=== PATIENT | male | born 1990 | race Caucasian/White ===

== ENCOUNTER 2023-03-08 20:13 | Emergency (ER) | payer OTHER, SELFPAY ==
[2023-03-08 20:17] VITALS: BP 167/100; PULSE 103; RESP 18; TEMP 36.2; O2SAT 98; BMI 25.8
--- NOTE | 2023-03-08 20:18 | ED_ITS ---
HPI - General Adult General Chief complaint: Extremity Problem Stated complaint: swollen limbs Time Seen by Provider: 03/08/23 22:59 Source: patient Mode of arrival: ambulatory Limitations: no limitations History of Present Illness HPI narrative: Patient's history of polysubstance abuse noticed increased leg swelling for last few months been to ER at [facility] noted to be with chronic liver disease workup is pending patient did not have follow-up patient denies any shortness of breath had venous Doppler done was negative patient patient denies any significant alcohol use Related Data Previous Rx's Medication Instructions Recorded magnesium oxide 400 mg PO DAILY #30 tabs 03/08/23 potassium chloride 10 mEq 10 meq PO DAILY #30 tabs 03/08/23 tablet,extended release (K-Tab) spironolactone 50 mg tablet 50 mg PO DAILY #30 tabs 03/08/23 Allergies Allergy/AdvReac Type Severity Reaction Status Date / Time No Known Allergies Allergy Verified 03/08/23 20:22 Review of Systems Review of Systems: Yes all other systems are reviewed and are negative [facility] Social History Social History Advance Directives: No Advance Directives Information Provided: No Physical Exam ED Vital Signs: Vital Signs - 24 hr 03/08/23 20:17 Temperature 97.1 F Pulse Rate 103 H Respiratory Rate 18 Blood Pressure 167/100 H Pulse Oximetry 98 Oxygen Delivery Method Room Air BMI result Body Mass Index 25.8 Appearance: Alert. Oriented X3. No acute distress. Eyes: icterus++ ENT: Pharynx normal. Oral Mucosa moist Neck: Normal inspection. Neck supple. CVS: Normal heart rate and rhythm. Pulses normal. Respiratory: No respiratory distress. Equal air entry bilateral, no wheezing/rales/rhonchi Abdomen: Soft and nontender. Bowel sounds are present, no mass palpable, no CVA tenderness Skin: Skin warm and dry. Normal skin color. Normal skin turgor. Extremities: trace lower extremity edema. No calf tenderness Neuro: Oriented X 3. No motor deficit. Course Course Course Narrative: RME - 32 yo male with history of IVDA, last used 4-5 days ago who presents to the ER for evaluation of puffy limps and swollen abdomen for the last 1 month. He has been to the ER at [facility] for the same. He had lower extremity ultrasounds but does not know the results because he was kicked out. He is hyperverbal and restless in triage. Trace LE edema, scleral icterus present. reports intermittent ETOH use, denies daily use. Plan: basic lab workup, utox, etoh Medications Administered Discontinued Medications Generic Name Dose Route Start Last Admin Trade Name Sonia PRN Reason Stop Dose Admin Magnesium Oxide 400 mg 03/08/23 23:07 03/08/23 23:36 Magnesium Oxide 400 Mg Tablet PO 03/08/23 23:08 400 mg ONCE ONE Administration Potassium Bicarbonate 25 meq 03/08/23 23:07 03/08/23 23:36 Potassium Bicarbonate/Cit Ac 25 Meq Tablet.Eff PO 03/08/23 23:08 25 meq ONCE ONE Administration Medical Decision Making Medical Decision Making [facility] Narrative: Patient with chronic liver disease likely hepatitis-C patient has seen director of category management and has been suspected to have hepatitis-c , have follow-up as outpatient. Patient does not have AF follow-up planned noncompliant. Also noticed to have low magnesium potassium which was replenished is to follow-up with his gastric dollars also was given contact information of [facility] gastro enterology Lab Data [facility] Lab Attestation statement: I reviewed the patient's lab results. 03/08/23 20:55 03/08/23 20:55 Labs: Lab Results 03/08/23 03/08/23 03/08/23 Range/Units 20:55 20:55 20:55 WBC 10.4 (4.8-10.8) X10*3/uL RBC 4.62 (4.60-5.80) X10*6/uL Hgb 14.5 (14.0-18.0) g/dl Hct 42.5 (42.0-52.0) % MCV 92.0 (80.0-98.0) fL MCH 31.4 (27.0-33.0) pg MCHC 34.1 (31.0-36.0) g/dl RDW 13.0 (11.0-16.0) % Plt Count 117 L (160-400) X10*3/uL MPV 11.1 (9.4-12.4) fL Immature Gran % (Auto) 0.2 (0.0-0.4) % Neut % (Auto) 58.2 (45-73) % Lymph % (Auto) 31.3 (20-40) % Mower % (Auto) 7.5 (2-11) % Eos % (Auto) 2.3 (0-4) % Baso % (Auto) 0.5 (0-2) % Lymph # (Auto) 3.3 (1.2-4.9) X10*3/uL Mower # (Auto) 0.8 (0.1-1.2) X10*3/uL Eos # (Auto) 0.2 (0.0-0.4) X10*3/uL Baso # (Auto) 0.1 (0.0-0.2) X10*3/uL Abs Immat Gran (auto) 0.02 (0.00-0.03) X10*3/uL Absolute Neuts (auto) 6.1 (2.0-8.3) x10*3/uL Absolute Nucleated RBC 0.000 (0.0-0.012) X10*3/uL Nucleated RBC % (auto) 0.0 (0.0-0.2) /100WBC PT (10.0-13.1) SEC INR (0.9-1.1) APTT (26.0-36.4) SEC Sodium 138 (135-145) mmol/L Potassium 3.2 L (3.3-5.1) mmol/L Chloride 99 (96-108) mmol/L Carbon Dioxide 24 (22-29) mmol/L Anion Gap 18 (12-20) BUN 8 L (9-16) mg/dL Creatinine 0.76 (0.5-1.4) mg/dL Estim Creat Clear Calc 127.0 Estimated GFR > 60 Random Glucose 111 (60-115) mg/dL Calcium 8.8 (8.4-10.2) mg/dL Magnesium 1.3 L* (1.6-2.6) mg/dL Total Bilirubin 7.0 H (0.0-1.0) mg/dL Direct Bilirubin 3.6 H (0.0-0.5) mg/dL AST 240 H (5-37) U/L ALT 90 H (0-40) U/L Alkaline Phosphatase 195 H (39-117) U/L B-Natriuretic Peptide < 10 (<100) pg/mL Total Protein 7.6 (6.5-8.0) g/dL Albumin 3.0 L (3.5-5.0) g/dL Ethyl Alcohol < 10 mg/dL 03/08/23 Range/Units 20:55 WBC (4.8-10.8) X10*3/uL RBC (4.60-5.80) X10*6/uL Hgb (14.0-18.0) g/dl Hct (42.0-52.0) % MCV (80.0-98.0) fL MCH (27.0-33.0) pg MCHC (31.0-36.0) g/dl RDW (11.0-16.0) % Plt Count (160-400) X10*3/uL MPV (9.4-12.4) fL Immature Gran % (Auto) (0.0-0.4) % Neut % (Auto) (45-73) % Lymph % (Auto) (20-40) % Mower % (Auto) (2-11) % Eos % (Auto) (0-4) % Baso % (Auto) (0-2) % Lymph # (Auto) (1.2-4.9) X10*3/uL Mower # (Auto) (0.1-1.2) X10*3/uL Eos # (Auto) (0.0-0.4) X10*3/uL Baso # (Auto) (0.0-0.2) X10*3/uL Abs Immat Gran (auto) (0.00-0.03) X10*3/uL Absolute Neuts (auto) (2.0-8.3) x10*3/uL Absolute Nucleated RBC (0.0-0.012) X10*3/uL Nucleated RBC % (auto) (0.0-0.2) /100WBC PT 14.0 H (10.0-13.1) SEC INR 1.2 H (0.9-1.1) APTT 36.4 (26.0-36.4) SEC Sodium (135-145) mmol/L Potassium (3.3-5.1) mmol/L Chloride (96-108) mmol/L Carbon Dioxide (22-29) mmol/L Anion Gap (12-20) BUN (9-16) mg/dL Creatinine (0.5-1.4) mg/dL Estim Creat Clear Calc Estimated GFR Random Glucose (60-115) mg/dL Calcium (8.4-10.2) mg/dL Magnesium (1.6-2.6) mg/dL Total Bilirubin (0.0-1.0) mg/dL Direct Bilirubin (0.0-0.5) mg/dL AST (5-37) U/L ALT (0-40) U/L Alkaline Phosphatase (39-117) U/L B-Natriuretic Peptide (<100) pg/mL Total Protein (6.5-8.0) g/dL Albumin (3.5-5.0) g/dL Ethyl Alcohol mg/dL Discharge Plan Discharge Clinical Impression: Chronic liver disease Patient Disposition: Home, Self-Care Instructions: Cirrhosis (ED) Additional Instructions: You have to follow up with director of category management for final diagnosis of liver disease Take magnesium, and potassium tablets as prescribed Water pill as prescribed Prescriptions: New magnesium oxide 400 mg magnesium tablet 400 mg PO DAILY Qty: 30 0RF potassium chloride [K-Tab] 10 mEq tablet extended release 10 meq PO DAILY Qty: 30 0RF spironolactone 50 mg tablet 50 mg PO DAILY Qty: 30 0RF Referrals: Guanakito Hernandez MD [Physician] - 1 week Interventions: ED Discharge Assessment Last Done: 03/08/23 23:38 Discharge Date/Time: 03/08/23 23:40
[2023-03-08 20:58] LABS: MANUAL DIFF FLAG NO
[2023-03-08 21:00] LABS: Basophils Absolute Auto 0.1 X10*3/uL (0.0-0.2); Basophils Percent Auto 0.5 % (0-2); Eosinophils Absolute Auto 0.2 X10*3/uL (0.0-0.4); Eosinophils Percent Auto 2.3 % (0-4); Hematocrit 42.5 % (42.0-52.0); Hemoglobin 14.5 g/dl (14.0-18.0); Imm Gran Abs Auto 0.02 X10*3/uL (0.00-0.03); Imm Gran Pct Auto 0.2 % (0.0-0.4); Lymphocytes Absolute Auto 3.3 X10*3/uL (1.2-4.9); Lymphocytes Percent Auto 31.3 % (20-40); Mean Corpuscular HGB Conc 34.1 g/dl (31.0-36.0); Mean Corpuscular Hemoglobin 31.4 pg (27.0-33.0); Mean Platelet Volume 11.1 fL (9.4-12.4); Monocytes Absolute Auto 0.8 X10*3/uL (0.1-1.2); Monocytes Percent Auto 7.5 % (2-11); Neutrophils Absolute Auto 6.1 x10*3/uL (2.0-8.3); Neutrophils Percent Auto 58.2 % (45-73); Platelet Count 117 X10*3/uL (160-400); Red Blood Count 4.62 X10*6/uL (4.60-5.80); White Blood Count 10.4 X10*3/uL (4.8-10.8)
[2023-03-08 21:05] LABS: INTERNATIONAL NORM RATIO 1.2 (0.9-1.1)
[2023-03-08 21:08] LABS: Partial Thromboplastin Time 36.4 SEC (26.0-36.4)
[2023-03-08 21:39] LABS: Alanine Aminotransferase 90 U/L (0-40); Alkaline Phosphatase 195 U/L (39-117); Anion Gap 18 (12-20); Aspartate Amino Transferase 240 U/L (5-37); Bilirubin Direct 3.6 mg/dL (0.0-0.5); Blood Urea Nitrogen 8 mg/dL (9-16); Calcium 8.8 mg/dL (8.4-10.2); Carbon Dioxide 24 mmol/L (22-29); Chloride 99 mmol/L (96-108); Estimated Glomerular Filt Rate > 60; Ethanol < 10 mg/dL; Glucose Random 111 mg/dL (60-115); Magnesium 1.3 mg/dL (1.6-2.6); Potassium 3.2 mmol/L (3.3-5.1); Sodium 138 mmol/L (135-145); Total Protein 7.6 g/dL (6.5-8.0)
[2023-03-08 22:28] LABS: B Type Natriuretic Peptide < 10 pg/mL (<100)
--- OUTSIDE RECORDS SUMMARY | 2023-03-08 23:07 | XMS_ITS | Continuity of Care Document ---
Author Name Unknown Organization [facility] ter Address [address] [place] [address]- Care Team Providers Care Rn Circulating Name Role Phone Lyle Robin SERRA Primary Care Physician [place] [facility] [place] - 08/13/[address] [address]- Discharge Disposition: A-D/C Home Attending Physician: Robert Soliman MD Admitting Physician: Dre Carreno MD Referring Physician: Not on Staff, Referring MD Allergies, Adverse Reactions, Alerts No Known Allergies Medications hydrOXYzine hydrochloride 10 mg oral tablet 0.5 tablet = 5 mg, By Mouth, 2 times a day, PRN Anxiety, # 5 tablet, 0 Refills, Acute 08/15/22 14:26:00 EST, 08/13/22 14:25:00 EDT, Tablet, [id number], Partial fill upon patient request if the prescription is for a schedule II opioid . 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 There was no radiologist in attendance. Fluoroscopy time: 1 minute 50 seconds. Technologist time: 75 minutes. Cumulative dose: 30 mGy FINDINGS: Several spot views show retrograde opacification of the biliary tree including the cystic duct and gallbladder without filling defects or strictures. IMPRESSION: See above. WSN: [id number] Ordering Physician: Javon Urbina Dictated By: Kong Viera MD Dictated Date/Time: 08/11/22 4:47 pm Reviewed By: Kong Viera MD Signed By: Kong Viera MD Signed Date/Time: 08/11/22 4:47 pm Transcribed By: TRESSA Transcribed Date/Time: 08/11/22 4:47 pm Vital Signs Most recent to oldest [Reference Range]: 1 2 3 Height 165.1 cm (08/13/22 3:09 PM) 165.1 cm (08/12/22 4:27 AM) 165.1 cm (08/11/22 7:41 PM) Weight 88.6 kg (08/11/22 3:00 PM) 88.6 kg (08/11/22 4:28 AM) Oxygen Saturation [94-100 %] 100 % (08/13/22 3:09 PM) 99 % (08/13/22 5:00 AM) 99 % (08/12/22 8:00 PM) Pulse Rate [55-90 bpm] 72 bpm (08/13/22 3:09 PM) 65 bpm (08/13/22 5:00 AM) 71 bpm (08/12/22 8:00 PM) Body Mass Index [18.5-24.99 kg/m2] 32.5 kg/m2 *>HHI* (08/11/22 3:00 PM) Blood Pressure [90-138/55-84 mm Hg] 129/85mm Hg (08/13/22 3:09 PM) 131/78mm Hg (08/13/22 5:00 AM) 134/80mm Hg (08/12/22 8:00 PM) Respiratory Rate [16-30 br/min] 16 br/min (08/13/22 3:09 PM) 16 br/min (08/13/22 8:10 AM) 18 br/min (08/13/22 5:00 AM) Temperature [96.8-100.4 DegF] 99.2 DegF (08/13/22 3:09 PM) 99.0 DegF (08/13/22 5:00 AM) 98.9 DegF (08/12/22 8:00 PM) Liters per Minute 2 L/min (08/11/22 5:08 PM) 2 L/min (08/11/22 5:00 PM) 2 L/min (08/11/22 4:56 PM) Mode of Delivery (Oxygen) Room air (08/13/22 3:09 PM) Room air (08/13/22 5:00 AM) Room air (08/12/22 8:00 PM) Blood pressure sites Arm, left (08/13/22 3:09 PM) Arm, left (08/13/22 5:00 AM) Arm, left (08/12/22 8:00 PM) Temperature Route Oral (08/13/22 3:09 PM) Axillary (08/13/22 5:00 AM) Oral (08/12/22 8:00 PM) Social History Social History Type Response Smoking Status 10 or more cigarette s (1/2 pack or more)/day in last 30 days entered on: 05/04/19 Sex Note * BHSPowerscribe , CIS S: TRANSCRIBE Kong Viera MD: VERIFY Event Display: Result: Authored Date: [id number] ERCP Both Ducts INDICATION: Hepatitis COMPARISONS: None TECHNIQUE: Fluoroscopy support was provided in the endoscopy suite using the C- arm. There was no radiologist in attendance. Fluoroscopy time: 1 minute 50 seconds. Technologist time: 75 minutes. Cumulative dose: 30 mGy FINDINGS: Several spot views show retrograde opacification of the biliary tree including the cystic duct and gallbladder without filling defects or strictures. IMPRESSION: See above. WSN: [id number] Ordering Physician: Javon Urbina Dictated By: Kong Viera MD Dictated Date/Time: 08/11/22 4:47 pm Reviewed By: Kong Viera MD Signed By: Kong Viera MD Signed Date/Time: 08/11/22 4:47 pm Transcribed By: TRESSA Transcribed Date/Time: 08/11/22 4:47 pm Patient Care team information Personnel Name: Lyle SERRARobin Address: Address: [address] [place] [id number]
--- OUTSIDE RECORDS SUMMARY | 2023-03-08 23:07 | XMS_ITS | Continuity of Care Document ---
Author Name Unknown Organization [facility] Address [address] [place] [address]- Care Team Providers Care Color Artist Name Role Phone Robin Alvarenga DO Primary Care Physician [place] [facility] [place]16[place] - 10/06/22 [facility] [address] [place] [address]- Attending Physician: Whitney STEELE, Tracie Lopez Admitting Physician: Tracie Olson MD Referring Physician: Robin Alvarenga DO Allergies, Adverse Reactions, Alerts No Known Allergies Medications Methadone = 86 mg, By Mouth, Daily, 0 Refills, Maintenance, 03/28/20 19:35:00 EDT, Partial fill upon patient request Start Date: 03/28/20 Status: Ordered Problem List Condition Confirmation Course Effective Dates Status Health St atus Informant 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 EDINSON (generalized anxiety disorder) Confirmed Active Obese class I Confirmed Active Opiate dependence Confirmed Active Social History Social History Type Response Smoking Status 10 or more cigarette s (1/2 pack or more)/day in last 30 days entered on: 05/04/19 Sex Patient Care team information Care Team Personnel Name: Darlene Soto RN Position: S RN Member Role: Primary Care Nurse Name: Sariah Saavedra RN Position: S RN Member Role: Primary Care Nurse Name: Marielle Godwin Position: [facility] RN Member Role: Primary Care Nurse Name: Robin Alvarenga DO Position: [facility] Physician (General Medicine) Member Role: PCP Address: Address: [address] [place] [address]- Name: Paulina Fitzpatrick RN Position: S RN Member Role: Primary Care Nurse Care Team Related Persons Name: MARIBELL RUSSELL Address: home [address] [place] [address] Name: CAROL RUSSELL Address: home [address] [place] [address]
--- OUTSIDE RECORDS SUMMARY | 2023-03-08 23:07 | XMS_ITS | Continuity of Care Document ---
Author Name Unknown Organization [facility] Address [address] [place] [address]- Care Team Providers Care Engineer Intern Name Role Phone Robin Alvarenga DO Primary Care Physician ( [phone] Encounter [facility] Date(s): 08/26/22 - 09/25/[address] [address] Allergies, Adverse Reactions, Alerts No Known Allergies [...] Team Personnel Name: Darlene Soto RN Position: [facility] RN Member Role: Primary Care Nurse Name: Sariah Saavedra RN Position: [facility] RN Member Role: Primary Care Nurse Name: Marielle Godwin Position: [facility] RN Member Role: Primary Care Nurse Name: Robin Alvarenga DO Position: [facility] Physician (General Medicine) Member Role: PCP Address: Address: [address] [place] [address] [place] [address]- Name: Paulina Fitzpatrick RN Position: S RN Member Role: Primary Care Nurse Care Team Related Persons Name: MARIBELL RUSSELL Address: home [address] [place], [place] Name: CAROL RUSSELL Address: home [address] [place] [address]
--- OUTSIDE RECORDS SUMMARY | 2023-03-08 23:07 | XMS_ITS | Continuity of Care Document ---
Author Name Unknown Organization [facility] Address [address] [place] [address]- Care Team Providers Care Light Rail Train Operator Name Role Phone Not on Staff, PCP Primary Care Physician Unavail able [place] [facility] [place]10[place] - 01/09/23 [facility] [address] [place] [address]- Allergies, Adverse Reactions, Alerts No Known Allergies [...] Primary Care Nurse Name: Marielle Godwin Position: [facility] RN Member Role: Primary Care Nurse Name: Not on Staff, PCP Position: [facility] Physician (General Medicine) Member Role: PCP Care Team Related Persons Name: MARIBELL RUSSELL Address: [address] [place] Name: CAROL RUSSELL Address: home [address] [place], [place]
--- OUTSIDE RECORDS SUMMARY | 2023-03-08 23:07 | XMS_ITS | Continuity of Care Document ---
Author Name Unknown Organization [facility] Address [address] [place] [address]- Care Team Providers Care Cerner Analyst Name Role Phone Robin Alvarenga DO Primary Care Physician En[place] [facility] [place] Date(s): 08/17/22 - 09/16/22 [facility] [address] [place] [address]- Allergies, Adverse Reactions, Alerts No Known Allergies [...] Member Role: Primary Care Nurse Name: Sariah Saavedar RN Position: S RN Member Role: Primary Care Nurse Name: Marielle Godwin Position: [facility] RN Member Role: Primary Care Nurse Name: Robin Alvarenga DO Position: [facility] Physician (General Medicine) Member Role: PCP Address: Address: [address] [place] [address]- [place] Name: Paulina Fitzpatrick RN Position: S RN Member Role: Primary Care Nurse Care Team Related Persons Name: MARIBELL RUSSELL Address: home [address] [place] [address] Name: CAROL RUSSELL Address: home [address] [place] [address]
--- OUTSIDE RECORDS SUMMARY | 2023-03-08 23:07 | XMS_ITS | Continuity of Care Document ---
Author Name Unknown Organization [facility] Address [address] [place] [address]- Care Team Providers Care Senior Front End Engineer Name Role Phone Robin Alvarenga DO Primary Care Physician ( [phone] [place] [facility] [place]/22 [facility] [address] [place] [address]- Allergies, Adverse Reactions, Alerts No Known Allergies [...] Primary Care Nurse Name: Marielle Godwin Position: [facility] RN Member Role: Primary Care Nurse Name: Robin Alvarenga DO Position: [facility] Physician (General Medicine) Member Role: PCP Address: Address: [address] [place] [address]- [place] Name: Paulina Fitzpatrick RN Position: S RN Member Role: Primary Care Nurse Care Team Related Persons Name: MARIBELL RUSSELL Address: home [address] [place] [address] Name: CAROL RUSSELL Address: home [address] [place], [place]
--- OUTSIDE RECORDS SUMMARY | 2023-03-08 23:07 | XMS_ITS | Continuity of Care Document ---
Author Name Unknown Organization [facility] Address [address] [place] [address]- Care Team Providers Care Mat Machine Operator Name Role Phone Robin Alvarenga DO Primary Care Physician Encounter [facility] [place] Date(s): 12/31/20 - 01/30/21 [facility] [address] [place], [place] [address] Attending Physician: Irais Schwartz Admitting Physician: AdmIrais bangura Referring Physician: AdmtrIrais Allergies, Adverse Reactions, Alerts Substance Reaction Severity Status NKA Active Medications Benadryl 25 mg oral capsule 1 capsule = 25 mg, By Mouth, 3 times a day, PRN Itch, # 30 capsule, 0 Refills, Maintenance, Capsule Start Date: 02/22/10 Status: Ordered Methadone = 65 mg, By Mouth, Daily, 0 Refills, Maintenance, 03/28/20 19:35:00 EDT, Partial fill upon patient request Start Date: 03/28/20 Status: Ordered Problem List Condition Effective Dates Status Health Status Inform ant 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
--- OUTSIDE RECORDS SUMMARY | 2023-03-08 23:07 | XMS_ITS | Continuity of Care Document ---
Author Name Unknown Organization [facility] Address [address] [place] [address]- Care Team Providers Care Purse Maker Name Role Phone Robin Alvarenga DO Primary Care Physician En[place] [facility] [place] Date(s): 08/13/22 - 09/12/22 [facility] [address] [place] [address]- Allergies, Adverse Reactions, Alerts No Known Allergies [...] Primary Care Nurse Name: Marielle Godwin Position: [facility] RN Member Role: Primary Care Nurse Name: Robin Alvarenga DO Position: [facility] Physician (General Medicine) Member Role: PCP Address: Address: [address] [place] [address]- [place] Name: Paulina Fitzpatrick RN Position: S RN Member Role: Primary Care Nurse Care Team Related Persons Name: MARIBELL RUSSELL Address: home [address] [place] [address] Name: CAROL RUSSELL Address: home [address] [place] [address]
--- OUTSIDE RECORDS SUMMARY | 2023-03-08 23:07 | XMS_ITS | Continuity of Care Document ---
Author Name Unknown Organization [facility] Address [address] [place] [address]- Care Team Providers Care Electric System Operator Name Role Phone Robin Alvarenga DO Primary Care Physician [place] [facility] [place] 09[place]/22 [facility] [address] [place] [address]- Allergies, Adverse Reactions, Alerts No Known Allergies [...] Primary Care Nurse Name: Marielle Godwin Position: [facility] RN Member Role: Primary Care Nurse Name: Robin Alvarenga DO Position: [facility] Physician (General Medicine) Member Role: PCP Address: Address: [address] [place] [phone]- [place] Name: Paulina Fitzpatrick RN Position: S RN Member Role: Primary Care Nurse Care Team Related Persons Name: MARIBELL RUSSELL Address: home [address] [place] [address] Name: CAROL RUSSELL Address: home [address] [place], [place]
--- OUTSIDE RECORDS SUMMARY | 2023-03-08 23:07 | XMS_ITS | Continuity of Care Document ---
Author Name Unknown Organization [facility] Address [address] [place] [address]- Care Team Providers Care Health And Fitness Instructor Name Role Phone Robin Alvarenga DO Primary Care Physician En[place] [facility] [place] Date(s): 12/31/20 - 01/07/21 [facility] [address] [place], [place] [address] Attending Physician: Rahel Olivares MD Allergies, Adverse Reactions, Alerts Substance Reaction Severity [...]
[2023-03-08] MEDS: Potassium Bicarbonate/Cit AC 25 MEQ TABLET.EFF PO (23:36)
[2023-03-08] MEDS: Magnesium Oxide 400 MG TABLET PO (23:36)
== END 2023-03-08 23:40 | disposition home or self-care (01) ==
PROVIDERS: Physician Assistant; Emergency Provider Internal Medicine
DX: K76.9 Liver disease, unspecified (principal); R60.0 Localized edema; F19.10 Other psychoactive substance abuse, uncomplicated
CPT/HCPCS: 36415; 80048; 80076; 80307; 83735; 83880; 85025; 85610; 85730; 99282; 99283

== ENCOUNTER 2023-06-11 19:05 | Emergency (ER) | payer OTHER, SELFPAY ==
--- NOTE | 2023-06-11 19:10 | ED.GENADULT ---
HPI - General Adult General Chief complaint: General Medical Stated complaint: med refill Related Data Previous Rx's Medication Instructions Recorded magnesium oxide 400 mg PO DAILY #30 tabs 03/08/23 potassium chloride 10 mEq 10 meq PO DAILY #30 tabs 03/08/23 tablet,extended release (K-Tab) spironolactone 50 mg tablet 50 mg PO DAILY #30 tabs 03/08/23 Allergies Allergy/AdvReac Type Severity Reaction Status Date / Time No Known Allergies Allergy Verified 06/11/23 19:11 [facility] Social History Social History Advance Directives: No Advance Directives Information Provided: No Physical Exam ED Vital Signs: BMI result Body Mass Index 29.1 Course Course Course Narrative: RME: 33yo M w/PMHx substance abuse presenting to ED for Methadone dose as missed Methadone dose today due to being stuck at work. States dose is 120mg. Last dose yesterday, goes to [facility] on [address]. Denies usin any illicit substances today. However states he is in a program and his urine will still show stuff in it Patient states he spoke with Renea today and his last dose letter was sent to the ED earlier today NOLAND ordered Full HPI, ROS and PE to be performed by primary ED provider. Discharge Plan Discharge Clinical Impression: Methadone dependence Patient Disposition: Elopement Prescriptions: No Action magnesium oxide 400 mg magnesium tablet 400 mg PO DAILY Qty: 30 0RF potassium chloride [K-Tab] 10 mEq tablet extended release 10 meq PO DAILY Qty: 30 0RF spironolactone 50 mg tablet 50 mg PO DAILY Qty: 30 0RF Interventions: ED Discharge Assessment Last Done: 06/11/23 21:39 Discharge Date/Time: 06/11/23 22:02
[2023-06-11 19:11] VITALS: BP 118/83; PULSE 113; RESP 17; TEMP 37.1; O2SAT 97; BMI 29.1
== END 2023-06-11 22:02 | disposition left against medical advice (07) ==
PROVIDERS: Emergency Provider Emergency Medicine; PCP Family Medicine
DX: Z76.0 Encounter for issue of repeat prescription (principal); F11.20 Opioid dependence, uncomplicated
CPT/HCPCS: 99282

== ENCOUNTER 2023-09-05 18:44 | Emergency (ER) | payer OTHER, SELFPAY ==
[2023-09-05 19:41] VITALS: BP 151/99; PULSE 82; RESP 18; TEMP 36.2; O2SAT 97; BMI 29.5
--- NOTE | 2023-09-05 19:41 | ED_ITS ---
HPI - General Adult General Chief complaint: General Medical Stated complaint: missed methadone Time Seen by Provider: 09/05/23 19:45 Source: patient Mode of arrival: ambulatory Limitations: no limitations History of Present Illness HPI narrative: 33 yo male here with missed methadone dose. Last dose 09/03 125mg. Goes to [facility] ([facility]). NO additional complaints. Seeking methadone dose. Related Data Previous Rx's Medication Instructions Recorded magnesium oxide 400 mg PO DAILY #30 tabs 03/08/23 potassium chloride 10 mEq 10 meq PO DAILY #30 tabs 03/08/23 tablet,extended release (K-Tab) spironolactone 50 mg tablet 50 mg PO DAILY #30 tabs 03/08/23 Allergies Allergy/AdvReac Type Severity Reaction Status Date / Time No Known Allergies Allergy Verified 06/11/23 19:11 Review of Systems Review of Systems: Yes all other systems are reviewed and are negative Constitutional: Constitutional: Reports no additional constitutional complaints, Denies body ache(s), Denies chills, Denies fever(s), Denies headache(s) and Denies weakness Eyes: Eyes: Reports no additional eye complaints and Denies change in vision ENT: Reports system reviewed and no additional complaints, except as documented, Denies dizziness, Denies headache(s), Denies nasal congestion, Denies nasal discharge and Denies neck pain Cardiovascular: Cardiovascular: Reports no additional cardiovascular complaints, Denies chest pain, Denies leg edema and Denies dyspnea Respiratory: Respiratory: Reports no additional respiratory complaints, Denies cough and Denies dyspnea Gastrointestinal: Gastrointestinal: Reports no additional gastrointestinal complaints, Denies abdominal pain, Denies diarrhea, Denies nausea and Denies vomiting Genitourinary: Genitourinary: Denies urinary incontinence Musculoskeletal: Musculoskeletal: Reports no additional musculoskeletal complaints, Denies back pain, Denies arthralgias, Denies joint swelling, Denies neck pain, Denies numbness and Denies tingling Integumentary/Breasts: Skin/Breast: Reports system reviewed and no additional complaints, except as docu and Denies rash Neurologic: Reports system reviewed and no additional complaints, except as documented, Denies Abnormal speech present, Denies dizziness, Denies headache(s), Denies numbness, Denies tingling and Denies weakness [facility] Past Medical History Attestation statement: The following information was validated with the patient. Source: old records reviewed and nursing notes reviewed Social History Advance Directives: No Advance Directives Information Provided: No Physical Exam ED Vital Signs: Vital Signs - 24 hr 09/05/23 19:41 Temperature 97.2 F Pulse Rate 82 Respiratory Rate 18 Blood Pressure 151/99 H Pulse Oximetry 97 Oxygen Delivery Method Room Air BMI result Body Mass Index 29.5 Const General: cooperative, healthy appearing, comfortable and no acute distress Orientation/consciousness: patient oriented x3 Limitations: no limitations HENMT Head: Yes normal to inspection Ears: hearing grossly normal bilaterally General nose exam: Normal external nose present Face and sinus: Yes normal facial exam Mouth: Normal oral and palatal mucosa present Throat: Yes posterior oropharynx normal Eyes General: appearance normal, both eyes and all related structures Pupils: Equal, round and reactive pupils present Neck Neck: Yes normal visual inspection Chest Chest palpation & inspection: normal inspection of the chest Resp Effort & Inspection: normal respiratory effort Auscultation: clear to auscultation bilaterally Cardio Rate: regular rate Rhythm: regular rhythm Peripheral pulses: Peripheral pulses 2+ throughout GI Inspection: Yes normal to inspection Palpation (GI): Soft to palpation and nontender Auscultation: normal bowel sounds Back/Spine/Pelvis Thoracic/Lumbar Spine: thoracic and lumbar spine normal to inspection Skin General skin exam: no rashes or lesions noted Neuro General: patient oriented x3, no focal motor deficits and normal sensation to monofilament Cranial nerves: Yes Equal, round and reactive pupils present Cognition (Neuro): normal cognition Speech: No Abnormal speech present Gait exam (Neuro): Normal gait present Motor exam (neuro): 5/5 motor strength present throughout Extrem General: Yes normal to inspection Course Course Course Narrative: This is a rapid medical exam. Deferred additional HPi, ROS, PE to primary provider. 33 yo male here with missed methadone dose. Last dose 09/03 125mg. Goes to [facility] ([facility]). NO additional complaints. Seeking methadone dose. VSS Medications Administered Discontinued Medications Generic Name Dose Route Start Last Admin Trade Name Freq PRN Reason Stop Dose Admin Methadone HCl 125 mg 09/05/23 19:45 09/05/23 20:54 Methadone Hcl 20 Mg/2 Ml Oral.Conc PO 09/05/23 19:46 125 mg ONCE ONE Administration Medical Decision Making Medical Decision Making MDM Narrative: 33 yo male here with missed methadone dose. Last dose 09/03 125mg. Goes to [facility] ([facility]). NO additional complaints. Seeking methadone dose. Called and spoke to clinic ([facility]) and confirmed last dose was 09/03 of 125mg Dose ordered for patient Differential Diagnosis Differential Diagnoses: The differential diagnosis associated with the present ation includes OUD External Record Review External record reviewed: Outpatient record Discharge Plan Discharge Clinical Impression: Opioid use disorder Patient Disposition: Home, Self-Care Instructions: Opioid Use Disorder (ED) Additional Instructions: Continue to follow up with your clinic Prescriptions: No Action magnesium oxide 400 mg magnesium tablet 400 mg PO DAILY Qty: 30 0RF potassium chloride [K-Tab] 10 mEq tablet extended release 10 meq PO DAILY Qty: 30 0RF spironolactone 50 mg tablet 50 mg PO DAILY Qty: 30 0RF
--- NOTE | 2023-09-05 19:53 | HE.PHANOTE ---
METHADONE VERIFICATION FORM- [facility] 125 MG PO
[2023-09-05 20:00] VITALS: BP 147/104; PULSE 80; RESP 18; O2SAT 96
--- NOTE | 2023-09-05 20:35 | PC.NURSE ---
notified by PA to call pt back to [facility] to give methadone/papers- called in waiting room- no answer.
[2023-09-05] MEDS: methADONE HCl 20 MG/2 ML ORAL.CONC 125 MG PO (20:54)
--- NOTE | 2023-09-05 20:58 | PC.NURSE ---
dad is present and took the pt (son) keys. vehicle is being left in the parking lot and the dad is the new car driver home. pt is tearful, being talked to by his dad. pt feeling anxiouse due to his keys are taken from him by the father.
== END 2023-09-05 21:16 | disposition home or self-care (01) ==
LOC: HO.ED 20:35
PROVIDERS: Emergency Provider Emergency Medicine
DX: F11.20 Opioid dependence, uncomplicated (principal)
CPT/HCPCS: 99283; 99284

== ENCOUNTER 2023-09-06 19:41 | Emergency (ER) | payer OTHER, SELFPAY ==
[2023-09-06 19:43] VITALS: BP 144/99; PULSE 95; RESP 18; TEMP 36.8; O2SAT 95; BMI 26.6
--- NOTE | 2023-09-06 19:45 | ED_ITS ---
HPI - General Adult General Chief complaint: General Medical Stated complaint: missed methadone dose Time Seen by Provider: 09/06/23 22:52 Source: patient and family Mode of arrival: ambulatory Limitations: no limitations History of Present Illness HPI narrative: Patient is a 33-year-old male who presents emergency department with a his father requesting methadone dosing. He states that he was in [place] today for work and he was unable to get to the clinic to take methadone. Of note he was seen here in the emergency department yesterday evening as well as he missed his methadone dosing reporting that he was in [place] working. He is requesting to be dosed in the emergency department, expressing concerns for possible withdrawal. He reports feeling anxious, denies any suicidal or homicidal ideations. He denies any drug or alcohol usage. Related Data Previous Rx's Medication Instructions Recorded magnesium oxide 400 mg PO DAILY #30 tabs 03/08/23 potassium chloride 10 mEq 10 meq PO DAILY #30 tabs 03/08/23 tablet,extended release (K-Tab) spironolactone 50 mg tablet 50 mg PO DAILY #30 tabs 03/08/23 Allergies Allergy/AdvReac Type Severity Reaction Status Date / Time fish derived [fish] Allergy Anaphylaxis Verified 09/06/23 19:48 shellfish derived Allergy Anaphylaxis Verified 09/06/23 19:48 Review of Systems Review of Systems: Yes all other systems are reviewed and are negative PMFSH Past Medical History Attestation statement: The following information was validated with the patient. Source: old records reviewed Social History Social History Alcohol intake: current Alcohol intake frequency: 3 or more drinks per day Alcohol type: hard liquor Advance Directives: No Advance Directives Information Provided: Yes Physical Exam ED Vital Signs: Vital Signs - 24 hr 09/06/23 19:43 Temperature 98.2 F Pulse Rate 95 Respiratory Rate 18 Blood Pressure 144/99 H Pulse Oximetry 95 Oxygen Delivery Method Room Air BMI result Body Mass Index 26.6 Appearance: Alert.?Oriented to person, place and time. Anxious and tearful at times. Argumentative towards father Eyes: Pupils equal, round and reactive to light.? ENT: Pharynx normal.?? Neck: Normal inspection.? Neck supple.?? CVS: Heart sounds normal. Normal heart rate and rhythm.? Pulses normal.?? Respiratory: No respiratory distress.? Lung sounds clear to auscultation bilaterally?? Abdomen: Soft and non-tender. Normoactive bowel sounds. Skin: Skin warm and dry.? Normal skin color.? Extremities: No lower extremity edema. Neuro: Moves all extremities spontaneously. Sensation intact bilaterally. CN II- XII intact. Ambulates with normal steady gait. Course Course Course Narrative: This is an RME: Additional HPI, ROS, PE not included below will be deferred to primary provider. 33 year old male presenting requesting methadone dose takes 125 mg seen at [facility]. Patient was seen here yesterday for same Medications Administered Discontinued Medications Generic Name Dose Route Start Last Admin Trade Name Freq PRN Reason Stop Dose Admin Methadone HCl 125 mg 09/06/23 23:12 09/06/23 23:26 Methadone Hcl 20 Mg/2 Ml Oral.Conc PO 09/06/23 23:13 125 mg ONCE ONE Administration Medical Decision Making Medical Decision Making MDM Narrative: Patient is a 33-year-old male past medical history of opioid use disorder, anxiety presenting to the emergency department requesting dosing of methadone. He was seen in the emergency department yesterday, his last dose of methadone from [facility] in [place], [place] ([address]) was on 09/03 and dosed with 125 mg. This was confirmed with the clinic yesterday. He received 125 mg orally in the emergency department last night and was discharged home. I had not length discussion with patient, advised that we will dose his methadone tonight as well, but all further dosing must come from his methadone clinic. If he is having issues with getting to his current Clinic he should seek alternative Clinics. He is notably anxious at the time of evaluation, he got into an argument with his father while in the waiting room, per his father this is not a typical behavior for him and he expresses no concerns in regards to patient's current demeanor. He denies suicidal or homicidal ideations. When asked whether he has interest in speaking with our CARE team he declines. After receiving methadone dosing he became increasingly more anxious and tearful, when asked he states this happens after he receives dosing and is normal for him. His father is present who affirms that this is typical. Security presence was required due to his behavior in the waiting room with his father and increasing anxiety. Father took the keys to his vehicle, and will be driving the patient home today. When asked patient feels comfortable with plan of care for discharge with his father. Provided with last dose letter Differential Diagnosis Differential Diagnoses: The differential diagnosis associated with the presentation includes (Opioid use disorder, anxiety, panic attack) Independent Historian Clinical information obtained from an independent historian. History obtained from or confirmed by: Parent (Present at bedside who confirms history) External Record Review External record reviewed: Outpatient record Social Determinants Patient?s care significantly limited by Social Determinants of Health including: Alcoholism and drug addiction in family Discharge Plan Discharge Clinical Impression: Opioid use disorder Patient Disposition: Home, Self-Care Instructions: Opioid Use Disorder (ED) Additional Instructions: You MUST follow-up with your methadone clinic tomorrow for any further dosing. Prescriptions: No Action magnesium oxide 400 mg magnesium tablet 400 mg PO DAILY Qty: 30 0RF potassium chloride [K-Tab] 10 mEq tablet extended release 10 meq PO DAILY Qty: 30 0RF spironolactone 50 mg tablet 50 mg PO DAILY Qty: 30 0RF Referrals: Physician,Unknown J [Primary Care Provider] - Interventions: ED Discharge Assessment Last Done: 09/06/23 23:28 Discharge Date/Time: 09/06/23 23:35
--- NOTE | 2023-09-06 23:03 | PC.NURSE ---
pt getting aggressive with father and staff, Provider at bedside
[2023-09-06] MEDS: methADONE HCl 20 MG/2 ML ORAL.CONC 125 MG PO (23:26)
== END 2023-09-06 23:35 | disposition home or self-care (01) ==
PROVIDERS: Emergency Provider Emergency Medicine
DX: F11.20 Opioid dependence, uncomplicated (principal)
CPT/HCPCS: 99282; 99283

== ENCOUNTER 2024-01-19 19:23 | Emergency (ER) | payer OTHER, SELFPAY ==
[2024-01-19 19:26] VITALS: BP 135/75; PULSE 120; RESP 20; TEMP 37.4; O2SAT 97; BMI 28.3
--- NOTE | 2024-01-19 19:26 | ED.GENADULT ---
HPI - General Adult General Chief complaint: General Medical Stated complaint: methodone dose Time Seen by Provider: 01/19/24 19:55 Source: patient Mode of arrival: ambulatory Limitations: no limitations History of Present Illness HPI narrative: 33 yo male with history of opioid use disorder on methadone 85 mg presents for methdone dosing after he missed his dose day. He states he missed the clinic by a few minutes. He is now reporting not feeling so good and requesting methadone dosing here now. denies recent drug use. MD complaint: methadone dosing Associated symptoms: other (anxiety) Treatments prior to arrival: none Related Data Previous Rx's ?Medication ?Instructions ?Recorded magnesium oxide 400 mg PO DAILY #30 tabs 03/08/23 potassium chloride 10 mEq 10 meq PO DAILY #30 tabs 03/08/23 tablet,extended release (K-Tab) spironolactone 50 mg tablet 50 mg PO DAILY #30 tabs 03/08/23 Allergies Allergy/AdvReac Type Severity Reaction Status Date / Time fish derived [fish] Allergy Anaphylaxis Verified 01/19/24 19:29 shellfish derived Allergy Anaphylaxis Verified 01/19/24 19:29 Review of Systems Review of Systems: Yes all other systems are reviewed and are negative [facility] Social History Social History Alcohol intake: current Alcohol intake frequency: 3 or more drinks per day Alcohol type: hard liquor Advance Directives: No Advance Directives Information Provided: No Physical Exam ED Vital Signs: Vital Signs - 24 hr 01/19/24 19:26 Temperature 99.4 F Pulse Rate 120 H Respiratory Rate 20 Blood Pressure 135/75 Pulse Oximetry 97 Oxygen Delivery Method Room Air BMI result Body Mass Index 28.3 Appearance: Alert. Oriented X3. No acute distress. HEENT: normal inspection CVS: tachycardic, regular rhythm, hr 100s Respiratory: No respiratory distress. Skin: Skin warm and dry. Normal skin color. Extremities: grossly normal to inspection Neuro: Oriented X 3. No motor deficit. No sensory deficit. Medications Administered Discontinued Medications Generic Name Dose Route Start Last Admin Trade Name Freq PRN Reason Stop Dose Admin Methadone HCl 85 mg 01/19/24 19:52 01/19/24 20:33 Methadone Hcl 20 Mg/2 Ml Oral.Conc PO 01/19/24 19:53 85 mg ONCE ONE Administration Medical Decision Making Medical Decision Making MDM Narrative: 33 yo male with history of IVDA on methadone 85 mg at [facility] presenting for methadone dosing. dose has been verified by nursing. last received yesterday will dose today and he will f/u with the clinic tomorrow he is also asking for ativan refill - [employer] reviewed, last received klonopin rx in nov. will not refer to his prescriber/pcp for this, patient expressed understanding. stable for d/c home Differential Diagnosis Differential Diagnoses: The differential diagnosis associated with the presentation includes opiate withdrawal, opiate dependence, polysubstance abuse, drug intoxication, alcohol intoxication, alcohol withdrawal External Record Review External record reviewed: Outpatient record and Prior outpatient labs Tests considered The following testing was considered but not selected: considered ekg to check qtc Prescription Management I considered prescription management with: Other (anxiolytic ) Chronic Conditions Patient?s care impacted by: Other (substance use disorder, liver disease, anxiety) Social Determinants Patient?s care significantly limited by Social Determinants of Health including: Alcoholism and drug addiction in family, Problems related to primary support group and Other Social Determinant of Health Critical Care Time Critical Care Time Critical Care Time: No Discharge Plan Discharge Clinical Impression: Opioid use disorder Patient Disposition: Home, Self-Care Instructions: Opioid Use Disorder (ED) Additional Instructions: You were given 85 mg of methadone today, at 8pm Follow up with [facility] clinic tomorrow for further dosing If you develop new or worsening symptoms call 911 or come back to the ER for further evaluation. Prescriptions: No Action magnesium oxide 400 mg magnesium tablet 400 mg PO DAILY Qty: 30 0RF potassium chloride [K-Tab] 10 mEq tablet extended release 10 meq PO DAILY Qty: 30 0RF spironolactone 50 mg tablet 50 mg PO DAILY Qty: 30 0RF Interventions: ED Discharge Assessment Last Done: 01/19/24 20:43 Discharge Date/Time: 01/19/24 20:45 Print Language: Guyanese
--- NOTE | 2024-01-19 19:49 | PC.NURSE ---
[facility] clinic called, methadone dose verified will notify provider and fax to pharmacy
--- NOTE | 2024-01-19 19:54 | HE.PHANOTE ---
METHADONE CONFIRMATION FORM PATIENT TAKES 85 MG OF METHADONE FROM [facility]. LAST DOSE 01/16 @ 0344
[2024-01-19] MEDS: methADONE HCl 20 MG/2 ML ORAL.CONC 85 MG PO (20:33)
[2024-01-19 20:43] VITALS: BP 138/74; PULSE 96; RESP 18; TEMP 36.7; O2SAT 98
--- NOTE | 2024-01-19 20:44 | PC.NURSE ---
pt medicated per DEC w/ 85mg methadone, last dose letter provided
== END 2024-01-19 20:45 | disposition home or self-care (01) ==
LOC: HO.ED 20:36
PROVIDERS: Emergency Provider Internal Medicine
DX: F11.188 Opioid abuse with other opioid-induced disorder (principal); Z91.148 Patient's other noncompliance with medication regimen for other reason
CPT/HCPCS: 99282; 99283

== ENCOUNTER 2024-03-03 12:06 | Emergency (ER) | payer OTHER, SELFPAY ==
--- NOTE | 2024-03-03 12:45 | ED.GENADULT ---
HPI - General Adult General Chief complaint: General Medical Stated complaint: Methadone dose Time Seen by Provider: 03/03/24 14:01 Source: patient and RN notes reviewed Mode of arrival: ambulatory Limitations: no limitations History of Present Illness ED Provider: Court Fontana PA-C [facility] narrative: This is a 33-year-old male, with a history of opioid use disorder on methadone, who presents emergency department for methadone dosing. Patient reports that he is on methadone 50 mg by mouth and last received his dose yesterday. He states that he lost track of time today and missed receiving his dose in his clinic is closed at this time. Patient is feeling well, no current complaints. No other complaints or concerns at this time. MD complaint: Methadone dose Relieving factors: none Exacerbating factors: none Associated symptoms: denies other symptoms Treatments prior to arrival: none Related Data Home Medications ?Medication ?Instructions ?Recorded ?Confirmed methadone 10 mg/mL oral concentrate 50 mg PO DAILY 03/03/24 03/05/24 Previous Rx's ?Medication ?Instructions ?Recorded magnesium oxide 400 mg PO DAILY #30 tabs 03/08/23 potassium chloride 10 mEq 10 meq PO DAILY #30 tabs 03/08/23 tablet,extended release (K-Tab) spironolactone 50 mg tablet 50 mg PO DAILY #30 tabs 03/08/23 Allergies Allergy/AdvReac Type Severity Reaction Status Date / Time fish derived [fish] Allergy Anaphylaxis Verified 03/05/24 13:08 shellfish derived Allergy Anaphylaxis Verified 03/05/24 13:08 Review of Systems Review of Systems: Yes all other systems are reviewed and are negative Constitutional: Constitutional: Reports as per [facility] Past Medical History Attestation statement: The following information was validated with the patient. Social History Social History Alcohol intake: current Alcohol intake frequency: 3 or more drinks per day Alcohol type: hard liquor Advance Directives: No Advance Directives Information Provided: Yes Physical Exam ED Vital Signs: Vital Signs - 24 hr 03/03/24 12:47 Temperature 98.7 F Pulse Rate 99 Respiratory Rate 18 Blood Pressure 148/100 H Pulse Oximetry 99 Oxygen Delivery Method Room Air BMI result Body Mass Index 30.0 Const General: cooperative, comfortable and no acute distress Orientation/consciousness: patient oriented x3 Limitations: no limitations HENMT Head: Yes normal to inspection, Yes normocephalic and Yes atraumatic Ears: hearing grossly normal bilaterally General nose exam: Normal external nose present Face and sinus: Yes normal facial exam Mouth: Normal oral and palatal mucosa present, oropharynx normal and moist mucous membranes Throat: Yes posterior oropharynx normal Eyes General: appearance normal, both eyes and all related structures Eyelids: Yes eyelids normal Conjunctivae: conjunctivae normal Sclerae: sclerae normal Pupils: Equal, round and reactive pupils present EOM: EOMs intact bilaterally Neck Neck: Yes normal visual inspection, Yes full ROM and Yes no lymphadenopathy Lymphatic: no lymphadenopathy noted Chest Chest palpation & inspection: normal inspection of the chest Resp Effort & Inspection: normal respiratory effort and able to speak in complete sentences Auscultation: clear to auscultation bilaterally, no crackles, no rales, no rhonchi and no wheezes Cardio Rate: regular rate Rhythm: regular rhythm Heart sounds: S1 normal heart sound present and S2 normal heart sound present GI Inspection: Yes normal to inspection Skin General skin exam: no rashes or lesions noted Trauma: no lacerations or abrasions Wounds: no wounds Neuro General: patient oriented x3 and moves all extremities Cranial nerves: Yes Equal, round and reactive pupils present Extrem General: Yes normal to inspection Right upper extremity: normal to inspection Left upper extremity: normal to inspection Right lower extremity: normal to inspection Left lower extremity: normal to inspection Course Reevaluation(s) Reevaluation #1: confirmed dosage, given in department, advised to f/u with methadone clinic outpatient. Given return precautions.Stable for d/c. Medications Administered Discontinued Medications Generic Name Dose Route Start Last Admin Trade Name Sonia PRN Reason Stop Dose Admin Methadone HCl 50 mg 03/03/24 13:52 03/03/24 15:02 Methadone Hcl 20 Mg/2 Ml Oral.Conc PO 03/03/24 13:53 50 mg ONCE ONE Administration Medical Decision Making Medical Decision Making MDM Narrative: This is a [id number], with a history of opioid dependence on methadone 55mg PO - goes to [facility], who presents to the ER for methadone dosing. Pt reports he lost track of time while mowing lawns this morning. Plan: Call methadone clinic for last dose Differential Diagnosis Differential Diagnoses: The differential diagnosis associated with the presentation includes opioid dependence, methadone dependence, substance use disorder, anxiety Discharge Plan Discharge Clinical Impression: Methadone dependence Patient Disposition: Home, Self-Care Instructions: Opioid Use Disorder (ED) Additional Instructions: You were seen in the emergency department for methadone dosing. You received methadone 50 mg by mouth in the emergency department today. This very important that you follow-up with your methadone clinic tomorrow for resumption of treatment. If any new or worsening symptoms occur including but not limited to chest pain, shortness of breath, please return for re-evaluation. Prescriptions: No Action methadone 10 mg/mL Concentrate 50 mg PO DAILY magnesium oxide 400 mg magnesium tablet 400 mg PO DAILY Qty: 30 0RF potassium chloride [K-Tab] 10 mEq tablet extended release 10 meq PO DAILY Qty: 30 0RF spironolactone 50 mg tablet 50 mg PO DAILY Qty: 30 0RF Interventions: ED Discharge Assessment Last Done: 03/03/24 15:05 Discharge Date/Time: 03/03/24 15:07 Print Language: Belarusian
[2024-03-03 12:47] VITALS: BP 148/100; PULSE 99; RESP 18; TEMP 37.1; O2SAT 99
--- NOTE | 2024-03-03 14:50 | HE.PHANOTE ---
Methadone Patient receives at [facility], . DIANE Benedict, from facility states patient last received 50mg on 03/02/24 16:53pm.
[2024-03-03] MEDS: methADONE HCl 20 MG/2 ML ORAL.CONC 50 MG PO (15:02)
[2024-03-03 15:05] VITALS: BP 177/106; PULSE 71; RESP 18; TEMP 36.3; O2SAT 99
== END 2024-03-03 15:07 | disposition home or self-care (01) ==
LOC: HO.ED 14:09
PROVIDERS: Emergency Provider Student in an Organized Health Care Education/Training Program
DX: F11.20 Opioid dependence, uncomplicated (principal)
CPT/HCPCS: 99282; 99283

== ENCOUNTER 2024-03-05 12:54 | Emergency (ER) | payer OTHER, SELFPAY ==
--- NOTE | 2024-03-05 13:06 | ED_ITS ---
HPI - General Adult General Chief complaint: General Medical Stated complaint: Methadone dose Time Seen by Provider: 03/05/24 13:14 Source: patient Mode of arrival: ambulatory Limitations: no limitations History of Present Illness ED Provider: Rod Cope NP HPI narrative: Patient is a 33-year-old male with history of opioid use disorder currently on methadone presenting to the emergency department stating that his methadone clinic, [facility] in [place], was closed when he went there at 7:00 a.m. today and he needs his dose. He states that he goes to the clinic for daily doses, is not given take-home dosing. Was seen in this emergency department on 03/03 for a dose and states he did not receive any doses yesterday. He denies any physical complaints at this time. MD complaint: methadone dependence Onset (ago): day(s) Treatments prior to arrival: none Related Data Home Medications ?Medication ?Instructions ?Recorded ?Confirmed methadone 10 mg/mL oral concentrate 50 mg PO DAILY 03/03/24 03/05/24 Previous Rx's ?Medication ?Instructions ?Recorded magnesium oxide 400 mg PO DAILY #30 tabs 03/08/23 potassium chloride 10 mEq 10 meq PO DAILY #30 tabs 03/08/23 tablet,extended release (K-Tab) spironolactone 50 mg tablet 50 mg PO DAILY #30 tabs 03/08/23 Allergies Allergy/AdvReac Type Severity Reaction Status Date / Time fish derived [fish] Allergy Anaphylaxis Verified 03/05/24 13:08 shellfish derived Allergy Anaphylaxis Verified 03/05/24 13:08 Review of Systems Review of Systems: As per HPI. Yes all other systems are reviewed and are negative Constitutional: Constitutional: Reports as per HPI [facility] Social History Social History Alcohol intake: current Alcohol intake frequency: 3 or more drinks per day Alcohol type: hard liquor Advance Directives: No Advance Directives Information Provided: Yes Physical Exam ED Vital Signs: Vital Signs - 24 hr 03/05/24 13:07 03/05/24 13:46 Temperature 98.2 F 98.2 F Pulse Rate 92 92 Respiratory Rate 18 18 Blood Pressure 125/69 125/69 Pulse Oximetry 99 99 Oxygen Delivery Method Room Air Room Air BMI result Body Mass Index 29.1 Vital signs have been reviewed and appear to be correct. Blood pressure normal. Heart rate normal. Respiratory rate normal. Temperature normal. Oxygen saturation normal. Const General: cooperative, healthy appearing and no acute distress Orientation/consciousness: oriented to person, oriented to place, oriented to time and patient oriented x3 Limitations: no limitations HENMT Head: Yes normocephalic and Yes atraumatic Ears: external ears normal General nose exam: Normal external nose present Face and sinus: Yes face symmetric Mouth: oropharynx normal and moist mucous membranes Throat: Yes uvula midline Eyes Pupils: Equal, round and reactive pupils present Neck Neck: Yes normal visual inspection and Yes supple Resp Effort & Inspection: normal respiratory effort and able to speak in complete sentences Auscultation: clear to auscultation bilaterally Cardio Rate: regular rate Rhythm: regular rhythm Heart sounds: S1 normal heart sound present and S2 normal heart sound present GI Palpation (GI): Soft to palpation and nontender Auscultation: normoactive bowel sounds General: Yes no CVA tenderness Back/Spine/Pelvis Back: no CVA tenderness Skin General skin exam: elasticity normal and turgor normal Neuro General: oriented to person, oriented to place, oriented to time, patient oriented x3, moves all extremities, no focal motor deficits and CN's II-XI intact bilaterally Cranial nerves: Yes Equal, round and reactive pupils present Cognition (Neuro): normal cognition Extrem General: Yes full ROM, Yes no pedal edema and Yes no calf tenderness Psych Mental Status: mental status grossly normal Affect: normal affect Thought process: Normal thought process present Course Course Course Narrative: This is a rapid medical exam performed by Rod Cope NP: Additional HPI, ROS, PE not included below will be deferred to primary provider. Patient states that he went to the [facility] methadone clinic today and it was closed at 7am. Seen here on 03/03 after he missed his dose and was medicated with 50mg. States he missed his dose yesterday. Plan: verify with methadone clinic Medications Administered Discontinued Medications Generic Name Dose Route Start Last Admin Trade Name Freq PRN Reason Stop Dose Admin Methadone HCl 50 mg 03/05/24 13:19 03/05/24 13:41 Methadone Hcl 20 Mg/2 Ml Oral.Conc PO 03/05/24 13:20 50 mg ONCE ONE Administration Medical Decision Making Medical Decision Making [facility] Narrative: Patient is a 33-year-old male with history of opioid use disorder currently on methadone presenting to the emergency department stating that his methadone clinic, [facility] in [place], was closed when he went there at 7:00 a.m. today and he needs his dose. DIANE Alfaro contacted patient's clinic who confirmed that patient's clinic was in fact closed today. Patient received 50mg at his clinic on 03/02, 50mg here on 03/03 and states he did not get dosed yesterday. Patient medicated with 50mg today. Advised to resume treatment at clinic tomorrow. Return with any new or concerning symptoms. Differential Diagnosis Differential Diagnoses: The differential diagnosis associated with the presentation includes methadone dependence, opioid use disorder Admission/Observation Consideration of admission/observation: Escalation of care including admission/observation considered Patient would have been admitted to the hospital had their work up had any findings where hospital admission was appropriate and their clinical presentation warranted hospital admission. External Record Review External record reviewed: Inpatient record, Office record and Outpatient record Prescription Management I considered prescription management with: Other Discharge Plan Discharge Clinical Impression: Methadone dependence Patient Disposition: Home, Self-Care Instructions: Opioid Use Disorder (ED) Additional Instructions: You presented to the emergency department today for methadone dosing. You were medicated with 50 mg by mouth today in the emergency department. Please follow- up with your normal methadone clinic tomorrow to continue your treatment. Return to the emergency department with any new or worsening symptoms. Prescriptions: No Action methadone 10 mg/mL Concentrate 50 mg PO DAILY magnesium oxide 400 mg magnesium tablet 400 mg PO DAILY Qty: 30 0RF potassium chloride [K-Tab] 10 mEq tablet extended release 10 meq PO DAILY Qty: 30 0RF spironolactone 50 mg tablet 50 mg PO DAILY Qty: 30 0RF Interventions: ED Discharge Assessment Last Done: 03/05/24 13:46 Discharge Date/Time: 03/05/24 13:47 Print Language: Andorran
[2024-03-05 13:07] VITALS: BP 125/69; PULSE 92; RESP 18; TEMP 36.8; O2SAT 99; BMI 29.1
--- NOTE | 2024-03-05 13:22 | HE.PHANOTE ---
RE: methadone Received last dose verification from [facility] 50mg on 03/02/24
[2024-03-05] MEDS: methADONE HCl 20 MG/2 ML ORAL.CONC 50 MG PO (13:41)
[2024-03-05 13:46] VITALS: BP 125/69; PULSE 92; RESP 18; TEMP 36.8; O2SAT 99
== END 2024-03-05 13:47 | disposition home or self-care (01) ==
LOC: HO.ED 13:41
PROVIDERS: Emergency Provider Student in an Organized Health Care Education/Training Program
DX: F11.20 Opioid dependence, uncomplicated (principal)
CPT/HCPCS: 99282; 99283

== ENCOUNTER 2024-10-04 10:34 | Emergency (ER) | payer OTHER, SELFPAY ==
[2024-10-04 10:50] VITALS: BP 147/77; PULSE 88; RESP 16; TEMP 37; O2SAT 97; BMI 36.7
--- NOTE | 2024-10-04 12:19 | ED.GENADULT ---
HPI - General Adult General Chief complaint: General Medical Stated complaint: medication Time Seen by Provider: 10/04/24 12:37 Source: patient, RN notes reviewed and old records reviewed Mode of arrival: ambulatory Limitations: no limitations History of Present Illness ED Provider: Allegra LOPEZ narrative: 34-year-old male with past medical history significant for substance abuse maintained on methadone presents for evaluation methadone dosing. Patient reports he is unable to get a ride to his methadone clinic this morning. He reports he takes 90 mg of methadone daily. He reports feeling nauseous, restless Denies any fevers, chills. No other complaints or concerns at time Related Data Home Medications ?Medication ?Instructions ?Recorded ?Confirmed methadone 10 mg/mL oral concentrate 50 mg PO DAILY 03/03/24 03/05/24 Previous Rx's ?Medication ?Instructions ?Recorded magnesium oxide 400 mg PO DAILY #30 tabs 03/08/23 potassium chloride 10 mEq 10 meq PO DAILY #30 tabs 03/08/23 tablet,extended release (K-Tab) spironolactone 50 mg tablet 50 mg PO DAILY #30 tabs 03/08/23 Allergies Allergy/AdvReac Type Severity Reaction Status Date / Time fish derived [fish] Allergy Anaphylaxis Verified 10/04/24 10:52 shellfish derived Allergy Anaphylaxis Verified 10/04/24 10:52 Review of Systems Constitutional: Constitutional: Denies body ache(s), Denies chills and Denies fever(s) Eyes: Eyes: Denies blurry vision ENT: Denies sore throat Cardiovascular: Cardiovascular: Denies chest pain Respiratory: Respiratory: Denies cough Gastrointestinal: Gastrointestinal: Denies abdominal pain, Reports nausea and Denies vomiting Psychiatric: Psychiatric: Reports anxiety PMFSH Social History Social History Alcohol intake: current Alcohol intake frequency: 3 or more drinks per day Alcohol type: hard liquor Advance Directives: No Advance Directives Information Provided: Yes Physical Exam ED Vital Signs: Vital Signs - 24 hr 10/04/24 10:50 Temperature 98.6 F Pulse Rate 88 Respiratory Rate 16 Blood Pressure 147/77 H Pulse Oximetry 97 Oxygen Delivery Method Room Air BMI result Body Mass Index 36.7 Const General: healthy appearing, comfortable, no acute distress, alert and awake Nutritional Appearance: well nourished Orientation/consciousness: patient oriented x3 HENMT Head: Yes normocephalic and Yes atraumatic Eyes Eyelids: Yes eyelids normal Conjunctivae: conjunctivae normal Sclerae: sclerae normal Corneas: corneas normal Pupils: Equal, round and reactive pupils present EOM: EOMs intact bilaterally Neck Neck: Yes full ROM Resp Effort & Inspection: normal respiratory effort, able to speak in complete sentences and not labored GI Inspection: No distended Palpation (GI): Soft to palpation, not firm, nontender, no guarding and not rigid Skin General skin exam: elasticity normal Neuro General: patient oriented x3 Cranial nerves: Yes Equal, round and reactive pupils present and Yes Bilaterally intact EOM present Cognition (Neuro): normal cognition Extrem Other: Moving all extremities well without any obvious deformities Course Reevaluation(s) Reevaluation #1: I change the patient's methadone dose from 50 mg to 40 mg as the pharmacy was unwilling to verify 50 mg dose without verification from his methadone clinic. Time: 13:23 Medical Decision Making Medical Decision Making MDM Narrative: 34-year-old male presents for evaluation of methadone dosing. We have tried for a couple of hours to attempt to confirm the patient's methadone dosing and last confirmed dose. We have been unable to confirm his dosing. The patient appears to be in mild alcohol withdrawal. I reviewed his previous methadone doses in the hospital and he was most recently given methadone 50 mg in February of this year. I will order a dose of methadone 40 mg for a 1 time dose Differential Diagnosis Differential Diagnoses: The differential diagnosis associated with the presentation includes Opiate abuse Substance abuse Medication noncompliance Methadone dosing Discharge Plan Discharge Clinical Impression: Opiate abuse, continuous Patient Disposition: Home, Self-Care Instructions: Opioid Use Disorder (ED) Additional Instructions: We are unable to confirm your methadone dosing. You were given methadone 40 mg in the ER today. Follow-up with your methadone clinic Prescriptions: No Action methadone 10 mg/mL Concentrate 50 mg PO DAILY magnesium oxide 400 mg magnesium tablet 400 mg PO DAILY Qty: 30 0RF potassium chloride [K-Tab] 10 mEq tablet extended release 10 meq PO DAILY Qty: 30 0RF spironolactone 50 mg tablet 50 mg PO DAILY Qty: 30 0RF Print Language: Guatemalan
--- NOTE | 2024-10-04 12:48 | PC.NURSE ---
Called Anamika @ 1248 @ phone number [phone] this nurse called three times no answer.
--- NOTE | 2024-10-04 12:54 | PC.NURSE ---
This nurse called [employer] phone number [employer] gave number to direct line [phone], this nurse called the phone number and went straight to voicemail, message left @ [phone]
--- NOTE | 2024-10-04 13:23 | PC.NURSE ---
Called pharmacy for update status on Med verification.Provider notified.
[2024-10-04] MEDS: methADONE HCl 20 MG/2 ML ORAL.CONC 40 MG PO (13:36)
[2024-10-04 13:59] VITALS: BP 147/77; PULSE 88; RESP 16; TEMP 37; O2SAT 97
--- NOTE | 2024-10-04 13:59 | PC.NURSE ---
Last dose letter given to pt with discharge instructions.
== END 2024-10-04 14:00 | disposition home or self-care (01) ==
PROVIDERS: Emergency Provider Emergency Medicine
DX: F11.20 Opioid dependence, uncomplicated (principal); F41.9 Anxiety disorder, unspecified
CPT/HCPCS: 99282; 99283

== ENCOUNTER 2024-10-15 10:24 | Emergency (ER) | payer OTHER, SELFPAY ==
[2024-10-15 10:28] VITALS: BP 151/92; PULSE 78; RESP 20; TEMP 36.8; O2SAT 98; BMI 34.0
--- NOTE | 2024-10-15 11:19 | ED_ITS ---
HPI - General Adult General Chief complaint: General Medical Stated complaint: Methadone dose Time Seen by Provider: 10/15/24 11:19 Source: patient Mode of arrival: ambulatory Limitations: no limitations History of Present Illness ED Provider: Catrachita Esteban PA-C HPI narrative: Patient is a 34 year old assigned male at with a history of opiate use disorder, on methadone, presenting to the emergency department today for his methadone dose. Patient states that he missed his appointment at his clinic and needs his methadone dose. Patient denies any dizziness, lightheadedness, abdom inal pain, nausea, vomiting, fever, chills, blurry vision, double vision, loss of vision, chest pain, difficulty breathing, shortness of breath, back pain, night sweats, pain with urination, increased urinary frequency, increased urinary urgency, blood in his urine or stool, syncope or a near syncopal episode, recent trauma or falls, bowel incontinence, bladder incontinence, or any other complaints at this time. Relieving factors: none Exacerbating factors: none Associated symptoms: denies other symptoms Treatments prior to arrival: none Related Data Home Medications ?Medication ?Instructions ?Recorded ?Confirmed methadone 10 mg/mL oral concentrate 90 mg PO DAILY 03/03/24 10/15/24 Previous Rx's ?Medication ?Instructions ?Recorded magnesium oxide 400 mg PO DAILY #30 tabs 03/08/23 potassium chloride 10 mEq 10 meq PO DAILY #30 tabs 03/08/23 tablet,extended release (K-Tab) spironolactone 50 mg tablet 50 mg PO DAILY #30 tabs 03/08/23 Allergies Allergy/AdvReac Type Severity Reaction Status Date / Time fish derived [fish] Allergy Anaphylaxis Verified 10/15/24 10:29 shellfish derived Allergy Anaphylaxis Verified 10/15/24 10:29 Review of Systems Constitutional: Constitutional: Reports no additional constitutional complaints, Denies chills, Denies fever(s) and Denies night sweats Eyes: Eyes: Reports no additional eye complaints, Denies blurry vision, Denies change in vision, Denies diplopia, Denies eye discharge, Denies loss of vision and Denies eye pain ENT: Denies dizziness Cardiovascular: Cardiovascular: Reports no additional cardiovascular complaints, Denies chest pain, Denies lightheadedness, Denies Loss of Consciousness and Denies dyspnea Respiratory: Respiratory: Reports no additional respiratory complaints and Denies dyspnea Gastrointestinal: Gastrointestinal: Reports no additional gastrointestinal complaints, Denies abdominal pain, Denies melena, Denies hematochezia, Denies change in bowel habits and Denies change in stool character Genitourinary: Genitourinary: Reports no additional male genitourinary complaints, Denies hematuria, Denies oliguria, Denies difficulty urinating, Denies dysuria, Denies urinary frequency, Denies urinary hesitancy, Denies urinary incontinence and Denies urinary urgency Musculoskeletal: Musculoskeletal: Reports no additional musculoskeletal c omplaints, Denies numbness and Denies tingling Neurologic: Denies dizziness, Denies loss of vision, Denies numbness and Denies tingling Psychiatric: Psychiatric: Reports no additional psychiatric complaints Endocrine: Endocrine: Reports no additional endocrine complaints Hematologic/Lymphatic: Hematologic/Lymphatic: Reports no additional hematologic/lymphatic complaints Allergic/Immunologic: Allergic/Immunologic: Reports no additional allergic/immunologic complaints PMFSH Past Medical History Attestation statement: The following information was validated with the patient. Source: old records reviewed and nursing notes reviewed Social History Social History Alcohol intake: current Alcohol intake frequency: 3 or more drinks per day Alcohol type: hard liquor Advance Directives: No Advance Directives Information Provided: Yes Physical Exam ED Vital Signs: Vital Signs - 24 hr 10/15/24 10:28 10/15/24 12:59 Temperature 98.3 F 98.3 F Pulse Rate 78 78 Respiratory Rate 20 20 Blood Pressure 151/92 H 151/92 H Pulse Oximetry 98 98 Oxygen Delivery Method Room Air Room Air BMI result Body Mass Index 34.0 Const General: cooperative, no acute distress, alert and awake Nutritional Appearance: well nourished Orientation/consciousness: patient oriented x3 Limitations: no limitations [facility] Head: Yes normal to inspection and Yes atraumatic Ears: hearing grossly normal bilaterally and external ears normal General nose exam: Normal external nose present, no nasal discharge noted and no epistaxis Face and sinus: Yes normal facial exam, No abrasion and No laceration Mouth: Normal oral and palatal mucosa present, no drooling and no muffled voice Eyes General: appearance normal, both eyes and all related structures Periorbital: periorbital findings normal Eyelids: Yes eyelids normal Conjunctivae: conjunctivae normal Pupils: Equal, round and reactive pupils present EOM: EOMs intact bilaterally Neck Neck: Yes normal visual inspection, Yes full ROM and Yes no lymphadenopathy Chest Chest palpation & inspection: normal inspection of the chest Resp Effort & Inspection: normal respiratory effort and able to speak in complete sentences GI Inspection: Yes normal to inspection Neuro General: patient oriented x3 and moves all extremities Cranial nerves: Yes Equal, round and reactive pupils present Cognition (Neuro): normal cognition Extrem General: Yes normal to inspection, Yes full ROM and Yes capillary refill normal Psych Appearance: grossly normal Mental Status: mental status grossly normal Affect: normal affect Attitude: cooperative Thought process: Normal thought process present Thought content: Normal thought content present Insight: Good insight present (Psych) Medications Administered Discontinued Medications Generic Name Dose Route Start Last Admin Trade Name Sonia PRN Reason Stop Dose Admin Methadone HCl 90 mg 10/15/24 11:35 10/15/24 12:20 Methadone Hcl 20 Mg/2 Ml Oral.Conc PO 10/15/24 11:36 90 mg ONCE ONE Administration Medical Decision Making Medical Decision Making MDM Narrative: Patient is a 34 year old assigned male at with a history of opiate use disorder, on methadone, presenting to the emergency department today for his methadone dose. Patient's physical exam was unremarkable. I explained my physical exam findings to the patient. I answered all questions asked by the patient. I stressed the importance of the patient taking his medication as directed (either prescribed or as the over the counter packaging recommends). I stressed the importance of the patient following up with his primary care provider. I stressed the importance of the patient returning to the emergency department immediately if he were to develop any dizziness, shortness of breath, difficulty breathing, chest pain, blurry vision, loss of vision, nausea, vomiting, abdominal pain, fever, chills, back pain, or any other complaints. Patient verbalized agreement and understanding with this treatment plan and discharge. Differential Diagnosis Differential Diagnoses: The differential diagnosis associated with the presentation includes Methadone dose Admission/Observation Consideration of admission/observation: Escalation of care including admission/observation considered Patient would have been admitted to the hospital had his clinical presentation w arranted hospital admission. Discharge Plan Discharge Clinical Impression: Methadone dependence Patient Disposition: Home, Self-Care Instructions: Opioid Use Disorder (ED) Additional Instructions: Follow up with your primary care provider. Return to the emergency department immediately if you develop any dizziness, shortness of breath, difficulty breathing, chest pain, blurry vision, loss of vision, nausea, vomiting, abdominal pain, fever, chills, back pain, or any other complaints. Prescriptions: No Action methadone 10 mg/mL Concentrate 90 mg PO DAILY magnesium oxide 400 mg magnesium tablet 400 mg PO DAILY Qty: 30 0RF potassium chloride [K-Tab] 10 mEq tablet extended release 10 meq PO DAILY Qty: 30 0RF spironolactone 50 mg tablet 50 mg PO DAILY Qty: 30 0RF Referrals: [facility] [place] Family Medicine [Provider Group] (Call to establish and follow up with a primary care provider. If you already have a primary care provider, please follow up with them.) [facility] [place] Primary Care, [facility] [Provider Group] (Call to establish and follow up with a primary care provider. If you already have a primary care provider, please follow up with them.) [facility] [place] Primary Care,[facility] [Provider Group] (Call to establish and follow up with a primary care provider. If you already have a primary care provider, please follow up with them.) Interventions: ED Discharge Assessment Last Done: 10/15/24 12:59 Discharge Date/Time: 10/15/24 13:00 Print Language: Latvian
--- NOTE | 2024-10-15 11:27 | PC.NURSE ---
last dose letter from [facility] faxed to pharmacy.
--- NOTE | 2024-10-15 11:30 | HE.PHANOTE ---
Phyllis Methadone Received the patient's last dose form from [facility]. Last dose was 90mg on 10/14/2024
[2024-10-15] MEDS: methADONE HCl 20 MG/2 ML ORAL.CONC 90 MG PO (12:20)
[2024-10-15 12:59] VITALS: BP 151/92; PULSE 78; RESP 20; TEMP 36.8; O2SAT 98
== END 2024-10-15 13:00 | disposition home or self-care (01) ==
PROVIDERS: Emergency Provider Emergency Medicine Emergency Medical Services
DX: F11.20 Opioid dependence, uncomplicated (principal)
CPT/HCPCS: 99282; 99283

== ENCOUNTER 2024-10-19 12:19 | Emergency (ER) | payer OTHER, SELFPAY ==
[2024-10-19 12:27] VITALS: BP 175/94; PULSE 85; RESP 16; TEMP 37; O2SAT 98
--- NOTE | 2024-10-19 12:28 | ED.GENADULT ---
HPI - General Adult General Stated complaint: medication Time Seen by Provider: 10/19/24 12:27 Source: patient Mode of arrival: ambulatory Limitations: no limitations History of Present Illness ED Provider: Stephanie Paez NP HPI narrative: Patient is a 34-year-old male who presents emergency department requesting assistance with methadone dosing. He was last dose in the emergency department yesterday 10/18/2024, his dosage was verified yesterday from [facility]; DIANE Del Rosario - 90 mg. He states that he was unable to get a ride to [facility] today for his dosing. He has lost his license recently, reports he had [employer] transportation set up he received a call at 09:30 this morning that the intermodal truck driver would be able to pick him up for 11:30 however this then made him late for his appointment at [facility] and states he was not able to get there in time. He has hopes to transition his methadone clinic to somewhere closer to him perhaps in [place] or [place]. He is going to make some calls to establish this transfer Related Data Home Medications ?Medication ?Instructions ?Recorded ?Confirmed methadone 10 mg/mL oral concentrate 90 mg PO DAILY 03/03/24 10/15/24 Previous Rx's ?Medication ?Instructions ?Recorded magnesium oxide 400 mg PO DAILY #30 tabs 03/08/23 potassium chloride 10 mEq 10 meq PO DAILY #30 tabs 03/08/23 tablet,extended release (K-Tab) spironolactone 50 mg tablet 50 mg PO DAILY #30 tabs 03/08/23 Allergies Allergy/AdvReac Type Severity Reaction Status Date / Time fish derived [fish] Allergy Anaphylaxis Verified 10/19/24 12:30 shellfish derived Allergy Anaphylaxis Verified 10/19/24 12:30 Review of Systems Review of Systems: Yes all other systems are reviewed and are negative PMFSH Past Medical History Attestation statement: The following information was validated with the patient. Source: old records reviewed Social History Social History Alcohol intake: current Alcohol intake frequency: 3 or more drinks per day Alcohol type: hard liquor Physical Exam ED Appearance: Alert.?Oriented to person, place and time. No acute distress.?Normal affect. Eyes: Pupils equal, round and reactive to light.? CVS: Heart sounds normal. Normal heart rate and rhythm.? Pulses normal.?? Respiratory: No respiratory distress.? Lung sounds clear to auscultation bilaterally?? Neuro: Moves all extremities spontaneously. Sensation intact bilaterally. No focal neuro deficits. Ambulates with normal steady gait. Medical Decision Making Medical Decision Making [facility] Narrative: Patient is a 34-year-old male with past medical history of opiate use disorder on methadone presenting to the emergency department requesting assistance with methadone dosing. As per HPI was dosed in this emergency department yesterday. He is without physical complaints at this time cervical is examination is benign. Patient received methadone 90 mg dosing in the emergency department today, we discussed the importance of following up consistently with his methadone clinic, she had [facility] [place] proved to be difficult for him to get to on a daily basis which he states as of lately it has been he has plans to transition his methadone clinic to somewhere that is closer to him. Differential Diagnosis Differential Diagnoses: The differential diagnosis associated with the presentation includes (Opiate use disorder, methadone dependence) External Record Review External record reviewed: Outpatient record Chronic Conditions Patient?s care impacted by: Other (See narrative above) Discharge Plan Discharge Clinical Impression: Methadone dependence Patient Disposition: Home, Self-Care Additional Instructions: As discussed, if transportation to [facility] has proven to be difficult for you even with the [employer] transportation you reported having recently established you should consider transitioning your care to a closer methadone clinic to where you are currently residing. Opiate use disorder You were seen in our Emergency Department today for treatment of opiate use disorder. You may have been dosed with medication for opiate use disorder (MOUD) in the form of suboxone or methadone. You may experience feeling some withdrawal symptoms and this is normal. The? dose in the Emergency Department is a starting dose and meant to be titrated up once you follow up with a clinic. Please do not feel discouraged, it is a process. The nurse has reviewed with you where to follow up and what information to bring with you, to continue treatment. You also may have been given naloxone (narcan) to take home with you. This medication is used to potentially treat opiate overdose. If you decide you want to stop or cut down on how much you?re using, you can call or walk into our outpatient Addiction Treatment office: [facility] (M-F 9am-5p) [address] [place] [address], [phone] You may have been provided with safer injection?items, please take time to take care of YOU and your health. Use new supplies whenever possible to lessen the chances of infections and other illnesses.? ?If you need more supplies, please go [facility],? [address], [place] you can call or text to coordinate delivery of safer supplies. You were also provided a list of several treatment providers in the area.? If you experience any worsening symptoms you cannot control please return to the ED or call 911. Please follow up at your next appointment. Things to look out for are fevers, chest pain, shortness of breath, severe pain, dizziness, fainting or any other concerns. Prescriptions: No Action methadone 10 mg/mL Concentrate 90 mg PO DAILY magnesium oxide 400 mg magnesium tablet 400 mg PO DAILY Qty: 30 0RF potassium chloride [K-Tab] 10 mEq tablet extended release 10 meq PO DAILY Qty: 30 0RF spironolactone 50 mg tablet 50 mg PO DAILY Qty: 30 0RF Print Language: Belarusian
--- NOTE | 2024-10-19 12:43 | PC.NURSE ---
Last dose letter faxed to pharmacy.
--- NOTE | 2024-10-19 12:56 | HE.PHANOTE ---
RE METHADONE VERIFICATION LAST DOSE METHADONE 90 MG GIVEN 10/17/24 @ [facility]
[2024-10-19] MEDS: methADONE HCl 20 MG/2 ML ORAL.CONC 90 MG PO (14:06)
[2024-10-19 14:17] VITALS: BP 175/94; PULSE 85; RESP 16; TEMP 37; O2SAT 98
== END 2024-10-19 14:18 | disposition home or self-care (01) ==
PROVIDERS: Emergency Provider Emergency Medicine
DX: F11.20 Opioid dependence, uncomplicated (principal); Z79.899 Other long term (current) drug therapy; Z71.51 Drug abuse counseling and surveillance of drug abuser
CPT/HCPCS: 99282; 99283

== ENCOUNTER 2024-11-05 11:32 | Emergency (ER) | payer OTHER, SELFPAY ==
[2024-11-05 11:50] VITALS: BP 141/92; PULSE 102; RESP 18; TEMP 36.4; O2SAT 97; BMI 31.6
--- NOTE | 2024-11-05 11:51 | ED_ITS ---
HPI - General Adult General Chief complaint: General Medical Stated complaint: medication Time Seen by Provider: 11/05/24 11:57 Source: patient Mode of arrival: ambulatory Limitations: no limitations History of Present Illness ED Provider: Catrachita Esteban PA-C HPI narrative: Patient is a 34 year old assigned male at with a history of opiate use disorder on 90mg of Methadone daily presenting to the emergency department today requesting his Methadone dose. Patient states that his transportation again bailed on him today, making him miss the clinic. Patient denies any dizziness, lightheadedness, abdominal pain, nausea, vomiting, fever, chills, blurry vision, double vision, loss of vision, chest pain, difficulty breathing, shortness of breath, back pain, night sweats, pain with urination, increased urinary frequency, increased urinary urgency, blood in his urine or stool, syncope or a near syncopal episode, recent trauma or falls, bowel incontinence, bladder incontinence, or any other complaints at this time. Relieving factors: none Exacerbating factors: none Associated symptoms: denies other symptoms Treatments prior to arrival: none Related Data Home Medications ?Medication ?Instructions ?Recorded ?Confirmed methadone 10 mg/mL oral concentrate 90 mg PO DAILY 03/03/24 11/05/24 Previous Rx's ?Medication ?Instructions ?Recorded magnesium oxide 400 mg PO DAILY #30 tabs 03/08/23 potassium chloride 10 mEq 10 meq PO DAILY #30 tabs 03/08/23 tablet,extended release (K-Tab) spironolactone 50 mg tablet 50 mg PO DAILY #30 tabs 03/08/23 Allergies Allergy/AdvReac Type Severity Reaction Status Date / Time fish derived [fish] Allergy Anaphylaxis Verified 11/05/24 11:52 shellfish derived Allergy Anaphylaxis Verified 11/05/24 11:52 Review of Systems Constitutional: Constitutional: Reports no additional constitutional complaints, Denies chills, Denies fever(s) and Denies night sweats Eyes: Eyes: Reports no additional eye complaints, Denies blurry vision, Denies change in vision, Denies diplopia, Denies eye discharge, Denies loss of vision and Denies eye pain ENT: Denies dizziness Cardiovascular: Cardiovascular: Reports no additional cardiovascular complaints, Denies chest pain, Denies lightheadedness, Denies Loss of Consciousness and Denies dyspnea Respiratory: Respiratory: Reports no additional respiratory complaints and Denies dyspnea Gastrointestinal: Gastrointestinal: Reports no additional gastrointestinal complaints, Denies abdominal pain, Denies melena, Denies hematochezia, Denies change in bowel habits and Denies change in stool character Genitourinary: Genitourinary: Reports no additional male genitourinary complaints, Denies hematuria, Denies oliguria, Denies difficulty urinating, Denies dysuria, Denies urinary frequency, Denies urinary hesitancy, Denies urinary incontinence and Denies urinary urgency Musculoskeletal: Musculoskeletal: Reports no additional musculoskeletal complaints, Denies numbness and Denies tingling Neurologic: Denies dizziness, Denies loss of vision, Denies numbness and Denies tingling Psychiatric: Psychiatric: Reports no additional psychiatric complaints Endocrine: Endocrine: Reports no additional endocrine complaints Hematologic/Lymphatic: Hematologic/Lymphatic: Reports no additional hematologic/lymphatic complaints Allergic/Immunologic: Allergic/Immunologic: Reports no additional allergic/immunologic complaints [facility] Past Medical History Attestation statement: The following information was validated with the patient. Source: old records reviewed and nursing notes reviewed Social History Social History Alcohol intake: current Alcohol intake frequency: 3 or more drinks per day Alcohol type: hard liquor Advance Directives: No Advance Directives Information Provided: Yes Do you have a plan to hurt others: No Plan Physical Exam ED Vital Signs: Vital Signs - 24 hr 11/05/24 11:50 Temperature 97.6 F Pulse Rate 102 H Respiratory Rate 18 Blood Pressure 141/92 H Pulse Oximetry 97 Oxygen Delivery Method Room Air BMI result Body Mass Index 31.6 Const General: cooperative, no acute distress, alert and awake Nutritional Appearance: well nourished Orientation/consciousness: patient oriented x3 Limitations: no limitations [facility] Head: Yes normal to inspection and Yes atraumatic Ears: hearing grossly normal bilaterally and external ears normal General nose exam: Normal external nose present, no nasal discharge noted and no epistaxis Face and sinus: Yes normal facial exam, No abrasion and No laceration Mouth: Normal oral and palatal mucosa present, no drooling and no muffled voice Eyes General: appearance normal, both eyes and all related structures Periorbital: periorbital findings normal Eyelids: Yes eyelids normal Conjunctivae: conjunctivae normal Pupils: Equal, round and reactive pupils present EOM: EOMs intact bilaterally Neck Neck: Yes normal visual inspection, Yes full ROM and Yes no lymphadenopathy Chest Chest palpation & inspection: normal inspection of the chest Resp Effort & Inspection: normal respiratory effort and able to speak in complete sentences GI Inspection: Yes normal to inspection Neuro General: patient oriented x3 and moves all extremities Cranial nerves: Yes Equal, round and reactive pupils present Cognition (Neuro): normal cognition Extrem General: Yes normal to inspection, Yes full ROM and Yes capillary refill normal Psych Appearance: grossly normal Mental Status: mental status grossly normal Affect: normal affect Attitude: cooperative Thought process: Normal thought process present Thought content: Normal thought content present Insight: Good insight present (Psych) Course Course Course Narrative: RME performed by Catrachita Esteban PA-C. Patient is a 34 year old assigned male at presenting to the emergency department for his methadone dose. Patient states that he is on 90mg of methadone from [facility] and is consistently having transportation issues causing him to have to come here to get dosed. Detailed physical exam and review of systems are deferred to the primary education professor. Patient placed back in the waiting room pending room availability. Medical Decision Making Medical Decision Making MDM Narrative: Patient is a 34 year old assigned male at with a history of opiate use disorder on 90mg of Methadone daily presenting to the emergency department today requesting his Methadone dose. Patient's physical exam was unremarkable. I explained my physical exam findings to the patient. I answered all questions asked by the patient. Patient received his methadone dose. I stressed the importance of the patient taking his medication as directed (either prescribed or as the over the counter packaging recommends). I stressed the importance of the patient following up with his primary care provider. I stressed the importance of the patient returning to the emergency department immediately if he were to develop any dizziness, shortness of breath, difficulty breathing, chest pain, blurry vision, loss of vision, nausea, vomiting, abdominal pain, fever, chills, back pain, or any other complaints. Patient verbalized agreement and understanding with this treatment plan and discharge. Differential Diagnosis Differential Diagnoses: The differential diagnosis associated with the presentation includes Methadone dose History of opiate use / abuse Admission/Observation Consideration of admission/observation: Escalation of care including admission/observation considered Patient would have been admitted to the hospital had his clinical presentation warranted hospital admission. Discharge Plan Discharge Clinical Impression: Methadone use Patient Disposition: Home, Self-Care Instructions: Opioid Use Disorder (ED) Additional Instructions: Follow up with your primary care provider. Return to the emergency department immediately if your symptoms if you develop any dizziness, shortness of breath, difficulty breathing, chest pain, blurry vision, loss of vision, nausea, vomiting, abdominal pain, fever, chills, back pain, or any other complaints. Prescriptions: No Action methadone 10 mg/mL Concentrate 90 mg PO DAILY magnesium oxide 400 mg magnesium tablet 400 mg PO DAILY Qty: 30 0RF potassium chloride [K-Tab] 10 mEq tablet extended release 10 meq PO DAILY Qty: 30 0RF spironolactone 50 mg tablet 50 mg PO DAILY Qty: 30 0RF Referrals: [facility] [place] Family Medicine [Provider Group] (Call to establish and follow up with a primary care provider. If you already have a primary care provider, please follow up with them.) [facility] [place] [facility] [Provider Group] (Call to establish and follow up with a primary care provider. If you already have a primary care provider, please follow up with them.) [facility] [facility] [Provider Group] (Call to establish and follow up with a primary care provider. If you already have a primary care provider, please follow up with them.) [facility] [place] [facility] [Provider Group] (Call to establish and follow up with a primary care provider. If you already have a primary care provider, please follow up with them.) Print Language: Croatian
--- NOTE | 2024-11-05 12:20 | HE.PHANOTE ---
Methadone Pt last received 90mg on 11/03/24 from [facility], with 1 take home bottle containing 90mg, that he took yesterday.
[2024-11-05] MEDS: methADONE HCl 20 MG/2 ML ORAL.CONC 90 MG PO (12:30)
[2024-11-05 12:33] VITALS: BP 141/92; PULSE 102; RESP 18; TEMP 36.4; O2SAT 97
--- OUTSIDE RECORDS SUMMARY | 2024-11-05 17:02 | XMS_ITS | Clinical Summary ---
Author Organization [facility] Address [address] [place] [address] Care Team Providers Care Tire Recapping Machine Operator Name Role Phone Patient, Has No Pcp Or Ref Primary Care Provider Unavailable Allergies Active Allergy Reactions Criticality Noted Date Comments Fish Containing Products Unknown 02/21/2023 Shellfish Derived Unknown 02/21/2023 Medications sertraline (ZOLOFT) 25 mg tablet Take 50 mg by mouth once a day. Active nicotine polacrilex (NICORETTE) [address] 2 mg between cheek and gums as needed for nicotine cravings. Active OXcarbazepine (TRILEPTAL) 300 mg tablet Take 300 mg by mouth 2 times a day. Active LORazepam (ATIVAN) 1 mg tablet Take 1 mg by mouth 2 (two) times a day. Active LORazepam (ATIVAN) 1 mg tablet Take 1 mg by mouth as needed for anxiety. Active fluticasone propionate (FLONASE) 50 mcg/actuation nasal spray Administer 1 spray into each nostril 2 times a day. 16 g 2 4 Active thiamine mononitrate (VITAMIN B1) 100 mg tablet Take 1 tablet (100 mg total) by mouth once a day. 30 tablet 2 4 Active rifAXIMin (XIFAXAN) 550 mg tablet Take 1 tablet (550 mg total) by mouth every 12 hours. 60 tablet 4 Active nicotine (NICODERM CQ) 21 mg/[address] 1 patch on the skin once a day. 28 patch 1 4 Active topiramate (TOPAMAX) 50 mg tablet Take 1 tablet (50 mg total) by mouth every night. 30 tablet 4 Active multivitamin (THERAGRAN) tablet Take 1 tablet by mouth once a day. 30 tablet 4 Active lactulose 10 gram/15 mL solution Take 45 mL (30 g total) by mouth 3 times a day. 1000 mL 11 4 Active folic acid (FOLVITE) 1 mg tablet Take 1 tablet (1 mg total) by mouth once a day. 30 tablet 4 Active LORazepam (ATIVAN) 0.5 mg tablet Take 1 tablet (0.5 mg total) by mouth 2 times a day as needed for anxiety. 10 tablet 4 Active Active Problems Problem Noted Date Diagnosed Date Alcoholic cirrhosis of liver without ascites (CM S/HCC) 02/12/2024 Cigarette nicotine dependence without complicati on 02/12/2024 Normochromic normocytic anemia 02/12/2024 Metabolic encephalopathy 02/01/2024 Class 1 obesity 01/24/2024 EDINSON (generalized anxiety disorder) 01/24/2024 Elevated LFTs 01/24/2024 Transient alteration of awareness 01/24/2024 History of seizures 01/24/2024 White matter low attenuation on CT of brain 01/08 Alcohol abuse with withdrawal 01/23/2024 H/O: substance abuse (CMS/HCC) 11/27/2015 Overview (01/24/2024): Alcohol, Heroin, Xanax and Ativan from streets. Received records from [facility] in [place] where he was admitted for detox 07/2015: Court ordered treatment, had felony charges for drugs. Reportedly he used suboxone in the past but was selling mostly?. He was treated in detox with protocol( also including Hydroxyzine, clonidine, keppra prophylaxis, Remeron, Trazodone prn, Subutex) Social History Tobacco Use Types Packs/Day Years Used Date Smoking Tobacco: Every Day Cigarettes Smokeless Tobacco: Never Tobacco Cessation:Ready to Q uit: Not Asked; Counseling Given: Not Answered Alcohol Use Standard Drinks/Week Comments Yes 0 (1 standard drink = 0.6 oz pur e alcohol) 1 pint day Sex and Gender Information Value Date Recorded Sex Assigned at Male 01/15/2024 4:08 PM EDT Legal Sex Male 12:23 AM EDT Gender Identity Male 01/27/2024 1:43 PM EDT Sexual Orientation Straight 01/27/2024 1: 43 PM EDT Last Filed Vital Signs Vital Sign Reading Time Taken Comments Blood Pressure 120/73 05/23/2024 6:39 PM EDT Pulse 71 05/23/2024 6:39 PM EDT Temperature 36.9 ??C (98.4 ??F) 05/23/2024 2:10 PM ED T Respiratory Rate 18 05/23/2024 6:39 PM EDT Oxygen Saturation 97% 05/23/2024 6:39 PM EDT Inhaled Oxygen Concentration - - Weight 89.2 kg (196 lb 10.4 oz) 01/24/2024 9:45 PM EDT Height 165.1 cm (5' 5 ) 01/24/2024 9:31 PM EDT Body Mass Index 32.72 01/24/2024 9:31 PM EDT Plan of Treatment Health Maintenance Due Date Last Done Comments HIV Screening 1991 Hepatitis C Screening 1991 Pneumococcal Vaccine: Pediat karlene (0-5 Years) and At-Risk Patients (6-64 Years) (1 of 2 - PCV) 1997 Varicella Vaccines (1 of 2 - 13+ 2-dose series) 2004 Hepatitis B Vaccines (3 of 3 - 3-dose series) 08/06/2004 06/11/2004, 04/16/2003 DTaP,Tdap,and Td Vaccines (6 - Td or Tdap) 06/01/2017 06/01/2007, 04/16/2003, 06/03/1996, Additional history exists COVID-19 Vaccine (2 - 2023-2 5 season) 2024 03/11/2021 Influenza Vaccine (#1) 2024 , 06/24/2020, 07/10/2019, Additional history exists Alcohol/Substance Use Screening 10/10/2024 Social Drivers of Health Melonie ual Screening 10/10/2024 RSV Vaccine (60+ years old a nd patients) (1 - 1-dose 75+ series) 2066 Abdominal Aortic Aneurysm (A AA) Screening Completed 02/02/2024, 12/16/2023, 12/16/2023 Procedures * Due to [place] [employer] law, this organization might not be sharing negative HIV tests. Procedure Name Priority Date/Time Associated Diagnosis Comments CT ABDOMEN PELVIS WO CONTRAST Routine 02/02/2024 10:26 AM EDT from Last 3 Months or Most Recently Relevant to Health Maintenance Results * Due to [place] [employer] law, this organization might not be sharing negative HIV tests. * CT Abdomen Pelvis without Contrast (02/02/2024 10:26 AM EDT) Anatomical Region Laterality Modality Body Computed Tomogra phy 02/02/2024 11:3 1 AM EDT Impressions 02/02/2024 12:02 PM EDT 1. ??Due to contrast in the collecting systems on this study from the prior exam, kidney stones cannot be excluded. No hydronephrosis. No hydroureter. 2. ??Cirrhotic nodular liver with splenic enlargement. If this radiology report contains a blank impression section, it is an incomplete radiology report. ??Please contact the interpreting radiologist or applicable radiology division as soon as possible to obtain the completed interpretation. ? Workstation ID: [id number] Up-to-date CT equipment and radiation dose reduction techniques were employed. CTDIvol: 15.3 mGy. DLP: 811 mGy-cm. Narrative 02/02/2024 12:02 PM EDT EXAMINATION: CT ABDOMEN PELVIS WO CONTRAST INDICATION: Flank pain, kidney stone suspected. TECHNIQUE: Images of the abdomen and pelvis were obtained without intravenous contrast, without oral contrast. Coronal and sagittal reformats were generated. COMPARISON: 01/15/2024 ultrasound, MRI brain done earlier this morning. ?? FINDINGS: Lack of intravenous contrast decreases sensitivity for the detection of focal lesions and vascular pathology. LOWER THORAX: Left-sided pleural effusion, cardiac size mildly enlarged. Septal thickening at the lung bases. HEPATOBILIARY: Diffuse steatotic liver with nodular contour. Normal gallbladder. No bile duct dilatation. SPLEEN: 13.4 cm enlarged spleen. PANCREAS: Normal appearance of the pancreas. ADRENAL GLANDS: No adrenal nodules. KIDNEYS/URETERS: There is contrast seen within both kidneys from the recent study. There is contrast within the bladder. There is no ureteric dilatation seen along the course of the left ureter. The right ureter demonstrates normal caliber to the bladder. GI TRACT: Bowel loops are not thick-walled or dilated. No evidence of bowel obstruction. PERITONEUM/RETROPERITONEUM: No ascites or free air. LYMPH NODES: No lymphadenopathy. VESSELS: Atherosclerotic changes are seen within the infrarenal aorta. No aneurysm. PELVIC ORGANS/BLADDER: Urinary bladder is unremarkable. BONES AND SOFT TISSUES: Normal bone mineral density. Resulting Agency Comment [id number] Procedure Note Maru Eubanks MD - 02/02/2024 EXAMINATION: CT ABDOMEN PELVIS WO CONTRAST INDICATION: Flank pain, kidney stone suspected. TECHNIQUE: Images of the abdomen and pelvis were obtained withoutintravenous contrast, without oral contrast. Coronal and sagittalreformats were generated. COMPARISON: 01/15/2024 ultrasound, MRI brain done earlier this morning. FINDINGS: Lack of intravenous contrast decreases sensitivity for thedetection of focal lesions and vascular pathology. LOWER THORAX: Left-sided pleural effusion, cardiac size mildly enlarged.Septal thickening at the lung bases. HEPATOBILIARY: Diffuse steatotic liver with nodular contour. Normalgallbladder. No bile duct dilatation. SPLEEN: 13.4 cm enlarged spleen. PANCREAS: Normal appearance of the pancreas. ADRENAL GLANDS: No adrenal nodules. KIDNEYS/URETERS: There is contrast seen within both kidneys from therecent study. There is contrast within the bladder. There is no uretericdilatation seen along the course of the left ureter. The right ureterdemonstrates normal caliber to the bladder. GI TRACT: Bowel loops are not thick-walled or dilated. No evidence ofbowel obstruction. PERITONEUM/RETROPERITONEUM: No ascites or free air. LYMPH NODES: No lymphadenopathy. VESSELS: Atherosclerotic changes are seen within the infrarenal aorta. Noaneurysm. PELVIC ORGANS/BLADDER: Urinary bladder is unremarkable. BONES AND SOFT TISSUES: Normal bone mineral density. IMPRESSION: 1. Due to contrast in the collecting systems on this study from the priorexam, kidney stones cannot be excluded. No hydronephrosis. Nohydroureter. 2. Cirrhotic nodular liver with splenic enlargement. If this radiology report contains a blank impression section, it is anincomplete radiology report. Please contact the interpreting radiologistor applicable radiology division as soon as possible to obtain thecompleted interpretation. Workstation ID: [id number] Up-to-date CT equipment and radiation dose reduction techniques wereemployed. CTDIvol: 15.3 mGy. DLP: 811 mGy-cm. Elizabeth Vizcaino MD IMG CT PROCEDURES Final Result from Last 3 Months or Most Recently Relevant to Health Maintenance Insurance [facility] MEDICAID Advance Directives Documents on File Type Date Recorded Patient Kettle Coordinator Expl anation Health Care Proxy 02/08/2024 5:53 PM 2023 * Full Code (Latest Code Status on File) Date Activated Date Inactivated Comments 01/23/2024 5:59 PM 02/16/2024 7:48 PM Healthcare Agents on File Name Relationship Healthcare Agent Relationshi p Communication Renyabel Nicholas Mother Health Care Agent Care Teams Tire Recapping Machine Operator Relationship Specialty Start Date End Date Patient, Has No Pcp Or Ref DO NOT EDIT THIS RECORD VIA PROVIDER ON THE FLY PCP - General Product Development Assistant 02/21/23
--- OUTSIDE RECORDS SUMMARY | 2024-11-05 17:02 | XMS_ITS | Clinical Summary ---
Author Organization [facility] Address [address] [place] [address] Care Team Providers Care Agricultural Education Professor Name Role Phone Emelia Ahn WORKERS COMPENSATION CLAIMS SUPERVISOR Primary Care Provider [phone] Source Comments PLEASE NOTE, if this patient is a minor, it may be UNLAWFUL to discuss sensitive information that is contained in these records (such as FAMILY PLANNING, MENTAL HEALTH or SUBSTANCE ABUSE) with the minor patient's parent or other person without the patient's specific authorization.[facility] Allergies No known active allergies Medications sertraline (ZOLOFT) 50 mg tabletIndication s:Depression with anxiety Take 1 Tab by mouth once daily. Start with Half tab daily for 1 week and then take 1 tab daily from 2nd week 30 Tab 0 11/12/2015 Active ibuprofen 800 mg tablet Take 1 Tab by mouth 3 (three) times daily as needed for pain 12 Tab 08/02/2019 Active Active Problems Problem Noted Date Diagnosed Date Congenital spondylolysis of lumbosacral region 0 12/03/2015 Overview (12/03/2015): Dx as noted in [facility] records; Reportedly followed [facility] 10/23/08. H/O: substance abuse ([facility]) 11/27/2015 Overview (11/27/2015): Alcohol, Heroin, Xanax and Ativan from streets. Received records from [facility] in [place] where he was admitted for detox 07/2015: Court ordered treatment, had felony charges for drugs. Reportedly he used suboxone in the past but was selling mostly?. He was treated in detox with protocol( also including Hydroxyzine, clonidine, keppra prophylaxis, Remeron, Trazodone prn, Subutex) Depression with anxiety 11/08/2015 Overview (12/03/2015): Inconsistent History. Says that he is now Following with at [facility], [facility]. He brought a letter from his Clinical supervisor assembling at [facility] suggesting that he will benefit from Pharmacotherapy. Per [facility] records prior to 2012, he was on Buspar, Trazodone, Effexor, Clonidine, Ativan. Smoking 11/08/2015 Immunizations Name Administration Dates Next Due DTAP (DAPTACEL),5 PERTUSSIS ANTIGENS ,08/05/1992,1991,08/21 HEP B, PED/ADOL 06/11/2004,04/16/2003 Hib (PRP-OMP) 1991,1991 History Of Varicella 06/09/1993 IPV 12/05/1996, 6,1991,08/21 MENINGOCOCCAL MPSV4 06/01/2007 MMR (MMR II/Priorix) 12/05/1996,05/23/1996 TDAP 06/01/2007 Td(adult),2 Lf tetanus toxoid,preservative free 04/16/2003 Family History Relation Name Status Comments Father Alive Mother Alive Social History Tobacco Use Types Packs/Day Years Used Date Smoking Tobacco: Some Days Cigarettes Tobacco Cessation:Ready to Q uit: Yes; Counseling Given: Yes Comments:2 cig/day Alcohol Use Standard Drinks/Week Comments Yes 0 (1 standard drink = 0.6 oz pur e alcohol) once a month, 1-2 beers Social Connections Answer Date Recorded Social Connections and Isolation 0 2019 Financial Resource Strain Answer Date R ecorded Financial Resource Strain 0 2018 Stress Answer Date Recorded Stress 0 2019 Physical Activity Answer Date Recorded Physical Activity 0 2019 Food Insecurity Answer Date Recorded Food 0 2019 Transportation Needs Answer Date Record ed Transportation 0 2019 Housing Stability Answer Date Recorded Housing 0 2019 Safety and Environment Answer Date Saman rded Safety 0 2019 Utilities Answer Date Recorded Utilities 0 2019 Employment Answer Date Recorded Employment 0 2019 Sex and Gender Information Value Date Recorded Sex Assigned at Not on file Legal Sex Male 8:23 AM PST Gender Identity Not on file Sexual Orientation Not on file Last Filed Vital Signs Vital Sign Reading Time Taken Comments Blood Pressure 114/76 11/08/2015 2:01 PM EST Pulse 80 11/08/2015 2:01 PM EST Temperature 36.9 ??C (98.4 ??F) 11/08/2015 2:01 PM ES T Respiratory Rate 14 11/08/2015 2:01 PM EST Oxygen Saturation - - Inhaled Oxygen Concentration - - Weight 68.5 kg (151 lb 1.6 oz) 11/08/2015 2:01 P M EST Height 160 cm (5' 3 ) 11/08/2015 2:01 PM EST Body Mass Index 26.77 11/08/2015 2:01 PM EST Plan of Treatment Not on file Insurance BLUE CROSS/ [place] Member Subscriber Plan / Payer (Ef fective 2015-Present) Name:LUCIA RUSSELL Relation to Subscriber:Self Name:RussellLucia Payer ID:[id number] Type:Indemnity Address: [facility] [id number] MEDICAID DENTAL [facility] Care Teams Agricultural Education Professor Relationship Specialty Start Date End Date Emelia Ahn FNP [address] [place] [id number] PCP - General 12/05/18
--- OUTSIDE RECORDS SUMMARY | 2024-11-05 17:02 | XMS_ITS | Referral Summary ---
Author Organization [facility] Address [address] [place] [address] Care Team Providers Care Export Coordinator Name Role Phone Patient, Has No Pcp [...] and Ativan from streets. Received records from [facility] in [place] where he was admitted for detox 07/2015: [...] 01/24/2024 9:31 PM EDT Plan of Treatment Not on file Procedures * Due to [place] [employer] law, this organization might not be sharing negative HIV tests. Procedure Name Priority Date/Time Associated Diagnosis Comments CT ABDOMEN PELVIS WO CONTRAST Routine 02/02/2024 10:26 AM EDT from Last 3 Months or Most Recently Relevant to Health Maintenance Results * Due to [place] [employer] law, this organization might not be [...] obtain the completed interpretation. ? Workstation ID: [id number] Up-to-date CT equipment and radiation dose reduction [...] Normal bone mineral density. Resulting Agency Comment [id number] Procedure Note Maru Eubanks MD - 02/02/2024 [...] possible to obtain thecompleted interpretation. Workstation ID: [id number] Up-to-date CT equipment and radiation dose reduction techniques wereemployed. CTDIvol: 15.3 mGy. DLP: 811 mGy-cm. Elizabeth Vizcaino MD IM CT PROCEDURES Final Result from Last 3 Months or Most Recently Relevant to Health Maintenance Insurance [facility] MEDICAID Advance Directives Documents on File Type Date Recorded Patient Alligator Trapper Expl anation Health Care Proxy 02/08/2024 5:53 PM 2023 * Full Code (Latest Code Status on File) Date Activated Date Inactivated Comments 01/23/2024 5:59 PM 02/16/2024 7:48 PM Healthcare Agents on File Name Relationship Healthcare Agent Relationshi p Communication [facility] Health Care Agent Care Teams Export Coordinator Relationship Specialty Start Date End Date Patient, Has No Pcp Or Ref DO NOT EDIT THIS RECORD VIA PROVIDER ON THE FLY PCP - General [place] 02/21/23
--- OUTSIDE RECORDS SUMMARY | 2024-11-05 17:02 | XMS_ITS | Clinical Summary ---
Author Organization [facility] it Address [address] [place] [address] Care Team Providers Care Tank Cooper Name Role Phone Kim Lemus MD Primary Care Provider [phone] Surgical History Surgery Date Site/Laterality Comments WISDOM TOOTH EXTRACTION PROCEDURE: HISTORICAL WISDOM TEETH EXTRACTION Medical History Medical History Date Comments Pneumonia DX:Pneumonia; CO MMENT: 2006 Family History Medical History Relation Name Comments Lung cancer Paternal Grandmother Other cancer Paternal Grandmother LIVER Relation Name Status Comments Brother 1 Alive 10/11 NOMI 1981 Brother 2 Alive 10/11 CHRISTOPHER 1981 Brother 3 Alive 10/11 JONA 1986 Father Alive 1960 Mother Alive 1964 Paternal Grandmother Social History Tobacco Use Types Packs/Day Years Used Date Smoking Tobacco: Every Day Cigarettes Smokeless Tobacco: Never Alcohol Use Standard Drinks/Week Comments Not Asked 0 (1 standard drink = 0.6 oz pur e alcohol) Sex and Gender Information Value Date Recorded Sex Assigned at Not on file Gender Identity Not on file Sexual Orientation Not on file Obstetrics History Plan of Treatment Health Maintenance Due Date Last Done Comments Pneumococcal Vaccine: Pediatrics (0 to 5 Years) and At-Risk Patients (6 to 64 Years) (1 of 2 - PCV) 1997 DTaP,Tdap,and Td Vaccines (6 - Td or Tdap) 06/01/2017 06/01/2007, 06/03/1996, 08/05/1992, Additional history exists Depression Screening 09/08/2022 HIV Screening 09/08/2022 Hepatitis C Screening 09/08/2022 Social Influencers of Health Screening 09/08/2022 COVID-19 Vaccine ( season) 2024 Influenza Vaccine (#1) 2024 HIB Vaccines Aged Out 1991, 1991 No lo nger eligible based on patient's age to complete this topic IPV Vaccines Completed 12/05/1996, 05/11, 1991, Additional history exists MMR Vaccines Completed 12/05/1996, 05/23/1996 Hepatitis B Vaccines Completed 06/11/2004, 04/16/20 03 Meningococcal ACWY Vaccine Completed 06/01/2007 HPV Vaccines Aged Out No longer eligi ble based on patient's age to complete this topic Hepatitis A Vaccines Aged Out No long er eligible based on patient's age to complete this topic RSV Immunization Patients Under 20 months Aged Out No longer eligible based on patient's age to complete this topic Varicella Vaccines Aged Out No longer eligible based on patient's age to complete this topic Care Teams Tank Cooper Relationship Specialty Start Date End Date Kim Lemus MD [address] [place] [address] SONU Soni PCP - General Internal Medicine 05/11/19
== END 2024-11-05 12:34 | disposition home or self-care (01) ==
PROVIDERS: Emergency Provider Emergency Medicine
DX: F11.20 Opioid dependence, uncomplicated (principal)
CPT/HCPCS: 99282; 99283

== ENCOUNTER 2024-11-16 11:38 | Emergency (ER) | payer OTHER, SELFPAY ==
[2024-11-16 11:42] VITALS: BP 144/76; PULSE 76; RESP 19; TEMP 36.6; O2SAT 98; BMI 30.8
--- NOTE | 2024-11-16 11:53 | ED_ITS ---
HPI - General Adult General Chief complaint: General Medical Stated complaint: Methadone dose Time Seen by Provider: 11/16/24 11:53 Source: patient Limitations: no limitations History of Present Illness ED Provider: Anika Pappas PA-C HPI narrative: 34-year-old male with a history of opiate use disorder now on methadone, who presents requesting his methadone dose. Patient states due to transportation issues he missed his dose, he receives it at [facility]. Related Data Home Medications ?Medication ?Instructions ?Recorded ?Confirmed methadone 10 mg/mL oral concentrate 85 mg PO DAILY 03/03/24 11/16/24 Previous Rx's ?Medication ?Instructions ?Recorded magnesium oxide 400 mg PO DAILY #30 tabs 03/08/23 potassium chloride 10 mEq 10 meq PO DAILY #30 tabs 03/08/23 tablet,extended release (K-Tab) spironolactone 50 mg tablet 50 mg PO DAILY #30 tabs 03/08/23 Allergies Allergy/AdvReac Type Severity Reaction Status Date / Time fish derived [fish] Allergy Anaphylaxis Verified 11/16/24 11:46 shellfish derived Allergy Anaphylaxis Verified 11/16/24 11:46 Review of Systems Review of Systems: Yes all other systems are reviewed and are negative Constitutional: Constitutional: Denies fatigue and Denies fever(s) Cardiovascular: Cardiovascular: Denies chest pain and Denies dyspnea Respiratory: Respiratory: Denies dyspnea Gastrointestinal: Gastrointestinal: Denies abdominal pain, Denies diarrhea, Denies nausea and Denies vomiting Musculoskeletal: Musculoskeletal: Denies myalgias Endocrine: Endocrine: Denies fatigue PMF Past Medical History Attestation statement: The following information was validated with the patient. Social History Social History Alcohol intake: current Alcohol intake frequency: 3 or more drinks per day Alcohol type: hard liquor Advance Directives: No Advance Directives Information Provided: Yes Do you have a plan to hurt others: No Plan Physical Exam ED Vital Signs: Vital Signs - 24 hr 11/16/24 11:42 Temperature 98 F Pulse Rate 76 Respiratory Rate 19 Pulse Oximetry 98 Oxygen Delivery Method Room Air BMI result Body Mass Index 30.8 Const Other: Alert Orientation/consciousness: patient oriented x3 Resp Effort & Inspection: normal respiratory effort Cardio Other: Normal peripheral perfusion Skin Other: Warm dry no rash Neuro General: patient oriented x3, no focal motor deficits and CN's II-XI intact bilaterally Psych Other: Calm cooperative Course Course Course Narrative: This is a rapid medical exam performed by Anika Pappas PA-C. The patient is a 34-year-old male with a history of opiate use disorder now on methadone, who presents requesting his methadone dose. Patient states due to transportation issues he missed his dose, he receives it at [facility]. We will order the dose once we can verify with [facility]. Medical Decision Making Medical Decision Making MDM Narrative: 34-year-old male with a history of opiate use disorder now on methadone, who presents requesting his methadone dose. Patient states due to transportation issues he missed his dose, he receives it at [facility]. Problem: Opiate use disorder History: Per patient I have considered the following differential diagnoses: Need for methadone Plan: We called [facility] to verify, sending the faxed to pharmacy, we will do se the patient once. Discharge Plan Discharge Clinical Impression: Substance abuse in remission Patient Disposition: Home, Self-Care Additional Instructions: You received your daily dose of methadone, 85 mg. Prescriptions: No Action methadone 10 mg/mL Concentrate 85 mg PO DAILY Rx Instructions: [facility] [employer] [phone] magnesium oxide 400 mg magnesium tablet 400 mg PO DAILY Qty: 30 0RF potassium chloride [K-Tab] 10 mEq tablet extended release 10 meq PO DAILY Qty: 30 0RF spironolactone 50 mg tablet 50 mg PO DAILY Qty: 30 0RF Print Language: Bruneian
[2024-11-16] MEDS: methADONE HCl 20 MG/2 ML ORAL.CONC 85 MG PO (12:08)
--- NOTE | 2024-11-16 12:08 | HE.PHANOTE ---
Methadone Methadone verification form sent up from [facility]. Patient gets dose at [facility] [phone]. Patients last dose of methadone was 85 mg on 11/15/24.
[2024-11-16 12:36] VITALS: BP 144/76; PULSE 76; RESP 19; TEMP 36.6; O2SAT 98
--- OUTSIDE RECORDS SUMMARY | 2024-11-16 13:07 | XMS_ITS | Referral Summary ---
Author Organization [facility] Address [address] [place] [address] Care Team Providers Care Crop Quantitative Geneticist Name Role Phone Patient, Has No Pcp [...] and Ativan from streets. Received records from [facility] in [place] where he was admitted for detox 07/2015: [...] Not on file Procedures * Due to [place] [employer] law, this organization might not be sharing negative HIV tests. Procedure Name Priority Date/Time Associated Diagnosis Comments CT ABDOMEN PELVIS WO CONTRAST Routine 02/02/2024 10:26 AM EDT from Last 3 Months or Most Recently Relevant to Health Maintenance Results * Due to [place] [employer] law, this organization might not be sharing [...] obtain the completed interpretation. ? Workstation ID: [id number] Up-to-date CT equipment and radiation dose reduction [...] Normal bone mineral density. Resulting Agency Comment [id number] Procedure Note Maru Eubanks MD - 02/02/2024 [...] possible to obtain thecompleted interpretation. Workstation ID: [id number] Up-to-date CT equipment and radiation dose reduction techniques wereemployed. CTDIvol: 15.3 mGy. DLP: 811 mGy-cm. Elizabeth Vizcaino MD IM CT PROCEDURES Final Result from Last 3 Months or Most Recently Relevant to Health Maintenance Insurance [facility] MEDICAID Advance Directives Documents on File Type Date Recorded Patient Hoop Puncher Expl anation Health Care Proxy 02/08/2024 5:53 PM 2023 * Full Code (Latest Code Status on File) Date Activated Date Inactivated Comments 01/23/2024 5:59 PM 02/16/2024 7:48 PM Healthcare Agents on File Name Relationship Healthcare Agent Relationshi p Communication [facility] Health Care Agent Care Teams Crop Quantitative Geneticist Relationship Specialty Start Date End Date Patient, Has No Pcp Or Ref DO NOT EDIT THIS RECORD VIA PROVIDER ON THE FLY PCP - General Assembler Movement 02/21/23
--- OUTSIDE RECORDS SUMMARY | 2024-11-16 13:07 | XMS_ITS | Clinical Summary ---
Author Organization [facility] Address [address] [place] [address] Care Team Providers Care Wastewater Superintendent Name Role Phone Emelia Ahn PHOTOGRAPHIC PROCESS ATTENDANT Primary Care Provider Source Comments PLEASE NOTE, if this patient [...] 12/03/2015 Overview (12/03/2015): Dx as noted in [facility] records; Reportedly followed [facility] 10/23/08. H/O: substance abuse ([facility]) 11/27/2015 Overview (11/27/2015): Alcohol, Heroin, Xanax and Ativan from streets. Received records from [facility] in [place] where he was admitted for detox 07/2015: Court ordered treatment, had felony charges for drugs. Reportedly he used suboxone in the past but was selling mostly?. He was treated in detox with protocol( also including Hydroxyzine, clonidine, keppra prophylaxis, Remeron, Trazodone prn, Subutex) Depression with anxiety 11/08/2015 Overview (12/03/2015): Inconsistent History. Says that he is now Following with at [facility], [facility]. He brought a letter from his Clinical supervisor public message service at [facility] suggesting that he will benefit from Pharmacotherapy. [...] to Subscriber:Self Name:RussellLucia Payer ID:[id number] Type:Indemnity Address: [facility] [id number] MEDICAID DENTAL [facility] Care Teams Wastewater Superintendent Relationship Specialty Start Date End Date Emelia Ahn FNP [address] [place] [id number] PCP - General 12/05/18
--- OUTSIDE RECORDS SUMMARY | 2024-11-16 13:07 | XMS_ITS | Clinical Summary ---
Author Organization [facility] Address [address] [place] [address] Care Team Providers Care Social Services Designee Name Role Phone Patient, Has No Pcp [...] and Ativan from streets. Received records from [facility] in [place] where he was admitted for detox 07/2015: [...] 02/02/2024, 12/16/2023, 12/16/2023 Procedures * Due to [place] [employer] law, this organization might not be sharing negative HIV tests. Procedure Name Priority Date/Time Associated Diagnosis Comments CT ABDOMEN PELVIS WO CONTRAST Routine 02/02/2024 10:26 AM EDT from Last 3 Months or Most Recently Relevant to Health Maintenance Results * Due to [place] [employer] law, this organization might not be sharing [...] obtain the completed interpretation. ? Workstation ID: [id number] Up-to-date CT equipment and radiation dose reduction [...] Normal bone mineral density. Resulting Agency Comment [id number] Procedure Note Maru Eubanks MD - 02/02/2024 [...] possible to obtain thecompleted interpretation. Workstation ID: [id number] Up-to-date CT equipment and radiation dose reduction techniques wereemployed. CTDIvol: 15.3 mGy. DLP: 811 mGy-cm. Elizabeth Vizcaino MD IMG CT PROCEDURES Final Result from Last 3 Months or Most Recently Relevant to Health Maintenance Insurance [facility] MEDICAID Advance Directives Documents on File Type Date Recorded Patient Manager Of Compensation Expl anation Health Care Proxy 02/08/2024 5:53 PM 2023 * Full Code (Latest Code Status on File) Date Activated Date Inactivated Comments 01/23/2024 5:59 PM 02/16/2024 7:48 PM Healthcare Agents on File Name Relationship Healthcare Agent Relationshi p Communication [facility] Care Agent Care Teams Social Services Designee Relationship Specialty Start Date End Date Patient, Has No Pcp Or Ref DO NOT EDIT THIS RECORD VIA PROVIDER ON THE FLY PCP - General Shade Bander 02/21/23
--- OUTSIDE RECORDS SUMMARY | 2024-11-16 13:07 | XMS_ITS | Clinical Summary ---
Author Organization [facility] it Address [address] [place] [address] Care Team Providers Care Curatorial Assistant Name Role Phone Kim Lemus MD Primary Care Provider [phone] Surgical History Surgery Date Site/Laterality Comments WISDOM [...] age to complete this topic Care Teams Curatorial Assistant Relationship Specialty Start Date End Date Kim Lemus MD [address] [place] [address] SONU Soni PCP - General Internal Medicine 05/11/19
== END 2024-11-16 12:37 | disposition home or self-care (01) ==
PROVIDERS: Emergency Provider Emergency Medicine Emergency Medical Services
DX: F11.90 Opioid use, unspecified, uncomplicated (principal); Z71.51 Drug abuse counseling and surveillance of drug abuser
CPT/HCPCS: 99282; 99283

== ENCOUNTER 2024-12-10 11:59 | Emergency (ER) | payer OTHER, SELFPAY ==
[2024-12-10 12:06] VITALS: BP 161/93; PULSE 107; RESP 18; TEMP 36.6; O2SAT 97; BMI 33.3
--- NOTE | 2024-12-10 12:08 | ED.GENADULT ---
HPI - General Adult General Chief complaint: General Medical Stated complaint: methadone dose Time Seen by Provider: 12/10/24 13:04 Source: patient Mode of arrival: ambulatory Limitations: no limitations History of Present Illness ED Provider: Catrachita Esteban PA-C HPI narrative: Patient is a 34 year old assigned male at with a history of opiate use disorder, on 85mg of methadone, presenting to the emergency department today for his methadone dose. Patient states that he was having ride difficulties and missed his dose. Patient denies any dizziness, lightheadedness, abdominal pain, nausea, vomiting, fever, chills, blurry vision, double vision, loss of vision, chest pain, difficulty breathing, shortness of breath, back pain, night sweats, pain with urination, increased urinary frequency, increased urinary urgency, blood in his urine or stool, syncope or a near syncopal episode, recent trauma or falls, bowel incontinence, bladder incontinence, or any other complaints at this time. MD complaint: methadone dosing needed Relieving factors: none Exacerbating factors: none Associated symptoms: denies other symptoms Treatments prior to arrival: none Related Data Home Medications ?Medication ?Instructions ?Recorded ?Confirmed methadone 10 mg/mL oral concentrate 85 mg PO DAILY 03/03/24 11/16/24 Previous Rx's ?Medication ?Instructions ?Recorded magnesium oxide 400 mg PO DAILY #30 tabs 03/08/23 potassium chloride 10 mEq 10 meq PO DAILY #30 tabs 03/08/23 tablet,extended release (K-Tab) spironolactone 50 mg tablet 50 mg PO DAILY #30 tabs 03/08/23 Allergies Allergy/AdvReac Type Severity Reaction Status Date / Time fish derived [fish] Allergy Anaphylaxis Verified 12/10/24 12:08 shellfish derived Allergy Anaphylaxis Verified 12/10/24 12:08 Review of Systems Constitutional: Constitutional: Reports no additional constitutional complaints, Denies chills, Denies fever(s) and Denies night sweats Eyes: Eyes: Reports no additional eye complaints, Denies blurry vision, Denies change in vision, Denies diplopia, Denies eye discharge, Denies loss of vision and Denies eye pain ENT: Denies dizziness Cardiovascular: Cardiovascular: Reports no additional cardiovascular complaints, Denies chest pain, Denies lightheadedness, Denies Loss of Consciousness and Denies dyspnea Respiratory: Respiratory: Reports no additional respiratory complaints and Denies dyspnea Gastrointestinal: Gastrointestinal: Reports no additional gastrointestinal complaints, Denies abdominal pain, Denies melena, Denies hematochezia, Denies change in bowel habits and Denies change in stool character Genitourinary: Genitourinary: Reports no additional male genitourinary complaints, Denies hematuria, Denies oliguria, Denies difficulty urinating, Denies dysuria, Denies urinary frequency, Denies urinary hesitancy, Denies urinary incontinence and Denies urinary urgency Musculoskeletal: Musculoskeletal: Reports no additional musculoskeletal complaints, Denies numbness and Denies tingling Neurologic: Denies dizziness, Denies loss of vision, Denies numbness and Denies tingling Psychiatric: Psychiatric: Reports no additional psychiatric complaints Endocrine: Endocrine: Reports no additional endocrine complaints Hematologic/Lymphatic: Hematologic/Lymphatic: Reports no additional hematologic/lymphatic complaints Allergic/Immunologic: Allergic/Immunologic: Reports no additional allergic/immunologic complaints PMFSH Past Medical History Attestation statement: The following information was validated with the patient. Source: old records reviewed and nursing notes reviewed Medical History Opiate use Social History Social History Alcohol intake: current Alcohol intake frequency: 3 or more drinks per day Alcohol type: hard liquor Patient Tobacco Use Status: Tobacco use Unknown Physical Exam ED Vital Signs: Vital Signs - 24 hr 12/10/24 12:06 Temperature 97.9 F Pulse Rate 107 H Respiratory Rate 18 Blood Pressure 161/93 H Pulse Oximetry 97 Oxygen Delivery Method Room Air BMI result Body Mass Index 33.3 Const General: cooperative, no acute distress, alert and awake Nutritional Appearance: well nourished Orientation/consciousness: patient oriented x3 Limitations: no limitations HENMT Head: Yes normal to inspection and Yes atraumatic Ears: hearing grossly normal bilaterally and external ears normal General nose exam: Normal external nose present, no nasal discharge noted and no epistaxis Face and sinus: Yes normal facial exam, No abrasion and No laceration Mouth: Normal oral and palatal mucosa present, no drooling and no muffled voice Eyes General: appearance normal, both eyes and all related structures Periorbital: periorbital findings normal Eyelids: Yes eyelids normal Conjunctivae: conjunctivae normal Pupils: Equal, round and reactive pupils present EOM: EOMs intact bilaterally Neck Neck: Yes normal visual inspection, Yes full ROM and Yes no lymphadenopathy Chest Chest palpation & inspection: normal inspection of the chest Resp Effort & Inspection: normal respiratory effort and able to speak in complete sentences GI Inspection: Yes normal to inspection Neuro General: patient oriented x3, moves all extremities and CN's II-XI intact bilaterally Cranial nerves: Yes Equal, round and reactive pupils present Cognition (Neuro): normal cognition Extrem General: Yes normal to inspection, Yes full ROM and Yes capillary refill normal Psych Appearance: grossly normal Mental Status: mental status grossly normal Affect: normal affect Attitude: cooperative Thought process: Normal thought process present Thought content: Normal thought content present Insight: Good insight present (Psych) Course Course Course Narrative: RME performed by Catrachita Esteban PA-C. Patient is a 34 year old assigned male at presenting to the emergency department for his methadone dose. Patient states that his ride bailed on him to get his methadone dose. Detailed physical exam and review of systems are deferred to the care clinician. Patient placed back in the waiting room pending room availability. Medical Decision Making Medical Decision Making MDM Narrative: Patient is a 34 year old assigned male at with a history of opiate use disorder, on 85mg of methadone, presenting to the emergency department today for his methadone dose. Patient's physical exam was unremarkable. I explained my physical exam findings to the patient. I answered all questions asked by the patient. Patient received his methadone dose, without incident. I stressed the importance of the patient taking his medication as directed (either prescribed or as the over the counter packaging recommends). I stressed the importance of the patient following up with his primary care provider. I stressed the importance of the patient returning to the emergency department immediately if he were to develop any dizziness, shortness of breath, difficulty breathing, chest pain, blurry vision, loss of vision, nausea, vomiting, abdominal pain, fever, chills, back pain, or any other complaints. Patient verbalized agreement and understanding with this treatment plan and discharge. Differential Diagnosis Differential Diagnoses: The differential diagnosis associated with the presentation includes Methadone dose Discharge Plan Discharge Clinical Impression: Methadone dependence Patient Disposition: Home, Self-Care Instructions: Opioid Use Disorder (ED) Additional Instructions: Follow up with your primary care provider. Return to the emergency department immediately if you develop any dizziness, shortness of breath, difficulty breathing, chest pain, blurry vision, loss of vision, nausea, vomiting, abdominal pain, fever, chills, back pain, or any other complaints. Prescriptions: No Action methadone 10 mg/mL Concentrate 85 mg PO DAILY Rx Instructions: MAU DUNCAN [phone] magnesium oxide 400 mg magnesium tablet 400 mg PO DAILY Qty: 30 0RF potassium chloride [K-Tab] 10 mEq tablet extended release 10 meq PO DAILY Qty: 30 0RF spironolactone 50 mg tablet 50 mg PO DAILY Qty: 30 0RF Referrals: [facility] Family Medicine [Provider Group] (Call to establish and follow up with a primary care provider. If you already have a primary care provider, please follow up with them.) [facility] Primary Care, [facility] [Provider Group] (Call to establish and follow up with a primary care provider. If you already have a primary care provider, please follow up with them.) [facility] Primary [facility] [Provider Group] (Call to establish and follow up with a primary care provider. If you already have a primary care provider, please follow up with them.) [facility] Primary [facility] [Provider Group] (Call to establish and follow up with a primary care provider. If you already have a primary care provider, please follow up with them.) Print Language: Korean
--- NOTE | 2024-12-10 12:31 | PC.NURSE ---
called and left message at [facility] to verify methadone dose, awaiting call back
--- NOTE | 2024-12-10 13:49 | HE.PHANOTE ---
Re Methadone Received verification from nursing. Pt receives 85mg from [facility] and take home bottles. Was last there on 12/08/24 and had their dose yesterday via take home bottle.
[2024-12-10] MEDS: methADONE HCl 20 MG/2 ML ORAL.CONC 85 MG PO (14:02)
[2024-12-10 14:09] VITALS: BP 161/93; PULSE 107; RESP 18; TEMP 36.6; O2SAT 97
--- OUTSIDE RECORDS SUMMARY | 2024-12-10 15:34 | XMS_ITS | Clinical Summary ---
Author Organization [facility] it Address [address] [place] [address] Care Team Providers Care Analytics Lead Name Role Phone Kim Lemus MD Primary Care Provider [phone] Surgical History Surgery Date Site/Laterality Comments WISDOM [...] 3 Alive 10/11 JONA 1986 Father Alive 196 Mother Alive 1964 Paternal Grandmother Social History Tobacco Use Types Packs/Day Years Used Date Smoking Tobacco: Every Day Cigarettes Smokeless Tobacco: Never Alcohol Use Standard Drinks/Week Comments Not Asked 0 (1 standard drink = 0.6 oz pur e alcohol) Sex and Gender Information Value Date Recorded Sex Assigned at Not on file Legal Sex Male 2:38 PM EST Gender Identity Not on file Sexual Orientation Not on file Obstetrics History Plan of Treatment Health Maintenance Due Date Last Done Comments Pneumococcal Vaccine: Pediatrics (0 to 5 Years) and At-Risk Patients (6 to 64 Years) (1 of 2 - PCV) 2010 DTaP,Tdap,and Td Vaccines (6 - Td or Tdap) 06/01/2017 06/01/2007, 06/03/1996, 08/05/1992, Additional history exists Depression Screening 09/08/2022 HIV Screening 09/08/2022 Hepatitis C Screening 09/08/2022 Social Influencers of Health Screening 09/08/2022 COVID-19 Vaccine ( - season) 2024 Influenza Vaccine (#1) 2024 HIB Vaccines Aged Out 1991, 1991 No lo nger eligible based on patient's age to complete this topic IPV Vaccines Completed 12/05/1996, 05/11, 1991, Additional history exists MMR Vaccines Completed 12/05/1996, 05/23/1996 Hepatitis B Vaccines Completed 06/11/2004, 04/16/20 Meningococcal ACWY Vaccine Completed 06/01/2007 HPV Vaccines Aged Out No longer eligi ble based on patient's age to complete this topic Hepatitis A Vaccines Aged Out No long er eligible based on patient's age to complete this topic Meningococcal B Vacine Aged Out No lo nger eligible based on patient's age to complete this topic RSV Immunization Patients Under 20 months Aged Out No longer eligible based on patient's age to complete this topic Varicella Vaccines Aged Out No longer eligible based on patient's age to complete this topic Care Teams Analytics Lead Relationship Specialty Start Date End Date Kim Lemus MD [address] [place] [address] [place] PCP - General Internal Medicine 05/11/19
--- OUTSIDE RECORDS SUMMARY | 2024-12-10 15:34 | XMS_ITS | Clinical Summary ---
Author Organization [facility] Address [address] [place] [address] Care Team Providers Care Silo Operator Name Role Phone Emelia Ahn COUNTER MOLDER Primary Care Provider [phone] Source Comments PLEASE NOTE, if this patient [...] 12/03/2015 Overview (12/03/2015): Dx as noted in [facility] records; Reportedly followed [facility] 10/23/08. H/O: substance abuse ([facility]) 11/27/2015 Overview (11/27/2015): Alcohol, Heroin, Xanax and Ativan from streets. Received records from [facility] in [place] where he was admitted for detox 07/2015: Court ordered treatment, had felony charges for drugs. Reportedly he used suboxone in the past but was selling mostly?. He was treated in detox with protocol( also including Hydroxyzine, clonidine, keppra prophylaxis, Remeron, Trazodone prn, Subutex) Depression with anxiety 11/08/2015 Overview (12/03/2015): Inconsistent History. Says that he is now Following with at [facility], [facility]. He brought a letter from his Clinical supervisor plastering at [facility] suggesting that he will benefit from [...] to Subscriber:Self Name:RussellLucia Payer ID:[id number] Type:Indemnity Address: [facility] [id number] MEDICAID DENTAL [facility] DENTAL Care Teams Silo Operator Relationship Specialty Start Date End Date Emelia Ahn FNP [address] [place] [id number] PCP - General 12/05/18
--- OUTSIDE RECORDS SUMMARY | 2024-12-10 15:34 | XMS_ITS | Clinical Summary ---
Author Organization [facility] Address [address] [place] [address] Care Team Providers Care Rolled Oats Mill Operator Name Role Phone Patient, Has No [...] and Ativan from streets. Received records from [facility] in [place] where he was admitted for detox 07/2015: [...] HIV Screening 1991 Hepatitis C Screening 1991 Varicella Vaccines (1 of 2 - 13+ 2-dose series) 2004 Hepatitis B Vaccines (3 of 3 - 3-dose series) 08/06/2004 06/11/2004, 04/16/2003 Pneumococcal Vaccine: Pediat karlene (0-5 Years) and At-Risk Patients (6-50 Years) (1 of 2 - PCV) 2010 [...] 02/02/2024, 12/16/2023, 12/16/2023 Procedures * Due to [place] [employer] law, this organization might not be sharing negative HIV tests. Procedure Name Priority Date/Time Associated Diagnosis Comments CT ABDOMEN PELVIS WO CONTRAST Routine 02/02/2024 10:26 AM EDT from Last 3 Months or Most Recently Relevant to Health Maintenance Results * Due to [place] [employer] law, this organization might not be sharing [...] obtain the completed interpretation. ? Workstation ID: [id number] Up-to-date CT equipment and radiation dose reduction [...] Normal bone mineral density. Resulting Agency Comment [id number] Procedure Note Maru Eubanks MD - 02/02/2024 [...] possible to obtain thecompleted interpretation. Workstation ID: [id number] Up-to-date CT equipment and radiation dose reduction techniques wereemployed. CTDIvol: 15.3 mGy. DLP: 811 mGy-cm. Elizabeth Vizcaino MD IMG CT PROCEDURES Final Result from Last 3 Months or Most Recently Relevant to Health Maintenance Insurance [facility] MEDICAID Advance Directives Documents on File Type Date Recorded Patient Care Services Manager Expl anation Health Care Proxy 02/08/2024 5:53 PM 2023 * Full Code (Latest Code Status on File) Date Activated Date Inactivated Comments 01/23/2024 5:59 PM 02/16/2024 7:48 PM Healthcare Agents on File Name Relationship Healthcare Agent Relationshi p Communication Renyabel Nicholas Mother Health Care Agent Care Teams Rolled Oats Mill Operator Relationship Specialty Start Date End Date Patient, Has No Pcp Or Ref DO NOT EDIT THIS RECORD VIA PROVIDER ON THE FLY PCP - General Ampoule Filler And Sealer 02/21/23
--- OUTSIDE RECORDS SUMMARY | 2024-12-10 15:34 | XMS_ITS | Referral Summary ---
Author Organization [facility] Address [address] [place] [address] Care Team Providers Care Sales & Service Associate Name Role Phone Patient, Has No Pcp [...] and Ativan from streets. Received records from [facility] in [place] where he was admitted for detox 07/2015: [...] Not on file Procedures * Due to [place] [employer] law, this organization might not be sharing negative HIV tests. Procedure Name Priority Date/Time Associated Diagnosis Comments CT ABDOMEN PELVIS WO CONTRAST Routine 02/02/2024 10:26 AM EDT from Last 3 Months or Most Recently Relevant to Health Maintenance Results * Due to [place] [employer] law, this organization might not be sharing [...] obtain the completed interpretation. ? Workstation ID: [id number] Up-to-date CT equipment and radiation dose reduction [...] Normal bone mineral density. Resulting Agency Comment [id number] Procedure Note Maru Eubanks MD - 02/02/2024 [...] possible to obtain thecompleted interpretation. Workstation ID: [id number] Up-to-date CT equipment and radiation dose reduction techniques wereemployed. CTDIvol: 15.3 mGy. DLP: 811 mGy-cm. Elizabeth Vizcaino MD IM CT PROCEDURES Final Result from Last 3 Months or Most Recently Relevant to Health Maintenance Insurance [facility] MEDICAID Advance Directives Documents on File Type Date Recorded Patient Shift Supervisor Expl anation Health Care Proxy 02/08/2024 5:53 PM 2023 * Full Code (Latest Code Status on File) Date Activated Date Inactivated Comments 01/23/2024 5:59 PM 02/16/2024 7:48 PM Healthcare Agents on File Name Relationship Healthcare Agent Relationshi p Communication Reny Nicholas [facility] Health Care Agent Care Teams Sales & Service Associate Relationship Specialty Start Date End Date Patient, Has No Pcp Or Ref DO NOT EDIT THIS RECORD VIA PROVIDER ON THE FLY PCP - General Hospice Art Therapist 02/21/23
== END 2024-12-10 14:09 | disposition home or self-care (01) ==
PROVIDERS: Emergency Provider Emergency Medicine
DX: F11.20 Opioid dependence, uncomplicated (principal)
CPT/HCPCS: 99282; 99283

== ENCOUNTER 2024-12-13 08:46 | Inpatient (IN) | payer OTHER, SELFPAY ==
--- NOTE | ~2024-12-13 | US_ITS ---
EXAMINATION: US ABDOMEN LIMITED CLINICAL INFORMATION: Right upper quadrant abdominal pain.. COMPARISON: None available. TECHNIQUE: Real-time imaging of the right upper quadrant abdominal viscera. FINDINGS: PANCREAS: No peripancreatic fluid collections. LIVER: Liver measures 14 cm. Nodular surface. Increased echotexture. No solid or cystic lesion detected by the registered radiologic technologist. No intrahepatic biliary ductal dilatation. GALLBLADDER: Fluid-filled and prominent. No pericholecystic fluid collection or gallbladder wall thickening. COMMON BILE DUCT: 4 mm. FREE FLUID: None. US/US abdomen limited IMPRESSION: Hepatocellular disease/cirrhosis. No cholelithiasis. No ascites. Questionable hydrops gallbladder. Electronically signed by: Jan Melendez MD 12/13/2024 12:33 PM [facility]
--- NOTE | ~2024-12-13 | NM_ITS ---
EXAMINATION: NM HEPATOBILIARY WITHOUT PHARM HISTORY: hydrops GB. TECHNIQUE: An hepatobiliary scan was performed following intravenous administration of 5 mCi technetium 99m-mebrofenin. Images were obtained to 4.5 hours. COMPARISON: Correlation is made with an abdominal ultrasound dated 12/13/2024. FINDINGS: There is normal uptake and excretion of the radiopharmaceutical by the liver. Common bile duct activity is seen at 25 minutes. Small bowel activity is noted at 30 minutes. No gallbladder activity is seen to 2 hours. Faint gallbladder activity is noted at 3 hours. There is activity within a distended gallbladder at 4.5 hours. Due to the delayed appearance of the gallbladder, intravenous CCK was not administered. NM/NM hepatobiliary wo pharm IMPRESSION: No evidence of cystic duct obstruction. Intravenous CCK was not administered due to the delayed appearance of the gallbladder. Electronically signed by: Conrad Rea MD 12/14/2024 02:35 PM [facility]
--- NOTE | ~2024-12-13 | CT_ITS ---
CLINICAL HISTORY: RUQ abd pain CT abdomen with contrast Comparison: None ultrasound of the abdomen from 12/13/2024 Findings: No consolidation of the imaged lung bases. Left-sided gynecomastia is partially imaged. Redemonstration of the liver surface nodularity of the cirrhosis splenomegaly with spleen measuring 16 cm selectively. The adrenal glands are normal. Mild volume loss of the pancreas is noted. No hydronephrosis. The gallbladder is markedly distended. Multiple peripancreatic, mesenteric, periaortic lymph nodes are nonspecific and may be reactive. Upper abdominal varices are noted including paraesophageal, perigastric, and perisplenic. Mild dilatation of the imaged CBD. No portal vein thrombosis. No small bowel obstruction. Moderate to severe stool burden in the [id number]. The appendix is not definitively seen on this abdomen only study. Calcified and noncalcified plaque involving the imaged aorta and its branches. Mild free fluid in the abdomen and likely due to ascites. Degenerative changes include facet arthropathy of the imaged spine bilateral spondylolysis of the L4 with moderate spinal stenosis with foraminal narrowing at L4-L5 IMPRESSION: 1. Marked distention of the gallbladder is nonspecific by CT. 2. CT findings of cirrhosis and portal hypertension, with splenomegaly and multiple upper abdominal varices. This document has been electronically signed by: Bear Ohara MD on 12/14/2024 19:22:52
[2024-12-13 08:57] VITALS: BP 156/94; PULSE 100; RESP 20; TEMP 37; O2SAT 99; BMI 38.3
[2024-12-13 09:29] LABS: MANUAL DIFF FLAG NO
[2024-12-13 09:35] LABS: Appearance Urine Clear; Basophils Percent Auto 0.2 % (0-2); Color Urine Dark Yellow; Eosinophils Absolute Auto 0.1 X10*3/uL (0.0-0.4); Eosinophils Percent Auto 1.3 % (0-4); Glucose Urine UA Negative (Negative); Hematocrit 40.1 % (42.0-52.0); Hemoglobin 13.8 g/dl (14.0-18.0); Imm Gran Abs Auto 0.01 X10*3/uL (0.00-0.03); Imm Gran Pct Auto 0.2 % (0.0-0.4); Leukocyte Esterase Urine Trace (Negative); Lymphocytes Absolute Auto 1.4 X10*3/uL (1.2-4.9); Lymphocytes Percent Auto 30.3 % (20-40); Mean Corpuscular HGB Conc 34.4 g/dl (31.0-36.0); Mean Corpuscular Hemoglobin 30.8 pg (27.0-33.0); Mean Corpuscular Volume 89.5 fL (80.0-98.0); Monocytes Absolute Auto 0.3 X10*3/uL (0.1-1.2); Monocytes Percent Auto 6.5 % (2-11); Neutrophils Absolute Auto 2.9 x10*3/uL (2.0-8.3); Neutrophils Percent Auto 61.5 % (45-73); Nitrite Urine Negative (Negative); PH 6.5 (5.0-9.0); Red Blood Count 4.48 X10*6/uL (4.60-5.80); Red Cell Distribution Width 15.8 % (11.0-16.0); UMIC TRIGGER UACC YES; Urine Blood Negative (Negative); Urine Ketones Trace mg/dL (Negative); Urine Protein Negative (Neg-Trace); White Blood Count 4.8 X10*3/uL (4.8-10.8)
[2024-12-13 09:36] LABS: Platelet Count 73 X10*3/uL (160-400)
[2024-12-13 09:39] LABS: Ammonia 123 umol/L (13-55)
[2024-12-13 09:42] LABS: Bacteria Urine None Seen (None Seen); Calcium Oxalate Crystals Urine Present; Hyaline Casts Urine 0-2 /LPF (0-2); RBC Urine 0-2 /HPF (0-2); Squamous Epithelial Cell Urine 0-2 /HPF (0-2); WBC Urine 0-5 /HPF (0-5)
[2024-12-13 09:45] LABS: Alanine Aminotransferase 54 U/L (0-40); Alkaline Phosphatase 253 U/L (39-117); Anion Gap 12 (12-20); Aspartate Amino Transferase 137 U/L (5-37); Bilirubin Direct 1.5 mg/dL (0.0-0.5); Bilirubin Total 2.5 mg/dL (0.0-1.0); Blood Urea Nitrogen 5 mg/dL (9-16); Calcium 8.1 mg/dL (8.4-10.2); Carbon Dioxide 25 mmol/L (22-29); Chloride 105 mmol/L (96-108); Creatinine Clr Calc Pharmacy 161.1; Estimated Glomerular Filt Rate > 60; Glucose Random 116 mg/dL (60-115); Potassium 3.5 mmol/L (3.3-5.1); Sodium 138 mmol/L (135-145); Total Protein 7.5 g/dL (6.5-8.0)
[2024-12-13 10:11] LABS: Influenza A PCR NEGATIVE (Negative); Influenza B PCR NEGATIVE (Negative); Resp Syncy Virus RNA Qual PCR NEGATIVE (Negative); SARS COV2 PCR INHOUSE NEGATIVE (Negative)
--- OUTSIDE RECORDS SUMMARY | 2024-12-13 10:45 | XMS_ITS | Clinical Summary ---
Author Organization [facility] Address [address] [place] [address] Care Team Providers Care Bilingual Case Manager Name Role Phone Patient, Has No Pcp [...] and Ativan from streets. Received records from [facility] in [place] where he was admitted for detox 07/2015: [...] Additional history exists Alcohol/Substance Use Screening 10/10/2024 Depression Screening and Follow-Up 10/10/2024 Social Drivers of Health Melonie ual Screening 10/10/2024 RSV Vaccine (60+ years old a nd patients) (1 - 1-dose 75+ series) 2066 Abdominal Aortic Aneurysm (A AA) Screening Completed 02/02/2024, 12/16/2023, 12/16/2023 Procedures * Due to [place] [employer] law, this organization might not be sharing negative HIV tests. Procedure Name Priority Date/Time Associated Diagnosis Comments CT ABDOMEN PELVIS WO CONTRAST Routine 02/02/2024 10:26 AM EDT from Last 3 Months or Most Recently Relevant to Health Maintenance Results * Due to [place] [employer] law, this organization might not be sharing [...] obtain the completed interpretation. ? Workstation ID: [id number] Up-to-date CT equipment and radiation dose reduction [...] Normal bone mineral density. Resulting Agency Comment [id number] Procedure Note Maru Eubanks MD - 02/02/2024 [...] possible to obtain thecompleted interpretation. Workstation ID: [id number] Up-to-date CT equipment and radiation dose reduction techniques wereemployed. CTDIvol: 15.3 mGy. DLP: 811 mGy-cm. Elizabeth Vizcaino MD IMG CT PROCEDURES Final Result from Last 3 Months or Most Recently Relevant to Health Maintenance Insurance [facility] MEDICAID Advance Directives Documents on File Type Date Recorded Patient Multicultural Internship Expl anation Health Care Proxy 02/08/2024 5:53 PM 2023 * Full Code (Latest Code Status on File) Date Activated Date Inactivated Comments 01/23/2024 5:59 PM 02/16/2024 7:48 PM Healthcare Agents on File Name Relationship Healthcare Agent Relationshi p Communication Reny Nicholas Mother Health Care Agent Care Teams Bilingual Case Manager Relationship Specialty Start Date End Date Patient, Has No Pcp Or Ref DO NOT EDIT THIS RECORD VIA PROVIDER ON THE FLY PCP - General Color Adviser 02/21/23
--- OUTSIDE RECORDS SUMMARY | 2024-12-13 10:45 | XMS_ITS | Clinical Summary ---
Author Organization [facility] Address [address] [place] [address] Care Team Providers Care Manuscripts Curator Name Role Phone Emelia Ahn BONUS CLERK Primary Care Provider [phone] Source Comments PLEASE NOTE, if this patient [...] 12/03/2015 Overview (12/03/2015): Dx as noted in [facility] [place] records; Reportedly followed [facility] 10/23/08. H/O: substance abuse ([facility]) 11/27/2015 Overview (11/27/2015): Alcohol, Heroin, Xanax and Ativan from streets. Received records from [facility] in [place] where he was admitted for detox 07/2015: Court ordered treatment, had felony charges for drugs. Reportedly he used suboxone in the past but was selling mostly?. He was treated in detox with protocol( also including Hydroxyzine, clonidine, keppra prophylaxis, Remeron, Trazodone prn, Subutex) Depression with anxiety 11/08/2015 Overview (12/03/2015): Inconsistent History. Says that he is now Following with at [facility], [facility]. He brought a letter from his Clinical blending supervisor at [facility] suggesting that he will benefit from [...] to Subscriber:Self Name:RussellLucia Payer ID:[id number] Type:Indemnity Address: [facility] [id number] MEDICAID DENTAL [facility] Care Teams Manuscripts Curator Relationship Specialty Start Date End Date Emelia Ahn FNP [address] [place] [id number] PCP - General 12/05/18
--- OUTSIDE RECORDS SUMMARY | 2024-12-13 10:45 | XMS_ITS | Referral Summary ---
Author Organization [facility] Address [address] [place] [address] Care Team Providers Care File Conversion Operator Name Role Phone Patient, Has No [...] and Ativan from streets. Received records from [facility] in [place] where he was admitted for detox 07/2015: [...] Not on file Procedures * Due to [place] [employer] law, this organization might not be sharing negative HIV tests. Procedure Name Priority Date/Time Associated Diagnosis Comments CT ABDOMEN PELVIS WO CONTRAST Routine 02/02/2024 10:26 AM EDT from Last 3 Months or Most Recently Relevant to Health Maintenance Results * Due to [place] [employer] law, this organization might not be sharing [...] obtain the completed interpretation. ? Workstation ID: [id number] Up-to-date CT equipment and radiation dose reduction [...] Normal bone mineral density. Resulting Agency Comment [id number] Procedure Note Maru Eubanks MD - 02/02/2024 [...] possible to obtain thecompleted interpretation. Workstation ID: [id number] Up-to-date CT equipment and radiation dose reduction techniques wereemployed. CTDIvol: 15.3 mGy. DLP: 811 mGy-cm. Elizabeth Vizcaino MD IM CT PROCEDURES Final Result from Last 3 Months or Most Recently Relevant to Health Maintenance Insurance [facility] MEDICAID Advance Directives Documents on File Type Date Recorded Patient Rubber Goods Assembler Expl anation Health Care Proxy 02/08/2024 5:53 PM 2023 * Full Code (Latest Code Status on File) Date Activated Date Inactivated Comments 01/23/2024 5:59 PM 02/16/2024 7:48 PM Healthcare Agents on File Name Relationship Healthcare Agent Relationshi p Communication Reny [facility] Health Care Agent Care Teams File Conversion Operator Relationship Specialty Start Date End Date Patient, Has No Pcp Or Ref DO NOT EDIT THIS RECORD VIA PROVIDER ON THE FLY PCP - General International Relations Teacher 02/21/23
--- OUTSIDE RECORDS SUMMARY | 2024-12-13 10:45 | XMS_ITS | Clinical Summary ---
Author Organization [facility] it Address [address] [place] [address] Care Team Providers Care Nurse Care Manager Name Role Phone Kim Lemus MD Primary Care Provider [phone] Surgical History Surgery Date Site/Laterality Comments WISDOM [...] age to complete this topic Care Teams Nurse Care Manager Relationship Specialty Start Date End Date Kim Lemus MD [address] [place] [address] [place] PCP - General Internal Medicine 05/11/19
--- NOTE | 2024-12-13 11:45 | ED_ITS ---
HPI - Abdominal Pain General Chief Complaint: Abdominal Pain Stated Complaint: Abd pain Time Seen by Provider: 12/13/24 12:25 Source: patient Mode of arrival: ambulatory Limitations: no limitations History of Present Illness ED Provider: Catrachita Esteban PA-C HPI narrative: Patient is a 34 year old assigned male at with a history of alcohol abuse, opiate abuse currently on methadone, and untreated hepatitis C, presenting to the emergency department today with right upper quadrant abdominal pain, easier bruising, and weight gain. Patient states that over the last month he has been gaining weight and over the last few days he has had worsening right upper quadrant abdominal pain. Patient states that he used to take lactulose but has not in a very long time. Patient denies any dizziness, lightheadedness, nausea, vomiting, fever, chills, blurry vision, double vision, loss of vision, chest pain, difficulty breathing, shortness of breath, back pain, night sweats, pain with urination, increased urinary frequency, increased urinary urgency, blood in his urine or stool, syncope or a near syncopal episode, recent trauma or falls, bowel incontinence, bladder incontinence, or any other complaints at this time. MD elicited complaint: abdominal pain Onset (ago): day(s) Exacerbating factors: nothing Relieving factors: nothing Associated symptoms: denies other symptoms Related Data Home Medications ?Medication ?Instructions ?Recorded ?Confirmed methadone 10 mg/mL oral concentrate 85 mg PO DAILY 03/03/24 12/10/24 aripiprazole 15 mg tablet 15 mg DAILY 12/13/24 12/13/24 buspirone 5 mg tablet 10 mg PO BID anxiety 12/13/24 12/13/24 clonidine HCl 0.1 mg tablet 0.1 mg PO BID 12/13/24 12/13/24 folic acid 1 mg tablet 1 mg PO DAILY 12/13/24 12/13/24 gabapentin 800 mg tablet 800 mg PO TID 12/13/24 12/13/24 lorazepam 0.5 mg tablet 0.5 mg BID 12/13/24 12/13/24 melatonin 5 mg tablet 5 mg PO BEDTIME 12/13/24 12/13/24 multivitamin-iron 9 mg-folic acid 1 tab PO DAILY 12/13/24 12/13/24 400 mcg-calcium and minerals tablet (Therapeutic-M) rifaximin 550 mg tablet (Xifaxan) 550 mg PO BID 12/13/24 12/13/24 sertraline 100 mg tablet 100 mg PO DAILY 12/13/24 12/13/24 thiamine HCl (vitamin B1) 100 mg 200 mg PO DAILY 12/13/24 12/13/24 tablet Allergies Allergy/AdvReac Type Severity Reaction Status Date / Time fish derived [fish] Allergy Anaphylaxis Verified 12/13/24 09:00 shellfish derived Allergy Anaphylaxis Verified 12/13/24 09:00 Review of Systems Constitutional: Reports no additional constitutional complaints, Denies chills, Denies fever(s), Denies night sweats and Reports weight gain Eyes: Reports no additional eye complaints, Denies blurry vision, Denies change in vision, Denies diplopia, Denies eye discharge, Denies loss of vision and Denies eye pain Denies dizziness Cardiovascular: Reports no additional cardiovascular complaints, Denies chest pain, Denies lightheadedness, Denies Loss of Consciousness and Denies dyspnea Respiratory: Reports no additional respiratory complaints and Denies dyspnea Gastrointestinal: Reports no additional gastrointestinal complaints, Reports abdominal pain, Denies melena, Denies hematochezia, Denies change in bowel habits, Denies change in stool character, Denies nausea and Denies vomiting Genitourinary: Reports no additional male genitourinary complaints, Denies hematuria, Denies oliguria, Denies difficulty urinating, Denies dysuria, Denies urinary frequency, Denies urinary hesitancy, Denies urinary incontinence and Denies urinary urgency Musculoskeletal: Reports no additional musculoskeletal complaints, Denies numbness and Denies tingling Denies dizziness, Denies loss of vision, Denies numbness and Denies tingling Psychiatric: Reports no additional psychiatric complaints Endocrine: Reports no additional endocrine complaints Hematologic/Lymphatic: Reports no additional hematologic/lymphatic complaints Allergic/Immunologic: Reports no additional allergic/immunologic complaints PMFSH Past Medical History Attestation statement: The following information was validated with the patient. Source: old records reviewed and nursing notes reviewed Medical History Opiate use Social History Social History Alcohol intake: current Alcohol intake frequency: 3 or more drinks per day Alcohol type: hard liquor Patient Tobacco Use Status: Tobacco use Unknown Advance Directives: No Advance Directives Information Provided: No Physical Exam ED Vital Signs: Vital Signs - 24 hr 12/13/24 08:57 12/13/24 12:54 Temperature 98.6 F 97.8 F Pulse Rate 100 82 Respiratory Rate 20 16 Blood Pressure 156/94 H 116/68 Pulse Oximetry 99 97 Oxygen Delivery Method Room Air Room Air BMI result Body Mass Index 38.3 Const General: cooperative, no acute distress, alert and awake Nutritional Appearance: well nourished Orientation/consciousness: patient oriented x3 Limitations: no limitations HENMT Head: Yes normal to inspection and Yes atraumatic Ears: hearing grossly normal bilaterally and external ears normal General nose exam: Normal external nose present, no nasal discharge noted and no epistaxis Face and sinus: Yes normal facial exam, No abrasion and No laceration Mouth: Normal oral and palatal mucosa present, no drooling and no muffled voice Eyes General: appearance normal, both eyes and all related structures Periorbital: periorbital findings normal Eyelids: Yes eyelids normal Conjunctivae: conjunctivae normal Pupils: Equal, round and reactive pupils present EOM: EOMs intact bilaterally Neck Neck: Yes normal visual inspection, Yes full ROM and Yes no lymphadenopathy Chest Chest palpation & inspection: normal inspection of the chest Resp Effort & Inspection: normal respiratory effort and able to speak in complete sentences GI Inspection: Yes distended Palpation (GI): not firm, Tenderness to palpation present (GI) in the RUQ, no guarding and not rigid Neuro General: patient oriented x3, moves all extremities and CN's II-XI intact bilaterally Cranial nerves: Yes Equal, round and reactive pupils present Cognition (Neuro): normal cognition Extrem General: Yes normal to inspection, Yes full ROM and Yes capillary refill normal Psych Appearance: grossly normal Mental Status: mental status grossly normal Affect: normal affect Attitude: cooperative Thought process: Normal thought process present Thought content: Normal thought content present Insight: Good insight present (Psych) Course Course Course Narrative: This is an RME: Additional HPI, ROS, PE not included below will be deferred to primary provider. RME assessment and note performed by: Court Fontana PA-C This is a 34-year-old male, with a past medical history of opioid use disorder on methadone, who presents emergency department for evaluation of abdominal pain. Patient reports that he has cirrhosis from EtOH, and also untreated hep C, states he has had abdominal pain for several days. He has not been taking his lactulose for awhile. Patient with tenderness palpation to the epigastrium and right upper quadrant. No history of abdominal surgeries. Labs were obtained prior to my assessment however given right upper quadrant pain as well as elevated liver transaminases, will obtain ultrasound pending full evaluation with primary provider. Plan: Labs, UA, viral swabs, ultrasound, further ER evaluation needed. Medical Decision Making Medical Decision Making [facility] Narrative: Patient is a 34 year old assigned male at with a history of alcohol abuse, opiate abuse currently on methadone, and untreated hepatitis C, presenting to the emergency department today with right upper quadrant abdominal pain, easier bruising, and weight gain. Patient's physical exam was as noted in the physical exam portion of this note. Patient's blood work showed calcium 8.1, T bili 2.5, direct bili 1.5, AST 137, ALT 54, Alk phos 253, Ammonia 123, Albumin 3.0, and mag 1.5. Patient's RUQ US showed a questionable hydrops gallbladder. I spoke to the GI team who recommended medical admission and surgical consultation. I spoke to the surgical team who agreed to consult on the case. I spoke to the hospital team who agreed to admission. Patient was given IV magnesium. I explained my physical exam findings as well as all test results to the patient. I answered all questions asked by the patient. Patient verbalized agreement and understanding with this treatment plan and admission. Differential Diagnosis Differential Diagnoses: The differential diagnosis associated with the presentation includes Elevated ammonia Hydrops gallbladder Medication non-compliance Liver failure Admission/Observation Consideration of admission/observation: Escalation of care including admission/observation considered Patient admitted as noted in the MDM Rationale portion of this note. Consult Healthcare Provider Management of the patient was discussed with: Hospitalist (agreed to admission as noted in the MDM Rationale portion of this note.) and Gasoline Tester (I spoke to the general surgery and GI teams as noted in the MDM Rationale portion of this note. ) Lab Data [facility] Lab Attestation statement: I reviewed the patient's lab results. My interpretation of these results are in the MDM Rationale portion of this note. 12/13/24 09:11 12/13/24 09:11 Labs: Lab Results 12/13/24 Range/Units 09:11 WBC 4.8 (4.8-10.8) X10*3/uL RBC 4.48 L (4.60-5.80) X10*6/uL Hgb 13.8 L (14.0-18.0) g/dl Hct 40.1 L (42.0-52.0) % MCV 89.5 (80.0-98.0) fL MCH 30.8 (27.0-33.0) pg MCHC 34.4 (31.0-36.0) g/dl RDW 15.8 (11.0-16.0) % Plt Count 73 L D (160-400) X10*3/uL MPV 10.0 (9.4-12.4) fL Immature Gran % (Auto) 0.2 (0.0-0.4) % Neut % (Auto) 61.5 (45-73) % Lymph % (Auto) 30.3 (20-40) % [place] % (Auto) 6.5 (2-11) % Eos % (Auto) 1.3 (0-4) % Baso % (Auto) 0.2 (0-2) % Lymph # (Auto) 1.4 (1.2-4.9) X10*3/uL [place] # (Auto) 0.3 (0.1-1.2) X10*3/uL Eos # (Auto) 0.1 (0.0-0.4) X10*3/uL Baso # (Auto) 0.0 (0.0-0.2) X10*3/uL Abs Immat Gran (auto) 0.01 (0.00-0.03) X10*3/uL Absolute Neuts (auto) 2.9 (2.0-8.3) x10*3/uL Absolute Nucleated RBC 0.000 (0.0-0.012) X10*3/uL Nucleated RBC % (auto) 0.0 (0.0-0.2) /100WBC Sodium 138 (135-145) mmol/L Potassium 3.5 (3.3-5.1) mmol/L Chloride 105 (96-108) mmol/L Carbon Dioxide 25 (22-29) mmol/L Anion Gap 12 (12-20) BUN 5 L (9-16) mg/dL Creatinine 0.75 (0.5-1.4) mg/dL Estim Creat Clear Calc 161.1 Estimated GFR > 60 Random Glucose 116 H (60-115) mg/dL Calcium 8.1 L D (8.4-10.2) mg/dL Magnesium 1.5 L (1.6-2.6) mg/dL Total Bilirubin 2.5 H (0.0-1.0) mg/dL Direct Bilirubin 1.5 H (0.0-0.5) mg/dL AST 137 H (5-37) U/L ALT 54 H (0-40) U/L Alkaline Phosphatase 253 H (39-117) U/L Ammonia 123 H (13-55) umol/L Total Protein 7.5 (6.5-8.0) g/dL Albumin 3.0 L (3.5-5.0) g/dL Urine Color Dark Yellow Urine Appearance Clear Urine pH 6.5 (5.0-9.0) Ur Specific [place] 1.020 (1.005-1.025) Urine Protein Negative (Neg-Trace) mg/dL Urine Glucose (UA) Negative (Negative) mg/dL Urine Ketones Trace (Negative) mg/dL Urine Blood Negative (Negative) Urine Nitrite Negative (Negative) Ur Leukocyte Esterase Trace H (Negative) Urine RBC 0-2 (0-2) /HPF Urine WBC 0-5 (0-5) /HPF Ur Squamous Epith Cells 0-2 (0-2) /HPF Calcium Oxalate Crystal Present Urine Bacteria None Seen (None Seen) Hyaline Casts 0-2 (0-2) /LPF Influenza Type A (PCR) NEGATIVE (Negative) Influenza Type B (PCR) NEGATIVE (Negative) RSV RNA Qual (PCR) NEGATIVE (Negative) SARS-CoV-2 RNA (RT-PCR) NEGATIVE (Negative) Independent Interpretation I performed an independent interpretation of an: Ultrasound Interpretation: My interpretation is in agreement with the radiologist's impression of this imaging study. L EXAMINATION: US ABDOMEN LIMITED CLINICAL INFORMATION: Right upper quadrant abdominal pain.. COMPARISON: None available. TECHNIQUE: Real-time imaging of the right upper quadrant abdominal viscera. FINDINGS: PANCREAS: No peripancreatic fluid collections. LIVER: Liver measures 14 cm. Nodular surface. Increased echotexture. No solid or cystic lesion detected by the senior cytogenetic technologist. No intrahepatic biliary ductal dilatation. GALLBLADDER: Fluid-filled and prominent. No pericholecystic fluid collection or gallbladder wall thickening. COMMON BILE DUCT: 4 mm. FREE FLUID: None. US/US abdomen limited IMPRESSION: Hepatocellular disease/cirrhosis. No cholelithiasis. No ascites. Questionable hydrops gallbladder. Electronically signed by: Jan Melendez MD 12/13/2024 12:33 PM EST Dictated By: Jan Pierce MD Signed By: Electronically signed by Jan Mercado MD 12/13/24 1233 Radiology Impression Discussion of test interpretation with radiology: I have reviewed the radiologist's reading. Medications Administered Generic Name Dose Route Start Last Admin Trade Name Freq PRN Reason Stop Dose Admin Lactated Ringer's 1,000 mls @ 100 mls/hr 12/13/24 14:30 12/13/24 14:43 Lr IVCONT 100 mls/hr .Q10H LU Administration Morphine Sulfate 3 mg 12/13/24 14:23 12/13/24 14:44 Morphine Sulfate 4 Mg/Ml Cartridge IVPUSH 3 mg Q4H PRN Administration Pain, Severe (Pain Scale 7-10) Protocol Sodium Chloride 3 ml 12/13/24 16:00 12/13/24 15:46 0.9 % Sodium Chloride Flush 3 Ml Syringe IVFLUSH Not Given QSHIFT LU Discontinued Medications Generic Name Dose Route Start Last Admin Trade Name Freq PRN Reason Stop Dose Admin Magnesium Sulfate/Dextrose 1 gm in 100 mls @ 100 mls/hr 12/13/24 13:19 12/13/24 14:44 Magnesium Sulfate/D5w IV 12/13/24 14:18 100 mls/hr ONCE ONE Administration Lactulose 30 gm 12/13/24 14:26 12/13/24 14:43 Lactulose 20 Gm/30 Ml Solution PO 12/13/24 14:27 30 gm ONCE ONE Administration Lorazepam 2 mg 12/13/24 12:52 12/13/24 13:00 Lorazepam 1 Mg Tablet PO 12/13/24 12:53 2 mg ONCE ONE Administration Phenobarbital Sodium 204 mg 12/13/24 15:00 12/13/24 15:20 Phenobarbital Sodium 130 Mg/Ml Im Once IM 12/13/24 15:01 204 mg ONCE ONE Administration Critical Care Time Critical Care Time Critical Care Time: Yes Total Critical Care Time: 36 Attestation: I spent 36 minutes of Critical Care Time with this patient. This does not include time spent on separately reported billable procedures. Discharge Plan Discharge Clinical Impression: Increased ammonia level, Abdominal pain, RUQ Patient Disposition: Admitted As Inpatient
[2024-12-13 12:54] VITALS: BP 116/68; PULSE 82; RESP 16; TEMP 36.6; O2SAT 97
[2024-12-13] MEDS: LORazepam 1 MG TABLET 2 MG PO (13:00)
[2024-12-13 13:12] LABS: Magnesium 1.5 mg/dL (1.6-2.6)
--- NOTE | 2024-12-13 14:27 | P.HPHOSP_ITS ---
History of Present Illness Date of Service: 12/13/24 Chief Complaint: Right upper quadrant abdominal pain, weight gain 34-year-old gentleman with past medical history significant for substance use disorder, continued to drink 2 pt of alcohol daily, last drink 2 days ago, history of IV drug use stop using few years ago, currently on methadone, history of hepatitis-C untreated, decompensated liver cirrhosis, restless leg syndrome, anxiety depression with prior history of seizure in the setting of possible alcohol and benzodiazepine withdrawal requiring admission at [facility] in 03/29/2024, presented to [facility] today due to right upper quadrant abdominal pain weight gain and abdominal bloating, without associated fever chills, no nausea, no vomiting, no lightheadedness or dizziness, no shortness of breath, has chronic leg edema with no worsening, patient has no primary care physician therefore not using lactulose . Workup in the ED showed magnesium 1.5, ammonia 123, albumin 3, stable renal function, electrolytes and hematocrit, influenza, RSV and SARS negative, right upper quadrant abdominal ultrasound showed hepatocellular disease/cirrhosis, no gallstone, no ascites, questionable hydrops gallbladder, total bili 2.5, direct bili 1.5, AST 137, ALT 54, alk-phos 253, chronically elevated due to underlying liver disease and continued use of alcohol. Patient is now being admitted to hospital due to right upper quadrant abdominal pain with concern for hydrops gallbladder, hypo magnesemia and high likelihood of alcohol withdrawal with history of heavy alcohol use. Review of Systems 2 Review of Systems: General no headache no dizziness no fever chills. CVS no chest pain, no palpitation. Respiratory no cough no ob Gastrointestinal no nausea no vomiting, right upper quadrant abdominal pain no urgency, no frequency Musculoskeletal no pain, chronic lower extremity edema All other system reviewed and are negative. [facility] Medical History Opiate use Social History Household Members: Family Housing: House Do you presently have visiting nurse or other home services: No Alcohol intake: current Alcohol intake frequency: former alcohol drinker Alcohol type: hard liquor Patient Tobacco Use Status: Never used Tobacco Smoked in Last 30 Days: Yes e-Cigarette/Vaping Use: Currently Using Patient Interested in Nicotine Replacement: Yes Patient Given Instructions on How to Stop Smoking: Yes Date Education Initiated: 12/14/24 Use of substances other than those prescribed or required for medical reasons: No Any prior treatment program specific to substance use: Yes (prior substance abuse, clean 4 years) Advance Directives: No Advance Directives Information Provided: No Do you have a plan to hurt others: No Plan Recently lost weight without trying: No Nutrition Risks: No Nutritional Risk service: No Meds Allergies Allergy/AdvReac Type Severity Reaction Status Date / Time fish derived [fish] Allergy Anaphylaxis Verified 12/13/24 09:00 shellfish derived Allergy Anaphylaxis Verified 12/13/24 09:00 Active Medications: Current Medications Acetaminophen (Acetaminophen 325 Mg Tablet) 650 mg PO Q6H PRN PRN Reason: Pain, Mild 1-3,fever,headache Benzonatate (Benzonatate 100 Mg Capsule) 100 mg PO TID PRN PRN Reason: Cough Calcium Carbonate (Calcium Carbonate 750 Mg Tab.Chew) 750 mg PO Q4H PRN PRN Reason: Heartburn Lactated Ringer's (Lr) 1,000 mls @ 100 mls/hr IVCONT .Q10H LU Magnesium Hydroxide (Milk Of Magnesia 30 Ml Oral.Susp) 30 ml PO DAILY PRN PRN Reason: Constipation Melatonin (Melatonin 3 Mg Tablet) 6 mg PO BEDTIME PRN PRN Reason: Insomnia Morphine Sulfate (Morphine Sulfate 4 Mg/Ml Cartridge) 3 mg IVPUSH Q4H PRN; Protocol PRN Reason: Pain, Severe (Pain Scale 7-10) Ondansetron HCl (Ondansetron Hcl 4 Mg/2 Ml Vial) 4 mg IVPUSH Q8H PRN PRN Reason: Nausea and Vomiting Pharmacy Consult (Consult Rx Etoh Phenob Im/Po) 1 each MISCELLANE ONCE PRN; Protocol PRN Reason: Consult order Sodium Chloride (0.9 % Sodium Chloride Flush 3 Ml Syringe) 3 ml IVFLUSH QSHIFT [facility] Home Medications ?Medication ?Instructions ?Recorded ?Confirmed ?Last Taken ?Type methadone 10 mg/mL oral concentrate 85 mg PO DAILY 03/03/24 12/13/24 12/13/24 History aripiprazole 15 mg tablet 15 mg DAILY 12/13/24 12/13/24 12/12/24 History buspirone 5 mg tablet 10 mg PO BID anxiety 12/13/24 12/13/24 12/12/24 History clonidine HCl 0.1 mg tablet 0.1 mg PO BID 12/13/24 12/13/24 12/12/24 History folic acid 1 mg tablet 1 mg PO DAILY 12/13/24 12/13/24 12/12/24 History gabapentin 800 mg tablet 800 mg PO TID 12/13/24 12/13/24 12/12/24 History lorazepam 0.5 mg tablet 0.5 mg BID 12/13/24 12/13/24 12/12/24 History melatonin 5 mg tablet 5 mg PO BEDTIME 12/13/24 12/13/24 12/12/24 History multivitamin-iron 9 mg-folic acid 1 tab PO DAILY 12/13/24 12/13/24 12/12/24 History 400 mcg-calcium and minerals tablet (Therapeutic-M) rifaximin 550 mg tablet (Xifaxan) 550 mg PO BID 12/13/24 12/13/24 12/12/24 History sertraline 100 mg tablet 100 mg PO DAILY 12/13/24 12/13/24 12/12/24 History thiamine HCl (vitamin B1) 100 mg 200 mg PO DAILY 12/13/24 12/13/24 12/12/24 History tablet Physical Exam 2 Vital Signs and Narrative: Vital Signs: Last Vital Signs Temp 97.8 F 12/13/24 12:54 Pulse 82 12/13/24 12:54 Resp 16 12/13/24 12:54 BP 116/68 12/13/24 12:54 Pulse Ox 97 12/13/24 12:54 O2 Del Method Room Air 12/13/24 12:54 BMI result Body Mass Index 38.3 Const: Other: General in mild distress due to abdominal pain. Unable to appreciate icterus Neck no JVD. CVS regular rate rhythm, Respiratory lungs clear to auscultation, no respiratory distress, no wheeze, no rhonchi. Gastrointestinal abdomen soft, distended, right upper quadrant tenderness to palpation, bowel sounds audible, no rigidity. Extremities bilateral edema Neuro non focal , bilateral hand tremors Psych appropriate affect/anxious Results Labs 12/14/24 12:43 12/14/24 12:43 Labs: Laboratory Results - last 24 hr 12/13/24 09:11 MCV 89.5 MCH 30.8 MCHC 34.4 RDW 15.8 Plt Count 73 L D MPV 10.0 Immature Gran % (Auto) 0.2 Neut % (Auto) 61.5 Lymph % (Auto) 30.3 [place] % (Auto) 6.5 Eos % (Auto) 1.3 Baso % (Auto) 0.2 Lymph # (Auto) 1.4 [place] # (Auto) 0.3 Eos # (Auto) 0.1 Baso # (Auto) 0.0 Abs Immat Gran (auto) 0.01 Absolute Neuts (auto) 2.9 Absolute Nucleated RBC 0.000 Nucleated RBC % (auto) 0.0 Anion Gap 12 Estim Creat Clear Calc 161.1 Estimated GFR > 60 Random Glucose 116 H Calcium 8.1 L D Magnesium 1.5 L Total Bilirubin 2.5 H Direct Bilirubin 1.5 H AST 137 H ALT 54 H Alkaline Phosphatase 253 H Ammonia 123 H Total Protein 7.5 Albumin 3.0 L Urine Color Dark Yellow Urine Appearance Clear Urine pH 6.5 Ur Specific [place] 1.020 Urine Protein Negative Urine Glucose (UA) Negative Urine Ketones Trace Urine Blood Negative Urine Nitrite Negative Ur Leukocyte Esterase Trace H Urine RBC 0-2 Urine WBC 0-5 Ur Squamous Epith Cells 0-2 Calcium Oxalate Crystal Present Urine Bacteria None Seen Hyaline Casts 0-2 Influenza Type A (PCR) NEGATIVE Influenza Type B (PCR) NEGATIVE RSV RNA Qual (PCR) NEGATIVE SARS-CoV-2 RNA (RT-PCR) NEGATIVE Imaging Radiologist's Impressions: Impressions Abdomen Ultrasound 12/13/24 11:59 IMPRESSION: Hepatocellular disease/cirrhosis. No cholelithiasis. No ascites. Questionable hydrops gallbladder. Electronically signed by: Jan Melendez MD 12/13/2024 12:33 PM [facility] Assessment and Plan (1) Abdominal pain, RUQ: Status: Acute (2) Increased ammonia level: Status: Acute (3) Alcohol abuse: Status: Acute (4) Cirrhosis: Status: Acute (5) Substance abuse: Status: Acute Plan 34-year-old gentleman with past medical history significant for hepatitis-C untreated, decompensated liver cirrhosis, restless leg syndrome, anxiety and depression , patient continued to drink 2 pt of alcohol daily, presented to [facility] due to right upper quadrant abdominal pain of few days' duration, as well as weight gain, abdominal bloating and concern about alcohol withdrawal. Right upper quadrant abdominal pain Abdominal ultrasound concerning for hydrops gallbladder, no ascites, elevated LFTs but seems chronic No leukocytosis, no fevers Seen by General surgery they recommend HIDA scan and GI consult IV analgesics/clear liquids Alcohol use disorder with high likelihood of withdrawal Last alcohol intake 2 days ago Phenobarb protocol, thiamine, folic acid Addiction consult Substance use disorder Continue methadone Hypo magnesemia replace and follow labs likely due to poor nutrition and alcohol use Hyperammonemia no acute encephalopathy not using lactulose has no primary care physician to prescribed meds, place on lactulose, follow ammonia level Decompensated liver cirrhosis/hep C untreated/chronic thrombocytopenia recommend outpatient GI follow up, chronically elevated LFTs. Follow labs Mood disorder resume home medications. Med rec pending. DVT prophylaxis compression boots due to low platelet. Full code In my clinical decision patient will require 2 night inpatient hospitalization for alcohol use disorder with likely withdrawal on phenobarb protocol, expert consultation for hydrops gallbladder. Quality Stroke Does the patient have a stroke diagnosis?: No VTE Prior VTE?: No VTE Risk Level:: Medical - moderate - high VTE Device Contraindication: N/A - Device Ordered VTE Drug Contraindication: Treatment Not Indicated
[2024-12-13] MEDS: Lactated Ringers 1,000 ML 100 ML IVCONT (14:43)
[2024-12-13] MEDS: Lactulose 20 GM/30 ML SOLUTION 30 GM PO (14:43)
[2024-12-13] MEDS: Magnesium Sulfate/D5W 1 GM/100 ML PIGGYBACK IV (14:44)
[2024-12-13] MEDS: Morphine Sulfate 4 MG/ML CARTRIDGE 3 MG IVPUSH ×2 (14:44→20:04)
[2024-12-13 15:14] VITALS: BP 116/67; PULSE 91; RESP 16; TEMP 36.8; O2SAT 97
[2024-12-13 15:19] VITALS: BP 113/55; PULSE 88; RESP 16; O2SAT 98
[2024-12-13] MEDS: PHENobarbitaL sodium 130 MG/ML IM ONCE 204 MG IM (15:20)
--- NOTE | 2024-12-13 15:28 | PHA.MEDREC ---
Addendum entered by Teresita Montero RPh 12/13/24 16:01: [facility] REVIEWED Original Note: Pharmacy Consult ? Medication Reconciliation Pharmacy has completed the medication reconciliation. Spoke with patient to confirm medications. He reports 85 mg of methadone, had a take home bottle this morning from [facility]. He reports he has mirtazepine and quetiapine rx but he had not started taking these. Leaving these off of med list. He does not recognize tamsulosin, he does not think he is taking it anymore. He reports 5 mg of melatonin every night and clonidine is bid. Patient reports he had his medications yesterday.
--- NOTE | 2024-12-13 15:47 | PM.CNGS ---
History of Present Illness Consult details Consult date: 12/13/24 Narrative: Patient was a 34-year-old male with a significant plethora of comorbidities and intercurrent medical problems as well as longstanding history of substance abuse as well as alcohol abuse, hepatitis-C, decompensated cirrhosis, just to name a few. Today's complaints included abdominal bloating, swelling, and right upper quadrant discomfort. Patient typically moves his bowels relatively regularly. Last bowel movement was 3 days ago. He denies any other GI issues or complaints. Patient has been noncompliant with his medications regarding the cirrhosis and has not been taking his lactulose or spironolactone. This has been for several weeks time if not longer. Sonogram of the abdomen demonstrated question of hydrops but no cholelithiasis. Patient was significant cirrhosis with no ascites. Chart was reviewed and patient evaluated PMFSH Past Medical History Medical History Opiate use Social History Social History Alcohol intake: current Alcohol intake frequency: former alcohol drinker Alcohol type: hard liquor Patient Tobacco Use Status: Tobacco use Unknown Smoked in Last 30 Days: No Any prior treatment program specific to substance use: Yes (prior substance abuse, clean 4 years) Advance Directives: No Advance Directives Information Provided: No Nutrition Risks: No Nutritional Risk Meds Allergies Allergy/AdvReac Type Severity Reaction Status Date / Time fish derived [fish] Allergy Anaphylaxis Verified 12/13/24 09:00 shellfish derived Allergy Anaphylaxis Verified 12/13/24 09:00 Active Medications: Current Medications Acetaminophen (Acetaminophen 325 Mg Tablet) 650 mg PO Q6H PRN PRN Reason: Pain, Mild 1-3,fever,headache Benzonatate (Benzonatate 100 Mg Capsule) 100 mg PO TID PRN PRN Reason: Cough Calcium Carbonate (Calcium Carbonate 750 Mg Tab.Chew) 750 mg PO Q4H PRN PRN Reason: Heartburn Lactated Ringer's (Lr) 1,000 mls @ 100 mls/hr IVCONT .Q10H LU Last Admin: 12/13/24 14:43 Dose: 100 mls/hr Magnesium Hydroxide (Milk Of Magnesia 30 Ml Oral.Susp) 30 ml PO DAILY PRN PRN Reason: Constipation Melatonin (Melatonin 3 Mg Tablet) 6 mg PO BEDTIME PRN PRN Reason: Insomnia Morphine Sulfate (Morphine Sulfate 4 Mg/Ml Cartridge) 3 mg IVPUSH Q4H PRN; Protocol PRN Reason: Pain, Severe (Pain Scale 7-10) Last Admin: 12/13/24 14:44 Dose: 3 mg Ondansetron HCl (Ondansetron Hcl 4 Mg/2 Ml Vial) 4 mg IVPUSH Q8H PRN PRN Reason: Nausea and Vomiting Pharmacy Consult (Consult Rx Etoh Phenob Im/Po) 1 each MISCELLANE ONCE PRN; Protocol PRN Reason: Consult order Phenobarbital (Phenobarbital 15 Mg Tablet) 45 mg PO BID [facility] Stop: 12/15/24 21:01 Phenobarbital (Phenobarbital 30 Mg Tablet) 30 mg PO BID [facility] Stop: 12/17/24 21:01 Phenobarbital (Phenobarbital 30 Mg Tablet) 30 mg PO DAILY [facility] Stop: 12/19/24 09:01 Phenobarbital Sodium (Phenobarbital Sodium 65 Mg/Ml Vial Q3hx2) 153 mg IM Q3H [facility] Stop: 12/13/24 21:01 Sodium Chloride (0.9 % Sodium Chloride Flush 3 Ml Syringe) 3 ml IVFLUSH QSHIFT [facility] Last Admin: 12/13/24 15:46 Dose: Not Given Home Medications ?Medication ?Instructions ?Recorded ?Confirmed ?Last Taken ?Type methadone 10 mg/mL oral concentrate 85 mg PO DAILY 03/03/24 12/13/24 12/13/24 History aripiprazole 15 mg tablet 15 mg DAILY 12/13/24 12/13/24 12/12/24 History buspirone 5 mg tablet 10 mg PO BID anxiety 12/13/24 12/13/24 12/12/24 History clonidine HCl 0.1 mg tablet 0.1 mg PO BID 12/13/24 12/13/24 12/12/24 History folic acid 1 mg tablet 1 mg PO DAILY 12/13/24 12/13/24 12/12/24 History gabapentin 800 mg tablet 800 mg PO TID 12/13/24 12/13/24 12/12/24 History lorazepam 0.5 mg tablet 0.5 mg BID 12/13/24 12/13/24 12/12/24 History melatonin 5 mg tablet 5 mg PO BEDTIME 12/13/24 12/13/24 12/12/24 History multivitamin-iron 9 mg-folic acid 1 tab PO DAILY 12/13/24 12/13/24 12/12/24 History 400 mcg-calcium and minerals tablet (Therapeutic-M) rifaximin 550 mg tablet (Xifaxan) 550 mg PO BID 12/13/24 12/13/24 12/12/24 History sertraline 100 mg tablet 100 mg PO DAILY 12/13/24 12/13/24 12/12/24 History thiamine HCl (vitamin B1) 100 mg 200 mg PO DAILY 12/13/24 12/13/24 12/12/24 History tablet Physical Exam Vital Signs: Vital Signs: Last Vital Signs Temp 98.2 F 12/13/24 15:14 Pulse 88 12/13/24 15:19 Resp 16 12/13/24 15:19 BP 113/55 L 12/13/24 15:19 Pulse Ox 98 12/13/24 15:19 O2 Del Method Room Air 12/13/24 15:19 BMI result Body Mass Index 38.3 Const: Other: Patient laying in bed able to converse. No acute distress. Chest: Other: Chest breath sounds bilaterally. GI: Other: Abdomen is very corpulent distended. Mild right upper quadrant tenderness but no evidence of any guarding, rebound, or rigidity. Extrem: Other: Patient w had bilateral appreciable pitting edema. Results Labs 12/13/24 09:11 12/13/24 09:11 Labs: Abnormal lab results 12/13/24 Range/Units 09:11 RBC 4.48 L (4.60-5.80) X10*6/uL Hgb 13.8 L (14.0-18.0) g/dl Hct 40.1 L (42.0-52.0) % Plt Count 73 L D (160-400) X10*3/uL BUN 5 L (9-16) mg/dL Random Glucose 116 H (60-115) mg/dL Calcium 8.1 L D (8.4-10.2) mg/dL Magnesium 1.5 L (1.6-2.6) mg/dL Total Bilirubin 2.5 H (0.0-1.0) mg/dL Direct Bilirubin 1.5 H (0.0-0.5) mg/dL AST 137 H (5-37) U/L ALT 54 H (0-40) U/L Alkaline Phosphatase 253 H (39-117) U/L Ammonia 123 H (13-55) umol/L Albumin 3.0 L (3.5-5.0) g/dL Ur Leukocyte Esterase Trace H (Negative) Short CBC 12/13/24 Range/Units 09:11 WBC 4.8 (4.8-10.8) X10*3/uL Hgb 13.8 L (14.0-18.0) g/dl Hct 40.1 L (42.0-52.0) % Plt Count 73 L D (160-400) X10*3/uL BMP 12/13/24 09:11 Sodium 138 Potassium 3.5 Chloride 105 Carbon Dioxide 25 BUN 5 L Creatinine 0.75 Calcium 8.1 L D Liver Function 12/13/24 Range/Units 09:11 Total Bilirubin 2.5 H (0.0-1.0) mg/dL Direct Bilirubin 1.5 H (0.0-0.5) mg/dL AST 137 H (5-37) U/L ALT 54 H (0-40) U/L Alkaline Phosphatase 253 H (39-117) U/L Albumin 3.0 L (3.5-5.0) g/dL Urine 12/13/24 Range/Units 09:11 Urine Color Dark Yellow Urine Appearance Clear Urine pH 6.5 (5.0-9.0) Ur Specific [place] 1.020 (1.005-1.025) Urine Protein Negative (Neg-Trace) mg/dL Urine Glucose (UA) Negative (Negative) mg/dL All other labs normal. Assessment and Plan (1) Cirrhosis: Status: Acute (2) Substance abuse: Status: Acute (3) Alcohol abuse: Status: Acute (4) Right upper quadrant abdominal pain: Status: Acute Plan At present, patient is an upper quadrant symptoms may be related to his underlying liver disease/hepatitis. He is a suboptimal surgical candidate secondary to his significant intercurrent comorbidities. If there is concern that there is a gallbladder hydrops issue, HIDA scan could be obtained and if positive, IR gallbladder drain placement would be recommended. Consider GI consult as well To follow with you. Procedures Date of Service Date of Service: 12/14/24
[2024-12-13 16:00] VITALS: BP 113/55; PULSE 88; RESP 16; O2SAT 98
[2024-12-13 17:31] LABS: Amphetamine Screen Urine Not Detected (Not Detect); Barbiturates, Urine Not Detected (Not Detect); Benzodiazepines Screen Urine Not Detected (Not Detect); Buprenorphine Scr Not Detected (Not Detect); Cannabinoid Screen Urine Not Detected (Not Detect); Cocaine Screen Urine Not Detected (Not Detect); Fentanyl, urine Not Detected (Not Detect); Methadone Screen, Urine Positive (Not Detect); Opiate Screen Urine POSITIVE (Not Detect); Oxycodone Screen Urine Not Detected (Not Detect); Phencyclidine Screen Urine Not Detected (Not Detect)
[2024-12-13] MEDS: PHENobarbitaL sodium 65 MG/ML VIAL Q3Hx2 153 MG IM ×2 (19:07→22:16)
[2024-12-13 20:26] VITALS: BP 116/69; PULSE 82; RESP 16; TEMP 36.8; O2SAT 97
[2024-12-13] MEDS: LORazepam 0.5 MG TABLET PO (22:15)
[2024-12-13] MEDS: busPIRone HCl 10 MG TABLET PO (22:15)
[2024-12-13] MEDS: Gabapentin 400 MG CAPSULE 800 MG PO (22:15)
[2024-12-13] MEDS: LORazepam 2 MG/ML VIAL 1 MG IVPUSH (22:38)
[2024-12-14] VITALS (7 sets, daily range): BP systolic 105–163; BP diastolic 62–94; PULSE 76–100; RESP 14–20; TEMP 36.7–37.3; O2SAT 94–97; BMI 39.0
--- NOTE | 2024-12-14 | MHC.EDTECH ---
This pct assumed care of Patient at 2300 ,Patient sleeping ,vitals taken ,no apparent distress noted ,Plan of care continue .
[2024-12-14] MEDS: Morphine Sulfate 4 MG/ML CARTRIDGE IVPUSH ×5 (01:55→23:15)
--- NOTE | 2024-12-14 02:19 | MHC.EDTECH ---
0200 rounding done ,Patient sleeping ,no apparent distress noted ,Plan of care continue .
[2024-12-14] MEDS: Lactated Ringers 1,000 ML 100 ML IVCONT ×2 (02:49→15:03)
--- NOTE | 2024-12-14 06:36 | MHC.EDTECH ---
DIANE Clark aware that Patient refused morning labs .
--- NOTE | 2024-12-14 06:40 | PC.NURSE ---
per phlebotomy pt refused morning labs
--- NOTE | 2024-12-14 07:46 | PC.NURSE ---
called this RN into room, right forearm IV had come out. provided with linen for bed change. patient states difficult IV stick and previously needing US guided IV placement. this RN attempted IV unsuccessfully.
[2024-12-14] MEDS: PHENobarbitaL 15 MG TABLET 45 MG PO ×2 (08:18→20:08)
[2024-12-14] MEDS: Folic Acid 1 MG TABLET PO (08:18)
[2024-12-14] MEDS: Multivitamin TABLET 1 TAB PO (08:19)
[2024-12-14] MEDS: Thiamine HCL 100 MG TABLET 200 MG PO (08:19)
[2024-12-14] MEDS: LORazepam 0.5 MG TABLET PO (08:19)
--- NOTE | 2024-12-14 08:19 | PM.GICN ---
History of Present Illness Data of Consult Service Date: 12/14/24 Requesting physician: Juan Luis Ramos Primary Care Provider: Unknown Physician HPI Reason for consult: Abdominal pain 34 YM with substance use disorder, continued to drink 2 pt of alcohol daily, last drink 2 days ago, history of IV drug use stop using few years ago (on methadone), history of hepatitis-C untreated, decompensated liver cirrhosis, restless leg syndrome, anxiety depression seen at [facility] on 12/13/24 with right upper quadrant abdominal pain weight gain and abdominal bloating. 03/29/24 Pt was admitted to [facility] with seizure in the setting of possible alcohol and benzodiazepine withdrawal. Pt complains of abdominal pain with distension for the past 1 month. He denies fever chills, no nausea, no vomiting, lightheadedness, dizziness, shortness of breath, Pt admits to wt gain of 60 to 100 lbs over the past 3 months. He has chronic leg edema with no worsening. Pt reports having an EGD 6 to 12 months ago. Pt reports he started drinking heavily (1 pint/day) 2 yrs ago after going through a bad divorce Pt has no primary care physician therefore not using lactulose . He reports a positive family hx of alcohol related liver disease in his Dad Lab evaluation in the ED showed magnesium 1.5, ammonia 123, albumin 3, stable renal function, electrolytes and hematocrit, influenza, RSV and SARS negative, LFTs were elevated with total bili 2.5, direct bili 1.5, AST 137, ALT 54, alk-phos 253, (Of note his LFTs are chronically elevated due to underlying liver disease and continued use of alcohol). Patient was admitted to [facility] with RUQ pain and concern for hydrops gallbladder, hypo magnesemia and high likelihood of alcohol withdrawal with history of heavy alcohol use Pt was seen by Dr Beauchamp and advised a HIDA scan 12/13/24 ABD US SHOWED: Hepatocellular disease/cirrhosis. No cholelithiasis. No ascites. Questionable hydrops gallbladder. Review of Systems Review of Systems: General no headache no dizziness no fever chills. CVS no chest pain, no palpitation. Respiratory no cough no ob Gastrointestinal no nausea no vomiting, right upper quadrant abdominal pain no urgency, no frequency Musculoskeletal no pain, chronic lower extremity edema All other system reviewed and are negative. [facility] Past Medical History Medical History Opiate use Social History Social History Household Members: Family Housing: House Do you presently have visiting nurse or other home services: No Alcohol intake: current Alcohol intake frequency: former alcohol drinker Alcohol type: hard liquor Comment: refuses alarms Patient Tobacco Use Status: Never used Tobacco e-Cigarette/Vaping Use: Currently Using service: No Meds Allergies Allergy/AdvReac Type Severity Reaction Status Date / Time fish derived [fish] Allergy Anaphylaxis Verified 12/13/24 09:00 shellfish derived Allergy Anaphylaxis Verified 12/13/24 09:00 Active Medications: Current Medications Acetaminophen (Acetaminophen 325 Mg Tablet) 650 mg PO Q6H PRN PRN Reason: Pain, Mild 1-3,fever,headache Aripiprazole (Aripiprazole 15 Mg Tablet) 15 mg PO DAILY [facility] Benzonatate (Benzonatate 100 Mg Capsule) 100 mg PO TID PRN PRN Reason: Cough Buspirone HCl (Buspirone Hcl 10 Mg Tablet) 10 mg PO BID [facility] Last Admin: 12/13/24 22:15 Dose: 10 mg Calcium Carbonate (Calcium Carbonate 750 Mg Tab.Chew) 750 mg PO Q4H PRN PRN Reason: Heartburn Folic Acid (Folic Acid 1 Mg Tablet) 1 mg PO DAILY [facility] Gabapentin (Gabapentin 400 Mg Capsule) 800 mg PO TID [facility] Last Admin: 12/13/24 22:15 Dose: 800 mg Lactated Ringer's (Lr) 1,000 mls @ 100 mls/hr IVCONT .Q10H [facility] Last Admin: 12/14/24 02:49 Dose: 100 mls/hr Lactulose (Lactulose 20 Gm/30 Ml Solution) 30 gm PO TID [facility] Lorazepam (Lorazepam 0.5 Mg Tablet) 0.5 mg PO BID [facility] Last Admin: 12/13/24 22:15 Dose: 0.5 mg Magnesium Hydroxide (Milk Of Magnesia 30 Ml Oral.Susp) 30 ml PO DAILY PRN PRN Reason: Constipation Melatonin (Melatonin 3 Mg Tablet) 6 mg PO BEDTIME PRN PRN Reason: Insomnia Methadone HCl (Methadone Hcl 20 Mg/2 Ml Oral.Conc) 85 mg PO DAILY [facility] Morphine Sulfate (Morphine Sulfate 4 Mg/Ml Cartridge) 4 mg IVPUSH Q4H PRN; Protocol PRN Reason: Pain, Severe (Pain Scale 7-10) Last Admin: 12/14/24 01:55 Dose: 4 mg Multivitamins/Vitamin C (Multivitamin Tablet) 1 tab PO DAILY [facility] Ondansetron HCl (Ondansetron Hcl 4 Mg/2 Ml Vial) 4 mg IVPUSH Q8H PRN PRN Reason: Nausea and Vomiting Pharmacy Consult (Consult Rx Etoh Phenob Im/Po) 1 each MISCELLANE ONCE PRN; Protocol PRN Reason: Consult order Phenobarbital (Phenobarbital 15 Mg Tablet) 45 mg PO BID [facility] Stop: 12/15/24 21:01 Phenobarbital (Phenobarbital 30 Mg Tablet) 30 mg PO BID [facility] Stop: 12/17/24 21:01 Phenobarbital (Phenobarbital 30 Mg Tablet) 30 mg PO DAILY [facility] Stop: 12/19/24 09:01 Sertraline HCl (Sertraline Hcl 100 Mg Tablet) 100 mg PO DAILY [facility] Sodium Chloride (0.9 % Sodium Chloride Flush 3 Ml Syringe) 3 ml IVFLUSH QSHIFT [facility] Last Admin: 12/14/24 07:25 Dose: Not Given Thiamine HCl (Thiamine Hcl 100 Mg Tablet) 200 mg PO DAILY [facility] Home Medications ?Medication ?Instructions ?Recorded ?Confirmed ?Last Taken ?Type methadone 10 mg/mL oral concentrate 85 mg PO DAILY 03/03/24 12/13/24 12/13/24 History aripiprazole 15 mg tablet 15 mg DAILY 12/13/24 12/13/24 12/12/24 History buspirone 5 mg tablet 10 mg PO BID anxiety 12/13/24 12/13/24 12/12/24 History clonidine HCl 0.1 mg tablet 0.1 mg PO BID 12/13/24 12/13/24 12/12/24 History folic acid 1 mg tablet 1 mg PO DAILY 12/13/24 12/13/24 12/12/24 History gabapentin 800 mg tablet 800 mg PO TID 12/13/24 12/13/24 12/12/24 History melatonin 5 mg tablet 5 mg PO BEDTIME 12/13/24 12/13/24 12/12/24 History multivitamin-iron 9 mg-folic acid 1 tab PO DAILY 12/13/24 12/13/24 12/12/24 History 400 mcg-calcium and minerals tablet (Therapeutic-M) rifaximin 550 mg tablet (Xifaxan) 550 mg PO BID 12/13/24 12/13/24 12/12/24 History sertraline 100 mg tablet 100 mg PO DAILY 12/13/24 12/13/24 12/12/24 History thiamine HCl (vitamin B1) 100 mg 200 mg PO DAILY 12/13/24 12/13/24 12/12/24 History tablet Physical Exam Vital Signs: Vital Signs: Last Vital Signs Temp 99.1 F 12/14/24 08:17 Pulse 85 12/14/24 08:17 Resp 14 12/14/24 08:17 BP 108/65 12/14/24 08:17 Pulse Ox 97 12/14/24 08:17 O2 Del Method Room Air 12/14/24 08:17 BMI result Body Mass Index 38.3 Const: General: no acute distress Nutritional Appearance: obese Orientation/consciousness: patient oriented x3 Limitations: no limitations HEENT: Head: Yes normal to inspection Ears: hearing grossly normal bilaterally Eyes: Sclerae: sclerae normal Pupils: Equal, round and reactive pupils present Neck: Neck: Yes normal visual inspection Chest: Chest palpation & inspection: normal inspection of the chest Resp: Effort & Inspection: normal respiratory effort Auscultation: clear to auscultation bilaterally Cardio: Palpation: normal PMI Rate: regular rate Rhythm: regular rhythm Heart sounds: S1 normal heart sound present, S2 normal heart sound present and no murmurs GI: Inspection: Yes distended Palpation (GI): Soft to palpation and Tenderness to palpation present (GI) (Mild RUQ tenderness without rebound) Auscultation: normal bowel sounds Rectal Exam - Male: Yes deferred Skin: General skin exam: no rashes or lesions noted Neuro: General: patient oriented x3, gait normal and moves all extremities Cranial nerves: Yes Equal, round and reactive pupils present Psych: Appearance: grossly normal Mental Status: mental status grossly normal Results Labs 12/14/24 12:43 12/14/24 12:43 Labs: Short CBC 12/13/24 Range/Units 09:11 WBC 4.8 (4.8-10.8) X10*3/uL Hgb 13.8 L (14.0-18.0) g/dl Hct 40.1 L (42.0-52.0) % Plt Count 73 L D (160-400) X10*3/uL BMP 12/13/24 09:11 Sodium 138 Potassium 3.5 Chloride 105 Carbon Dioxide 25 BUN 5 L Creatinine 0.75 Calcium 8.1 L D Liver Function 12/13/24 Range/Units 09:11 Total Bilirubin 2.5 H (0.0-1.0) mg/dL Direct Bilirubin 1.5 H (0.0-0.5) mg/dL AST 137 H (5-37) U/L ALT 54 H (0-40) U/L Alkaline Phosphatase 253 H (39-117) U/L Albumin 3.0 L (3.5-5.0) g/dL Urine 12/13/24 Range/Units 09:11 Urine Color Dark Yellow Urine Appearance Clear Urine pH 6.5 (5.0-9.0) Ur Specific [place] 1.020 (1.005-1.025) Urine Protein Negative (Neg-Trace) mg/dL Urine Glucose (UA) Negative (Negative) mg/dL Assessment and Plan (1) Abdominal pain, RUQ: Status: Acute (2) Cirrhosis: Status: Acute (3) Alcohol abuse: Status: Acute Plan 34 YM with substance use disorder, history of IV drug use (on methadone), history of hepatitis-C untreated, decompensated liver cirrhosis, restless leg syndrome, anxiety depression admitted to [facility] on 12/13/24 with right upper quadrant abdominal pain weight gain and abdominal bloating. Pt admits to wt gain of 60 to 100 lbs over the past 3 months. He has chronic leg edema with no worsening. He reports a positive family hx of alcohol related liver disease in his Dad Patient was admitted to [facility] with RUQ pain and concern for hydrops gallbladder, hypo magnesemia and high likelihood of alcohol withdrawal with history of heavy alcohol use Pt was seen by Dr Beauchamp and advised a HIDA scan Pt has ESLD due to chronic Hep C and METALD complicated by hepatic encephalopathy and GB disease (suspected Hydrops) Lab evaluation in the ED showed magnesium 1.5, ammonia 123, albumin 3, stable renal function, electrolytes and hematocrit, influenza, RSV and SARS negative, LFTs were elevated with total bili 2.5, direct bili 1.5, AST 137, ALT 54, alk-phos 253, (Of note his LFTs are chronically elevated due to underlying liver disease and continued use of alcohol). RECOMMENDATIONS: 1. Agree with IV pain medications and antiemetics 2. [facility] protocol for ETOH withdrawl 3. Await results of HIDA scan 4. If HIDA scan is negative, Abd CT scan with IV contrast for further evaluation of RUQ pain 5. Needs ETOH rehab after discharge to quit drinking 6. Needs to stop drinking before he can be treated for Hep C to ensure compliance with Hep C treatment. Procedures Date of Service Date of Service: 12/24/24
[2024-12-14] MEDS: Lactulose 20 GM/30 ML SOLUTION 30 GM PO ×2 (08:20→15:03)
[2024-12-14] MEDS: methADONE HCl 20 MG/2 ML ORAL.CONC 85 MG PO (08:25)
[2024-12-14] MEDS: busPIRone HCl 10 MG TABLET PO ×2 (11:24→20:08)
[2024-12-14] MEDS: Sertraline HCL 100 MG TABLET PO (11:24)
[2024-12-14] MEDS: ARIPiprazole 15 MG TABLET PO (11:24)
[2024-12-14] MEDS: Gabapentin 400 MG CAPSULE 800 MG PO ×3 (11:24→20:08)
--- NOTE | 2024-12-14 11:26 | MHC.CM.PN ---
CM met with Patient at bedside. Patient lives in a house with his Parents and he receives his Methadone from [facility]. Home/resume said services is Patient's goal and CM has initiated and will follow for dc planning. PCP is from [facility] in [place] (patient cannot recall the name). Parents will transport to home at time of dc.
--- NOTE | 2024-12-14 12:53 | P.PNGS_ITS ---
Subjective Subjective Date of Service: 12/14/24 Interval history: Patient's upper abdominal symptoms are the same. He is scheduled for eyes get for today. Physical Exam 2 Vital Signs: Vital Signs: Last Vital Signs Temp 98.7 F 12/14/24 11:28 Pulse 89 12/14/24 11:28 Resp 20 12/14/24 11:28 BP 153/84 H 12/14/24 11:28 Pulse Ox 96 12/14/24 11:28 O2 Del Method Room Air 12/14/24 11:28 BMI result Body Mass Index 39.0 GI: Other: Abdomen markedly distended. Mild right upper quadrant tenderness. No evidence of any guarding, rebound, or rigidity Objective Data Active Medications Acetaminophen (Acetaminophen 325 Mg Tablet) 650 mg PO Q6H PRN PRN Reason: Pain, Mild 1-3,fever,headache Albuterol Sulfate (Albuterol Sulfate 90 Mcg 8 Gm Inhaler) 2 puff INHALE RQ4H PRN PRN Reason: sob Aripiprazole (Aripiprazole 15 Mg Tablet) 15 mg PO DAILY [facility] Last Admin: 12/14/24 11:24 Dose: 15 mg Documented By: JIMMY Benzonatate (Benzonatate 100 Mg Capsule) 100 mg PO TID PRN PRN Reason: Cough Buspirone HCl (Buspirone Hcl 10 Mg Tablet) 10 mg PO BID [facility] Last Admin: 12/14/24 11:24 Dose: 10 mg Documented By: JIMMY Calcium Carbonate (Calcium Carbonate 750 Mg Tab.Chew) 750 mg PO Q4H PRN PRN Reason: Heartburn Folic Acid (Folic Acid 1 Mg Tablet) 1 mg PO DAILY [facility] Last Admin: 12/14/24 08:18 Dose: 1 mg Documented By: NAYE Gabapentin (Gabapentin 400 Mg Capsule) 800 mg PO TID [facility] Last Admin: 12/14/24 11:24 Dose: 800 mg Documented By: JIMMY Lactated Ringer's (Lr) 1,000 mls @ 100 mls/hr IVCONT .Q10H [facility] Last Admin: 12/14/24 11:31 Dose: Not Given Documented By: JIMMY Non-Admin Reason: No IV access Lactulose (Lactulose 20 Gm/30 Ml Solution) 30 gm PO TID [facility] Last Admin: 12/14/24 08:20 Dose: 30 gm Documented By: NAYE Lorazepam (Lorazepam 0.5 Mg Tablet) 0.5 mg PO BID [facility] Last Admin: 12/14/24 08:19 Dose: 0.5 mg Documented By: NAYE Magnesium Hydroxide (Milk Of Magnesia 30 Ml Oral.Susp) 30 ml PO DAILY PRN PRN Reason: Constipation Melatonin (Melatonin 3 Mg Tablet) 6 mg PO BEDTIME PRN PRN Reason: Insomnia Methadone HCl (Methadone Hcl 20 Mg/2 Ml Oral.Conc) 85 mg PO DAILY [facility] Last Admin: 12/14/24 08:25 Dose: 85 mg Documented By: NAYE Co-signed By: MALLORY Morphine Sulfate (Morphine Sulfate 4 Mg/Ml Cartridge) 4 mg IVPUSH Q4H PRN; Protocol PRN Reason: Pain, Severe (Pain Scale 7-10) Last Admin: 12/14/24 08:19 Dose: 4 mg Documented By: NAYE Multivitamins/Vitamin C (Multivitamin Tablet) 1 tab PO DAILY [facility] Last Admin: 12/14/24 08:19 Dose: 1 tab Documented By: NAYE Ondansetron HCl (Ondansetron Hcl 4 Mg/2 Ml Vial) 4 mg IVPUSH Q8H PRN PRN Reason: Nausea and Vomiting Pharmacy Consult (Consult Rx Etoh Phenob Im/Po) 1 each MISCELLANE ONCE PRN; Protocol PRN Reason: Consult order Phenobarbital (Phenobarbital 15 Mg Tablet) 45 mg PO BID [facility] Stop: 12/15/24 21:01 Last Admin: 12/14/24 08:18 Dose: 45 mg Documented By: NAYE Phenobarbital (Phenobarbital 30 Mg Tablet) 30 mg PO BID [facility] Stop: 12/17/24 21:01 Phenobarbital (Phenobarbital 30 Mg Tablet) 30 mg PO DAILY [facility] Stop: 12/19/24 09:01 Sertraline HCl (Sertraline Hcl 100 Mg Tablet) 100 mg PO DAILY [facility] Last Admin: 12/14/24 11:24 Dose: 100 mg Documented By: JIMMY Sodium Chloride (0.9 % Sodium Chloride Flush 3 Ml Syringe) 3 ml IVFLUSH QSHIFT [facility] Last Admin: 12/14/24 07:25 Dose: Not Given Documented By: NAYE Non-Admin Reason: IV Running Thiamine HCl (Thiamine Hcl 100 Mg Tablet) 200 mg PO DAILY [facility] Last Admin: 12/14/24 08:19 Dose: 200 mg Documented By: NAYE Labs 12/13/24 09:11 12/13/24 09:11 Labs: Laboratory Results - last 24 hr 12/13/24 12/13/24 09:11 17:12 Magnesium 1.5 L Urine Opiates Screen POSITIVE H Ur Buprenorphine Scrn Not Detected Ur Oxycodone Screen Not Detected Urine Methadone Screen Positive H Urine Fentanyl Screen Not Detected Ur Barbiturates Screen Not Detected Ur Phencyclidine Scrn Not Detected Ur Amphetamines Screen Not Detected U Benzodiazepines Scrn Not Detected Urine Cocaine Screen Not Detected U Marijuana (THC) Screen Not Detected Procedures Date of Service Date of Service: 12/14/24 Progress Note: A&P Assessment and plan (1) Right upper quadrant abdominal pain: Status: Acute (2) Cirrhosis: Status: Acute (3) Abdominal pain, RUQ: Status: Acute (4) Alcohol abuse: Status: Acute (5) Substance abuse: Status: Acute Plan Waiting GI consult as well as HIDA scan results. As noted in the original consult note, patient is a very suboptimal surgical candidate and should HIDA scan positive, consider IR gallbladder drainage. Time Spent With Patient Time: Total time managing care of this patient today ____ minutes. Quality Stroke Does the patient have a stroke diagnosis?: No VTE Prior VTE?: No VTE Risk Level:: Medical - moderate - high VTE Device Contraindication: N/A - Device Ordered VTE Drug Contraindication: Treatment Not Indicated
[2024-12-14 13:07] LABS: Hematocrit 39.7 % (42.0-52.0); Hemoglobin 13.4 g/dl (14.0-18.0); Mean Corpuscular HGB Conc 33.8 g/dl (31.0-36.0); Mean Corpuscular Hemoglobin 30.5 pg (27.0-33.0); Mean Corpuscular Volume 90.4 fL (80.0-98.0); Red Blood Count 4.39 X10*6/uL (4.60-5.80); Red Cell Distribution Width 15.5 % (11.0-16.0); White Blood Count 5.1 X10*3/uL (4.8-10.8)
[2024-12-14 13:08] LABS: Platelet Count 73 X10*3/uL (160-400)
[2024-12-14 13:11] LABS: Ammonia 78 umol/L (13-55)
[2024-12-14 13:21] LABS: Anion Gap 9 (12-20); Blood Urea Nitrogen 7 mg/dL (9-16); Calcium 8.4 mg/dL (8.4-10.2); Carbon Dioxide 27 mmol/L (22-29); Chloride 106 mmol/L (96-108); Creatinine Clr Calc Pharmacy 176.7; Estimated Glomerular Filt Rate > 60; Glucose Random 82 mg/dL (60-115); Magnesium 1.6 mg/dL (1.6-2.6); Potassium 3.8 mmol/L (3.3-5.1); Sodium 138 mmol/L (135-145)
[2024-12-14 13:35] LABS: Alanine Aminotransferase 50 U/L (0-40); Albumin Level 3.1 g/dL (3.5-5.0); Alkaline Phosphatase 243 U/L (39-117); Aspartate Amino Transferase 137 U/L (5-37); Bilirubin Direct 2.7 mg/dL (0.0-0.5); Bilirubin Total 4.8 mg/dL (0.0-1.0); Total Protein 7.5 g/dL (6.5-8.0)
--- NOTE | 2024-12-14 14:38 | P.PNIM_ITS ---
Subjective Subjective Date of Service: 12/15/24 Interval History: Complaining of persistent right upper quadrant abdominal pain, no nausea, no vomiting, no fevers, no chills, requesting for home inhalers, although no home inhalers documented in med list, no shortness a breath, no cough. Had 1 small bowel movement. Review of Systems All other system reviewed and are negative Physical Exam 2 Vital Signs: Vital Signs: Last Vital Signs Temp 98.7 F 12/14/24 11:28 Pulse 89 12/14/24 11:28 Resp 20 12/14/24 11:28 BP 153/84 H 12/14/24 11:28 Pulse Ox 96 12/14/24 11:28 O2 Del Method Room Air 12/14/24 11:28 BMI result Body Mass Index 39.0 Const: Other: General no acute distress Moist mucous membranes Neck no JVD. CVS regular rate rhythm, Respiratory lungs clear to auscultation, no respiratory distress, no wheeze, no rhonchi. Gastrointestinal abdomen soft, right upper quadrant tenderness to palpation, bowel sounds audible, no rigidity. Extremities no pitting edema Neuro non focal , no tremors Psych appropriate affect, less anxious Objective Data Active Medications Acetaminophen (Acetaminophen 325 Mg Tablet) 650 mg PO Q6H PRN PRN Reason: Pain, Mild 1-3,fever,headache Albuterol Sulfate (Albuterol Sulfate 90 Mcg 8 Gm Inhaler) 2 puff INHALE RQ4H PRN PRN Reason: sob Aripiprazole (Aripiprazole 15 Mg Tablet) 15 mg PO DAILY [facility] Last Admin: 12/14/24 11:24 Dose: 15 mg Documented By: JIMMY Benzonatate (Benzonatate 100 Mg Capsule) 100 mg PO TID PRN PRN Reason: Cough Buspirone HCl (Buspirone Hcl 10 Mg Tablet) 10 mg PO BID [facility] Last Admin: 12/14/24 11:24 Dose: 10 mg Documented By: JIMMY Calcium Carbonate (Calcium Carbonate 750 Mg Tab.Chew) 750 mg PO Q4H PRN PRN Reason: Heartburn Folic Acid (Folic Acid 1 Mg Tablet) 1 mg PO DAILY [facility] Last Admin: 12/14/24 08:18 Dose: 1 mg Documented By: NAYE Gabapentin (Gabapentin 400 Mg Capsule) 800 mg PO TID [facility] Last Admin: 12/14/24 11:24 Dose: 800 mg Documented By: JIMMY Lactated Ringer's (Lr) 1,000 mls @ 100 mls/hr IVCONT .Q10H [facility] Last Admin: 12/14/24 11:31 Dose: Not Given Documented By: JIMMY Non-Admin Reason: No IV access Lactulose (Lactulose 20 Gm/30 Ml Solution) 30 gm PO TID [facility] Last Admin: 12/14/24 08:20 Dose: 30 gm Documented By: NAYE Lorazepam (Lorazepam 0.5 Mg Tablet) 0.5 mg PO BID [facility] Last Admin: 12/14/24 08:19 Dose: 0.5 mg Documented By: NAYE Magnesium Hydroxide (Milk Of Magnesia 30 Ml Oral.Susp) 30 ml PO DAILY PRN PRN Reason: Constipation Melatonin (Melatonin 3 Mg Tablet) 6 mg PO BEDTIME PRN PRN Reason: Insomnia Methadone HCl (Methadone Hcl 20 Mg/2 Ml Oral.Conc) 85 mg PO DAILY [facility] Last Admin: 12/14/24 08:25 Dose: 85 mg Documented By: NAYE Co-signed By: MALLORY Morphine Sulfate (Morphine Sulfate 4 Mg/Ml Cartridge) 4 mg IVPUSH Q4H PRN; Protocol PRN Reason: Pain, Severe (Pain Scale 7-10) Last Admin: 12/14/24 12:54 Dose: 4 mg Documented By: JIMMY Multivitamins/Vitamin C (Multivitamin Tablet) 1 tab PO DAILY [facility] Last Admin: 12/14/24 08:19 Dose: 1 tab Documented By: NAYE Ondansetron HCl (Ondansetron Hcl 4 Mg/2 Ml Vial) 4 mg IVPUSH Q8H PRN PRN Reason: Nausea and Vomiting Pharmacy Consult (Consult Rx Etoh Phenob Im/Po) 1 each MISCELLANE ONCE PRN; Protocol PRN Reason: Consult order Phenobarbital (Phenobarbital 15 Mg Tablet) 45 mg PO BID [facility] Stop: 12/15/24 21:01 Last Admin: 12/14/24 08:18 Dose: 45 mg Documented By: NAYE Phenobarbital (Phenobarbital 30 Mg Tablet) 30 mg PO BID [facility] Stop: 12/17/24 21:01 Phenobarbital (Phenobarbital 30 Mg Tablet) 30 mg PO DAILY [facility] Stop: 12/19/24 09:01 Sertraline HCl (Sertraline Hcl 100 Mg Tablet) 100 mg PO DAILY [facility] Last Admin: 12/14/24 11:24 Dose: 100 mg Documented By: JIMMY Sodium Chloride (0.9 % Sodium Chloride Flush 3 Ml Syringe) 3 ml IVFLUSH QSHIFT [facility] Last Admin: 12/14/24 07:25 Dose: Not Given Documented By: NAYE Non-Admin Reason: IV Running Thiamine HCl (Thiamine Hcl 100 Mg Tablet) 200 mg PO DAILY [facility] Last Admin: 12/14/24 08:19 Dose: 200 mg Documented By: NAYE Labs 12/14/24 12:43 12/14/24 12:43 Labs: Laboratory Results - last 24 hr 12/13/24 12/14/24 17:12 12:43 MCV 90.4 MCH 30.5 MCHC 33.8 RDW 15.5 Plt Count 73 L MPV 10.0 Absolute Nucleated RBC 0.000 Nucleated RBC % (auto) 0.0 Anion Gap 9 L Estim Creat Clear Calc 176.7 Estimated GFR > 60 Random Glucose 82 Calcium 8.4 Magnesium 1.6 Total Bilirubin 4.8 H Direct Bilirubin 2.7 H AST 137 H ALT 50 H Alkaline Phosphatase 243 H Ammonia 78 H Total Protein 7.5 Albumin 3.1 L Urine Opiates Screen POSITIVE H Ur Buprenorphine Scrn Not Detected Ur Oxycodone Screen Not Detected Urine Methadone Screen Positive H Urine Fentanyl Screen Not Detected Ur Barbiturates Screen Not Detected Ur Phencyclidine Scrn Not Detected Ur Amphetamines Screen Not Detected U Benzodiazepines Scrn Not Detected Urine Cocaine Screen Not Detected U Marijuana (THC) Screen Not Detected Assessment and Plan (1) Abdominal pain, RUQ: Status: Acute (2) Increased ammonia level: Status: Acute (3) Right upper quadrant abdominal pain: Status: Acute (4) Alcohol abuse: Status: Acute (5) Substance abuse: Status: Acute (6) Cirrhosis: Status: Acute Plan 34-year-old gentleman with past medical history significant for hepatitis-C untreated, decompensated liver cirrhosis, restless leg syndrome, anxiety and depression , patient continued to drink 2 pt of alcohol daily, presented to [facility] due to right upper quadrant abdominal pain of few days' duration, as well as weight gain, abdominal bloating and concern about alcohol withdrawal. Right upper quadrant abdominal pain Abdominal ultrasound concerning for hydrops gallbladder, no ascites, elevated LFTs with worsening of total and direct bili likely mild underlying alcoholic hepatitis No leukocytosis, no fevers Seen by General surgery they recommend HIDA scan and GI consult HIDA showed no obstruction of cystic duct Seen by GI they recommend CT abdomen with IV contrast Continue supportive care Alcohol use disorder with high likelihood of withdrawal Phenobarb protocol, thiamine, folic acid Strongly recommend to abstain from alcohol Addiction consult Substance use disorder U tox positive for opiates and methadone, Continue methadone Addiction consult Hypo magnesemia repleted Hyperammonemia no acute encephalopathy not using lactulose has no primary care physician to prescrib meds, place on lactulose, ammonia trending down Decompensated liver cirrhosis/hep C untreated/chronic thrombocytopenia recommend outpatient GI follow up, chronically elevated LFTs. Follow labs Mood disorder resume home medications. DVT prophylaxis compression boots due to low platelet. Full code In my clinical decision patient will require continued inpatient hospitalization for alcohol use disorder with likely withdrawal on phenobarb protocol, cirrhosis with elevated LFTs Quality Stroke Does the patient have a stroke diagnosis?: No VTE Prior VTE?: No VTE Risk Level:: Medical - moderate - high VTE Device Contraindication: N/A - Device Ordered VTE Drug Contraindication: Treatment Not Indicated
[2024-12-14] MEDS: iohexoL 350 MG/ML 100 ML INFUS..BTL IV (18:00)
[2024-12-14] MEDS: LORazepam 1 MG TABLET PO (20:08)
[2024-12-14] MEDS: 0.9 % Sodium Chloride Flush 3 ML SYRINGE IVFLUSH (20:09)
[2024-12-14] MEDS: Nicotine Polacrilex Lozenge 2 MG LOZENGE BUCCAL (23:59)
[2024-12-15] MEDS: Morphine Sulfate 4 MG/ML CARTRIDGE IVPUSH ×4 (03:16→15:42)
[2024-12-15] MEDS: Nicotine Polacrilex Lozenge 2 MG LOZENGE BUCCAL ×2 (03:38→23:54)
[2024-12-15 04:00] VITALS: BP 120/73; PULSE 101; RESP 16; TEMP 36.7; O2SAT 94
[2024-12-15] MEDS: HYDROmorphone HCl 1 MG/ML SYRINGE IVPUSH (05:06)
[2024-12-15 07:31] VITALS: BP 130/72; PULSE 81; RESP 18; TEMP 36.7; O2SAT 95
[2024-12-15] MEDS: methADONE HCl 20 MG/2 ML ORAL.CONC 85 MG PO (07:41)
[2024-12-15] MEDS: PHENobarbitaL 15 MG TABLET 45 MG PO ×2 (07:42→19:59)
[2024-12-15] MEDS: Multivitamin TABLET 1 TAB PO (07:42)
[2024-12-15] MEDS: Gabapentin 400 MG CAPSULE 800 MG PO ×3 (07:43→20:00)
[2024-12-15] MEDS: LORazepam 1 MG TABLET PO ×2 (07:43→20:00)
[2024-12-15] MEDS: Sertraline HCL 100 MG TABLET PO (07:43)
[2024-12-15] MEDS: Thiamine HCL 100 MG TABLET 200 MG PO (07:44)
[2024-12-15] MEDS: Folic Acid 1 MG TABLET PO (07:44)
[2024-12-15] MEDS: Lactulose 20 GM/30 ML SOLUTION 30 GM PO ×3 (07:47→18:09)
[2024-12-15] MEDS: 0.9 % Sodium Chloride Flush 3 ML SYRINGE IVFLUSH ×3 (07:58→20:01)
[2024-12-15] MEDS: ARIPiprazole 15 MG TABLET PO (08:15)
[2024-12-15] MEDS: busPIRone HCl 10 MG TABLET PO ×2 (08:16→20:00)
[2024-12-15 08:26] LABS: Alanine Aminotransferase 45 U/L (0-40); Albumin Level 2.7 g/dL (3.5-5.0); Alkaline Phosphatase 229 U/L (39-117); Aspartate Amino Transferase 117 U/L (5-37); Bilirubin Direct 1.8 mg/dL (0.0-0.5); Total Protein 6.9 g/dL (6.5-8.0)
[2024-12-15 11:14] VITALS: BP 118/78; PULSE 92; RESP 18; TEMP 36.7; O2SAT 94
--- NOTE | 2024-12-15 12:03 | MHC.RECOVRN ---
Met with pt. following referral received for substance use/ETOH Pt in bed resting and reporting significant right upper quad pain. Abdomen and BLE appear edematous and pt and mother report they are larger than usual and that pt has gained a lot of weight over the last several months. Pt also reports that he is not consistent with treatment prescribed for liver disease. At first pt minimized his drinking but later in the conversation did reports daily drinking for at least the last 6 months (maybe more but pt. reserved with conversation once mother entered the room). We discussed IOP and medical care and f/u along with case management and psych/therapy treatment. Pt received morphine for pain while I was in the room and became sedated. We will meet again tomorrow for full assessment and AUDIT C and to offer further resources.
--- NOTE | 2024-12-15 15:42 | P.PNIM_ITS ---
Subjective Subjective Date of Service: 12/16/24 Interval History: Complaining of right upper quadrant abdominal pain, appears sleepy trying to keep his eyes open, keep asking for morphine and Ativan. Requesting for Ativan upon discharge since has no primary care doctor but has a psychiatrist. Denies recent use of opiates Admits to have supportive mother. Chronic bilateral gynecomastia Review of Systems All other system reviewed and negative Physical Exam 2 Vital Signs: Vital Signs: Last Vital Signs Temp 98.1 F 12/15/24 11:14 Pulse 92 12/15/24 11:14 Resp 18 12/15/24 11:14 BP 118/78 12/15/24 11:14 Pulse Ox 94 12/15/24 11:14 O2 Del Method Room Air 12/15/24 11:14 BMI result Body Mass Index 39.0 Const: Other: General no acute distress,sleepy. Moist mucous membranes Neck no JVD. CVS regular rate rhythm, Respiratory lungs clear to auscultation, no respiratory distress, no wheeze, no rhonchi. Gastrointestinal abdomen soft, right upper quadrant tenderness to palpation, bowel sounds audible, no rigidity. Extremities no pitting edema Neuro non focal , no tremors Psych appropriate affect Objective Data Active Medications Acetaminophen (Acetaminophen 325 Mg Tablet) 650 mg PO Q6H PRN PRN Reason: Pain, Mild 1-3,fever,headache Albuterol Sulfate (Albuterol Sulfate 90 Mcg 8 Gm Inhaler) 2 puff INHALE RQ4H PRN PRN Reason: sob Aripiprazole (Aripiprazole 15 Mg Tablet) 15 mg PO DAILY [facility] Last Admin: 12/15/24 08:15 Dose: 15 mg Documented By: GRAEME Benzonatate (Benzonatate 100 Mg Capsule) 100 mg PO TID PRN PRN Reason: Cough Buspirone HCl (Buspirone Hcl 10 Mg Tablet) 10 mg PO BID [facility] Last Admin: 12/15/24 08:16 Dose: 10 mg Documented By: GRAEME Calcium Carbonate (Calcium Carbonate 750 Mg Tab.Chew) 750 mg PO Q4H PRN PRN Reason: Heartburn Folic Acid (Folic Acid 1 Mg Tablet) 1 mg PO DAILY [facility] Last Admin: 12/15/24 07:44 Dose: 1 mg Documented By: GRAEME Gabapentin (Gabapentin 400 Mg Capsule) 800 mg PO TID [facility] Last Admin: 12/15/24 07:43 Dose: 800 mg Documented By: GRAEME Lactulose (Lactulose 20 Gm/30 Ml Solution) 30 gm PO QID [facility] Lorazepam (Lorazepam 1 Mg Tablet) 1 mg PO BID [facility] Last Admin: 12/15/24 07:43 Dose: 1 mg Documented By: GRAEME Magnesium Hydroxide (Milk Of Magnesia 30 Ml Oral.Susp) 30 ml PO DAILY PRN PRN Reason: Constipation Melatonin (Melatonin 3 Mg Tablet) 6 mg PO BEDTIME PRN PRN Reason: Insomnia Methadone HCl (Methadone Hcl 20 Mg/2 Ml Oral.Conc) 85 mg PO DAILY [facility] Last Admin: 12/15/24 07:41 Dose: 85 mg Documented By: GRAEME Co-signed By: PORFIRIO Morphine Sulfate (Morphine Sulfate 4 Mg/Ml Cartridge) 4 mg IVPUSH Q4H PRN; Protocol PRN Reason: Pain, Severe (Pain Scale 7-10) Last Admin: 12/15/24 11:46 Dose: 4 mg Documented By: GRAEME Multivitamins/Vitamin C (Multivitamin Tablet) 1 tab PO DAILY [facility] Last Admin: 12/15/24 07:42 Dose: 1 tab Documented By: GRAEME Nicotine Polacrilex (Nicotine Polacrilex Lozenge 2 Mg Lozenge) 2 mg BUCCAL Q2H PRN PRN Reason: Nicotine Cravings Last Admin: 12/15/24 03:38 Dose: 2 mg Documented By: JOSÉ MIGUEL Ondansetron HCl (Ondansetron Hcl 4 Mg/2 Ml Vial) 4 mg IVPUSH Q8H PRN PRN Reason: Nausea and Vomiting Pharmacy Consult (Consult Rx Etoh Phenob Im/Po) 1 each MISCELLANE ONCE PRN; Protocol PRN Reason: Consult order Phenobarbital (Phenobarbital 15 Mg Tablet) 45 mg PO BID [facility] Stop: 12/15/24 21:01 Last Admin: 12/15/24 07:42 Dose: 45 mg Documented By: GRAEME Phenobarbital (Phenobarbital 30 Mg Tablet) 30 mg PO BID [facility] Stop: 12/17/24 21:01 Phenobarbital (Phenobarbital 30 Mg Tablet) 30 mg PO DAILY [facility] Stop: 12/19/24 09:01 Sertraline HCl (Sertraline Hcl 100 Mg Tablet) 100 mg PO DAILY [facility] Last Admin: 12/15/24 07:43 Dose: 100 mg Documented By: GRAEME Sodium Chloride (0.9 % Sodium Chloride Flush 3 Ml Syringe) 3 ml IVFLUSH QSHIFT [facility] Last Admin: 12/15/24 07:58 Dose: 3 ml Documented By: GRAEME Thiamine HCl (Thiamine Hcl 100 Mg Tablet) 200 mg PO DAILY [facility] Last Admin: 12/15/24 07:44 Dose: 200 mg Documented By: GRAEME Labs 12/14/24 12:43 12/14/24 12:43 Labs: Laboratory Results - last 24 hr 12/15/24 07:08 Total Bilirubin 3.0 H Direct Bilirubin 1.8 H AST 117 H ALT 45 H Alkaline Phosphatase 229 H Total Protein 6.9 Albumin 2.7 L Assessment and Plan (1) Abdominal pain, RUQ: Status: Acute (2) Increased ammonia level: Status: Acute (3) Right upper quadrant abdominal pain: Status: Acute (4) Alcohol abuse: Status: Acute (5) Substance abuse: Status: Acute Plan 34-year-old gentleman with past medical history significant for hepatitis-C untreated, decompensated liver cirrhosis, restless leg syndrome, anxiety and depression , patient continued to drink 2 pt of alcohol daily, presented to [facility] due to right upper quadrant abdominal pain of few days' duration, as well as weight gain, abdominal bloating and concern about alcohol withdrawal. Right upper quadrant abdominal pain Abdominal ultrasound concerning for hydrops gallbladder, no ascites, elevated LFTs with worsening of total and direct bili likely mild underlying alcoholic hepatitis No leukocytosis, no fevers Seen by General surgery they recommend HIDA scan and GI consult HIDA showed no obstruction of cystic duct. Seen by GI they recommend CT abdomen with IV contrast that showed marked distention of the gallbladder, nonspecific by CT, CT findings of cirrhosis and portal hypertension and left-sided gynecomastia Case discussed with Dr. Peña, gallbladder distention likely due to underlying cirrhosis. LFTs stable GI recommend complete abstinence from alcohol/patient has chronic bilateral gynecomastia/high-protein diet/check INR Minimize narcotics, causing sedation and on high dose of methadone at baseline, Continue supportive care Alcohol use disorder with high likelihood of withdrawal Phenobarb protocol, thiamine, folic acid Strongly recommend to abstain from alcohol Seen by Addiction Team patient minimizes use of drinking, being followed by Addiction Team, they recommend IOP. Substance use disorder U tox positive for opiates and methadone, Continue methadone, patient decline use of opiates Addiction consult Hypo magnesemia repleted, will place on magnesium replacement Hyperammonemia no acute encephalopathy not using lactulose has no primary care physician to prescribemeds, place on lactulose, ammonia trending down, will increase dose of lactulose and follow ammonia level Decompensated liver cirrhosis/hep C untreated/chronic thrombocytopenia recommend outpatient GI follow up, chronically elevated LFTs. Follow labs, strongly recommend abstinence from alcohol to received treatment for hep C Mood disorder resume home medications, requesting for Ativan script, recommended outpatient follow-up with Psychiatry. DVT prophylaxis compression boots due to low platelet. Full code In my clinical decision patient will require continued inpatient hospitalization for alcohol use disorder with likely withdrawal on phenobarb protocol, cirrhosis with elevated LFTs, Quality Stroke Does the patient have a stroke diagnosis?: No VTE Prior VTE?: No VTE Risk Level:: Medical - moderate - high VTE Device Contraindication: N/A - Device Ordered VTE Drug Contraindication: Treatment Not Indicated
[2024-12-15 16:00] VITALS: BP 117/66; PULSE 88; RESP 18; TEMP 36.8; O2SAT 95
[2024-12-15] MEDS: Magnesium Oxide 400 MG TABLET 800 MG PO (18:09)
[2024-12-15 19:12] VITALS: BP 140/78; PULSE 95; RESP 17; TEMP 36.7; O2SAT 98
[2024-12-15] MEDS: Morphine Sulfate 4 MG/ML CARTRIDGE 2 MG IVPUSH (22:16)
[2024-12-15 23:43] VITALS: BP 138/77; PULSE 89; RESP 17; TEMP 36.9; O2SAT 98
[2024-12-15] MEDS: Calcium Carbonate 750 MG TAB.CHEW PO (23:50)
[2024-12-16] MEDS: Ketorolac Tromethamine 30 MG/ML VIAL IVPUSH (01:00)
[2024-12-16 03:13] VITALS: BP 158/83; PULSE 84; RESP 17; TEMP 36.5; O2SAT 96
[2024-12-16] MEDS: Morphine Sulfate 4 MG/ML CARTRIDGE 2 MG IVPUSH (05:42)
[2024-12-16 06:25] LABS: Ammonia 82 umol/L (13-55)
[2024-12-16 06:27] LABS: INTERNATIONAL NORM RATIO 1.3 (0.9-1.1); Prothrombin Time 14.7 SEC (10.9-12.4)
[2024-12-16 06:34] LABS: Alanine Aminotransferase 43 U/L (0-40); Albumin Level 2.8 g/dL (3.5-5.0); Alkaline Phosphatase 215 U/L (39-117); Aspartate Amino Transferase 102 U/L (5-37); Bilirubin Direct 1.3 mg/dL (0.0-0.5); Bilirubin Total 1.9 mg/dL (0.0-1.0); Total Protein 6.8 g/dL (6.5-8.0)
[2024-12-16 07:05] VITALS: BP 132/67; PULSE 90; RESP 18; TEMP 36.7; O2SAT 96
--- NOTE | 2024-12-16 10:22 | MHC.RECOVRN ---
AUDIT-C Brief Intervention Pt denied use which resulted in a negative screen for unhealthy alcohol use on admission, but later admitted to use indicating unhealthy alcohol use, subsequently met with t/w to discuss alcohol use and recovery supports/options. This customs entry writer met with patient to discuss current alcohol use and concerns related to increased risk of alcohol related problems.? Pt reports 2 pints hard liquor daily x 6 months. Discussed how alcohol use has impacted health, including negative impact on mood including depression and physical health including already existing liver issues. Withdrawal History: None reported r/t ETOH Treatment History: Pt has been in several facilities in the past for OUD. Too many to list . Supports:?Pt lists mother as a strong support but also reports that mother drinks and enables him to continue to drink. Discussed risk reduction strategies changing living environment and attending IOP Provided pt with written resources including information on inpatient and outpatient treatment, [facility], harm reduction, and recovery coaching. Pt plans to explore CSS,TSS, IOP options Pt provided with t/w contact information if questions or concerns arise. Denies other questions or concerns at this time.
[2024-12-16] MEDS: methADONE HCl 20 MG/2 ML ORAL.CONC 85 MG PO (10:57)
[2024-12-16] MEDS: Lactulose 20 GM/30 ML SOLUTION 45 GM PO ×2 (10:58→14:08)
[2024-12-16] MEDS: LORazepam 1 MG TABLET PO (10:59)
[2024-12-16] MEDS: Thiamine HCL 100 MG TABLET 200 MG PO (10:59)
[2024-12-16] MEDS: PHENobarbitaL 30 MG TABLET PO (10:59)
[2024-12-16] MEDS: ARIPiprazole 15 MG TABLET PO (10:59)
[2024-12-16] MEDS: Multivitamin TABLET 1 TAB PO (10:59)
[2024-12-16] MEDS: Gabapentin 400 MG CAPSULE 800 MG PO ×2 (11:00→14:09)
--- NOTE | 2024-12-16 11:00 | P.DS_ITS ---
DS: Providers Provider Date of Service: 12/16/24 Date of admission: 12/13/24 14:20 Date of discharge: 12/16/24 Primary care physician: Unknown Physician Consults: 12/13/24 14:16 Consult to General Surgery Routine Consulting Provider: [facility] General Surgeons Reason for consultation: hydrops GB Has provider been notified: No 12/13/24 15:59 Consult to Gastroenterology Routine Consulting Provider: Jamilah Leal Reason for consultation: abd pain Has provider been notified: No 12/15/24 10:31 Addiction Medicine Routine Consulting Provider: Addiction Covering Reason for consultation: substance abuse/etoh Has provider been notified: No DS: Diagnosis Discharge Diagnosis (1) Abdominal pain, RUQ: Status: Acute (2) Increased ammonia level: Status: Acute (3) Alcohol abuse: Status: Acute (4) Substance abuse: Status: Acute DS: Summary Hospital Course Hospital Course: History of presenting illness: Date of Service: 12/13/24 Chief Complaint: Right upper quadrant abdominal pain, weight gain 34-year-old gentleman with past medical history significant for substance use disorder, continued to drink 2 pt of alcohol daily, last drink 2 days ago, history of IV drug use stop using few years ago, currently on methadone, history of hepatitis-C untreated, decompensated liver cirrhosis, restless leg syndrome, anxiety depression with prior history of seizure in the setting of possible alcohol and benzodiazepine withdrawal requiring admission at [facility] in 03/29/2024, presented to [facility] today due to right upper quadrant abdominal pain weight gain and abdominal bloating, without associated fever chills, no nausea, no vomiting, no lightheadedness or dizziness, no shortness of breath, has chronic leg edema with no worsening, patient has no primary care physician therefore not using lactulose . Workup in the ED showed magnesium 1.5, ammonia 123, albumin 3, stable renal function, electrolytes and hematocrit, influenza, RSV and SARS negative, right upper quadrant abdominal ultrasound showed hepatocellular disease/cirrhosis, no gallstone, no ascites, questionable hydrops gallbladder, total bili 2.5, direct bili 1.5, AST 137, ALT 54, alk-phos 253, chronically elevated due to underlying liver disease and continued use of alcohol. Patient is now being admitted to hospital due to right upper quadrant abdominal pain with concern for hydrops gallbladder, hypo magnesemia and high likelihood of alcohol withdrawal with history of heavy alcohol use. 34-year-old gentleman with past medical history significant for hepatitis-C untreated, decompensated liver cirrhosis, restless leg syndrome, anxiety and depression , continued to drink 2 pt of alcohol daily, presented to [facility] due to right upper quadrant abdominal pain of few days' duration, as well as weight gain, abdominal bloating and concern about alcohol withdrawal. In regard to Right upper quadrant abdominal pain, abdominal ultrasound obtained that was concerning for hydrops gallbladder, no ascites, elevated LFTs and bili likely due to underlying alcoholic hepatitis/cirrhosis had No leukocytosis, no fevers, HIDA scan showed no obstruction of cystic duct,CT abdomen with IV contrast showed marked distention of the gallbladder, nonspecific by CT, CT findings of cirrhosis and portal hypertension and left-sided gynecomastia, gallbladder distention was likely due to underlying cirrhosis, LFTs remained stable, seen by General surgery no intervention needed abdominal pain resolved with analgesics, patient tolerating diet, Recommended complete abstinence from alcohol, high-protein diet, patient has chronic bilateral gynecomastia due to cirrhosis. Alcohol use disorder with high likelihood of withdrawal treated with phenobarb protocol thiamine and folic acid and strongly recommended complete abstinence from alcohol since unable to received treatment for hepatitis C if he continued to drink, seen by Addiction Team they recommended IOP.(patient minimizes use of alcohol) Substance use disorder U tox positive for opiates and methadone, Continue methadone, patient decline use of opiates. Hypo magnesemia repleted. Hyperammonemia no acute encephalopathy not using lactulose has no primary care physician to prescribe meds, as per mother patient has lactulose but declines to take it, patient refused lactulose during hospitalization strongly recommended compliance with use of lactulose. Decompensated liver cirrhosis/hep C untreated/chronic thrombocytopenia recommend outpatient GI follow up, chronically elevated LFTs, strongly recommended abstinence from alcohol to receive treatment for hep C Mood disorder continue home meds. Time Attestation Discharge Coordination Time (in mins): 40 Quality: Safe Use of Opioids Does Pt have an Active Cancer Diagnosis on the Problem List?: No Quality: Stroke Does the patient have a stroke diagnosis?: No Physical Exam Vital Signs: Vital Signs: Last Vital Signs Temp 98.1 F 12/16/24 07:05 Pulse 90 12/16/24 07:05 Resp 18 12/16/24 07:05 BP 132/67 12/16/24 07:05 Pulse Ox 96 12/16/24 07:05 O2 Del Method Room Air 12/16/24 07:05 BMI result Body Mass Index 39.0 Const: Other: General no acute distress, awake alert Moist mucous membranes Neck no JVD. CVS regular rate rhythm, Respiratory lungs clear to auscultation, no respiratory distress, no wheeze, no rhonchi. Gastrointestinal abdomen soft, non tender, bowel sounds audible, no rigidity. Extremities no pitting edema Neuro non focal , no asterixis Psych appropriate affect DS: Data Data Completed and Pending Labs on day of discharge: Laboratory Results - last 24 hr 12/16/24 06:09 PT 14.7 H INR 1.3 H Total Bilirubin 1.9 H Direct Bilirubin 1.3 H AST 102 H ALT 43 H Alkaline Phosphatase 215 H Ammonia 82 H Total Protein 6.8 Albumin 2.8 L Discharge Plan Discharge Anticipated Discharge Date/Time: 12/16/24 10:45 Patient Disposition: Home, Self-Care Discharge Diagnosis: Alcohol use disorder/alcohol withdrawal Substance use disorder End-stage liver disease Distended gallbladder Referrals: Physician,Unknown J [Primary Care Provider] - 1 Week Discharge Medications: New lactulose 10 gram/15 mL solution 30 g PO TID Qty: 3785 0RF Continued methadone 10 mg/mL Concentrate 85 mg PO DAILY Rx Instructions: MAU DUNCAN [phone] buspirone 5 mg tablet 10 mg PO BID clonidine HCl 0.1 mg tablet 0.1 mg PO BID sertraline 100 mg tablet 100 mg PO DAILY thiamine HCl (vitamin B1) 100 mg tablet 200 mg PO DAILY gabapentin 800 mg tablet 800 mg PO TID folic acid 1 mg tablet 1 mg PO DAILY aripiprazole 15 mg tablet 15 mg DAILY Therapeutic-M 9 mg iron-400 mcg tablet 1 tab PO DAILY Xifaxan 550 mg tablet 550 mg PO BID melatonin 5 mg Tablet 5 mg PO BEDTIME Changed lorazepam 0.5 mg tablet 0.5 mg PO BID Qty: 10 0RF Discharge Orders: Discharge Order (Routine); Ordered 12/16/24 Ordered By: Juan Luis Ramos Diet: protein shaked 3xper day Activity on Discharge: As tolerated Stand Alone Forms: Patient Portal Discharge page Print Language: Croatian Care Plan Goals: Alcohol use disorder strongly recommend to abstain completely from alcohol intake due to advanced liver disease/significant decline in liver function Need to stopped drinking alcohol to get treatment for hepatitis-C Take lactulose 3 times a day as directed hold dosage for more than 2 bowel movement a day Minimize use of Ativan Health Concerns: Alcohol use disorder Substance use disorder Plan of Treatment: Close outpatient follow-up with Psychiatry Follow-up with fermentation scientist Dr. Leal for continued care of cirrhosis of liver/and hepatitis-C Arrange for outpatient primary care physician for close follow-up Assessment: As above Discharge Date/Time: 12/16/24 14:30
[2024-12-16] MEDS: Sertraline HCL 100 MG TABLET PO (11:01)
[2024-12-16] MEDS: Folic Acid 1 MG TABLET PO (11:01)
[2024-12-16] MEDS: Magnesium Oxide 400 MG TABLET 800 MG PO (11:01)
[2024-12-16] MEDS: 0.9 % Sodium Chloride Flush 3 ML SYRINGE IVFLUSH (11:01)
[2024-12-16] MEDS: busPIRone HCl 10 MG TABLET PO (11:01)
--- NOTE | 2024-12-16 14:53 | MHC.CM.PN ---
Pt has been medically cleared for DC, he will go home via private transport, plan is self care.
[2024-12-25 11:00] LABS: Alcohol, Ethyl Urine Screen NEGATIVE
== END 2024-12-16 14:30 | disposition home or self-care (01) | DRG 280 ==
LOC: HO.ED 12:26 → HO.EDOVER 14:27 → HO.IMC 12-14 07:48
PROVIDERS: Physician Assistant Medical; Student in an Organized Health Care Education/Training Program; Admitting Provider Hospitalist; Emergency Provider Emergency Medicine; Visit Provider Hospitalist
DX: K70.30 Alcoholic cirrhosis of liver without ascites (principal); K70.10 Alcoholic hepatitis without ascites; E72.20 Disorder of urea cycle metabolism, unspecified; K82.1 Hydrops of gallbladder; K76.6 Portal hypertension; D69.59 Other secondary thrombocytopenia; F32.A Depression, unspecified; F41.9 Anxiety disorder, unspecified; G25.81 Restless legs syndrome; N62 Hypertrophy of breast; B18.2 Chronic viral hepatitis C; E83.42 Hypomagnesemia; F10.139 Alcohol abuse with withdrawal, unspecified; T47.3X6A Underdosing of saline and osmotic laxatives, initial encounter; T50.0X6A Underdosing of mineralocorticoids and their antagonists, initial encounter; F11.20 Opioid dependence, uncomplicated; Z71.41 Alcohol abuse counseling and surveillance of alcoholic; Z20.822 Contact with and (suspected) exposure to COVID-19; Z79.899 Other long term (current) drug therapy
CPT/HCPCS: 0241U; 36415; 74160; 76705; 78226; 80048; 80053; 80076; 80307; 81001; 82140; 82248; 83735; 85025; 85027; 85610; 99285; A9537; J1171; J1885; J2060; J2270; J2560; J3475; J7120; Q9967; S9485

== ENCOUNTER → 2024-12-13 11:48 | Outpatient (BNV) | payer OTHER, SELFPAY | PROVIDERS: Emergency Provider Emergency Medicine; Visit Provider Radiology Diagnostic Radiology | DX: R10.11 Right upper quadrant pain (principal) | CPT/HCPCS: 76705 ==

== ENCOUNTER 2024-12-13 14:20 | Outpatient (BNV) | payer OTHER, SELFPAY | END 2024-12-14 08:45 | PROVIDERS: Admitting Provider Hospitalist; Emergency Provider Emergency Medicine; Visit Provider Radiology Diagnostic Radiology | DX: K82.8 Other specified diseases of gallbladder (principal); K82.1 Hydrops of gallbladder; K74.60 Unspecified cirrhosis of liver; R16.1 Splenomegaly, not elsewhere classified; I86.4 Gastric varices | CPT/HCPCS: 74160; 78226 ==

== ENCOUNTER → 2024-12-13 14:20 | Outpatient (BNV) | payer OTHER, SELFPAY | PROVIDERS: Admitting Provider Hospitalist; Emergency Provider Emergency Medicine; Visit Provider Internal Medicine Gastroenterology | DX: R10.11 Right upper quadrant pain (principal); K74.60 Unspecified cirrhosis of liver; F10.10 Alcohol abuse, uncomplicated | CPT/HCPCS: 99222 ==

== ENCOUNTER → 2024-12-13 14:20 | Outpatient (BNV) | payer OTHER, SELFPAY | PROVIDERS: Admitting Provider Hospitalist; Emergency Provider Emergency Medicine; Visit Provider Hospitalist | DX: R10.11 Right upper quadrant pain (principal); R79.89 Other specified abnormal findings of blood chemistry; F10.10 Alcohol abuse, uncomplicated; F19.10 Other psychoactive substance abuse, uncomplicated | CPT/HCPCS: 99222; 99232 ==

== ENCOUNTER → 2024-12-13 14:20 | Outpatient (BNV) | payer OTHER, SELFPAY | PROVIDERS: Admitting Provider Hospitalist; Emergency Provider Emergency Medicine; Visit Provider Surgery | DX: K74.60 Unspecified cirrhosis of liver (principal); F19.10 Other psychoactive substance abuse, uncomplicated; F10.10 Alcohol abuse, uncomplicated; R10.11 Right upper quadrant pain | CPT/HCPCS: 99222; 99232 ==

== ENCOUNTER 2025-01-02 17:41 | Emergency (ER) | payer OTHER, SELFPAY ==
[2025-01-02 17:51] VITALS: BP 155/93; PULSE 101; RESP 19; TEMP 36.6; O2SAT 98; BMI 38.2
--- NOTE | 2025-01-02 17:51 | ED_ITS ---
HPI - General Adult General Chief complaint: General Medical Stated complaint: abd pain Time Seen by Provider: 01/02/25 20:53 History of Present Illness ED Provider: Cait LOPEZ narrative: The patient is a 34-year-old male who has a history of liver disease. He has a history of alcoholism. He also has a history of untreated hepatitis-C. He has been identified as having cirrhosis. He is on methadone. He continues to use alcohol. He has been having right upper quadrant pain for the last several months. He was hospitalized at the hospital here earlier this month from December 10 through December 16 for workup of right upper quadrant abdominal pain. He apparently had hydrops of his gallbladder. He has a HIDA scan that showed no evidence of cystic duct obstruction. He had a CT scan that also showed marked distention of the gallbladder and also CT findings of cirrhosis and portal hypertension with splenomegaly and multiple upper abdominal varices. The patient is on numerous medications including gabapentin and lorazepam which he says are prescribed by a tele psychiatrist. He says that he has an appointment with a PCP next month at a [facility] practice in [place] but he does not currently have a PCP he says. He presents today complaining again of the right upper quadrant pain that he had when he was here earlier this month. He says he has had this pain for 5 months. Was also concerned that several months ago or possibly even a year ago he was contacted from a hospital in [place] where he was told that he had gonorrhea. He believes he has never been treated for gonorrhea. Related Data Home Medications ?Medication ?Instructions ?Recorded ?Confirmed methadone 10 mg/mL oral concentrate 85 mg PO DAILY 03/03/24 12/13/24 aripiprazole 15 mg tablet 15 mg DAILY 12/13/24 12/13/24 buspirone 5 mg tablet 10 mg PO BID anxiety 12/13/24 12/13/24 clonidine HCl 0.1 mg tablet 0.1 mg PO BID 12/13/24 12/13/24 folic acid 1 mg tablet 1 mg PO DAILY 12/13/24 12/13/24 gabapentin 800 mg tablet 800 mg PO TID 12/13/24 12/13/24 melatonin 5 mg tablet 5 mg PO BEDTIME 12/13/24 12/13/24 multivitamin-iron 9 mg-folic acid 1 tab PO DAILY 12/13/24 12/13/24 400 mcg-calcium and minerals tablet (Therapeutic-M) rifaximin 550 mg tablet (Xifaxan) 550 mg PO BID 12/13/24 12/13/24 sertraline 100 mg tablet 100 mg PO DAILY 12/13/24 12/13/24 thiamine HCl (vitamin B1) 100 mg 200 mg PO DAILY 12/13/24 12/13/24 tablet Previous Rx's ?Medication ?Instructions ?Recorded lactulose 10 gram/15 mL oral 30 g (45 mL) PO TID #3,785 mL 12/16/24 solution lorazepam 0.5 mg tablet 0.5 mg PO BID #10 tabs 12/16/24 doxycycline monohydrate 100 mg 100 mg PO BID #14 caps 01/02/25 capsule morphine 15 mg immediate release 15 mg PO Q6H PRN pain #12 tabs 01/02/25 tablet Allergies Allergy/AdvReac Type Severity Reaction Status Date / Time fish derived [fish] Allergy Anaphylaxis Verified 01/02/25 17:53 shellfish derived Allergy Anaphylaxis Verified 01/02/25 17:53 Review of Systems 2 Review of Systems: Yes all other systems are reviewed and are negative [facility] Past Medical History Medical History Opiate use Social History Social History Household Members: Family Housing: House Do you presently have visiting nurse or other home services: No Alcohol intake: current Alcohol intake frequency: former alcohol drinker Alcohol type: hard liquor Comment: refuses alarms Patient Tobacco Use Status: Never used Tobacco e-Cigarette/Vaping Use: Currently Using Advance Directives: No Advance Directives Information Provided: No Do you have a plan to hurt others: No Plan service: No Physical Exam ED Vital Signs: Vital Signs - 24 hr 01/02/25 17:51 01/02/25 21:00 01/02/25 22:48 Temperature 98 F 98.7 F 98.7 F Pulse Rate 101 H 88 110 H Respiratory Rate 19 16 16 Blood Pressure 155/93 H 118/76 120/80 Pulse Oximetry 98 96 97 Oxygen Delivery Method Room Air Room Air Room Air 01/02/25 22:55 Temperature 98.7 F Pulse Rate 110 H Respiratory Rate 16 Blood Pressure 120/80 Pulse Oximetry 97 Oxygen Delivery Method Room Air BMI result Body Mass Index 38.2 Const Other: The patient is a osorio 34-year-old male who was awake and alert. He does not appear obviously acutely ill. HENMT Other: Face is symmetrical. Mucous membranes moist. Eyes General: appearance normal, both eyes and all related structures Sclerae: sclerae normal Pupils: Equal, round and reactive pupils present EOM: EOMs intact bilaterally Resp Effort & Inspection: normal respiratory effort Auscultation: clear to auscultation bilaterally Cardio Rate: regular rate Rhythm: regular rhythm Heart sounds: S1 normal heart sound present and S2 normal heart sound present GI Other: The patient's abdomen is soft. I do not appreciate any fluid wave or other signs of ascites. He has a right upper quadrant tenderness. Skin Other: Skin is dry and unremarkable General skin exam: no rashes or lesions noted Neuro Other: The patient is awake and alert with a normal mental status. He does not seem encephalopathic. He seems appropriately oriented. Cranial nerves 2-12 are intact. He moves his extremities normally. He has a normal gait. Cranial nerves: Yes Equal, round and reactive pupils present Extrem Other: No peripheral edema. No calf asymmetry or tenderness. Course Course Course Narrative: RME, this is a rapid medical exam performed by Faizan Dinh please refer to primary provider for complete H&P- 34-year-old male past medical history significant for alcohol abuse, liver cirrhosis presents for evaluation of abdominal pain and confusion. The patient believes that his ammonia is elevated. plan for labs including LFTs, INR and ammonia level Medications Administered Discontinued Medications Generic Name Dose Route Start Last Admin Trade Name Sonia PRN Reason Stop Dose Admin Gabapentin 800 mg 01/02/25 21:11 01/02/25 21:44 Gabapentin 600 Mg Tablet PO 01/02/25 21:12 800 mg ONCE ONE Administration Lorazepam 1 mg 01/02/25 21:11 01/02/25 21:44 Lorazepam 1 Mg Tablet PO 01/02/25 21:12 1 mg ONCE ONE Administration Morphine Sulfate 15 mg 01/02/25 21:12 01/02/25 21:44 Morphine Sulfate Immed Release 15 Mg Tablet PO 01/02/25 21:13 15 mg ONCE ONE Administration Rifaximin 550 mg 01/02/25 21:11 01/02/25 21:44 Rifaximin 550 Mg Tablet PO 01/02/25 21:12 550 mg ONCE ONE Administration Medical Decision Making Medical Decision Making [facility] Narrative: The patient is a 34-year-old male who has a history of alcoholism and cirrhosis. He also has a history of untreated hepatitis-C. He still drinks alcohol. The patient was recently hospitalized for evaluation of right upper quadrant pain. He had a negative workup and was discharged after 3 days in the hospital. He presents with what seems to be the same pain. The patient is still drinking alcohol. His ethanol level today is 198. Other labs seems stable. His ammonia level is 86. I suspect this is his baseline. He is on lactulose and rifaximin. The patient requested his usual dose of gabapentin and lorazepam. He was given a dose of rifaximin. He also requested something for his pain and he was given oral morphine. The patient says that he has a first-time new PCP appointment next month. He is advised that he needs to stop drinking altogether if he does not want his liver disease to progress. Additionally he is advised that he needs to follow up with Gastroenterology so that treatment of his hepatitis-C can be considered. The patient requested treatment for chlamydia. This was based on the patient's report of testing positive for chlamydia at an emergency room several months ago and he is worried that he has never been treated for it. He was asked to give an appropriate urine sample for GC and chlamydia testing. He was started empirically on doxycycline. He looked quite well and seemed appropriate for discharge. I did not see any indication for repeat imaging of his abdomen. Lab Data 01/02/25 18:07 01/02/25 18:07 Labs: Lab Results 01/02/25 01/02/25 01/02/25 Range/Units 18:07 18:08 19:23 WBC 5.8 (4.8-10.8) X10*3/uL RBC 4.76 (4.60-5.80) X10*6/uL Hgb 14.7 (14.0-18.0) g/dl Hct 41.4 L (42.0-52.0) % MCV 87.0 (80.0-98.0) fL MCH 30.9 (27.0-33.0) pg MCHC 35.5 (31.0-36.0) g/dl RDW 14.4 (11.0-16.0) % Plt Count 70 L (160-400) X10*3/uL MPV 11.2 (9.4-12.4) fL Immature Gran % (Auto) 0.2 (0.0-0.4) % Neut % (Auto) 59.6 (45-73) % Lymph % (Auto) 32.1 (20-40) % [place] % (Auto) 7.4 (2-11) % Eos % (Auto) 0.5 (0-4) % Baso % (Auto) 0.2 (0-2) % Lymph # (Auto) 1.9 (1.2-4.9) X10*3/uL [place] # (Auto) 0.4 (0.1-1.2) X10*3/uL Eos # (Auto) 0.0 (0.0-0.4) X10*3/uL Baso # (Auto) 0.0 (0.0-0.2) X10*3/uL Abs Immat Gran (auto) 0.01 (0.00-0.03) X10*3/uL Absolute Neuts (auto) 3.5 (2.0-8.3) x10*3/uL Absolute Nucleated RBC 0.000 (0.0-0.012) X10*3/uL Nucleated RBC % (auto) 0.0 (0.0-0.2) /100WBC PT 13.8 H (10.9-12.4) SEC INR 1.2 H (0.9-1.1) Sodium 140 (135-145) mmol/L Potassium 4.0 (3.3-5.1) mmol/L Chloride 112 H (96-108) mmol/L Carbon Dioxide 22 (22-29) mmol/L Anion Gap 10 L (12-20) BUN 13 (9-16) mg/dL Creatinine 0.69 (0.5-1.4) mg/dL Estim Creat Clear Calc 169.0 Estimated GFR > 60 Random Glucose 81 (60-115) mg/dL Calcium 8.9 (8.4-10.2) mg/dL Magnesium 2.0 (1.6-2.6) mg/dL Total Bilirubin 1.5 H (0.0-1.0) mg/dL Direct Bilirubin 0.9 H (0.0-0.5) mg/dL AST 113 H (5-37) U/L ALT 81 H (0-40) U/L Alkaline Phosphatase 190 H (39-117) U/L Ammonia 86 H (13-55) umol/L Total Protein 8.0 (6.5-8.0) g/dL Albumin 3.5 (3.5-5.0) g/dL Lipase 79 H (8-78) U/L Urine Color Yellow Urine Appearance Clear Urine pH 6.5 (5.0-9.0) Ur Specific [place] <= 1.005 (1.005-1.025) Urine Protein Negative (Neg-Trace) mg/dL Urine Glucose (UA) Negative (Negative) mg/dL Urine Ketones Negative (Negative) mg/dL Urine Blood Negative (Negative) Urine Nitrite Negative (Negative) Ur Leukocyte Esterase Negative (Negative) Urine RBC 0-2 (0-2) /HPF Urine WBC 0-5 (0-5) /HPF Ur Squamous Epith Cells 0-2 (0-2) /HPF Urine Bacteria None Seen (None Seen) Hyaline Casts 0-2 (0-2) /LPF Urine Opiates Screen Not Detected (Not Detect) Ur Buprenorphine Scrn Not Detected (Not Detect) ng/mL Ur Oxycodone Screen Not Detected (Not Detect) ng/mL Urine Methadone Screen Positive H (Not Detect) ng/mL Urine Fentanyl Screen Not Detected (Not Detect) Ur Barbiturates Screen Not Detected (Not Detect) Ur Phencyclidine Scrn Not Detected (Not Detect) Ur Amphetamines Screen Not Detected (Not Detect) U Benzodiazepines Scrn Not Detected (Not Detect) Urine Cocaine Screen Not Detected (Not Detect) U Marijuana (THC) Screen Not Detected (Not Detect) Ethyl Alcohol 198 mg/dL Chlam trachomat DNA PCR (Not Detect.) N.gonorrhoeae DNA (PCR) (Not Detect.) 01/02/25 Range/Units 21:22 WBC (4.8-10.8) X10*3/uL RBC (4.60-5.80) X10*6/uL Hgb (14.0-18.0) g/dl Hct (42.0-52.0) % MCV (80.0-98.0) fL MCH (27.0-33.0) pg MCHC (31.0-36.0) g/dl RDW (11.0-16.0) % Plt Count (160-400) X10*3/uL MPV (9.4-12.4) fL Immature Gran % (Auto) (0.0-0.4) % Neut % (Auto) (45-73) % Lymph % (Auto) (20-40) % [place] % (Auto) (2-11) % Eos % (Auto) (0-4) % Baso % (Auto) (0-2) % Lymph # (Auto) (1.2-4.9) X10*3/uL [place] # (Auto) (0.1-1.2) X10*3/uL Eos # (Auto) (0.0-0.4) X10*3/uL Baso # (Auto) (0.0-0.2) X10*3/uL Abs Immat Gran (auto) (0.00-0.03) X10*3/uL Absolute Neuts (auto) (2.0-8.3) x10*3/uL Absolute Nucleated RBC (0.0-0.012) X10*3/uL Nucleated RBC % (auto) (0.0-0.2) /100WBC PT (10.9-12.4) SEC INR (0.9-1.1) Sodium (135-145) mmol/L Potassium (3.3-5.1) mmol/L Chloride (96-108) mmol/L Carbon Dioxide (22-29) mmol/L Anion Gap (12-20) BUN (9-16) mg/dL Creatinine (0.5-1.4) mg/dL Estim Creat Clear Calc Estimated GFR Random Glucose (60-115) mg/dL Calcium (8.4-10.2) mg/dL Magnesium (1.6-2.6) mg/dL Total Bilirubin (0.0-1.0) mg/dL Direct Bilirubin (0.0-0.5) mg/dL AST (5-37) U/L ALT (0-40) U/L Alkaline Phosphatase (39-117) U/L Ammonia (13-55) umol/L Total Protein (6.5-8.0) g/dL Albumin (3.5-5.0) g/dL Lipase (8-78) U/L Urine Color Urine Appearance Urine pH (5.0-9.0) Ur Specific [place] (1.005-1.025) Urine Protein (Neg-Trace) mg/dL Urine Glucose (UA) (Negative) mg/dL Urine Ketones (Negative) mg/dL Urine Blood (Negative) Urine Nitrite (Negative) Ur Leukocyte Esterase (Negative) Urine RBC (0-2) /HPF Urine WBC (0-5) /HPF Ur Squamous Epith Cells (0-2) /HPF Urine Bacteria (None Seen) Hyaline Casts (0-2) /LPF Urine Opiates Screen (Not Detect) Ur Buprenorphine Scrn (Not Detect) ng/mL Ur Oxycodone Screen (Not Detect) ng/mL Urine Methadone Screen (Not Detect) ng/mL Urine Fentanyl Screen (Not Detect) Ur Barbiturates Screen (Not Detect) Ur Phencyclidine Scrn (Not Detect) Ur Amphetamines Screen (Not Detect) U Benzodiazepines Scrn (Not Detect) Urine Cocaine Screen (Not Detect) U Marijuana (THC) Screen (Not Detect) Ethyl Alcohol mg/dL Chlam trachomat DNA PCR NOT DETECTED (Not Detect.) N.gonorrhoeae DNA (PCR) NOT DETECTED (Not Detect.) Discharge Plan Discharge Clinical Impression: Right upper quadrant abdominal pain, Cirrhosis, Alcoholism, Hepatitis C, Concern about sexually transmitted disease in male without diagnosis Patient Disposition: Home, Self-Care Additional Instructions: The most important thing you can do to help your health and also to help your abdominal pain would be to stop drinking. Your alcohol level today was 189. This is a considerably a high level. Please try to stop using alcohol This is especially true because you also have Hepatitis C. Please make sure that you keep your appointment with your new doctor in [place] so that you can start treatment for your hepatitis-C. I have sent a prescription for pain medications to your pharmacy. I have also sent a prescription for an antibiotic in case you have chlamydia. Again, please try to stop using alcohol and follow up with your new primary care doctor soon. Prescriptions: New morphine 15 mg tablet 15 mg PO Q6H PRN (Reason: pain) Qty: 12 0RF Rx Instructions: Partial Fill upon patient request. doxycycline monohydrate 100 mg capsule 100 mg PO BID Qty: 14 0RF No Action methadone 10 mg/mL Concentrate 85 mg PO DAILY Rx Instructions: MAU LEECHASE [phone] buspirone 5 mg tablet 10 mg PO BID clonidine HCl 0.1 mg tablet 0.1 mg PO BID sertraline 100 mg tablet 100 mg PO DAILY thiamine HCl (vitamin B1) 100 mg tablet 200 mg PO DAILY gabapentin 800 mg tablet 800 mg PO TID folic acid 1 mg tablet 1 mg PO DAILY aripiprazole 15 mg tablet 15 mg DAILY Therapeutic-M 9 mg iron-400 mcg tablet 1 tab PO DAILY Xifaxan 550 mg tablet 550 mg PO BID melatonin 5 mg Tablet 5 mg PO BEDTIME lactulose 10 gram/15 mL solution 30 g PO TID Qty: 3785 0RF lorazepam 0.5 mg tablet 0.5 mg PO BID Qty: 10 0RF Interventions: ED Discharge Assessment Last Done: 01/02/25 22:55 Discharge Date/Time: 01/02/25 22:55 Print Language: Malay
[2025-01-02 18:15] LABS: MANUAL DIFF FLAG NO
[2025-01-02 18:20] LABS: Hemoglobin 14.7 g/dl (14.0-18.0); Imm Gran Abs Auto 0.01 X10*3/uL (0.00-0.03); Imm Gran Pct Auto 0.2 % (0.0-0.4); Lymphocytes Percent Auto 32.1 % (20-40); PLT CLUMP 1; SCAN SMEAR FLAG 1
[2025-01-02 18:21] LABS: Hematocrit 41.4 % (42.0-52.0); Red Blood Count 4.76 X10*6/uL (4.60-5.80)
[2025-01-02 18:21] LABS: Appearance Urine Clear; Color Urine Yellow; Glucose Urine UA Negative (Negative); Leukocyte Esterase Urine Negative (Negative); Nitrite Urine Negative (Negative); PH 6.5 (5.0-9.0); Specific Gravity - Urine <= 1.005 (1.005-1.025); Urine Blood Negative (Negative); Urine Ketones Negative (Negative); Urine Protein Negative (Neg-Trace)
[2025-01-02 18:22] LABS: Basophils Percent Auto 0.2 % (0-2); Eosinophils Percent Auto 0.5 % (0-4); Lymphocytes Absolute Auto 1.9 X10*3/uL (1.2-4.9); Mean Corpuscular HGB Conc 35.5 g/dl (31.0-36.0); Mean Corpuscular Hemoglobin 30.9 pg (27.0-33.0); Mean Platelet Volume 11.2 fL (9.4-12.4); Monocytes Absolute Auto 0.4 X10*3/uL (0.1-1.2); Monocytes Percent Auto 7.4 % (2-11); Neutrophils Absolute Auto 3.5 x10*3/uL (2.0-8.3); Neutrophils Percent Auto 59.6 % (45-73); Red Cell Distribution Width 14.4 % (11.0-16.0)
[2025-01-02 18:23] LABS: Platelet Count 70 X10*3/uL (160-400); White Blood Count 5.8 X10*3/uL (4.8-10.8)
[2025-01-02 18:24] LABS: Bacteria Urine None Seen (None Seen); Hyaline Casts Urine 0-2 /LPF (0-2); RBC Urine 0-2 /HPF (0-2); Squamous Epithelial Cell Urine 0-2 /HPF (0-2); WBC Urine 0-5 /HPF (0-5)
[2025-01-02 18:28] LABS: INTERNATIONAL NORM RATIO 1.2 (0.9-1.1); Prothrombin Time 13.8 SEC (10.9-12.4)
[2025-01-02 18:29] LABS: Amphetamine Screen Urine Not Detected (Not Detect); Barbiturates, Urine Not Detected (Not Detect); Benzodiazepines Screen Urine Not Detected (Not Detect); Buprenorphine Scr Not Detected (Not Detect); Cannabinoid Screen Urine Not Detected (Not Detect); Cocaine Screen Urine Not Detected (Not Detect); Fentanyl, urine Not Detected (Not Detect); Methadone Screen, Urine Positive (Not Detect); Opiate Screen Urine Not Detected (Not Detect); Oxycodone Screen Urine Not Detected (Not Detect); Phencyclidine Screen Urine Not Detected (Not Detect)
[2025-01-02 18:38] LABS: Alanine Aminotransferase 81 U/L (0-40); Albumin Level 3.5 g/dL (3.5-5.0); Alkaline Phosphatase 190 U/L (39-117); Anion Gap 10 (12-20); Aspartate Amino Transferase 113 U/L (5-37); Bilirubin Direct 0.9 mg/dL (0.0-0.5); Bilirubin Total 1.5 mg/dL (0.0-1.0); Blood Urea Nitrogen 13 mg/dL (9-16); Calcium 8.9 mg/dL (8.4-10.2); Carbon Dioxide 22 mmol/L (22-29); Chloride 112 mmol/L (96-108); Estimated Glomerular Filt Rate > 60; Glucose Random 81 mg/dL (60-115); Lipase 79 U/L (8-78); Sodium 140 mmol/L (135-145)
[2025-01-02 19:36] LABS: Ammonia 86 umol/L (13-55)
--- NOTE | 2025-01-02 20:06 | PC.NURSE ---
Attempted to obtain Methadone dose verification from [facility]. However, due to being after hours, staff was unable to access last dose, date, & time of administration. Patient verbally stated that he last took Methadone 85mg this morning. [facility] staff member is reaching out to [facility] hydrochloric area supervisor to confirm if dose can be confirmed after hours. Call back number given to main ED line. Awaiting call back. Patient continues to await ED provider evaluation at this time. Patient is needy, but able to make needs known. Given sola mike by Dr. Estrella. Patient reports last drink around 5pm today, drinks 2 pints of [place] or more daily at baseline.
--- NOTE | 2025-01-02 20:30 | PC.NURSE ---
Methadone dose confirmed. Methadone 85mg confirmed by [facility] staff member Marta. Last dose given on 01/01/2025, but was given 2 home doses to take today and tomorrow. Patient reports taking his home Methadone today around 7am. Paperwork filed into patient's chart. No plan for admission at this time, awaiting ED provider evaluation.
[2025-01-02 21:00] VITALS: BP 118/76; PULSE 88; RESP 16; TEMP 37.1; O2SAT 96
[2025-01-02 21:21] LABS: Ethanol 198 mg/dL
[2025-01-02] MEDS: rifAXIMin 550 MG TABLET PO (21:44)
[2025-01-02] MEDS: Morphine Sulfate Immed Release 15 MG TABLET PO (21:44)
[2025-01-02] MEDS: LORazepam 1 MG TABLET PO (21:44)
[2025-01-02] MEDS: Gabapentin 600 MG TABLET 800 MG PO (21:44)
[2025-01-02 22:48] VITALS: BP 120/80; PULSE 110; RESP 16; TEMP 37.1; O2SAT 97
[2025-01-02 22:55] VITALS: BP 120/80; PULSE 110; RESP 16; TEMP 37.1; O2SAT 97
[2025-01-02 22:58] LABS: CT PCR NOT DETECTED (Not Detect.); NG PCR NOT DETECTED (Not Detect.)
== END 2025-01-02 22:55 | disposition home or self-care (01) ==
PROVIDERS: Physician Assistant; Emergency Provider Emergency Medicine
DX: R10.11 Right upper quadrant pain (principal); F10.10 Alcohol abuse, uncomplicated; Y90.6 Blood alcohol level of 120-199 mg/100 ml; K74.60 Unspecified cirrhosis of liver; B19.20 Unspecified viral hepatitis C without hepatic coma; Z20.2 Contact with and (suspected) exposure to infections with a predominantly sexual mode of transmission; Z79.899 Other long term (current) drug therapy
CPT/HCPCS: 36415; 80048; 80076; 80307; 81001; 82140; 83690; 83735; 85025; 85610; 87491; 87591; 99283

== ENCOUNTER 2025-01-24 13:39 | Outpatient (AMB) | payer OTHER, SELFPAY ==
--- NOTE | 2025-01-24 13:45 | A.OFFVIS_ITS ---
Vital Signs 01/24/25 13:47 Height 5 ft 5 in Weight 238 lb BMI 39.6 BP 125/62 Blood Pressure Location Lt brachial Position Sitting Pulse 57 Pulse Oximetry (%) 96 Oxygen Delivery Method Room Air Intake Visit Reasons: Hospital follow up Intake Note: Patient hospital follow up for alcoholism. Patient cc: RLQ pain, abdominal pain, gain weight, acid reflex on and off, discomfort swallowing, and constipation with light red blood. Culinary Director Required: No Accompanied by: Self / Same As Patient Allergies fish derived (fish) Allergy (Verified 03/28/25 13:22) Anaphylaxis shellfish derived Allergy (Verified 03/28/25 13:22) Anaphylaxis Medication List - Last Reconciled 01/24/25 by Jamilah Leal MD aripiprazole 15 mg DAILY clonidine HCl 0.1 mg PO BID gabapentin 800 mg PO TID lactulose 30 grams (45 mL) PO TID lorazepam 0.5 mg PO BID methadone 85 mg PO DAILY morphine 15 mg PO Q6H PRN uscnumyw-hoot-OG-calcium-mins 9 mg iron-400 mcg (Therapeutic-M) 1 tab PO DAILY rifaximin (Xifaxan) 550 mg PO BID sertraline 100 mg PO DAILY thiamine HCl (vitamin B1) 200 mg PO DAILY HPI HPI Hospital follow up: Details: GI clinic visit for this 34 YM with substance use disorder, continued to drink 2 pt of alcohol daily, history of IV drug use stop using few years ago (on methadone), history of hepatitis-C untreated, decompensated liver cirrhosis, restless leg syndrome, anxiety depression admitted to [facility] from 12/13/24 to 12/16/24 with right upper quadrant abdominal pain, weight gain and abdominal bloating. TODAY'S VISIT: Patient cc: RLQ pain, abdominal pain, gain weight, acid reflex on and off, discomfort swallowing, and constipation with light red blood. Unsure how he acquired hepatitis C Hx of IVDA and denies needle sharing. Not doing too well - states he is in severe pain Feels bloated and has leg edema. Patient complains nausea, intermittent heartburn and dysphagia to liquids only, nausea. Gained 75 lbs over the past 3 months - barely eats. Intermittent constipation and has a BM once every 3 days - taking lactulose 30 ml 3 times a day. Noted passage of BRB per rectum 2 weeks ago after straning at stool. Patient denies major cardiac or pulmonary problems, loud snoring or sleep apnea Had wisdom teeth surgery and denies problems with anesthesia in the past. Takes ibuprofen sometimes and denies being on chronic anticoagulation. Pt reports having an EGD 6 to 12 months ago. Pt reports he started drinking heavily (1 pint/day) 2 yrs ago after going through a bad divorce States not drinking at all since he wants to be treated for Hep C. Pt has no primary care physician therefore not using lactulose. 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 He reports a positive family hx of alcohol related liver disease in his Dad Patient denies known family history of colon polyps, colon cancer or other GI malignancies. On 01/18/25 @ 15:18 Jamilah Leal Wrote To Jesica Fitzpatrick (2) He can be given Milk of Magnesia 30 ml x1 and prn once a day if he does not have a BM Carolyn! Can you move up his appt to 01/24/25 at 1:45 pm (Also leave the 03/28 appt as is - do not cancel) Thanks On 01/17/25 @ 09:34 Jesica Fitzpatrick Wrote To Jamilah Leal spoke w/ Lindsey, foster care case manager w/ his insurance - she states she is rather concerned about the patient. Lindsey states that patient is not the best historian, reports he is taking the lactulose, patient reports not having BMs throughout the course of the day - sometimes reports 1, sometimes none. patient is a new patient, currently has no PCP and it looks like he is scheduled to see you on March 28. any reccs in the meantime? it looks like this patient was an ED consult! PAST EGD/COLONOSCOPY LABS IN [facility] : Reviewed IMAGING STUDIES: 12/14/[address] SCAN SHOWED: 1. Marked distention of the gallbladder is nonspecific by CT. 2. CT findings of cirrhosis and portal hypertension, with splenomegaly and multiple upper abdominal varices. 12/13/24 ABD US SHOWED: Hepatocellular disease/cirrhosis. No cholelithiasis. No ascites. Questionable hydrops gallbladder. ENDOSCOPIC STUDIES: None in [facility] PAST GI HISTORY BY REVIEW OF MEDICAL RECORDS: 12/14/24 PT WAS SEEN DURING RECENT HOSPITALIZATION: Reason for consult: Abdominal pain 34 YM with substance use disorder, continued to drink 2 pt of alcohol daily, last drink 2 days ago, history of IV drug use stop using few years ago (on metha done), history of hepatitis-C untreated, decompensated liver cirrhosis, restless leg syndrome, anxiety depression seen at [facility] ED on 12/13/24 with right upper quadrant abdominal pain weight gain and abdominal bloating. 03/29/24 Pt was admitted [place] [facility] with seizure in the setting of possible alcohol and benzodiazepine withdrawal. Pt complains of abdominal pain with distension for the past 1 month. He denies fever chills, no nausea, no vomiting, lightheadedness, dizziness, shortness of breath, Pt admits to wt gain of 60 to 100 lbs over the past 3 months. He has chronic leg edema with no worsening. Pt reports having an EGD 6 to 12 months ago. Pt reports he started drinking heavily (1 pint/day) 2 yrs ago after going through a bad divorce Pt has no primary care physician therefore not using lactulose . He reports a positive family hx of alcohol related liver disease in his Dad Lab evaluation in the ED showed magnesium 1.5, ammonia 123, albumin 3, stable renal function, electrolytes and hematocrit, influenza, RSV and SARS negative, LFTs were elevated with total bili 2.5, direct bili 1.5, AST 137, ALT 54, alk- phos 253, (Of note his LFTs are chronically elevated due to underlying liver disease and continued use of alcohol). Patient was admitted to [facility] with RUQ pain and concern for hydrops gallbladder, hypo magnesemia and high likelihood of alcohol withdrawal with history of heavy alcohol use Pt was seen by Dr Beauchamp and advised a HIDA scan Plan 34 with substance use disorder, history of IV drug use (on methadone), history of hepatitis-C untreated, decompensated liver cirrhosis, restless leg syndrome, anxiety depression admitted to [facility] on 12/13/24 with right upper quadrant abdominal pain weight gain and abdominal bloating. Pt admits to wt gain of 60 to 100 lbs over the past 3 months. He has chronic leg edema with no worsening. He reports a positive family hx of alcohol related liver disease in his Dad Patient was admitted to [facility] with RUQ pain and concern for hydrops gallbladder, hypo magnesemia and high likelihood of alcohol withdrawal with history of heavy alcohol use Pt was seen by Dr Beauchamp and advised a HIDA scan Pt has ESLD due to chronic Hep C and METALD complicated by hepatic encephalopathy and GB disease (suspected Hydrops) Lab evaluation in the ED showed magnesium 1.5, ammonia 123, albumin 3, stable renal function, electrolytes and hematocrit, influenza, RSV and SARS negative, LFTs were elevated with total bili 2.5, direct bili 1.5, AST 137, ALT 54, alk- phos 253, (Of note his LFTs are chronically elevated due to underlying liver disease and continued use of alcohol). RECOMMENDATIONS: 1. Agree with IV pain medications and antiemetics 2. [facility] protocol for ETOH withdrawl 3. Await results of HIDA scan 4. If HIDA scan is negative, Abd CT scan with IV contrast for further evaluation of RUQ pain 5. Needs ETOH rehab after discharge to quit drinking 6. Needs to stop drinking before he can be treated for Hep C to ensure compliance with Hep C treatment. [facility] Medical History Alcohol use disorder, severe, dependence Methadone maintenance therapy patient Cirrhosis Edema Alcohol abuse Increased ammonia level Cirrhosis Substance abuse Opiate use Social History Household Members: Other Household Members Other:: brother Housing: House Do you presently have visiting nurse or other home services: No Alcohol intake: current Alcohol intake frequency: former alcohol drinker Alcohol type: hard liquor Comment: pt refuses assistance OOB. Encouraged to call for assistance Patient Tobacco Use Status: Current everyday Tobacco user Tobacco use type: Cigarette Cigarette Packs Per Day: 1 Cigarettes Per Day: 20.0 e-Cigarette/Vaping Use: Currently Using service: No Review of Systems Const All systems reviewed & are unremarkable except as noted in HPI and below Physical Exam Vital Signs: Last Vital Signs Pulse 57 01/24/25 13:47 BP 125/62 01/24/25 13:47 Pulse Ox 96 01/24/25 13:47 Oxygen Delivery Method Room Air 01/24/25 13:47 BMI result Body Mass Index 39.6 Const General: healthy appearing, no acute distress and anxious Nutritional Appearance: obese Orientation/consciousness: patient oriented x3 HEENT Head: Yes normal to inspection Ears: hearing grossly normal bilaterally Eyes Sclerae: sclerae normal Pupils: Equal, round and reactive pupils present Neck Neck: Yes normal visual inspection Chest Chest palpation & inspection: normal inspection of the chest Resp Effort & Inspection: normal respiratory effort Auscultation: clear to auscultation bilaterally Cardio Palpation: normal PMI Rate: regular rate Rhythm: regular rhythm Heart sounds: S1 normal heart sound present, S2 normal heart sound present and no murmurs GI Palpation (GI): Soft to palpation, nontender and No hepatosplenomegaly present Auscultation: normal bowel sounds Rectal Exam - Male: Yes deferred Skin General skin exam: no rashes or lesions noted Neuro General: patient oriented x3, gait normal and moves all extremities Cranial nerves: Yes Equal, round and reactive pupils present Extrem General: Yes pedal edema Psych Appearance: grossly normal Mental Status: mental status grossly normal Assessment & Plan Assessment & Plan (1) Edema: Code(s): R60.9 - Edema, unspecified Category: Medical (2) Chronic constipation: Code(s): K59.09 - Other constipation Category: Medical (3) Cirrhosis: Code(s): K74.60 - Unspecified cirrhosis of liver Category: Medical Plan 34 YM with substance use disorder, history of IV drug use (on methadone), history of hepatitis-C untreated, decompensated liver cirrhosis, restless leg syndrome, anxiety depression hospitalized at [facility] on 12/13 to 12/16/24 with right upper quadrant abdominal pain weight gain and abdominal bloating. He admited to chronic leg edema and wt gain of 60 to 100 lbs over the preceding 3 months. Pt has ESLD due to chronic Hep C and METALD complicated by hepatic encephalopathy and GB disease (suspected Hydrops) LFTs were elevated with total bili 2.5, direct bili 1.5, AST 137, ALT 54, alk- phos 253, (Of note his LFTs are chronically elevated due to underlying liver disease and continued use of alcohol). MELD SCORE is 10. HIDA SCAN SHOWED: There is normal uptake and excretion of the radiopharmaceutical by the liver. Common bile duct activity is seen at 25 minutes. Small bowel activity is noted at 30 minutes. No gallbladder activity is seen to 2 hours. Faint gallbladder activity is noted at 3 hours. There is activity within a distended gallbladder at 4.5 hours. Due to the delayed appearance of the gallbladder, intravenous CCK was not administered. Needs to stop drinking before he can be treated for Hep C to ensure compliance with treatment. Due to cirrhosis, pt will be referred to [facility] for Hep C treatment (after alcohol abstinence for 3 months) since he is at risk of hepatic decompensation when hep C treatment is initiated FU in 5 weeks Orders: Orders Hepatitis A IgG 01/24/25 K74.60 - Unspecified cirrhosis of liver Hepatitis C Viral Load 01/24/25 K74.60 - Unspecified cirrhosis of liver Hepatitis C Genotype 01/24/25 K74.60 - Unspecified cirrhosis of liver Liver Fibrosis Pnl 01/24/25 K74.60 - Unspecified cirrhosis of liver Hepatitis B Profile 01/24/25 K74.60 - Unspecified cirrhosis of liver Hepatitis C Antibody 01/24/25 K74.60 - Unspecified cirrhosis of liver Liver Panel 01/24/25 K74.60 - Unspecified cirrhosis of liver Medications: New furosemide 40 mg PO QAM 60 tabs 3RF 60 days R60.9 - Edema, unspecified linaclotide (Linzess) 145 mcg PO QAM 60 caps 2RF 60 days K59.09 - Other constipation spironolactone 50 mg PO QAM 60 tabs 3RF 60 days Coding Level of Care Code Est Pt Level 4 (16337) Complex EM visit Add On G2211 Diagnoses Edema R60.9 Chronic constipation K59.09 Cirrhosis K74.60 Time Spent (min) 22
[2025-01-24 13:47] VITALS: BP 125/62; PULSE 57; O2SAT 96; BMI 39.6
--- OUTSIDE RECORDS SUMMARY | 2025-01-24 16:43 | XMS_ITS | Clinical Summary ---
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 - 400 K/mcL LAB HEMETOLOGY METHOD 12/21/2024 9:[address] [facility] Comment:reviewed by slide MPV 10.2 7.0 - 11.0 FL LAB HEMETOLOGY METHOD 12/21/2024 9:[address] [facility] NRBC 0.0 <1.0 % LAB HEMETOLOGY METHOD 12/21/2024 9:[address] [facility] NRBC Absolute 0.00 <0.10 K/mcL LAB HEMETOLOGY METHOD 12/21/2024 9:[address] [facility] Neutrophils Relative 52.6 % LAB HEMETOLOGY METHOD 12/21/2024 9:[address] [facility] Lymphocytes Relative 38.8 % LAB HEMETOLOGY METHOD 12/21/2024 9:[address] [facility] Monocytes Relative 7.1 % LAB HEMETOLOGY METHOD 12/21/2024 9:36 AM EDT [facility] Eosinophils Relative 1.0 % LAB HEMETOLOGY METHOD 12/21/2024 9:36 AM EDT [facility] Basophils Relative 0.5 % LAB HEMETOLOGY METHOD 12/21/2024 9:36 AM EDT [facility] Immature Granulocytes Relative 0.0 % LAB HEMETOLOGY METHOD 12/21/2024 9:36 AM EDT [facility] Neutrophils Absolute 2.16 1.50 - 7.00 K/mcL LAB HEMETOLOGY METHOD 12/21/2024 9:36 AM EDT [facility] Lymphocytes Absolute 1.59 1.00 - 5.00 K/mcL LAB HEMETOLOGY METHOD 12/21/2024 9:36 AM EDT [facility] Monocytes Absolute 0.29 0.20 - 1.00 K/mcL LAB HEMETOLOGY METHOD 12/21/2024 9:36 AM EDT [facility] Eosinophils Absolute 0.04 0.00 - 0.50 K/mcL LAB HEMETOLOGY METHOD 12/21/2024 9:36 AM EDT [facility] Basophils Absolute 0.02 0.00 - 0.20 K/mcL LAB HEMETOLOGY METHOD 12/21/2024 9:36 AM EDT [facility] Immature Granulocytes Absolute 0.00 0.00 - 0.03 K/mcL LAB HEMETOLOGY METHOD 12/21/2024 9:36 AM EDT [facility] Blood Venous blood specimen / Unknown Venipuncture / Unknown 12/21/2024 8:38 AM EDT 12/21/2024 9:03 AM EDT us Jake Smith MD LAB BLOOD ORDERABLES Final Res ult [facility] [address] [place] [address], [place] [phone] * Lipase (12/21/2024 8:38 AM EDT) Lipase 51 13 - 75 unit/L LAB CHEMISTRY METHOD 12/21/2024 9:31 AM EDT [facility] Blood Venous blood specimen / Unknown Venipuncture / Unknown 12/21/2024 8:38 AM EDT 12/21/2024 9:03 AM EDT Jake Smith MD LAB BLOOD ORDERABLES Final Res ult [facility] [address] [place] [address], * Ethanol (12/21/2024 8:38 AM EDT) Ethanol Level 4 0 - 10 mg/dL LAB CHEMISTRY METHOD 12/21/2024 4:00 PM EDT [facility] Blood Venous blood specimen / Unknown Venipuncture / Unknown 12/21/2024 8:38 AM EDT 12/21/2024 9:03 AM EDT Phi Javier MD LAB BLOOD ORDERABLES Final Re sult Performing Organization Address [facility]/ZIP Co de Phone Number [facility] [address] [place] [address], from Last 3 Months Insurance [facility] [employer] Advance Directives * Full Code - Default (Latest Code Status on File) Date Activated Date Inactivated Comments 12/21/2024 2:55 PM 12/22/2024 1:07 PM This is orde r is used when code status has not been discussed with the patient, or code status is otherwise unknown/unconfirmed To update the patient's code status, place a code status order. Do not modify or discontinue any currently active code status orders. * Full Code - Default Date Activated Date Inactivated Comments 12/21/2024 2:09 PM 12/21/2024 2:55 PM This is orde r is used when code status has not been discussed with the patient, or code status is otherwise unknown/unconfirmed To update the patient's code status, place a code status order. Do not modify or discontinue any currently active code status orders. Care Teams Behavioral Health Specialist Relationship Specialty Start Date End Date Kim Lemus MD [address] [place] [address] [place] PCP - General Internal Medicine 05/11/19
--- OUTSIDE RECORDS SUMMARY | 2025-01-24 16:43 | XMS_ITS | Referral Summary ---
Author Organization [facility] Address [address] [place] [address] Care Team Providers Care Director Of Retail Operations Name Role Phone Patient, Has No Pcp [...] Date Alcoholic cirrhosis of liver without ascites 02/2024 Cigarette nicotine dependence without complicati on 02/12/2024 Normochromic normocytic anemia 02/12/2024 Metabolic encephalopathy 02/01/2024 Class 1 obesity 01/24/2024 EDINSON (generalized anxiety disorder) 01/24/2024 Elevated LFTs 01/24/2024 Transient alteration of awareness 01/24/2024 History of seizures 01/24/2024 White matter low attenuation on CT of brain 01/08 Alcohol abuse with withdrawal 01/23/2024 H/O: substance abuse 11/27/2015 Overview (01/24/2024): Alcohol, Heroin, Xanax and Ativan from streets. Received records from [facility] in [place] where he was admitted for detox 07/2015: [...] Not on file Procedures * Due to [place] state law, this organization might not be sharing negative HIV tests. Procedure Name Priority Date/Time Associated Diagnosis Comments CT ABDOMEN PELVIS WO CONTRAST Routine 02/02/2024 10:26 AM EDT from Last 3 Months or Most Recently Relevant to Health Maintenance Insurance [facility] [[email or web address] MEDICAID Advance Directives Documents on File Type Date Recorded Patient Product Lister Expl anation Health Care Proxy 02/08/2024 5:53 PM 2023 * Full Code (Latest Code Status on File) Date Activated Date Inactivated Comments 01/23/2024 5:59 PM 02/16/2024 7:48 PM Healthcare Agents on File Name Relationship Healthcare Agent Relationshi p Communication Reny Nicholas Mother Health Care Agent Care Teams Director Of Retail Operations Relationship Specialty Start Date End Date Patient, Has No Pcp Or Ref DO NOT EDIT THIS RECORD VIA PROVIDER ON THE FLY PCP - General University Administrator 02/21/23
--- OUTSIDE RECORDS SUMMARY | 2025-01-24 16:43 | XMS_ITS | Clinical Summary ---
Author Organization [facility] Address [address] [place] [address] Care Team Providers Care Custom Bow Maker Name Role Phone Emelia Ahn ICU RN Primary Care Provider Source Comments PLEASE NOTE, [...] 12/03/2015 Overview (12/03/2015): Dx as noted in [place] records; Reportedly followed [facility] 10/23/08. H/O: substance abuse ([facility]) 11/27/2015 Overview (11/27/2015): Alcohol, Heroin, Xanax and Ativan from streets. Received records from [facility] in [place] where he was admitted for detox 07/2015: Court ordered treatment, had felony charges for drugs. Reportedly he used suboxone in the past but was selling mostly?. He was treated in detox with protocol( also including Hydroxyzine, clonidine, keppra prophylaxis, Remeron, Trazodone prn, Subutex) Depression with anxiety 11/08/2015 Overview (12/03/2015): Inconsistent History. Says that he is now Following with at [facility], [facility]. He brought a letter from his Clinical sewage plant supervisor at [facility] suggesting that he will benefit from Pharmacotherapy. Per [facility] records prior to 2012, he was on Buspar, Trazodone, Effexor, Clonidine, Ativan. Smoking 11/08/2015 Immunizations Immunization Administration Dates Next Due DTAP (DAPTACEL),5 PERTUSSIS [...] to Subscriber:Self Name:RussellLucia Payer ID:[id number] Type:Indemnity Address: [facility] [id number] MEDICAID DENTAL [facility] DENTAL Care Teams Custom Bow Maker Relationship Specialty Start Date End Date Emelia Ahn FNP [address] [place] [id number] PCP - General 12/05/18
--- OUTSIDE RECORDS SUMMARY | 2025-01-24 16:43 | XMS_ITS | Clinical Summary ---
Author Organization [facility] Address [address] [place] [address] Care Team Providers Care Battery Charger Conveyor Line Name Role Phone Patient, Has No Pcp [...] and Ativan from streets. Received records from [facility] in [place] where he was admitted [...] (2 - 2023-2 5 season) 2024 03/11/2021 Alcohol/Substance Use Screening 10/10/2024 Depression Screening and Follow-Up 10/10/2024 Social Drivers of Health Melonie ual Screening 10/10/2024 Influenza Vaccine (Season Ended) 2025 11/14/2020, 06/24/2020, 07/10/2019, Additional history exists RSV Vaccine (60+ years old a nd patients) (1 - 1-dose 75+ series) 2066 Abdominal Aortic Aneurysm (A AA) Screening Completed 12/21/2024, 12/21/2024, 06/30/2024, Additional history exists Procedures * Due to [place] state law, this organization might not be sharing negative HIV tests. Procedure Name Priority Date/Time Associated Diagnosis Comments CT ABDOMEN PELVIS WO CONTRAST Routine 02/02/2024 10:26 AM EDT from Last 3 Months or Most Recently Relevant to Health Maintenance Insurance [facility] MEDICAID Advance Directives Documents on File Type Date Recorded Patient Refinery Process Engineer Expl anation Health Care Proxy 02/08/2024 5:53 PM 2023 * Full Code (Latest Code Status on File) Date Activated Date Inactivated Comments 01/23/2024 5:59 PM 02/16/2024 7:48 PM Healthcare Agents on File Name Relationship Healthcare Agent Relationshi p Communication Reny Nicholas Mother Health Care Agent Care Teams Battery Charger Conveyor Line Relationship Specialty Start Date End Date Patient, Has No Pcp Or Ref DO NOT EDIT THIS RECORD VIA PROVIDER ON THE FLY PCP - General Display Coordinator 02/21/23
== END 2025-01-24 14:33 | disposition home or self-care (01) ==
LOC: HO.HGI 13:40
PROVIDERS: PCP Internal Medicine; Visit Provider Internal Medicine Gastroenterology
DX: R60.9 Edema, unspecified (principal); K59.09 Other constipation; K74.60 Unspecified cirrhosis of liver
CPT/HCPCS: 99214; G2211

== ENCOUNTER → 2025-01-24 13:39 | Outpatient (BNVA) | payer OTHER, SELFPAY | PROVIDERS: PCP Internal Medicine; Visit Provider Internal Medicine Gastroenterology | DX: K74.60 Unspecified cirrhosis of liver (principal); K59.09 Other constipation; R60.9 Edema, unspecified; F10.20 Alcohol dependence, uncomplicated | CPT/HCPCS: 99212 ==

== ENCOUNTER 2025-02-12 11:49 | Inpatient (IN) | payer OTHER, SELFPAY ==
[2025-02-12 12:18] VITALS: BP 148/84; PULSE 85; RESP 20; TEMP 37; O2SAT 98; BMI 35.5
--- NOTE | 2025-02-12 12:27 | ED_ITS ---
HPI - General Adult General Chief complaint: Recheck/Abnormal Lab/Rx Stated complaint: Methadone dose Time Seen by Provider: 02/12/25 13:04 Source: patient and old records reviewed Mode of arrival: ambulatory Limitations: no limitations History of Present Illness ED Provider: SUELLEN LOPEZ narrative: 34 yo male with PMH of opiate use disorder on methadone 85mg missed his dose today goes to [facility], ETOH abuse but has been abstaining, cirrhosis not compliant with his lactulose asking for a script. He is asking for his methadone dose as well as lactulose as he feels off . No chest pain, dyspnea, n/v/d. He states he just feels like his ammonia is high. He denies any other medical issues or concerns. He last dosed yesterday. No trauma or falls. No fevers reported. He initially presented for methadone dose then when I was talking to him he asked for his ammonia levels to be checked. complaint: methadone dose/ammonia levels Onset (ago): day(s) Severity: mild Relieving factors: none Exacerbating factors: none Associated symptoms: confusion Treatments prior to arrival: none Related Data Home Medications ?Medication ?Instructions ?Recorded ?Confirmed methadone 10 mg/mL oral concentrate 85 mg PO DAILY 03/03/24 02/12/25 aripiprazole 15 mg tablet 15 mg DAILY 12/13/24 02/12/25 clonidine HCl 0.1 mg tablet 0.1 mg PO BID 12/13/24 02/12/25 gabapentin 800 mg tablet 800 mg PO TID 12/13/24 02/12/25 multivitamin-iron 9 mg-folic acid 1 tab PO DAILY 12/13/24 02/12/25 400 mcg-calcium and minerals tablet (Therapeutic-M) sertraline 100 mg tablet 100 mg PO DAILY 12/13/24 02/12/25 thiamine HCl (vitamin B1) 100 mg 200 mg PO DAILY 12/13/24 02/12/25 tablet folic acid 1 mg tablet 1 mg PO DAILY 02/12/25 02/12/25 furosemide 40 mg tablet 40 mg PO DAILY 02/12/25 02/12/25 magnesium oxide 400 mg (241.3 mg 400 mg PO DAILY 02/12/25 02/12/25 magnesium) tablet melatonin 5 mg tablet 5 mg PO BEDTIME PRN Sleep 02/12/25 02/12/25 mirtazapine 7.5 mg tablet 7.5 mg PO DAILY 02/12/25 02/12/25 spironolactone 50 mg tablet 50 mg PO DAILY 02/12/25 02/12/25 tamsulosin 0.4 mg capsule 0.4 mg PO DAILY 02/12/25 02/12/25 Previous Rx's ?Medication ?Instructions ?Recorded lorazepam 0.5 mg tablet 0.5 mg PO BID #10 tabs 12/16/24 lactulose 10 gram/15 mL oral 20 g (30 mL) PO TID #3,000 mL 02/12/25 solution (Constulose) Allergies Allergy/AdvReac Type Severity Reaction Status Date / Time fish derived [fish] Allergy Anaphylaxis Verified 02/12/25 12:21 shellfish derived Allergy Anaphylaxis Verified 02/12/25 12:21 Review of Systems 2 Review of Systems: Constitutional : No Fever, No Chills, No Fatigue, pos brain fog ENT/Mouth : No sore throat, No Rhinorrhea Eyes: No Eye Pain, No Swelling, No Redness Cardiovascular : No Chest Pain, No SOB, No Dyspnea on Exertion Respiratory : No Cough, No Sputum Gastrointestinal : No Nausea, No Vomiting, No Diarrhea, No abdominal Pain Genitourinary : No Dysuria, No Urinary Frequency, No Hematuria, Musculoskeletal : No joint pain, No Myalgias, No Joint Swelling Skin : No Skin Lesions, No rash Neuro : No Weakness, No Numbness, No Dizziness, no Headache Psych : No Anxiety/Panic, No Depression, no SI All other systems reviewed and are negative PMFSH Past Medical History Attestation statement: The following information was validated with the patient. Source: old records reviewed Medical History Increased ammonia level Cirrhosis Substance abuse Opiate use Social History Social History Household Members: Other Household Members Other:: brother Housing: House Do you presently have visiting nurse or other home services: No Alcohol intake: current Alcohol intake frequency: former alcohol drinker Alcohol type: hard liquor Comment: refuses alarms Patient Tobacco Use Status: Current everyday Tobacco user Tobacco use type: Cigarette Cigarette Packs Per Day: 1 Cigarettes Per Day: 20.0 e-Cigarette/Vaping Use: Currently Using service: No Physical Exam ED Vital Signs: Vital Signs - 24 hr 02/12/25 12:18 Temperature 98.6 F Pulse Rate 85 Respiratory Rate 20 Blood Pressure 148/84 H Pulse Oximetry 98 Oxygen Delivery Method Room Air BMI result Body Mass Index 35.5 Appearance: Alert. Oriented X3. No acute distress. alert and oriented, no asterixis no tremors Eyes: Pupils equal, round and reactive to light. ENT: Pharynx normal. Neck: Normal inspection. Neck supple. CVS: Normal heart rate and rhythm. Pulses normal. Respiratory: No respiratory distress. Breath sounds normal. Abdomen: Soft and nontender. Skin: Skin warm and dry. Normal skin color. Normal skin turgor. Extremities: No lower extremity edema. No calf ttp Neuro: Oriented X 3. No motor deficit. No sensory deficit. CN2-12 intact Course Course Course Narrative: RME: 33-year-old male presents to the ED need to get his methadone dose. Patient states 220mg for marrow sister is his dose. Patient admits to today by couple of minutes. Patient is asymptomatic -1435--leukopenic to 3.2. H/H around patient's baseline. Chronic transaminitis. Ammonia elevated to 135 > plan to admit for further management >> upon further discussion with patient states he was acting erratic/doing somersaults in his front yard a few days ago and actually arrested for and OUI. States he does not remember all events of incident & denies using drugs at the time/etoh > concern this is due to his elevated ammonia -patient admitted to hospitalist service 1513 Medications Administered Generic Name Dose Route Start Last Admin Trade Name Sonia PRN Reason Stop Dose Admin Clonidine HCl 0.1 mg 02/13/25 10:35 02/13/25 20:05 Clonidine Hcl 0.1 Mg Tablet PO 0.1 mg BID LU Administration Protocol Folic Acid 1 mg 02/13/25 09:00 02/13/25 10:22 Folic Acid 1 Mg Tablet PO 1 mg DAILY LU Administration Furosemide 40 mg 02/13/25 10:35 02/13/25 11:32 Furosemide 40 Mg/4 Ml Vial IVPUSH 40 mg DAILY LU Administration Protocol Gabapentin 200 mg 02/13/25 15:00 02/13/25 20:05 Gabapentin 100 Mg Capsule PO 200 mg TID LU Administration Lactulose 30 gm 02/13/25 13:00 02/13/25 20:11 Lactulose 20 Gm/30 Ml Solution PO Not Given QID LU Lorazepam 0.25 mg 02/12/25 16:57 02/13/25 11:30 Lorazepam 0.5 Mg Tablet PO 0.25 mg BID PRN Administration anxiety/restlessness Methadone HCl 85 mg 02/13/25 10:35 02/13/25 11:38 Methadone Hcl 20 Mg/2 Ml Oral.Conc PO 85 mg DAILY LU Administration Morphine Sulfate 15 mg 02/13/25 11:37 02/13/25 22:33 Morphine Sulfate Immed Release 15 Mg Tablet PO 15 mg Q8H PRN Administration Pain, Severe (Pain Scale 7-10) Phenobarbital 45 mg 02/13/25 09:00 02/13/25 20:05 Phenobarbital 15 Mg Tablet PO 02/14/25 21:01 45 mg BID LU Administration Protocol Rifaximin 550 mg 02/12/25 21:00 02/13/25 20:04 Rifaximin 550 Mg Tablet PO 550 mg BID LU Administration Sertraline HCl 100 mg 02/13/25 09:00 02/13/25 10:22 Sertraline Hcl 100 Mg Tablet PO 100 mg DAILY LU Administration Sodium Chloride 3 ml 02/12/25 16:00 02/13/25 20:06 0.9 % Sodium Chloride Flush 3 Ml Syringe IVFLUSH 3 ml QSHIFT [facility] Administration Spironolactone 50 mg 02/13/25 09:00 02/13/25 10:18 Spironolactone 25 Mg Tablet PO 50 mg DAILY LU Administration Protocol Tamsulosin HCl 0.4 mg 02/13/25 09:00 02/13/25 10:22 Tamsulosin Hcl 0.4 Mg Capsule PO 0.4 mg DAILY LU Administration Thiamine HCl 100 mg 02/13/25 09:00 02/13/25 10:22 Thiamine Hcl 100 Mg Tablet PO 100 mg DAILY LU Administration Discontinued Medications Generic Name Dose Route Start Last Admin Trade Name Freq PRN Reason Stop Dose Admin Furosemide 40 mg 02/12/25 17:20 02/12/25 18:31 Furosemide 40 Mg/4 Ml Vial IVPUSH 02/12/25 17:21 40 mg ONCE ONE Administration Protocol Lactulose 30 gm 02/12/25 14:36 02/12/25 14:55 Lactulose 20 Gm/30 Ml Solution PO 02/12/25 14:37 30 gm ONCE ONE Administration Lactulose 30 gm 02/12/25 21:00 02/13/25 10:22 Lactulose 20 Gm/30 Ml Solution PO 30 gm TID LU Administration Lorazepam 0.5 mg 02/12/25 21:19 02/12/25 21:47 Lorazepam 0.5 Mg Tablet PO 02/12/25 21:20 0.5 mg ONCE ONE Administration Methadone HCl 85 mg 02/12/25 14:00 02/12/25 14:15 Methadone Hcl 20 Mg/2 Ml Oral.Conc PO 02/12/25 14:01 85 mg ONCE ONE Administration Morphine Sulfate 15 mg 02/12/25 22:12 02/12/25 22:46 Morphine Sulfate Immed Release 15 Mg Tablet PO 02/12/25 22:13 15 mg ONCE ONE Administration Phenobarbital Sodium 255 mg 02/12/25 20:00 02/12/25 20:29 Phenobarbital Sodium 130 Mg/Ml Im Once IM 02/12/25 20:01 255 mg ONCE ONE Administration Protocol Phenobarbital Sodium 192 mg 02/12/25 23:00 02/13/25 02:55 Phenobarbital Sodium 130 Mg/Ml Vial Im Q3hx2 IM 02/13/25 02:01 192 mg Q3H LU Administration Protocol Tramadol HCl 50 mg 02/13/25 05:47 02/13/25 06:02 Tramadol Hcl 50 Mg Tablet PO 02/13/25 05:48 50 mg ONCE ONE Administration Medical Decision Making Medical Decision Making [facility] Narrative: 34 yo male with PMH of opiate use disorder on methadone 85mg missed his dose today goes to [facility], ETOH abuse but has been abstaining, cirrhosis here with missed methadone dose will give dose now he is not exhibiting withdrawal symptoms. He also c/o not taking his lactulose and wants to get a dose here. I advised if he is having brain fog given his history we should be obtaining ammonia levels. At this time dose with methadone and obtain ammonia levels signed out to Omkar ROBERTO Differential Diagnosis Differential Diagnoses: The differential diagnosis associated with the presentation includes methadone dose, hepatic encephalopathy, abnormal labs Admission/Observation Consideration of admission/observation: Escalation of care including admission/observation considered Lab Data [facility] Lab Attestation statement: I reviewed the patient's lab results. 02/12/25 13:39 02/13/25 05:53 Labs: Lab Results 05/06/25 Range/Units 13:39 WBC 3.2 L (4.8-10.8) X10*3/uL RBC 4.54 L (4.60-5.80) X10*6/uL Hgb 13.8 L (14.0-18.0) g/dl Hct 40.4 L (42.0-52.0) % MCV 89.0 (80.0-98.0) fL MCH 30.4 (27.0-33.0) pg MCHC 34.2 (31.0-36.0) g/dl RDW 14.2 (11.0-16.0) % Plt Count 59 L (160-400) X10*3/uL MPV 11.2 (9.4-12.4) fL Immature Gran % (Auto) 0.3 (0.0-0.4) % Neut % (Auto) 54.4 (45-73) % Lymph % (Auto) 35.8 (20-40) % Eagle % (Auto) 8.3 (2-11) % Eos % (Auto) 0.9 (0-4) % Baso % (Auto) 0.3 (0-2) % Lymph # (Auto) 1.2 (1.2-4.9) X10*3/uL Eagle # (Auto) 0.3 (0.1-1.2) X10*3/uL Eos # (Auto) 0.0 (0.0-0.4) X10*3/uL Baso # (Auto) 0.0 (0.0-0.2) X10*3/uL Abs Immat Gran (auto) 0.01 (0.00-0.03) X10*3/uL Absolute Neuts (auto) 1.8 L (2.0-8.3) x10*3/uL Absolute Nucleated RBC 0.000 (0.0-0.012) X10*3/uL Nucleated RBC % (auto) 0.0 (0.0-0.2) /100WBC Sodium 137 (135-145) mmol/L Potassium 4.1 (3.3-5.1) mmol/L Chloride 106 (96-108) mmol/L Carbon Dioxide 25 (22-29) mmol/L Anion Gap 10 L (12-20) BUN 8 L (9-16) mg/dL Creatinine 0.63 (0.5-1.4) mg/dL Estim Creat Clear Calc 184.4 Estimated GFR > 60 Random Glucose 121 H (60-115) mg/dL Calcium 8.2 L D (8.4-10.2) mg/dL Magnesium 1.6 (1.6-2.6) mg/dL Total Bilirubin 2.3 H (0.0-1.0) mg/dL Direct Bilirubin 1.4 H (0.0-0.5) mg/dL AST 164 H (5-37) U/L ALT 114 H (0-40) U/L Alkaline Phosphatase 192 H (39-117) U/L Ammonia 135 H (13-55) umol/L Total Protein 7.0 (6.5-8.0) g/dL Albumin 3.1 L (3.5-5.0) g/dL External Record Review External record reviewed: Outpatient record Prescription Management I considered prescription management with: Other Discharge Plan Discharge Clinical Impression: Encephalopathy, Methadone maintenance therapy patient, Increased ammonia level Cirrhosis Qualifiers: Hepatic cirrhosis type: unspecified hepatic cirrhosis Ascites presence: without ascites Qualified Code(s): K74.60 - Unspecified cirrhosis of liver Patient Disposition: Admitted As Inpatient Interventions: Admission Worksheet (ED) Last Done: 02/13/25 07:35 Discharge Date/Time: 02/13/25 08:43
--- NOTE | 2025-02-12 13:19 | PC.NURSE ---
tremayne Bobo verified Methadone dose with Carin CONTRERAS. Last dose was 02/11/25 at 1119 at 85mg, provider aware
[2025-02-12 13:46] LABS: MANUAL DIFF FLAG NO
[2025-02-12 13:49] LABS: Basophils Percent Auto 0.3 % (0-2); Eosinophils Percent Auto 0.9 % (0-4); Hematocrit 40.4 % (42.0-52.0); Hemoglobin 13.8 g/dl (14.0-18.0); Imm Gran Abs Auto 0.01 X10*3/uL (0.00-0.03); Imm Gran Pct Auto 0.3 % (0.0-0.4); Lymphocytes Absolute Auto 1.2 X10*3/uL (1.2-4.9); Lymphocytes Percent Auto 35.8 % (20-40); Mean Corpuscular HGB Conc 34.2 g/dl (31.0-36.0); Mean Corpuscular Hemoglobin 30.4 pg (27.0-33.0); Mean Platelet Volume 11.2 fL (9.4-12.4); Monocytes Absolute Auto 0.3 X10*3/uL (0.1-1.2); Monocytes Percent Auto 8.3 % (2-11); Neutrophils Absolute Auto 1.8 x10*3/uL (2.0-8.3); Neutrophils Percent Auto 54.4 % (45-73); Platelet Count 59 X10*3/uL (160-400); Red Blood Count 4.54 X10*6/uL (4.60-5.80); Red Cell Distribution Width 14.2 % (11.0-16.0); White Blood Count 3.2 X10*3/uL (4.8-10.8)
[2025-02-12 13:55] LABS: Ammonia 135 umol/L (13-55)
--- NOTE | 2025-02-12 13:58 | HE.PHANOTE ---
METHADONE Pt received 85 mg on 02/11/25 from [facility] per Carin at facility.
[2025-02-12] MEDS: methADONE HCl 20 MG/2 ML ORAL.CONC 85 MG PO (14:15)
[2025-02-12 14:17] LABS: Alanine Aminotransferase 114 U/L (0-40); Albumin Level 3.1 g/dL (3.5-5.0); Anion Gap 10 (12-20); Aspartate Amino Transferase 164 U/L (5-37); Bilirubin Direct 1.4 mg/dL (0.0-0.5); Bilirubin Total 2.3 mg/dL (0.0-1.0); Blood Urea Nitrogen 8 mg/dL (9-16); Calcium 8.2 mg/dL (8.4-10.2); Carbon Dioxide 25 mmol/L (22-29); Chloride 106 mmol/L (96-108); Creatinine Clr Calc Pharmacy 184.4; Estimated Glomerular Filt Rate > 60; Glucose Random 121 mg/dL (60-115); Potassium 4.1 mmol/L (3.3-5.1); Sodium 137 mmol/L (135-145)
--- OUTSIDE RECORDS SUMMARY | 2025-02-12 14:37 | XMS_ITS | Referral Summary ---
Author Organization [facility] Address [address] [place] [address] Care Team Providers Care Youth Agent Name Role Phone Patient, Has No Pcp [...] and Ativan from streets. [facility] [place] [facility] for detox 07/2015: [...] EDT Plan of Treatment Not on file Insurance [facility] MEDICAID Advance Directives Documents on File Type Date Recorded Patient Compo Caster Expl anation Health Care Proxy 02/08/2024 5:53 PM 2023 * Full Code (Latest Code Status on File) Date Activated Date Inactivated Comments 01/23/2024 5:59 PM 02/16/2024 7:48 PM Healthcare Agents on File Name Relationship Healthcare Agent Relationshi p Communication Reny Nicholas Mother Health Care Agent Care Teams Youth Agent Relationship Specialty Start Date End Date Patient, Has No Pcp Or Ref DO NOT EDIT THIS RECORD VIA PROVIDER ON THE FLY PCP - General Electrical Tester 02/21/23
--- OUTSIDE RECORDS SUMMARY | 2025-02-12 14:37 | XMS_ITS | Clinical Summary ---
Author Organization [facility] Address [address] [place] [address] Care Team Providers Care Office Technology Professor Name Role Phone Emelia Ahn CHIEF WRITER Primary Care Provider [phone] Source Comments PLEASE NOTE, if this patient [...] 12/03/2015 Overview (12/03/2015): Dx as noted in [facility] records; Reportedly followed [facility] 10/23/08. H/O: substance abuse ([facility]) 11/27/2015 Overview (11/27/2015): Alcohol, Heroin, Xanax and Ativan from streets. Received records from [facility] in [place] where he was admitted for detox 07/2015: Court ordered treatment, had felony charges for drugs. Reportedly he used suboxone in the past but was selling mostly?. He was treated in detox with protocol( also including Hydroxyzine, clonidine, keppra prophylaxis, Remeron, Trazodone prn, Subutex) Depression with anxiety 11/08/2015 Overview (12/03/2015): Inconsistent History. Says that he is now Following with at [facility], [facility]. He brought a letter from his Clinical property management supervisor at [facility] suggesting that he will benefit from Pharmacotherapy. Per [facility] records prior to 2012, he was on Buspar, Trazodone, Effexor, Clonidine, Ativan. Smoking 11/08/2015 Immunizations Immunization Administration Dates Next Due DTAP (DAPTACEL),5 PERTUSSIS ANTIGENS ,08/05/1992,1991,08/21 HEP B, PED/ADOL 06/11/2004,04/16/2003 Hib (PRP-OMP) (PedvaxHIB) 1991,1991 History Of Varicella 06/09/1993 IPV (IPOL) 12/05/1996, 6,1991,08/21 MENINGOCOCCAL MPSV4 06/01/2007 MMR (MMR [...] of Treatment Not on file Insurance [employer] Member Subscriber Plan / Payer (Ef fective 2015-Present) Name:LUCIA RUSSELL Relation to Subscriber:Self Name:Lucia Russell Nahomy Payer ID:[id number] Type:Indemnity Address: [facility] [id number] [place] [address] [place] [facility] DENTAL Care Teams Office Technology Professor Relationship Specialty Start Date End Date Emelia Ahn FNP [address] [place] [address] [facility] - General 12/05/18
--- OUTSIDE RECORDS SUMMARY | 2025-02-12 14:37 | XMS_ITS | Clinical Summary ---
Author Organization [facility] Address [address] [place] [address] Care Team Providers Care Social Sciences Research Scientist Name Role Phone Patient, Has No Pcp [...] Ativan from streets. 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
--- OUTSIDE RECORDS SUMMARY | 2025-02-12 14:37 | XMS_ITS | Clinical Summary ---
Author Organization [facility] Address [address] [place] [address] Phone Care Team Providers Care Truckload Checker Name Role Phone Kim Lemus MD Primary Care Provider [phone] Allergies No known active allergies Medications ARIPiprazole [...] for 14 days. 42 tablet 12/22/2024 Active thiamine 100 mg tablet Take 1 tablet (100 mg total) by mouth 1 (one) time each day. 30 tablet 12/23/2024 01/23/20 25 Active Problems Problem Noted Date Diagnosed Date Hepatic encephalopathy (CMS/HCC V24, CMS/HCC V28 ) 12/21/2024 Right upper quadrant abdominal pain 12/21/2024 Encounters Date Type Department Care Team Description 12/21/2024 7:42 AM EDT - 12/22/2024 11:02 AM EDT Hospital Encounter [facility] [address] [place] [address] Jake Smith MD Flores, Carlos M, MD Rasul, Yar M, MD Right upper quadrant abdominal pain (Primary Dx); Hepatic encephalopathy (CMS/HCC V24, CMS/HCC V28) Discharge Disposition: Home or Self Care [...] LAB CHEMISTRY METHOD 12/22/2024 7:10 AM EDT [facility] Bilirubin, Direct 1.3(H) 0.0 - 0.3 mg/dL LAB CHEMISTRY METHOD 12/22/2024 7:10 AM EDT [facility] Bilirubin, Indirect 0.9 0.0 - 1.1 mg/dL LAB CHEMISTRY METHOD 12/22/2024 7:10 AM EDT [facility] Blood Venous blood specimen / Unknown Venipuncture / Unknown 12/22/2024 6:10 AM EDT 12/22/2024 6:23 AM EDT us Reed ROBERTO LAB BLOOD ORDERABLES Final Res ult [facility] [address] [place] [address], * Lavender tube (12/22/2024 6:10 AM EDT) Extra Tube Hold for add-ons. 12/22/2024 8:01 AM EDT [facility] Comment:Auto resulted. Blood Venous blood specimen / Unknown 12/22/2024 6:10 AM EDT 12/22/2024 6:25 AM EDT us Matthew Stubbs MD LAB BLOOD ORDERABLES Final Resul t Performing Organization Address [facility]/ZIP Co de Phone Number [facility] [address] [place] [address], [place] [phone] * Activated partial thromboplastin time (12/22/2024 6:10 AM EDT) aPTT 37.0 24.1 - 39.3 sec LAB COAGULATION METHOD 12/22/2024 6:52 AM EDT [facility] Blood Venous blood specimen / Unknown Venipuncture / Unknown 12/22/2024 6:10 AM EDT 12/22/2024 6:19 AM EDT Reed ROBERTO LAB BLOOD ORDERABLES Final Res ult Performing Organization Address [facility] Co de Phone Number [facility] [address] [place] [address], [place] [phone] * (ABNORMAL) Prothrombin time with INR (12/22/2024 6:10 AM EDT) Only the most recent of2 resultswithin the time period is included. Protime 15.0(H) 10.6 - 13.9 sec LAB COAGULATION METHOD 12/22/2024 6:52 AM EDT [facility] INR 1.2 LAB COAGULATION METHOD 12/22/2024 6:52 AM EDT [facility] Blood Venous blood specimen / Unknown Venipuncture / Unknown 12/22/2024 6:10 AM EDT 12/22/2024 6:19 AM EDT us Reed ROBERTO LAB BLOOD ORDERABLES Final Res ult Performing Organization Address City/[facility]/ZIP Co de Phone Number [facility] [address] [place] [address], [place] [phone] * (ABNORMAL) Comprehensive metabolic panel (12/22/2024 6:10 AM EDT) Only the most recent of2 resultswithin the time period is included. Sodium 137 133 - 145 mmol/L LAB CHEMISTRY METHOD 12/22/2024 7:10 AM [facility] Potassium 3.9 3.5 - 5.5 mmol/L LAB CHEMISTRY METHOD 12/22/2024 7:10 AM [facility] Chloride 103 96 - 110 mmol/L LAB CHEMISTRY METHOD 12/22/2024 7:10 AM [facility] CO2 26 21 - 32 mmol/L LAB CHEMISTRY METHOD 12/22/2024 7:10 AM [facility] Anion Gap 8 3 - 11 LAB CHEMISTRY METHOD 12/22/2024 7:10 AM [facility] Glucose 85 70 - 100 mg/dL LAB CHEMISTRY METHOD 12/22/2024 7:10 AM [facility] BUN 13 5 - 25 mg/dL LAB CHEMISTRY METHOD 12/22/2024 7:10 AM [facility] Creatinine 0.67(L) 0.70 - 1.30 mg/dL LAB CHEMISTRY METHOD 12/22/2024 7:10 AM [facility] eGFR 126 >=60 mL/min/1. 73m2 LAB CHEMISTRY METHOD 12/22/2024 7:10 AM [facility] Comment:Calculation based on the??Chronic Kidney Disease Epidemiology Collaboration (CKD-EPI) equation refit??without adjustment for race. BUN/Creatinine Ratio 19.4 LAB CHEMISTRY METHOD 12/22/2024 7:10 AM [facility] Calcium 8.3(L) 8.5 - 10.5 mg/dL LAB CHEMISTRY METHOD 12/22/2024 7:10 AM [facility] AST (SGOT) 138(H) 10 - 42 unit/L LAB CHEMISTRY METHOD 12/22/2024 7:10 AM [facility] ALT (SGPT) 61(H) 10 - 60 unit/L LAB CHEMISTRY METHOD 12/22/2024 7:10 AM EDT [facility] Alkaline Phosphatase 194(H) 42 - 121 unit/L LAB CHEMISTRY METHOD 12/22/2024 7:10 AM EDT [facility] Total Protein 6.7 6.0 - 8.0 g/dL LAB CHEMISTRY METHOD 12/22/2024 7:10 AM EDT [facility] Albumin 2.6(L) 3.2 - 5.0 g/dL LAB CHEMISTRY METHOD 12/22/2024 7:10 AM EDT [facility] Total Bilirubin 2.2(H) 0.0 - 1.4 mg/dL LAB CHEMISTRY METHOD 12/22/2024 7:10 AM EDT [facility] Blood Venous blood specimen / Unknown Venipuncture / Unknown 12/22/2024 6:10 AM EDT 12/22/2024 6:23 AM EDT us Reed ROBERTO LAB BLOOD ORDERABLES Final Res ult [facility] [address] [place] [address], [place] [phone] * (ABNORMAL) Ammonia (12/22/2024 6:09 AM EDT) Only the most recent of2 resultswithin the time period is included. Ammonia 79(H) 11 - 35 mcmol/L LAB CHEMISTRY METHOD 12/22/2024 6:53 AM EDT [facility] Blood Venous blood specimen / Unknown Venipuncture / Unknown 12/22/2024 6:09 AM EDT 12/22/2024 6:16 AM EDT us Reed ROBERTO LAB BLOOD ORDERABLES Final Res ult [facility] [address] [place] [address], * MR Abdomen wo Contrast MRCP (12/21/2024 [...] by: Kaila Villalba MD on 12/21/2024 20:47:01 Phi Javier MD IM MRI PROCEDURES Final Resu lt * (ABNORMAL) Drug abuse screen expanded with reflex confirmation, urine (12/21/2024 5:23 PM EDT) Amphetamine Screen, Ur Negative Negative LAB CHEMISTRY METHOD 5 6:06 PM [facility] Comment:Certain OTC medicati ons containing ephedrine, phenylephrine, pseudoephedrine and phenylpropanolamine can cause false positive results. Barbiturate Screen, Ur Positive(A ) Negative [facility] 5 [facility] Benzodiazepine Screen, Ur Negative Negative LAB CHEMISTRY METHOD 5 6:06 PM [facility] Cocaine Screen, Ur Negative Negative LAB CHEMISTRY METHOD 5 6:06 PM [facility] Opiate Screen, Ur Positive(A ) Negative LAB CHEMISTRY METHOD 5 6:06 PM [facility] Cannabinoid (THC) Screen, Ur Negative Negative LAB CHEMISTRY METHOD 5 6:06 PM [facility] Comment:Specimens from patie nts taking pantoprazole sodium (Protonix) have been shown to produce false positive results. Fentanyl, Ur Negative Negative LAB CHEMISTRY METHOD 5 6:06 PM [facility] Oxycodone Screen, Ur Positive(A ) Negative LAB CHEMISTRY METHOD 5 6:06 PM [facility] Urine Urine specimen obtained by clean catch procedure / Unknown Non-blood Collection / Unknown 12/21/2024 5:23 PM EDT 12/21/2024 5:35 PM EDT Narrative [facility] - 12/21/2024 6:06 PM EDT Assay [...] MD LAB URINE ORDERABLES Final Res ult [facility] [address] [place] [address], * Opiates confirmation, urine (12/21/2024 5:23 PM [...] developed and the performance characteristics determined by [facility]. This confirmation testing has not been cleared or approved by the FDA. The laboratory is regulated under CLIA as qualified to perform high-complexity testing. This test is used for patient testing purposes. It should not be regarded as investigational or for research. Test performed at [facility], [address] , [place], [place] ??[address] ? [phone] Marta De León MD, PhD - Computer Systems Engineer Urine Urine specimen obtained by clean catch procedure / Unknown Non-blood Collection / Unknown 12/21/2024 5:23 PM EDT 12/21/2024 6:06 PM EDT us Jake Smith MD LAB URINE ORDERABLES Final Res ult [facility] [address] [place] [address] * Barbiturate, quantitative, urine (12/21/2024 5:23 PM EDT) [facility] Signature Amobarbital Confirm, Urine Negative ng/mL 12/24/2024 4:28 [...] developed and the performance characteristics determined by [facility]. This confirmation testing has not been cleared or approved by the FDA. The laboratory is regulated under CLIA as qualified to perform high-complexity testing. This test is used for patient testing purposes. It should not be regarded as investigational or for research. Test performed at [facility], [address] , [place], [place] ??[address] ? [phone] Marta De León MD, PhD - Computer Systems Engineer Urine Urine specimen obtained by clean catch procedure / Unknown Non-blood Collection / Unknown 12/21/2024 5:23 PM EDT 12/21/2024 6:06 PM EDT us Jake Smith MD LAB URINE ORDERABLES Final Res ult [facility] [address] [place] [address] * (ABNORMAL) Urinalysis with reflex microscopic (12/21/2024 5:22 PM EDT) Specific [place] Urine 1.032(H) 1.003 - 1.030 LAB URINALYSIS - AUTOMATED METHOD 12/21/2024 5:42 PM EDT [facility] pH, Urine 6.0 5.0 - 8.0 pH LAB URINALYSIS - AUTOMATED METHOD 12/21/2024 5:42 PM [facility] Leukocytes, Urine Negative Negative LAB URINALYSIS - AUTOMATED METHOD 12/21/2024 5:42 PM [facility] Nitrite, Urine Negative Negative LAB URINALYSIS - AUTOMATED METHOD 12/21/2024 5:42 PM [facility] Protein, Urine Negative <=Trace mg/dL LAB URINALYSIS - AUTOMATED METHOD 12/21/2024 5:42 PM [facility] Glucose, Urine Negative Negative mg/dL LAB URINALYSIS - AUTOMATED METHOD 12/21/2024 5:42 PM [facility] Ketones, Urine Negative Negative mg/dL LAB URINALYSIS - AUTOMATED METHOD 12/21/2024 5:42 PM EDT [facility] Urobilinogen, Urine 1.0 0.2 - 1.0 mg/dL LAB URINALYSIS - AUTOMATED METHOD 12/21/2024 5:42 PM EDT [facility] Bilirubin, Urine Negative Negative LAB URINALYSIS - AUTOMATED METHOD 12/21/2024 5:42 PM EDT [facility] Blood, Urine Negative Negative LAB URINALYSIS - AUTOMATED METHOD 12/21/2024 5:42 PM EDT [facility] Urine Urine specimen obtained by clean catch procedure / Unknown Non-blood Collection / Unknown 12/21/2024 5:22 PM EDT 12/21/2024 5:35 PM EDT us Jake Smith MD LAB URINE ORDERABLES Final Res ult [facility] [address] [place] [address], [place] [phone] * CT Abdomen Pelvis w Contrast (12/21/2024 [...] Signed Date: 12/21/2024 10:27 ET Workstation ID: [id number] Transcribed By: Self Edit Transcribed Date: 12/21/2024 [...] Signed Date: 12/21/2024 10:27 ET Workstation ID: [id number] Transcribed By: Self Edit Transcribed Date: 12/21/2024 10:20 ET Jake Smith MD [facility] PROCEDURES Final Result * (ABNORMAL) CBC auto differential (12/21/2024 8:38 AM EDT) WBC 4.1(L) 4.8 - 10.8 K/[facility] LAB HEMETOLOGY METHOD 12/21/2024 9:36 AM EDT [facility] RBC 4.40(L) 4.50 - 5.50 M/[facility] LAB HEMETOLOGY METHOD 12/21/2024 9:36 AM EDT [facility] Hemoglobin 13.5 13.5 - 17.5 g/dL LAB HEMETOLOGY METHOD 12/21/2024 9:36 AM EDT [facility] Hematocrit 40.1(L) 42.0 - 54.0 % LAB HEMETOLOGY METHOD 12/21/2024 9:36 AM [facility] MCV 92.0 79.0 - 98.0 FL LAB HEMETOLOGY METHOD 12/21/2024 9:36 AM [facility] MCH 31.0 27.0 - 32.0 pcg LAB HEMETOLOGY METHOD 12/21/2024 9:36 AM [facility] MCHC 33.7 32.0 - 37.0 g/dL LAB HEMETOLOGY METHOD 12/21/2024 9:36 AM [facility] RDW 15.1(H) 11.0 - 15.0 % LAB HEMETOLOGY METHOD 12/21/2024 9:36 AM [facility] Platelets 73(L) 130 - 400 K/mcL LAB HEMETOLOGY METHOD 12/21/2024 9:36 AM [facility] Comment:reviewed by slide MPV 10.2 7.0 - 11.0 FL LAB HEMETOLOGY METHOD 12/21/2024 9:36 AM [facility] NRBC 0.0 <1.0 % LAB HEMETOLOGY METHOD 12/21/2024 9:36 AM [facility] NRBC Absolute 0.00 <0.10 K/mcL LAB HEMETOLOGY METHOD 12/21/2024 9:36 AM [facility] Neutrophils Relative 52.6 % LAB HEMETOLOGY METHOD 12/21/2024 9:36 AM [facility] Lymphocytes Relative 38.8 % LAB HEMETOLOGY METHOD 12/21/2024 9:36 AM [facility] Monocytes Relative 7.1 % LAB HEMETOLOGY METHOD 12/21/2024 9:36 AM [facility] Eosinophils Relative 1.0 % LAB HEMETOLOGY METHOD 12/21/2024 9:36 AM EDT [facility] Basophils Relative 0.5 % LAB HEMETOLOGY METHOD 12/21/2024 9:36 AM EDT [facility] Immature Granulocytes Relative 0.0 % LAB HEMETOLOGY METHOD 12/21/2024 9:36 AM EDT [facility] Neutrophils Absolute 2.16 1.50 - 7.00 K/mcL LAB HEMETOLOGY METHOD 12/21/2024 9:36 AM EDT [facility] Lymphocytes Absolute 1.59 1.00 - 5.00 K/mcL LAB HEMETOLOGY METHOD 12/21/2024 9:36 AM EDT [facility] Monocytes Absolute 0.29 0.20 - 1.00 K/mcL LAB HEMETOLOGY METHOD 12/21/2024 9:36 AM EDT [facility] Eosinophils Absolute 0.04 0.00 - 0.50 K/mcL LAB HEMETOLOGY METHOD 12/21/2024 9:36 AM EDT [facility] Basophils Absolute 0.02 0.00 - 0.20 K/mcL LAB HEMETOLOGY METHOD 12/21/2024 9:36 AM EDT [facility] Immature Granulocytes Absolute 0.00 0.00 - 0.03 K/mcL LAB HEMETOLOGY METHOD 12/21/2024 9:36 AM EDT [facility] Blood Venous blood specimen / Unknown Venipuncture / Unknown 12/21/2024 8:38 AM EDT 12/21/2024 9:03 AM EDT us Jake Smith MD LAB BLOOD ORDERABLES Final Res ult [facility] [address] [place] [address], * Lipase (12/21/2024 8:38 AM EDT) Lipase 51 13 - 75 unit/L LAB CHEMISTRY METHOD 12/21/2024 9:31 AM EDT [facility] Blood Venous blood specimen / Unknown Venipuncture / Unknown 12/21/2024 8:38 AM EDT 12/21/2024 9:03 AM EDT us Jake Smith MD LAB BLOOD ORDERABLES Final Res ult Performing Organization Address [facility]/ZIP Co de Phone Number [facility] [address] [place] [address], [place] [phone] * Ethanol (12/21/2024 8:38 AM EDT) Ethanol Level 4 0 - 10 mg/dL LAB CHEMISTRY METHOD 12/21/2024 4:00 PM EDT [facility] Blood Venous blood specimen / Unknown Venipuncture / Unknown 12/21/2024 8:38 AM EDT 12/21/2024 9:03 AM EDT Phi Javier MD LAB BLOOD ORDERABLES Final Re sult Performing Organization Address [facility] Co de Phone Number [facility] [address] [place] [address], [place] [phone] from Last 3 Months Insurance [facility] PUBLIC PLANS Advance Directives * Full Code [...] currently active code status orders. Care Teams Truckload Checker Relationship Specialty Start Date End Date Kim Lemus MD [address] [place] [address] PCP - General Internal Medicine 05/11/19
[2025-02-12] MEDS: Lactulose 20 GM/30 ML SOLUTION 30 GM PO ×2 (14:55→21:47)
--- NOTE | 2025-02-12 15:16 | PM.IMHP ---
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 report he did not get his day Methadone and feels off. He did not move his bowels in couple of days. He does not take lactulose as schedule and continue to drink 2 pints of alcohol. He moved in with his mother recently. report generalized abd pain that is chronic. No chest pain, palpitations, SOB, nausea, vomiting, diarrhea or urinary symptoms. In ED found to have high Ammonia level of 130s. Leukopenia and thrombocytopenia with chronic trasnaminitis. started on Lactulose, will be admitted for further work up and management. Review of Systems Review of Systems: No fever, chills but has weakness No chest pain, palpitation No shortness of breath or coughing chronic abdominal pain, no nausea or vomiting No urinary symptoms No any rash or wounds [facility] Medical History Increased ammonia level Cirrhosis Substance abuse Opiate use Social History Household Members: Family Housing: House Do you presently have visiting nurse or other home services: No Alcohol intake: current Alcohol intake frequency: former alcohol drinker Alcohol type: hard liquor Comment: refuses alarms Patient Tobacco Use Status: Never used Tobacco e-Cigarette/Vaping Use: Currently Using service: No Meds Allergies Allergy/AdvReac Type Severity Reaction Status Date / Time fish derived [fish] Allergy Anaphylaxis Verified 02/12/25 12:21 shellfish derived Allergy Anaphylaxis Verified 02/12/25 12:21 Home Medications ?Medication ?Instructions ?Recorded ?Confirmed ?Last Taken ?Type methadone 10 mg/mL oral concentrate 85 mg PO DAILY 03/03/24 02/12/25 02/11/25 History aripiprazole 15 mg tablet 15 mg DAILY 12/13/24 01/24/25 12/12/24 History clonidine HCl 0.1 mg tablet 0.1 mg PO BID 12/13/24 01/24/25 12/12/24 History gabapentin 800 mg tablet 800 mg PO TID 12/13/24 01/24/25 12/12/24 History multivitamin-iron 9 mg-folic acid 1 tab PO DAILY 12/13/24 01/24/25 12/12/24 History 400 mcg-calcium and minerals tablet (Therapeutic-M) rifaximin 550 mg tablet (Xifaxan) 550 mg PO BID 12/13/24 01/24/25 12/12/24 History sertraline 100 mg tablet 100 mg PO DAILY 12/13/24 01/24/25 12/12/24 History thiamine HCl (vitamin B1) 100 mg 200 mg PO DAILY 12/13/24 01/24/25 12/12/24 History tablet folic acid 1 mg tablet 1 mg PO DAILY 02/12/25 Unknown History magnesium oxide 400 mg (241.3 mg 400 mg PO DAILY 02/12/25 Unknown History magnesium) tablet mirtazapine 7.5 mg tablet 7.5 mg PO DAILY 02/12/25 Unknown History tamsulosin 0.4 mg capsule 0.4 mg PO DAILY 02/12/25 Unknown History Physical Exam Vital Signs and Narrative: Vital Signs: Last Vital Signs Temp 98.6 F 02/12/25 12:18 Pulse 85 02/12/25 12:18 Resp 20 02/12/25 12:18 BP 148/84 H 02/12/25 12:18 Pulse Ox 98 02/12/25 12:18 O2 Del Method Room Air 02/12/25 12:18 BMI result Body Mass Index 35.5 Const: Other: Constitutional : Awake, interactive, slow in responses, not in distress Neck : Normal inspection, Supple Cardiovascular : RRR, no JVP, +1 bilateral lower extremity edema Respiratory : good bilateral air entry, no crackles, wheezes or rhonchi Gastrointestinal: soft, lax, slow bowel sounds, generalized mild discomfort but no tenderness or surgical sign, distended Skin : Warm, Dry Neurological : Alert & oriented to self and place but not to time , No focal deficit , CN 2-12 within normal Results Labs 02/12/25 13:39 02/12/25 13:39 Labs: Laboratory Results - last 24 hr 02/12/25 13:39 MCV 89.0 MCH 30.4 MCHC 34.2 RDW 14.2 Plt Count 59 L MPV 11.2 Immature Gran % (Auto) 0.3 Neut % (Auto) 54.4 Lymph % (Auto) 35.8 [place] % (Auto) 8.3 Eos % (Auto) 0.9 Baso % (Auto) 0.3 Lymph # (Auto) 1.2 [place] # (Auto) 0.3 Eos # (Auto) 0.0 Baso # (Auto) 0.0 Abs Immat Gran (auto) 0.01 Absolute Neuts (auto) 1.8 L Absolute Nucleated RBC 0.000 Nucleated RBC % (auto) 0.0 Anion Gap 10 L Estim Creat Clear Calc 184.4 Estimated GFR > 60 Random Glucose 121 H Calcium 8.2 L D Total Bilirubin 2.3 H Direct Bilirubin 1.4 H AST 164 H ALT 114 H Ammonia 135 H Total Protein 7.0 Albumin 3.1 L Assessment and Plan (1) Acute hepatic encephalopathy: Status: Acute (2) Increased ammonia level: Status: Acute (3) Methadone maintenance therapy patient: Status: Acute (4) Cirrhosis: Qualifiers: Ascites presence: without ascites Hepatic cirrhosis type: unspecified hepatic cirrhosis Qualified Code(s): K74.60 - Unspecified cirrhosis of liver Status: Acute (5) Edema: Status: Acute (6) Alcohol abuse: Status: Acute Plan A 34 year old gentleman with PMH of substance use disorder, continued to drink 2 pt of alcohol daily, last drink 2 days ago, 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 Hepatic encephalopathy Ammonia of 135 Rifaximin bid Start Lactulose with goal of 2 BM daily Low sodium diet recurrent reorientation Decompensated Liver cirrhosis with fluid overload IV Lasix start Spironolactone and PO lasix tomorrow fluid restriction I\O Alcohol use disorder with risk of withdrawal Last alcohol intake 2 days ago thiamine, folic acid Addiction consult Substance use disorder Continue methadone chronic thrombocytopenia, chronic transaminitis, chronic Hep C infection outpatient GI follow up Mood disorder resume home medications. DVT prophylaxis compression boots due to low platelet. Full code The patient will require 2 night inpatient hospitalization for hepatic encephalopathy and alcohol use disorder with risk of withdrawal on ciwa protocol, and decompensated liver failure on IV Lasix. Quality Stroke Does the patient have a stroke diagnosis?: No VTE Prior VTE?: No VTE Risk Level:: Medical - low VTE Device Contraindication: Treatment Not Indicated VTE Drug Contraindication: Treatment Not Indicated
[2025-02-12 15:47] VITALS: BP 140/77; PULSE 78; RESP 14; TEMP 37; O2SAT 96
[2025-02-12] MEDS: LORazepam 0.5 MG TABLET 0.25 MG PO (17:14)
[2025-02-12] MEDS: 0.9 % Sodium Chloride Flush 3 ML SYRINGE IVFLUSH (17:16)
[2025-02-12 17:28] LABS: Alkaline Phosphatase 192 U/L (39-117)
[2025-02-12 18:00] LABS: Magnesium 1.6 mg/dL (1.6-2.6)
[2025-02-12 18:26] VITALS: BP 128/85; PULSE 75; RESP 14; TEMP 36.6; O2SAT 96
[2025-02-12] MEDS: Furosemide 40 MG/4 ML VIAL IVPUSH (18:31)
--- NOTE | 2025-02-12 19:08 | PHA.MEDREC ---
Addendum entered by Melonie Do RPh 02/12/25 19:30: [facility] REC REVIEWED BY [place] Original Note: Pharmacy Consult ? Medication Reconciliation Pharmacy has completed the medication reconciliation. Spoke with patient and he was able to confirm his medications. Patient stated he was not sure if he was taking the Furosemide, Linzess or Spironolactone; he stated he picked those medications up but doesn't remember starting those. He also was not sure about taking the Tamsulosin 0.4mg tab anymore but remembered getting something for an enlarge prostate recently but didn't remember the name.
[2025-02-12] MEDS: PHENobarbitaL sodium 130 MG/ML IM ONCE 255 MG IM (20:29)
--- NOTE | 2025-02-12 21:09 | PC.NURSE ---
this rn assumed care of pt, pt resting in stretcher, noted to be tearful, pt reports increased anxiety, provider aware.
[2025-02-12] MEDS: LORazepam 0.5 MG TABLET PO (21:47)
[2025-02-12] MEDS: rifAXIMin 550 MG TABLET PO (21:47)
--- NOTE | 2025-02-12 21:56 | PC.NURSE ---
pt medicated per mar, tolerated whole well with water.
[2025-02-12 22:45] VITALS: BP 109/64; PULSE 71; RESP 17; TEMP 36.7; O2SAT 98
[2025-02-12] MEDS: PHENobarbitaL sodium 130 MG/ML VIAL IM Q3Hx2 192 MG IM (22:46)
[2025-02-12] MEDS: Morphine Sulfate Immed Release 15 MG TABLET PO (22:46)
--- NOTE | 2025-02-12 22:54 | PC.NURSE ---
CIWA=5, vss, pt medicated per mar for pain and for etoh withdrawl at this time.
[2025-02-13] VITALS (9 sets, daily range): BP systolic 99–156; BP diastolic 58–87; PULSE 78–88; RESP 15–18; TEMP 36.4–36.9; O2SAT 94–99
[2025-02-13] MEDS: PHENobarbitaL sodium 130 MG/ML VIAL IM Q3Hx2 192 MG IM (02:55)
[2025-02-13] MEDS: traMADoL HCL 50 MG TABLET PO (06:02)
[2025-02-13 06:40] LABS: Alanine Aminotransferase 118 U/L (0-40); Albumin Level 3.2 g/dL (3.5-5.0); Alkaline Phosphatase 203 U/L (39-117); Anion Gap 11 (12-20); Aspartate Amino Transferase 175 U/L (5-37); Bilirubin Total 4.2 mg/dL (0.0-1.0); Blood Urea Nitrogen 12 mg/dL (9-16); Calcium 8.5 mg/dL (8.4-10.2); Carbon Dioxide 25 mmol/L (22-29); Chloride 102 mmol/L (96-108); Creatinine Clr Calc Pharmacy 184.4; Estimated Glomerular Filt Rate > 60; Glucose Random 102 mg/dL (60-115); Potassium 3.4 mmol/L (3.3-5.1); Sodium 135 mmol/L (135-145); Total Protein 7.3 g/dL (6.5-8.0)
[2025-02-13 08:42] LABS: Ammonia 90 umol/L (13-55)
[2025-02-13] MEDS: PHENobarbitaL 15 MG TABLET 45 MG PO ×2 (10:17→20:05)
[2025-02-13] MEDS: rifAXIMin 550 MG TABLET PO ×2 (10:17→20:04)
[2025-02-13] MEDS: Spironolactone 25 MG TABLET 50 MG PO (10:18)
[2025-02-13] MEDS: Lactulose 20 GM/30 ML SOLUTION 30 GM PO (10:22)
[2025-02-13] MEDS: Folic Acid 1 MG TABLET PO (10:22)
[2025-02-13] MEDS: Tamsulosin HCL 0.4 MG CAPSULE PO (10:22)
[2025-02-13] MEDS: Thiamine HCL 100 MG TABLET PO (10:22)
[2025-02-13] MEDS: Sertraline HCL 100 MG TABLET PO (10:22)
[2025-02-13] MEDS: 0.9 % Sodium Chloride Flush 3 ML SYRINGE IVFLUSH ×3 (10:25→20:06)
--- NOTE | 2025-02-13 10:50 | MHC.CM.PN ---
PT LIVES WITH HIS PARENTS GETS HIS METHJADONE FROM [facility] PT HAS OWN RIDE HOME
--- NOTE | 2025-02-13 11:29 | HO.PM.IMPN ---
Subjective Subjective Date of Service: 02/13/25 Interval History: alert and interactive but confused and fluid overloaded scoring more on CIWA overnight no BM yet but ammonia already trending down Review of Systems No fever, chills but has weakness No chest pain, palpitation No shortness of breath or coughing chronic abdominal pain, no nausea or vomiting No urinary symptoms No any rash or wounds Physical Exam Vital Signs: Vital Signs: Last Vital Signs Temp 97.6 F 02/13/25 08:58 Pulse 87 02/13/25 08:58 Resp 18 02/13/25 08:58 BP 156/65 H 02/13/25 10:18 Pulse Ox 97 02/13/25 08:58 O2 Del Method Room Air 02/13/25 08:58 BMI result Body Mass Index 35.5 Const: Other: Constitutional : Awake, interactive, slow in responses, not in distress Neck : Normal inspection, Supple Cardiovascular : RRR, no JVP, +1 bilateral lower extremity edema Respiratory : good bilateral air entry, no crackles, wheezes or rhonchi Gastrointestinal: soft, lax, slow bowel sounds, generalized mild discomfort but no tenderness or surgical sign, distended Skin : Warm, Dry Neurological : Alert & oriented to self and place but not to time , No focal deficit , CN 2-12 within normal Objective Data Active Medications Acetaminophen (Acetaminophen 325 Mg Tablet) 650 mg PO Q6H PRN PRN Reason: Pain, Mild 1-3,fever,headache Artificial Tears (Artificial Tears 15 Ml Drops) 2 drop EYE-BOTH Q4H PRN PRN Reason: Dry Eyes Calcium Carbonate (Calcium Carbonate 750 Mg Tab.Chew) 750 mg PO Q4H PRN PRN Reason: Heartburn Clonidine HCl (Clonidine Hcl 0.1 Mg Tablet) 0.1 mg PO BID [facility]; Protocol Folic Acid (Folic Acid 1 Mg Tablet) 1 mg PO DAILY [facility] Last Admin: 02/13/25 10:22 Dose: 1 mg Documented By: MASOUD Furosemide (Furosemide 40 Mg/4 Ml Vial) 40 mg IVPUSH DAILY [facility]; Protocol Gabapentin (Gabapentin 100 Mg Capsule) 200 mg PO TID [facility] Lactulose (Lactulose 20 Gm/30 Ml Solution) 30 gm PO TID [facility] Last Admin: 02/13/25 10:22 Dose: 30 gm Documented By: MASOUD Lorazepam (Lorazepam 0.5 Mg Tablet) 0.25 mg PO BID PRN PRN Reason: anxiety/restlessness Last Admin: 02/12/25 17:14 Dose: 0.25 mg Documented By: VERONIQUE Magnesium Hydroxide (Milk Of Magnesia 30 Ml Oral.Susp) 30 ml PO DAILY PRN PRN Reason: Constipation Magnesium Oxide (Magnesium Oxide 400 Mg Tablet) 400 mg PO DAILY [facility] Melatonin (Melatonin 3 Mg Tablet) 6 mg PO BEDTIME PRN PRN Reason: Insomnia Methadone HCl (Methadone Hcl 20 Mg/2 Ml Oral.Conc) 85 mg PO DAILY [facility] Multivitamins/Vitamin C (Multivitamin Tablet) 1 tab PO DAILY [facility] Ondansetron HCl (Ondansetron Hcl 4 Mg/2 Ml Vial) 4 mg IVPUSH Q8H PRN PRN Reason: Nausea and Vomiting Pharmacy Consult (Consult Rx Etoh Phenob Im/Po) 1 each MISCELLANE ONCE PRN; Protocol PRN Reason: Consult order Phenobarbital (Phenobarbital 15 Mg Tablet) 45 mg PO BID [facility]; Protocol Stop: 02/14/25 21:01 Last Admin: 02/13/25 10:17 Dose: 45 mg Documented By: MASOUD Phenobarbital (Phenobarbital 30 Mg Tablet) 30 mg PO BID [facility]; Protocol Stop: 02/16/25 21:01 Phenobarbital (Phenobarbital 30 Mg Tablet) 30 mg PO DAILY [facility]; Protocol Stop: 02/18/25 09:01 Rifaximin (Rifaximin 550 Mg Tablet) 550 mg PO BID [facility] Last Admin: 02/13/25 10:17 Dose: 550 mg Documented By: MASOUD Sertraline HCl (Sertraline Hcl 100 Mg Tablet) 100 mg PO DAILY [facility] Last Admin: 02/13/25 10:22 Dose: 100 mg Documented By: MASOUD Sodium Chloride (0.9 % Sodium Chloride Flush 3 Ml Syringe) 3 ml IVFLUSH QSHIFT [facility] Last Admin: 02/13/25 10:25 Dose: 3 ml Documented By: MASOUD Spironolactone (Spironolactone 25 Mg Tablet) 50 mg PO DAILY [facility]; Protocol Last Admin: 02/13/25 10:18 Dose: 50 mg Documented By: MASOUD Tamsulosin HCl (Tamsulosin Hcl 0.4 Mg Capsule) 0.4 mg PO DAILY [facility] Last Admin: 02/13/25 10:22 Dose: 0.4 mg Documented By: MASOUD Thiamine HCl (Thiamine Hcl 100 Mg Tablet) 100 mg PO DAILY [facility] Last Admin: 02/13/25 10:22 Dose: 100 mg Documented By: MASOUD Labs 02/12/25 13:39 02/13/25 05:53 Labs: Laboratory Results - last 24 hr 02/12/25 02/13/25 02/13/25 13:39 05:53 08:32 MCV 89.0 MCH 30.4 MCHC 34.2 RDW 14.2 Plt Count 59 L MPV 11.2 Immature Gran % (Auto) 0.3 Neut % (Auto) 54.4 Lymph % (Auto) 35.8 [place] % (Auto) 8.3 Eos % (Auto) 0.9 Baso % (Auto) 0.3 Lymph # (Auto) 1.2 [place] # (Auto) 0.3 Eos # (Auto) 0.0 Baso # (Auto) 0.0 Abs Immat Gran (auto) 0.01 Absolute Neuts (auto) 1.8 L Absolute Nucleated RBC 0.000 Nucleated RBC % (auto) 0.0 Anion Gap 10 L 11 L Estim Creat Clear Calc 184.4 184.4 Estimated GFR > 60 > 60 Random Glucose 121 H 102 Calcium 8.2 L D 8.5 Magnesium 1.6 Total Bilirubin 2.3 H 4.2 H Direct Bilirubin 1.4 H AST 164 H 175 H ALT 114 H 118 H Alkaline Phosphatase 192 H 203 H Ammonia 135 H 90 H Total Protein 7.0 7.3 Albumin 3.1 L 3.2 L Assessment and Plan (1) Acute hepatic encephalopathy: Status: Acute (2) Increased ammonia level: Status: Acute (3) Methadone maintenance therapy patient: Status: Acute (4) Cirrhosis: Status: Acute (5) Alcohol abuse: Status: Acute (6) Alcohol withdrawal: Status: Acute Plan A 34 year old gentleman with PMH of substance use disorder, continued to drink 2 pt of alcohol daily, last drink 2 days ago, 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 Hepatic encephalopathy Ammonia of 135 on admission trended down to 80s Rifaximin bid Increase Lactulose to QID with goal of 2 BM daily Low sodium diet recurrent reorientation Decompensated Liver cirrhosis with fluid overload IV Lasix 40 mg daily start Spironolactone fluid restriction I\O Alcohol use disorder with acute withdrawal Last alcohol intake 2 days ago scoring higher on CIWA overnight Started Phenobarbital protocol overnight thiamine, folic acid Addiction consult Substance use disorder Continue methadone chronic thrombocytopenia, chronic transaminitis, chronic Hep C infection outpatient GI follow up Mood disorder resume home medications. DVT prophylaxis compression boots due to low platelet. Full code The patient will require overnight inpatient hospitalization for hepatic encephalopathy and alcohol use disorder with withdrawal on Phenobarb protocol, and decompensated liver failure on IV Lasix. Quality Stroke Does the patient have a stroke diagnosis?: No VTE Prior VTE?: No VTE Risk Level:: Medical - low VTE Device Contraindication: Treatment Not Indicated VTE Drug Contraindication: Treatment Not Indicated
[2025-02-13] MEDS: LORazepam 0.5 MG TABLET 0.25 MG PO (11:30)
[2025-02-13] MEDS: cloNIDine HCL 0.1 MG TABLET PO ×2 (11:31→20:05)
[2025-02-13] MEDS: Furosemide 40 MG/4 ML VIAL IVPUSH (11:32)
[2025-02-13] MEDS: methADONE HCl 20 MG/2 ML ORAL.CONC 85 MG PO (11:38)
--- NOTE | 2025-02-13 13:54 | HO.ADDICTCON ---
History of Present Illness Date of Service: 02/13/2025 Chief Complaint: Hepatic encephalopathy Reason for Consult: AUD HPI Narrative: Patient is a 34 year old male with history of decompensated liver cirrhosis secondary to alcohol use Medically admitted with hepatic encephalopathy. Patient seen in room 343. He was awake, but speaking very slowly. This racebook writer offered to return at a later time, however he asked that we continue interview and he did his best to stay alert during interview. He reports drinking approx 2 pints of [place] daily. Denies any other substance use. Has been in recovery from opiate use for several years. Methadone dose 85mg. Inquired with patient if he felt like methadone dose was too high (based on sedated presentation), he denied this. He states that he has has numerous admissions to treatment at various levels of care including ATS, Section 35, CSS, TSS, etc He stated, I don't want to from this, but I don't know how to stop He has been seen by [facility] during admission December 2024. At that time he was undecided about treatment. Labs reviewed--Bili 4.2 Ammonia 90 (down from 135) AUDIT-C Brief Intervention This racebook writer met with patient to discuss current alcohol use and concerns related to increased risk of alcohol related problems. Discussed how alcohol use has impacted health, including negative impact on mental health and overall physical wellbeing. Discussed risk reduction strategies including drinking below the recommended limit. Review of Systems Constitutional: Reports as per HPI and Reports malaise Gastrointestinal: Denies nausea and Denies vomiting Diagnostics Vital Signs (24Hr): Vital Signs - 24 hr 02/12/25 15:47 02/12/25 18:26 02/12/25 22:45 Temperature 98.6 F 97.8 F 98.1 F Pulse Rate 78 75 71 Respiratory Rate 14 14 17 Blood Pressure 140/77 H 128/85 109/64 Pulse Oximetry 96 96 98 Oxygen Delivery Method Room Air Room Air Room Air 02/13/25 02:53 02/13/25 06:01 02/13/25 08:58 Temperature 98.4 F 97.8 F 97.6 F Pulse Rate 88 81 87 Respiratory Rate 18 15 18 Blood Pressure 102/58 L 124/87 125/79 Pulse Oximetry 98 99 97 Oxygen Delivery Method Room Air Room Air Room Air 02/13/25 10:18 02/13/25 11:31 02/13/25 11:32 Temperature Pulse Rate Respiratory Rate Blood Pressure 156/65 H 156/65 H 156/65 H Pulse Oximetry Oxygen Delivery Method BMI result Body Mass Index 35.5 Labs 02/12/25 13:39 02/13/25 05:53 Labs: Laboratory Results - last 48 hr 02/12/25 02/13/25 02/13/25 13:39 05:53 08:32 WBC 3.2 L RBC 4.54 L Hgb 13.8 L Hct 40.4 L MCV 89.0 MCH 30.4 MCHC 34.2 RDW 14.2 Plt Count 59 L MPV 11.2 Immature Gran % (Auto) 0.3 Neut % (Auto) 54.4 Lymph % (Auto) 35.8 [place] % (Auto) 8.3 Eos % (Auto) 0.9 Baso % (Auto) 0.3 Lymph # (Auto) 1.2 [place] # (Auto) 0.3 Eos # (Auto) 0.0 Baso # (Auto) 0.0 Abs Immat Gran (auto) 0.01 Absolute Neuts (auto) 1.8 L Absolute Nucleated RBC 0.000 Nucleated RBC % (auto) 0.0 Sodium 137 135 Potassium 4.1 3.4 Chloride 106 102 Carbon Dioxide 25 25 Anion Gap 10 L 11 L BUN 8 L 12 Creatinine 0.63 0.63 Estim Creat Clear Calc 184.4 184.4 Estimated GFR > 60 > 60 Random Glucose 121 H 102 Calcium 8.2 L D 8.5 Magnesium 1.6 Total Bilirubin 2.3 H 4.2 H Direct Bilirubin 1.4 H AST 164 H 175 H ALT 114 H 118 H Alkaline Phosphatase 192 H 203 H Ammonia 135 H 90 H Total Protein 7.0 7.3 Albumin 3.1 L 3.2 L Mental Status Exam Mental Status Exam Level of Consciousness: Drowsy Patient Behavior: Appropriate Affect Description: Blunted Speech Pattern: Delayed (very slow) Hallucinations: None Thought Content: positive for [place] Judgement: Fair Medications Medications Current Medications Acetaminophen (Acetaminophen 325 Mg Tablet) 650 mg PO Q6H PRN PRN Reason: Pain, Mild 1-3,fever,headache Artificial Tears (Artificial Tears 15 Ml Drops) 2 drop EYE-BOTH Q4H PRN PRN Reason: Dry Eyes Calcium Carbonate (Calcium Carbonate 750 Mg Tab.Chew) 750 mg PO Q4H PRN PRN Reason: Heartburn Clonidine HCl (Clonidine Hcl 0.1 Mg Tablet) 0.1 mg PO BID [facility]; Protocol Last Admin: 02/13/25 11:31 Dose: 0.1 mg Folic Acid (Folic Acid 1 Mg Tablet) 1 mg PO DAILY [facility] Last Admin: 02/13/25 10:22 Dose: 1 mg Furosemide (Furosemide 40 Mg/4 Ml Vial) 40 mg IVPUSH DAILY [facility]; Protocol Last Admin: 02/13/25 11:32 Dose: 40 mg Gabapentin (Gabapentin 100 Mg Capsule) 200 mg PO TID [facility] Lactulose (Lactulose 20 Gm/30 Ml Solution) 30 gm PO QID [facility] Lorazepam (Lorazepam 0.5 Mg Tablet) 0.25 mg PO BID PRN PRN Reason: anxiety/restlessness Last Admin: 02/13/25 11:30 Dose: 0.25 mg Magnesium Hydroxide (Milk Of Magnesia 30 Ml Oral.Susp) 30 ml PO DAILY PRN PRN Reason: Constipation Magnesium Oxide (Magnesium Oxide 400 Mg Tablet) 400 mg PO DAILY [facility] Melatonin (Melatonin 3 Mg Tablet) 6 mg PO BEDTIME PRN PRN Reason: Insomnia Methadone HCl (Methadone Hcl 20 Mg/2 Ml Oral.Conc) 85 mg PO DAILY [facility] Last Admin: 02/13/25 11:38 Dose: 85 mg Morphine Sulfate (Morphine Sulfate Immed Release 15 Mg Tablet) 15 mg PO Q8H PRN PRN Reason: Pain, Severe (Pain Scale 7-10) Multivitamins/Vitamin C (Multivitamin Tablet) 1 tab PO DAILY [facility] Ondansetron HCl (Ondansetron Hcl 4 Mg/2 Ml Vial) 4 mg IVPUSH Q8H PRN PRN Reason: Nausea and Vomiting Pharmacy Consult (Consult Rx Etoh Phenob Im/Po) 1 each MISCELLANE ONCE PRN; Protocol PRN Reason: Consult order Phenobarbital (Phenobarbital 15 Mg Tablet) 45 mg PO BID [facility]; Protocol Stop: 02/14/25 21:01 Last Admin: 02/13/25 10:17 Dose: 45 mg Phenobarbital (Phenobarbital 30 Mg Tablet) 30 mg PO BID [facility]; Protocol Stop: 02/16/25 21:01 Phenobarbital (Phenobarbital 30 Mg Tablet) 30 mg PO DAILY [facility]; Protocol Stop: 02/18/25 09:01 Rifaximin (Rifaximin 550 Mg Tablet) 550 mg PO BID [facility] Last Admin: 02/13/25 10:17 Dose: 550 mg Sertraline HCl (Sertraline Hcl 100 Mg Tablet) 100 mg PO DAILY [facility] Last Admin: 02/13/25 10:22 Dose: 100 mg Sodium Chloride (0.9 % Sodium Chloride Flush 3 Ml Syringe) 3 ml IVFLUSH QSHIFT [facility] Last Admin: 02/13/25 10:25 Dose: 3 ml Spironolactone (Spironolactone 25 Mg Tablet) 50 mg PO DAILY [facility]; Protocol Last Admin: 02/13/25 10:18 Dose: 50 mg Tamsulosin HCl (Tamsulosin Hcl 0.4 Mg Capsule) 0.4 mg PO DAILY [facility] Last Admin: 02/13/25 10:22 Dose: 0.4 mg Thiamine HCl (Thiamine Hcl 100 Mg Tablet) 100 mg PO DAILY [facility] Last Admin: 02/13/25 10:22 Dose: 100 mg Allergies Allergies Allergy/AdvReac Type Severity Reaction Status Date / Time fish derived [fish] Allergy Anaphylaxis Verified 02/12/25 12:21 shellfish derived Allergy Anaphylaxis Verified 02/12/25 12:21 Assessment & Plan Assessment & Plan (1) Alcohol use disorder, severe, dependence: Status: Acute Code(s): F10.20 - Alcohol dependence, uncomplicated Assessment and Plan: patient verbalizing interest in IOP following discharge, will follow up tmrw to reassess withdrawal sx managed with pheno taper. continue thiamine expressed concern r/t methadone and alcohol --and increased risk of sedation and respiratory depression Total time managing care of this patient today ____ minutes. PMFSH Past Medical History Medical History Increased ammonia level Cirrhosis Substance abuse Opiate use Social History Social History Household Members: Other Household Members Other:: brother Housing: House Do you presently have visiting nurse or other home services: No Alcohol intake: current Alcohol intake frequency: former alcohol drinker Alcohol type: hard liquor Comment: refuses alarms Patient Tobacco Use Status: Current everyday Tobacco user Tobacco use type: Cigarette Cigarette Packs Per Day: 1 Cigarettes Per Day: 20.0 e-Cigarette/Vaping Use: Currently Using service: No
[2025-02-13] MEDS: Morphine Sulfate Immed Release 15 MG TABLET PO ×2 (14:30→22:33)
[2025-02-13] MEDS: Gabapentin 100 MG CAPSULE 200 MG PO ×2 (14:30→20:05)
--- NOTE | 2025-02-13 17:34 | PC.NURSE ---
Patient refused Lactulose twice stating he had 4 BMs today.
[2025-02-14] VITALS (7 sets, daily range): BP systolic 95–123; BP diastolic 55–69; PULSE 81–90; RESP 16–18; TEMP 36.1–36.7; O2SAT 93–97
[2025-02-14] MEDS: Nicotine Polacrilex 2 MG GUM BUCCAL ×4 (00:21→17:17)
[2025-02-14] MEDS: LORazepam 0.5 MG TABLET 0.25 MG PO ×2 (03:04→17:18)
[2025-02-14 06:36] LABS: MANUAL DIFF FLAG NO
[2025-02-14] MEDS: Morphine Sulfate Immed Release 15 MG TABLET PO ×3 (06:37→21:38)
[2025-02-14 07:02] LABS: Alanine Aminotransferase 108 U/L (0-40); Albumin Level 2.9 g/dL (3.5-5.0); Alkaline Phosphatase 192 U/L (39-117); Anion Gap 10 (12-20); Aspartate Amino Transferase 167 U/L (5-37); Bilirubin Direct 2.4 mg/dL (0.0-0.5); Bilirubin Total 3.8 mg/dL (0.0-1.0); Blood Urea Nitrogen 11 mg/dL (9-16); Calcium 8.3 mg/dL (8.4-10.2); Carbon Dioxide 27 mmol/L (22-29); Chloride 99 mmol/L (96-108); Creatinine Clr Calc Pharmacy 187.4; Estimated Glomerular Filt Rate > 60; Glucose Random 114 mg/dL (60-115); Potassium 3.7 mmol/L (3.3-5.1); Sodium 132 mmol/L (135-145); Total Protein 6.8 g/dL (6.5-8.0)
[2025-02-14 07:07] LABS: Basophils Percent Auto 0.3 % (0-2); Eosinophils Percent Auto 1.2 % (0-4); Hemoglobin 13.6 g/dl (14.0-18.0); Imm Gran Abs Auto 0.01 X10*3/uL (0.00-0.03); Imm Gran Pct Auto 0.3 % (0.0-0.4); Lymphocytes Absolute Auto 1.3 X10*3/uL (1.2-4.9); Lymphocytes Percent Auto 40.1 % (20-40); Mean Corpuscular HGB Conc 34.9 g/dl (31.0-36.0); Mean Corpuscular Hemoglobin 30.4 pg (27.0-33.0); Mean Corpuscular Volume 87.1 fL (80.0-98.0); Monocytes Absolute Auto 0.3 X10*3/uL (0.1-1.2); Monocytes Percent Auto 9.6 % (2-11); Neutrophils Absolute Auto 1.6 x10*3/uL (2.0-8.3); Neutrophils Percent Auto 48.5 % (45-73); Red Blood Count 4.48 X10*6/uL (4.60-5.80); Red Cell Distribution Width 13.9 % (11.0-16.0); White Blood Count 3.3 X10*3/uL (4.8-10.8)
[2025-02-14 07:08] LABS: Platelet Count 52 X10*3/uL (160-400)
[2025-02-14] MEDS: methADONE HCl 20 MG/2 ML ORAL.CONC 85 MG PO (08:53)
[2025-02-14] MEDS: Lactulose 20 GM/30 ML SOLUTION 30 GM PO ×2 (08:53→12:40)
[2025-02-14] MEDS: Gabapentin 100 MG CAPSULE 200 MG PO ×3 (08:54→21:19)
[2025-02-14] MEDS: Multivitamin TABLET 1 TAB PO (08:54)
[2025-02-14] MEDS: Sertraline HCL 100 MG TABLET PO (08:54)
[2025-02-14] MEDS: Thiamine HCL 100 MG TABLET PO (08:54)
[2025-02-14] MEDS: Magnesium Oxide 400 MG TABLET PO (08:54)
[2025-02-14] MEDS: Tamsulosin HCL 0.4 MG CAPSULE PO (08:54)
[2025-02-14] MEDS: Spironolactone 25 MG TABLET 50 MG PO (08:54)
[2025-02-14] MEDS: cloNIDine HCL 0.1 MG TABLET PO ×2 (08:54→21:19)
[2025-02-14] MEDS: Folic Acid 1 MG TABLET PO (08:54)
[2025-02-14] MEDS: PHENobarbitaL 15 MG TABLET 45 MG PO ×2 (08:54→21:20)
[2025-02-14] MEDS: 0.9 % Sodium Chloride Flush 3 ML SYRINGE IVFLUSH ×3 (08:55→21:21)
[2025-02-14] MEDS: Furosemide 40 MG/4 ML VIAL IVPUSH (08:55)
[2025-02-14] MEDS: rifAXIMin 550 MG TABLET PO ×2 (09:09→21:19)
--- NOTE | 2025-02-14 12:20 | PC.NURSE ---
Pt refusing alarms. Ambulates steady. Took AM lactulose dose. Reinforced fluid restriction as patient keeps asking for drinks.
--- NOTE | 2025-02-14 13:46 | HO.PM.IMPN ---
Subjective Subjective Date of Service: 02/14/25 Interval History: no acute issues overnight. JORGE remains flat Review of Systems denies chest pain Denies shortness of breath Denies nausea vomiting diarrhea Denies fever chills Physical Exam Vital Signs: Vital Signs: Last Vital Signs Temp 98.1 F 02/14/25 07:37 Pulse 83 02/14/25 07:37 Resp 18 02/14/25 07:37 BP 109/57 L 02/14/25 07:37 Pulse Ox 93 02/14/25 07:37 O2 Del Method Room Air 02/14/25 07:37 BMI result Body Mass Index 35.5 Const: Other: awake alert oriented x3 no acute distress Resp: Other: clear to auscultation bilaterally no rales rhonchi or wheezes Cardio: Other: no S4; positive S1-S2; no S3 murmurs rubs or gallops GI: Other: soft nontender nondistended normoactive bowel sounds Neuro: Other: cranial nerves 2-12 grossly intact as tested. Motor is 5/5 all extremities. Sensation is intact. Extrem: Other: No edema bilaterally Objective Data Active Medications Acetaminophen (Acetaminophen 325 Mg Tablet) 650 mg PO Q6H PRN PRN Reason: Pain, Mild 1-3,fever,headache Artificial Tears (Artificial Tears 15 Ml Drops) 2 drop EYE-BOTH Q4H PRN PRN Reason: Dry Eyes Calcium Carbonate (Calcium Carbonate 750 Mg Tab.Chew) 750 mg PO Q4H PRN PRN Reason: Heartburn Clonidine HCl (Clonidine Hcl 0.1 Mg Tablet) 0.1 mg PO BID [facility]; Protocol Last Admin: 02/14/25 08:54 Dose: 0.1 mg Documented By: LINDA Folic Acid (Folic Acid 1 Mg Tablet) 1 mg PO DAILY [facility] Last Admin: 02/14/25 08:54 Dose: 1 mg Documented By: LINDA Furosemide (Furosemide 40 Mg/4 Ml Vial) 40 mg IVPUSH DAILY [facility]; Protocol Last Admin: 02/14/25 08:55 Dose: 40 mg Documented By: LINDA Gabapentin (Gabapentin 100 Mg Capsule) 200 mg PO TID [facility] Last Admin: 02/14/25 08:54 Dose: 200 mg Documented By: LINDA Lactulose (Lactulose 20 Gm/30 Ml Solution) 30 gm PO QID [facility] Last Admin: 02/14/25 12:40 Dose: 30 gm Documented By: LINDA Lorazepam (Lorazepam 0.5 Mg Tablet) 0.25 mg PO BID PRN PRN Reason: anxiety/restlessness Last Admin: 02/14/25 03:04 Dose: 0.25 mg Documented By: TORSTEN Magnesium Hydroxide (Milk Of Magnesia 30 Ml Oral.Susp) 30 ml PO DAILY PRN PRN Reason: Constipation Magnesium Oxide (Magnesium Oxide 400 Mg Tablet) 400 mg PO DAILY [facility] Last Admin: 02/14/25 08:54 Dose: 400 mg Documented By: LINDA Melatonin (Melatonin 3 Mg Tablet) 6 mg PO BEDTIME PRN PRN Reason: Insomnia Methadone HCl (Methadone Hcl 20 Mg/2 Ml Oral.Conc) 85 mg PO DAILY [facility] Last Admin: 02/14/25 08:53 Dose: 85 mg Documented By: LINDA Co-signed By: KARAN Morphine Sulfate (Morphine Sulfate Immed Release 15 Mg Tablet) 15 mg PO Q8H PRN PRN Reason: Pain, Severe (Pain Scale 7-10) Last Admin: 02/14/25 06:37 Dose: 15 mg Documented By: TORSTEN Multivitamins/Vitamin C (Multivitamin Tablet) 1 tab PO DAILY [facility] Last Admin: 02/14/25 08:54 Dose: 1 tab Documented By: LINDA Nicotine Polacrilex (Nicotine Polacrilex 2 Mg Gum) 2 mg BUCCAL Q2H PRN PRN Reason: Nicotine Cravings Last Admin: 02/14/25 12:40 Dose: 2 mg Documented By: LINDA Ondansetron HCl (Ondansetron Hcl 4 Mg/2 Ml Vial) 4 mg IVPUSH Q8H PRN PRN Reason: Nausea and Vomiting Pharmacy Consult (Consult Rx Etoh Phenob Im/Po) 1 each MISCELLANE ONCE PRN; Protocol PRN Reason: Consult order Phenobarbital (Phenobarbital 15 Mg Tablet) 45 mg PO BID [facility]; Protocol Stop: 02/14/25 21:01 Last Admin: 02/14/25 08:54 Dose: 45 mg Documented By: LINDA Phenobarbital (Phenobarbital 30 Mg Tablet) 30 mg PO BID [facility]; Protocol Stop: 02/16/25 21:01 Phenobarbital (Phenobarbital 30 Mg Tablet) 30 mg PO DAILY [facility]; Protocol Stop: 02/18/25 09:01 Rifaximin (Rifaximin 550 Mg Tablet) 550 mg PO BID [facility] Last Admin: 02/14/25 09:09 Dose: 550 mg Documented By: LINDA Sertraline HCl (Sertraline Hcl 100 Mg Tablet) 100 mg PO DAILY [facility] Last Admin: 02/14/25 08:54 Dose: 100 mg Documented By: LINDA Sodium Chloride (0.9 % Sodium Chloride Flush 3 Ml Syringe) 3 ml IVFLUSH QSHIFT [facility] Last Admin: 02/14/25 08:55 Dose: 3 ml Documented By: LINDA Spironolactone (Spironolactone 25 Mg Tablet) 50 mg PO DAILY [facility]; Protocol Last Admin: 02/14/25 08:54 Dose: 50 mg Documented By: LINDA Tamsulosin HCl (Tamsulosin Hcl 0.4 Mg Capsule) 0.4 mg PO DAILY [facility] Last Admin: 02/14/25 08:54 Dose: 0.4 mg Documented By: LINDA Thiamine HCl (Thiamine Hcl 100 Mg Tablet) 100 mg PO DAILY [facility] Last Admin: 02/14/25 08:54 Dose: 100 mg Documented By: LINDA Labs 02/14/25 06:31 02/14/25 06:31 Labs: Laboratory Results - last 24 hr 02/14/25 06:31 MCV 87.1 MCH 30.4 MCHC 34.9 RDW 13.9 Plt Count 52 L MPV 11.0 Immature Gran % (Auto) 0.3 Neut % (Auto) 48.5 Lymph % (Auto) 40.1 H [place] % (Auto) 9.6 Eos % (Auto) 1.2 Baso % (Auto) 0.3 Lymph # (Auto) 1.3 [place] # (Auto) 0.3 Eos # (Auto) 0.0 Baso # (Auto) 0.0 Abs Immat Gran (auto) 0.01 Absolute Neuts (auto) 1.6 L Absolute Nucleated RBC 0.000 Nucleated RBC % (auto) 0.0 Anion Gap 10 L Estim Creat Clear Calc 187.4 Estimated GFR > 60 Random Glucose 114 Calcium 8.3 L Total Bilirubin 3.8 H Direct Bilirubin 2.4 H AST 167 H ALT 108 H Alkaline Phosphatase 192 H Total Protein 6.8 Albumin 2.9 L Assessment and Plan (1) Acute hepatic encephalopathy: Status: Acute (2) Alcohol withdrawal: Status: Acute Plan A 34 year old gentleman with PMH of substance use disorder, continued to drink 2 pt of alcohol daily, last drink 2 days ago, 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 1.Hepatic encephalopathy -Ammonia of 135 on admission trended down to 80s -Rifaximin bid - minimal response to Lactulose QID - follow clinically 2.Decompensated Liver cirrhosis with fluid overload -IV Lasix 40 mg daily -Spironolactone - follow renal/divalent 3.Alcohol use disorder with acute withdrawal - CIWA between 3 and 5 -Phenobarbital protocol tolerated well -thiamine, folic acid -Addiction consult appreciated 4.Substance use disorder -Continue methadone Boots Full code Requires ongoing hospitalization to continue phenobarb protocol for alcohol withdrawal. High risk for outpatient failure Quality Stroke Does the patient have a stroke diagnosis?: No VTE Prior VTE?: No VTE Risk Level:: Medical - low VTE Device Contraindication: Treatment Not Indicated VTE Drug Contraindication: Treatment Not Indicated
[2025-02-14] MEDS: LORazepam 0.5 MG TABLET PO (22:38)
[2025-02-15] MEDS: Morphine Sulfate Immed Release 15 MG TABLET PO ×2 (01:03→10:51)
[2025-02-15 02:03] VITALS: RESP 16
[2025-02-15 03:05] VITALS: BP 111/61; PULSE 78; RESP 16; TEMP 37.2; O2SAT 95
--- NOTE | 2025-02-15 04:24 | PC.NURSE ---
Assumed care of this patient at 19:00. Handoff report given to RN taking over care at 03:45. Please see shift assessments, tasks in worklist, and MAR for full details.
[2025-02-15 07:31] VITALS: BP 131/78; PULSE 83; RESP 18; TEMP 36.7; O2SAT 97
[2025-02-15] MEDS: Furosemide 40 MG/4 ML VIAL IVPUSH (08:27)
[2025-02-15] MEDS: Lactulose 20 GM/30 ML SOLUTION 30 GM PO (08:28)
[2025-02-15] MEDS: cloNIDine HCL 0.1 MG TABLET PO (08:28)
[2025-02-15] MEDS: methADONE HCl 20 MG/2 ML ORAL.CONC 85 MG PO (08:28)
[2025-02-15] MEDS: Spironolactone 25 MG TABLET 50 MG PO (08:29)
[2025-02-15] MEDS: Magnesium Oxide 400 MG TABLET PO (08:29)
[2025-02-15] MEDS: Gabapentin 100 MG CAPSULE 200 MG PO ×2 (08:29→14:43)
[2025-02-15] MEDS: Thiamine HCL 100 MG TABLET PO (08:29)
[2025-02-15] MEDS: rifAXIMin 550 MG TABLET PO (08:29)
[2025-02-15] MEDS: Sertraline HCL 100 MG TABLET PO (08:29)
[2025-02-15] MEDS: 0.9 % Sodium Chloride Flush 3 ML SYRINGE IVFLUSH (08:29)
[2025-02-15] MEDS: Multivitamin TABLET 1 TAB PO (08:29)
[2025-02-15] MEDS: Folic Acid 1 MG TABLET PO (08:29)
[2025-02-15] MEDS: PHENobarbitaL 30 MG TABLET PO (08:29)
[2025-02-15] MEDS: Tamsulosin HCL 0.4 MG CAPSULE PO (08:29)
[2025-02-15] MEDS: Nicotine Polacrilex 2 MG GUM BUCCAL (10:52)
[2025-02-15] MEDS: LORazepam 0.5 MG TABLET 0.25 MG PO (10:52)
--- NOTE | 2025-02-15 12:50 | P.PNADD_ITS ---
Subjective Subjective Date of Service: 02/15/25 Reason For Visit: Hepatic encephalopathy Interim History: Patient seen in follow up for AUD and hepatic encephalopathy. Overall appearance slightly improved from when last seen, however he is still appearing somewhat sedated/over medicated. Discussed this concern with patient, he states he does not feel sedated. Discussed concern of alcohol intake and methadone and increased risk for respiratory depression, patient somewhat dismissive of concern. Collateral obtained from provider at [facility], who reports patients alcohol use is a concern of theirs as well which is why he gets daily/observed dosing at [facility]. Discussed possibility of splitting dose for patient --provider agreeable. Side effects from medications: Yes (sedation ) Review of Systems Constitutional: Reports as per HPI and Reports no additional constitutional complaints Comments: patient denies any sx Mental Status Exam Mental Status Exam Patient Appearance: Well Grooomed Level of Consciousness: Drowsy Patient Behavior: Guarded Affect Description: Flat Speech Pattern: Delayed (slowed) Hallucinations: None Thought Content: positive for [place] Judgement: Fair Diagnostics Vital Signs (24Hr): Vital Signs - 24 hr 02/14/25 15:08 02/14/25 19:04 02/14/25 21:15 Temperature 98.1 F 98.1 F Pulse Rate 81 83 90 Respiratory Rate 18 18 Blood Pressure 123/66 107/61 123/69 Pulse Oximetry 96 97 Oxygen Delivery Method Room Air Room Air 02/14/25 21:38 02/14/25 22:37 02/15/25 02:03 Temperature Pulse Rate Respiratory Rate 18 18 16 Blood Pressure Pulse Oximetry Oxygen Delivery Method 02/15/25 03:05 02/15/25 07:31 Temperature 98.9 F 98.1 F Pulse Rate 78 83 Respiratory Rate 16 18 Blood Pressure 111/61 131/78 Pulse Oximetry 95 97 Oxygen Delivery Method Room Air Room Air BMI result Body Mass Index 35.5 Labs 02/14/25 06:31 02/14/25 06:31 Labs: Laboratory Results - last 48 hr 02/14/25 06:31 WBC 3.3 L RBC 4.48 L Hgb 13.6 L Hct 39.0 L MCV 87.1 MCH 30.4 MCHC 34.9 RDW 13.9 Plt Count 52 L MPV 11.0 Immature Gran % (Auto) 0.3 Neut % (Auto) 48.5 Lymph % (Auto) 40.1 H [place] % (Auto) 9.6 Eos % (Auto) 1.2 Baso % (Auto) 0.3 Lymph # (Auto) 1.3 [place] # (Auto) 0.3 Eos # (Auto) 0.0 Baso # (Auto) 0.0 Abs Immat Gran (auto) 0.01 Absolute Neuts (auto) 1.6 L Absolute Nucleated RBC 0.000 Nucleated RBC % (auto) 0.0 Sodium 132 L Potassium 3.7 Chloride 99 Carbon Dioxide 27 Anion Gap 10 L BUN 11 Creatinine 0.62 Estim Creat Clear Calc 187.4 Estimated GFR > 60 Random Glucose 114 Calcium 8.3 L Total Bilirubin 3.8 H Direct Bilirubin 2.4 H AST 167 H ALT 108 H Alkaline Phosphatase 192 H Total Protein 6.8 Albumin 2.9 L Medications Medications Current Medications Acetaminophen (Acetaminophen 325 Mg Tablet) 650 mg PO Q6H PRN PRN Reason: Pain, Mild 1-3,fever,headache Artificial Tears (Artificial Tears 15 Ml Drops) 2 drop EYE-BOTH Q4H PRN PRN Reason: Dry Eyes Calcium Carbonate (Calcium Carbonate 750 Mg Tab.Chew) 750 mg PO Q4H PRN PRN Reason: Heartburn Clonidine HCl (Clonidine Hcl 0.1 Mg Tablet) 0.1 mg PO BID [facility]; Protocol Last Admin: 02/15/25 08:28 Dose: 0.1 mg Folic Acid (Folic Acid 1 Mg Tablet) 1 mg PO DAILY [facility] Last Admin: 02/15/25 08:29 Dose: 1 mg Furosemide (Furosemide 40 Mg/4 Ml Vial) 40 mg IVPUSH DAILY [facility]; Protocol Last Admin: 02/15/25 08:27 Dose: 40 mg Gabapentin (Gabapentin 100 Mg Capsule) 200 mg PO TID [facility] Last Admin: 02/15/25 08:29 Dose: 200 mg Lactulose (Lactulose 20 Gm/30 Ml Solution) 30 gm PO QID [facility] Last Admin: 02/15/25 08:28 Dose: 30 gm Lorazepam (Lorazepam 0.5 Mg Tablet) 0.25 mg PO BID PRN PRN Reason: anxiety/restlessness Last Admin: 02/15/25 10:52 Dose: 0.25 mg Magnesium Hydroxide (Milk Of Magnesia 30 Ml Oral.Susp) 30 ml PO DAILY PRN PRN Reason: Constipation Magnesium Oxide (Magnesium Oxide 400 Mg Tablet) 400 mg PO DAILY [facility] Last Admin: 02/15/25 08:29 Dose: 400 mg Melatonin (Melatonin 3 Mg Tablet) 6 mg PO BEDTIME PRN PRN Reason: Insomnia Methadone HCl (Methadone Hcl 20 Mg/2 Ml Oral.Conc) 85 mg PO DAILY [facility] Last Admin: 02/15/25 08:28 Dose: 85 mg Morphine Sulfate (Morphine Sulfate Immed Release 15 Mg Tablet) 15 mg PO Q8H PRN PRN Reason: Pain, Severe (Pain Scale 7-10) Last Admin: 02/15/25 10:51 Dose: 15 mg Multivitamins/Vitamin C (Multivitamin Tablet) 1 tab PO DAILY [facility] Last Admin: 02/15/25 08:29 Dose: 1 tab Nicotine Polacrilex (Nicotine Polacrilex 2 Mg Gum) 2 mg BUCCAL Q2H PRN PRN Reason: Nicotine Cravings Last Admin: 02/15/25 10:52 Dose: 2 mg Ondansetron HCl (Ondansetron Hcl 4 Mg/2 Ml Vial) 4 mg IVPUSH Q8H PRN PRN Reason: Nausea and Vomiting Pharmacy Consult (Consult Rx Etoh Phenob Im/Po) 1 each MISCELLANE ONCE PRN; Protocol PRN Reason: Consult order Phenobarbital (Phenobarbital 30 Mg Tablet) 30 mg PO BID [facility]; Protocol Stop: 02/16/25 21:01 Last Admin: 02/15/25 08:29 Dose: 30 mg Phenobarbital (Phenobarbital 30 Mg Tablet) 30 mg PO DAILY [facility]; Protocol Stop: 02/18/25 09:01 Rifaximin (Rifaximin 550 Mg Tablet) 550 mg PO BID [facility] Last Admin: 02/15/25 08:29 Dose: 550 mg Sertraline HCl (Sertraline Hcl 100 Mg Tablet) 100 mg PO DAILY [facility] Last Admin: 02/15/25 08:29 Dose: 100 mg Sodium Chloride (0.9 % Sodium Chloride Flush 3 Ml Syringe) 3 ml IVFLUSH QSHIFT [facility] Last Admin: 02/15/25 08:29 Dose: 3 ml Spironolactone (Spironolactone 25 Mg Tablet) 50 mg PO DAILY [facility]; Protocol Last Admin: 02/15/25 08:29 Dose: 50 mg Tamsulosin HCl (Tamsulosin Hcl 0.4 Mg Capsule) 0.4 mg PO DAILY [facility] Last Admin: 02/15/25 08:29 Dose: 0.4 mg Thiamine HCl (Thiamine Hcl 100 Mg Tablet) 100 mg PO DAILY [facility] Last Admin: 02/15/25 08:29 Dose: 100 mg Allergies Allergies Allergy/AdvReac Type Severity Reaction Status Date / Time fish derived [fish] Allergy Anaphylaxis Verified 02/12/25 12:21 shellfish derived Allergy Anaphylaxis Verified 02/12/25 12:21 Assessment & Plan Assessment & Plan (1) Alcohol use disorder, severe, dependence: Status: Acute Code(s): F10.20 - Alcohol dependence, uncomplicated Assessment and Plan: * withdrawal sx resolved * patient reporting he is discharging today, so methadone dose will not be adjusted --concern that dose is too high * overdose prevention discussion with patient * IOP referral information sent to [facility] Total time managing care of this patient today __35__ minutes.
[2025-02-15 13:05] VITALS: BP 124/65; PULSE 103; RESP 18; TEMP 36.8; O2SAT 97
--- NOTE | 2025-02-15 13:57 | MHC.CM.PN ---
PT DCD HOME SELF CARE
--- NOTE | 2025-02-15 15:05 | PM.DS ---
DS: Providers Provider Date of Service: 02/15/25 Date of admission: 02/12/25 15:13 Date of discharge: 02/15/25 Primary care physician: Stephen Biggs MD Consults: 02/13/25 09:21 Addiction Medicine Provider Routine Consulting Provider: Addiction Covering Reason for consultation: daily etoh 02/15/25 08:45 Inpt - Recovery Team Routine Comment: Reason for consultation: RAPHAEL eval DS: Diagnosis Discharge Diagnosis (1) Alcohol use disorder, severe, dependence: Status: Acute (2) Acute hepatic encephalopathy: Status: Acute DS: Summary Hospital Course Hospital Course: 34 year old gentleman with PMH of substance use disorder, continued to drink 2 pt of alcohol daily, last drink 2 days ago, 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 report he did not get his day Methadone and feels off. He did not move his bowels in couple of days. He does not take lactulose as schedule and continue to drink 2 pints of alcohol. He moved in with his mother recently. report generalized abd pain that is chronic. No chest pain, palpitations, SOB, nausea, vomiting, diarrhea or urinary symptoms. In ED found to have high Ammonia level of 130s. Leukopenia and thrombocytopenia with chronic trasnaminitis. started on Lactulose, will be admitted for further work up and management. Hospital Course Admitted to general medical floor and started on 30 mg t.i.d. of lactulose and phenobarbital protocol. Tolerated phenobarb protocol well and last 2 days CIWA was 1. Ammonia responded to restart of lactulose. Patient seen by addiction Medicine and counseled however not receptive to suggestions. Patient will be discharged on lactulose and Xifaxan and will follow up with methadone clinic as scheduled. Strongly advised to avoid alcohol Time Attestation Discharge Coordination Time (in mins): 35 Quality: Safe Use of Opioids Does Pt have an Active Cancer Diagnosis on the Problem List?: No Quality: Stroke Does the patient have a stroke diagnosis?: No Physical Exam Vital Signs: Vital Signs: Last Vital Signs Temp 98.3 F 02/15/25 13:05 Pulse 103 H 02/15/25 13:05 Resp 18 02/15/25 13:05 BP 124/65 02/15/25 13:05 Pulse Ox 97 02/15/25 13:05 O2 Del Method Room Air 02/15/25 13:05 BMI result Body Mass Index 35.5 Const: Other: awake alert oriented x3 no acute distress Resp: Other: clear to auscultation bilaterally no rales rhonchi or wheezes Cardio: Other: no S4; positive S1-S2; no S3 murmurs rubs or gallops GI: Other: soft nontender nondistended normoactive bowel sounds Neuro: Other: cranial nerves 2-12 grossly intact as tested. Motor is 5/5 all extremities. Sensation is intact. Extrem: Other: No edema bilaterally DS: Data Data Completed and Pending Completed studies during hospitalization [Text1]: Procedures Detoxification Services for Substance Abuse Treatment (12/13/24) Discharge Plan Discharge Anticipated Discharge Date/Time: 02/15/25 14:59 Patient Disposition: Home, Self-Care Discharge Diagnosis: Alcohol withdrawal Referrals: [facility] [Provider Group] - 1 Day (Call IOP at [facility] to follow up with referral ) Stephen Biggs MD [Primary Care Provider] - 1 Week Discharge Medications: New Xifaxan 550 mg Tablet 550 mg PO BID Qty: 60 0RF Continued methadone 10 mg/mL Concentrate 85 mg PO DAILY Rx Instructions: [facility] [employer] [phone] clonidine HCl 0.1 mg tablet 0.1 mg PO BID sertraline 100 mg tablet 100 mg PO DAILY thiamine HCl (vitamin B1) 100 mg tablet 200 mg PO DAILY gabapentin 800 mg tablet 800 mg PO TID aripiprazole 15 mg tablet 15 mg DAILY Therapeutic-M 9 mg iron-400 mcg tablet 1 tab PO DAILY lorazepam 0.5 mg tablet 0.5 mg PO BID Qty: 10 0RF magnesium oxide 400 mg (241.3 mg magnesium) tablet 400 mg PO DAILY tamsulosin 0.4 mg capsule 0.4 mg PO DAILY folic acid 1 mg tablet 1 mg PO DAILY mirtazapine 7.5 mg tablet 7.5 mg PO DAILY furosemide 40 mg tablet 40 mg PO DAILY spironolactone 50 mg tablet 50 mg PO DAILY melatonin 5 mg Tablet 5 mg PO BEDTIME PRN (Reason: Sleep) Discharge Orders: Discharge Order (Routine); Ordered 02/15/25 Ordered By: Mathieu Hung Diet: Advance to usual diet Activity on Discharge: As tolerated Stand Alone Forms: Patient Portal Discharge page Print Language: Hebrew Activity Restrictions/Additional Instructions: given methadone 85mg at [facility] on 02/12/25 it is important you take all your medications and follow up with your doctor regularly return for any worsening symptoms or concerns. Care Plan Goals: Resume all medicines as taken to prior hospitalization Health Concerns: Add Xifaxan to your regimen 550 twice daily. It is important that you abstain from alcohol and continue your lactulose Plan of Treatment: Follow up with methadone Clinic and PCP next available Assessment: See discharge summary Patient Instructions: Cirrhosis of the Liver (ED), Opioid Use Disorder (ED)
[2025-02-15 15:10] VITALS: BP 108/62; PULSE 78; RESP 16; TEMP 36.3; O2SAT 96
--- NOTE | 2025-02-16 15:04 | P.CDIM_ITS ---
PROVIDER RESPONSE TEXT: To clarify, the appropriate diagnosis supported by the clinical indicators: Chronic hepatic failure QUERY TEXT: PHYSICIAN'S DOCUMENTATION REQUEST Date of Query: 02/15/2025 10:30 AM EDT Patient Name: Shay Nicholas Admit Date: 02/12/2025 Dear Mathieu Hung DO, A review of the medical record indicates additional documentation may be needed. Please review below and update the documentation accordingly. Clinical Indicators: Per Hospitalist progress note 02/14/25: decompensated liver cirrhosis ammonia 135 alcohol use with withdrawal The following diagnoses or signs and symptoms were noted in the patient record: on Phenobarbital protocol Based on the above, could you clarify the appropriate diagnosis, if significant, that supports the ab ove abnormalities and additional evaluation, monitoring, and/or treatment rendered: Acute and subacute hepatic failure without coma, present on admission Chronic hepatic failure Labs indicate a diagnosis of (please specify) Other (explain) Clinically unable to determine (explain) Thank you, Rosalva Reid RN Use of terms such as suspected, likely, concern for, or probable (associated with a specific diagnosi s that is being evaluated, monitored, or treated as if it exists) are acceptable and can be coded in the inpatient se tting, when documented at the time of discharge. Please use your independent medical judgment in providing your response. THIS QUERY IS PART OF THE PERMANENT MEDICAL RECORD
== END 2025-02-15 16:20 | disposition home or self-care (01) ==
LOC: HO.ED 14:37 → HO.EDOVER 15:21 → HO.S3 02-13 07:31
PROVIDERS: Admitting Provider Student in an Organized Health Care Education/Training Program; Emergency Provider Emergency Medicine; PCP Internal Medicine; Visit Provider Hospitalist
DX: K74.60 Unspecified cirrhosis of liver (principal); E72.20 Disorder of urea cycle metabolism, unspecified; K72.10 Chronic hepatic failure without coma; E87.70 Fluid overload, unspecified; K76.82 Hepatic encephalopathy; F17.210 Nicotine dependence, cigarettes, uncomplicated; Z71.6 Tobacco abuse counseling; F11.20 Opioid dependence, uncomplicated; B18.2 Chronic viral hepatitis C; F10.239 Alcohol dependence with withdrawal, unspecified; Z91.148 Patient's other noncompliance with medication regimen for other reason; Z79.899 Other long term (current) drug therapy
CPT/HCPCS: 36415; 80048; 80053; 80076; 82140; 83735; 85025; 99285; J1938; J2560; S9485

== ENCOUNTER → 2025-02-12 15:13 | Outpatient (BNV) | payer OTHER, SELFPAY | PROVIDERS: Admitting Provider Student in an Organized Health Care Education/Training Program; Emergency Provider Emergency Medicine; PCP Internal Medicine; Visit Provider Nurse Practitioner Psychiatric/Mental Health | DX: F10.20 Alcohol dependence, uncomplicated (principal) | CPT/HCPCS: 99222 ==

== ENCOUNTER → 2025-02-12 15:13 | Outpatient (BNV) | payer OTHER, SELFPAY | PROVIDERS: Admitting Provider Student in an Organized Health Care Education/Training Program; Emergency Provider Emergency Medicine; PCP Internal Medicine; Visit Provider Student in an Organized Health Care Education/Training Program | DX: K76.82 Hepatic encephalopathy (principal); R79.89 Other specified abnormal findings of blood chemistry; F11.20 Opioid dependence, uncomplicated; K74.60 Unspecified cirrhosis of liver; R60.9 Edema, unspecified; F10.10 Alcohol abuse, uncomplicated | CPT/HCPCS: 99223; 99232 ==

== ENCOUNTER 2025-03-28 13:16 | Outpatient (AMB) | payer OTHER, SELFPAY ==
--- NOTE | 2025-03-28 13:18 | A.OFFVIS_ITS ---
Vital Signs 03/28/25 13:21 Height 5 ft 5 in Weight 231 lb 7.766 oz BMI 38.5 BP 119/73 Blood Pressure Location Lt brachial Position Sitting Pulse 69 Intake Visit Reasons: abdominal pain Intake Note: Shay presents in the office as a follow up for abdominal pains. CC: States that he is jaundice and cirrhosis of liver - states he gained all this weight the past 6 months. States that he is having pains in the abdomen. Went to the [place] in [place] and they said he needs his gall bladder removed. 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 Allergies fish derived (fish) Allergy (Verified 03/28/25 13:22) Anaphylaxis shellfish derived Allergy (Verified 03/28/25 13:22) Anaphylaxis Medication List - Last Reconciled 03/28/25 by Jamilah Leal MD aripiprazole 15 mg DAILY clonidine HCl 0.1 mg PO BID folic acid 1 mg PO DAILY furosemide 40 mg PO DAILY gabapentin 800 mg PO TID lactulose 60 mL PO TID linaclotide (Linzess) 145 mcg PO QAM lorazepam 0.5 mg PO BID magnesium oxide 400 mg PO DAILY melatonin 5 mg PO BEDTIME PRN methadone 85 mg PO DAILY mirtazapine 7.5 mg PO DAILY joizzsmh-wxed-UP-calcium-mins 9 mg iron-400 mcg (Therapeutic-M) 1 tab PO DAILY quetiapine 150 mg PO BEDTIME rifaximin (Xifaxan) 550 mg PO BID sertraline 100 mg PO DAILY spironolactone 50 mg PO DAILY tamsulosin 0.4 mg PO DAILY thiamine HCl (vitamin B1) 200 mg PO DAILY HPI HPI abdominal pain: Details: GI clinic visit for this 34 YM with substance use disorder, continued to drink 2 pt of alcohol daily, history of IV drug use stop using few years ago (on methadone), history of hepatitis-C untreated, de-compensated liver cirrhosis, restless leg syndrome, anxiety depression admitted to [facility] [place] from 12/13/24 to 12/16/24 with right upper quadrant abdominal pain, weight gain and abdominal bloating. TODAY'S VISIT: Patient cc: CC: States that he is jaundice and cirrhosis of liver - states he gained all this weight the past 6 months. States that he is having pains in the abdomen. Went to the ER in [place] and they said he needs his gall bladder removed. Hospitalized at [facility] [place] in Feb, 2025 with hepatic encephalopathy States he has not been drinking since his last hospitalization in Feb, 2025. Continues to have RLQ pain which is constant and finds it hard to sleep Continues to have LE edema Taking lactulose 1-2 times daily and has a BM 1-2 times a day RLQ pain, abdominal pain, gain weight, acid reflex on and off, discomfort swallowing, and constipation with light red blood. Unsure how he acquired hepatitis C Hx of IVDA and denies needle sharing. Not doing too well - states he is in severe pain Feels bloated and has leg edema. Patient complains nausea, intermittent heartburn and dysphagia to liquids only, nausea. Gained 75 lbs over the past 3 months - barely eats. Intermittent constipation and has a BM once every 3 days - taking lactulose 30 ml 3 times a day. Noted passage of BRB per rectum 2 weeks ago after straning at stool. Patient denies major cardiac or pulmonary problems, loud snoring or sleep apnea Had wisdom teeth surgery and denies problems with anesthesia in the past. Takes ibuprofen sometimes and denies being on chronic anticoagulation. Pt reports having an EGD 6 to 12 months ago - does not recall where. Pt reports he started drinking heavily (1 pint/day) 2 yrs ago after going through a bad divorce States not drinking at all since he wants to be treated for Hep C. Pt has no primary care physician therefore not using lactulose. 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 He reports a positive family hx of alcohol related liver disease in his Dad Patient denies known family history of colon polyps, colon cancer or other GI malignancies. On 01/18/25 @ 15:18 Jamilah Leal Wrote To Jesica Fitzpatrick (2) He can be given Milk of Magnesia 30 ml x1 and prn once a day if he does not have a BM Carolyn! Can you move up his appt to 01/24/25 at 1:45 pm (Also leave the 03/28 appt as is - do not cancel) Thanks On 01/17/25 @ 09:34 Jesica Fitzpatrick Wrote To Jamilah Leal spoke w/ Lindsey, correctional counselor/case manager w/ his insurance - she states she is rather concerned about the patient. Lindsey states that patient is not the best historian, reports he is taking the lactulose, patient reports not having BMs throughout the course of the day - sometimes reports 1, sometimes none. patient is a new patient, zamzam kang has no PCP and it looks like he is scheduled to see you on March 28. any reccs in the meantime? it looks like this patient was an ED consult! PAST EGD/COLONOSCOPY LABS IN [facility] : Reviewed IMAGING STUDIES: 12/14/[address] SCAN SHOWED: 1. Marked distention of the gallbladder is nonspecific by CT. 2. CT findings of cirrhosis and portal hypertension, with splenomegaly and multiple upper abdominal varices. 12/13/24 ABD US SHOWED: Hepatocellular disease/cirrhosis. No cholelithiasis. No ascites. Questionable hydrops gallbladder. ENDOSCOPIC STUDIES: None in [facility] PAST GI HISTORY BY REVIEW OF MEDICAL RECORDS: 12/14/24 PT WAS SEEN DURING RECENT HOSPITALIZATION: Reason for consult: Abdominal pain 34 YM with substance use disorder, continued to drink 2 pt of alcohol daily, last drink 2 days ago, history of IV drug use stop using few years ago (on methadone), history of hepatitis-C untreated, decompensated liver cirrhosis, restless leg syndrome, anxiety depression seen at [facility] [place] [facility] ED on 12/13/24 with right upper quadrant abdominal pain weight gain and abdominal bloating. 03/29/24 Pt was admitted to [facility] [place] [place] with seizure in the setting of possible alcohol and benzodiazepine withdrawal. Pt complains of abdominal pain with distension for the past 1 month. He denies fever chills, no nausea, no vomiting, lightheadedness, dizziness, shortness of breath, Pt admits to wt gain of 60 to 100 lbs over the past 3 months. He has chronic leg edema with no worsening. Pt reports having an EGD 6 to 12 months ago. Pt reports he started drinking heavily (1 pint/day) 2 yrs ago after going through a bad divorce Pt has no primary care physician therefore not using lactulose . He reports a positive family hx of alcohol related liver disease in his Dad Lab evaluation in the ED showed magnesium 1.5, ammonia 123, albumin 3, stable renal function, electrolytes and hematocrit, influenza, RSV and SARS negative, LFTs were elevated with total bili 2.5, direct bili 1.5, AST 137, ALT 54, alk- phos 253, (Of note his LFTs are chronically elevated due to underlying liver disease and continued use of alcohol). Patient was admitted to [facility] [place] with RUQ pain and concern for hydrops gallbladder, hypo magnesemia and high likelihood of alcohol withdrawal with history of heavy alcohol use Pt was seen by Dr Beauchamp and advised a HIDA scan Plan 34 YM with substance use disorder, history of IV drug use (on methadone), history of hepatitis-C untreated, decompensated liver cirrhosis, restless leg syndrome, anxiety depression admitted to [facility] [place] on 12/13/24 with right upper quadrant abdominal pain weight gain and abdominal bloating. Pt admits to wt gain of 60 to 100 lbs over the past 3 months. He has chronic leg edema with no worsening. He reports a positive family hx of alcohol related liver disease in his Dad Patient was admitted to [facility] [place] with RUQ pain and concern for hydrops gallbladder, hypo magnesemia and high likelihood of alcohol withdrawal with history of heavy alcohol use Pt was seen by Dr Beauchamp and advised a HIDA scan Pt has ESLD due to chronic Hep C and METALD complicated by hepatic encephalopathy and GB disease (suspected Hydrops) Lab evaluation in the ED showed magnesium 1.5, ammonia 123, albumin 3, stable renal function, electrolytes and hematocrit, influenza, RSV and SARS negative, LFTs were elevated with total bili 2.5, direct bili 1.5, AST 137, ALT 54, alk- phos 253, (Of note his LFTs are chronically elevated due to underlying liver disease and continued use of alcohol). RECOMMENDATIONS: 1. Agree with IV pain medications and antiemetics 2. [facility] protocol for ETOH withdrawl 3. Await results of HIDA scan 4. If HIDA scan is negative, Abd CT scan with IV contrast for further evaluation of RUQ pain 5. Needs ETOH rehab after discharge to quit drinking 6. Needs to stop drinking before he can be treated for Hep C to ensure compliance with Hep C treatment [facility] Medical History Alcohol use disorder, severe, dependence Methadone maintenance therapy patient Cirrhosis Edema Alcohol abuse Increased ammonia level Cirrhosis Substance abuse Opiate use Social History Household Members: Other Household Members Other:: brother Housing: House Do you presently have visiting nurse or other home services: No Alcohol intake: current Alcohol intake frequency: former alcohol drinker Alcohol type: hard liquor Comment: pt refuses assistance OOB. Encouraged to call for assistance Patient Tobacco Use Status: Current everyday Tobacco user Tobacco use type: Cigarette Cigarette Packs Per Day: 1 Cigarettes Per Day: 20.0 e-Cigarette/Vaping Use: Currently Using service: No Physical Exam Vital Signs: Last Vital Signs Pulse 69 03/28/25 13:21 BP 119/73 03/28/25 13:21 BMI result Body Mass Index 38.5 Const General: no acute distress and anxious Nutritional Appearance: obese Orientation/consciousness: patient oriented x3 Limitations: no limitations HEENT Head: Yes normal to inspection Ears: hearing grossly normal bilaterally Eyes Sclerae: sclerae normal Pupils: Equal, round and reactive pupils present Neck Neck: Yes normal visual inspection Chest Chest palpation & inspection: normal inspection of the chest Resp Effort & Inspection: normal respiratory effort Auscultation: clear to auscultation bilaterally Cardio Palpation: normal PMI Rate: regular rate Rhythm: regular rhythm Heart sounds: S1 normal heart sound present, S2 normal heart sound present and no murmurs GI Palpation (GI): Soft to palpation, nontender and No hepatosplenomegaly present Auscultation: normal bowel sounds Rectal Exam - Male: Yes deferred Skin General skin exam: no rashes or lesions noted Neuro General: patient oriented x3, gait normal and moves all extremities Cranial nerves: Yes Equal, round and reactive pupils present Extrem General: Yes pedal edema (1+ bilateral pitting edema) Psych Appearance: grossly normal Mental Status: mental status grossly normal Assessment & Plan Assessment & Plan (1) Chronic constipation: Code(s): K59.09 - Other constipation Category: Medical (2) Right upper quadrant abdominal pain: Code(s): R10.11 - Right upper quadrant pain Category: Medical (3) Alcoholic cirrhosis of liver with ascites: Code(s): K70.31 - Alcoholic cirrhosis of liver with ascites Category: Medical (4) Hydrops of gallbladder: Code(s): K82.1 - Hydrops of gallbladder Category: Medical Plan 34 YM with substance use disorder, history of IV drug use (on methadone), history of hepatitis-C untreated, decompensated liver cirrhosis, restless leg syndrome, anxiety depression hospitalized at [facility] [place] on 12/13 to 12/16/24 with right upper quadrant abdominal pain weight gain and abdominal bloating. He admited to chronic leg edema and wt gain of 60 to 100 lbs over the preceding 3 months. Pt has ESLD due to chronic Hep C and METALD complicated by hepatic encephalopathy and GB disease (suspected Hydrops) LFTs were elevated with total bili 2.5, direct bili 1.5, AST 137, ALT 54, alk- phos 253, (Of note his LFTs are chronically elevated due to underlying liver disease and continued use of alcohol). MELD SCORE is 10. REDUCING THE RISK OF LIVER PROGRESSION: patient was advised to completely avoid use of alcohol and lose weight. Being obese puts him at risk of progressive steatotic liver injury and he needs to try to lose 10% of his weight. He should restrict the calorie intake, most importantly intake of sugar /sucrose/fructose Regular physical activity would also be beneficial, though it would not be expected to cause weight loss HCC SURVEILLANCE: The patient is at risk of developing hepatocellular carcinoma given the presence of cirrhosis and need 6 monthly imaging surveillance with either abdominal ultrasound (US) or multiphase cross-sectional imaging (CT or MRI). Last Abd CT on 12/14/24 had shown no focal liver lesions suspicious of HCC. He will be scheduled for follow-up liver ultrasound for ongoing surveillance. VACCINATIONS: [] does not have serological evidence of prior exposure to or vaccination against hepatitis a or hepatitis B. Given lack of serological evidence of immunity, [] needs to undergo vaccination against both hepatitis a and hepatitis B (with a series of 3 doses at 0, 1 and 6 months). Patient should also remain up-to-date with all age-appropriate vaccinations including vaccination against pneumococcus. As we no longer have vaccines available in our Clinic, I request PCP to arrange this. SURVEILLANCE FOR GASTROESOPHAGEAL VARICES: I will plan schedule an EGD to screen for varices. QUESTION OF LIVER TRANSPLANTATION: Pt will be referred to Liver Transplant Clinic for Hep C treatment since he is at risk of hepatic decompensation when hep C treatment is initiated HIDA SCAN SHOWED: There is normal uptake and excretion of the radiopharmaceutical by the liver. Common bile duct activity is seen at 25 minutes. Small bowel activity is noted at 30 minutes. No gallbladder activity is seen to 2 hours. Faint gallbladder activity is noted at 3 hours. There is activity within a distended gallbladder at 4.5 hours. Due to the delayed appearance of the gallbladder, intravenous CCK was not administered. Needs to stop drinking before he can be treated for Hep C to ensure compliance with treatment. 03/28/25 patient was advised to schedule an urgent abdominal ultrasound for follow-up of right-sided abdominal pain and suspected hydrops of the gallbladder - scheduled 04/05/25. If no improvement in GB distension, he will be referred to IR for percutaneous GB drainage Of note pt was seen by General surgery during his hospitalization and considered suboptimal surgical candidate secondary to his significant intercurrent comorbidities . FU in 6 weeks - scheduled 05/23/25 Orders: Orders Hepatitis C Antibody Reflex Today K70.31 - Alcoholic cirrhosis of liver with ascites US abdomen limited Today R10.11 - Right upper quadrant pain Complete Blood Count no Diff Today K70.31 - Alcoholic cirrhosis of liver with ascites Comprehensive Met. Panel Today K70.31 - Alcoholic cirrhosis of liver with ascites Lipase Today K70.31 - Alcoholic cirrhosis of liver with ascites Hepatitis C Viral Load Today K70.31 - Alcoholic cirrhosis of liver with ascites Hepatitis C Genotype Today K70.31 - Alcoholic cirrhosis of liver with ascites Hepatitis A IgG Today K70.31 - Alcoholic cirrhosis of liver with ascites Hepatitis B Profile Today K70.31 - Alcoholic cirrhosis of liver with ascites Medications: Changed From furosemide 40 mg PO DAILY To furosemide 40 mg PO DAILY 90 tabs 1RF 90 days Refilled lorazepam 0.5 mg PO BID 10 tabs 0RF Coding Level of Care Code Est Pt Level 4 (27858) Complex EM visit Add On G2211 Diagnoses Chronic constipation K59.09 Right upper quadrant abdominal pain R10.11 Alcoholic cirrhosis of liver with ascites K70.31 Hydrops of gallbladder K82.1 Time Spent (min) 25
[2025-03-28 13:21] VITALS: BP 119/73; PULSE 69; BMI 38.5
--- OUTSIDE RECORDS SUMMARY | 2025-03-28 14:23 | XMS_ITS | Clinical Summary ---
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 [facility] Parainfluenza Virus 2 Not Detected Not Detected LAB MICROBIOLOGY METHOD 02/25/2025 3:[address] [facility] Parainfluenza Virus 3 Not Detected Not Detected LAB MICROBIOLOGY METHOD 02/25/2025 3:[address] [facility] Parainfluenza Virus 4 Not Detected Not Detected LAB MICROBIOLOGY METHOD 02/25/2025 3:[address] [facility] RSV PCR Not Detected Not Detected LAB MICROBIOLOGY METHOD 02/25/2025 3:[address] [facility] Human Metapneumovirus A and B Not Detected Not Detected LAB MICROBIOLOGY METHOD 02/25/2025 3:[address] [facility] Rhinovirus/Entero virus Not Detected Not Detected LAB MICROBIOLOGY METHOD 02/25/2025 3:[address] [facility] Bordetella pertussis Not Detected Not Detected LAB MICROBIOLOGY METHOD 02/25/2025 3:[address] [facility] Bordetella parapertussis Not Detected Not Detected LAB MICROBIOLOGY METHOD 02/25/2025 3:[address] [facility] Mycoplasma pneumo by PCR Not Detected Not Detected LAB MICROBIOLOGY METHOD 02/25/2025 3:[address] [facility] Chlamydia pneumoniae Not Detected Not Detected LAB MICROBIOLOGY METHOD 02/25/2025 3:[address] [facility] SARS COV-2 Not Detected Not Detected LAB MICROBIOLOGY METHOD 02/25/2025 3:[address] [facility] Swab Both anterior nares / Unknown Non-blood Collection / Unknown 02/25/2025 1:35 AM EDT 02/25/2025 2:[address] [facility] - 02/25/2025 3:12 AM EDT Testing was performed using the [employer] Respiratory Pathogen PCR Assay. All results must be correlated with the clinical findings. Results should not be used as the sole basis for diagnosis. False Negative results may occur from the presence of sequence variants in the region targeted by the assay or the presence of inhibitors. Results may be affected by concurrent antiviral/antimicrobial therapy or levels of organisms that are below the limit of detection. Kim ROBERTO LAB MICROBIOLOGY - GENERAL [facility] Final Result [facility] [address] [place] [address], * XR Elbow 3+ Views Right (02/25/2025 1:01 AM EDT) Anatomical Region Laterality Modality Upper Extremities, Elbow Right Radiogr aphic Imaging 02/25/2025 8:10 AM EDT Impressions 02/25/2025 8:12 AM EDT Normal examination of the right elbow. Code 81757 -------- FINAL REPORT -------- Dictated By: Roscoe Willis Dictated Date: 02/25/2025 08:10 ET Assigned Physician: Roscoe Willis Reviewed and Electronically Signed By: Roscoe Willis Signed Date: 02/25/2025 08:12 ET Workstation ID: [id number] Transcribed By: Self Edit Transcribed Date: 02/25/2025 08:10 ET Narrative 02/25/2025 8:12 AM EDT HISTORY: The patient is a 34-year-old male with right elbow pain following a fall. FINDINGS: AP and lateral radiographs of the right elbow are obtained. The study demonstrates no fracture, dislocation, arthritic change, or other bony abnormality. No elbow joint effusion is seen. An intravenous catheter is incidentally noted anteromedial to the upper ulna. Procedure Note Roscoe Willis MD - 02/25/2025 HISTORY: The patient is a 34-year-old male with right elbow pain followinga fall. FINDINGS: AP and lateral radiographs of the right elbow are obtained. Thestudy demonstrates no fracture, dislocation, arthritic change, or otherbony abnormality. No elbow joint effusion is seen. An intravenous catheter is incidentally noted anteromedial to the upperulna. IMPRESSION: Normal examination of the right elbow. Code 94090 -------- FINAL REPORT -------- Dictated By: Roscoe Willis Dictated Date: 02/25/2025 08:10 ET Assigned Physician: Roscoe Willis Reviewed and Electronically Signed By: Roscoe Willis Signed Date: 02/25/2025 08:12 ET Workstation ID: [id number] Transcribed By: Self Edit Transcribed Date: 02/25/2025 08:10 ET us Mark Carballo MD IMG XR PROCEDURES Final Res ult * ECG 12 lead (02/24/2025 11:07 PM EDT) Only the most recent of2 resultswithin the time period is included. Ventricular Rate ECG 67 BPM [facility] Atrial Rate 67 BPM [facility] P-R Interval 160 ms GEM[facility] QRS Duration 74 ms GEM[facility] Q-T Interval 436 ms GEMUSE QTc 460 ms GEMUSE P Wave [place] 40 degrees GEMUSE R [place] 17 degrees GEMUSE T [place] 11 degrees GEMUSE ECG Interpretation Normal sinus rhythm Normal ECG When compared with ECG of 24-FEB-2025 20:54, (unconfirmed) No significant change was found Confirmed by Lucy KENNEDY JAMES ([id number]) on 02/26/2025 5:55:31 AM GEMUSE 02/24/2025 11:0 7 PM EDT 02/26/2025 5:55 AM EDT Luigi Tim MD ECG ORDERABLES Final Result [facility] * CT Cervical Spine wo Contrast (02/24/2025 10:56 PM EDT) Anatomical Region Laterality Modality Spine, C-spine Computed Tomogra phy 02/24/2025 11:2 4 PM EDT Impressions 02/24/2025 11:24 PM EDT Impression: No acute processes This document has been electronically signed by: Javier Horan MD on 02/24/2025 23:24:57 Narrative 02/24/2025 11:24 PM EDT INDICATION: fall / syncope CT cervical spine without contrast Comparison: None Findings: No acute fracture or dislocation. Posterior alignment is normal. No significant degenerative change. No radiopaque foreign bodies. Procedure Note Javier Horan MD - 02/24/2025 INDICATION: fall / syncope CT cervical spine without contrast Comparison: None Findings: No acute fracture or dislocation. Posterior alignment is normal. No significant degenerative change. No radiopaque foreign bodies. IMPRESSION: Impression: No acute processes This document has been electronically signed by: Javier Horan MD on 02/24/2025 23:24:[address] PROCEDURES Final Result * CT Head wo Contrast (02/24/2025 10:56 PM EDT) Anatomical Region Laterality Modality Head and Neck Computed Tomogra phy 02/24/2025 11:2 5 PM EDT Impressions 02/24/2025 11:25 PM EDT Impression: Prominent chronic ischemic white matter disease for age Clinical correlation will be needed No acute intracranial process This document has been electronically signed by: Javier Horan MD on 02/24/2025 23:25:15 Narrative 02/24/2025 11:25 PM EDT INDICATION: syncope head injry CT head without contrast Comparison: None Findings: No intracranial mass, midline shift, hydrocephalus, or acute hemorrhage. Mild chronic ischemic white matter disease without volume loss. This is prominent for patient's age, please correlate clinically. No acute process in sinuses or mastoids. No acute bony abnormality. Procedure Note Javier Horan MD - 02/24/2025 INDICATION: syncope head injry CT head without contrast Comparison: None Findings: No intracranial mass, midline shift, hydrocephalus, or acute hemorrhage. Mild chronic ischemic white matter disease without volume loss. This is prominent for patient's age, please correlate clinically. No acute process in sinuses or mastoids. No acute bony abnormality. IMPRESSION: Impression: Prominent chronic ischemic white matter disease for age Clinical correlation will be needed No acute intracranial process This document has been electronically signed by: Javier Horan MD on 02/24/2025 23:25:15 Kim ROBERTO [facility] CT PROCEDURES Final Result * (ABNORMAL) Urinalysis with reflex microscopic and culture (02/24/2025 10:47 PM EDT) Specific [place] Urine 1.012 1.003 - 1.030 LAB URINALYSIS - AUTOMATED METHOD 02/24/2025 11:[address] [facility] pH, Urine 8.0 5.0 - 8.0 pH LAB URINALYSIS - AUTOMATED METHOD 02/24/2025 11:[address] [facility] Leukocytes, Urine Small(A) Negative LAB URINALYSIS - AUTOMATED METHOD 02/24/2025 11:[address] [facility] Nitrite, Urine Negative Negative LAB URINALYSIS - AUTOMATED METHOD 02/24/2025 11:[address] [facility] Protein, Urine Negative <=Trace mg/dL LAB URINALYSIS - AUTOMATED METHOD 02/24/2025 11:45 PM [facility] Glucose, Urine Negative Negative mg/dL LAB URINALYSIS - AUTOMATED METHOD 02/24/2025 11:45 PM [facility] Ketones, Urine Negative Negative mg/dL LAB URINALYSIS - AUTOMATED METHOD 02/24/2025 11:45 PM [facility] Urobilinogen, Urine 1.0 0.2 - 1.0 mg/dL LAB URINALYSIS - AUTOMATED METHOD 02/24/2025 11:45 PM [facility] Bilirubin, Urine Negative Negative LAB URINALYSIS - AUTOMATED METHOD 02/24/2025 11:45 PM [facility] Blood, Urine Negative Negative LAB URINALYSIS - AUTOMATED METHOD 02/24/2025 11:45 PM [facility] RBC, Urine 1.2 0 - 4 /HPF LAB URINALYSIS - AUTOMATED METHOD 02/24/2025 11:45 PM [facility] WBC, Urine 10.4(H) 0 - 4 /HPF LAB URINALYSIS - AUTOMATED METHOD 02/24/2025 11:45 PM [facility] Squamous Epithelial, Urine 12 0 - 60 /LPF LAB URINALYSIS - AUTOMATED METHOD 02/24/2025 11:45 PM [facility] Bacteria, Urine Negative Negative /HPF LAB URINALYSIS - AUTOMATED METHOD 02/24/2025 11:45 PM [facility] Hyaline Casts, Urine 0.4 0 - 3 /LPF LAB URINALYSIS - AUTOMATED METHOD 02/24/2025 11:45 PM [facility] Urine Urine specimen obtained by clean catch procedure / Unknown Non-blood Collection / Unknown 02/24/2025 10:47 PM EDT 02/24/2025 11:09 PM EDT us Kim ROBERTO LAB URINE ORDERABLES Final Resu lt [facility] [address] [place] [address], * (ABNORMAL) Drug abuse screen 8a panel, urine (02/24/2025 10:47 PM EDT) Amphetamine Screen, Ur Negative Negative LAB CHEMISTRY METHOD 5 11:[address] [facility] Comment:Certain OTC medicati ons containing ephedrine, phenylephrine, pseudoephedrine and phenylpropanolamine can cause false positive results. Barbiturate Screen, Ur Positive(A ) Negative LAB CHEMISTRY METHOD 5 11:[address] [facility] Benzodiazepine Screen, Ur Negative Negative LAB CHEMISTRY METHOD 5 11:[address] [facility] Cocaine Screen, Ur Negative Negative LAB CHEMISTRY METHOD 5 11:[address] [facility] Opiate Screen, Ur Negative Negative LAB CHEMISTRY METHOD 5 11:[address] [facility] Cannabinoid (THC) Screen, Ur Negative Negative LAB CHEMISTRY METHOD 5 11:[address] [facility] Comment:Specimens from patie nts taking pantoprazole sodium (Protonix) have been shown to produce false positive results. Oxycodone Screen, Ur Negative Negative LAB CHEMISTRY METHOD 5 11:[address] [facility] Fentanyl, Ur Negative Negative LAB CHEMISTRY METHOD 5 11:[address] [facility] Urine Urine specimen obtained by clean catch procedure / Unknown Non-blood Collection / Unknown 02/24/2025 10:47 PM EDT 02/24/2025 11:[address] [facility] - 02/24/2025 11:55 PM EDT Assay cutoffs: Amphetamines 1000 ng/mL Barbiturates 200 ng/mL Benzodiazepines 200 ng/mL Cocaine 300 ng/mL Fentanyl 1 ng/mL Opiates 300 ng/mL Oxycodone 100 ng/mL THC 50 ng/mL Semi-quantitative assay for screening purposes only. Unconfirmed screening result should not be used for non-medical purposes. *ALTERNATE METHOD CONFIRMATION DONE UPON REQUEST ONLY* Kim ROBERTO LAB URINE ORDERABLES Final Resu lt Performing Organization Address [facility] de Phone Number [facility] [address] [place] [address], * (ABNORMAL) Methadone, urine (02/24/2025 10:47 PM EDT) Methadone Screen, Urine Positive (A) Negative LAB CHEMISTRY METHOD 02/25/2025 2:[address] [facility] Comment: Assay cutoff 300 ng/mL Semi-quantitative assay for screening purposes only. Unconfirmed screening result should not be used for non-medical purposes. *ALTERNATE METHOD CONFIRMATION DONE UPON REQUEST ONLY* Urine Urine specimen obtained by clean catch procedure / Unknown Non-blood Collection / Unknown 02/24/2025 10:47 PM EDT 02/24/2025 11:09 PM EDT Mark Carballo MD LAB URINE ORDERABLES Final Result Performing Organization Address [facility] de Phone Number [facility] [address] [place] [address], * Culture urine (02/24/2025 10:47 PM EDT) Culture, Urine No growth 02/26/2025 9:[address] [facility] Urine Urine specimen obtained by clean catch procedure / Unknown Non-blood Collection / Unknown 02/24/2025 10:47 PM EDT 02/24/2025 11:45 PM EDT Kim ROBERTO LAB MICROBIOLOGY - GENERAL ORDE RABLES Final Result Performing Organization Address [facility]/ZIP Co de Phone Number [facility] [address] [place] [address], [place] [phone] * Troponin I high sensitivity (02/24/2025 10:27 PM EDT) Only the most recent of2 resultswithin the time period is included. High Sensitivity Troponin I 3 <=79 ng/L LAB CHEMISTRY METHOD 02/24/2025 11:[address] [facility] Blood Venous blood specimen / Unknown Venipuncture / Unknown 02/24/2025 10:27 PM EDT 02/24/2025 10:[address] [facility] - 02/24/2025 11:00 PM EDT High levels of biotin in samples may falsely decrease hsTroponin values. Use caution when interpreting hsTroponin results in patients taking biotin who exhibit renal impairment (eGFR <60) or in patients taking more than 20 mg/day of biotin. Luigi Tim MD LAB BLOOD ORDERABLES Final Resu lt Performing Organization Address [facility] de Phone Number [facility] [address] [place] [address], [place] [phone] * Lipase (02/24/2025 10:27 PM EDT) Lipase 67 13 - 75 unit/L LAB CHEMISTRY METHOD 02/24/2025 11:[address] [facility] Blood Venous blood specimen / Unknown Venipuncture / Unknown 02/24/2025 10:27 PM EDT 02/24/2025 10:32 PM EDT Luigi Tim MD LAB BLOOD ORDERABLES Final Resu lt Performing Organization Address [facility]/ZIP Co de Phone Number [facility] [address] [place] [address], [place] [phone] * (ABNORMAL) Ethanol (02/24/2025 10:27 PM EDT) Ethanol Level 50(H) 0 - 10 mg/dL LAB CHEMISTRY METHOD 02/24/2025 11:[address] [facility] Blood Venous blood specimen / Unknown Venipuncture / Unknown 02/24/2025 10:27 PM EDT 02/24/2025 10:32 PM EDT us Kim ROBERTO LAB BLOOD ORDERABLES Final Resu lt [facility] [address] [place] [address], [place] [phone] * XR Chest 2 Views (02/24/2025 10:18 PM EDT) Anatomical Region Laterality Modality Body Radiographic Bianca ging 02/25/2025 8:01 AM EDT Impressions 02/25/2025 8:01 AM EDT Limited depth of inspiration. The lungs are clear. Code 12958 -------- FINAL REPORT -------- Dictated By: Roscoe Willis Dictated Date: 02/25/2025 08:01 ET Assigned Physician: Roscoe Willis Reviewed and Electronically Signed By: Roscoe Willis Signed Date: 02/25/2025 08:01 ET Workstation ID: [id number] Transcribed By: Self Edit Transcribed Date: 02/25/2025 08:01 ET Narrative 02/25/2025 8:01 AM EDT HISTORY: The patient is a 34-year-old male with asthma, presenting with chest pain and weakness. FINDINGS: PA and lateral radiographs of the chest, without previous for comparison, demonstrate suboptimal depth of inspiration. The bony structures are of normal appearance. The cardiac and mediastinal contours are within normal limits allowing for shallow inspiration. The lungs and costophrenic angles are clear. Procedure Note Roscoe Willis MD - 02/25/2025 HISTORY: The patient is a 34-year-old male with asthma, presenting withchest pain and weakness. FINDINGS: PA and lateral radiographs of the chest, without previous forcomparison, demonstrate suboptimal depth of inspiration. The bonystructures are of normal appearance. The cardiac and mediastinal contoursare within normal limits allowing for shallow inspiration. The lungs andcostophrenic angles are clear. IMPRESSION: Limited depth of inspiration. The lungs are clear. Code 21389 -------- FINAL REPORT -------- Dictated By: Roscoe Willis Dictated Date: 02/25/2025 08:01 ET Assigned Physician: Roscoe Willis Reviewed and Electronically Signed By: Roscoe Willis Signed Date: 02/25/2025 08:01 ET Workstation ID: [id number] Transcribed By: Self Edit Transcribed Date: 02/25/2025 08:01 ET Luigi Tim MD IMG XR PROCEDURES Final Result * B-type natriuretic peptide (02/24/2025 9:13 PM EDT) BNP 61 <=100 pcg/mL LAB CHEMISTRY METHOD 02/24/2025 9:[address] [facility] Blood Venous blood specimen / Unknown Venipuncture / Unknown 02/24/2025 9:13 PM EDT 02/24/2025 9:18 PM EDT Luigi Tim MD LAB BLOOD ORDERABLES Final Resu lt [facility] [address] [place] [address], from Last 3 Months Insurance [facility] [employer] Advance Directives * Full Code - Default (Latest Code Status on File) Date Activated Date Inactivated Comments 02/25/2025 2:32 AM 02/27/2025 3:35 PM This is orde r is used when code status has not been discussed with the patient, or code status is otherwise unknown/unconfirmed To update the patient's code status, place a code status order. Do not modify or discontinue any currently active code status orders. * Full Code - Default Date Activated Date Inactivated Comments 12/21/2024 2:55 [...] currently active code status orders. Care Teams Labor Specialist Relationship Specialty Start Date End Date Kim Lemus MD [address] [place] [address] [place] PCP - General Internal Medicine 05/11/19
== END 2025-03-28 14:05 | disposition home or self-care (01) ==
LOC: HO.HGI 13:16
PROVIDERS: PCP Internal Medicine; Visit Provider Internal Medicine Gastroenterology
DX: K59.09 Other constipation (principal); R10.11 Right upper quadrant pain; K70.31 Alcoholic cirrhosis of liver with ascites; K82.1 Hydrops of gallbladder
CPT/HCPCS: 99214; G2211

== ENCOUNTER 2025-03-28 13:16 | Outpatient (REF) | payer OTHER, SELFPAY ==
[2025-03-28 15:40] LABS: Hematocrit 37.1 % (42.0-52.0); Hemoglobin 12.8 g/dl (14.0-18.0); Mean Corpuscular HGB Conc 34.5 g/dl (31.0-36.0); Mean Corpuscular Hemoglobin 31.4 pg (27.0-33.0); Mean Corpuscular Volume 91.2 fL (80.0-98.0); Mean Platelet Volume 11.4 fL (9.4-12.4); Red Blood Count 4.07 X10*6/uL (4.60-5.80); Red Cell Distribution Width 14.5 % (11.0-16.0); White Blood Count 2.8 X10*3/uL (4.8-10.8)
[2025-03-28 15:42] LABS: Platelet Count 56 X10*3/uL (160-400)
[2025-03-28 16:07] LABS: Alanine Aminotransferase 96 U/L (0-40); Alkaline Phosphatase 191 U/L (39-117); Anion Gap 11 (12-20); Aspartate Amino Transferase 169 U/L (5-37); Bilirubin Total 4.9 mg/dL (0.0-1.0); Blood Urea Nitrogen 7 mg/dL (9-16); Calcium 8.6 mg/dL (8.4-10.2); Carbon Dioxide 27 mmol/L (22-29); Chloride 104 mmol/L (96-108); Estimated Glomerular Filt Rate > 60; Glucose Random 95 mg/dL (60-115); Lipase 37 U/L (8-78); Potassium 3.8 mmol/L (3.3-5.1); Sodium 138 mmol/L (135-145); Total Protein 6.8 g/dL (6.5-8.0)
[2025-03-29 12:10] LABS: ~HepC Num1 14.02 S/CO (0.00-0.79); ~Hepatitis C Antibody Reactive (Nonreactive)
[2025-03-29 13:17] LABS: Hepatitis A Antibody IgG Nonreactive (Nonreactive); ~Hepatitis A Antibody IgG 0.61 S/CO (0.00-0.99)
[2025-04-02 20:39] LABS: HCV RNA PCR Qn 136000 IU/mL (NOT DETECTED); HCV RNA PCR Qn 5.13 Log IU/mL (NOT DETECTED)
[2025-04-05 17:29] LABS: HCV Genotype LiPA 3 (Not Detected)
[2025-04-08 15:17] LABS: FIB-ALT 69 U/L (9-46); FIB-Alpha-2-Macroglobulin 239 mg/dL (106-279); FIB-Apolipoprotein A1 85 mg/dL (94-176); FIB-GGT 110 U/L (3-90); FIB-Haptoglobin 42 mg/dL (43-212); FIB-Total Bilirubin 4.3 mg/dL (0.2-1.2); Liver Fibrosis Stage F4; Nec Inflam Act Grade A3; Nec Inflam Act Score 0.64
== END 2025-03-28 13:17 | disposition home or self-care (01) ==
LOC: HO.LAB 13:16
PROVIDERS: PCP Internal Medicine; Visit Provider Internal Medicine Gastroenterology
DX: K70.31 Alcoholic cirrhosis of liver with ascites (principal); K59.09 Other constipation; R10.11 Right upper quadrant pain; K82.1 Hydrops of gallbladder
CPT/HCPCS: 36415; 80053; 81596; 83690; 85027; 86708; 86803; 87522; 87902; 99212

== ENCOUNTER 2025-04-05 09:52 | Outpatient (REF) | payer OTHER, SELFPAY ==
--- NOTE | ~2025-04-05 | US_ITS ---
EXAMINATION: US ABDOMEN LIMITED HISTORY: R10.11 - Right upper quadrant pain TECHNIQUE: Real-time grayscale ultrasound imaging of the right upper quadrant was performed and images were reviewed. COMPARISON: Comparison is made with the prior examination dated 12/13/2024. FINDINGS: Liver: The right lobe of the liver measures 15.7 cm in size. The left lobe of the liver measures 11.3 cm in size. The liver demonstrates mildly increased echotexture, consistent with steatosis. No focal mass or intrahepatic biliary ductal dilatation is identified. There is normal hepatopedal flow in the portal vein. Gallbladder and biliary tree: There is a 1.3 cm polyp in the gallbladder. The gallbladder is distended, without evidence of calculi, wall thickening, or pericholecystic fluid. There is no sonographic Valenzuela sign. The common bile duct is normal in caliber measuring 9 mm. Right Kidney: The right kidney measures 11.7 cm in length. The right kidney is unremarkable, without evidence of masses, hydronephrosis, or calculi. Pancreas: The pancreas is obscured by bowel gas. Abdominal aorta and inferior vena cava: The visualized portions of the abdominal aorta and inferior vena cava are normal in caliber. There is no free fluid in the right upper quadrant. US/US abdomen limited IMPRESSION: 1. Mild hepatic steatosis. 2. Distended gallbladder demonstrating a 1.3 cm polyp. Follow-up is recommended. Electronically signed by: Conrad Rea MD 04/05/2025 12:09 PM EDT
--- OUTSIDE RECORDS SUMMARY | 2025-04-05 10:25 | XMS_ITS | Clinical Summary ---
Author Organization [facility] Address [address] [place] [address] Phone Care Team Providers Care Channel Opener Name Role Phone Kim Lemus MD Primary Care Provider [phone] Allergies Active Allergy Reactions Criticality Noted Date [...] by mouth 1 (one) time each day. 10/07/20 24 Active methadone (DOLOPHINE) 5 mg tablet Take 17 tablets (85 mg total) by mouth 1 (one) time each day. Active multivitamin minerals-iron (Therapeutic-M) 9 mg iron-400 mcg tablet Take 1 tablet by mouth 1 (one) time each day. 30 tablet 12/24/19 25 Active folic acid (FOLVITE) 1 mg tablet [...] mouth 1 (one) time each day. Active nicotine (NICODERM CQ) 21 mg/[address] 1 patch on the skin 1 (one) time each day for 14 days. 14 each 02/29/20 25 Active LORazepam (ATIVAN) 0.5 mg tablet Take 1 tablet (0.5 mg total) by mouth 1 (one) time each day if needed for anxiety for up to 6 days. Max Daily Amount: 0.5 mg 6 tablet 02/28/20 25 Active naloxone (NARCAN) 4 mg/0.1 mL nasal sprayIndications:o pioid overdose,opioid-in duced respiratory depression Administer 1 each (4 mg total) into affected nostril(s) if needed for opioid reversal or respiratory depression. Give 4 mg (1 spray) into one nostril. May repeat every 2-3 minutes if needed, alternating nostrils, until medical assistance becomes available. 2 each 11 02/28/20 25 Active lactulose (CEPHULAC) 20 gram packetIndications: Acute hepatic encephalopathy (CMS/HCC V24, CMS/HCC V28) Take 2 packets (40 g total) by mouth 3 (three) times a day. 180 packet 02/28/20 25 025 Active Problems Problem Noted Date Diagnosed Date Acute hepatic encephalopathy (CMS/HCC V24, CMS/H CC V28) 02/25/2025 Hepatic encephalopathy (CMS/HCC V24, CMS/HCC V28 ) 12/21/2024 Right upper quadrant abdominal pain 12/21/2024 Encounters Date Type Department Care Team Description 02/24/2025 8:56 PM EDT - 02/27/2025 1:30 PM EDT Hospital Encounter [facility] [address] [place] [address] Mayo Carballo MD Zipagan, James T, MD ETOH abuse (Primary Dx); Hepatic encephalopathy ([facility] V24, [facility] V28); Acute hepatic encephalopathy ([facility] V24, [facility] V28) Discharge Disposition: Home or Self Care from Last 3 Months Surgical History Surgery Date Site/Laterality Comments WISDOM TOOTH EXTRACTION PROCEDURE: HISTORICAL WISDOM TEETH EXTRACTION Medical History Medical History Date Comments Pneumonia DX:Pneumonia; CO MMENT: 2006 Cirrhosis ([facility] V24, [facility] V28) Pancreatitis Seizures ([facility] V24, [facility] V28) Viral hepatitis C Alcohol use disorder, severe , dependence ([facility] V24, [facility] V28) Severe benzodiazepine use di sorder ([facility] V24, [facility] V28) Opioid dependence on agonist therapy ([facility] V24, [facility] V28) Depression Anxiety Family History Medical History [...] Record ed Within the last 3 months, danya noyola many times did you visit the emergency [...] for your loved ones. For example, child and family counselor or elderly care for an older adult? [...] of2 resultswithin the time period is included. us Provider Onbase MD ECG ORDERABLES Final Result * Lavender tube (02/27/2025 6:03 AM EDT) Only the most recent of2 resultswithin the time period is included. Extra Tube Hold for add-ons. 02/27/2025 8:01 AM EDT [facility] Comment:Auto resulted. Blood Venous blood specimen / Unknown Venipuncture / Unknown 02/27/2025 6:03 AM EDT 02/27/2025 6:58 AM EDT Lucia Flowers MD LAB BLOOD ORDERABLES Final Re sult Performing Organization Address City/[facility]/ZIP Co de Phone Number [facility] [address] [place] [address], [place] [phone] * Phosphorus (02/27/2025 6:03 AM EDT) Only the most recent of2 resultswithin the time period is included. Phosphorus 3.3 2.5 - 4.5 mg/dL LAB CHEMISTRY METHOD 02/27/2025 7:38 AM EDT [facility] Blood Venous blood specimen / Unknown Venipuncture / Unknown 02/27/2025 6:03 AM EDT 02/27/2025 6:56 AM EDT Valerie ROBERTO LAB BLOOD ORDERABLES Tayler l Result [facility] [address] [place] [address], [place] [phone] * (ABNORMAL) Magnesium (02/27/2025 6:03 AM EDT) Only the most recent of4 resultswithin the time period is included. Magnesium 1.5(L) 1.9 - 2.6 mg/dL LAB CHEMISTRY METHOD 02/27/2025 7:38 AM EDT [facility] Blood Venous blood specimen / Unknown Venipuncture / Unknown 02/27/2025 6:03 AM EDT 02/27/2025 6:56 AM EDT Valerie ROBERTO LAB BLOOD ORDERABLES Tayler gonzalez Result [facility] [address] [place] [address], [place] [phone] * (ABNORMAL) Comprehensive metabolic panel (02/27/2025 6:03 AM EDT) Only the most recent of4 resultswithin the time period is included. Sodium 133 133 - 145 mmol/L LAB CHEMISTRY METHOD 02/27/2025 7:38 AM [facility] Potassium 4.0 3.5 - 5.5 mmol/L LAB CHEMISTRY METHOD 02/27/2025 7:38 AM [facility] Chloride 99 96 - 110 mmol/L LAB CHEMISTRY METHOD 02/27/2025 7:38 AM [facility] CO2 29 21 - 32 mmol/L LAB CHEMISTRY METHOD 02/27/2025 7:38 AM [facility] Anion Gap 5 3 - 11 LAB CHEMISTRY METHOD 02/27/2025 7:38 AM [facility] Glucose 107(H) 70 - 100 mg/dL LAB CHEMISTRY METHOD 02/27/2025 7:38 AM [facility] BUN 8 5 - 25 mg/dL LAB CHEMISTRY METHOD 02/27/2025 7:38 AM [facility] Creatinine 0.76 0.70 - 1.30 mg/dL LAB CHEMISTRY METHOD 02/27/2025 7:38 AM [facility] eGFR 122 >=60 mL/min/1. 73m2 LAB CHEMISTRY METHOD 02/27/2025 7:38 AM [facility] Comment:Calculation based on the Chronic Kidney Disease Epidemiology Collaboration (CKD-EPI) equation refit without adjustment for race. BUN/Creatinine Ratio 10.5 LAB CHEMISTRY METHOD 02/27/2025 7:38 AM [facility] Calcium 8.2(L) 8.5 - 10.5 mg/dL LAB CHEMISTRY METHOD 02/27/2025 7:38 AM [facility] AST (SGOT) 142(H) 10 - 42 unit/L LAB CHEMISTRY METHOD 02/27/2025 7:38 AM [facility] ALT (SGPT) 102(H) 10 - 60 unit/L LAB CHEMISTRY METHOD 02/27/2025 7:38 AM [facility] Alkaline Phosphatase 239(H) 42 - 121 unit/L LAB CHEMISTRY METHOD 02/27/2025 7:38 AM [facility] Total Protein 6.9 6.0 - 8.0 g/dL LAB CHEMISTRY METHOD 02/27/2025 7:38 AM [facility] Albumin 2.7(L) 3.2 - 5.0 g/dL LAB CHEMISTRY METHOD 02/27/2025 7:38 AM [facility] Total Bilirubin 2.5(H) 0.0 - 1.4 mg/dL LAB CHEMISTRY METHOD 02/27/2025 7:38 AM [facility] Blood Venous blood specimen / Unknown Venipuncture / Unknown 02/27/2025 6:03 AM EDT 02/27/2025 6:56 AM EDT Valerie ROBERTO LAB BLOOD ORDERABLES Tayler l Result [facility] [address] [place] [address], * (ABNORMAL) Ammonia (02/27/2025 6:02 AM EDT) Only the most recent of3 resultswithin the time period is included. Ammonia 103(H) 11 - 35 mcmol/L LAB CHEMISTRY METHOD 02/27/2025 7:29 AM EDT [facility] Blood Venous blood specimen / Unknown Venipuncture / Unknown 02/27/2025 6:02 AM EDT 02/27/2025 6:57 AM EDT Valerie ROBERTO LAB BLOOD ORDERABLES Tayler l Result [facility] [address] [place] [address], [place] [phone] * (ABNORMAL) Urinalysis with reflex microscopic (02/26/2025 1:53 PM EDT) Specific [place] Urine 1.015 1.003 - 1.030 LAB URINALYSIS - AUTOMATED METHOD 02/26/2025 3:32 PM [facility] pH, Urine 7.0 5.0 - 8.0 pH LAB URINALYSIS - AUTOMATED METHOD 02/26/2025 3:32 PM [facility] Leukocytes, Urine Negative Negative LAB URINALYSIS - AUTOMATED METHOD 02/26/2025 3:32 PM [facility] Nitrite, Urine Negative Negative LAB URINALYSIS - AUTOMATED METHOD 02/26/2025 3:32 PM [facility] Protein, Urine Negative <=Trace mg/dL LAB URINALYSIS - AUTOMATED METHOD 02/26/2025 3:32 PM [facility] Glucose, Urine Negative Negative mg/dL LAB URINALYSIS - AUTOMATED METHOD 02/26/2025 3:32 PM [facility] Ketones, Urine Negative Negative mg/dL LAB URINALYSIS - AUTOMATED METHOD 02/26/2025 3:32 PM [facility] Urobilinogen, Urine 2.0(A) 0.2 - 1.0 mg/dL LAB URINALYSIS - AUTOMATED METHOD 02/26/2025 3:32 PM [facility] Bilirubin, Urine Negative Negative LAB URINALYSIS - AUTOMATED METHOD 02/26/2025 3:32 PM EDT [facility] Blood, Urine Negative Negative LAB URINALYSIS - AUTOMATED METHOD 02/26/2025 3:32 PM EDT [facility] RBC, Urine 2.1 0 - 4 /HPF LAB URINALYSIS - AUTOMATED METHOD 02/26/2025 3:32 PM EDT [facility] WBC, Urine 0.4 0 - 4 /HPF LAB URINALYSIS - AUTOMATED METHOD 02/26/2025 3:32 PM EDT [facility] Squamous Epithelial, Urine 2 0 - 60 /LPF LAB URINALYSIS - AUTOMATED METHOD 02/26/2025 3:32 PM EDT [facility] Bacteria, Urine Negative Negative /HPF LAB URINALYSIS - AUTOMATED METHOD 02/26/2025 3:32 PM EDT [facility] Hyaline Casts, Urine 0.0 0 - 3 /LPF LAB URINALYSIS - AUTOMATED METHOD 02/26/2025 3:32 PM EDT [facility] Urine Urine specimen obtained by clean catch procedure / Unknown Non-blood Collection / Unknown 02/26/2025 1:53 PM EDT 02/26/2025 2:41 PM EDT Valerie ROBERTO LAB URINE ORDERABLES Tayler l Result [facility] [address] [place] [address], [place] [phone] * Vargas urine culture tube (02/26/2025 1:53 PM EDT) Only the most recent of2 resultswithin the time period is included. Extra Tube Hold for add-ons. 02/26/2025 4:01 PM EDT [facility] Comment:Auto resulted. Urine Urine specimen obtained by clean catch procedure / Unknown 02/26/2025 1:53 PM EDT 02/26/2025 2:41 PM EDT us Lucia Flowers MD LAB URINE ORDERABLES Final Re sult Performing Organization Address [facility]/ZIP Co de Phone Number [facility] [address] [place] [address], [place] [phone] * SST tube (02/26/2025 10:30 AM EDT) [facility] Extra Tube Hold for add-ons. 02/26/2025 12:01 PM EDT [facility] Comment:Auto resulted. Blood Venous blood specimen / Unknown 02/26/2025 10:30 AM EDT 02/26/2025 10:37 AM EDT us Lucia Flowers MD LAB BLOOD ORDERABLES Final Re sult Performing Organization Address [facility]/ZIP Co de Phone Number [facility] [address] [place] [address], [place] [phone] * (ABNORMAL) CBC auto differential (02/26/2025 5:28 AM EDT) Only the most recent of3 resultswithin the time period is included. [facility] WBC 2.7(L) 4.8 - 10.8 K/[facility] HEMETOLOGY METHOD 02/26/2025 6:41 AM EDT [facility] RBC 4.30(L) 4.50 - 5.50 M/[facility] LAB HEMETOLOGY METHOD 02/26/2025 6:41 AM EDT [facility] Hemoglobin 13.4(L) 13.5 - 17.5 g/dL LAB HEMETOLOGY METHOD 02/26/2025 6:41 AM EDT [facility] Hematocrit 39.8(L) 42.0 - 54.0 % LAB HEMETOLOGY METHOD 02/26/2025 6:41 AM [facility] MCV 91.7 79.0 - 98.0 FL LAB HEMETOLOGY METHOD 02/26/2025 6:41 AM [facility] MCH 30.9 27.0 - 32.0 pcg LAB HEMETOLOGY METHOD 02/26/2025 6:41 AM [facility] MCHC 33.7 32.0 - 37.0 g/dL LAB HEMETOLOGY METHOD 02/26/2025 6:41 AM [facility] RDW 14.1 11.0 - 15.0 % LAB HEMETOLOGY METHOD 02/26/2025 6:41 AM [facility] Platelets 53(L) 130 - 400 K/mcL LAB HEMETOLOGY METHOD 02/26/2025 6:41 AM [facility] Comment:previously verified by slide MPV 12.3(H) 7.0 - 11.0 FL LAB HEMETOLOGY METHOD 02/26/2025 6:41 AM [facility] NRBC 0.0 <1.0 % LAB HEMETOLOGY METHOD 02/26/2025 6:41 AM [facility] NRBC Absolute 0.00 <0.10 K/mcL LAB HEMETOLOGY METHOD 02/26/2025 6:41 AM [facility] Neutrophils Relative 41.2 % LAB HEMETOLOGY METHOD 02/26/2025 6:41 AM [facility] Lymphocytes Relative 47.6 % LAB HEMETOLOGY METHOD 02/26/2025 6:41 AM [facility] Monocytes Relative 8.9 % LAB HEMETOLOGY METHOD 02/26/2025 6:41 AM [facility] Eosinophils Relative 1.5 % LAB HEMETOLOGY METHOD 02/26/2025 6:41 AM [facility] Basophils Relative 0.4 % LAB HEMETOLOGY METHOD 02/26/2025 6:41 AM EDT [facility] Immature Granulocytes Relative 0.4 % LAB HEMETOLOGY METHOD 02/26/2025 6:41 AM EDT [facility] Neutrophils Absolute 1.11(L) 1.50 - 7.00 K/mcL LAB HEMETOLOGY METHOD 02/26/2025 6:41 AM EDT [facility] Lymphocytes Absolute 1.28 1.00 - 5.00 K/mcL LAB HEMETOLOGY METHOD 02/26/2025 6:41 AM EDT [facility] Monocytes Absolute 0.24 0.20 - 1.00 K/mcL LAB HEMETOLOGY METHOD 02/26/2025 6:41 AM EDT [facility] Eosinophils Absolute 0.04 0.00 - 0.50 K/mcL LAB HEMETOLOGY METHOD 02/26/2025 6:41 AM EDT [facility] Basophils Absolute 0.01 0.00 - 0.20 K/mcL LAB HEMETOLOGY METHOD 02/26/2025 6:41 AM EDT [facility] Immature Granulocytes Absolute 0.01 0.00 - 0.03 K/mcL LAB HEMETOLOGY METHOD 02/26/2025 6:41 AM EDT [facility] Blood Venous blood specimen / Unknown Venipuncture / Unknown 02/26/2025 5:28 AM EDT 02/26/2025 6:08 AM EDT us Valerie ROBERTO LAB BLOOD ORDERABLES Tayler l Result [facility] [address] [place] [address], [place] [phone] * [place] Abdomen Limited (02/25/2025 3:06 PM [...] Signed Date: 02/26/2025 12:55 ET Workstation ID: [id number] Transcribed By: Self Edit Transcribed Date: 02/26/2025 [...] Signed Date: 02/26/2025 12:55 ET Workstation ID: [id number] Transcribed By: Self Edit Transcribed Date: 02/26/2025 12:43 ET us Valerie ROBEROT IMG US PROCEDURES Final R esult * (ABNORMAL) Prothrombin time with INR (02/25/2025 6:21 AM EDT) [facility] Protime 14.5(H) 10.6 - 13.9 sec LAB COAGULATION METHOD 02/25/2025 6:50 AM EDT [facility] INR 1.2 LAB COAGULATION METHOD 02/25/2025 6:50 AM EDT [facility] Blood Venous blood specimen / Unknown Venipuncture / Unknown 02/25/2025 6:21 AM EDT 02/25/2025 6:25 AM EDT Mayo Carballo MD LAB BLOOD ORDERABLES Final Result [facility] [address] [place] [address], * Respiratory virus panel molecular study (02/25/2025 1:35 AM EDT) [facility] Adenovirus Detection by PCR Not Detected Not Detected LAB MICROBIOLOGY METHOD 02/25/2025 3:12 AM EDT [facility] Influenza A PCR Not Detected Not Detected LAB MICROBIOLOGY METHOD 02/25/2025 3:12 AM EDT [facility] Influenza B PCR Not Detected Not Detected LAB MICROBIOLOGY METHOD 02/25/2025 3:12 AM EDT [facility] Coronavirus 229E Not Detected Not Detected LAB MICROBIOLOGY METHOD 02/25/2025 3:12 AM EDT [facility] Coronavirus HKU1 Not Detected Not Detected LAB MICROBIOLOGY METHOD 02/25/2025 3:12 AM EDT [facility] Coronavirus OC43 Not Detected Not Detected LAB MICROBIOLOGY METHOD 02/25/2025 3:12 AM EDT [facility] Coronavirus NL63 Not Detected Not Detected LAB MICROBIOLOGY METHOD 02/25/2025 3:12 AM EDT [facility] Parainfluenza Virus 1 Not Detected Not Detected LAB MICROBIOLOGY METHOD 02/25/2025 3:12 AM EDT [facility] Parainfluenza Virus 2 Not Detected Not Detected LAB MICROBIOLOGY METHOD 02/25/2025 3:12 AM EDT [facility] Parainfluenza Virus 3 Not Detected Not Detected LAB MICROBIOLOGY METHOD 02/25/2025 3:12 AM EDT [facility] Parainfluenza Virus 4 Not Detected Not Detected LAB MICROBIOLOGY METHOD 02/25/2025 3:12 AM EDT [facility] RSV PCR Not Detected Not Detected LAB MICROBIOLOGY METHOD 02/25/2025 3:12 AM EDT [facility] Human Metapneumovirus A and B Not Detected Not Detected LAB MICROBIOLOGY METHOD 02/25/2025 3:12 AM EDT [facility] Rhinovirus/Entero virus Not Detected Not Detected LAB MICROBIOLOGY METHOD 02/25/2025 3:12 AM EDT [facility] Bordetella pertussis Not Detected Not Detected LAB MICROBIOLOGY METHOD 02/25/2025 3:12 AM EDT [facility] Bordetella parapertussis Not Detected Not Detected LAB MICROBIOLOGY METHOD 02/25/2025 3:12 AM EDT [facility] Mycoplasma pneumo by PCR Not Detected Not Detected LAB MICROBIOLOGY METHOD 02/25/2025 3:12 AM EDT [facility] Chlamydia pneumoniae Not Detected Not Detected LAB MICROBIOLOGY METHOD 02/25/2025 3:12 AM EDT [facility] SARS COV-2 Not Detected Not Detected LAB MICROBIOLOGY METHOD 02/25/2025 3:12 AM EDT [facility] Swab Both anterior nares / Unknown Non-blood Collection / Unknown 02/25/2025 1:35 AM EDT 02/25/2025 2:16 AM EDT Narrative [facility] - 02/25/2025 3:12 AM EDT Testing was performed using the IPexpert Respiratory Pathogen PCR Assay. All results must [...] that are below the limit of detection. us Kim ROBERTO LAB MICROBIOLOGY - GENERAL HUMA LENZ Final Result [facility] [address] [place] [address], * XR Elbow 3+ Views Right (02/25/2025 1:01 AM EDT) Anatomical Region Laterality Modality Upper Extremities, Elbow Right Radiogr aphic Imaging 02/25/2025 8:10 AM EDT Impressions 02/25/2025 8:12 AM EDT Normal examination of the right elbow. Code 61798 -------- FINAL REPORT -------- Dictated By: Roscoe Willis Dictated Date: 02/25/2025 08:10 ET Assigned Physician: Roscoe Willis Reviewed and Electronically Signed By: Roscoe Willis Signed Date: 02/25/2025 08:12 ET Workstation ID: [id number] Transcribed By: Self Edit Transcribed Date: 02/25/2025 [...] Normal examination of the right elbow. Code 11452 -------- FINAL REPORT -------- Dictated By: Roscoe Willis Dictated Date: 02/25/2025 08:10 ET Assigned Physician: Roscoe Willis Reviewed and Electronically Signed By: Roscoe Willis Signed Date: 02/25/2025 08:12 ET Workstation ID: [id number] Transcribed By: Self Edit Transcribed Date: 02/25/2025 08:10 ET us Mayo Carballo MD IMG XR PROCEDURES Final Res ult * ECG 12 lead (02/24/2025 11:07 PM EDT) Only the most recent of2 resultswithin the time period is included. Ventricular Rate ECG 67 BPM GEMUSE Atrial Rate 67 BPM GEMUSE P-R Interval 160 ms GEMUSE QRS Duration 74 ms GEMUSE Q-T Interval 436 ms GEMUSE QTc 460 ms GEMUSE P Wave [place] 40 degrees GEMUSE R [place] 17 degrees GEMUSE T [place] 11 degrees GEMUSE ECG Interpretation Normal sinus [...] Horan MD on 02/24/2025 23:25:[address] PROCEDURES Final Result * (ABNORMAL) Urinalysis with reflex microscopic and culture (02/24/2025 10:47 PM EDT) Specific [place] Urine 1.012 1.003 - 1.030 LAB URINALYSIS - AUTOMATED METHOD 02/24/2025 11:45 PM [facility] pH, Urine 8.0 5.0 - 8.0 pH LAB URINALYSIS - AUTOMATED METHOD 02/24/2025 11:45 PM [facility] Leukocytes, Urine Small(A) Negative LAB URINALYSIS - AUTOMATED METHOD 02/24/2025 11:45 PM [facility] Nitrite, Urine Negative Negative LAB URINALYSIS - AUTOMATED METHOD 02/24/2025 11:45 PM [facility] Protein, Urine Negative <=Trace mg/dL LAB URINALYSIS - AUTOMATED METHOD 02/24/2025 11:45 PM [facility] Glucose, Urine Negative Negative mg/dL LAB URINALYSIS - AUTOMATED METHOD 02/24/2025 11:45 PM [facility] Ketones, Urine Negative Negative mg/dL LAB URINALYSIS - AUTOMATED METHOD 02/24/2025 11:45 PM EDT [facility] Urobilinogen, Urine 1.0 0.2 - 1.0 mg/dL LAB URINALYSIS - AUTOMATED METHOD 02/24/2025 11:45 PM EDT [facility] Bilirubin, Urine Negative Negative LAB URINALYSIS - AUTOMATED METHOD 02/24/2025 11:45 PM [facility] Blood, Urine Negative Negative LAB URINALYSIS - AUTOMATED METHOD 02/24/2025 11:45 PM [facility] RBC, Urine 1.2 0 - 4 /HPF LAB URINALYSIS - AUTOMATED METHOD 02/24/2025 11:45 PM [facility] WBC, Urine 10.4(H) 0 - 4 /HPF LAB URINALYSIS - AUTOMATED METHOD 02/24/2025 11:45 PM [facility] Squamous Epithelial, Urine 12 0 - 60 /LPF LAB URINALYSIS - AUTOMATED METHOD 02/24/2025 11:45 PM [facility] Bacteria, Urine Negative Negative /HPF LAB URINALYSIS - AUTOMATED METHOD 02/24/2025 11:45 PM [facility] Hyaline Casts, Urine 0.4 0 - 3 /LPF LAB URINALYSIS - AUTOMATED METHOD 02/24/2025 11:45 PM [facility] Urine Urine specimen obtained by clean catch procedure / Unknown Non-blood Collection / Unknown 02/24/2025 10:47 PM EDT 02/24/2025 11:09 PM EDT us Kim ROBERTO LAB URINE ORDERABLES Final Resu lt [facility] [address] [place] [address], * (ABNORMAL) Drug abuse screen 8a panel, urine (02/24/2025 10:47 PM EDT) Amphetamine Screen, Ur Negative Negative LAB CHEMISTRY METHOD 5 11:55 PM EDT [facility] Comment:Certain OTC medicati ons containing ephedrine, phenylephrine, pseudoephedrine and phenylpropanolamine can cause false positive results. Barbiturate Screen, Ur Positive(A ) Negative LAB CHEMISTRY METHOD 5 11:55 PM EDT [facility] Benzodiazepine Screen, Ur Negative Negative LAB CHEMISTRY METHOD 5 11:55 PM EDT [facility] Cocaine Screen, Ur Negative Negative LAB CHEMISTRY METHOD 5 11:55 PM [facility] Opiate Screen, Ur Negative Negative LAB CHEMISTRY METHOD 5 11:55 PM [facility] Cannabinoid (THC) Screen, Ur Negative Negative LAB CHEMISTRY METHOD 5 11:55 PM [facility] Comment:Specimens from patie nts taking pantoprazole sodium (Protonix) have been shown to produce false positive results. Oxycodone Screen, Ur Negative Negative LAB CHEMISTRY METHOD 5 11:55 PM [facility] Fentanyl, Ur Negative Negative LAB CHEMISTRY METHOD 5 11:55 PM [facility] Urine Urine specimen obtained by clean catch procedure / Unknown Non-blood Collection / Unknown 02/24/2025 10:47 PM EDT 02/24/2025 11:09 PM EDT Narrative [facility] - 02/24/2025 11:55 PM EDT Assay cutoffs: Amphetamines 1000 ng/mL Barbiturates 200 ng/mL Benzodiazepines 200 ng/mL Cocaine 300 ng/mL Fentanyl 1 ng/mL Opiates 300 ng/mL Oxycodone 100 ng/mL THC 50 ng/mL Semi-quantitative assay for screening purposes only. Unconfirmed screening result should not be used for non-medical purposes. *ALTERNATE METHOD CONFIRMATION DONE UPON REQUEST ONLY* us Kim ROBERTO LAB URINE ORDERABLES Final Resu lt Performing Organization Address [facility] Co de Phone Number [facility] [address] [place] [address], [place] [phone] * (ABNORMAL) Methadone, urine (02/24/2025 10:47 PM EDT) [facility] Methadone Screen, Urine Positive (A) Negative LAB CHEMISTRY METHOD 02/25/2025 2:29 AM EDT [facility] Comment: Assay cutoff 300 ng/mL Semi-quantitative assay for screening purposes only. Unconfirmed screening result should not be used for non-medical purposes. *ALTERNATE METHOD CONFIRMATION DONE UPON REQUEST ONLY* Urine Urine specimen obtained by clean catch procedure / Unknown Non-blood Collection / Unknown 02/24/2025 10:47 PM EDT 02/24/2025 11:09 PM EDT Mayo Carballo MD LAB URINE ORDERABLES Final Result Performing Organization Address [facility] Co de Phone Number [facility] [address] [place] [address], [place] [phone] * Culture urine (02/24/2025 10:47 PM EDT) [facility] Culture, Urine No growth 02/26/2025 9:12 AM EDT [facility] Urine Urine specimen obtained by clean catch procedure / Unknown Non-blood Collection / Unknown 02/24/2025 10:47 PM EDT 02/24/2025 11:45 PM EDT Kim ROBERTO LAB MICROBIOLOGY - GENERAL ORDE RABLES Final Result Performing Organization Address [facility] Co de Phone Number [facility] [address] [place] [address], [place] [phone] * Troponin I high sensitivity (02/24/2025 10:27 PM EDT) Only the most recent of2 resultswithin the time period is included. [facility] High Sensitivity Troponin I 3 <=79 ng/L LAB CHEMISTRY METHOD 02/24/2025 11:00 PM EDT [facility] Blood Venous blood specimen / Unknown Venipuncture / Unknown 02/24/2025 10:27 PM EDT 02/24/2025 10:32 PM EDT Narrative [facility] - 02/24/2025 11:00 PM EDT High levels of biotin in samples may falsely decrease hsTroponin values. Use caution when interpreting hsTroponin results in patients taking biotin who exhibit renal impairment (eGFR <60) or in patients taking more than 20 mg/day of biotin. us Luigi Tim MD LAB BLOOD ORDERABLES Final Resu lt Performing Organization Address [facility]/ZIP Co de Phone Number [facility] [address] [place] [address], * Lipase (02/24/2025 10:27 PM EDT) [facility] Lipase 67 13 - 75 unit/L LAB CHEMISTRY METHOD 02/24/2025 11:03 PM EDT [facility] Blood Venous blood specimen / Unknown Venipuncture / Unknown 02/24/2025 10:27 PM EDT 02/24/2025 10:32 PM EDT us Luigi Tim MD LAB BLOOD ORDERABLES Final Resu lt [facility] [address] [place] [address], [place] [phone] * (ABNORMAL) Ethanol (02/24/2025 10:27 PM EDT) [facility] Ethanol Level 50(H) 0 - 10 mg/dL LAB CHEMISTRY METHOD 02/24/2025 11:03 PM EDT [facility] Blood Venous blood specimen / Unknown Venipuncture / Unknown 02/24/2025 10:27 PM EDT 02/24/2025 10:32 PM EDT us Kim ROBERTO LAB BLOOD ORDERABLES Final Resu lt [facility] [address] [place] [address], * XR Chest 2 Views (02/24/2025 10:18 PM EDT) Anatomical Region Laterality Modality Body Radiographic Bianca ging 02/25/2025 8:01 AM EDT Impressions 02/25/2025 8:01 AM EDT Limited depth of inspiration. The lungs are clear. Code 47971 -------- FINAL REPORT -------- Dictated By: Roscoe Willis Dictated Date: 02/25/2025 08:01 ET Assigned Physician: Roscoe Willis Reviewed and Electronically Signed By: Roscoe Willis Signed Date: 02/25/2025 08:01 ET Workstation ID: [id number] Transcribed By: Self Edit Transcribed Date: 02/25/2025 [...] of inspiration. The lungs are clear. Code 22160 -------- FINAL REPORT -------- Dictated By: Roscoe Willis Dictated Date: 02/25/2025 08:01 ET Assigned Physician: Roscoe Willis Reviewed and Electronically Signed By: Roscoe Willis Signed Date: 02/25/2025 08:01 ET Workstation ID: [id number] Transcribed By: Self Edit Transcribed Date: 02/25/2025 08:01 ET Luigi Tim MD IMG XR PROCEDURES Final Result * B-type natriuretic peptide (02/24/2025 9:13 PM EDT) BNP 61 <=100 pcg/mL LAB CHEMISTRY METHOD 02/24/2025 9:51 PM EDT [facility] Blood Venous blood specimen / Unknown Venipuncture / Unknown 02/24/2025 9:13 PM EDT 02/24/2025 9:18 PM EDT Luigi Tim MD LAB BLOOD ORDERABLES Final Resu lt [facility] [address] [place] [address], from Last 3 Months Insurance [employer] Advance Directives * Full Code [...] currently active code status orders. Care Teams Channel Opener Relationship Specialty Start Date End Date Kim Lemus MD [address] [place] [address] [place] PCP - General Internal Medicine 05/11/19
== END 2025-04-05 09:53 | disposition home or self-care (01) ==
LOC: HO.US 09:52
PROVIDERS: PCP Internal Medicine; Visit Provider Internal Medicine Gastroenterology
DX: R10.11 Right upper quadrant pain (principal)
CPT/HCPCS: 76705

== ENCOUNTER → 2025-04-05 09:55 | Outpatient (BNV) | payer OTHER, SELFPAY | PROVIDERS: PCP Internal Medicine; Visit Provider Radiology Diagnostic Radiology | DX: K82.8 Other specified diseases of gallbladder (principal) | CPT/HCPCS: 76705 ==

== ENCOUNTER 2025-04-29 20:17 | Inpatient (IN) | payer OTHER, SELFPAY ==
--- NOTE | ~2025-04-29 | CT_ITS ---
CLINICAL HISTORY: fall, head injury CT head without contrast Comparison: None provided Findings: Nonspecific asymmetric left-sided multifocal patchy hypoattenuation throughout the cerebral white matter mild ex vacuo dilatation of the left lateral ventricle along may reflect a component of compensatory changes from parenchymal volume loss. Comparison with priors if available and/or follow-up nonemergent MRI may be helpful. No acute intracranial hemorrhage, territorial infarction, midline shift, or hydrocephalus. There is no sinus or mastoid fluid. The orbits are unremarkable. No skull fracture. IMPRESSION: No acute intracranial abnormality. Additional findings described, please see above. This document has been electronically signed by: Jose Ramon Lugo MD on 04/29/2025 22:43:14
--- NOTE | ~2025-04-29 | CT_ITS ---
CLINICAL HISTORY: diffuse abd pain, very elevated LFTs, hx cirrhosis CT abdomen and pelvis with contrast Comparison: CT - CT ABDOMEN PELVIS W IV CON - 04/30/25 02:50 EDT Findings: No consolidation or effusion. Liver has a nodular contour, likely cirrhotic change. Mild gallbladder wall thickening is present. Pancreas is unremarkable. Spleen is enlarged. Visualized adrenal glands are unremarkable. Mild fat stranding or inflammatory change surrounds thick-walled loops of nondistended proximal small bowel. Mesenteric lymph nodes are minimally prominent. Pelvic contents unremarkable. Normal appendix. The bones are intact. IMPRESSION: 1. Cirrhosis with sequela of portal venous hypertension. 2. Thick-walled loops of proximal small bowel with mild adjacent fat stranding, possibly enteritis. Please correlate clinically. This document has been electronically signed by: Flakito Medrano MD, PHD on 04/30/2025 03:42:21
[2025-04-29 20:40] VITALS: BP 149/83; PULSE 81; RESP 20; TEMP 36.8; O2SAT 96; BMI 36.6
--- NOTE | 2025-04-29 20:40 | ED.GENADULT ---
HPI - General Adult General Chief complaint: General Medical Stated complaint: jaundice / cant keep anything down Time Seen by Provider: 04/30/25 01:01 Source: patient Mode of arrival: ambulatory Limitations: no limitations History of Present Illness ED Provider: Dr. Evi Nunn HPI narrative: Patient comes to the emergency room complaining of fall. Patient states that not quite sure what happened, patient states that he ended up falling 8 steps. Patient believes he tripped and fell. Patient states that he has pain all over but not because of the fall. Patient states that several days ago he was discharged from [facility]. According to the patient he was told that he has severe cirrhosis and patient states that he was told that he has 6 months to live. Patient states that he was still he is not a candidate for liver transplant. Patient reporting that he has been vomiting quite a bit, on a to keep any fluids down. Denies diarrhea. Denies fever chills. Patient denies any new abdominal pain states that he has chronic right upper quadrant pain Related Data Home Medications ?Medication ?Instructions ?Recorded ?Confirmed methadone 10 mg/mL oral concentrate 85 mg PO DAILY 03/03/24 03/28/25 aripiprazole 15 mg tablet 15 mg DAILY 12/13/24 03/28/25 clonidine HCl 0.1 mg tablet 0.1 mg PO BID 12/13/24 03/28/25 gabapentin 800 mg tablet 800 mg PO TID 12/13/24 03/28/25 multivitamin-iron 9 mg-folic acid 1 tab PO DAILY 12/13/24 03/28/25 400 mcg-calcium and minerals tablet (Therapeutic-M) sertraline 100 mg tablet 100 mg PO DAILY 12/13/24 03/28/25 thiamine HCl (vitamin B1) 100 mg 200 mg PO DAILY 12/13/24 03/28/25 tablet folic acid 1 mg tablet 1 mg PO DAILY 02/12/25 03/28/25 magnesium oxide 400 mg (241.3 mg 400 mg PO DAILY 02/12/25 03/28/25 magnesium) tablet melatonin 5 mg tablet 5 mg PO BEDTIME PRN Sleep 02/12/25 03/28/25 mirtazapine 7.5 mg tablet 7.5 mg PO DAILY 02/12/25 03/28/25 tamsulosin 0.4 mg capsule 0.4 mg PO DAILY 02/12/25 03/28/25 lactulose 10 gram/15 mL oral 60 ml PO TID 03/28/25 03/28/25 solution linaclotide 145 mcg capsule 145 mcg PO QAM 03/28/25 03/28/25 (Linzess) quetiapine 150 mg tablet 150 mg PO BEDTIME 03/28/25 03/28/25 Previous Rx's ?Medication ?Instructions ?Recorded rifaximin 550 mg tablet (Xifaxan) 550 mg PO BID #60 tabs 02/15/25 lorazepam 0.5 mg tablet 0.5 mg PO BID #10 tabs 03/28/25 furosemide 40 mg tablet 40 mg PO DAILY 90 days #90 tabs 04/04/25 Allergies Allergy/AdvReac Type Severity Reaction Status Date / Time fish derived (fish) Allergy Anaphylaxis Verified 04/29/25 20:44 shellfish derived Allergy Anaphylaxis Verified 04/29/25 20:44 Review of Systems Review of Systems: Constitutional : No Weight loss, No Fever, No Chills, No Night Sweats, No Fatigue, No Malaise ENT/Mouth : No Hearing loss, No Ear Pain, No Nasal Congestion, No Sinus Pain, No Hoarseness, No sore throat, No Rhinorrhea, No Swallowing Difficulty Eyes: No Eye Pain, No Swelling, No Redness, No Foreign Body, No Discharge, No Vision Changes Cardiovascular : No Chest Pain, No SOB, No Dyspnea on Exertion, No Orthopnea, No Edema, No Palpitations Respiratory : No Cough, No Sputum, No Wheezing, No Smoke Exposure, No Dyspnea Gastrointestinal : Feeling of nausea and vomiting, No Diarrhea, No Constipation, No abdominal Pain, No Hematochezia, No Melena Genitourinary : no irregular bleeding, No Dysuria, No Urinary Frequency, No Hematuria, No Urinary Incontinence, No Urgency, No Flank Pain, No Urinary Flow Changes, No Hesitancy Musculoskeletal : No joint pain, complaining of diffuse Myalgias, No Joint Swelling Skin : Complaining of diffuse yellow skin Neuro : No Weakness, No Numbness, No Paresthesias, No Loss of Consciousness, No Dizziness, No Headache Psych : No Anxiety/Panic, No Depression, No SI/HI/AH/VH, No Social Issues, Heme/Lymph: No Bruising, No Bleeding,No Lymphadenopathy Endocrine : No Polyuria, No Polydipsia, No Temperature Intolerance [facility] Past Medical History Medical History Alcohol use disorder, severe, dependence Methadone maintenance therapy patient Cirrhosis Edema Alcohol abuse Increased ammonia level Cirrhosis Substance abuse Opiate use Social History Social History Household Members: Other Household Members Other:: brother Housing: House Do you presently have visiting nurse or other home services: No Alcohol intake: current Alcohol intake frequency: former alcohol drinker Alcohol type: hard liquor Comment: pt refuses assistance OOB. Encouraged to call for assistance Patient Tobacco Use Status: Current everyday Tobacco user Tobacco use type: Cigarette Cigarette Packs Per Day: 1 Cigarettes Per Day: 20.0 Smoked in Last 30 Days: No e-Cigarette/Vaping Use: Currently Using Use of substances other than those prescribed or required for medical reasons: No Advance Directives: Yes Advance Directives on File: Yes Advance Directives Date on File: 02/18/25 Do you have a plan to hurt others: No Plan service: No Physical Exam ED Exam Exam: Appearance: Alert. Oriented X3, but time seems confused, slow to answer Eyes: Pupils equal, round and reactive to light. Icteric sclera ENT: Pharynx normal. Neck: Normal inspection. Neck supple. No lymph nodes noted. No crepitus CVS: Normal heart rate and rhythm. Pulses normal. Normal S1 and S2 Respiratory: No respiratory distress. Breath sounds normal. No Wheezing. No rales Abdomen: Soft , slightly distended, pain to palpation in the right upper quadrant, no rebound or guarding Skin: Skin warm and dry. Diffuse jaundice Extremities: No lower extremity edema. No Lacerations. No Rash Neuro: Oriented X 3. No motor deficit. No sensory deficit. Moving all extremities. No slurred speech. CN 2 through 12 grossly intact, patient has asterixis Psych: calm, cooperative, normal affect Vital Signs: Vital Signs - 24 hr 04/29/25 20:40 04/30/25 01:07 Temperature 98.2 F 98.0 F Pulse Rate 81 78 Respiratory Rate 20 18 Blood Pressure 149/83 H 144/87 H Pulse Oximetry 96 97 Oxygen Delivery Method Room Air Room Air BMI result Body Mass Index 36.6 Course Course Course Narrative: This is an RME performed by Musa Paez CNP: Additional HPI, ROS, PE not included below will be deferred to primary provider. Patient is a 34-year-old male with past medical history of opiate use disorder on methadone, alcohol use disorder, cirrhosis who presents emergency department for evaluation, he was admitted recently to [facility] 11 days ago, was jaundice then they told me I have 6 months to live , but my GI doctor is here. Had a fall down 8 stairs today, with headstrike, endorsing a headache, denies LOC. Reports not able to tolerate eating, anything he drinks he trows up since yesterday this morning, ABd pain associated with this. Plan: Serum labs, head CT Medications Administered Discontinued Medications Generic Name Dose Route Start Last Admin Trade Name Freq PRN Reason Stop Dose Admin Sodium Chloride 1,000 mls @ 999 mls/hr 04/30/25 01:12 04/30/25 02:01 Ns IVCONT 04/30/25 02:12 999 mls/hr .Q1H1M ONE Administration Iohexol 85 ml 04/30/25 02:58 04/30/25 02:59 Iohexol 350 Mg/Ml 100 Ml Infus..Btl IV 04/30/25 02:59 85 ml ONCE ONE Administration Lactulose 30 gm 04/30/25 01:12 04/30/25 02:10 Lactulose 20 Gm/30 Ml Solution PO 04/30/25 01:13 Not Given ONCE ONE Morphine Sulfate 4 mg 04/30/25 01:12 04/30/25 02:01 Morphine Sulfate 4 Mg/Ml Cartridge IVPUSH 04/30/25 01:13 4 mg ONCE ONE Administration Protocol Ondansetron HCl 4 mg 04/30/25 01:12 04/30/25 02:01 Ondansetron Hcl 4 Mg/2 Ml Vial IVPUSH 04/30/25 01:13 4 mg ONCE ONE Administration Medical Decision Making Medical Decision Making MDM Narrative: Regarding the fall, patient's head CT within normal limits. However, patient's lab work looks much worse than a month ago. In March, patient's T bilirubin was 4.9, 2 days 27.6. The direct bilirubin from February, a bit over 2 months ago was 2.4, today is 19.0. AST ALT and alk-phos remain elevated. I requested records from [facility], patient states that he was seen a few days ago. Patient states that he was asked to sign hospice papers. However, patient states that he declined to sign. Patient receiving IV fluids, Zofran, morphine. Patient states that he was told that he needs a liver transplant but does not qualify for a transplant due to his recent history of alcohol drinking I received the requested records from [facility]. Patient was admitted from April 14 to April 25. Patient was treated for abdominal pain, hepatic encephalopathy, decompensated cirrhosis, alcohol hepatitis, and alcohol withdrawal. From the [facility] records, there is no mentioned about hospice and also patient was discharged because the patient requested to leave. -On April 24, patient is direct bilirubin was 13.5, total bilirubin 18.6 Patient declined taking p.o. lactulose. Patient requesting more pain medications. I discussed the patient with Dr. Peres, patient being admitted. Differential Diagnosis Differential Diagnoses: The differential diagnosis associated with the presentation includes (Fulminant liver failure, cirrhosis, portal hypertension, choledocholithiasis) Admission/Observation Consideration of admission/observation: Escalation of care including admission/observation considered Consult Healthcare Provider Management of the patient was discussed with: Hospitalist Lab Data MDM Lab Attestation statement: I reviewed the patient's lab results. 04/29/25 21:16 04/29/25 21:16 Labs: Lab Results 04/29/25 04/29/25 04/30/25 Range/Units 21:16 21:17 02:32 WBC 6.8 (4.8-10.8) X10*3/uL RBC 3.91 L (4.60-5.80) X10*6/uL Hgb 12.7 L (14.0-18.0) g/dl Hct 36.5 L (42.0-52.0) % MCV 93.4 (80.0-98.0) fL MCH 32.5 (27.0-33.0) pg MCHC 34.8 (31.0-36.0) g/dl RDW 20.4 H (11.0-16.0) % Plt Count 65 L (160-400) X10*3/uL MPV 10.2 (9.4-12.4) fL Immature Gran % (Auto) 0.9 H (0.0-0.4) % Neut % (Auto) 79.7 H (45-73) % Lymph % (Auto) 12.1 L (20-40) % [place] % (Auto) 7.1 (2-11) % Eos % (Auto) 0.1 (0-4) % Baso % (Auto) 0.1 (0-2) % Lymph # (Auto) 0.8 L (1.2-4.9) X10*3/uL [place] # (Auto) 0.5 (0.1-1.2) X10*3/uL Eos # (Auto) 0.0 (0.0-0.4) X10*3/uL Baso # (Auto) 0.0 (0.0-0.2) X10*3/uL Abs Immat Gran (auto) 0.06 H (0.00-0.03) X10*3/uL Absolute Neuts (auto) 5.4 (2.0-8.3) x10*3/uL Absolute Nucleated RBC 0.000 (0.0-0.012) X10*3/uL Nucleated RBC % (auto) 0.0 (0.0-0.2) /100WBC Smear Tech's Comments VERIFIED PT 24.1 H D (10.9-12.4) SEC INR 2.1 H (0.9-1.1) Sodium 138 (135-145) mmol/L Potassium 4.4 (3.3-5.1) mmol/L Chloride 107 (96-108) mmol/L Carbon Dioxide 27 (22-29) mmol/L Anion Gap 8 L (12-20) BUN 8 L (9-16) mg/dL Creatinine 0.41 L (0.5-1.4) mg/dL Estim Creat Clear Calc 278.4 Estimated GFR > 60 Random Glucose 100 (60-115) mg/dL Calcium 8.4 (8.4-10.2) mg/dL Total Bilirubin 27.6 H (0.0-1.0) mg/dL Direct Bilirubin 19.0 H (0.0-0.5) mg/dL AST 261 H (5-37) U/L ALT 126 H (0-40) U/L Alkaline Phosphatase 226 H (39-117) U/L Ammonia 91 H (13-55) umol/L Total Protein 6.8 (6.5-8.0) g/dL Albumin 2.7 L (3.5-5.0) g/dL Lipase 37 (8-78) U/L Urine Opiates Screen (Not Detect) Ur Buprenorphine Scrn (Not Detect) ng/mL Ur Oxycodone Screen (Not Detect) ng/mL Urine Methadone Screen (Not Detect) ng/mL Urine Fentanyl Screen (Not Detect) Ur Barbiturates Screen (Not Detect) Ur Phencyclidine Scrn (Not Detect) Ur Amphetamines Screen (Not Detect) U Benzodiazepines Scrn (Not Detect) Urine Cocaine Screen (Not Detect) U Marijuana (THC) Screen (Not Detect) Ethyl Alcohol < 10 mg/dL Influenza Type A (PCR) NEGATIVE (Negative) Influenza Type B (PCR) NEGATIVE (Negative) RSV RNA Qual (PCR) NEGATIVE (Negative) SARS-CoV-2 RNA (RT-PCR) NEGATIVE (Negative) 04/30/25 Range/Units 03:17 WBC (4.8-10.8) X10*3/uL RBC (4.60-5.80) X10*6/uL Hgb (14.0-18.0) g/dl Hct (42.0-52.0) % MCV (80.0-98.0) fL MCH (27.0-33.0) pg MCHC (31.0-36.0) g/dl RDW (11.0-16.0) % Plt Count (160-400) X10*3/uL MPV (9.4-12.4) fL Immature Gran % (Auto) (0.0-0.4) % Neut % (Auto) (45-73) % Lymph % (Auto) (20-40) % [place] % (Auto) (2-11) % Eos % (Auto) (0-4) % Baso % (Auto) (0-2) % Lymph # (Auto) (1.2-4.9) X10*3/uL [place] # (Auto) (0.1-1.2) X10*3/uL Eos # (Auto) (0.0-0.4) X10*3/uL Baso # (Auto) (0.0-0.2) X10*3/uL Abs Immat Gran (auto) (0.00-0.03) X10*3/uL Absolute Neuts (auto) (2.0-8.3) x10*3/uL Absolute Nucleated RBC (0.0-0.012) X10*3/uL Nucleated RBC % (auto) (0.0-0.2) /100WBC Smear Tech's Comments PT (10.9-12.4) SEC INR (0.9-1.1) Sodium (135-145) mmol/L Potassium (3.3-5.1) mmol/L Chloride (96-108) mmol/L Carbon Dioxide (22-29) mmol/L Anion Gap (12-20) BUN (9-16) mg/dL Creatinine (0.5-1.4) mg/dL Estim Creat Clear Calc Estimated GFR Random Glucose (60-115) mg/dL Calcium (8.4-10.2) mg/dL Total Bilirubin (0.0-1.0) mg/dL Direct Bilirubin (0.0-0.5) mg/dL AST (5-37) U/L ALT (0-40) U/L Alkaline Phosphatase (39-117) U/L Ammonia (13-55) umol/L Total Protein (6.5-8.0) g/dL Albumin (3.5-5.0) g/dL Lipase (8-78) U/L Urine Opiates Screen POSITIVE H (Not Detect) Ur Buprenorphine Scrn Not Detected (Not Detect) ng/mL Ur Oxycodone Screen Not Detected (Not Detect) ng/mL Urine Methadone Screen Positive H (Not Detect) ng/mL Urine Fentanyl Screen Not Detected (Not Detect) Ur Barbiturates Screen Not Detected (Not Detect) Ur Phencyclidine Scrn Not Detected (Not Detect) Ur Amphetamines Screen Not Detected (Not Detect) U Benzodiazepines Scrn POSITIVE H (Not Detect) Urine Cocaine Screen Not Detected (Not Detect) U Marijuana (THC) Screen Not Detected (Not Detect) Ethyl Alcohol mg/dL Influenza Type A (PCR) (Negative) Influenza Type B (PCR) (Negative) RSV RNA Qual (PCR) (Negative) SARS-CoV-2 RNA (RT-PCR) (Negative) Independent Interpretation I performed an independent interpretation of an: CT Scan Radiology Impression Discussion of test interpretation with radiology: I have reviewed the radiologist's reading. Radiologist Impression: No consolidation or effusion. Liver has a nodular contour, likely cirrhotic change. Mild gallbladder wall thickening is present. Pancreas is unremarkable. Spleen is enlarged. Visualized adrenal glands are unremarkable. Mild fat stranding or inflammatory change surrounds thick-walled loops of nondistended proximal small bowel. Mesenteric lymph nodes are minimally prominent. Pelvic contents unremarkable. Normal appendix. The bones are intact. IMPRESSION: 1. Cirrhosis with sequela of portal venous hypertension. 2. Thick-walled loops of proximal small bowel with mild adjacent fat stranding, possibly enteritis. Please correlate clinically. Discharge Plan Discharge Clinical Impression: Alcoholic cirrhosis of liver with ascites, Liver failure Patient Disposition: Home, Self-Care Instructions: Chronic Liver Disease (ED) Prescriptions: No Action furosemide 40 mg tablet 40 mg PO DAILY 90 Days Qty: 90 1RF methadone 10 mg/mL Concentrate 85 mg PO DAILY Rx Instructions: MAU DUNCAN [phone] clonidine HCl 0.1 mg tablet 0.1 mg PO BID sertraline 100 mg tablet 100 mg PO DAILY thiamine HCl (vitamin B1) 100 mg tablet 200 mg PO DAILY gabapentin 800 mg tablet 800 mg PO TID aripiprazole 15 mg tablet 15 mg DAILY Therapeutic-M 9 mg iron-400 mcg tablet 1 tab PO DAILY magnesium oxide 400 mg (241.3 mg magnesium) tablet 400 mg PO DAILY tamsulosin 0.4 mg capsule 0.4 mg PO DAILY folic acid 1 mg tablet 1 mg PO DAILY mirtazapine 7.5 mg tablet 7.5 mg PO DAILY melatonin 5 mg Tablet 5 mg PO BEDTIME PRN (Reason: Sleep) Xifaxan 550 mg Tablet 550 mg PO BID Qty: 60 0RF lactulose 10 gram/15 mL solution 60 ml PO TID Linzess 145 mcg capsule 145 mcg PO QAM quetiapine 150 mg tablet 150 mg PO BEDTIME lorazepam 0.5 mg tablet 0.5 mg PO BID Qty: 10 0RF Print Language: Barb[place]
[2025-04-29 21:25] LABS: Hemoglobin 12.7 g/dl (14.0-18.0); Lymphocytes Absolute Auto 0.8 X10*3/uL (1.2-4.9); NRBC Abs Auto 0.000 X10*3/uL (0.0-0.012); NRBC Pct Auto 0.0 /100WBC (0.0-0.2); PLT CLUMP 1; SCAN SMEAR FLAG 1
[2025-04-29 21:27] LABS: Hematocrit 36.5 % (42.0-52.0); Imm Gran Abs Auto 0.06 X10*3/uL (0.00-0.03); Imm Gran Pct Auto 0.9 % (0.0-0.4); MANUAL DIFF FLAG SCAN; Mean Corpuscular HGB Conc 34.8 g/dl (31.0-36.0); Mean Corpuscular Hemoglobin 32.5 pg (27.0-33.0); Mean Corpuscular Volume 93.4 fL (80.0-98.0); Red Blood Count 3.91 X10*6/uL (4.60-5.80)
[2025-04-29 21:49] LABS: Alanine Aminotransferase 126 U/L (0-40); Albumin Level 2.7 g/dL (3.5-5.0); Alkaline Phosphatase 226 U/L (39-117); Anion Gap 8 (12-20); Aspartate Amino Transferase 261 U/L (5-37); Blood Urea Nitrogen 8 mg/dL (9-16); Calcium 8.4 mg/dL (8.4-10.2); Carbon Dioxide 27 mmol/L (22-29); Chloride 107 mmol/L (96-108); Creatinine Clr Calc Pharmacy 278.4; Estimated Glomerular Filt Rate > 60; Lipase 37 U/L (8-78); Potassium 4.4 mmol/L (3.3-5.1); Sodium 138 mmol/L (135-145); Total Protein 6.8 g/dL (6.5-8.0)
[2025-04-29 22:04] LABS: Resp Syncy Virus RNA Qual PCR NEGATIVE (Negative); SARS COV2 PCR INHOUSE NEGATIVE (Negative)
[2025-04-29 22:06] LABS: Platelet Count 65 X10*3/uL (160-400); White Blood Count 6.8 X10*3/uL (4.8-10.8)
[2025-04-29 22:18] LABS: Ammonia 91 umol/L (13-55)
--- OUTSIDE RECORDS SUMMARY | 2025-04-29 23:34 | XMS_ITS | Clinical Summary ---
Author Organization [facility] Address [address] [place] [address] Care Team Providers Care Personnel Arbitrator Name Role Phone Emelia Ahn ELECTRICAL TEST TECHNICIAN Primary Care Provider [phone] Source Comments PLEASE NOTE, if this patient [...] 12/03/2015 Overview (12/03/2015): Dx as noted in [place] records; Reportedly followed [facility] 10/23/08. H/O: substance abuse ([facility] [address] [facility]) 11/27/2015 Overview (11/27/2015): Alcohol, Heroin, Xanax and Ativan from streets. Received records from [facility] in [place] where he was admitted for detox 07/2015: Court ordered treatment, had felony charges for drugs. Reportedly he used suboxone in the past but was selling mostly?. He was treated in detox with protocol( also including Hydroxyzine, clonidine, keppra prophylaxis, Remeron, Trazodone prn, Subutex) Depression with anxiety 11/08/2015 Overview (12/03/2015): Inconsistent History. Says that he is now Following with at [facility], [facility]. 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 Per [facility] records prior to 2012, he was on Buspar, Trazodone, Effexor, Clonidine, Ativan. Smoking 11/08/2015 Immunizations Immunization Administration Dates Next Due DTAP (DAPTACEL),5 PERTUSSIS ANTIGENS ,08/05/1992,1991,08/21 HEP B, PED/ADOL (LBTFYNV-L-LKEQ/RECOMBIVAX-PEDS) 06/11/2004,04/16/2003 Hib (PRP-OMP) (PedvaxHIB) 1991,1991 History Of Varicella 06/09/1993 IPV (IPOL) 12/05/1996, 6,1991,08/21 MENINGOCOCCAL MPSV4 06/01/2007 MMR (MMR II/Priorix) 12/05/1996,05/23/1996 TDAP 06/01/2007 Td (adult),2 Lf tetanus toxo id (TDVAX), preservative free 04/16/2003 Family History Relation Name Status [...] 80 11/08/2015 2:01 PM EST Temperature 36.9 C (98.4 F) 11/08/2015 2:01 PM EST Respiratory Rate 14 11/08/2015 2:01 PM EST Oxygen Saturation - - Inhaled Oxygen Concentration - - Weight 68.5 kg (151 lb 1.6 oz) 11/08/2015 2:01 P M EST Height 160 cm (5' 3 ) 11/08/2015 2:01 PM EST Body Mass Index 26.77 11/08/2015 2:01 PM EST Plan of Treatment Not on file Insurance [facility] Member Subscriber Plan / Payer (Ef fective 2015-Present) Name:LUCIA RUSSELL Relation to Subscriber:Self Name:Lucia Russell Payer ID:[id number] (NAIC) Type:Indemnity Address: [facility] [id number] [address] MEDICAID DENTAL [facility] [employer] DENTAL Care Teams Personnel Arbitrator Relationship Specialty Start Date End Date Emelia Ahn FNP [address] [place] [address] PCP - General 12/05/18
--- OUTSIDE RECORDS SUMMARY | 2025-04-29 23:34 | XMS_ITS | Clinical Summary ---
Author Organization [facility] Address [address] [place] [address] Phone Care Team Providers Care Pattern Developer Name Role Phone Kim Lemus MD Primary Care Provider Allergies Active Allergy Reactions Criticality Noted Date [...] by mouth 1 (one) time each day. 4 Active methadone (DOLOPHINE) 5 mg tablet Take 17 tablets (85 mg total) by mouth 1 (one) time each day. Active multivitamin minerals-iron (Therapeutic-M) 9 mg iron-400 mcg tablet Take 1 tablet by mouth 1 (one) time each day. 30 tablet 5 Active folic acid (FOLVITE) 1 mg tablet [...] each day for 14 days. 14 each 5 Active LORazepam (ATIVAN) 0.5 mg tablet Take 1 tablet (0.5 mg total) by mouth 1 (one) time each day if needed for anxiety for up to 6 days. Max Daily Amount: 0.5 mg 6 tablet 5 Active naloxone (NARCAN) 4 mg/0.1 mL nasal sprayIndications :opioid overdose,opioid- induced respiratory depression Administer 1 each (4 mg total) into affected nostril(s) if needed for opioid reversal or respiratory depression. Give 4 mg (1 spray) into one nostril. May repeat every 2-3 minutes if needed, alternating nostrils, until medical assistance becomes available. 2 each 5 Active Active Problems Problem Noted Date Diagnosed Date Acute hepatic encephalopathy (CMS/HCC V24, CMS/H CC V28) 02/25/2025 Hepatic encephalopathy (CMS/HCC V24, CMS/HCC V28 ) 12/21/2024 Right upper quadrant abdominal pain 12/21/2024 Encounters Date Type Department Care Team Description 02/24/2025 8:56 PM EDT - 02/27/2025 1:30 PM EDT Hospital Encounter [facility] [address] [place] [address] [phone] Mayo Carballo MD Zipagan, James T, MD ETOH abuse (Primary Dx); Hepatic encephalopathy (CMS/HCC V24, CMS/HCC V28); Acute hepatic encephalopathy ([facility]24, [facility] V28) Discharge Disposition: Home or Self Care from Last 3 Months Surgical History Surgery Date Site/Laterality Comments WISDOM TOOTH EXTRACTION PROCEDURE: HISTORICAL WISDOM TEETH EXTRACTION Medical History Medical History Date Comments Pneumonia DX:Pneumonia; CO MMENT: 2006 Cirrhosis ([facility] V24, [facility] V28) Pancreatitis Seizures ([facility] V24, [facility] V28) Viral hepatitis C Alcohol use disorder, severe , dependence ([facility] V24, [facility] V28) Severe benzodiazepine use di sorder ([facility] V24, [facility] V28) Opioid dependence on agonist therapy ([facility] V2, [facility] V2) Depression Anxiety Family History Medical History Relation [...] for your loved ones. For example, child welfare director or elderly care for an older adult? [...] 5 Years) and At-Risk Patients (6 to 49 Years) (1 of 2 - PCV) 2010 DTaP,Tdap,and Td Vaccines (7 - Td or Tdap) 06/01/2017 06/01/2007, 04/16/2003, 06/03/1996, Additional history exists Cholesterol Screening (Lipid Panel) 09/08/2022 HIV Screening 09/08/2022 COVID-19 Vaccine ( - season) 2024 03/11/2021 Depression Screening 10/10/2024 Influenza Vaccine (#1) 2025 , 06/24/2020, 07/10/2019, Additional history exists Social Influencers [...] Hold for add-ons. 02/27/2025 8:01 AM EDT [facility] Comment:Auto resulted. Blood Venous blood specimen / Unknown Venipuncture / Unknown 02/27/2025 6:03 AM EDT 02/27/2025 6:58 AM EDT Lucia Flowers MD LAB BLOOD ORDERABLES Final Re sult Performing Organization Address [facility]/ZIP Co de Phone Number [facility] [address] [place] [address], [place] [phone] * Phosphorus (02/27/2025 6:03 AM EDT) Only the most recent of2 resultswithin the time period is included. Phosphorus 3.3 2.5 - 4.5 mg/dL LAB CHEMISTRY METHOD 02/27/2025 7:38 AM EDT [facility] Blood Venous blood specimen / Unknown Venipuncture / Unknown 02/27/2025 6:03 AM EDT 02/27/2025 6:56 AM EDT Valerie ROBERTO LAB BLOOD ORDERABLES Tayler l Result Performing Organization Address [facility] de Phone Number [facility] [address] [place] [address], [place] [phone] * (ABNORMAL) Magnesium (02/27/2025 6:03 AM EDT) Only the most recent of4 resultswithin the time period is included. Magnesium 1.5(L) 1.9 - 2.6 mg/dL LAB CHEMISTRY METHOD 02/27/2025 7:38 AM EDT [facility] Blood Venous blood specimen / Unknown Venipuncture / Unknown 02/27/2025 6:03 AM EDT 02/27/2025 6:56 AM EDT Valerie ROBERTO LAB BLOOD ORDERABLES Tayler l Result Performing Organization Address City/[facility]/ZIP Co de Phone Number [facility] [address] [place] [address], * (ABNORMAL) Comprehensive metabolic panel (02/27/2025 6:03 AM EDT) Only the most recent of4 resultswithin the time period is included. Sodium 133 133 - 145 mmol/L LAB CHEMISTRY METHOD 02/27/2025 7:38 AM [facility] Potassium 4.0 3.5 - 5.5 mmol/L LAB CHEMISTRY METHOD 02/27/2025 7:38 AM [facility] Chloride 99 96 - 110 mmol/L LAB CHEMISTRY METHOD 02/27/2025 7:38 AM [facility] CO2 29 21 - 32 mmol/L LAB CHEMISTRY METHOD 02/27/2025 7:38 AM [facility] Anion Gap 5 3 - 11 LAB CHEMISTRY METHOD 02/27/2025 7:38 AM [facility] Glucose 107(H) 70 - 100 mg/dL LAB CHEMISTRY METHOD 02/27/2025 7:38 AM [facility] BUN 8 5 - 25 mg/dL LAB CHEMISTRY METHOD 02/27/2025 7:38 AM [facility] Creatinine 0.76 0.70 - 1.30 mg/dL LAB CHEMISTRY METHOD 02/27/2025 7:38 AM [facility] eGFR 122 >=60 mL/min/1. 73m2 LAB CHEMISTRY METHOD 02/27/2025 7:38 AM [facility] Comment:Calculation based on the Chronic Kidney Disease Epidemiology Collaboration (CKD-EPI) equation refit without adjustment for race. BUN/Creatinine Ratio 10.5 LAB CHEMISTRY METHOD 02/27/2025 7:38 AM [facility] Calcium 8.2(L) 8.5 - 10.5 mg/dL LAB CHEMISTRY METHOD 02/27/2025 7:38 AM [facility] AST (SGOT) 142(H) 10 - 42 unit/L LAB CHEMISTRY METHOD 02/27/2025 7:38 AM EDT [facility] ALT (SGPT) 102(H) 10 - 60 unit/L LAB CHEMISTRY METHOD 02/27/2025 7:38 AM EDT [facility] Alkaline Phosphatase 239(H) 42 - 121 unit/L LAB CHEMISTRY METHOD 02/27/2025 7:38 AM EDT [facility] Total Protein 6.9 6.0 - 8.0 g/dL LAB CHEMISTRY METHOD 02/27/2025 7:38 AM EDT [facility] Albumin 2.7(L) 3.2 - 5.0 g/dL LAB CHEMISTRY METHOD 02/27/2025 7:38 AM EDT [facility] Total Bilirubin 2.5(H) 0.0 - 1.4 mg/dL LAB CHEMISTRY METHOD 02/27/2025 7:38 AM T [facility] Blood Venous blood specimen / Unknown Venipuncture / Unknown 02/27/2025 6:03 AM EDT 02/27/2025 6:56 AM EDT Valerie ROBERTO LAB BLOOD ORDERABLES Tayler l Result [facility] [address] [place] [address], * (ABNORMAL) Ammonia (02/27/2025 6:02 AM EDT) Only the most recent of3 resultswithin the time period is included. Ammonia 103(H) 11 - 35 mcmol/L LAB CHEMISTRY METHOD 02/27/2025 7:29 AM EDT [facility] Blood Venous blood specimen / Unknown Venipuncture / Unknown 02/27/2025 6:02 AM EDT 02/27/2025 6:57 AM EDT Valerie ROBERTO LAB BLOOD ORDERABLES Tayler l Result [facility] [address] [place] [address], [place] [phone] * (ABNORMAL) Urinalysis with reflex microscopic (02/26/2025 1:53 PM EDT) Pathologist [facility] Specific [place] Urine 1.015 1.003 - 1.030 LAB URINALYSIS - AUTOMATED METHOD 02/26/2025 3:32 PM EDT [facility] pH, Urine 7.0 5.0 - 8.0 pH LAB URINALYSIS - AUTOMATED METHOD 02/26/2025 3:32 PM EDT [facility] Leukocytes, Urine Negative Negative LAB URINALYSIS - AUTOMATED METHOD 02/26/2025 3:32 PM [facility] Nitrite, Urine Negative Negative LAB URINALYSIS - AUTOMATED METHOD 02/26/2025 3:32 PM [facility] Protein, Urine Negative <=Trace mg/dL LAB URINALYSIS - AUTOMATED METHOD 02/26/2025 3:32 PM [facility] Glucose, Urine Negative Negative mg/dL LAB URINALYSIS - AUTOMATED METHOD 02/26/2025 3:32 PM [facility] Ketones, Urine Negative Negative mg/dL LAB URINALYSIS - AUTOMATED METHOD 02/26/2025 3:32 PM T [facility] Urobilinogen, Urine 2.0(A) 0.2 - 1.0 mg/dL LAB URINALYSIS - AUTOMATED METHOD 02/26/2025 3:32 PM [facility] Bilirubin, Urine Negative Negative LAB URINALYSIS - AUTOMATED METHOD 02/26/2025 3:32 PM [facility] Blood, Urine Negative Negative LAB URINALYSIS - AUTOMATED METHOD 02/26/2025 3:32 PM EDT [facility] RBC, Urine 2.1 0 - 4 /HPF LAB URINALYSIS - AUTOMATED METHOD 02/26/2025 3:32 PM EDT [facility] WBC, Urine 0.4 0 - 4 /HPF LAB URINALYSIS - AUTOMATED METHOD 02/26/2025 3:32 PM EDT [facility] Squamous Epithelial, Urine 2 0 - 60 /LPF LAB URINALYSIS - AUTOMATED METHOD 02/26/2025 3:32 PM EDT [facility] Bacteria, Urine Negative Negative /HPF LAB URINALYSIS - AUTOMATED METHOD 02/26/2025 3:32 PM EDT [facility] Hyaline Casts, Urine 0.0 0 - 3 /LPF LAB URINALYSIS - AUTOMATED METHOD 02/26/2025 3:32 PM EDT [facility] Urine Urine specimen obtained by clean catch procedure / Unknown Non-blood Collection / Unknown 02/26/2025 1:53 PM EDT 02/26/2025 2:41 PM EDT Valerie ROBERTO LAB URINE ORDERABLES Tayler gonzalez Result Performing Organization Address City/[facility]/ZIP Co de Phone Number [facility] [address] [place] [address], [place] [phone] * Vargas urine culture tube (02/26/2025 1:53 PM EDT) Only the most recent of2 resultswithin the time period is included. Extra Tube Hold for add-ons. 02/26/2025 4:01 PM EDT [facility] Comment:Auto resulted. Urine Urine specimen obtained by clean catch procedure / Unknown 02/26/2025 1:53 PM EDT 02/26/2025 2:41 PM EDT Lucia Flowers MD LAB URINE ORDERABLES Final Re sult [facility] [address] [place] [address], [place] [phone] * SST tube (02/26/2025 10:30 AM EDT) [facility] [address] Extra Tube Hold for add-ons. 02/26/2025 12:01 PM EDT [facility] Comment:Auto resulted. Blood Venous blood specimen / Unknown 02/26/2025 10:30 AM EDT 02/26/2025 10:37 AM EDT us Lucia Flowers MD LAB BLOOD ORDERABLES Final Re sult [facility] [address] [place] [address], [place] [phone] * (ABNORMAL) CBC auto differential (02/26/2025 5:28 AM EDT) Only the most recent of3 resultswithin the time period is included. [facility] [address] WBC 2.7(L) 4.8 - 10.8 K/mcL LAB HEMETOLOGY METHOD 02/26/2025 6:41 AM EDT [facility] RBC 4.30(L) 4.50 - 5.50 M/mcL LAB HEMETOLOGY METHOD 02/26[facility]2025 6[facility] Hemoglobin 13.4(L) 13.5 - 17.5 g/dL LAB HEMETOLOGY METHOD 02/26/2025 6:41 AM EDT [facility] Hematocrit 39.8(L) 42.0 - 54.0 % LAB HEMETOLOGY METHOD 02/26/2025 6:41 AM EDT [facility] MCV 91.7 79.0 - 98.0 FL LAB HEMETOLOGY METHOD 02/26/2025 6:[facility] MCH 30.9 27.0 - 32.0 pcg LAB HEMETOLOGY METHOD 02/26/2025 6:41 AM [facility] MCHC 33.7 32.0 - 37.0 g/dL LAB HEMETOLOGY METHOD 02/26/2025 6:41 AM [facility] RDW 14.1 11.0 - 15.0 % LAB HEMETOLOGY METHOD 02/26/2025 6:41 AM [facility] Platelets 53(L) 130 - 400 K/mcL LAB HEMETOLOGY METHOD 02/26/2025 6:41 AM [facility] Comment:previously verified by slide MPV 12.3(H) 7.0 - 11.0 FL LAB HEMETOLOGY METHOD 02/26/2025 6:41 AM [facility] NRBC 0.0 <1.0 % LAB HEMETOLOGY METHOD 02/26/2025 6:41 AM [facility] NRBC Absolute 0.00 <0.10 K/mcL LAB HEMETOLOGY METHOD 02/26/2025 6:41 AM [facility] Neutrophils Relative 41.2 % LAB HEMETOLOGY METHOD 02/26/2025 6:41 AM [facility] Lymphocytes Relative 47.6 % LAB HEMETOLOGY METHOD 02/26/2025 6:41 AM [facility] Monocytes Relative 8.9 % LAB HEMETOLOGY METHOD 02/26/2025 6:41 AM [facility] Eosinophils Relative 1.5 % LAB HEMETOLOGY METHOD 02/26/2025 6:41 AM [facility] Basophils Relative 0.4 % LAB HEMETOLOGY METHOD 02/26/2025 6:41 AM [facility] Immature Granulocytes Relative 0.4 % LAB HEMETOLOGY METHOD 02/26/2025 6:41 AM [facility] Neutrophils Absolute 1.11(L) 1.50 - 7.00 K/mcL LAB HEMETOLOGY METHOD 02/26/2025 6:41 AM EDT [facility] Lymphocytes Absolute 1.28 1.00 - 5.00 K/mcL LAB HEMETOLOGY METHOD 02/26/2025 6:41 AM EDT [facility] Monocytes Absolute 0.24 0.20 - 1.00 K/mcL LAB HEMETOLOGY METHOD 02/26/2025 6:41 AM EDT [facility] Eosinophils Absolute 0.04 0.00 - 0.50 K/[facility] LAB HEMETOLOGY METHOD 02/26/2025 6:41 AM EDT [facility] Basophils Absolute 0.01 0.00 - 0.20 K/mcL LAB HEMETOLOGY METHOD 02/26/2025 6:41 AM EDT [facility] Immature Granulocytes Absolute 0.01 0.00 - 0.03 K/[facility] LAB HEMETOLOGY METHOD 02/26/2025 6:41 AM EDT [facility] Blood Venous blood specimen / Unknown Venipuncture / Unknown 02/26/2025 5:28 AM EDT 02/26/2025 6:08 AM EDT Valerie Mon HI LAB BLOOD ORDERABLES Tayler l Result [facility] [address] [place] [address], [place] [phone] * [place] Abdomen Limited (02/25/2025 3:06 PM [...] Signed Date: 02/26/2025 12:55 ET Workstation ID: [id number] Transcribed By: Self Edit Transcribed Date: 02/26/2025 [...] Signed Date: 02/26/2025 12:55 ET Workstation ID: [id number] Transcribed By: Self Edit Transcribed Date: 02/26/2025 12:43 ET Valerie ROBERTO IMG US PROCEDURES Final R esult * (ABNORMAL) Prothrombin time with INR (02/25/2025 6:21 AM EDT) [facility] [address] Protime 14.5(H) 10.6 - 13.9 sec LAB COAGULATION METHOD 02/25/2025 6:50 AM EDT [facility] INR 1.2 LAB COAGULATION METHOD 02/25/2025 6:50 AM EDT [facility] Blood Venous blood specimen / Unknown Venipuncture / Unknown 02/25/2025 6:21 AM EDT 02/25/2025 6:25 AM EDT Mayo Carballo MD LAB BLOOD ORDERABLES Final Result [facility] [address] [place] [address], * Respiratory virus panel molecular study (02/25/2025 1:35 AM EDT) [facility] [address] [facility] Adenovirus Detection by PCR Not Detected Not Detected LAB MICROBIOLOGY METHOD 02/25/2025 3:12 AM EDT [facility] Influenza A PCR Not Detected Not Detected LAB MICROBIOLOGY METHOD 02/25/2025 3:12 AM EDT [facility] Influenza B PCR Not Detected Not Detected LAB MICROBIOLOGY METHOD 02/25/2025 3:12 AM EDT [facility] Coronavirus 229E Not Detected Not Detected LAB MICROBIOLOGY METHOD 02/25/2025 3:12 AM EDT [facility] Coronavirus HKU1 Not Detected Not Detected LAB MICROBIOLOGY METHOD 02/25/2025 3:12 AM EDT [facility] Coronavirus OC43 Not Detected Not Detected LAB MICROBIOLOGY METHOD 02/25/2025 3:12 AM EDT [facility] Coronavirus NL63 Not Detected Not Detected LAB MICROBIOLOGY METHOD 02/25/2025 3:12 AM EDT [facility] Parainfluenza Virus 1 Not Detected Not Detected LAB MICROBIOLOGY METHOD 02/25/2025 3:12 AM EDT [facility] Parainfluenza Virus 2 Not Detected Not Detected LAB MICROBIOLOGY METHOD 02/25/2025 3:12 AM EDT [facility] Parainfluenza Virus 3 Not Detected Not Detected LAB MICROBIOLOGY METHOD 02/25/2025 3:12 AM EDT [facility] Parainfluenza Virus 4 Not Detected Not Detected LAB MICROBIOLOGY METHOD 02/25/2025 3:12 AM EDT [facility] RSV PCR Not Detected Not Detected LAB MICROBIOLOGY METHOD 02/25/2025 3:12 AM EDT [facility] Human Metapneumovirus A and B Not Detected Not Detected LAB MICROBIOLOGY METHOD 02/25/2025 3:12 AM EDT [facility] Rhinovirus/Entero virus Not Detected Not Detected LAB MICROBIOLOGY METHOD 02/25/2025 3:12 AM EDT [facility] Bordetella pertussis Not Detected Not Detected LAB MICROBIOLOGY METHOD 02/25/2025 3:12 AM EDT [facility] Bordetella parapertussis Not Detected Not Detected LAB MICROBIOLOGY METHOD 02/25/2025 3:12 AM EDT [facility] Mycoplasma pneumo by PCR Not Detected Not Detected LAB MICROBIOLOGY METHOD 02/25/2025 3:12 AM EDT [facility] Chlamydia pneumoniae Not Detected Not Detected LAB MICROBIOLOGY METHOD 02/25[facility]2025 3:[facility] SARS COV-2 Not Detected Not Detected LAB MICROBIOLOGY METHOD 02/25/2025 3:12 AM EDT [facility] Swab Both anterior nares / Unknown Non-blood Collection / Unknown 02/25/2025 1:35 AM EDT 02/25/2025 2:16 AM EDT Narrative [facility] - 02/25/2025 3:12 AM EDT Testing was performed using the [employer] Respiratory Pathogen PCR Assay. All results must [...] us Kim ROBERTO LAB MICROBIOLOGY - GENERAL ORDThor LENZ Final Result [facility] [address] [place] [address], * XR Elbow 3+ Views Right (02/25/2025 1:01 AM EDT) Anatomical Region Laterality Modality Upper Extremities, Elbow Right Radiogr aphic Imaging 02/25/2025 8:10 AM EDT Impressions 02/25/2025 8:12 AM EDT Normal examination of the right elbow. Code 49758 -------- FINAL REPORT -------- Dictated By: Roscoe Willis Dictated Date: 02/25/2025 08:10 ET Assigned Physician: Roscoe Willis Reviewed and Electronically Signed By: Roscoe Willis Signed Date: 02/25/2025 08:12 ET Workstation ID: [id number] Transcribed By: Self Edit Transcribed Date: 02/25/2025 [...] Normal examination of the right elbow. Code 85782 -------- FINAL REPORT -------- Dictated By: Roscoe Willis Dictated Date: 02/25/2025 08:10 ET Assigned Physician: Roscoe Willis Reviewed and Electronically Signed By: Roscoe Willis Signed Date: 02/25/2025 08:12 ET Workstation ID: [id number] Transcribed By: Self Edit Transcribed Date: 02/25/2025 [...] GEMUSE QTc 460 ms GEMUSE P Wave Weston 40 degrees GEMUSE R Weston 17 degrees GEMUSE T Weston 11 degrees GEMUSE ECG Interpretation Normal sinus rhythm Normal ECG When compared with ECG of 24-FEB-2025 20:54, (unconfirmed) No significant change was found Confirmed by Lucy KENNEDY JAMES ([id number]) on 02/26/2025 5:55:31 AM GEMUSE 02/24/2025 11:0 7 PM EDT 02/26/2025 5:55 AM EDT us Luigi Tim MD ECG ORDERABLES Final Result [...] and culture (02/24/2025 10:47 PM EDT) Specific [place] Urine 1.012 1.003 - 1.030 LAB URINALYSIS - AUTOMATED METHOD 02/24/2025 11:45 PM [facility] pH, Urine 8.0 5.0 - 8.0 pH LAB URINALYSIS - AUTOMATED METHOD 02/24/2025 11:45 PM [facility] Leukocytes, Urine Small(A) Negative LAB URINALYSIS - AUTOMATED METHOD 02/24/2025 11:45 PM [facility] Nitrite, Urine Negative Negative LAB URINALYSIS - AUTOMATED METHOD 02/24/2025 11:45 PM [facility] Protein, Urine Negative <=Trace mg/dL LAB URINALYSIS - AUTOMATED METHOD 02/24/2025 11:45 PM [facility] Glucose, Urine Negative Negative mg/dL LAB URINALYSIS - AUTOMATED METHOD 02/24/2025 11:45 PM [facility] Ketones, Urine Negative Negative mg/dL LAB URINALYSIS - AUTOMATED METHOD 02/24/2025 11:45 PM [facility] Urobilinogen, Urine 1.0 0.2 - 1.0 mg/dL LAB URINALYSIS - AUTOMATED METHOD 02/24/2025 11:45 PM [facility] Bilirubin, Urine Negative Negative LAB URINALYSIS - AUTOMATED METHOD 02/24/2025 11:45 PM EDT [facility] Blood, Urine Negative Negative LAB URINALYSIS - AUTOMATED METHOD 02/24/2025 11:45 PM EDT [facility] RBC, Urine 1.2 0 - 4 /HPF LAB URINALYSIS - AUTOMATED METHOD 02/24/2025 11:45 PM EDT [facility] WBC, Urine 10.4(H) 0 - 4 /HPF LAB URINALYSIS - AUTOMATED METHOD 02/24/2025 11:45 PM EDT [facility] Squamous Epithelial, Urine 12 0 - 60 /LPF LAB URINALYSIS - AUTOMATED METHOD 02/24/2025 11:45 PM EDT [facility] Bacteria, Urine Negative Negative /HPF LAB URINALYSIS - AUTOMATED METHOD 02/24/2025 11:45 PM [facility] Hyaline Casts, Urine 0.4 0 - 3 /LPF LAB URINALYSIS - AUTOMATED METHOD 02/24/2025 11:45 PM T [facility] Urine Urine specimen obtained by clean catch procedure / Unknown Non-blood Collection / Unknown 02/24/2025 10:47 PM EDT 02/24/2025 11:09 PM EDT us Kim ROBERTO LAB URINE ORDERABLES Final Resu lt [facility] [address] [place] [address], * (ABNORMAL) Drug abuse screen 8a panel, urine (02/24/2025 10:47 PM EDT) Amphetamine Screen, Ur Negative Negative LAB CHEMISTRY METHOD 11:55 PM EDT [facility] Comment:Certain OTC medicati ons containing ephedrine, phenylephrine, pseudoephedrine and phenylpropanolamine can cause false positive results. Barbiturate Screen, Ur Positive(A ) Negative LAB CHEMISTRY METHOD 5 11:55 PM EDT [facility] Benzodiazepine Screen, Ur Negative Negative LAB CHEMISTRY METHOD 5 11:55 PM EDT [facility] Cocaine Screen, Ur Negative Negative LAB CHEMISTRY METHOD 5 11:55 PM EDT [facility] Opiate Screen, Ur Negative Negative LAB CHEMISTRY METHOD 5 11:55 PM EDT [facility] Cannabinoid (THC) Screen, Ur Negative Negative LAB CHEMISTRY METHOD 5 11:55 PM EDT [facility] Comment:Specimens from patie nts taking pantoprazole sodium (Protonix) have been shown to produce false positive results. Oxycodone Screen, Ur Negative Negative LAB CHEMISTRY METHOD 5 11:55 PM EDT [facility] Fentanyl, Ur Negative Negative LAB CHEMISTRY METHOD 5 11:55 PM T [facility] Urine Urine specimen obtained by clean catch procedure / Unknown Non-blood Collection / Unknown 02/24/2025 10:47 PM EDT 02/24/2025 11:09 PM EDT Narrative [facility] - 02/24/2025 11:55 PM EDT [...] ROBERTO LAB URINE ORDERABLES Final Resu lt [facility] [address] [place] [address], * (ABNORMAL) Methadone, urine (02/24/2025 10:47 PM EDT) [facility] Methadone Screen, Urine Positive (A) Negative LAB CHEMISTRY METHOD 02/25/2025 2:29 AM EDT [facility] Comment: Assay cutoff 300 ng/mL Semi-quantitative assay for screening purposes only. Unconfirmed screening result should not be used for non-medical purposes. *ALTERNATE METHOD CONFIRMATION DONE UPON REQUEST ONLY* Urine Urine specimen obtained by clean catch procedure / Unknown Non-blood Collection / Unknown 02/24/2025 10:47 PM EDT 02/24/2025 11:09 PM EDT Mayo Carballo MD LAB URINE ORDERABLES Final Result [facility] [address] [place] [address], [place] [phone] * Culture urine (02/24/2025 10:47 PM EDT) [facility] Culture, Urine No growth 02/26/2025 9:12 AM EDT [facility] Urine Urine specimen obtained by clean catch procedure / Unknown Non-blood Collection / Unknown 02/24/2025 10:47 PM EDT 02/24/2025 11:45 PM EDT Kim ROBERTO LAB MICROBIOLOGY - GENERAL HUMA LENZ Final Result [facility] [address] [place] [address], [place] [phone] * Troponin I high sensitivity (02/24/2025 10:27 PM EDT) Only the most recent of2 resultswithin the time period is included. [facility] [address] High Sensitivity Troponin I 3 <=79 ng/L LAB CHEMISTRY METHOD 02/24/2025 11:00 PM EDT [facility] Blood Venous blood specimen / Unknown Venipuncture / Unknown 02/24/2025 10:27 PM EDT 02/24/2025 10:32 PM EDT Narrative [facility] - 02/24/2025 11:00 PM EDT High levels of biotin in samples may falsely decrease hsTroponin values. Use caution when interpreting hsTroponin results in patients taking biotin who exhibit renal impairment (eGFR <60) or in patients taking more than 20 mg/day of biotin. us Luigi Tim MD LAB BLOOD ORDERABLES Final Resu lt Performing Organization Address [facility] Co de Phone Number [facility] [address] [place] [address], [place] [phone] * Lipase (02/24/2025 10:27 PM EDT) Lipase 67 13 - 75 unit/L LAB CHEMISTRY METHOD 02/24/2025 11:03 PM EDT [facility] Blood Venous blood specimen / Unknown Venipuncture / Unknown 02/24/2025 10:27 PM EDT 02/24/2025 10:32 PM EDT Luigi Tim MD LAB BLOOD ORDERABLES Final Resu lt Performing Organization Address [facility] Co de Phone Number [facility] [address] [place] [address], [place] [phone] * (ABNORMAL) Ethanol (02/24/2025 10:27 PM EDT) Ethanol Level 50(H) 0 - 10 mg/dL LAB CHEMISTRY METHOD 02/24/2025 11:03 PM EDT [facility] Blood Venous blood specimen / Unknown Venipuncture / Unknown 02/24/2025 10:27 PM EDT 02/24/2025 10:32 PM EDT Kim ROBERTO LAB BLOOD ORDERABLES Final Resu lt Performing Organization Address City/[facility]/ZIP Co de Phone Number [facility] [place] [facility] [address] [place] [address], * XR Chest 2 Views (02/24/2025 10:18 PM EDT) Anatomical Region Laterality Modality Body Radiographic Bianca ging 02/25/2025 8:01 AM EDT Impressions 02/25/2025 8:01 AM EDT Limited depth of inspiration. The lungs are clear. Code 89899 -------- FINAL REPORT -------- Dictated By: Roscoe Willis Dictated Date: 02/25/2025 08:01 ET Assigned Physician: Roscoe Willis Reviewed and Electronically Signed By: Roscoe Willis Signed Date: 02/25/2025 08:01 ET Workstation ID: [id number] Transcribed By: Self Edit Transcribed Date: 02/25/2025 [...] of inspiration. The lungs are clear. Code 18557 -------- FINAL REPORT -------- Dictated By: Roscoe Willis Dictated Date: 02/25/2025 08:01 ET Assigned Physician: Roscoe Willis Reviewed and Electronically Signed By: Roscoe Willis Signed Date: 02/25/2025 08:01 ET Workstation ID: [id number] Transcribed By: Self Edit Transcribed Date: 02/25/2025 08:01 ET Luigi Tim MD IMG XR PROCEDURES Final Result * B-type natriuretic peptide (02/24/2025 9:13 PM EDT) BNP 61 <=100 pcg/mL LAB CHEMISTRY METHOD 02/24/2025 9:51 PM EDT [facility] Blood Venous blood specimen / Unknown Venipuncture / Unknown 02/24/2025 9:13 PM EDT 02/24/2025 9:18 PM EDT Luigi Tim MD LAB BLOOD ORDERABLES Final Resu lt [facility] [address] [place] [address], from Last 3 Months Insurance [facility] [employer] Advance Directives * [...] currently active code status orders. Care Teams Pattern Developer Relationship Specialty Start Date End Date Kim Lemus MD [address] [place] [address] PCP - General Internal Medicine 05/11/19
--- OUTSIDE RECORDS SUMMARY | 2025-04-29 23:34 | XMS_ITS | Clinical Summary ---
Author Organization [facility] Address [address] [place] [address] Care Team Providers Care Signal Circuit Designer Name Role Phone Patient, Has No Pcp [...] and Ativan from streets. Received records from [facility] in [place] where he was admitted for detox 07/2015: [...] 71 05/23/2024 6:39 PM EDT Temperature 36.9 C (98.4 F) 05/23/2024 2:10 PM EDT Respiratory Rate 18 05/23/2024 6:39 PM EDT [...] Health Melonie ual Screening 10/10/2024 Influenza Vaccine (#1) 2025 , 06/24/2020, 07/10/2019, Additional history exists RSV Vaccine (60+ years old a nd patients) (1 - 1-dose 75+ series) [address] [facility] MEDICAID Advance Directives Documents on File Type Date Recorded Patient Resource Development Director Expl anation Health Care Proxy 02/08/2024 5:53 PM 2023 * Full Code (Latest Code Status on File) Date Activated Date Inactivated Comments 01/23/2024 5:59 PM 02/16/2024 7:48 PM Healthcare Agents on File Name Relationship Healthcare Agent [facility] p Communication Renyabel Ramham Mother Health Care Agent Care Teams Signal Circuit Designer Relationship Specialty Start Date End Date Patient, Has No Pcp Or Ref DO NOT EDIT THIS RECORD VIA PROVIDER ON THE FLY PCP - General Bench Worker Binding 02/21/23
[2025-04-30 01:07] VITALS: BP 144/87; PULSE 78; RESP 18; TEMP 36.7; O2SAT 97
--- NOTE | 2025-04-30 02:10 | PC.NURSE ---
Addendum entered by Nilsa Briscoe 04/30/25 02:22: L upper arm IV, not Right Original Note: US 20g IV R upper arm. pt refused lactulose. pt states he usually takes it in the morning, does not want it now. explained to pt that he was very sick and needed it. pt still refused until AM
[2025-04-30 02:42] LABS: INTERNATIONAL NORM RATIO 2.1 (0.9-1.1); Prothrombin Time 24.1 SEC (10.9-12.4)
[2025-04-30] MEDS: iohexoL 350 MG/ML 100 ML INFUS..BTL 85 ML IV (02:59)
[2025-04-30 03:33] LABS: Cannabinoid Screen Urine Not Detected (Not Detect)
--- NOTE | 2025-04-30 04:26 | PM.IMHP ---
History of Present Illness Date of Service: 04/30/25 Attending physician on admission: Shannan Peres Chief Complaint: Jaundice Patient is a 34-year-old male with past medical history cirrhosis of the liver, hepatic steatosis, end-stage liver disease with portal venous hypertension, substance use disorder on methadone, hepatitis-C (no tx initiated per patient) was driven to the emergency department by his father after being found on the floor of the for your at home. Patient had some bleeding that arose from the forehead likely due to the fact that he has liver failure with very low platelet count of 65,000. Patient was responding appropriately and with the assistance was able to get to the car so patient could be driven into the emergency department. Patient arrived and was jaundiced in the skin in the sclera. Abdomen grossly distended and firm. Noted tenderness with exam as well. Patient has no indication of head trauma or cervical spine injury noting the unwitnessed fall. Head CT and CT of the cervical spine were not completed in the ED based on providers clinical exam. Patient was previously admitted to [facility] for his liver issues 11 days prior. Pt learned that he has less than 6 month prognosis. In the emergency department patient underwent an abdominal pelvic CT which noted cirrhosis with sequela of portal venous hypertension. Patient also had thick walled loops of proximal small bowel indicating possible enteritis. Patient is not having any nausea or vomiting or diarrhea. Patient has no leukocytosis or fever. Patient's ammonia level was 91 and initially patient refused lactulose. After seeing patient for admission patient agreed to 30 g x 1 now and we will continue to take lactulose throughout the day as ordered.Significant asterixis noted on exam with bruising on both arms, feet along with suspected Oziel spots on legs and arms. Patient was told about his hepatitis-C and has had to start treatment but is still interested in initiating treatment if possible. Patient offers that he does not want to be considered for a liver transplant as liver should go to a younger more deserving person. Patient currently living with his parents and has not worked for the last 2 weeks has a symptoms are progressing. Patient is interested in hospice consultation to learn more about the process and how this might help him to remain at home with care in place. Patient very tearful when hearing the truth about his prognosis. Patient understands he will meet with GI later today but his disposition is remarkable considering his health concerns. Patient is not feeling suicidal but is experiencing some anxiety and pain issues. Dilaudid and morphine have not helped his pain as patient is on methadone. Patient will receive 1 dose of methadone 10 mg and once med rec is completed we will resume his usual methadone dosing. Review of Systems Review of Systems: Patient reports issues with abdominal pain, itchy skin, abdominal distention but denies any nausea vomiting diarrhea or constipation issues at this time. Patient is having abdominal pain. Patient denies any headaches or difficulty swallowing. Patient reports bruising on extremities but no open wounds. Yes all other systems are reviewed and are negative [facility] Medical History Alcohol use disorder, severe, dependence Methadone maintenance therapy patient Cirrhosis Edema Alcohol abuse Increased ammonia level Cirrhosis Substance abuse Opiate use Cognitive capacity: Alert and orientated x3, patient able to interact appropriately and answer all questions asked Functional capacity: independent ambulation Social History Household Members: Other Household Members Other:: brother Housing: House Do you presently have visiting nurse or other home services: No Alcohol intake: current Alcohol intake frequency: former alcohol drinker Alcohol type: hard liquor Comment: pt refuses assistance OOB. Encouraged to call for assistance Patient Tobacco Use Status: Current everyday Tobacco user Tobacco use type: Cigarette Cigarette Packs Per Day: 1 Cigarettes Per Day: 20.0 Smoked in Last 30 Days: No e-Cigarette/Vaping Use: Currently Using Use of substances other than those prescribed or required for medical reasons: No Advance Directives: Yes Advance Directives on File: Yes Advance Directives Date on File: 02/18/25 Do you have a plan to hurt others: No Plan service: No Ebola Risk: Travel/Contact With Anyone From Affected Area/s: No Has Patient Experienced Ebola Symptoms: No Meds Allergies Allergy/AdvReac Type Severity Reaction Status Date / Time fish derived (fish) Allergy Anaphylaxis Verified 04/29/25 20:44 shellfish derived Allergy Anaphylaxis Verified 04/29/25 20:44 Active Medications: Current Medications Albuterol/Ipratropium (Albuterol/Iprat 2.5/0.5mg 3 Ml Ampul.Neb) 3 ml INHALE Q4H PRN PRN Reason: Shortness of Breath/Wheezing Lactulose (Lactulose 20 Gm/30 Ml Solution) 30 gm PO TID [facility] Melatonin (Melatonin 3 Mg Tablet) 6 mg PO BEDTIME PRN PRN Reason: Insomnia Ondansetron HCl (Ondansetron Hcl 4 Mg/2 Ml Vial) 4 mg IVPUSH Q8H PRN PRN Reason: Nausea and Vomiting Sodium Chloride (0.9 % Sodium Chloride Flush 3 Ml Syringe) 3 ml IVFLUSH QSHIFT [facility] Home Medications ?Medication ?Instructions ?Recorded ?Confirmed ?Last Taken ?Type methadone 10 mg/mL oral concentrate 85 mg PO DAILY 03/03/24 03/28/25 02/11/25 History aripiprazole 15 mg tablet 15 mg DAILY 12/13/24 03/28/25 02/12/25 History clonidine HCl 0.1 mg tablet 0.1 mg PO BID 12/13/24 03/28/25 02/11/25 History gabapentin 800 mg tablet 800 mg PO TID 12/13/24 03/28/25 02/12/25 History multivitamin-iron 9 mg-folic acid 1 tab PO DAILY 12/13/24 03/28/25 02/11/25 History 400 mcg-calcium and minerals tablet (Therapeutic-M) sertraline 100 mg tablet 100 mg PO DAILY 12/13/24 03/28/25 02/11/25 History thiamine HCl (vitamin B1) 100 mg 200 mg PO DAILY 12/13/24 03/28/25 02/11/25 History tablet folic acid 1 mg tablet 1 mg PO DAILY 02/12/25 03/28/25 02/11/25 History magnesium oxide 400 mg (241.3 mg 400 mg PO DAILY 02/12/25 03/28/25 02/11/25 History magnesium) tablet melatonin 5 mg tablet 5 mg PO BEDTIME PRN Sleep 02/12/25 03/28/25 Unknown History mirtazapine 7.5 mg tablet 7.5 mg PO DAILY 02/12/25 03/28/25 02/11/25 History tamsulosin 0.4 mg capsule 0.4 mg PO DAILY 02/12/25 03/28/25 02/11/25 History lactulose 10 gram/15 mL oral 60 ml PO TID 03/28/25 03/28/25 Unknown History solution linaclotide 145 mcg capsule 145 mcg PO QAM 03/28/25 03/28/25 Unknown History (Linzess) quetiapine 150 mg tablet 150 mg PO BEDTIME 03/28/25 03/28/25 Unknown History Physical Exam Vital Signs and Narrative: Vital Signs: Last Vital Signs Temp 98.0 F 04/30/25 01:07 Pulse 78 04/30/25 01:07 Resp 18 04/30/25 01:07 BP 144/87 H 04/30/25 01:07 Pulse Ox 97 04/30/25 01:07 O2 Del Method Room Air 04/30/25 01:07 BMI result Body Mass Index 36.6 Alert and orientated X3, able to give good history. No obvious encephalopathy noted Neuro: CN II-X11 intact, visual acuity intact, asterixis noted in upper extremities, no tenderness with palpation of spine in the cervical thoracic and lumbar area EYES: PERRLA, EOM intact, sclerae icteric HENT: hearing intact, no issues with swallowing, uvula midline, lips moist, nares patent no epistaxis, normocephalic atraumatic, no nuchal rigidity, patient has full range of motion in the cervical spine area Cardiac: S1 S2 RRR, no murmur, no JVD, moderate edema in upper and Lower ext Pulmonary: lungs diminished bilaterally Abdominal: BS diminished in all 4 quadrants, distention present, tenderness with palpation on exam, no rebound tenderness or guarding MSK: strength 5/5 upper and lower extremities : no CVA tenderness no bladder distension Extremities: Moderate edema in upper and lower extremities, PT and DP pulses palpable +2 Psych: mood anxious, judgement and insight good, patient is not suicidal SKin: Jaundice skin from head to toe, Oziel spots upper and lower extremities, bruising under the right arm, no bruising on the torso or flank areas, bruise noted on right foot Results Labs 04/29/25 21:16 04/29/25 21:16 Labs: Laboratory Results - last 24 hr 04/29/25 04/29/25 04/30/25 21:16 21:17 02:32 MCV 93.4 MCH 32.5 MCHC 34.8 RDW 20.4 H Plt Count 65 L MPV 10.2 Immature Gran % (Auto) 0.9 H Neut % (Auto) 79.7 H Lymph % (Auto) 12.1 L [place] % (Auto) 7.1 Eos % (Auto) 0.1 Baso % (Auto) 0.1 Lymph # (Auto) 0.8 L [place] # (Auto) 0.5 Eos # (Auto) 0.0 Baso # (Auto) 0.0 Abs Immat Gran (auto) 0.06 H Absolute Neuts (auto) 5.4 Absolute Nucleated RBC 0.000 Nucleated RBC % (auto) 0.0 Smear Tech's Comments VERIFIED PT 24.1 H D INR 2.1 H Anion Gap 8 L Estim Creat Clear Calc 278.4 Estimated GFR > 60 Random Glucose 100 Calcium 8.4 Total Bilirubin 27.6 H Direct Bilirubin 19.0 H AST 261 H ALT 126 H Alkaline Phosphatase 226 H Ammonia 91 H Total Protein 6.8 Albumin 2.7 L Lipase 37 Urine Opiates Screen Ur Buprenorphine Scrn Ur Oxycodone Screen Urine Methadone Screen Urine Fentanyl Screen Ur Barbiturates Screen Ur Phencyclidine Scrn Ur Amphetamines Screen U Benzodiazepines Scrn Urine Cocaine Screen U Marijuana (THC) Screen Ethyl Alcohol < 10 Influenza Type A (PCR) NEGATIVE Influenza Type B (PCR) NEGATIVE RSV RNA Qual (PCR) NEGATIVE SARS-CoV-2 RNA (RT-PCR) NEGATIVE 04/30/25 03:17 MCV MCH MCHC RDW Plt Count MPV Immature Gran % (Auto) Neut % (Auto) Lymph % (Auto) [place] % (Auto) Eos % (Auto) Baso % (Auto) Lymph # (Auto) [place] # (Auto) Eos # (Auto) Baso # (Auto) Abs Immat Gran (auto) Absolute Neuts (auto) Absolute Nucleated RBC Nucleated RBC % (auto) Smear Tech's Comments PT INR Anion Gap Estim Creat Clear Calc Estimated GFR Random Glucose Calcium Total Bilirubin Direct Bilirubin AST ALT Alkaline Phosphatase Ammonia Total Protein Albumin Lipase Urine Opiates Screen POSITIVE H Ur Buprenorphine Scrn Not Detected Ur Oxycodone Screen Not Detected Urine Methadone Screen Positive H Urine Fentanyl Screen Not Detected Ur Barbiturates Screen Not Detected Ur Phencyclidine Scrn Not Detected Ur Amphetamines Screen Not Detected U Benzodiazepines Scrn POSITIVE H Urine Cocaine Screen Not Detected U Marijuana (THC) Screen Not Detected Ethyl Alcohol Influenza Type A (PCR) Influenza Type B (PCR) RSV RNA Qual (PCR) SARS-CoV-2 RNA (RT-PCR) Imaging Radiologist's Impressions: CT ABD PELVIS IMPRESSION: 1. Cirrhosis with sequela of portal venous hypertension. 2. Thick-walled loops of proximal small bowel with mild adjacent fat stranding, possibly enteritis. Please correlate clinically. Assessment and Plan (1) Liver failure: Qualifiers: Hepatic coma status: without hepatic coma Liver failure chronicity: subacute Qualified Code(s): K72.00 - Acute and subacute hepatic failure without coma Status: Acute Plan Patient is a 34-year-old male with past medical history cirrhosis of the liver, hepatic steatosis, end-stage liver disease with portal venous hypertension, substance use disorder on methadone, hepatitis-C (no tx initiated per patient) is being admitted status post unwitnessed fall with known end-stage liver failure and patient was told he has less than a 6 month prognosis. Cirrhosis/ Liver failure with portal venous hypertension GI consulted Patient now agreeable to lactulose 30 g 3 times a day, likely will need up to 60 g 3 times a day Ordered rifaximin 550 BID NPO Pt is not currently on spironolcatone Continue to trend ammonia level, no obvious evidence of encephalopathy Fall risk is high as patient has noted asterixis in extremities H&H are currently stable Trend CBC and CMP Patient has evidence of hepatitis-C infection and states he has not been able to obtain treatment Patient requesting hospice consultation, realistic about prognosis. Patient currently living with his parents. Additional methadone dose of 10 mg provided, Dilaudid and morphine have been ineffective for pain control Hyperammonemia secondary to liver failure Ammonia level 91, patient does not appear to be encephalopathic at this time Rifaximin 550 b.i.d. ordered Patient now agreeable to lactulose, 1st dose given 05:00 Trend ammonia level Enteritis Stool panel ordered No diarrhea currently Antiemtics prn Thrombocytopenia/ splenomegaly Platelets 65,000 Hold DVT prophylaxis Monitor closely No evidence of spontaneous bleeding Bruising noted under right arm Hepatitis-C Patient's HCV RNA was [id number] with ratio 5.13 03/28/2025 Patient states he has not started treatment but has been attempting to do so GI consult placed for this morning Substance use disorder Patient currently taking methadone Additional 10 mg of methadone provided this morning for pain Once med rec completed patient can continue his usual methadone dose Dilaudid and morphine have been ineffective for controlling patient's pain Bipolar depression/Anxiety Valium prn Pt deferred psychaitric consult at this time Pt is not suicidal DVT prophylaxis: Held secondary to low platelet count Med rec pending Full Code status Quality Stroke Does the patient have a stroke diagnosis?: No Reason for No Anti-thrombotic by Day Two: Contraindicated (Thrombocytopenia) VTE Prior VTE?: No VTE Risk Level:: Medical - moderate - high VTE Device Contraindication: N/A - Device Ordered VTE Drug Contraindication: Treatment Not Tolerated
[2025-04-30] MEDS: diazePAM 10 MG/2 ML CARTRIDGE 5 MG IVPUSH (05:23)
[2025-04-30 06:31] LABS: Hematocrit 34.7 % (42.0-52.0); Hemoglobin 12.1 g/dl (14.0-18.0); Mean Corpuscular HGB Conc 34.9 g/dl (31.0-36.0); Mean Corpuscular Hemoglobin 32.8 pg (27.0-33.0); Mean Corpuscular Volume 94.0 fL (80.0-98.0); NRBC Abs Auto 0.000 X10*3/uL (0.0-0.012); NRBC Pct Auto 0.0 /100WBC (0.0-0.2); Red Blood Count 3.69 X10*6/uL (4.60-5.80); White Blood Count 5.7 X10*3/uL (4.8-10.8)
[2025-04-30 06:32] LABS: Platelet Count 59 X10*3/uL (160-400)
[2025-04-30 06:47] LABS: Alanine Aminotransferase 113 U/L (0-40); Albumin Level 2.5 g/dL (3.5-5.0); Alkaline Phosphatase 204 U/L (39-117); Anion Gap 12 (12-20); Aspartate Amino Transferase 221 U/L (5-37); Blood Urea Nitrogen 8 mg/dL (9-16); Calcium 8.1 mg/dL (8.4-10.2); Carbon Dioxide 26 mmol/L (22-29); Chloride 106 mmol/L (96-108); Creatinine Clr Calc Pharmacy 292.7; Estimated Glomerular Filt Rate > 60; Magnesium 2.0 mg/dL (1.6-2.6); Potassium 3.6 mmol/L (3.3-5.1); Sodium 140 mmol/L (135-145); Total Protein 6.0 g/dL (6.5-8.0)
[2025-04-30 08:12] VITALS: BP 126/65; PULSE 75; RESP 14; TEMP 36.6; O2SAT 94
--- NOTE | 2025-04-30 08:21 | PM.GICN ---
History of Present Illness Data of Consult Service Date: 04/30/25 Primary Care Provider: Stephen Biggs MD HPI Reason for consult: jaundice 34-year-old male with past medical history cirrhosis of the liver 2/2 alcohol use and untreated hepatitis-C , hepatic steatosis, substance use disorder on methadone, who I am seeing for assessment for jaundice. Patient was found down by dad, has no recollection of what happened. Dad brought him. He was noted to be jaundiced. he mentions several months of burning pain and numbness in right leg. He aslo noted some mid abdominal discomfort and abnormal stools. denies melena, rectal bleeding, no sick contacts or ingestion of suspicious foods. He had been drinking 2 bottles of vodka most days, stopped 30d ago. CT iamging with thick walled loops of small bowel, ? enteritis. Commenced on lactulose due to asterixis and shakiness. MELD right now is 29 with 76% 90 d survival outlook Review of Systems Review of Systems: Constitutional : No Weight loss, No Fever, No Chills ENT/Mouth : No sore throat, No Rhinorrhea Eyes: No Swelling, No Redness Cardiovascular : No Chest Pain, No SOB, No Edema Respiratory : No Cough, No Sputum, No Wheezing Gastrointestinal : see HPI Genitourinary : NO Dysuria, No Urinary Frequency, No Hematuria, No Urgency Musculoskeletal : no joint pain, No Myalgias, No Joint Swelling Skin : No Skin Lesions, No rash Neuro : + Weakness, + Numbness, No Dizziness, No Headache Psych : No Anxiety/Panic, No Depression Heme/Lymph: + Bruising, No Lymphadenopathy Endocrine : No Polyuria, No Polydipsia All other systems reviewed and are negative. [facility] Past Medical History Medical History (Updated 04/30/25 @ 15:37 by Guanakito Hernandez MD) Cirrhosis Alcohol use disorder, severe, dependence Methadone maintenance therapy patient Cirrhosis Edema Alcohol abuse Increased ammonia level Substance abuse Opiate use Family History Pertinent family history: no FH of colon cancer Social History Social History Household Members: Other Household Members Other:: brother Housing: House Do you presently have visiting nurse or other home services: No Alcohol intake: current Alcohol intake frequency: former alcohol drinker Alcohol type: hard liquor Comment: pt refuses assistance OOB. Encouraged to call for assistance Patient Tobacco Use Status: Never used Tobacco Tobacco use type: Cigarette Cigarette Packs Per Day: 1 Cigarettes Per Day: 20.0 e-Cigarette/Vaping Use: Currently Using Advance Directives Date on File: 02/18/25 service: No Travel History Ebola Risk: Travel/Contact With Anyone From Affected Area/s: No Has Patient Experienced Ebola Symptoms: No Meds Allergies Allergy/AdvReac Type Severity Reaction Status Date / Time fish derived (fish) Allergy Anaphylaxis Verified 04/29/25 20:44 shellfish derived Allergy Anaphylaxis Verified 04/29/25 20:44 Active Medications: Current Medications Albuterol/Ipratropium (Albuterol/Iprat 2.5/0.5mg 3 Ml Ampul.Neb) 3 ml INHALE Q4H PRN PRN Reason: Shortness of Breath/Wheezing Diazepam (Diazepam 10 Mg/2 Ml Cartridge) 5 mg IVPUSH Q6H PRN PRN Reason: Anxiety Last Admin: 04/30/25 05:23 Dose: 5 mg Lactulose (Lactulose 20 Gm/30 Ml Solution) 30 gm PO TID [facility] Last Admin: 04/30/25 05:10 Dose: 30 gm Melatonin (Melatonin 3 Mg Tablet) 6 mg PO BEDTIME PRN PRN Reason: Insomnia Ondansetron HCl (Ondansetron Hcl 4 Mg/2 Ml Vial) 4 mg IVPUSH Q8H PRN PRN Reason: Nausea and Vomiting Rifaximin (Rifaximin 550 Mg Tablet) 550 mg PO BID [facility] Sodium Chloride (0.9 % Sodium Chloride Flush 3 Ml Syringe) 3 ml IVFLUSH [facility] Home Medications ?Medication ?Instructions ?Recorded ?Confirmed ?Last Taken ?Type methadone 10 mg/mL oral concentrate 85 mg PO DAILY 03/03/24 03/28/25 02/11/25 History clonidine HCl 0.1 mg tablet 0.1 mg PO TID 12/13/24 04/30/25 04/28/25 History gabapentin 800 mg tablet 800 mg PO TID 12/13/24 04/30/25 04/28/25 History sertraline 100 mg tablet 100 mg PO DAILY 12/13/24 04/30/25 04/28/25 History thiamine HCl (vitamin B1) 100 mg 200 mg PO DAILY 12/13/24 04/30/25 04/28/25 History tablet magnesium oxide 400 mg (241.3 mg 400 mg PO DAILY 02/12/25 04/30/25 04/28/25 History magnesium) tablet melatonin 5 mg tablet 5 - 10 mg PO BEDTIME PRN Sleep 02/12/25 04/30/25 04/28/25 History tamsulosin 0.4 mg capsule 0.4 mg PO DAILY 02/12/25 04/30/25 04/28/25 History lactulose 10 gram/15 mL oral 60 ml PO TID 03/28/25 04/30/25 04/28/25 History solution linaclotide 145 mcg capsule 145 mcg PO DAILY 03/28/25 04/30/25 04/28/25 History (Linzess) nicotine 21 mg/24 hr daily 1 patch topical DAILY 04/30/25 04/30/25 Unknown History transdermal patch prednisone 20 mg tablet 40 mg PO DAILY 04/30/25 04/30/25 04/28/25 History Physical Exam Exam: Exam: EXAM: GENERAL: The patient is jaundiced VITAL SIGNS:see workflow HEENT: icteric sclerae, PERRLA, EOMI. Oropharynx clear. Moist mucous membranes. Conjunctivae appear well perfused. No thyroid mass. CHEST: Chest wall is nontender. HEART: Regular rate and rhythm without murmurs. LUNGS: Clear to auscultation bilaterally. ABDOMEN: Soft, positive bowel sounds, nontender, no organomegaly.no flank tenderness SKIN: No rash, few bruises on arms NEUROLOGIC: Cranial nerves II-XII intact without motor/sensory deficit. slight asterixis Psych: normal affect Vital Signs: Vital Signs: Last Vital Signs Temp 97.9 F 04/30/25 08:12 Pulse 75 04/30/25 08:12 Resp 14 04/30/25 08:12 BP 126/65 04/30/25 08:12 Pulse Ox 94 04/30/25 08:12 O2 Del Method Room Air 04/30/25 08:12 BMI result Body Mass Index 36.6 Results Labs 04/30/25 06:03 04/30/25 06:03 Labs: Short CBC 04/29/25 04/30/25 Range/Units 21:16 06:03 WBC 6.8 5.7 (4.8-10.8) X10*3/uL Hgb 12.7 L 12.1 L (14.0-18.0) g/dl Hct 36.5 L 34.7 L (42.0-52.0) % Plt Count 65 L 59 L (160-400) X10*3/uL BMP 04/29/25 04/30/25 21:16 06:03 Sodium 138 140 Potassium 4.4 3.6 Chloride 107 106 Carbon Dioxide 27 26 BUN 8 L 8 L Creatinine 0.41 L 0.39 L Calcium 8.4 8.1 L Liver Function 04/29/25 04/30/25 Range/Units 21:16 06:03 Total Bilirubin 27.6 H 25.1 H (0.0-1.0) mg/dL Direct Bilirubin 19.0 H (0.0-0.5) mg/dL AST 261 H 221 H (5-37) U/L ALT 126 H 113 H (0-40) U/L Alkaline Phosphatase 226 H 204 H (39-117) U/L Albumin 2.7 L 2.5 L (3.5-5.0) g/dL Imaging CT scan - abdomen: Attestation: I personally reviewed and interpreted this imaging study as follows: (cirrhotic liver, thick small bowel near duodenum) Assessment and Plan (1) Cirrhosis: Qualifiers: Hepatic cirrhosis type: unspecified hepatic cirrhosis Ascites presence: without ascites Qualified Code(s): K74.60 - Unspecified cirrhosis of liver Status: Acute Plan 1/ Cirrhosis from hep c and alcohol use, decompensated possibly from recent enteritis and alcohol use up till 1 month ago PLAN: 1/ hold on steroids due to hep C 2/ high protein and calorie diet, may help reduce nflammation and catabolic state 3/ zinc supplement 4/ Cont with lactulose for HE, check mag, K, PO4 and replenish if low 5/ flagyl and cipor for enteritis, if diarrhea sent c diff and gi stool panel prognosis is guarded - not liver transplnt candidate as just gave up alcoohol Procedures Date of Service Date of Service: 04/30/25
[2025-04-30] MEDS: 0.9 % Sodium Chloride Flush 3 ML SYRINGE IVFLUSH ×3 (08:40→21:44)
--- NOTE | 2025-04-30 08:57 | PHA.MEDREC ---
Pharmacy Consult ? Medication Reconciliation Pharmacy has completed the medication reconciliation. Spoke with patient to confirm medications. Pt was a poor historian and answered yes to almost all medications. Utilized discussion with pt and recent pharmacy claims to confirm medications and complete med rec.
--- NOTE | 2025-04-30 09:10 | PC.NURSE ---
patient verbalizing increase in anxiety - requesting medication. updated CIWA = 6. provider notified/aware. medication administered per provider order. effectiveness pending.
--- NOTE | 2025-04-30 09:34 | PC.NURSE ---
pt becoming increasingly anxious/upset about being in the hallway. requesting to be placed in a room to decrease anxiety. charge histotechnologist made aware. pt also verbalizing i just want to leave. [facility] told me i was going to and they handed me hospice papers so i shouldn't be here anyways. pt requesting to leave AMA. Dr. Hung notified/aware. MD now bedside to assess/speak w/ pt. plan of care ongoing.
--- NOTE | 2025-04-30 09:43 | PC.NURSE ---
patient agreeable to staying/being admitted at this time. per MD, pt now allowed clear liquids. diet order changed. pt given gingerale upon request.
--- NOTE | 2025-04-30 10:38 | PC.NURSE ---
patient continues to rest comfortably in stretcher w/ eyes closed s/p medication administration. seemingly less anxious. pt continues to pend bed assignment at this time. plan of care ongoing.
[2025-04-30 12:42] VITALS: BP 143/88; PULSE 80; RESP 14; TEMP 36.4; O2SAT 95
--- NOTE | 2025-04-30 13:54 | MHC.CM.PN ---
PT LIVES WITH PARENTS GOES TO AND GETS HIS METHADONE FROM [facility]..PT WILL [facility]SPORT[facility] HOME
--- NOTE | 2025-04-30 14:16 | PM.EVENT ---
Event Note Date of Service: 04/30/25 Event Note: Chart reviewed patient examined. Agree with history and physical and plan as outlined by night float. Appreciate GI input Time Spent With Patient Time: Total time managing care of this patient today ____ minutes.
--- NOTE | 2025-04-30 14:17 | PC.NURSE ---
This RN attempted to call Jihan to verify Methadone dose. Pt reports he takes 80mg. Message left on VM, awaiting to hear back at this time.
[2025-04-30 14:55] VITALS: BP 134/77; PULSE 80; RESP 17; TEMP 36.6; O2SAT 96
--- NOTE | 2025-04-30 15:45 | HE.PHANOTE ---
Methadone verified franchesca hastings last dose 80 mg 04/29/25 @11:37
[2025-04-30] MEDS: methADONE HCl 20 MG/2 ML ORAL.CONC 80 MG PO (17:08)
[2025-04-30 18:22] VITALS: BP 110/77; PULSE 75; RESP 14; TEMP 36.4; O2SAT 94
[2025-04-30 20:00] VITALS: BP 134/71; PULSE 67; RESP 18; TEMP 36.3; O2SAT 96
[2025-04-30 20:16] VITALS: BMI 36.6
--- NOTE | 2025-04-30 22:36 | PC.NURSE ---
Pt refusing bed alarm at this time
[2025-05-01 02:56] VITALS: BP 116/70; PULSE 77; RESP 17; TEMP 35.9; O2SAT 93
[2025-05-01 06:25] LABS: NRBC Abs Auto 0.000 X10*3/uL (0.0-0.012); NRBC Pct Auto 0.0 /100WBC (0.0-0.2); Red Blood Count 4.22 X10*6/uL (4.60-5.80)
[2025-05-01 06:27] LABS: Hematocrit 39.8 % (42.0-52.0); Hemoglobin 13.6 g/dl (14.0-18.0); Imm Gran Abs Auto 0.05 X10*3/uL (0.00-0.03); Imm Gran Pct Auto 0.9 % (0.0-0.4); Lymphocytes Absolute Auto 1.3 X10*3/uL (1.2-4.9); Mean Corpuscular HGB Conc 34.2 g/dl (31.0-36.0); Mean Corpuscular Hemoglobin 32.2 pg (27.0-33.0); Mean Corpuscular Volume 94.3 fL (80.0-98.0); Platelet Count 68 X10*3/uL (160-400); White Blood Count 5.4 X10*3/uL (4.8-10.8)
[2025-05-01 07:02] LABS: Alanine Aminotransferase 129 U/L (0-40); Albumin Level 2.8 g/dL (3.5-5.0); Alkaline Phosphatase 231 U/L (39-117); Anion Gap 13 (12-20); Aspartate Amino Transferase 264 U/L (5-37); Blood Urea Nitrogen 8 mg/dL (9-16); Calcium 7.9 mg/dL (8.4-10.2); Carbon Dioxide 32 mmol/L (22-29); Chloride 98 mmol/L (96-108); Creatinine Clr Calc Pharmacy 248.0; Estimated Glomerular Filt Rate > 60; Potassium 2.9 mmol/L (3.3-5.1); Sodium 140 mmol/L (135-145); Total Protein 6.9 g/dL (6.5-8.0)
[2025-05-01 07:16] LABS: Ammonia 77 umol/L (13-55)
[2025-05-01 07:54] VITALS: BP 113/58; PULSE 75; RESP 12; TEMP 36.5; O2SAT 92
[2025-05-01 09:30] VITALS: BP 133/66; PULSE 87; O2SAT 96
[2025-05-01] MEDS: methADONE HCl 20 MG/2 ML ORAL.CONC 80 MG PO (09:39)
[2025-05-01] MEDS: 0.9 % Sodium Chloride Flush 3 ML SYRINGE IVFLUSH ×3 (09:45→20:27)
[2025-05-01] MEDS: Potassium Chloride Packet 20 MEQ PACKET 40 MEQ PO ×2 (11:13→20:27)
[2025-05-01 14:45] VITALS: BP 117/56; PULSE 76; O2SAT 92
--- NOTE | 2025-05-01 14:51 | P.PNIM_ITS ---
Subjective Subjective Date of Service: 05/01/25 Interval History: No acute issues overnight. Total bili 29.9.. No indication for steroids given untreated hep C Review of Systems Denies chest pain Denies shortness of breath Denies nausea vomiting diarrhea Denies fever chills Physical Exam 2 Vital Signs: Vital Signs: Last Vital Signs Temp 97.7 F 05/01/25 07:54 Pulse 76 05/01/25 14:45 Resp 12 05/01/25 07:54 BP 117/56 L 05/01/25 14:45 Pulse Ox 92 05/01/25 14:45 O2 Del Method Room Air 05/01/25 14:45 BMI result Body Mass Index 36.6 Const: Other: Awake alert no acute distress Resp: Other: Clear to auscultation bilaterally no rales rhonchi or wheezes Cardio: Other: No S4; positive S1-S2; no S3 murmurs rubs or gallops GI: Other: Soft nontender nondistended normoactive bowel sounds Skin: Other: Icteric Extrem: Other: No edema bilateral Objective Data Active Medications Albuterol/Ipratropium (Albuterol/Iprat 2.5/0.5mg 3 Ml Ampul.Neb) 3 ml INHALE Q4H PRN PRN Reason: Shortness of Breath/Wheezing Clonidine HCl (Clonidine Hcl 0.1 Mg Tablet) 0.1 mg PO TID [facility]; Protocol Last Admin: 05/01/25 14:49 Dose: 0.1 mg Documented By: CATALINA Furosemide (Furosemide 40 Mg Tablet) 40 mg PO DAILY [facility]; Protocol Last Admin: 05/01/25 09:39 Dose: 40 mg Documented By: CATALINA Gabapentin (Gabapentin 400 Mg Capsule) 800 mg PO TID [facility] Last Admin: 05/01/25 14:48 Dose: 800 mg Documented By: CATALINA Lactulose (Lactulose 20 Gm/30 Ml Solution) 40 gm PO TID [facility] Last Admin: 05/01/25 14:48 Dose: Not Given Documented By: CATALINA Non-Admin Reason: Patient Refused Levofloxacin (Levofloxacin 500 Mg Tablet) 500 mg PO Q24H [facility] Last Admin: 04/30/25 17:08 Dose: 500 mg Documented By: LORENA Lorazepam (Lorazepam 1 Mg Tablet) 1 mg PO BID PRN PRN Reason: Anxiety, mild Magnesium Oxide (Magnesium Oxide 400 Mg Tablet) 400 mg PO DAILY [facility] Last Admin: 05/01/25 09:38 Dose: 400 mg Documented By: CATALINA Melatonin (Melatonin 3 Mg Tablet) 6 mg PO BEDTIME PRN PRN Reason: Insomnia Methadone HCl (Methadone Hcl 20 Mg/2 Ml Oral.Conc) 80 mg PO DAILY [facility] Last Admin: 05/01/25 09:39 Dose: 80 mg Documented By: CATALINA Co-signed By: MARIO Metronidazole (Metronidazole 500 Mg Tablet) 500 mg PO Q8H [facility] Last Admin: 05/01/25 14:49 Dose: 500 mg Documented By: CATALINA Morphine Sulfate (Morphine Sulfate 4 Mg/Ml Cartridge) 4 mg IVPUSH Q4H PRN; Protocol PRN Reason: Pain, Severe (Pain Scale 7-10) Ondansetron HCl (Ondansetron Hcl 4 Mg/2 Ml Vial) 4 mg IVPUSH Q8H PRN PRN Reason: Nausea and Vomiting Potassium Chloride (Potassium Chloride Packet 20 Meq Packet) 40 meq PO BID [facility] Stop: 05/02/25 09:01 Last Admin: 05/01/25 11:13 Dose: 40 meq Documented By: CATALINA Rifaximin (Rifaximin 550 Mg Tablet) 550 mg PO BID [facility] Last Admin: 05/01/25 09:38 Dose: 550 mg Documented By: CATALINA Sertraline HCl (Sertraline Hcl 100 Mg Tablet) 100 mg PO DAILY [facility] Last Admin: 05/01/25 09:39 Dose: 100 mg Documented By: CATALINA Sodium Chloride (0.9 % Sodium Chloride Flush 3 Ml Syringe) [facility] Last Admin: 05/01/25 09:45 Dose: 3 ml Documented By: CATALINA Tamsulosin HCl (Tamsulosin Hcl 0.4 Mg Capsule) 0.4 mg PO DAILY [facility] Last Admin: 05/01/25 09:38 Dose: 0.4 mg Documented By: CATALINA Thiamine HCl (Thiamine Hcl 100 Mg Tablet) 200 mg PO DAILY [facility] Last Admin: 05/01/25 09:38 Dose: 200 mg Documented By: CATALINA Labs 05/01/25 05:52 05/01/25 05:52 Labs: Laboratory Results - last 24 hr 05/01/25 05:52 MCV 94.3 MCH 32.2 MCHC 34.2 RDW 20.3 H Plt Count 68 L MPV 10.1 Immature Gran % (Auto) 0.9 H Neut % (Auto) 67.4 Lymph % (Auto) 23.2 Kershaw % (Auto) 7.0 Eos % (Auto) 1.3 Baso % (Auto) 0.2 Lymph # (Auto) 1.3 [place]haw # (Auto) 0.4 Eos # (Auto) 0.1 Baso # (Auto) 0.0 Abs Immat Gran (auto) 0.05 H Absolute Neuts (auto) 3.7 Absolute Nucleated RBC 0.000 Nucleated RBC % (auto) 0.0 Anion Gap 13 Estim Creat Clear Calc 248.0 Estimated GFR > 60 Fasting Glucose 71 Calcium 7.9 L Total Bilirubin 29.9 H AST 264 H ALT 129 H Alkaline Phosphatase 231 H Ammonia 77 H Total Protein 6.9 Albumin 2.8 L Assessment and Plan (1) Alcoholic cirrhosis of liver with ascites: Status: Acute Plan Patient is a 34-year-old male with past medical history cirrhosis of the liver, hepatic steatosis, end-stage liver disease with portal venous hypertension, substance use disorder on methadone, hepatitis-C (no tx initiated per patient) is being admitted status post unwitnessed fall with known end-stage liver failure. and patient was told he has less than a 6 month prognosis. 1. Decompensated liver failure -GI consulted... Suggest transferred to [facility] for questionable liver transplant -lactulose 30 g TID; rifaximin 550 BID -advance diet -trend LFTs/ammonia -no indication for steroids as patient has untreated hep C 2.Enteritis Empiric Levaquin/Flagyl Stool panel ordered No diarrhea currently Antiemtics prn 3. Substance abuse -addiction Medicine consult appreciated -continue current methadone dosing Full Code status Quality Stroke Does the patient have a stroke diagnosis?: No Reason for No Anti-thrombotic by Day Two: Contraindicated (Thrombocytopenia) VTE Prior VTE?: No VTE Risk Level:: Medical - moderate - high VTE Device Contraindication: N/A - Device Ordered VTE Drug Contraindication: Treatment Not Tolerated
--- NOTE | 2025-05-01 14:58 | PC.NURSE ---
When entering patient room to give scheduled medications, patient appeared to be sleeping with eyes closed, patient opened eyes to voice, after repeating name twice. Patient appears somnolent, eyes half open, vague in conversation, speech appears drowsy. Provider Anabell notified of patient requesting pain medication but concern for administering due to somnolence. Provider Anabell also notified of patient refusal for lactulose, patient reported 3 bowel movements today.
[2025-05-01 15:55] VITALS: BP 115/61; PULSE 88; RESP 12; TEMP 37; O2SAT 93
--- NOTE | 2025-05-01 17:01 | PC.NURSE ---
Patient more awake and alert, expressing having anxiety. Without prompting patient started talking about how he might be getting a liver transplant , patient then started expressing how he'd rather have it go to a kid and feels guilty about that. He also discussed being nervous about surgery because he has never had it before. This nurse allowed patient to express feelings and provided reassurance if needed.
[2025-05-01 19:16] VITALS: BP 138/54; PULSE 102; RESP 18; TEMP 36.1; O2SAT 99
[2025-05-02 04:00] VITALS: BP 121/61; PULSE 81; RESP 18; TEMP 36.3; O2SAT 96
[2025-05-02 07:34] LABS: MANUAL DIFF FLAG NO
[2025-05-02 07:37] LABS: Hematocrit 36.2 % (42.0-52.0); Hemoglobin 12.3 g/dl (14.0-18.0); Imm Gran Abs Auto 0.03 X10*3/uL (0.00-0.03); Imm Gran Pct Auto 0.8 % (0.0-0.4); Lymphocytes Absolute Auto 1.0 X10*3/uL (1.2-4.9); Mean Corpuscular HGB Conc 34.0 g/dl (31.0-36.0); Mean Corpuscular Hemoglobin 32.4 pg (27.0-33.0); Mean Corpuscular Volume 95.3 fL (80.0-98.0); NRBC Abs Auto 0.000 X10*3/uL (0.0-0.012); NRBC Pct Auto 0.0 /100WBC (0.0-0.2); Red Blood Count 3.80 X10*6/uL (4.60-5.80); White Blood Count 3.6 X10*3/uL (4.8-10.8)
[2025-05-02 07:41] LABS: Platelet Count 60 X10*3/uL (160-400)
[2025-05-02 07:47] LABS: Ammonia 69 umol/L (13-55)
[2025-05-02 08:00] VITALS: BP 133/66; PULSE 86; RESP 18; TEMP 36.3; O2SAT 95
[2025-05-02 08:07] LABS: Alanine Aminotransferase 110 U/L (0-40); Albumin Level 2.5 g/dL (3.5-5.0); Alkaline Phosphatase 220 U/L (39-117); Anion Gap 13 (12-20); Aspartate Amino Transferase 237 U/L (5-37); Blood Urea Nitrogen 13 mg/dL (9-16); Calcium 8.0 mg/dL (8.4-10.2); Carbon Dioxide 28 mmol/L (22-29); Chloride 97 mmol/L (96-108); Creatinine Clr Calc Pharmacy 193.3; Estimated Glomerular Filt Rate > 60; Potassium 2.9 mmol/L (3.3-5.1); Sodium 135 mmol/L (135-145); Total Protein 6.2 g/dL (6.5-8.0)
[2025-05-02] MEDS: Potassium Chloride ER 20 MEQ TAB.ER.PRT 80 MEQ PO ×2 (08:49→20:19)
[2025-05-02] MEDS: methADONE HCl 20 MG/2 ML ORAL.CONC 80 MG PO (08:50)
[2025-05-02 15:16] VITALS: BP 113/61; PULSE 88; RESP 18; TEMP 36.3; O2SAT 92
[2025-05-02] MEDS: 0.9 % Sodium Chloride Flush 3 ML SYRINGE IVFLUSH ×2 (15:44→20:21)
[2025-05-02 20:00] VITALS: BP 114/62; PULSE 96; RESP 17; TEMP 36.2; O2SAT 95
[2025-05-02 20:20] VITALS: BP 114/62
[2025-05-03 04:00] VITALS: BP 112/68; PULSE 79; RESP 17; TEMP 36.3; O2SAT 95
[2025-05-03 06:00] LABS: MANUAL DIFF FLAG NO
[2025-05-03 06:17] LABS: Hematocrit 34.6 % (42.0-52.0); Hemoglobin 11.8 g/dl (14.0-18.0); Imm Gran Abs Auto 0.02 X10*3/uL (0.00-0.03); Imm Gran Pct Auto 0.6 % (0.0-0.4); Lymphocytes Absolute Auto 1.0 X10*3/uL (1.2-4.9); Mean Corpuscular HGB Conc 34.1 g/dl (31.0-36.0); Mean Corpuscular Hemoglobin 32.5 pg (27.0-33.0); Mean Corpuscular Volume 95.3 fL (80.0-98.0); NRBC Abs Auto 0.000 X10*3/uL (0.0-0.012); NRBC Pct Auto 0.0 /100WBC (0.0-0.2); Red Blood Count 3.63 X10*6/uL (4.60-5.80); White Blood Count 3.3 X10*3/uL (4.8-10.8)
[2025-05-03 06:18] LABS: Alanine Aminotransferase 98 U/L (0-40); Albumin Level 2.4 g/dL (3.5-5.0); Alkaline Phosphatase 225 U/L (39-117); Anion Gap 9 (12-20); Aspartate Amino Transferase 222 U/L (5-37); Blood Urea Nitrogen 12 mg/dL (9-16); Calcium 8.0 mg/dL (8.4-10.2); Carbon Dioxide 27 mmol/L (22-29); Chloride 106 mmol/L (96-108); Creatinine Clr Calc Pharmacy 184.0; Estimated Glomerular Filt Rate > 60; Platelet Count 57 X10*3/uL (160-400); Potassium 3.9 mmol/L (3.3-5.1); Sodium 138 mmol/L (135-145); Total Protein 6.0 g/dL (6.5-8.0)
[2025-05-03 07:36] VITALS: BP 106/59; PULSE 84; RESP 18; TEMP 36.3; O2SAT 95
[2025-05-03] MEDS: methADONE HCl 20 MG/2 ML ORAL.CONC 80 MG PO (08:31)
[2025-05-03] MEDS: Potassium Chloride ER 20 MEQ TAB.ER.PRT 80 MEQ PO (08:33)
--- NOTE | 2025-05-03 12:32 | PM.DS ---
DS: Providers Provider Date of Service: 05/03/25 Date of admission: 04/30/25 04:10 Date of discharge: 05/03/25 Primary care physician: Stephen Biggs MD Consults: 04/30/25 04:24 Consult to Gastroenterology Routine Consulting Provider: Conrad Herrera Reason for consultation: liver failure Has provider been notified: No 04/30/25 05:01 Consult to Case Management Routine Comment: Support for end-stage renal disease with less than 04/30/25 08:45 Addiction Medicine Provider Stat Consulting Provider: Addiction Covering Reason for consultation: methadone Has provider been notified: No DS: Diagnosis Discharge Diagnosis (1) Alcoholic cirrhosis of liver with ascites: Status: Acute DS: Summary Hospital Course Hospital Course: 34-year-old male with past medical history cirrhosis of the liver, hepatic steatosis, end-stage liver disease with portal venous hypertension, substance use disorder on methadone, hepatitis-C (no tx initiated per patient) was driven to the emergency department by his father after being found on the floor of the for your at home. Patient had some bleeding that arose from the forehead likely due to the fact that he has liver failure with very low platelet count of 65,000. Patient was responding appropriately and with the assistance was able to get to the car so patient could be driven into the emergency department. Patient arrived and was jaundiced in the skin in the sclera. Abdomen grossly distended and firm. Noted tenderness with exam as well. Patient has no indication of head trauma or cervical spine injury noting the unwitnessed fall. Head CT and CT of the cervical spine were not completed in the ED based on providers clinical exam. Hospital course Admitted to general medical floor. Observed on CIWA scale with phenobarb protocol no evidence of withdrawal. Consult placed to GI; thought to have decompensated cirrhosis from combination of untreated hepatitis-C and continued alcohol use. Steroids were contraindicated secondary to untreated hepatitis-C. Call was placed to [facility] transplant team. Spoke with assistant attorney general who who stated after review patient had multiple admissions including [facility] for alcohol-related consequences over the course of this year. Given such in the fact that he has only been abstained for 30 days he is not a candidate for transplant. She requested call back if he has 3 months sobriety. At this point in time he is medically acceptable for discharge and is instructed to follow up with Dr. Hernandez for treatment of his hepatitis-C and to abstain from alcohol. Seen by addiction Medicine; options reviewed. He understands that continued drinking we will meet his device Time Attestation Discharge Coordination Time (in mins): 35 Quality: Safe Use of Opioids Does Pt have an Active Cancer Diagnosis on the Problem List?: No Quality: Stroke Does the patient have a stroke diagnosis?: No Physical Exam Vital Signs: Vital Signs: Last Vital Signs Temp 97.4 F 05/03/25 07:36 Pulse 84 05/03/25 07:36 Resp 18 05/03/25 07:36 BP 106/59 L 05/03/25 07:36 Pulse Ox 95 05/03/25 07:36 O2 Del Method Room Air 05/03/25 07:36 BMI result Body Mass Index 36.6 Const: Other: Awake alert no acute distress Resp: Other: Clear to auscultation bilaterally no rales rhonchi or wheezes Cardio: Other: No S4; positive S1-S2; no S3 murmurs rubs or gallops GI: Other: Soft nontender nondistended normoactive bowel sounds Skin: Other: Icteric Extrem: Other: No edema bilateral DS: Data Data Completed and Pending Completed studies during hospitalization [Text1]: Procedures Detoxification Services for Substance Abuse Treatment (12/13/24) Labs on day of discharge: Laboratory Results - last 24 hr 05/03/25 05:21 WBC 3.3 L RBC 3.63 L Hgb 11.8 L Hct 34.6 L MCV 95.3 MCH 32.5 MCHC 34.1 RDW 19.7 H Plt Count 57 L MPV 10.7 Immature Gran % (Auto) 0.6 H Neut % (Auto) 58.0 Lymph % (Auto) 31.3 Edgar % (Auto) 8.9 Eos % (Auto) 0.9 Baso % (Auto) 0.3 Lymph # (Auto) 1.0 L Edgar # (Auto) 0.3 Eos # (Auto) 0.0 Baso # (Auto) 0.0 Abs Immat Gran (auto) 0.02 Absolute Neuts (auto) 1.9 L Absolute Nucleated RBC 0.000 Nucleated RBC % (auto) 0.0 Sodium 138 Potassium 3.9 D Chloride 106 Carbon Dioxide 27 Anion Gap 9 L BUN 12 Creatinine 0.62 Estim Creat Clear Calc 184.0 Estimated GFR > 60 Fasting Glucose 108 H Calcium 8.0 L Total Bilirubin 24.4 H AST 222 H ALT 98 H Alkaline Phosphatase 225 H Total Protein 6.0 L Albumin 2.4 L Discharge Plan Discharge Anticipated Discharge Date/Time: 05/03/25 12:12 Patient Disposition: Home, Self-Care Discharge Diagnosis: Compensated liver failure Referrals: Stephen Biggs MD [Primary Care Provider, Internal Medicine] - 1 Week Discharge Medications: New metronidazole 500 mg Tablet 500 mg PO Q8H Qty: 15 0RF lorazepam 1 mg Tablet 1 mg PO BID PRN (Reason: Anxiety, Mild) Qty: 14 0RF levofloxacin 500 mg Tablet 500 mg PO Q24H Qty: 5 0RF oxycodone 10 mg tablet 10 mg PO Q8H PRN (Reason: pain) Qty: 14 0RF Rx Instructions: Partial Fill upon patient request. Continued furosemide 40 mg tablet 40 mg PO DAILY 90 Days Qty: 90 1RF methadone 10 mg/mL Concentrate 80 mg PO DAILY Rx Instructions: [facility] [phone] clonidine HCl 0.1 mg tablet 0.1 mg PO TID sertraline 100 mg tablet 100 mg PO DAILY thiamine HCl (vitamin B1) 100 mg tablet 200 mg PO DAILY gabapentin 800 mg tablet 800 mg PO TID magnesium oxide 400 mg (241.3 mg magnesium) tablet 400 mg PO DAILY tamsulosin 0.4 mg capsule 0.4 mg PO DAILY melatonin 5 mg Tablet 5 - 10 mg PO BEDTIME PRN (Reason: Sleep) Xifaxan 550 mg Tablet 550 mg PO BID Qty: 60 0RF nicotine 21 mg/24 hr patch 24 hour 1 patch topical DAILY lactulose 10 gram/15 mL solution 60 ml PO TID Linzess 145 mcg capsule 145 mcg PO DAILY Discontinued prednisone 20 mg tablet 40 mg PO DAILY lorazepam 0.5 mg tablet 0.5 mg PO BID Qty: 10 0RF Discharge Orders: Discharge Order (Routine); Ordered 05/03/25 Ordered By: Mathieu Hung Diet: Advance to usual diet Activity on Discharge: As tolerated Stand Alone Forms: Patient Portal Discharge page Print Language: Hebrew Care Plan Goals: Complete course of Levaquin and Flagyl as outlined. Oxycodone as needed for pain Health Concerns: Follow up with GI (Dr. Hernandez). Need to get treatment for your hepatitis-C Plan of Treatment: Avoid alcohol at all cost Assessment: See discharge summary Patient Instructions: Chronic Liver Disease (ED)
--- NOTE | 2025-05-03 12:43 | MHC.CM.PN ---
PT TO DC HOME TODAY VIA PRIVATE TRANSPORT
[2025-05-03 13:58] VITALS: BP 125/68; PULSE 87; RESP 17; TEMP 36.3; O2SAT 93
== END 2025-05-03 14:03 | disposition home or self-care (01) | DRG 280 ==
LOC: HO.ED 04-30 04:10 → HO.EDOVER 04-30 05:39 → HO.S3 04-30 19:06
PROVIDERS: Nurse Practitioner Family; Admitting Provider Student in an Organized Health Care Education/Training Program; Emergency Provider Emergency Medicine; PCP Internal Medicine; Visit Provider Hospitalist
DX: K70.30 Alcoholic cirrhosis of liver without ascites (principal); D69.6 Thrombocytopenia, unspecified; K76.6 Portal hypertension; E72.20 Disorder of urea cycle metabolism, unspecified; K72.00 Acute and subacute hepatic failure without coma; F10.20 Alcohol dependence, uncomplicated; W10.9XXA Fall (on) (from) unspecified stairs and steps, initial encounter; F11.20 Opioid dependence, uncomplicated; B19.20 Unspecified viral hepatitis C without hepatic coma; D73.2 Chronic congestive splenomegaly; F31.9 Bipolar disorder, unspecified; Z20.822 Contact with and (suspected) exposure to COVID-19; Z79.899 Other long term (current) drug therapy
CPT/HCPCS: 36415; 70450; 74177; 80048; 80053; 80076; 80307; 82140; 83690; 83735; 85025; 85027; 85610; 87637; 99285; J2270; J2405; J3360; Q9967; S9485

== ENCOUNTER → 2025-04-29 20:50 | Outpatient (BNV) | payer OTHER, SELFPAY | PROVIDERS: PCP Internal Medicine; Visit Provider Radiology Diagnostic Radiology | DX: S09.90XA Unspecified injury of head, initial encounter (principal); W19.XXXA Unspecified fall, initial encounter | CPT/HCPCS: 70450 ==

== ENCOUNTER → 2025-04-30 02:30 | Outpatient (BNV) | payer OTHER, SELFPAY | PROVIDERS: Emergency Provider Emergency Medicine; PCP Internal Medicine; Visit Provider General Practice | DX: K74.60 Unspecified cirrhosis of liver (principal); K76.6 Portal hypertension | CPT/HCPCS: 74177 ==

== ENCOUNTER → 2025-04-30 04:10 | Outpatient (BNV) | payer OTHER, SELFPAY | PROVIDERS: Admitting Provider Student in an Organized Health Care Education/Training Program; Emergency Provider Emergency Medicine; PCP Internal Medicine; Visit Provider Internal Medicine Gastroenterology | DX: K70.30 Alcoholic cirrhosis of liver without ascites (principal) | CPT/HCPCS: 99232 ==

== ENCOUNTER → 2025-04-30 04:10 | Outpatient (BNV) | payer OTHER, SELFPAY | PROVIDERS: Admitting Provider Student in an Organized Health Care Education/Training Program; Emergency Provider Emergency Medicine; PCP Internal Medicine; Visit Provider Nurse Practitioner Family | DX: K70.31 Alcoholic cirrhosis of liver with ascites (principal) | CPT/HCPCS: 99223; 99232; 99239; 99499 ==

== ENCOUNTER 2025-05-22 23:55 | Inpatient (IN) | payer OTHER, SELFPAY ==
--- NOTE | ~2025-05-22 | CT_ITS ---
CLINICAL HISTORY: Fall; Head Strike; EtOH CT cervical spine without contrast Comparison: None provided Findings: Normal vertebral body alignment. Mild degenerative changes at C4-C5. No acute fractures or dislocations. Visualized intracranial contents are unremarkable. Soft tissues of the neck are normal. No consolidation or effusion at the lung apices. IMPRESSION: No acute findings. This document has been electronically signed by: Michael Smith MD on 05/23/2025 05:44:38
--- NOTE | ~2025-05-22 | CT_ITS ---
CLINICAL HISTORY: Fall; Head Strike; EtOH CT head without contrast Comparison: 04/29/2025 Findings: No intra-axial mass, midline shift, hydrocephalus, or acute hemorrhage. Similar patchy low-density in the periventricular white matter most pronounced within the left frontoparietal regions The visualized paranasal sinuses and mastoid air cells are normal. The orbits are within normal limits. There is no acute fracture. IMPRESSION: 1. No acute intracranial findings. Similar chronic changes. This document has been electronically signed by: Michael Smith MD on 05/23/2025 05:44:28
--- NOTE | ~2025-05-22 | CT_ITS ---
CLINICAL HISTORY: N V; RUQ Tenderness; Hx Alcoholic Cirrhosis CT abdomen and pelvis with contrast Comparison: CT - CT ABDOMEN PELVIS W IV CON - 05/23/25 03:[address]/SR - CT ABDOMEN PELVIS W IV CON - 04/30/25 02:53 EDT Findings: No consolidation or effusion. Symmetric gynecomastia. Nodular liver with enlarged spleen. The gallbladder, adrenal glands, pancreas, kidneys, ureters and bladder are within normal limits. Normal appendix. Moderate fecal retention throughout the colon. No bowel obstruction, free air, free fluid, abscess or adenopathy. No acute osseous finding. Impression: No definite acute process. Cirrhosis with sequelae of portal venous hypertension again noted. Fecal retention throughout the colon. This document has been electronically signed by: Michael Smith MD on 05/23/2025 05:45:18
[2025-05-23] VITALS (9 sets, daily range): BP systolic 98–118; BP diastolic 50–68; PULSE 64–84; RESP 12–16; TEMP 36.1–36.8; O2SAT 14–99; BMI 36.6
[2025-05-23 00:50] LABS: NRBC Abs Auto 0.000 X10*3/uL (0.0-0.012); NRBC Pct Auto 0.0 /100WBC (0.0-0.2)
[2025-05-23 00:51] LABS: MANUAL DIFF FLAG NO
[2025-05-23 00:52] LABS: Hematocrit 40.0 % (42.0-52.0); Hemoglobin 13.9 g/dl (14.0-18.0); Imm Gran Abs Auto 0.01 X10*3/uL (0.00-0.03); Imm Gran Pct Auto 0.2 % (0.0-0.4); Lymphocytes Absolute Auto 2.1 X10*3/uL (1.2-4.9); Mean Corpuscular HGB Conc 34.8 g/dl (31.0-36.0); Mean Corpuscular Hemoglobin 32.9 pg (27.0-33.0); Mean Corpuscular Volume 94.6 fL (80.0-98.0); Red Blood Count 4.23 X10*6/uL (4.60-5.80)
[2025-05-23 00:55] LABS: Ammonia 124 umol/L (13-55); Platelet Count 71 X10*3/uL (160-400); White Blood Count 5.3 X10*3/uL (4.8-10.8)
[2025-05-23 01:04] LABS: Alanine Aminotransferase 86 U/L (0-40); Albumin Level 2.7 g/dL (3.5-5.0); Alkaline Phosphatase 181 U/L (39-117); Anion Gap 14 (12-20); Aspartate Amino Transferase 222 U/L (5-37); Blood Urea Nitrogen 6 mg/dL (9-16); Calcium 8.7 mg/dL (8.4-10.2); Carbon Dioxide 28 mmol/L (22-29); Chloride 99 mmol/L (96-108); Creatinine Clr Calc Pharmacy 196.8; Estimated Glomerular Filt Rate > 60; Potassium 3.1 mmol/L (3.3-5.1); Sodium 138 mmol/L (135-145); Total Protein 7.2 g/dL (6.5-8.0)
--- OUTSIDE RECORDS SUMMARY | 2025-05-23 02:02 | XMS_ITS | Clinical Summary ---
Author Organization [facility] Address [address] [place] [address] Care Team Providers Care Lock Corner Machine Operator Name Role Phone Emelia Ahn GENERAL PRODUCTION WORKER Primary Care Provider [phone] Source Comments PLEASE NOTE, if this patient [...] 12/03/2015 Overview (12/03/2015): Dx as noted in [facility] records; Reportedly followed [facility] 10/23/08. H/O: substance abuse ([facility]) 11/27/2015 Overview (11/27/2015): Alcohol, Heroin, Xanax and Ativan from streets. Received records from [facility] in [place] where he was admitted for detox 07/2015: Court ordered treatment, had felony charges for drugs. Reportedly he used suboxone in the past but was selling mostly?. He was treated in detox with protocol( also including Hydroxyzine, clonidine, keppra prophylaxis, Remeron, Trazodone prn, Subutex) Depression with anxiety 11/08/2015 Overview (12/03/2015): Inconsistent History. Says that he is now Following with at [facility], [facility]. He brought a letter from his Clinical process supervisor at [facility] suggesting that he will benefit from Pharmacotherapy. Per [facility] records prior to 2012, he was on Buspar, Trazodone, Effexor, Clonidine, Ativan. Smoking 11/08/2015 Immunizations Immunization Administration Dates Next Due DTAP (DAPTACEL),5 PERTUSSIS ANTIGENS ,08/05/1992,1991,08/21 HEP B, PED/ADOL ([id number]/RECOMBIVAX-PEDS) 06/11/2004,04/16/2003 Hib (PRP-OMP) (PedvaxHIB) 1991,1991 History Of [...] Plan of Treatment Not on file Insurance [facility] Member Subscriber Plan / Payer (Ef fective 2015-Present) Name:LUCIA RUSSELL Relation to Subscriber:Self Name:Lucia Russell Payer ID:[id number] (NAIC) Type:Indemnity Address: [facility] [id number] MEDICAID DENTAL [facility] SAFETY NET DENTAL Care Teams Lock Corner Machine Operator Relationship Specialty Start Date End Date Emelia Ahn FNP [address] [place] [address] PCP - General 12/05/18
--- OUTSIDE RECORDS SUMMARY | 2025-05-23 02:02 | XMS_ITS | Clinical Summary ---
Author Organization [facility] Address [address] [place] [address] Care Team Providers Care Icer Machine Operator Name Role Phone Patient, Has [...] streets. Received records from [facility] in [place] where he was admitted for detox 07/2015: Court ordered treatment, had felony charges for drugs. Reportedly he used suboxone in the past but was selling mostly?. He was treated in detox with protocol( also including Hydroxyzine, clonidine, keppra prophylaxis, Remeron, Trazodone prn, Subutex) Encounters Date Type Department Care Team Description 05/02/2025 Telephone [facility] [address] [place] [id number] Chinyere Baxter MD from Last 3 Months Social History Tobacco Use Types Packs/Day Years [...] Date Last Done Comments HIV Screening 1991 Varicella Vaccines (1 of 2 [...] patients) (1 - 1-dose 75+ series) 2066 Hepatitis C Screening Completed 07/10/2024 , 07/02/2024, 06/21/2024 Insurance [facility] MEDICAID Advance Directives Documents on File Type Date Recorded Patient Chute Boss Expl anation Health Care Proxy 02/08/2024 5:53 PM 2023 * Full Code (Latest Code Status on File) Date Activated Date Inactivated Comments 01/23/2024 5:59 PM 02/16/2024 7:48 PM Healthcare Agents on File Name Relationship Healthcare Agent Relationshi p Communication Reny Nicholas Mother Health Care Agent Care Teams Icer Machine Operator Relationship Specialty Start Date End Date Patient, Has No Pcp Or Ref DO NOT EDIT THIS RECORD VIA PROVIDER ON THE FLY PCP - General Furniture Upholsterer Apprentice 02/21/23
--- NOTE | 2025-05-23 02:05 | ED.GENADULT ---
HPI - General Adult General Chief complaint: General Medical Stated complaint: jaundice + fall + confused Time Seen by Provider: 05/23/25 02:00 Source: patient Mode of arrival: ambulatory Limitations: no limitations History of Present Illness ED Provider: Maximino ROBERTO HPI narrative: The patient is a 34-year-old male with history of chronic alcohol dependency, alcoholic cirrhosis, jaundice, hydrops of the gallbladder, and opioid dependency, presenting to the ED for evaluation of multiple complaints. Patient reports he has been experiencing nausea and vomiting, as well as worsening right upper quadrant abdominal pain. The patient also reports today he was walking past the bottom of the stairs and then woke up on the floor. Patient reports having a headache, believes he struck his head in the fall. The patient admits to drinking alcohol today. Patient states he is followed by [facility], who per the patient advised him he has 6-12 months to live based on his stage of cirrhosis. The patient denies any surgical abdominal history. Related Data Home Medications ?Medication ?Instructions ?Recorded ?Confirmed methadone 10 mg/mL oral concentrate 80 mg PO DAILY 03/03/24 04/30/25 clonidine HCl 0.1 mg tablet 0.1 mg PO TID 12/13/24 04/30/25 gabapentin 800 mg tablet 800 mg PO TID 12/13/24 04/30/25 sertraline 100 mg tablet 100 mg PO DAILY 12/13/24 04/30/25 thiamine HCl (vitamin B1) 100 mg 200 mg PO DAILY 12/13/24 04/30/25 tablet magnesium oxide 400 mg (241.3 mg 400 mg PO DAILY 02/12/25 04/30/25 magnesium) tablet melatonin 5 mg tablet 5 - 10 mg PO BEDTIME PRN Sleep 02/12/25 04/30/25 tamsulosin 0.4 mg capsule 0.4 mg PO DAILY 02/12/25 04/30/25 lactulose 10 gram/15 mL oral 60 ml PO TID 03/28/25 04/30/25 solution linaclotide 145 mcg capsule 145 mcg PO DAILY 03/28/25 04/30/25 (Linzess) nicotine 21 mg/24 hr daily 1 patch topical DAILY 04/30/25 04/30/25 transdermal patch Previous Rx's ?Medication ?Instructions ?Recorded rifaximin 550 mg tablet (Xifaxan) 550 mg PO BID #60 tabs 02/15/25 furosemide 40 mg tablet 40 mg PO DAILY 90 days #90 tabs 04/04/25 levofloxacin 500 mg tablet 500 mg PO Q24H #5 tabs 05/03/25 lorazepam 1 mg tablet 1 mg PO BID PRN Anxiety, Mild #14 05/03/25 tabs metronidazole 500 mg tablet 500 mg PO Q8H #15 tabs 05/03/25 oxycodone 10 mg tablet 10 mg PO Q8H PRN pain #14 tabs 05/03/25 Allergies Allergy/AdvReac Type Severity Reaction Status Date / Time fish derived (fish) Allergy Anaphylaxis Verified 05/23/25 00:26 shellfish derived Allergy Anaphylaxis Verified 05/23/25 00:26 Review of Systems Review of Systems: Yes all other systems are reviewed and are negative PMFSH Past Medical History Medical History (Updated 05/23/25 @ 05:58 by Evi Nunn MD) Liver failure Alcoholic cirrhosis of liver with ascites Cirrhosis Alcohol use disorder, severe, dependence Methadone maintenance therapy patient Cirrhosis Edema Alcohol abuse Increased ammonia level Substance abuse Opiate use Social History Social History Household Members: Family Household Members Other:: brother Housing: House Do you presently have visiting nurse or other home services: No Alcohol intake: current Alcohol intake frequency: former alcohol drinker Alcohol type: hard liquor Comment: refusing alarms Patient Tobacco Use Status: Never used Tobacco Tobacco use type: Cigarette Cigarette Packs Per Day: 1 Cigarettes Per Day: 20.0 e-Cigarette/Vaping Use: Currently Using Advance Directives: Yes Advance Directives on File: Yes Advance Directives Date on File: 02/18/25 Do you have a plan to hurt others: No Plan service: No Physical Exam ED Vital Signs: Vital Signs - 24 hr 05/23/25 00:23 05/23/25 03:35 05/23/25 04:34 Temperature 97.0 F 97.7 F Pulse Rate 84 72 Respiratory Rate 16 16 14 Blood Pressure 100/67 101/55 L Pulse Oximetry 95 95 Oxygen Delivery Method Room Air Room Air BMI result Body Mass Index 36.6 CONSTITUTIONAL: The patient appears chronically ill, otherwise well nourished and in no acute distress. Vital signs as documented. HEAD: Atraumatic, normocephalic. EYES: EOMs grossly intact, pupils equal, icteric sclera bilaterally, conjunctiva clear, no exudate. ENT: Nares patent, no discharge. Airway patent, no audible stridor, visible mucosa is pink and moist without noted lesions. NECK: Trachea is midline, no obvious masses or gross abnormalities. CHEST: Symmetric movement, normal appearance. LUNGS: LS present and CTAB, no w/r/r. Non-labored work of breathing. CARDIAC: Regular Rhythm, S1/S2 appreciated, no murmurs, rubs or gallops. ABDOMEN: Abdomen soft x3 quadrants, marked tenderness to palpation of the right upper and lower quadrants, negative rebound, marked hepatomegaly palpated in the right upper quadrant, no other palpable masses or organomegaly. : Deferred. EXTREMITIES: Normal tone, moves all extremities spontaneously without reported pain. No obvious acute injury or deformity noted. NEURO: Alert and oriented x 2, disoriented to place, patient unable or unwilling to cooperate with the remainder of neurologic exam. Markedly slurred speech with delayed answering to questions. PSYCH: Poor eye contact, slurred speech, with delayed response to questioning. No reported suicidality or homicidality. SKIN: Warm, dry, jaundiced, normal turgor. No rashes noted. Medications Administered Generic Name Dose Route Start Last Admin Trade Name Freq PRN Reason Stop Dose Admin Potassium Chloride 10 meq in 100 mls @ 100 mls/hr 05/23/25 02:30 05/23/25 05:07 Potassium Chloride/H20 IV 05/23/25 06:29 100 mls/hr Q1H LU Administration Discontinued Medications Generic Name Dose Route Start Last Admin Trade Name Freq PRN Reason Stop Dose Admin Sodium Chloride 1,000 mls @ 999 mls/hr 05/23/25 02:30 05/23/25 03:36 Ns IV 05/23/25 03:30 999 mls/hr .Q1H1M LU Administration Iohexol 85 ml 05/23/25 04:30 05/23/25 04:31 Iohexol 350 Mg/Ml 100 Ml Infus..Btl IV 05/23/25 04:31 85 ml ONCE ONE Administration Lactulose 30 gm 05/23/25 02:17 05/23/25 02:48 Lactulose 20 Gm/30 Ml Solution PO 05/23/25 02:18 30 gm ONCE ONE Administration Lorazepam 2 mg 05/23/25 03:59 05/23/25 04:32 Lorazepam 1 Mg Tablet PO 05/23/25 04:00 2 mg ONCE ONE Administration Morphine Sulfate 4 mg 05/23/25 02:17 05/23/25 03:35 Morphine Sulfate 4 Mg/Ml Cartridge IVPUSH 05/23/25 02:18 4 mg ONCE ONE Administration Protocol Ondansetron HCl 4 mg 05/23/25 02:17 05/23/25 03:35 Ondansetron Hcl 4 Mg/2 Ml Vial IVPUSH 05/23/25 02:18 4 mg ONCE ONE Administration Medical Decision Making Medical Decision Making MDM Narrative: 2:26 AM 05/23/2025 (Bakari ROBERTO): The patient is a 34-year-old male with a history of alcoholic cirrhosis of the liver with jaundice and previous admissions for hepatic encephalopathy presenting to the ED alert and oriented x2, disoriented to place and situation. The patient reports drinking alcohol today and then suffering a fall, patient is unable to recall all the events surrounding the fall. Patient reporting headache, right upper quadrant abdominal pain, right lower quadrant abdominal pain, and nausea with vomiting. The patient's exam reveals marked tenderness of the right abdomen, without associated rebound, palpable hepatomegaly in the right upper quadrant. Patient's speech is markedly slurred with delayed response to questioning. The patient's laboratory evaluation shows ammonia level of 124, with ethanol level of 96, remainder of laboratory workup shows no leukocytosis or significant anemia, there is thrombocytopenia at 71,000 and hypokalemia at 3.1, there are no other electrolyte abnormalities. No RANDY. The patient's liver function is markedly abnormal with T bili 9.6, AST 222, ALT 86, alkaline phosphatase 181, and albumin 2.7. The patient will be evaluated with CT head, CT neck, and CT abdomen and pelvis. We will replete potassium via IV as patient is unable to tolerate PO. Additionally we will treat for suspected hepatic encephalopathy with IV fluid hydration, lactulose, and treat the patient's abdominal symptoms with morphine and Zofran. Expect patient will require admission for hepatic encephalopathy and hypokalemia. Of note the patient was recently admitted from 04/29 to 05/03 for alcoholic cirrhosis with ascites. 4:15 AM 05/23/2025 (Bakari ROBERTO): CTs are pending, patient's care signed out to Dr. Evi Nunn. I received sign-out from my colleague FELISA Rausch CT scans of the head cervical spine and abdomen did not show any acute abnormality. Overall, patient does have an elevated ammonia level, getting lactulose, patient is encephalopathic. I discussed the patient with Dr. Cuenca from the Medicine team, patient needs admission Admission/Observation Consideration of admission/observation: Escalation of care including admission/observation considered Lab Data MDM Lab Attestation statement: I reviewed the patient's lab results. 05/23/25 00:43 05/23/25 00:43 Labs: Lab Results 05/23/25 05/23/25 Range/Units 00:43 04:25 WBC 5.3 (4.8-10.8) X10*3/uL RBC 4.23 L (4.60-5.80) X10*6/uL Hgb 13.9 L (14.0-18.0) g/dl Hct 40.0 L (42.0-52.0) % MCV 94.6 (80.0-98.0) fL MCH 32.9 (27.0-33.0) pg MCHC 34.8 (31.0-36.0) g/dl RDW 14.8 (11.0-16.0) % Plt Count 71 L (160-400) X10*3/uL MPV 10.5 (9.4-12.4) fL Immature Gran % (Auto) 0.2 (0.0-0.4) % Neut % (Auto) 51.3 (45-73) % Lymph % (Auto) 40.0 (20-40) % Collin % (Auto) 6.8 (2-11) % Eos % (Auto) 1.3 (0-4) % Baso % (Auto) 0.4 (0-2) % Lymph # (Auto) 2.1 (1.2-4.9) X10*3/uL Collin # (Auto) 0.4 (0.1-1.2) X10*3/uL Eos # (Auto) 0.1 (0.0-0.4) X10*3/uL Baso # (Auto) 0.0 (0.0-0.2) X10*3/uL Abs Immat Gran (auto) 0.01 (0.00-0.03) X10*3/uL Absolute Neuts (auto) 2.7 (2.0-8.3) x10*3/uL Absolute Nucleated RBC 0.000 (0.0-0.012) X10*3/uL Nucleated RBC % (auto) 0.0 (0.0-0.2) /100WBC Sodium 138 (135-145) mmol/L Potassium 3.1 L D (3.3-5.1) mmol/L Chloride 99 (96-108) mmol/L Carbon Dioxide 28 (22-29) mmol/L Anion Gap 14 (12-20) BUN 6 L (9-16) mg/dL Creatinine 0.58 (0.5-1.4) mg/dL Estim Creat Clear Calc 196.8 Estimated GFR > 60 Random Glucose 119 H (60-115) mg/dL Calcium 8.7 D (8.4-10.2) mg/dL Total Bilirubin 9.6 H (0.0-1.0) mg/dL AST 222 H (5-37) U/L ALT 86 H (0-40) U/L Alkaline Phosphatase 181 H (39-117) U/L Ammonia 124 H (13-55) umol/L Total Protein 7.2 (6.5-8.0) g/dL Albumin 2.7 L (3.5-5.0) g/dL Urine Color Dark Yellow Urine Appearance Clear Urine pH 6.5 (5.0-9.0) Ur Specific [place] 1.010 (1.005-1.025) Urine Protein Negative (Neg-Trace) mg/dL Urine Glucose (UA) Negative (Negative) mg/dL Urine Ketones Negative (Negative) mg/dL Urine Blood Negative (Negative) Urine Nitrite Negative (Negative) Ur Leukocyte Esterase Trace H (Negative) Urine RBC 0-2 (0-2) /HPF Urine WBC 0-5 (0-5) /HPF Ur Squamous Epith Cells 0-2 (0-2) /HPF Urine Bacteria None Seen (None Seen) Hyaline Casts 0-2 (0-2) /LPF Urine Opiates Screen Not Detected (Not Detect) Ur Buprenorphine Scrn Not Detected (Not Detect) ng/mL Ur Oxycodone Screen Not Detected (Not Detect) ng/mL Urine Methadone Screen Positive H (Not Detect) ng/mL Urine Fentanyl Screen Not Detected (Not Detect) Ur Barbiturates Screen Not Detected (Not Detect) Ur Phencyclidine Scrn Not Detected (Not Detect) Ur Amphetamines Screen Not Detected (Not Detect) U Benzodiazepines Scrn POSITIVE H (Not Detect) Urine Cocaine Screen Not Detected (Not Detect) U Marijuana (THC) Screen Not Detected (Not Detect) Ethyl Alcohol 96 mg/dL Discharge Plan Discharge Clinical Impression: Chronic liver disease and cirrhosis, Encephalopathy, Multiple falls Patient Disposition: Admitted As Inpatient Print Language: Croatian
[2025-05-23] MEDS: Potassium Chloride/H20 10 MEQ/100 ML PIGGYBACK 100 MEQ IV ×2 (03:35→05:07)
--- NOTE | 2025-05-23 03:56 | PC.NURSE ---
Delay in med administration d/t pt needing an US guided IV line. FELISA Stanton inserted a #20 in the right upper arm. meds given per dec. pt scored a 7 in ciwa- provider notified.
[2025-05-23] MEDS: iohexoL 350 MG/ML 100 ML INFUS..BTL 85 ML IV (04:31)
[2025-05-23 04:35] LABS: Appearance Urine Clear; Glucose Urine UA Negative (Negative); PH 6.5 (5.0-9.0); Specific Gravity - Urine 1.010 (1.005-1.025); UMIC TRIGGER UACC YES
[2025-05-23 04:48] LABS: Cannabinoid Screen Urine Not Detected (Not Detect)
--- NOTE | 2025-05-23 05:55 | PC.NURSE ---
PT agreeable to search of belongings by security. 1 bottle of Ativan in his bag, a vape pen and a lock box that he reports held methadone. PT did not have his burleson with him and therefore tw was not able to verify contents. 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 Mom presented to ED19 and took his medications, lock box and vape pen. Mom left at [phone]
[2025-05-23] MEDS: Potassium Chloride Packet 20 MEQ PACKET 40 MEQ PO (05:59)
--- NOTE | 2025-05-23 06:14 | PC.NURSE ---
pt refusing last 2 bags of K+. Pt states it mccabe in his IV although NS was infusing at the same time. MD made aware of refusal.
--- NOTE | 2025-05-23 06:39 | PM.IMHP ---
History of Present Illness Date of Service: 05/23/25 Attending physician on admission: Maura Hernandez Chief Complaint: fall Patient is a 34-year-old male with a past medical history significant for end-stage liver disease/cirrhosis, hepatitis-C untreated, hydrops of the gallbladder, substance abuse on methadone, and Class 3 obesity who presented to the ED due to jaundice, dizziness and a fall with head strike. Patient is a poor prognosis with end-stage liver disease with continued alcohol abuse. He reports drinking at least 3 times a week still. The patient's mother was unaware of this and reports that she has been monitoring him. Alcohol level on arrival 96. He has a history of substance abuse but reports that he is only using methadone, no additional drug use. He reports nausea and vomiting last night, none currently. He also has right upper quadrant pain. He reports a headache and has bruising on his forehead from his fall. No visual changes. Review of Systems Constitutional: Constitutional: Denies body ache(s), Denies chills, Denies fatigue, Denies fever(s) and Reports headache(s) Eyes: Eyes: Denies change in vision ENT: Reports headache(s), Denies nasal congestion, Denies nasal obstruction and Denies sore throat Cardiovascular: Cardiovascular: Denies chest pain, Denies rapid heart rate, Denies leg edema, Denies lightheadedness and Denies dyspnea Respiratory: Respiratory: Denies chest congestion, Denies cough, Denies dyspnea and Denies wheezing Gastrointestinal: Gastrointestinal: Reports abdominal pain, Denies melena, Denies hematochezia, Denies constipation, Denies GI cramping, Reports nausea, Reports vomiting and Denies hematemesis Genitourinary: Genitourinary: Denies dysuria and Denies urinary urgency Musculoskeletal: Musculoskeletal: Denies myalgias Integumentary/Breasts: Skin/Breast: Denies rash Neurologic: Reports confusion and Reports headache(s) Psychiatric: Psychiatric: Reports confusion Endocrine: Endocrine: Denies fatigue Hematologic/Lymphatic: Hematologic/Lymphatic: Denies easy bleeding and Denies easy bruising Allergic/Immunologic: Allergic/Immunologic: Denies wheezing PMFSH Medical History Liver failure Alcoholic cirrhosis of liver with ascites Cirrhosis Alcohol use disorder, severe, dependence Methadone maintenance therapy patient Cirrhosis Edema Alcohol abuse Increased ammonia level Substance abuse Opiate use Functional capacity: independent ambulation Social History Household Members: Family Household Members Other:: brother Housing: House Do you presently have visiting nurse or other home services: No Alcohol intake: current Alcohol intake frequency: former alcohol drinker Alcohol type: hard liquor Comment: refusing alarms Patient Tobacco Use Status: Never used Tobacco Tobacco use type: Cigarette Cigarette Packs Per Day: 1 Cigarettes Per Day: 20.0 e-Cigarette/Vaping Use: Currently Using Advance Directives: Yes Advance Directives on File: Yes Advance Directives Date on File: 02/18/25 Do you have a plan to hurt others: No Plan service: No Narrative: Smokes 1 pack per day, consuming alcohol a few days a week, on methadone, no additional drug use Meds Allergies Allergy/AdvReac Type Severity Reaction Status Date / Time fish derived (fish) Allergy Anaphylaxis Verified 05/23/25 00:26 shellfish derived Allergy Anaphylaxis Verified 05/23/25 00:26 Active Medications: Current Medications Acetaminophen (Acetaminophen 325 Mg Tablet) 650 mg PO Q6H PRN PRN Reason: Pain, Mild 1-3,fever,headache Calcium Carbonate (Calcium Carbonate 750 Mg Tab.Chew) 750 mg PO Q4H PRN PRN Reason: Heartburn Folic Acid (Folic Acid 1 Mg Tablet) 1 mg PO DAILY LU Stop: 05/26/25 08:59 Lactulose (Lactulose 20 Gm/30 Ml Solution) 60 gm PO TID LU Lorazepam (Lorazepam 1 Mg Tablet) 1 mg PO Q4H PRN; Taper PRN Reason: Alcohol Withdrawal Stop: 05/27/25 06:29 Magnesium Hydroxide (Milk Of Magnesia 30 Ml Oral.Susp) 30 ml PO DAILY PRN PRN Reason: Constipation Melatonin (Melatonin 3 Mg Tablet) 6 mg PO BEDTIME PRN PRN Reason: Insomnia Nicotine Polacrilex (Nicotine Polacrilex 2 Mg Gum) 2 mg BUCCAL Q2H PRN PRN Reason: Nicotine Cravings Ondansetron HCl (Ondansetron Hcl 4 Mg/2 Ml Vial) 4 mg IVPUSH Q8H PRN PRN Reason: Nausea and Vomiting Oxycodone HCl (Oxycodone Hcl Immed Release 5 Mg Tablet) 5 mg PO Q6H PRN PRN Reason: Pain, Severe (Pain Scale 7-10) Rifaximin (Rifaximin 550 Mg Tablet) 550 mg PO BID LU Sodium Chloride (0.9 % Sodium Chloride Flush 3 Ml Syringe) 3 ml IVFLUSH QSHIFT LU Thiamine HCl (Thiamine Hcl 100 Mg Tablet) 100 mg PO DAILY LU Stop: 05/26/25 08:59 Home Medications ?Medication ?Instructions ?Recorded ?Confirmed ?Last Taken ?Type methadone 10 mg/mL oral concentrate 80 mg PO DAILY 03/03/24 04/30/25 04/29/25 11:37 History clonidine HCl 0.1 mg tablet 0.1 mg PO TID 12/13/24 04/30/25 04/28/25 History gabapentin 800 mg tablet 800 mg PO TID 12/13/24 04/30/25 04/28/25 History sertraline 100 mg tablet 100 mg PO DAILY 12/13/24 04/30/25 04/28/25 History thiamine HCl (vitamin B1) 100 mg 200 mg PO DAILY 12/13/24 04/30/25 04/28/25 History tablet magnesium oxide 400 mg (241.3 mg 400 mg PO DAILY 02/12/25 04/30/25 04/28/25 History magnesium) tablet melatonin 5 mg tablet 5 - 10 mg PO BEDTIME PRN Sleep 02/12/25 04/30/25 04/28/25 History tamsulosin 0.4 mg capsule 0.4 mg PO DAILY 02/12/25 04/30/25 04/28/25 History lactulose 10 gram/15 mL oral 60 ml PO TID 03/28/25 04/30/25 04/28/25 History solution linaclotide 145 mcg capsule 145 mcg PO DAILY 03/28/25 04/30/25 04/28/25 History (Linzess) nicotine 21 mg/24 hr daily 1 patch topical DAILY 04/30/25 04/30/25 Unknown History transdermal patch Physical Exam Vital Signs and Narrative: Vital Signs: Last Vital Signs Temp 97.7 F 05/23/25 04:34 Pulse 72 05/23/25 04:34 Resp 14 05/23/25 04:34 BP 101/55 L 05/23/25 04:34 Pulse Ox 95 05/23/25 04:34 O2 Del Method Room Air 05/23/25 04:34 BMI result Body Mass Index 36.6 General: AOx3, no acute distress. HEETN: scleral icterus Resp: CTA bilaterally CVS: S1, S2, RRR GI: +BS, tender RUQ, + distention Skin: Warm, dry Neuro: Cranial nerves II-XII grossly intact bilaterally. Motor grossly intact bilaterally. +asterixis. slow responses Extremities: No pitting edema Psych: Appropriate affect Const: General: confusion Orientation/consciousness: confusion Neuro: General: confusion Results Labs 05/23/25 00:43 05/23/25 00:43 Labs: Laboratory Results - last 24 hr 05/23/25 05/23/25 00:43 04:25 MCV 94.6 MCH 32.9 MCHC 34.8 RDW 14.8 Plt Count 71 L MPV 10.5 Immature Gran % (Auto) 0.2 Neut % (Auto) 51.3 Lymph % (Auto) 40.0 [place] % (Auto) 6.8 Eos % (Auto) 1.3 Baso % (Auto) 0.4 Lymph # (Auto) 2.1 [place] # (Auto) 0.4 Eos # (Auto) 0.1 Baso # (Auto) 0.0 Abs Immat Gran (auto) 0.01 Absolute Neuts (auto) 2.7 Absolute Nucleated RBC 0.000 Nucleated RBC % (auto) 0.0 Anion Gap 14 Estim Creat Clear Calc 196.8 Estimated GFR > 60 Random Glucose 119 H Calcium 8.7 D Total Bilirubin 9.6 H AST 222 H ALT 86 H Alkaline Phosphatase 181 H Ammonia 124 H Total Protein 7.2 Albumin 2.7 L Urine Color Dark Yellow Urine Appearance Clear Urine pH 6.5 Ur Specific [place] 1.010 Urine Protein Negative Urine Glucose (UA) Negative Urine Ketones Negative Urine Blood Negative Urine Nitrite Negative Ur Leukocyte Esterase Trace H Urine RBC 0-2 Urine WBC 0-5 Ur Squamous Epith Cells 0-2 Urine Bacteria None Seen Hyaline Casts 0-2 Urine Opiates Screen Not Detected Ur Buprenorphine Scrn Not Detected Ur Oxycodone Screen Not Detected Urine Methadone Screen Positive H Urine Fentanyl Screen Not Detected Ur Barbiturates Screen Not Detected Ur Phencyclidine Scrn Not Detected Ur Amphetamines Screen Not Detected U Benzodiazepines Scrn POSITIVE H Urine Cocaine Screen Not Detected U Marijuana (THC) Screen Not Detected Ethyl Alcohol 96 Assessment and Plan (1) Hepatic encephalopathy: Status: Acute (2) Multiple falls: Status: Acute (3) Chronic liver disease and cirrhosis: Status: Acute (4) Alcoholic hepatitis: Status: Acute Plan Patient is a 34-year-old male with a past medical history significant for end-stage liver disease/cirrhosis, hepatitis-C untreated, hydrops of the gallbladder, substance abuse on methadone, and Class 3 obesity who presented to the ED due to jaundice, dizziness and a fall with head strike. hepatic encephalopathy with multiple falls - ammonia 124 - LFTs elevated, near baseline - alcohol level 96 - head CT negative, c-spine CT negative - given lactulose in ED, continue 60gm TID and rifixamin 550mg BID - follow ammonia level alcoholic liver disease/hepatitis - LFTs near baseline, elevated. RUQ pain and jaundice - steroids contraindicated due to untreated hep C per last admission - A/P CT without acute process, cirrhosis with portal HTN - follow LFTs - monitor CIWA scores, not currently in withdrawal - addiction med consult - seizure precautions - folate, thiamine, multivitamin thrombocytopenia, chronic - PLT 71, at baseline - monitor CBC hypokalemia - K 3.1 - given 40meq PO in ED - monitor BMP, check mag level substance use - [facility], will need dose confirmed class 3 obesity - BMI 36.6 - weight loss encouraged tobacco use disorder - smoking cessation encouraged - nicotine gum per pt request med rec pending DNR/DNI - discussed with pt and his mother on the phone VTE prophy: pneumoboots Pt with hepatic encephalopathy with multiple falls secondary to alcoholic liver disease, requiring admission for at least 2 midnights stay for improvement of encephalopathy and monitoring. Quality Stroke Does the patient have a stroke diagnosis?: No VTE Prior VTE?: No VTE Risk Level:: Medical - moderate - high VTE Device Contraindication: N/A - Device Ordered VTE Drug Contraindication: Treatment Not Indicated
[2025-05-23 07:03] LABS: Magnesium 1.7 mg/dL (1.6-2.6)
[2025-05-23 08:28] LABS: Ammonia 99 umol/L (13-55)
--- NOTE | 2025-05-23 09:19 | PHA.MEDREC ---
Pharmacy Consult ? Medication Reconciliation Pharmacy has completed the medication reconciliation. Pt was un-arousable in ED and could not answer questions. Used pharmacy claims and discharge list from 05/03/25 visit to confirm meds. Everything matched, but he has been filling Folic Acid and Spironolactone recently that was not noted on previous visit.
--- NOTE | 2025-05-23 09:42 | HO.PM.IMPN ---
Subjective Subjective Date of Service: 05/23/25 Interval History: Patient resting in bed, somnolent. Continues to report right upper quadrant abdominal pain. Labs reviewed, continues with hypokalemia, refused last dose of IV and p.o. KCl that was ordered this morning, additional 40 mEq was ordered. Ammonia level continues to be elevated 99, taking lactulose. Per nursing no acute events overnight Review of Systems Denies any shortness of breath or chest pain, denies cough, reports right upper quadrant abdominal pain, Denies hematochezia, melena, dysuria, muscle aches. Physical Exam Exam: Exam: General: AOx3, no acute distress. Somnolent HEETN: scleral icterus Resp: CTA bilaterally CVS: S1, S2, RRR GI: +BS, tender RUQ, + distention. Skin: Warm, dry Neuro: Cranial nerves II-XII grossly intact bilaterally. Motor grossly intact bilaterally. +asterixis. slow responses Extremities: No pitting edema Psych: Appropriate affect Vital Signs: Vital Signs: Last Vital Signs Temp 98.2 F 05/23/25 08:00 Pulse 74 05/23/25 08:00 Resp 14 05/23/25 08:00 BP 110/55 L 05/23/25 08:00 Pulse Ox 99 05/23/25 08:00 O2 Del Method Room Air 05/23/25 08:00 BMI result Body Mass Index 36.6 Objective Data Active Medications Acetaminophen (Acetaminophen 325 Mg Tablet) 650 mg PO Q6H PRN PRN Reason: Pain, Mild 1-3,fever,headache Calcium Carbonate (Calcium Carbonate 750 Mg Tab.Chew) 750 mg PO Q4H PRN PRN Reason: Heartburn Folic Acid (Folic Acid 1 Mg Tablet) 1 mg PO DAILY LU Stop: 05/26/25 08:59 Hydroxyzine HCl (Hydroxyzine Hcl 25 Mg Tablet) 25 mg PO Q6H PRN PRN Reason: Anxiety Lactulose (Lactulose 20 Gm/30 Ml Solution) 60 gm PO TID LU Lorazepam (Lorazepam 1 Mg Tablet) 1 mg PO Q4H PRN; Taper PRN Reason: Alcohol Withdrawal Stop: 05/27/25 06:29 Magnesium Hydroxide (Milk Of Magnesia 30 Ml Oral.Susp) 30 ml PO DAILY PRN PRN Reason: Constipation Melatonin (Melatonin 3 Mg Tablet) 6 mg PO BEDTIME PRN PRN Reason: Insomnia Multivitamins/Vitamin C (Multivitamin Tablet) 1 tab PO DAILY [facility] Stop: 05/26/25 08:59 Nicotine Polacrilex (Nicotine Polacrilex 2 Mg Gum) 2 mg BUCCAL Q2H PRN PRN Reason: Nicotine Cravings Ondansetron HCl (Ondansetron Hcl 4 Mg/2 Ml Vial) 4 mg IVPUSH Q8H PRN PRN Reason: Nausea and Vomiting Oxycodone HCl (Oxycodone Hcl Immed Release 5 Mg Tablet) 5 mg PO Q6H PRN PRN Reason: Pain, Severe (Pain Scale 7-10) Rifaximin (Rifaximin 550 Mg Tablet) 550 mg PO BID LU Sodium Chloride (0.9 % Sodium Chloride Flush 3 Ml Syringe) 3 ml IVFLUSH QSHIFT LU Thiamine HCl (Thiamine Hcl 100 Mg Tablet) 100 mg PO DAILY [facility] Stop: 05/26/25 08:59 Labs 05/23/25 00:43 05/23/25 00:43 Labs: Laboratory Results - last 24 hr 05/23/25 05/23/25 05/23/25 00:43 04:25 08:15 MCV 94.6 MCH 32.9 MCHC 34.8 RDW 14.8 Plt Count 71 L MPV 10.5 Immature Gran % (Auto) 0.2 Neut % (Auto) 51.3 Lymph % (Auto) 40.0 [place] % (Auto) 6.8 Eos % (Auto) 1.3 Baso % (Auto) 0.4 Lymph # (Auto) 2.1 [place] # (Auto) 0.4 Eos # (Auto) 0.1 Baso # (Auto) 0.0 Abs Immat Gran (auto) 0.01 Absolute Neuts (auto) 2.7 Absolute Nucleated RBC 0.000 Nucleated RBC % (auto) 0.0 Anion Gap 14 Estim Creat Clear Calc 196.8 Estimated GFR > 60 Random Glucose 119 H Calcium 8.7 D Magnesium 1.7 Total Bilirubin 9.6 H AST 222 H ALT 86 H Alkaline Phosphatase 181 H Ammonia 124 H 99 H Total Protein 7.2 Albumin 2.7 L Urine Color Dark Yellow Urine Appearance Clear Urine pH 6.5 Ur Specific [place] 1.010 Urine Protein Negative Urine Glucose (UA) Negative Urine Ketones Negative Urine Blood Negative Urine Nitrite Negative Ur Leukocyte Esterase Trace H Urine RBC 0-2 Urine WBC 0-5 Ur Squamous Epith Cells 0-2 Urine Bacteria None Seen Hyaline Casts 0-2 Urine Opiates Screen Not Detected Ur Buprenorphine Scrn Not Detected Ur Oxycodone Screen Not Detected Urine Methadone Screen Positive H Urine Fentanyl Screen Not Detected Ur Barbiturates Screen Not Detected Ur Phencyclidine Scrn Not Detected Ur Amphetamines Screen Not Detected U Benzodiazepines Scrn POSITIVE H Urine Cocaine Screen Not Detected U Marijuana (THC) Screen Not Detected Ethyl Alcohol 96 Assessment and Plan (1) Hepatic encephalopathy: Status: Acute Plan Patient is a 34-year-old male with a past medical history significant for end-stage liver disease/cirrhosis, hepatitis-C untreated, hydrops of the gallbladder, substance abuse on methadone, and Class 3 obesity who presented to the ED due to jaundice, dizziness and a fall with head strike. Found to have hepatic encephalopathy. Hepatic encephalopathy with multiple falls Ammonia level 99- Continue lactulose LFTs elevated, near baseline. Follow labs Alcohol level [address] negative, c-spine CT negative Continue lactulose 60gm TID and rifixamin 550mg BID Alcoholic liver disease/hepatitis Evidenced by eleavted LFTs near baseline. RUQ pain and jaundice Steroids contraindicated due to untreated hep C per last admission A/P CT without acute process, cirrhosis with portal HTN-Consult GI Continue CIWA scores, not currently in withdrawal, not scoring Addiction med consult Seizure precautions Continue folate, thiamine, multivitamin Thrombocytopenia, chronic PLT 71, at baseline Follow labs hypokalemia K 3.1 Given replacement in ED Refused one IV and one po dose. Ordered 40 meq time one- Follow labs Magnesium WNL. Substance use Methadone at [facility], will need dose confirmed. Nursing has not heard back from [facility], we will follow up. Addiction medication consult Tobacco use disorder Smoking cessation encouraged Nicotine gum per patient request DNR/DNI - discussed with pt and his mother on the phone VTE prophy: pneumoboots Pt with hepatic encephalopathy with multiple falls secondary to alcoholic liver disease, requiring admission for at least 2 midnights stay for improvement of encephalopathy and monitoring. Quality Stroke Does the patient have a stroke diagnosis?: No VTE Prior VTE?: No VTE Risk Level:: Medical - moderate - high VTE Device Contraindication: N/A - Device Ordered VTE Drug Contraindication: Treatment Not Indicated
[2025-05-23] MEDS: 0.9 % Sodium Chloride Flush 3 ML SYRINGE IVFLUSH (10:44)
[2025-05-23] MEDS: Potassium Chloride ER 20 MEQ TAB.ER.PRT 40 MEQ PO (10:47)
[2025-05-23] MEDS: oxyCODONE HCl Immed Release 5 MG TABLET PO ×3 (10:47→22:03)
--- NOTE | 2025-05-23 14:03 | P.CNGI_ITS ---
History of Present Illness Data of Consult Service Date: 05/23/25 Requesting physician: Suzanne Robison Primary Care Provider: Unknown Physician HPI Reason for consult: ESLD with portal hypertension 34 YM with ESLD related to ETOH abuse and hepatitis-C untreated, hydrops of the gallbladder, substance abuse on methadone, Class 3 obesity, restless leg syndrome, anxiety depression seen at [facility] [place] [place] [facility] on 05/22/25 due to jaundice, dizziness and a fall with head strike. Pt complained of RUQ pain, nausea and vomiting last night, none currently He is known to me from previous hospitalizations and follow-up in the GI clinic. Pt admits to continued ETOH use - at least 3 times a week still and unable to quantify his ETOH intake. He reports he had two drinks of hard liquor yesterday. He is unable to recall how he had a fall. The patient's mother was unaware of this and reports that she has been monitoring him. Alcohol level on arrival 96. He has a history of substance abuse but reports that he is only using methadone, no additional drug use. He reports a headache and has bruising on his forehead from his fall. No visual changes. He reports a positive family hx of alcohol related liver disease in his Dad 05/23/[address] SCAN SHOWED: No definite acute process. Cirrhosis with sequelae of portal venous hypertension again noted. Fecal retention throughout the colon. Review of Systems 2 Review of Systems: Yes all other systems are reviewed and are negative PMFSH Past Medical History Medical History Liver failure Alcoholic cirrhosis of liver with ascites Cirrhosis Alcohol use disorder, severe, dependence Methadone maintenance therapy patient Cirrhosis Edema Alcohol abuse Increased ammonia level Substance abuse Opiate use Social History Social History Household Members: Family Household Members Other:: brother Housing: House Do you presently have visiting nurse or other home services: No Alcohol intake: current Alcohol intake frequency: former alcohol drinker Alcohol type: hard liquor Comment: refusing alarms Patient Tobacco Use Status: Never used Tobacco Tobacco use type: Cigarette Cigarette Packs Per Day: 1 Cigarettes Per Day: 20.0 e-Cigarette/Vaping Use: Currently Using Advance Directives: Yes Advance Directives on File: Yes Advance Directives Date on File: 02/18/25 Do you have a plan to hurt others: No Plan service: No Meds Allergies Allergy/AdvReac Type Severity Reaction Status Date / Time fish derived (fish) Allergy Anaphylaxis Verified 05/23/25 00:26 shellfish derived Allergy Anaphylaxis Verified 05/23/25 00:26 Active Medications: Current Medications Acetaminophen (Acetaminophen 325 Mg Tablet) 650 mg PO Q6H PRN PRN Reason: Pain, Mild 1-3,fever,headache Calcium Carbonate (Calcium Carbonate 750 Mg Tab.Chew) 750 mg PO Q4H PRN PRN Reason: Heartburn Furosemide (Furosemide 40 Mg Tablet) 40 mg PO DAILY [facility]; Protocol Hydroxyzine HCl (Hydroxyzine Hcl 25 Mg Tablet) 25 mg PO Q6H PRN PRN Reason: Anxiety Lactulose (Lactulose 20 Gm/30 Ml Solution) 60 gm PO TID [facility] Last Admin: 05/23/25 10:48 Dose: 60 gm Lorazepam (Lorazepam 1 Mg Tablet) 1 mg PO Q4H PRN; Taper PRN Reason: Alcohol Withdrawal Stop: 05/27/25 06:29 Last Admin: 05/23/25 10:48 Dose: 1 mg Magnesium Hydroxide (Milk Of Magnesia 30 Ml Oral.Susp) 30 ml PO DAILY PRN PRN Reason: Constipation Magnesium Oxide (Magnesium Oxide 400 Mg Tablet) 400 mg PO DAILY [facility] Melatonin (Melatonin 3 Mg Tablet) 6 mg PO BEDTIME PRN PRN Reason: Insomnia Multivitamins/Vitamin C (Multivitamin Tablet) 1 tab PO DAILY [facility] Stop: 05/26/25 08:59 Last Admin: 05/23/25 10:47 Dose: 1 tab Nicotine Polacrilex (Nicotine Polacrilex 2 Mg Gum) 2 mg BUCCAL Q2H PRN PRN Reason: Nicotine Cravings Ondansetron HCl (Ondansetron Hcl 4 Mg/2 Ml Vial) 4 mg IVPUSH Q8H PRN PRN Reason: Nausea and Vomiting Last Admin: 05/23/25 10:44 Dose: 4 mg Oxycodone HCl (Oxycodone Hcl Immed Release 5 Mg Tablet) 5 mg PO Q6H PRN PRN Reason: Pain, Severe (Pain Scale 7-10) Last Admin: 05/23/25 10:47 Dose: 5 mg Rifaximin (Rifaximin 550 Mg Tablet) 550 mg PO BID [facility] Last Admin: 05/23/25 10:47 Dose: 550 mg Sertraline HCl (Sertraline Hcl 100 Mg Tablet) 100 mg PO DAILY [facility] Sodium Chloride (0.9 % Sodium Chloride Flush 3 Ml Syringe) 3 ml IVFLUSH QSHIFT [facility] Last Admin: 05/23/25 10:44 Dose: 3 ml Spironolactone (Spironolactone 25 Mg Tablet) 50 mg PO DAILY [facility]; Protocol Tamsulosin HCl (Tamsulosin Hcl 0.4 Mg Capsule) 0.4 mg PO DAILY [facility] Thiamine HCl (Thiamine Hcl 100 Mg Tablet) 100 mg PO DAILY [facility] Stop: 05/26/25 08:59 Last Admin: 05/23/25 10:47 Dose: 100 mg Home Medications ?Medication ?Instructions ?Recorded ?Confirmed ?Last Taken ?Type methadone 10 mg/mL oral concentrate 80 mg PO DAILY 05/23/25 04/29/25 11:37 History clonidine HCl 0.1 mg tablet 0.1 mg PO TID 12/13/2404/28/25 History gabapentin 800 mg tablet 800 mg PO TID 12/13/2405/2304/28/25 History sertraline 100 mg tablet 100 mg PO DAILY 12/13/2404/28/25 History thiamine HCl (vitamin B1) 100 mg 200 mg PO DAILY 12/1305/23/25 04/28/25 History tablet magnesium oxide 400 mg (241.3 mg 400 mg PO DAILY 02/1205/23/25 04/28/25 History magnesium) tablet melatonin 5 mg tablet 5 - 10 mg PO BEDTIME PRN Sle ep 02/12/25 05/23/25 04/28/25 History tamsulosin 0.4 mg capsule 0.4 mg PO DAILY 02/12/2504/28/25 History lactulose 10 gram/15 mL oral 60 ml PO TID 03/28/2504/28/25 History solution linaclotide 145 mcg capsule 145 mcg PO DAILY 03/28/25 05/23/25 04/28/25 History (Linzess) nicotine 21 mg/24 hr daily 1 patch topical DAILY 04/3005/23/25 Unknown History transdermal patch folic acid 1 mg tablet 1 mg PO DAILY 05/23/2505/23 Unknown History spironolactone 50 mg tablet 50 mg PO DAILY 05/23/25 Unknown History Physical Exam 2 Vital Signs: Vital Signs: Last Vital Signs Temp 98 F 05/23/25 10:00 Pulse 76 05/23/25 10:00 Resp 12 05/23/25 10:00 BP 118/50 L 05/23/25 10:00 Pulse Ox 14 L 05/23/25 10:00 O2 Del Method Room Air 05/23/25 10:00 BMI result Body Mass Index 36.6 Const: General: no acute distress and lethargic (arousable and answers appropriately to questions) Nutritional Appearance: obese O rientation/consciousness: lethargic (arousable and answers appropriately to questions) Limitations: altered mental status HEENT: Head: Yes normal to inspection Ears: hearing grossly normal bilaterally Mouth: Normal oral and palatal mucosa present Eyes: Sclerae: sclerae normal Pupils: Equal, round and reactive pupils present Neck: Neck: Yes normal visual inspection Chest: Chest palpation & inspection: normal inspection of the chest Resp: Effort & Inspection: normal respiratory effort Auscultation: clear to auscultation bilaterally Cardio: Palpation: normal PMI Rate: regular rate Rhythm: regular rhythm Heart sounds: S1 normal heart sound present, S2 normal heart sound present and no murmurs GI: Palpation (GI): Soft to palpation, nontender and No hepatosplenomegaly present Auscultation: normal bowel sounds Rectal Exam - Male: Yes deferred Skin: General skin exam: no rashes or lesions noted Neuro: General: gait normal and moves all extremities Cranial nerves: Yes Equal, round and reactive pupils present Extrem: General: Yes pedal edema Psych: Appearance: grossly normal Mental Status: mental status grossly normal Results Labs 05/23/25 00:43 05/23/25 00:43 Labs: Short CBC 05/23/25 Range/Units 00:43 WBC 5.3 (4.8-10.8) X10*3/uL Hgb 13.9 L (14.0-18.0) g/dl Hct 40.0 L (42.0-52.0) % Plt Count 71 L (160-400) X10*3/uL BMP 05/23/25 00:43 Sodium 138 Potassium 3.1 L D Chloride 99 Carbon Dioxide 28 BUN 6 L Creatinine 0.58 Calcium 8.7 D Liver Function 05/23/25 Range/Units 00:43 Total Bilirubin 9.6 H (0.0-1.0) mg/dL AST 222 H (5-37) U/L ALT 86 H (0-40) U/L Alkaline Phosphatase 181 H (39-117) U/L Albumin 2.7 L (3.5-5.0) g/dL Urine 05/23/25 Range/Units 04:25 Urine Color Dark Yellow Urine Appearance Clear Urine pH 6.5 (5.0-9.0) Ur Specific [place] 1.010 (1.005-1.025) Urine Protein Negative (Neg-Trace) mg/dL Urine Glucose (UA) Negative (Negative) mg/dL Assessment and Plan (1) Chronic liver disease and cirrhosis: Status: Acute (2) Hepatic encephalopathy: Status: Acute (3) Chronic constipation: Status: Acute Plan 34 YM with ESLD related to ETOH abuse and hepatitis-C untreated, hydrops of the gallbladder, substance abuse on methadone, Class 3 obesity, restless leg syndrome, anxiety depression seen at [facility] [place] [place] [facility] on 05/22/25 due to jaundice, dizziness and a fall with head strike. Pt complained of RUQ pain, nausea and vomiting last night, none currently He is known to me from previous hospitalizations and follow-up in the GI clinic. Pt admits to continued ETOH use - at least 3 times a week still and unable to quantify his ETOH intake. He reports he had two drinks of hard liquor yesterday. He reports a positive family hx of alcohol related liver disease in his Dad Pt has ESLD due to chronic Hep C and METALD complicated by hepatic encephalopathy 05/23/[address] SCAN SHOWED: No definite acute process. Cirrhosis with sequelae of portal venous hypertension again noted. Fecal retention throughout the colon. RECOMMENDATIONS: 1. Agree with IV PPI, pain medications and antiemetics 2. [facility] protocol for ETOH withdrawl 3. Lactulose TID for hepatic encephalopathy - titrate to 3 soft BMs a day 4. Hold off steroids due to hep C 5. High protein and calorie diet 6. Check mag, K, PO4 and replenish if low 7. Needs ETOH rehab after discharge to quit drinking 8. Needs to stop drinking before he can be treated for Hep C to ensure compliance with Hep C treatment. Pt is not a liver transplnt candidate at present as he continues to drink Procedures Date of Service Date of Service: 05/23/25
--- NOTE | 2025-05-23 14:05 | MHC.CM.PN ---
Pt. lives with family, he said he is working on getting [employer] services, he does not currently have them, or use DME. PCP is: Stephen Biggs, he goes to [facility] for Methadone. HCP is on file and confirmed: Reny. Pt. is able to arrange a ride home at [place], DCP: home, self care. CM to follow for DC needs.
--- NOTE | 2025-05-23 16:06 | HO.ADDICT_ITS ---
History of Present Illness Date of Service: 05/23/2025 Chief Complaint: heaptic encephalopathy Reason for Consult: AUD Sources of Information: chart reviewed HPI Narrative: all information obtained via chart review as patient was unable to participate in interview--aside from reporting pain in right upper abdominal area Patient is a 34 year old male with medical history that includes liver cirrhosis, AUD and OUD. Presented to [facility] [place] [facility] with dizziness, reporting a fall with head strike. Found to be jaundiced, with elevated ammonia and medically admitted. Per H&P, patient reported drinking at home at least 3x/week. ETOH level 96. Unclear how much he has been drinking. Still engaged in treatment with [facility]--dose not yet verified, however admission at the end of April, dose was 80mg. Patient seen in room 19 of main ED. Sleeping, requiring voice and touch to wake. Difficulty keeping his eyes open, slowed, slurred speech, then falls back to sleep. He denies withdrawal sx. Did not appear diaphoretic or restless. VS WNL. No reports of nausea or vomiting. No tremor noted when patient pointed to his right upper torso where he was reporting pain. Chart review shows that he has received 2 doses of lorazepam 2mg at 0430 and 1mg at 1048. Currently has lorazepam 1mg Q4H PRN alcohol withdrawal Labs reviewed GI consult in place Medical Evaluation Reviewed: Yes Review of Systems Constitutional: Reports as per HPI (limited due to mental status ) Diagnostics Vital Signs (24Hr): Vital Signs - 24 hr 05/23/25 00:23 05/23/25 03:35 05/23/25 04:34 Temperature 97.0 F 97.7 F Pulse Rate 84 72 Respiratory Rate 16 16 14 Blood Pressure 100/67 101/55 L Pulse Oximetry 95 95 Oxygen Delivery Method Room Air Room Air 05/23/25 08:00 05/23/25 10:00 05/23/25 14:00 Temperature 98.2 F 98 F 98.0 F Pulse Rate 74 76 78 Respiratory Rate 14 12 14 Blood Pressure 110/55 L 118/50 L 108/66 Pulse Oximetry 99 14 L 99 Oxygen Delivery Method Room Air Room Air Room Air BMI result Body Mass Index 36.6 Labs 05/23/25 00:43 05/23/25 00:43 Labs: Laboratory Results - last 48 hr 05/23/25 05/23/25 05/23/25 00:43 04:25 08:15 WBC 5.3 RBC 4.23 L Hgb 13.9 L Hct 40.0 L MCV 94.6 MCH 32.9 MCHC 34.8 RDW 14.8 Plt Count 71 L MPV 10.5 Immature Gran % (Auto) 0.2 Neut % (Auto) 51.3 Lymph % (Auto) 40.0 [place] % (Auto) 6.8 Eos % (Auto) 1.3 Baso % (Auto) 0.4 Lymph # (Auto) 2.1 [place] # (Auto) 0.4 Eos # (Auto) 0.1 Baso # (Auto) 0.0 Abs Immat Gran (auto) 0.01 Absolute Neuts (auto) 2.7 Absolute Nucleated RBC 0.000 Nucleated RBC % (auto) 0.0 Sodium 138 Potassium 3.1 L D Chloride 99 Carbon Dioxide 28 Anion Gap 14 BUN 6 L Creatinine 0.58 Estim Creat Clear Calc 196.8 Estimated GFR > 60 Random Glucose 119 H Calcium 8.7 D Magnesium 1.7 Total Bilirubin 9.6 H AST 222 H ALT 86 H Alkaline Phosphatase 181 H Ammonia 124 H 99 H Total Protein 7.2 Albumin 2.7 L Urine Color Dark Yellow Urine Appearance Clear Urine pH 6.5 Ur Specific [place] 1.010 Urine Protein Negative Urine Glucose (UA) Negative Urine Ketones Negative Urine Blood Negative Urine Nitrite Negative Ur Leukocyte Esterase Trace H Urine RBC 0-2 Urine WBC 0-5 Ur Squamous Epith Cells 0-2 Urine Bacteria None Seen Hyaline Casts 0-2 Urine Opiates Screen Not Detected Ur Buprenorphine Scrn Not Detected Ur Oxycodone Screen Not Detected Urine Methadone Screen Positive H Urine Fentanyl Screen Not Detected Ur Barbiturates Screen Not Detected Ur Phencyclidine Scrn Not Detected Ur Amphetamines Screen Not Detected U Benzodiazepines Scrn POSITIVE H Urine Cocaine Screen Not Detected U Marijuana (THC) Screen Not Detected Ethyl Alcohol 96 Mental Status Exam Mental Status Exam Level of Consciousness: Obtunded Medications Medications Current Medications Acetaminophen (Acetaminophen 325 Mg Tablet) 650 mg PO Q6H PRN PRN Reason: Pain, Mild 1-3,fever,headache Calcium Carbonate (Calcium Carbonate 750 Mg Tab.Chew) 750 mg PO Q4H PRN PRN Reason: Heartburn Furosemide (Furosemide 40 Mg Tablet) 40 mg PO DAILY [facility]; Protocol Hydroxyzine HCl (Hydroxyzine Hcl 25 Mg Tablet) 25 mg PO Q6H PRN PRN Reason: Anxiety Lactulose (Lactulose 20 Gm/30 Ml Solution) 60 gm PO TID [facility] Last Admin: 05/23/25 10:48 Dose: 60 gm Lorazepam (Lorazepam 1 Mg Tablet) 1 mg PO Q4H PRN; Taper PRN Reason: Alcohol Withdrawal Stop: 05/27/25 06:29 Last Admin: 05/23/25 10:48 Dose: 1 mg Magnesium Hydroxide (Milk Of Magnesia 30 Ml Oral.Susp) 30 ml PO DAILY PRN PRN Reason: Constipation Magnesium Oxide (Magnesium Oxide 400 Mg Tablet) 400 mg PO DAILY [facility] Melatonin (Melatonin 3 Mg Tablet) 6 mg PO BEDTIME PRN PRN Reason: Insomnia Multivitamins/Vitamin C (Multivitamin Tablet) 1 tab PO DAILY [facility] Stop: 05/26/25 08:59 Last Admin: 05/23/25 10:47 Dose: 1 tab Nicotine Polacrilex (Nicotine Polacrilex 2 Mg Gum) 2 mg BUCCAL Q2H PRN PRN Reason: Nicotine Cravings Ondansetron HCl (Ondansetron Hcl 4 Mg/2 Ml Vial) 4 mg IVPUSH Q8H PRN PRN Reason: Nausea and Vomiting Last Admin: 05/23/25 10:44 Dose: 4 mg Oxycodone HCl (Oxycodone Hcl Immed Release 5 Mg Tablet) 5 mg PO Q6H PRN PRN Reason: Pain, Severe (Pain Scale 7-10) Last Admin: 05/23/25 10:47 Dose: 5 mg Rifaximin (Rifaximin 550 Mg Tablet) 550 mg PO BID [facility] Last Admin: 05/23/25 10:47 Dose: 550 mg Sertraline HCl (Sertraline Hcl 100 Mg Tablet) 100 mg PO DAILY [facility] Sodium Chloride (0.9 % Sodium Chloride Flush 3 Ml Syringe) 3 ml IVFLUSH QSHIFT [facility] Last Admin: 05/23/25 10:44 Dose: 3 ml Spironolactone (Spironolactone 25 Mg Tablet) 50 mg PO DAILY [facility]; Protocol Tamsulosin HCl (Tamsulosin Hcl 0.4 Mg Capsule) 0.4 mg PO DAILY [facility] Thiamine HCl (Thiamine Hcl 100 Mg Tablet) 100 mg PO DAILY [facility] Stop: 05/26/25 08:59 Last Admin: 05/23/25 10:47 Dose: 100 mg Allergies Allergies Allergy/AdvReac Type Severity Reaction Status Date / Time fish derived (fish) Allergy Anaphylaxis Verified 05/23/25 00:26 shellfish derived Allergy Anaphylaxis Verified 05/23/25 00:26 Assessment & Plan Assessment & Plan (1) Alcohol use disorder, severe, dependence: Status: Acute Code(s): F10.20 - Alcohol dependence, uncomplicated Assessment and Plan: * continue to monitor CIWA --PRN lorazepam appropriate based on mild sx. Can increase frequency if necessary. * will follow up in AM to attempt to gather better history (2) Methadone maintenance therapy patient: Status: Acute Code(s): F11.20 - Opioid dependence, uncomplicated Assessment and Plan: * methadone dose not verified, however based on level of sedation/encephalopathy--full dose of methadone would not be appropriate. * continue PRN morphine ---will reassess in AM to determine methadone restart. will order one time PRN dose for any withdrawal that may be reproted o/n Total time managing care of this patient today __45__ minutes. [facility] Past Medical History Medical History (Updated 05/23/25 @ 16:46 by Carolyn Mancilla CNP) Methadone maintenance therapy patient Alcohol use disorder, severe, dependence Liver failure Alcoholic cirrhosis of liver with ascites Cirrhosis Cirrhosis Edema Alcohol abuse Increased ammonia level Substance abuse Opiate use Social History Social History Household Members: Family Household Members Other:: brother Housing: House Do you presently have visiting nurse or other home services: No Alcohol intake: current Alcohol intake frequency: former alcohol drinker Alcohol type: hard liquor Comment: refusing alarms Patient Tobacco Use Status: Never used Tobacco Tobacco use type: Cigarette Cigarette Packs Per Day: 1 Cigarettes Per Day: 20.0 e-Cigarette/Vaping Use: Currently Using Advance Directives: Yes Advance Directives on File: Yes Advance Directives Date on File: 02/18/25 Do you have a plan to hurt others: No Plan service: No
[2025-05-23 16:08] LABS: Hematocrit 36.2 % (42.0-52.0); Hemoglobin 12.2 g/dl (14.0-18.0); Imm Gran Abs Auto 0.01 X10*3/uL (0.00-0.03); Imm Gran Pct Auto 0.4 % (0.0-0.4); Lymphocytes Absolute Auto 1.1 X10*3/uL (1.2-4.9); MANUAL DIFF FLAG SCAN; Mean Corpuscular HGB Conc 33.7 g/dl (31.0-36.0); Mean Corpuscular Hemoglobin 32.8 pg (27.0-33.0); Mean Corpuscular Volume 97.3 fL (80.0-98.0); NRBC Abs Auto 0.000 X10*3/uL (0.0-0.012); NRBC Pct Auto 0.0 /100WBC (0.0-0.2); Red Blood Count 3.72 X10*6/uL (4.60-5.80); SCAN SMEAR FLAG 1
--- NOTE | 2025-05-23 16:14 | HE.PHANOTE ---
RE: Methadone Dose confirmed 85 mg last given 05/22/25 @0645 at [facility]. Take home bottle given unsure if 05/23 dose administered.
[2025-05-23 16:18] LABS: Platelet Count 57 X10*3/uL (160-400); White Blood Count 2.4 X10*3/uL (4.8-10.8)
[2025-05-23 16:23] LABS: Alanine Aminotransferase 77 U/L (0-40); Albumin Level 2.4 g/dL (3.5-5.0); Alkaline Phosphatase 154 U/L (39-117); Anion Gap 9 (12-20); Aspartate Amino Transferase 192 U/L (5-37); Blood Urea Nitrogen 6 mg/dL (9-16); Calcium 8.4 mg/dL (8.4-10.2); Carbon Dioxide 27 mmol/L (22-29); Chloride 106 mmol/L (96-108); Creatinine Clr Calc Pharmacy 215.3; Estimated Glomerular Filt Rate > 60; Potassium 3.8 mmol/L (3.3-5.1); Sodium 138 mmol/L (135-145); Total Protein 6.2 g/dL (6.5-8.0)
[2025-05-23] MEDS: methADONE HCl 20 MG/2 ML ORAL.CONC 85 MG PO (19:08)
[2025-05-23] MEDS: Nicotine 21 MG PATCH.TD24 TRANSDERMA (22:06)
[2025-05-24] VITALS (9 sets, daily range): BP systolic 98–141; BP diastolic 45–83; PULSE 65–80; RESP 16–18; TEMP 36.4–36.8; O2SAT 95–96
[2025-05-24] MEDS: oxyCODONE HCl Immed Release 5 MG TABLET 10 MG PO ×3 (03:11→21:16)
--- NOTE | 2025-05-24 06:33 | PC.NURSE ---
t/w assumed care of pt last night at 1900. Pt was upset and wanted to leave because he had not received his methadone. This RN explained that the previous RN had been in with a critical pt and had not previously been able to get his medication. Pt reports he is very upset and wanted to go. T/w explained that th methadone was ordered and I would give it to him and talked to patient about reconsidering hs leaving AMA d/t his serious illness. Pt accepted methadone and was agreeable to stay. Pt ambulated to the br a couple of times throughout the night. Pt refused his lactulose, made aware and request for nicotine gum. Nicotine patch ordered and applied to L arm and let provider know pt was accepting to use the nicotine patch but would prefer the gum. Gum ordered PRN. Pt had also endorse anxiety and pain, medicated with PRN oxycodone and ativan per orders. CIWA scale score was 5. Pt intermittently sleeping throughout shift, declined dinner but did eat 2 peanut butter and jelly sandwiches. Pt received a 1 time dose oxycodone d/t 06/19 pain in abdomen. Oxycodone 5mg was not available and pt requesting the doctor order something else. Oxycodone 10mg one time dose ordered, Pt asleep when attempting to given medication. Pt did ring call chow a short period of time later. Pt medicated per DEC. Pt alert and oriented X4, SR on tele, lung sounds clear on room air, again resting in bed eyes closed, RR even and unlabored. observed ambulating to br with steady gait. Pt awaiting bed placement. Seizure precautions in place. Plan of care ongoing.
[2025-05-24 06:37] LABS: Hematocrit 36.2 % (42.0-52.0); Hemoglobin 12.2 g/dl (14.0-18.0); Imm Gran Abs Auto 0.01 X10*3/uL (0.00-0.03); Imm Gran Pct Auto 0.4 % (0.0-0.4); Lymphocytes Absolute Auto 1.1 X10*3/uL (1.2-4.9); Mean Corpuscular HGB Conc 33.7 g/dl (31.0-36.0); Mean Corpuscular Hemoglobin 32.8 pg (27.0-33.0); Mean Corpuscular Volume 97.3 fL (80.0-98.0); NRBC Abs Auto 0.000 X10*3/uL (0.0-0.012); NRBC Pct Auto 0.0 /100WBC (0.0-0.2); Red Blood Count 3.72 X10*6/uL (4.60-5.80)
[2025-05-24 06:39] LABS: Platelet Count 53 X10*3/uL (160-400); White Blood Count 2.4 X10*3/uL (4.8-10.8)
[2025-05-24 06:43] LABS: Ammonia 147 umol/L (13-55)
[2025-05-24 06:59] LABS: Alanine Aminotransferase 75 U/L (0-40); Albumin Level 2.3 g/dL (3.5-5.0); Alkaline Phosphatase 156 U/L (39-117); Anion Gap 10 (12-20); Aspartate Amino Transferase 185 U/L (5-37); Blood Urea Nitrogen 7 mg/dL (9-16); Calcium 8.3 mg/dL (8.4-10.2); Carbon Dioxide 28 mmol/L (22-29); Chloride 105 mmol/L (96-108); Creatinine Clr Calc Pharmacy 207.5; Estimated Glomerular Filt Rate > 60; Potassium 3.8 mmol/L (3.3-5.1); Sodium 139 mmol/L (135-145); Total Protein 5.9 g/dL (6.5-8.0)
--- NOTE | 2025-05-24 08:19 | P.PNIM_ITS ---
Subjective Subjective Date of Service: 05/24/25 Interval History: Patient observed out of bed, ambulating with steady gait. Patient's ammonia level still elevated, not consistently taking his lactulose. He continues on his methadone dosing. Oxycodone DC due to sedation level. Review of Systems Denies any shortness of breath, chest pain, dizziness, lightheadedness, + abdominal discomfort, No nausea, vomiting or diarrhea. Physical Exam 2 Exam: Exam: General: AOx3, no acute distress. Somnolent, HEETN: Scleral icterus. Resp: CTA bilaterally CVS: S1, S2, RRR GI: +BS, tender RUQ, + distention. Skin: Warm, dry Neuro: Cranial nerves II-XII grossly intact bilaterally. Motor grossly intact bilaterally. +asterixis. Extremities: No pitting edema Psych: Confused, answering questions. Vital Signs: Vital Signs: Last Vital Signs Temp 97.9 F 05/24/25 05:51 Pulse 67 05/24/25 05:51 Resp 16 05/24/25 08:18 BP 98/49 L 05/24/25 05:51 Pulse Ox 96 05/24/25 08:18 O2 Del Method Room Air 05/24/25 08:18 BMI result Body Mass Index 36.6 Objective Data Active Medications Acetaminophen (Acetaminophen 325 Mg Tablet) 650 mg PO Q6H PRN PRN Reason: Pain, Mild 1-3,fever,headache Calcium Carbonate (Calcium Carbonate 750 Mg Tab.Chew) 750 mg PO Q4H PRN PRN Reason: Heartburn Furosemide (Furosemide 40 Mg Tablet) 40 mg PO DAILY [facility]; Protocol Hydroxyzine HCl (Hydroxyzine Hcl 25 Mg Tablet) 25 mg PO Q6H PRN PRN Reason: Anxiety Lactulose (Lactulose 20 Gm/30 Ml Solution) 60 gm PO TID [facility] Last Admin: 05/23/25 22:03 Dose: Not Given Documented By: ARMIDA Non-Admin Reason: Patient Refused Lorazepam (Lorazepam 1 Mg Tablet) 1 mg PO Q6H PRN; Taper PRN Reason: Alcohol Withdrawal Stop: 05/27/25 06:29 Last Admin: 05/24/25 07:29 Dose: 1 mg Documented By: DANIEL Magnesium Hydroxide (Milk Of Magnesia 30 Ml Oral.Susp) 30 ml PO DAILY PRN PRN Reason: Constipation Magnesium Oxide (Magnesium Oxide 400 Mg Tablet) 400 mg PO DAILY [facility] Melatonin (Melatonin 3 Mg Tablet) 6 mg PO BEDTIME PRN PRN Reason: Insomnia Methadone HCl (Methadone Hcl 20 Mg/2 Ml Oral.Conc) 85 mg PO DAILY [facility] Last Admin: 05/23/25 19:08 Dose: 85 mg Documented By: ARMIDA Co-signed By: JAIME Multivitamins/Vitamin C (Multivitamin Tablet) 1 tab PO DAILY [facility] Stop: 05/26/25 08:59 Last Admin: 05/23/25 10:47 Dose: 1 tab Documented By: ROSELIA Nicotine Polacrilex (Nicotine Polacrilex 2 Mg Gum) 2 mg BUCCAL Q2H PRN PRN Reason: Nicotine Cravings Last Admin: 05/24/25 07:28 Dose: 2 mg Documented By: DANIEL Ondansetron HCl (Ondansetron Hcl 4 Mg/2 Ml Vial) 4 mg IVPUSH Q8H PRN PRN Reason: Nausea and Vomiting Last Admin: 05/23/25 10:44 Dose: 4 mg Documented By: ROSELIA Oxycodone HCl (Oxycodone Hcl Immed Release 5 Mg Tablet) 5 mg PO Q4H PRN PRN Reason: abdominal pain Last Admin: 05/23/25 22:03 Dose: 5 mg Documented By: ARMIDA Rifaximin (Rifaximin 550 Mg Tablet) 550 mg PO BID [facility] Last Admin: 05/23/25 22:04 Dose: 550 mg Documented By: ARMIDA Sertraline HCl (Sertraline Hcl 100 Mg Tablet) 100 mg PO DAILY [facility] Sodium Chloride (0.9 % Sodium Chloride Flush 3 Ml Syringe) 3 ml IVFLUSH QSHIFT [facility] Last Admin: 05/23/25 19:16 Dose: Not Given Documented By: ARMIDA Non-Admin Reason: not done by previous rn Spironolactone (Spironolactone 25 Mg Tablet) 50 mg PO DAILY [facility]; Protocol Tamsulosin HCl (Tamsulosin Hcl 0.4 Mg Capsule) 0.4 mg PO DAILY [facility] Thiamine HCl (Thiamine Hcl 100 Mg Tablet) 100 mg PO DAILY [facility] Stop: 05/26/25 08:59 Last Admin: 05/23/25 10:47 Dose: 100 mg Documented By: ROSELIA Labs 05/24/25 06:13 05/24/25 06:13 Labs: Laboratory Results - last 24 hr 05/23/25 05/23/25 05/24/25 08:15 15:56 06:13 MCV 97.3 97.3 MCH 32.8 32.8 MCHC 33.7 33.7 RDW 15.0 14.9 Plt Count 57 L 53 L MPV 10.9 10.7 Immature Gran % (Auto) 0.4 0.4 Neut % (Auto) 42.0 L 44.4 L Lymph % (Auto) 47.5 H 44.7 H [place] % (Auto) 8.4 8.4 Eos % (Auto) 1.3 1.7 Baso % (Auto) 0.4 0.4 Lymph # (Auto) 1.1 L 1.1 L [place] # (Auto) 0.2 0.2 Eos # (Auto) 0.0 0.0 Baso # (Auto) 0.0 0.0 Abs Immat Gran (auto) 0.01 0.01 Absolute Neuts (auto) 1.0 L 1.1 L Absolute Nucleated RBC 0.000 0.000 Nucleated RBC % (auto) 0.0 0.0 Smear Tech's Comments VERIFIED Anion Gap 9 L 10 L Estim Creat Clear Calc 215.3 207.5 Estimated GFR > 60 > 60 Random Glucose 108 122 H Calcium 8.4 8.3 L Total Bilirubin 7.4 H 6.9 H AST 192 H 185 H ALT 77 H 75 H Alkaline Phosphatase 154 H 156 H Ammonia 99 H 147 H Total Protein 6.2 L 5.9 L Albumin 2.4 L 2.3 L Assessment and Plan (1) Hepatic encephalopathy: Status: Acute Plan Patient is a 34-year-old male with a past medical history significant for end- stage liver disease/cirrhosis, hepatitis-C untreated, hydrops of the gallbladder, substance abuse on methadone, and Class 3 obesity who presented to the ED due to jaundice, dizziness and a fall with head strike. Found to have hepatic encephalopathy. Hepatic encephalopathy with multiple falls Ammonia level 147. Continue lactulose. Patient only took 1/2 dose this morning. Refused previous dose and did not receive one dose. 1X dose of 60 ml ordered. Repeat level at 12 pm. LFTs stable, near baseline. Follow labs Alcohol level [address] negative, c-spine CT negative Continue lactulose 60gm TID and rifixamin 550mg BID. He reports 2 BMs today unconfirmed. Alcoholic liver disease/hepatitis Evidenced by eleavted LFTs near baseline. RUQ pain and jaundice. Steroids contraindicated due to untreated hep C per last admission A/P CT without acute process, cirrhosis with portal HTN-Followed by GI CIWA score 6 this morning-Received Ativan. Addiction med following Oxy for pain Q6 hours Seizure precautions Continue folate, thiamine, multivitamin Thrombocytopenia, chronic PLT 53 Follow labs Hypokalemia K+ WNL Magnesium WNL. Follow labs Substance use disorder Methadone dosing of 85 mgs ordered Tobacco use disorder Smoking cessation encouraged Nicotine gum per patient request CODE status: DNR/DNI VTE prophy: pneumoboots Pt with hepatic encephalopathy with multiple falls secondary to alcoholic liver disease, requiring admission for at least 2 midnights stay for improvement of encephalopathy and monitoring. Quality Stroke Does the patient have a stroke diagnosis?: No VTE Prior VTE?: No VTE Risk Level:: Medical - moderate - high VTE Device Contraindication: N/A - Device Ordered VTE Drug Contraindication: Treatment Not Indicated
--- NOTE | 2025-05-24 08:20 | PC.NURSE ---
Pt AOX3; reporting 8/10 abd. pain; CIWA score 6; pt medicated with PO Ativan per orders; pt independent with urinal; vss; aware of admission status; awaiting room for admission
[2025-05-24] MEDS: oxyCODONE HCl Immed Release 5 MG TABLET PO (08:30)
[2025-05-24] MEDS: methADONE HCl 20 MG/2 ML ORAL.CONC 85 MG PO (08:34)
[2025-05-24 08:40] LABS: Ammonia 146 umol/L (13-55)
--- NOTE | 2025-05-24 08:52 | PC.NURSE ---
Pt refusing to take full dose of ordered Lactulose; pt counsele on necessity of ordered dosage/still refuses; provider made aware and is at bedside with pt
--- NOTE | 2025-05-24 10:34 | PC.NURSE ---
Pt appears very lethargic, confused; ammonia level 146; provider aware; pt agreed to take another dose of lactulose after inititally refusing his full dose this morning; vss
[2025-05-24] MEDS: 0.9 % Sodium Chloride Flush 3 ML SYRINGE IVFLUSH ×4 (10:51→21:17)
[2025-05-24 12:27] LABS: Ammonia 126 umol/L (13-55)
--- NOTE | 2025-05-24 14:46 | P.PNADD_ITS ---
Subjective Subjective Date of Service: 05/24/25 Reason For Visit: heaptic encephalopathy Interim History: Patient seen in follow up for AUD Easier to wake this morning, however still having difficulty remaining awake--ammonia 146 this morning and per documentation, declining full dose of lactulose Woke late yesterday afternoon asking for methadone--administered without issue. Also received it this morning prior to being seen by t/w Unable to obtain any additional history related to alcohol use. CIWA scores have been 4,5 . VS WNL. Again, no diaphoresis noted. PRN ativan effective when administered Review of Systems Constitutional: Reports as per HPI (difficult to assess, but still c/o pain ) Mental Status Exam Mental Status Exam Level of Consciousness: Drowsy Patient Behavior: Appropriate Speech Pattern: Slurred and Long Pauses Judgement: Fair Diagnostics Vital Signs (24Hr): Vital Signs - 24 hr 05/23/25 17:10 05/23/25 19:51 05/23/25 22:19 Temperature 97.6 F 97.6 F 98.0 F Pulse Rate 64 71 68 Respiratory Rate 12 14 12 Blood Pressure 109/58 L 104/61 98/68 Pulse Oximetry 96 95 95 Oxygen Delivery Method Room Air Room Air Room Air 05/24/25 03:56 05/24/25 05:51 05/24/25 08:18 Temperature 97.9 F 97.9 F Pulse Rate 65 67 Respiratory Rate 16 Blood Pressure 103/54 L 98/49 L Pulse Oximetry 95 96 96 Oxygen Delivery Method Room Air Room Air Room Air 05/24/25 08:30 05/24/25 08:32 05/24/25 10:29 Temperature 97.9 F Pulse Rate 66 Respiratory Rate 18 Blood Pressure 101/45 L 101/45 L 116/73 Pulse Oximetry 96 Oxygen Delivery Method Room Air BMI result Body Mass Index 36.6 Labs 05/24/25 06:13 05/24/25 06:13 Labs: Laboratory Results - last 48 hr 05/23/25 05/23/25 05/23/25 00:43 04:25 08:15 WBC 5.3 RBC 4.23 L Hgb 13.9 L Hct 40.0 L MCV 94.6 MCH 32.9 MCHC 34.8 RDW 14.8 Plt Count 71 L MPV 10.5 Immature Gran % (Auto) 0.2 Neut % (Auto) 51.3 Lymph % (Auto) 40.0 [place] % (Auto) 6.8 Eos % (Auto) 1.3 Baso % (Auto) 0.4 Lymph # (Auto) 2.1 [place] # (Auto) 0.4 Eos # (Auto) 0.1 Baso # (Auto) 0.0 Abs Immat Gran (auto) 0.01 Absolute Neuts (auto) 2.7 Absolute Nucleated RBC 0.000 Nucleated RBC % (auto) 0.0 Smear Tech's Comments Smear Path Review Sodium 138 Potassium 3.1 L D Chloride 99 Carbon Dioxide 28 Anion Gap 14 BUN 6 L Creatinine 0.58 Estim Creat Clear Calc 196.8 Estimated GFR > 60 Random Glucose 119 H Calcium 8.7 D Magnesium 1.7 Total Bilirubin 9.6 H AST 222 H ALT 86 H Alkaline Phosphatase 181 H Ammonia 124 H 99 H Total Protein 7.2 Albumin 2.7 L Urine Color Dark Yellow Urine Appearance Clear Urine pH 6.5 Ur Specific Ord 1.010 Urine Protein Negative Urine Glucose (UA) Negative Urine Ketones Negative Urine Blood Negative Urine Nitrite Negative Ur Leukocyte Esterase Trace H Urine RBC 0-2 Urine WBC 0-5 Ur Squamous Epith Cells 0-2 Urine Bacteria None Seen Hyaline Casts 0-2 Urine Opiates Screen Not Detected Ur Buprenorphine Scrn Not Detected Ur Oxycodone Screen Not Detected Urine Methadone Screen Positive H Urine Fentanyl Screen Not Detected Ur Barbiturates Screen Not Detected Ur Phencyclidine Scrn Not Detected Ur Amphetamines Screen Not Detected U Benzodiazepines Scrn POSITIVE H Urine Cocaine Screen Not Detected U Marijuana (THC) Screen Not Detected Ethyl Alcohol 96 05/23/25 05/24/25 05/24/25 15:56 06:13 08:26 WBC 2.4 L 2.4 L RBC 3.72 L 3.72 L Hgb 12.2 L 12.2 L Hct 36.2 L 36.2 L MCV 97.3 97.3 MCH 32.8 32.8 MCHC 33.7 33.7 RDW 15.0 14.9 Plt Count 57 L 53 L MPV 10.9 10.7 Immature Gran % (Auto) 0.4 0.4 Neut % (Auto) 42.0 L 44.4 L Lymph % (Auto) 47.5 H 44.7 H [place] % (Auto) 8.4 8.4 Eos % (Auto) 1.3 1.7 Baso % (Auto) 0.4 0.4 Lymph # (Auto) 1.1 L 1.1 L [place] # (Auto) 0.2 0.2 Eos # (Auto) 0.0 0.0 Baso # (Auto) 0.0 0.0 Abs Immat Gran (auto) 0.01 0.01 Absolute Neuts (auto) 1.0 L 1.1 L Absolute Nucleated RBC 0.000 0.000 Nucleated RBC % (auto) 0.0 0.0 Smear Tech's Comments VERIFIED Smear Path Review SEE NOTE Sodium 138 139 Potassium 3.8 D 3.8 Chloride 106 105 Carbon Dioxide 27 28 Anion Gap 9 L 10 L BUN 6 L 7 L Creatinine 0.53 0.55 Estim Creat Clear Calc 215.3 207.5 Estimated GFR > 60 > 60 Random Glucose 108 122 H Calcium 8.4 8.3 L Magnesium Total Bilirubin 7.4 H 6.9 H AST 192 H 185 H ALT 77 H 75 H Alkaline Phosphatase 154 H 156 H Ammonia 147 H 146 H Total Protein 6.2 L 5.9 L Albumin 2.4 L 2.3 L Urine Color Urine Appearance Urine pH Ur Specific Ord Urine Protein Urine Glucose (UA) Urine Ketones Urine Blood Urine Nitrite Ur Leukocyte Esterase Urine RBC Urine WBC Ur Squamous Epith Cells Urine Bacteria Hyaline Casts Urine Opiates Screen Ur Buprenorphine Scrn Ur Oxycodone Screen Urine Methadone Screen Urine Fentanyl Screen Ur Barbiturates Screen Ur Phencyclidine Scrn Ur Amphetamines Screen U Benzodiazepines Scrn Urine Cocaine Screen U Marijuana (THC) Screen Ethyl Alcohol 05/24/25 12:14 WBC RBC Hgb Hct MCV MCH MCHC RDW Plt Count MPV Immature Gran % (Auto) Neut % (Auto) Lymph % (Auto) [place] % (Auto) Eos % (Auto) Baso % (Auto) Lymph # (Auto) [place] # (Auto) Eos # (Auto) Baso # (Auto) Abs Immat Gran (auto) Absolute Neuts (auto) Absolute Nucleated RBC Nucleated RBC % (auto) Smear Tech's Comments Smear Path Review Sodium Potassium Chloride Carbon Dioxide Anion Gap BUN Creatinine Estim Creat Clear Calc Estimated GFR Random Glucose Calcium Magnesium Total Bilirubin AST ALT Alkaline Phosphatase Ammonia 126 H Total Protein Albumin Urine Color Urine Appearance Urine pH Ur Specific Ord Urine Protein Urine Glucose (UA) Urine Ketones Urine Blood Urine Nitrite Ur Leukocyte Esterase Urine RBC Urine WBC Ur Squamous Epith Cells Urine Bacteria Hyaline Casts Urine Opiates Screen Ur Buprenorphine Scrn Ur Oxycodone Screen Urine Methadone Screen Urine Fentanyl Screen Ur Barbiturates Screen Ur Phencyclidine Scrn Ur Amphetamines Screen U Benzodiazepines Scrn Urine Cocaine Screen U Marijuana (THC) Screen Ethyl Alcohol Medications Medications Current Medications Acetaminophen (Acetaminophen 325 Mg Tablet) 650 mg PO Q6H PRN PRN Reason: Pain, Mild 1-3,fever,headache Calcium Carbonate (Calcium Carbonate 750 Mg Tab.Chew) 750 mg PO Q4H PRN PRN Reason: Heartburn Furosemide (Furosemide 40 Mg Tablet) 40 mg PO DAILY [facility]; Protocol Last Admin: 05/24/25 08:32 Dose: 40 mg Hydroxyzine HCl (Hydroxyzine Hcl 25 Mg Tablet) 25 mg PO Q6H PRN PRN Reason: Anxiety Lactulose (Lactulose 20 Gm/30 Ml Solution) 30 gm PO 5XD LU Lorazepam (Lorazepam 1 Mg Tablet) 1 mg PO Q6H PRN; Taper PRN Reason: Alcohol Withdrawal Stop: 05/27/25 06:29 Last Admin: 05/24/25 07:29 Dose: 1 mg Magnesium Hydroxide (Milk Of Magnesia 30 Ml Oral.Susp) 30 ml PO DAILY PRN PRN Reason: Constipation Magnesium Oxide (Magnesium Oxide 400 Mg Tablet) 400 mg PO DAILY [facility] Last Admin: 05/24/25 08:33 Dose: 400 mg Melatonin (Melatonin 3 Mg Tablet) 6 mg PO BEDTIME PRN PRN Reason: Insomnia Methadone HCl (Methadone Hcl 20 Mg/2 Ml Oral.Conc) 85 mg PO DAILY [facility] Last Admin: 05/24/25 08:34 Dose: 85 mg Multivitamins/Vitamin C (Multivitamin Tablet) 1 tab PO DAILY [facility] Stop: 05/26/25 08:59 Last Admin: 05/24/25 08:30 Dose: 1 tab Nicotine Polacrilex (Nicotine Polacrilex 2 Mg Gum) 2 mg BUCCAL Q2H PRN PRN Reason: Nicotine Cravings Last Admin: 05/24/25 07:28 Dose: 2 mg Ondansetron HCl (Ondansetron Hcl 4 Mg/2 Ml Vial) 4 mg IVPUSH Q8H PRN PRN Reason: Nausea and Vomiting Last Admin: 05/23/25 10:44 Dose: 4 mg Oxycodone HCl (Oxycodone Hcl Immed Release 5 Mg Tablet) 10 mg PO Q6H PRN PRN Reason: Pain, Severe (Pain Scale 7-10) Rifaximin (Rifaximin 550 Mg Tablet) 550 mg PO BID [facility] Last Admin: 05/24/25 08:33 Dose: 550 mg Sertraline HCl (Sertraline Hcl 100 Mg Tablet) 100 mg PO DAILY [facility] Last Admin: 05/24/25 10:51 Dose: 100 mg Sodium Chloride (0.9 % Sodium Chloride Flush 3 Ml Syringe) 3 ml IVFLUSH QSHIFT [facility] Last Admin: 05/24/25 10:51 Dose: 3 ml Spironolactone (Spironolactone 25 Mg Tablet) 50 mg PO DAILY [facility]; Protocol Last Admin: 05/24/25 08:30 Dose: 50 mg Tamsulosin HCl (Tamsulosin Hcl 0.4 Mg Capsule) 0.4 mg PO DAILY [facility] Last Admin: 05/24/25 08:33 Dose: 0.4 mg Thiamine HCl (Thiamine Hcl 100 Mg Tablet) 100 mg PO DAILY [facility] Stop: 05/26/25 08:59 Last Admin: 05/24/25 08:32 Dose: 100 mg Allergies Allergies Allergy/AdvReac Type Severity Reaction Status Date / Time fish derived (fish) Allergy Anaphylaxis Verified 05/23/25 00:26 shellfish derived Allergy Anaphylaxis Verified 05/23/25 00:26 Assessment & Plan Assessment & Plan (1) Alcohol use disorder, severe, dependence: Status: Acute Code(s): F10.20 - Alcohol dependence, uncomplicated Assessment and Plan: * continue to monitor CIWA scores q 4. Currently with mild withdrawal. Lorazepam q4HPRN * methadone has been restarted Total time managing care of this patient today __20__ minutes.
--- NOTE | 2025-05-24 19:28 | PC.NURSE ---
Gregoria CONTRERAS from S called for update,
--- NOTE | 2025-05-24 23:55 | MHC.RECOVRN ---
Late entry: TW met with pt in [phone] to provide support and resources after consult placed to Addiction Medicine for AUD. Pt was bright, pleasant, and engaged and utilizing humor. He was noted to be jaundiced and have slight tremor but otherwise denied etoh withrawal symptoms, Pt's primary complaint was ongoing pain which he states is chronic and due to ongoing health issues. 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 He reports consuming 1 pint of whiskey at that timee. He states he has attended AA and has a sponsor with whom he is in contact with. Pt reports attending [facility] where he receives 85mg of methadone daily. Pt states he would like to continue receiving his dose at after discharge. ACs team to meet with pt again in the morning to offer continued support and resources and is available for further questions or concerns.
[2025-05-25] VITALS (8 sets, daily range): BP systolic 111–132; BP diastolic 60–79; PULSE 68–84; RESP 16–20; TEMP 36.3–36.7; O2SAT 95–97
[2025-05-25] MEDS: oxyCODONE HCl Immed Release 5 MG TABLET 10 MG PO ×3 (04:18→19:46)
--- NOTE | 2025-05-25 07:24 | P.PNIM_ITS ---
Subjective Subjective Date of Service: 05/25/25 Interval History: Seen and examined this morning Interval history: oriented x3 but dazed and stumbling over words. Refusing lactulose. Ammonia 125--> 86. Reports 9/10 anxiety. Pain at bedtime 6/10 in abd. Has been getting oxycodone 10mg as well as artie ativan. CIWA this morning 13. *Vape pen found on person. Reports its his dads and he does not smoke this. Physical Exam 2 Exam: Exam: Constitutional - Awake and Alert, No apparent distress Eyes - PERRLA, EOMI Cardiovascular - S1S2, RRR, No edema Respiratory - Normal lung expansion, Normal respiratory effort, No respiratory distress, CTA bilaterally Gastrointestinal - ND; +BS; mild diffuse ttp without guarding, +fluid wave, + asterixis Extremities - no calf tenderness bilaterally, no swelling Skin - Warm/Dry. Jaundice, scleral icterus Neurological - Alert & oriented x3, but dazed, some jumbled speech and stumbling over words when explaining why he is here Psychological - Appropriate affect Vital Signs: Vital Signs: Last Vital Signs Temp 97.4 F 05/25/25 04:00 Pulse 72 05/25/25 04:00 Resp 16 05/25/25 04:00 BP 124/68 05/25/25 04:00 Pulse Ox 96 05/25/25 04:00 O2 Del Method Room Air 05/25/25 04:00 BMI result Body Mass Index 36.6 Objective Data Active Medications Acetaminophen (Acetaminophen 325 Mg Tablet) 650 mg PO Q6H PRN PRN Reason: Pain, Mild 1-3,fever,headache Calcium Carbonate (Calcium Carbonate 750 Mg Tab.Chew) 750 mg PO Q4H PRN PRN Reason: Heartburn Furosemide (Furosemide 40 Mg Tablet) 40 mg PO DAILY [facility]; Protocol Last Admin: 05/24/25 08:32 Dose: 40 mg Documented By: DANIEL Hydroxyzine HCl (Hydroxyzine Hcl 25 Mg Tablet) 25 mg PO Q6H PRN PRN Reason: Anxiety Last Admin: 05/24/25 21:16 Dose: 25 mg Documented By: [place] Lactulose (Lactulose 20 Gm/30 Ml Solution) 30 gm PO 5XD ARTIE Last Admin: 05/25/25 06:01 Dose: Not Given Documented By: KY Non-Admin Reason: Patient Refused Lorazepam (Lorazepam 1 Mg Tablet) 0.5 mg PO Q6H PRN; Taper PRN Reason: Alcohol Withdrawal Stop: 05/27/25 06:29 Last Admin: 05/25/25 06:47 Dose: 0.5 mg Documented By: [place] Magnesium Hydroxide (Milk Of Magnesia 30 Ml Oral.Susp) 30 ml PO DAILY PRN PRN Reason: Constipation Magnesium Oxide (Magnesium Oxide 400 Mg Tablet) 400 mg PO DAILY [facility] Last Admin: 05/24/25 08:33 Dose: 400 mg Documented By: DANIEL Melatonin (Melatonin 3 Mg Tablet) 6 mg PO BEDTIME PRN PRN Reason: Insomnia Last Admin: 05/24/25 21:22 Dose: 6 mg Documented By: [place] Methadone HCl (Methadone Hcl 20 Mg/2 Ml Oral.Conc) 85 mg PO DAILY [facility] Last Admin: 05/24/25 08:34 Dose: 85 mg Documented By: DANIEL Co-signed By: VALARIE Multivitamins/Vitamin C (Multivitamin Tablet) 1 tab PO DAILY [facility] Stop: 05/26/25 08:59 Last Admin: 05/24/25 08:30 Dose: 1 tab Documented By: DANIEL Nicotine Polacrilex (Nicotine Polacrilex 2 Mg Gum) 2 mg BUCCAL Q2H PRN PRN Reason: Nicotine Cravings Last Admin: 05/24/25 21:16 Dose: 2 mg Documented By: [place] Ondansetron HCl (Ondansetron Hcl 4 Mg/2 Ml Vial) 4 mg IVPUSH Q8H PRN PRN Reason: Nausea and Vomiting Last Admin: 05/23/25 10:44 Dose: 4 mg Documented By: ROSELIA Oxycodone HCl (Oxycodone Hcl Immed Release 5 Mg Tablet) 10 mg PO Q6H PRN PRN Reason: abdominal pain Last Admin: 05/25/25 04:18 Dose: 10 mg Documented By: [place] Rifaximin (Rifaximin 550 Mg Tablet) 550 mg PO BID [facility] Last Admin: 05/24/25 21:16 Dose: 550 mg Documented By: [place] Sertraline HCl (Sertraline Hcl 100 Mg Tablet) 100 mg PO DAILY [facility] Last Admin: 05/24/25 10:51 Dose: 100 mg Documented By: DANIEL Sodium Chloride (0.9 % Sodium Chloride Flush 3 Ml Syringe) 3 ml IVFLUSH QSHIFT [facility] Last Admin: 05/24/25 21:17 Dose: 3 ml Documented By: [place] Spironolactone (Spironolactone 25 Mg Tablet) 50 mg PO DAILY [facility]; Protocol Last Admin: 05/24/25 08:30 Dose: 50 mg Documented By: DANIEL Tamsulosin HCl (Tamsulosin Hcl 0.4 Mg Capsule) 0.4 mg PO DAILY [facility] Last Admin: 05/24/25 08:33 Dose: 0.4 mg Documented By: DANIEL Thiamine HCl (Thiamine Hcl 100 Mg Tablet) 100 mg PO DAILY [facility] Stop: 05/26/25 08:59 Last Admin: 05/24/25 08:32 Dose: 100 mg Documented By: DANIEL Labs 05/25/25 07:53 05/25/25 07:53 Labs: Laboratory Results - last 24 hr 05/23/25 05/24/25 05/24/25 15:56 08:26 12:14 Smear Path Review SEE NOTE Ammonia 146 H 126 H Assessment and Plan (1) Hepatic encephalopathy: Status: Acute Plan Patient is a 34-year-old male with a past medical history significant for end- stage liver disease/cirrhosis, hepatitis-C untreated, hydrops of the gallbladder, substance abuse on methadone, and Class 3 obesity who presented to the ED due to jaundice, dizziness and a fall with head strike. Found to have hepatic encephalopathy. Hepatic encephalopathy with multiple falls Ammonia level 147, 86 today. Initially compliant with lactulose. Has been refusing x24 hours. Remains somewhat dazed and disoriented to situation. +asterixis. Follow ammonia level- repeat at 12pm LFTs stable, near baseline. Follow labs Alcohol level [address] negative, c-spine CT negative Lactulose changed to 30mg5x per day to achieve 2-3 loose stools per day. Continue rifixamin 550mg BID. Reports multiple episodes of diarrhea. Not noted per RN. However has hypokalemia, monitor Alcoholic liver disease/hepatitis Evidenced by eleavted LFTs near baseline. RUQ pain and jaundice. Steroids contraindicated due to untreated hep C per last admission A/P CT without acute process, cirrhosis with portal HTN-Followed by GI CIWA score 13 this morning-Received Ativan. Elevated CIWA also elevated due to baseline anxiety and hepatic encephalopathy Addiction med following Oxy for pain Q6 hours Seizure precautions Continue folate, thiamine, multivitamin Acute hypokalemia Possibly d/t Gi losses Replete and monitor Chronic pancytopenia r/t cirrhosis Follow labs Substance use disorder Methadone dosing of 85 mgs ordered Tobacco use disorder Smoking cessation encouraged Nicotine gum per patient request *Vape pen confiscated. Locked with patient belongings CODE status: DNR/DNI VTE prophy: pneumoboots Pt with hepatic encephalopathy with multiple falls secondary to alcoholic liver disease, requiring admission for at least 2 midnights stay for improvement of encephalopathy and monitoring. Quality Stroke Does the patient have a stroke diagnosis?: No VTE Prior VTE?: No VTE Risk Level:: Medical - moderate - high VTE Device Contraindication: N/A - Device Ordered VTE Drug Contraindication: Treatment Not Indicated
[2025-05-25 08:14] LABS: Hematocrit 33.9 % (42.0-52.0); Hemoglobin 11.7 g/dl (14.0-18.0); Imm Gran Abs Auto 0.01 X10*3/uL (0.00-0.03); Imm Gran Pct Auto 0.5 % (0.0-0.4); Lymphocytes Absolute Auto 1.2 X10*3/uL (1.2-4.9); MANUAL DIFF FLAG SCAN; Mean Corpuscular HGB Conc 34.5 g/dl (31.0-36.0); Mean Corpuscular Hemoglobin 33.1 pg (27.0-33.0); Mean Corpuscular Volume 96.0 fL (80.0-98.0); NRBC Abs Auto 0.000 X10*3/uL (0.0-0.012); NRBC Pct Auto 0.0 /100WBC (0.0-0.2); Platelet Count 47 X10*3/uL (160-400); Red Blood Count 3.53 X10*6/uL (4.60-5.80); SCAN SMEAR FLAG 1; White Blood Count 2.2 X10*3/uL (4.8-10.8)
[2025-05-25 08:21] LABS: Ammonia 85 umol/L (13-55)
[2025-05-25 08:29] LABS: Anion Gap 12 (12-20); Blood Urea Nitrogen 6 mg/dL (9-16); Calcium 7.9 mg/dL (8.4-10.2); Carbon Dioxide 27 mmol/L (22-29); Chloride 100 mmol/L (96-108); Creatinine Clr Calc Pharmacy 200.2; Estimated Glomerular Filt Rate > 60; Potassium 3.2 mmol/L (3.3-5.1); Sodium 136 mmol/L (135-145)
[2025-05-25 08:34] LABS: Alanine Aminotransferase 68 U/L (0-40); Albumin Level 2.3 g/dL (3.5-5.0); Alkaline Phosphatase 168 U/L (39-117); Anion Gap 10 (12-20); Aspartate Amino Transferase 159 U/L (5-37); Blood Urea Nitrogen 6 mg/dL (9-16); Calcium 7.9 mg/dL (8.4-10.2); Carbon Dioxide 27 mmol/L (22-29); Chloride 103 mmol/L (96-108); Creatinine Clr Calc Pharmacy 184.1; Estimated Glomerular Filt Rate > 60; Potassium 3.2 mmol/L (3.3-5.1); Sodium 137 mmol/L (135-145); Total Protein 5.9 g/dL (6.5-8.0)
[2025-05-25] MEDS: 0.9 % Sodium Chloride Flush 3 ML SYRINGE IVFLUSH ×2 (09:15→19:48)
[2025-05-25] MEDS: methADONE HCl 20 MG/2 ML ORAL.CONC 85 MG PO (09:15)
[2025-05-25] MEDS: Potassium Chloride Packet 20 MEQ PACKET 40 MEQ PO (09:27)
[2025-05-25 12:37] LABS: Ammonia 100 umol/L (13-55)
--- NOTE | 2025-05-25 13:43 | MHC.RECOVRN ---
Attempted to meet w/pt for an addiction/recovery eval. Pt somnolent. Pt talking with eyes half closed, mumbling, and falling asleep. Respirations are WNL. Pt not able to meaningfully participate in an assessment at this time. Will attempt to meet w/ pt again at a different time.
[2025-05-26] MEDS: oxyCODONE HCl Immed Release 5 MG TABLET 10 MG PO ×4 (01:51→21:31)
[2025-05-26 03:21] VITALS: BP 111/63; PULSE 88; RESP 18; TEMP 36.6; O2SAT 97
[2025-05-26 07:26] VITALS: BP 108/81; PULSE 85; RESP 16; TEMP 36.3; O2SAT 96
[2025-05-26 07:46] LABS: MANUAL DIFF FLAG NO
[2025-05-26 08:00] LABS: Hematocrit 36.8 % (42.0-52.0); Hemoglobin 12.7 g/dl (14.0-18.0); Imm Gran Abs Auto 0.01 X10*3/uL (0.00-0.03); Imm Gran Pct Auto 0.3 % (0.0-0.4); Lymphocytes Absolute Auto 1.2 X10*3/uL (1.2-4.9); Mean Corpuscular HGB Conc 34.5 g/dl (31.0-36.0); Mean Corpuscular Hemoglobin 32.8 pg (27.0-33.0); Mean Corpuscular Volume 95.1 fL (80.0-98.0); NRBC Abs Auto 0.000 X10*3/uL (0.0-0.012); NRBC Pct Auto 0.0 /100WBC (0.0-0.2); Red Blood Count 3.87 X10*6/uL (4.60-5.80); White Blood Count 3.1 X10*3/uL (4.8-10.8)
[2025-05-26 08:01] LABS: Ammonia 97 umol/L (13-55)
[2025-05-26 08:11] LABS: Platelet Count 50 X10*3/uL (160-400)
[2025-05-26 08:21] LABS: Alanine Aminotransferase 71 U/L (0-40); Albumin Level 2.5 g/dL (3.5-5.0); Alkaline Phosphatase 204 U/L (39-117); Anion Gap 12 (12-20); Aspartate Amino Transferase 156 U/L (5-37); Blood Urea Nitrogen 6 mg/dL (9-16); Calcium 8.0 mg/dL (8.4-10.2); Carbon Dioxide 26 mmol/L (22-29); Chloride 105 mmol/L (96-108); Creatinine Clr Calc Pharmacy 187.1; Estimated Glomerular Filt Rate > 60; Potassium 3.4 mmol/L (3.3-5.1); Sodium 140 mmol/L (135-145); Total Protein 6.5 g/dL (6.5-8.0)
[2025-05-26] MEDS: methADONE HCl 20 MG/2 ML ORAL.CONC 85 MG PO (08:22)
[2025-05-26 11:34] VITALS: BP 121/65; PULSE 87; RESP 16; TEMP 36.6; O2SAT 95
--- NOTE | 2025-05-26 11:52 | HO.PM.IMPN ---
Subjective Subjective Date of Service: 05/26/25 Interval History: sleepy Physical Exam Exam: Exam: Lethargic oriented x3 adequate insight, jaundiced, tremulous, abdomen soft and nontender Vital Signs: Vital Signs: Last Vital Signs Temp 97.9 F 05/26/25 11:34 Pulse 87 05/26/25 11:34 Resp 16 05/26/25 11:34 BP 121/65 05/26/25 11:34 Pulse Ox 95 05/26/25 11:34 O2 Del Method Room Air 05/26/25 11:34 BMI result Body Mass Index 36.6 Objective Data Active Medications Acetaminophen (Acetaminophen 325 Mg Tablet) 650 mg PO Q6H PRN PRN Reason: Pain, Mild 1-3,fever,headache Last Admin: 05/25/25 15:44 Dose: 650 mg Documented By: ZURI Calcium Carbonate (Calcium Carbonate 750 Mg Tab.Chew) 750 mg PO Q4H PRN PRN Reason: Heartburn Furosemide (Furosemide 40 Mg Tablet) 40 mg PO DAILY [facility]; Protocol Last Admin: 05/26/25 08:27 Dose: 40 mg Documented By: CAMI Hydroxyzine HCl (Hydroxyzine Hcl 25 Mg Tablet) 25 mg PO Q6H PRN PRN Reason: Anxiety Last Admin: 05/26/25 00:02 Dose: 25 mg Documented By: MARILU Lactulose (Lactulose 20 Gm/30 Ml Solution) 30 gm PO 5XD [facility] Last Admin: 05/26/25 11:01 Dose: 30 gm Documented By: CAMI Lorazepam (Lorazepam 1 Mg Tablet) 0.5 mg PO Q6H PRN; Taper PRN Reason: Alcohol Withdrawal Stop: 05/27/25 06:29 Last Admin: 05/26/25 08:25 Dose: 0.5 mg Documented By: CAMI Magnesium Hydroxide (Milk Of Magnesia 30 Ml Oral.Susp) 30 ml PO DAILY PRN PRN Reason: Constipation Magnesium Oxide (Magnesium Oxide 400 Mg Tablet) 400 mg PO DAILY [facility] Last Admin: 05/26/25 08:27 Dose: 400 mg Documented By: CAMI Melatonin (Melatonin 3 Mg Tablet) 6 mg PO BEDTIME PRN PRN Reason: Insomnia Last Admin: 05/24/25 21:22 Dose: 6 mg Documented By: [place] Methadone HCl (Methadone Hcl 20 Mg/2 Ml Oral.Conc) 85 mg PO DAILY [facility] Last Admin: 05/26/25 08:22 Dose: 85 mg Documented By: CAMI Co-signed By: FARIDA Nicotine Polacrilex (Nicotine Polacrilex 2 Mg Gum) 2 mg BUCCAL Q2H PRN PRN Reason: Nicotine Cravings Last Admin: 05/26/25 06:43 Dose: 2 mg Documented By: FARIDA Ondansetron HCl (Ondansetron Hcl 4 Mg/2 Ml Vial) 4 mg IVPUSH Q8H PRN PRN Reason: Nausea and Vomiting Last Admin: 05/23/25 10:44 Dose: 4 mg Documented By: CABCORY Oxycodone HCl (Oxycodone Hcl Immed Release 5 Mg Tablet) 10 mg PO Q6H PRN PRN Reason: abdominal pain Last Admin: 05/26/25 08:26 Dose: 10 mg Documented By: CAMI Rifaximin (Rifaximin 550 Mg Tablet) 550 mg PO BID [facility] Last Admin: 05/26/25 08:25 Dose: 550 mg Documented By: CAMI Sertraline HCl (Sertraline Hcl 100 Mg Tablet) 100 mg PO DAILY [facility] Last Admin: 05/26/25 08:25 Dose: 100 mg Documented By: CAMI Sodium Chloride (0.9 % Sodium Chloride Flush 3 Ml Syringe) 3 ml IVFLUSH QSHIFT [facility] Last Admin: 05/26/25 11:04 Dose: Not Given Documented By: CAMI Non-Admin Reason: unable to flush Spironolactone (Spironolactone 25 Mg Tablet) 50 mg PO DAILY [facility]; Protocol Last Admin: 05/26/25 08:25 Dose: 50 mg Documented By: CAMI Tamsulosin HCl (Tamsulosin Hcl 0.4 Mg Capsule) 0.4 mg PO DAILY [facility] Last Admin: 05/26/25 08:26 Dose: 0.4 mg Documented By: CAMI Labs 05/26/25 07:39 05/26/25 07:39 Labs: Laboratory Results - last 24 hr 05/25/25 05/26/25 12:18 07:39 MCV 95.1 MCH 32.8 MCHC 34.5 RDW 14.6 Plt Count 50 L MPV 10.6 Immature Gran % (Auto) 0.3 Neut % (Auto) 51.9 Lymph % (Auto) 38.8 [place] % (Auto) 7.1 Eos % (Auto) 1.3 Baso % (Auto) 0.6 Lymph # (Auto) 1.2 [place] # (Auto) 0.2 Eos # (Auto) 0.0 Baso # (Auto) 0.0 Abs Immat Gran (auto) 0.01 Absolute Neuts (auto) 1.6 L Absolute Nucleated RBC 0.000 Nucleated RBC % (auto) 0.0 Anion Gap 12 Estim Creat Clear Calc 187.1 Estimated GFR > 60 Random Glucose 135 H Calcium 8.0 L Total Bilirubin 6.8 H AST 156 H ALT 71 H Alkaline Phosphatase 204 H Ammonia 100 H 97 H Total Protein 6.5 Albumin 2.5 L Assessment and Plan (1) Hepatic encephalopathy: Status: Acute Plan 34M PMH HCV and alcoholic cirrhosis, polysubstance dependence, obesity presented with altered mental status Acute metabolic encephalopathy due to hepatic encephalopathy due to HCV and alcoholic cirrhosis complicated by chronic pancytopenia Continue lactulose, rifaximin Goal of 2-4 bowel movements per day Acute alcoholic hepatitis Encourage p.o. nutrition, monitor LFTs GI following Polysubstance dependence Methadone Acute hypokalemia Replace, monitor DVT prophylaxis-mechanical due to thrombocytopenia DNR/DNI reason for continued hospitalization: Still altered Quality Stroke Does the patient have a stroke diagnosis?: No VTE Prior VTE?: No VTE Risk Level:: Medical - moderate - high VTE Device Contraindication: N/A - Device Ordered VTE Drug Contraindication: Treatment Not Indicated
[2025-05-26 15:06] LABS: Magnesium 1.6 mg/dL (1.6-2.6)
--- NOTE | 2025-05-26 15:21 | PC.NURSE ---
Provider notified that this patient has moved his bowels 5 times , refused his Lactulose. no witnesses to this bowel movements. Provider only said ok
[2025-05-26 15:39] VITALS: BP 133/67; PULSE 78; RESP 16; TEMP 36.4; O2SAT 96
[2025-05-26] MEDS: Magnesium Sulfate/H2O 2 GM/50 ML PIGGYBACK IV (18:05)
[2025-05-26] MEDS: 0.9 % Sodium Chloride Flush 3 ML SYRINGE IVFLUSH ×2 (18:05→21:35)
--- NOTE | 2025-05-26 19:24 | PC.NURSE ---
Patient claimed to of vomited and moved his bowels multiple times and refused his Lactulose except for once with this RN. Provider is aware of refusing Lactulose there was no witnesses to either of the above by staff.
[2025-05-26 19:40] VITALS: BP 117/77; PULSE 99; RESP 16; TEMP 36.7; O2SAT 96
[2025-05-26 23:58] VITALS: BP 123/68; PULSE 89; RESP 18; TEMP 36.5; O2SAT 98
[2025-05-27] MEDS: oxyCODONE HCl Immed Release 5 MG TABLET 10 MG PO ×4 (02:48→13:20)
[2025-05-27 04:00] VITALS: BP 123/62; PULSE 84; RESP 16; TEMP 36.6; O2SAT 96
[2025-05-27] MEDS: 0.9 % Sodium Chloride Flush 3 ML SYRINGE IVFLUSH (07:30)
[2025-05-27] MEDS: methADONE HCl 20 MG/2 ML ORAL.CONC 85 MG PO (07:31)
[2025-05-27 08:00] VITALS: BP 132/80; PULSE 93; RESP 20; TEMP 37.1; O2SAT 93
[2025-05-27 08:24] LABS: Hematocrit 35.5 % (42.0-52.0); Hemoglobin 12.5 g/dl (14.0-18.0); Mean Corpuscular HGB Conc 35.2 g/dl (31.0-36.0); Mean Corpuscular Hemoglobin 33.1 pg (27.0-33.0); Mean Corpuscular Volume 93.9 fL (80.0-98.0); NRBC Abs Auto 0.000 X10*3/uL (0.0-0.012); NRBC Pct Auto 0.0 /100WBC (0.0-0.2); Red Blood Count 3.78 X10*6/uL (4.60-5.80); White Blood Count 3.4 X10*3/uL (4.8-10.8)
[2025-05-27 08:28] LABS: INTERNATIONAL NORM RATIO 1.5 (0.9-1.1); Prothrombin Time 17.4 SEC (10.9-12.4)
[2025-05-27 08:29] LABS: Platelet Count 47 X10*3/uL (160-400)
[2025-05-27 08:51] LABS: Alanine Aminotransferase 65 U/L (0-40); Albumin Level 2.4 g/dL (3.5-5.0); Alkaline Phosphatase 178 U/L (39-117); Anion Gap 8 (12-20); Aspartate Amino Transferase 141 U/L (5-37); Blood Urea Nitrogen 5 mg/dL (9-16); Calcium 7.8 mg/dL (8.4-10.2); Carbon Dioxide 29 mmol/L (22-29); Chloride 104 mmol/L (96-108); Creatinine Clr Calc Pharmacy 203.8; Estimated Glomerular Filt Rate > 60; Magnesium 1.8 mg/dL (1.6-2.6); Potassium 3.0 mmol/L (3.3-5.1); Sodium 138 mmol/L (135-145); Total Protein 6.1 g/dL (6.5-8.0)
[2025-05-27] MEDS: Potassium Chloride/H20 10 MEQ/100 ML PIGGYBACK 100 MEQ IV ×2 (09:23→10:33)
[2025-05-27] MEDS: Potassium Chloride Packet 20 MEQ PACKET 40 MEQ PO (09:29)
[2025-05-27 12:00] VITALS: BP 140/64; PULSE 97; RESP 16; TEMP 36.6; O2SAT 94
[2025-05-27 12:58] LABS: Anion Gap 14 (12-20); Blood Urea Nitrogen 5 mg/dL (9-16); Calcium 8.1 mg/dL (8.4-10.2); Carbon Dioxide 23 mmol/L (22-29); Chloride 105 mmol/L (96-108); Creatinine Clr Calc Pharmacy 178.3; Estimated Glomerular Filt Rate > 60; Potassium 3.5 mmol/L (3.3-5.1); Sodium 138 mmol/L (135-145)
--- NOTE | 2025-05-27 14:09 | PM.DS ---
DS: Providers Provider Date of Service: 05/27/25 Date of admission: 05/23/25 06:51 Date of discharge: 05/27/25 Primary care physician: Stephen Biggs MD Consults: 05/23/25 06:38 Addiction Medicine Provider Routine Consulting Provider: Addiction Covering Reason for consultation: etoh abuse, end stage liver disease Has provider been notified: No 05/23/25 13:43 Consult to Gastroenterology Routine Consulting Provider: [facility] Gastroenterology Services Reason for consultation: Portal HTN, End stage Liver DZ DS: Diagnosis Discharge Diagnosis (1) Hepatic encephalopathy: Status: Acute DS: Summary Hospital Course Hospital Course: From admission HPI: Date of Service: 05/23/25 Attending physician on admission: Maura Hernandez Chief Complaint: fall Patient is a 34-year-old male with a past medical history significant for end-stage liver disease/cirrhosis, hepatitis-C untreated, hydrops of the gallbladder, substance abuse on methadone, and Class 3 obesity who presented to the ED due to jaundice, dizziness and a fall with head strike. Patient is a poor prognosis with end-stage liver disease with continued alcohol abuse. He reports drinking at least 3 times a week still. The patient's mother was unaware of this and reports that she has been monitoring him. Alcohol level on arrival 96. He has a history of substance abuse but reports that he is only using methadone, no additional drug use. He reports nausea and vomiting last night, none currently. He also has right upper quadrant pain. He reports a headache and has bruising on his forehead from his fall. No visual changes. Hospital course: Pt is admitted to the hospital for acute hepatic encephalopathy with frequent falls at home in the setting of continued alcohol use and non adherence with lactulose at home. Pt was seen and evaluated by GI and was treated with lactulose 30 g t.i.d. to good effect and encephalopathy resolved. Pt had intermittent hypokalemia which was supplemented with both IV and p.o. potassium. Pt was strongly encouraged to stop drinking in order to be treated for both hepatitis-C as well as be a possible candidate for liver transplant. Pt is encouraged to use whenever social, familial, or community support he can to ensure sobriety. Pt also will strongly encouraged to adhere to both lactulose therapy as well as rifaximin. Pt should also continue furosemide, spironolactone, folic acid, thiamine, and daily multivitamin. Pt should follow up with PCP in 1 week time for routine post hospitalization follow up in routine labs. For chronic abdominal and back pain pt was prescribed a short course of oxycodone and referred to [facility] Pain Clinic. For mood disorder continue clonidine, lorazepam, and sertraline For polysubstance use disorder continue methadone For hypomagnesemia continue magnesium supplementation Time Attestation Discharge Coordination Time (in mins): 35 Quality: Safe Use of Opioids Does Pt have an Active Cancer Diagnosis on the Problem List?: No Quality: Stroke Does the patient have a stroke diagnosis?: No Physical Exam Exam: Exam: General: AOx3, no acute distress ENT: Sclera icteric Resp: CTA bilaterally CVS: S1, S2, RRR GI: Mild distention, mildly firm, mild diffuse tenderness Skin: Warm, dry, jaundiced Neuro: Cranial nerves II-XII grossly intact bilaterally. Motor grossly intact bilaterally Extremities: 1+ bilateral pitting edema; compression stockings on Psych: Appropriate affect Vital Signs: Vital Signs: Last Vital Signs Temp 97.8 F 05/27/25 12:00 Pulse 97 05/27/25 12:00 Resp 16 05/27/25 12:00 BP 140/64 H 05/27/25 12:00 Pulse Ox 94 05/27/25 12:00 O2 Del Method Room Air 05/27/25 12:00 BMI result Body Mass Index 36.6 DS: Data Data Completed and Pending Completed studies during hospitalization [Text1]: Procedures Detoxification Services for Substance Abuse Treatment (12/13/24) Labs on day of discharge: Laboratory Results - last 24 hr 05/26/25 05/27/25 05/27/25 07:39 07:48 12:19 WBC 3.4 L RBC 3.78 L Hgb 12.5 L Hct 35.5 L MCV 93.9 MCH 33.1 H MCHC 35.2 RDW 14.4 Plt Count 47 L MPV 10.8 Absolute Nucleated RBC 0.000 Nucleated RBC % (auto) 0.0 PT 17.4 H D INR 1.5 H Sodium 138 138 Potassium 3.0 L 3.5 Chloride 104 105 Carbon Dioxide 29 23 Anion Gap 8 L 14 BUN 5 L 5 L Creatinine 0.56 0.64 Estim Creat Clear Calc 203.8 178.3 Estimated GFR > 60 > 60 Random Glucose 119 H 142 H Calcium 7.8 L 8.1 L Magnesium 1.6 1.8 Total Bilirubin 7.2 H Direct Bilirubin 4.9 H AST 141 H ALT 65 H Alkaline Phosphatase 178 H Total Protein 6.1 L Albumin 2.4 L Discharge Plan Discharge Anticipated Discharge Date/Time: 05/27/25 13:47 Patient Disposition: Home, Self-Care Discharge Diagnosis: Acute hepatic encephalopathy Referrals: [facility] Pain Management [Provider Group, Pain Management] - 1 Week Referral Note: Chronic abdominal pain in the setting of alcoholic cirrhosis Physician,Unknown J [Physician, Medical] - 1 Week Discharge Medications: New oxycodone 10 mg tablet 10 mg PO TID PRN (Reason: pain (scale score 7-10)) Qty: 6 0RF Rx Instructions: Take one tablet up to three times a day for severe pain. Continued furosemide 40 mg tablet 40 mg PO DAILY 90 Days Qty: 90 1RF methadone 10 mg/mL Concentrate 85 mg PO DAILY Rx Instructions: [facility] [phone] clonidine HCl 0.1 mg tablet 0.1 mg PO TID sertraline 100 mg tablet 100 mg PO DAILY thiamine HCl (vitamin B1) 100 mg tablet 200 mg PO DAILY gabapentin 800 mg tablet 800 mg PO TID folic acid 1 mg tablet 1 mg PO DAILY spironolactone 50 mg tablet 50 mg PO DAILY magnesium oxide 400 mg (241.3 mg magnesium) tablet 400 mg PO DAILY tamsulosin 0.4 mg capsule 0.4 mg PO DAILY melatonin 5 mg Tablet 5 - 10 mg PO BEDTIME PRN (Reason: Sleep) Xifaxan 550 mg Tablet 550 mg PO BID Qty: 60 0RF nicotine 21 mg/24 hr patch 24 hour 1 patch topical DAILY lorazepam 1 mg Tablet 1 mg PO BID PRN (Reason: Anxiety, Mild) Qty: 14 0RF oxycodone 10 mg tablet 10 mg PO Q8H PRN (Reason: pain) Qty: 14 0RF Rx Instructions: Partial Fill upon patient request. lactulose 10 gram/15 mL solution 60 ml PO TID Linzess 145 mcg capsule 145 mcg PO DAILY Discharge Orders: Discharge Order (Routine); Ordered 05/27/25 Ordered By: Sunitha Armas Activity on Discharge: As tolerated Stand Alone Forms: Patient Portal Discharge page Print Language: Albanian Care Plan Goals: See below Health Concerns: Hepatic encephalopathy Alcoholic cirrhosis Alcohol use disorder Plan of Treatment: You were admitted to the hospital for acute hepatic encephalopathy in in the setting of alcoholic cirrhosis with continued alcohol use and nonadherence with home medications. You were treated with lactulose and encephalopathy resolved. You were also noted to have low potassium for which he received both oral and IV supplementation. For alcoholic cirrhosis, UR strongly encouraged to stop drinking. You will not be able to be treated for either hep C will be a candidate for a liver transplant if you continue to drink alcohol. You were also encouraged to adhere to year lactulose therapy 3 times a day with a goal of 3 soft stools daily. Eat a high protein and calorie diet. You will also be discharged on a short course of oxycodone and be given a referral to the [facility] Pain Clinic. Continue to follow up with GI clinic in 1-2 weeks. Should continue all of your other home medications. Assessment: See discharge summary
--- NOTE | 2025-05-27 14:34 | MHC.CM.PN ---
PT MEDICALLY CLEARED FOR DC HOME SELF CARE, PT'S DC'D PRIOR TO RECOVERY TEAM FOLLOW UP, PT HAS ARRANGED TRANSPORT HOME.
== END 2025-05-27 14:16 | disposition home or self-care (01) | DRG 280 ==
LOC: HO.ED 05-23 05:58 → HO.EDOVER 05-23 06:57 → HO.IMC 05-24 16:20
PROVIDERS: Internal Medicine; Nurse Practitioner Family; Physician Assistant; Admitting Provider Physician Assistant; Emergency Provider Emergency Medicine; PCP Internal Medicine; Visit Provider Student in an Organized Health Care Education/Training Program
DX: K76.82 Hepatic encephalopathy (principal); K70.10 Alcoholic hepatitis without ascites; G93.41 Metabolic encephalopathy; D61.818 Other pancytopenia; B19.20 Unspecified viral hepatitis C without hepatic coma; E87.6 Hypokalemia; E66.813 Obesity, class 3; K70.30 Alcoholic cirrhosis of liver without ascites; F10.20 Alcohol dependence, uncomplicated; Z66 Do not resuscitate; F19.10 Other psychoactive substance abuse, uncomplicated; F11.20 Opioid dependence, uncomplicated; Y90.4 Blood alcohol level of 80-99 mg/100 ml; R29.6 Repeated falls; F17.210 Nicotine dependence, cigarettes, uncomplicated; Z71.3 Dietary counseling and surveillance; Z68.36 Body mass index [BMI] 36.0-36.9, adult; Z91.148 Patient's other noncompliance with medication regimen for other reason; Z71.6 Tobacco abuse counseling; Z79.899 Other long term (current) drug therapy
CPT/HCPCS: 36415; 70450; 72125; 74177; 80048; 80053; 80076; 80307; 81001; 82140; 83735; 85025; 85027; 85610; 99285; J1171; J2270; J2405; J3475; J3480; Q9957; Q9967

== ENCOUNTER → 2025-05-23 02:05 | Outpatient (BNV) | payer OTHER, SELFPAY | PROVIDERS: Emergency Provider Emergency Medicine; Visit Provider Radiology Vascular & Interventional Radiology | DX: R16.2 Hepatomegaly with splenomegaly, not elsewhere classified (principal); M50.321 Other cervical disc degeneration at C4-C5 level; S09.90XA Unspecified injury of head, initial encounter | CPT/HCPCS: 70450; 72125; 74177 ==

== ENCOUNTER → 2025-05-23 06:51 | Outpatient (BNV) | payer OTHER, SELFPAY | PROVIDERS: Admitting Provider Physician Assistant; Emergency Provider Emergency Medicine; Visit Provider Internal Medicine Gastroenterology | DX: K74.60 Unspecified cirrhosis of liver (principal); K76.82 Hepatic encephalopathy; K76.9 Liver disease, unspecified; K59.09 Other constipation | CPT/HCPCS: 99232 ==

== ENCOUNTER → 2025-05-23 06:51 | Outpatient (BNV) | payer OTHER, SELFPAY | PROVIDERS: Admitting Provider Physician Assistant; Emergency Provider Emergency Medicine; Visit Provider Nurse Practitioner Psychiatric/Mental Health | DX: F10.20 Alcohol dependence, uncomplicated (principal) | CPT/HCPCS: 99232 ==

== ENCOUNTER → 2025-05-23 06:51 | Outpatient (BNV) | payer OTHER, SELFPAY | PROVIDERS: Admitting Provider Physician Assistant; Emergency Provider Emergency Medicine; Visit Provider Physician Assistant | DX: K76.82 Hepatic encephalopathy (principal) | CPT/HCPCS: 99232 ==

== ENCOUNTER 2025-06-04 19:46 | Inpatient (IN) | payer OTHER, SELFPAY ==
--- NOTE | 2025-06-04 | ECG_ITS ---
Test Reason : ABDOMINAL PAIN Blood Pressure : */* mmHG Vent. Rate : 72 BPM Atrial Rate : 72 BPM P-R Int : 188 ms QRS Dur : 76 ms QT Int : 298 ms P-R-T Axes : 40 1 -5 degrees QTcB Int : 326 ms Normal sinus rhythm Cannot rule out Inferior infarct , age undetermined ; could also be related to body habitus Abnormal ECG No previous ECGs available Referred By: Generic ED Physician Electronically Signed By: TINO FRANK
--- NOTE | ~2025-06-04 | CT_ITS ---
CLINICAL HISTORY: Fall down stairs CT cervical spine without contrast Comparison: CT/SR - CT CERVICAL SPINE WO IV CON - 05/23/25 04:08 EDT Findings: Normal vertebral body alignment. No significant degenerative change. Chronic anterior fracture fragment at C4-5. No acute fractures or dislocations. No acute findings on limited view of the intracranial contents. Soft tissues of the neck are normal. See same day CT of the chest for more details IMPRESSION: No acute findings. This document has been electronically signed by: Yaya Pollard MD on 06/04/2025 21:41:37
--- NOTE | ~2025-06-04 | CT_ITS ---
CLINICAL HISTORY: Fall. right chest pain CT chest without contrast Comparison: CT/SR - CT ABDOMEN PELVIS W IV CON - 05/23/25 04:[address] - CT ABDOMEN W IV CON - 12/14/24 17:43 EST Findings: The heart is normal size. The visualized thyroid and mediastinum are unremarkable. No pneumothorax. 1.6 cm left basilar subpleural nodule, decreased from 12/14/2024 CT, where it measured 2.2 cm. This favors benign etiology. Lungs are otherwise clear. See same day of the CT abdomen and pelvis for more details Gynecomastia. No acute fractures. IMPRESSION: No evidence of thoracic injury This document has been electronically signed by: Yaya Pollard MD on 06/04/2025 21:37:29
--- NOTE | ~2025-06-04 | CT_ITS ---
CLINICAL HISTORY: Fall CT abdomen and pelvis without contrast Comparison: CT/SR - CT ABDOMEN PELVIS W IV CON - 05/23/25 04:08 EDT Findings: See same day CT of the chest Markedly distended gallbladder without CT evidence of cholecystitis. Cirrhotic liver with no obvious masses on this noncontrast CT. Multiple varices. See recent CT of the abdomen and pelvis on 05/23/2025 for more details. Splenomegaly. Adrenal glands unremarkable. No urolithiasis, hydronephrosis, or hydroureter. Pelvic contents unremarkable. No free fluid. Gynecomastia. No acute fractures. IMPRESSION: No acute findings. Liver cirrhosis and related sequelae This document has been electronically signed by: Yaya Pollard MD on 06/04/2025 21:26:29
--- NOTE | ~2025-06-04 | CT_ITS ---
CLINICAL HISTORY: fall down stairs CT head without contrast Comparison: CT/SR - CT HEAD/BRAIN WO IV CON - 05/23/25 04:08 EDT Findings: No intra-axial mass, midline shift, hydrocephalus, or acute hemorrhage. No significant atrophy. 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 The visualized paranasal sinuses and mastoid air cells are normal. The orbits are unremarkable. No skull fracture. IMPRESSION: 1. No acute intracranial findings. This document has been electronically signed by: Yaya Pollard MD on 06/04/2025 21:46:05
[2025-06-04 20:18] VITALS: BP 130/70; PULSE 74; RESP 14; TEMP 36.5; O2SAT 97; BMI 37.2
--- NOTE | 2025-06-04 20:28 | ED.GENADULT ---
HPI - General Adult General Chief complaint: General Medical Stated complaint: not takin meds Time Seen by Provider: 06/05/25 00:44 Source: patient, RN notes reviewed and old records reviewed Mode of arrival: ambulatory Limitations: altered mental status (Intoxication, hepatic encephalopathy) History of Present Illness ED Provider: Dr. Eileen Stokes HPI narrative: 35-year-old male with extensive past medical history including end-stage alcoholic liver cirrhosis, hepatitis-C, substance use on methadone presenting with frequent falls, dizziness, chest pain and right upper quadrant abdominal pain ongoing for the last 2 days. Patient states he fell down about 8 stairs immediately prior to arrival. Admits he hit his head and pass out but was able to get up on his own and ambulated into the emergency department. Admits to drinking about a pt of [place] daily. Last drink was around 8:00 a.m. this morning. Denies other illicit substance use. Has not been taking his lactulose and can not give a reason why. No reported fever. Denies nausea or vomiting. Denies bowel changes including diarrhea. Related Data Home Medications ?Medication ?Instructions ?Recorded ?Confirmed methadone 10 mg/mL oral concentrate 90 mg PO DAILY 03/03/24 06/05/25 clonidine HCl 0.1 mg tablet 0.1 mg PO TID 12/13/24 06/05/25 gabapentin 800 mg tablet 800 mg PO TID 12/13/24 06/05/25 sertraline 100 mg tablet 100 mg PO DAILY 12/13/24 06/05/25 thiamine HCl (vitamin B1) 100 mg 200 mg PO DAILY 12/13/24 06/05/25 tablet magnesium oxide 400 mg (241.3 mg 400 mg PO DAILY 02/12/25 06/05/25 magnesium) tablet melatonin 5 mg tablet 5 - 10 mg PO BEDTIME PRN Sleep 02/12/25 06/05/25 tamsulosin 0.4 mg capsule 0.4 mg PO DAILY 02/12/25 06/05/25 lactulose 10 gram/15 mL oral 60 ml PO TID 03/28/25 06/05/25 solution nicotine 21 mg/24 hr daily 1 patch topical DAILY PRN Smoking 04/30/25 06/05/25 transdermal patch Cessation spironolactone 50 mg tablet 50 mg PO DAILY 05/23/25 06/05/25 lorazepam 0.5 mg tablet 0.5 mg PO BID PRN Anxiety 06/05/25 06/05/25 Previous Rx's ?Medication ?Instructions ?Recorded rifaximin 550 mg tablet (Xifaxan) 550 mg PO BID #60 tabs 02/15/25 furosemide 40 mg tablet 40 mg PO DAILY 90 days #90 tabs 04/04/25 Allergies Allergy/AdvReac Type Severity Reaction Status Date / Time fish derived (fish) Allergy Anaphylaxis Verified 06/04/25 20:21 shellfish derived Allergy Anaphylaxis Verified 06/04/25 20:21 Pork/Porcine Containing AdvReac Gastrointestinal Verified 06/04/25 20:22 Products Upset Review of Systems Review of Systems: as per HPI, full review of systems performed and negative but for the above mentioned pertinent positives and negatives. [facility] Past Medical History Medical History Multiple falls Chronic constipation Methadone maintenance therapy patient Alcohol use disorder, severe, dependence Liver failure Alcoholic cirrhosis of liver with ascites Cirrhosis Cirrhosis Edema Alcohol abuse Increased ammonia level Substance abuse Opiate use Social History Social History Household Members: Other Household Members Other:: Brother Housing: House Do you presently have visiting nurse or other home services: No Alcohol intake: current Alcohol intake frequency: 3 or more drinks per day Alcohol type: hard liquor Comment: refusing alarms Patient Tobacco Use Status: Current everyday Tobacco user Tobacco use type: Cigarette and Smokeless Tobacco Cigarette Packs Per Day: 1 Cigarettes Per Day: 20.0 Smoked in Last 30 Days: Yes e-Cigarette/Vaping Use: Currently Using Patient Interested in Nicotine Replacement: Yes Patient Given Instructions on How to Stop Smoking: Yes Date Education Initiated: 06/05/25 Use of substances other than those prescribed or required for medical reasons: No Currently Displaying Signs/Symptoms of Drug Intoxication Withdrawal: No Have you been hit, kicked, punched, or otherwise hurt by someone within the past year? If so, by whom?: No Do you feel safe in your current relationship?: No Current Relationship Is there a partner from a previous relationship who is making you feel unsafe now?: No Are you made to feel afraid or neglected: No Advance Directives: Yes Advance Directives on File: Yes Advance Directives Date on File: 02/18/25 Do you have a plan to hurt others: No Plan Recently lost weight without trying: No Eating poorly because of decreased appetite: Yes Nutrition Risks: No Nutritional Risk service: No Physical Exam ED Exam Exam: GENERAL: Appears intoxicated, GCS 13, eyes open to voice, slurred speech, no acute distress. SKIN: Slightly jaundiced, warm, dry, no rashes noted. HEENT: Normocephalic, atraumatic, no stridor, posterior oropharynx nonerythematous, dentition intact, EOMI, pupils are 3mm bilaterally, reactive to light, slight scleral icterus, no raccoon's eyes, no roque sign. NECK: Soft, supple, no step-offs, no deformities, no lymphadenopathy. CHEST: Heart regular rhythm, no murmurs, symmetric chest rise and fall. PULMONARY: Clear to auscultation bilaterally, diminished at the bases, no labored breathing, no wheezes/rhales/rhonchi. ABDOMINAL: Soft, nondistended, positive bowel sounds in all quadrants. : Deferred. MUSCULOSKELETAL: Normal tone, full range of motion, no deformities, no peripheral edema. NEURO: GCS 13, eyes open to voice, slightly slurred speech, CN II through XII intact, equal strength and sensation bilateral upper and lower extremities, no focal neurologic deficits. PSYCHIATRIC: Flat affect, poor eye contact. Vital Signs: Vital Signs - 24 hr 06/04/25 22:38 06/05/25 00:56 Temperature 98.0 F Pulse Rate 65 72 Respiratory Rate 14 16 Blood Pressure 126/76 117/69 Pulse Oximetry 98 97 Oxygen Delivery Method Room Air Room Air BMI result Body Mass Index 37.2 Course Course Course Narrative: RME: 35-year-old male history of cirrhosis hepatic encephalopathy alcohol abuse presents to ED for confusion, drinking, falling downstairs and complaining of right lower chest right upper quadrant pain and loss of consciousness with head strike. Labs imaging ordered Medications Administered Generic Name Dose Route Start Last Admin Trade Name Freq PRN Reason Stop Dose Admin Acetaminophen 325 mg 06/05/25 11:57 06/05/25 12:15 Acetaminophen 325 Mg Tablet PO 325 mg Q6H PRN Administration Pain, Moderate(Pain Scale 4-6) Clonidine HCl 0.1 mg 06/05/25 15:00 06/05/25 16:13 Clonidine Hcl 0.1 Mg Tablet PO 0.1 mg TID LU Administration Protocol Folic Acid 1 mg 06/05/25 09:00 06/05/25 09:07 Folic Acid 1 Mg Tablet PO 06/08/25 08:59 1 mg DAILY LU Administration Gabapentin 800 mg 06/05/25 15:00 06/05/25 14:40 Gabapentin 400 Mg Capsule PO 800 mg TID LU Administration Lactulose 40 gm 06/05/25 15:00 06/05/25 14:40 Lactulose 20 Gm/30 Ml Solution PO 40 gm TID LU Administration Lorazepam 1 mg 06/05/25 05:30 06/05/25 18:15 Lorazepam 1 Mg Tablet PO 06/09/25 05:29 1 mg Q4H LU Administration Taper Methadone HCl 90 mg 06/05/25 09:10 06/05/25 10:34 Methadone Hcl 20 Mg/2 Ml Oral.Conc PO 90 mg DAILY@0800 LU Administration Multivitamins/Vitamin C 1 tab 06/05/25 09:00 06/05/25 09:07 Multivitamin Tablet PO 06/08/25 08:59 1 tab DAILY LU Administration Rifaximin 550 mg 06/05/25 09:00 06/05/25 09:07 Rifaximin 550 Mg Tablet PO 550 mg BID LU Administration Sodium Chloride 3 ml 06/05/25 08:00 06/05/25 18:23 0.9 % Sodium Chloride Flush 3 Ml Syringe IVFLUSH 3 ml QSHIFT LU Administration Thiamine HCl 100 mg 06/05/25 09:00 06/05/25 09:07 Thiamine Hcl 100 Mg Tablet PO 06/08/25 08:59 100 mg DAILY LU Administration Discontinued Medications Generic Name Dose Route Start Last Admin Trade Name Freq PRN Reason Stop Dose Admin Dicyclomine HCl 20 mg 06/05/25 01:50 06/05/25 01:56 Dicyclomine Hcl 10 Mg Capsule PO 06/05/25 01:51 20 mg ONCE ONE Administration Lactulose 20 gm 06/05/25 03:30 06/05/25 04:19 Lactulose 20 Gm/30 Ml Solution PO 20 gm Q12H LU Administration Lorazepam 2 mg 06/05/25 03:20 06/05/25 04:19 Lorazepam 1 Mg Tablet PO 06/05/25 03:21 2 mg ONCE ONE Administration Oxycodone HCl 10 mg 06/05/25 04:34 06/05/25 04:41 Oxycodone Hcl Immed Release 5 Mg Tablet PO 06/05/25 04:35 10 mg ONCE ONE Administration Medical Decision Making Medical Decision Making [facility] Narrative: Patient presents today with a chief complaint of altered mental status. Differential diagnosis for AMS is incredibly broad and includes infection, intracranial process such as hemorrhage, stroke or mass, electrolyte abnormality, hypercarbia, hypoxia, toxic encephalopathy, among many others. Broad-based workup was initiated to further evaluate the etiology of patient's symptoms based on the above exam and history. Clinical picture consistent with hepatic encephalopathy. No traumatic injury seen on CT imaging. He has no outward signs of trauma. Labs are close to his baseline aside from his ammonia level which is 121. He is requesting oxycodone for pain but at this point I do not think that narcotics would be a good idea. Use slurring his speech with hepatic encephalopathy. We will continue to monitor closely, admit to hospital for further care and evaluation. Differential Diagnosis Differential Diagnoses: The differential diagnosis associated with the presentation includes (As above) Admission/Observation Consideration of admission/observation: Escalation of care including admission/observation considered Consult Healthcare Provider Management of the patient was discussed with: Hospitalist Lab Data [facility] Lab Attestation statement: I reviewed the patient's lab results. 06/05/25 09:26 06/05/25 09:26 Labs: Lab Results 06/04/25 06/04/25 Range/Units 20:54 23:55 WBC 4.8 (4.8-10.8) X10*3/uL RBC 4.25 L (4.60-5.80) X10*6/uL Hgb 13.8 L (14.0-18.0) g/dl Hct 39.0 L (42.0-52.0) % MCV 91.8 (80.0-98.0) fL MCH 32.5 (27.0-33.0) pg MCHC 35.4 (31.0-36.0) g/dl RDW 14.1 (11.0-16.0) % Plt Count 67 L D (160-400) X10*3/uL MPV 9.9 (9.4-12.4) fL Immature Gran % (Auto) 0.2 (0.0-0.4) % Neut % (Auto) 55.3 (45-73) % Lymph % (Auto) 37.1 (20-40) % [place] % (Auto) 6.0 (2-11) % Eos % (Auto) 1.0 (0-4) % Baso % (Auto) 0.4 (0-2) % Lymph # (Auto) 1.8 (1.2-4.9) X10*3/uL [place] # (Auto) 0.3 (0.1-1.2) X10*3/uL Eos # (Auto) 0.1 (0.0-0.4) X10*3/uL Baso # (Auto) 0.0 (0.0-0.2) X10*3/uL Abs Immat Gran (auto) 0.01 (0.00-0.03) X10*3/uL Absolute Neuts (auto) 2.7 (2.0-8.3) x10*3/uL Absolute Nucleated RBC 0.000 (0.0-0.012) X10*3/uL Nucleated RBC % (auto) 0.0 (0.0-0.2) /100WBC Smear Tech's Comments VERIFIED PT 14.9 H (10.9-12.4) SEC INR 1.3 H (0.9-1.1) APTT 38.3 H (26.7-34.1) SEC Sodium 139 (135-145) mmol/L Potassium 3.9 (3.3-5.1) mmol/L Chloride 108 (96-108) mmol/L Carbon Dioxide 24 (22-29) mmol/L Anion Gap 11 L (12-20) BUN 3 L (9-16) mg/dL Creatinine 0.65 (0.5-1.4) mg/dL Estim Creat Clear Calc 175.5 Estimated GFR > 60 Random Glucose 108 (60-115) mg/dL Calcium 8.3 L (8.4-10.2) mg/dL Total Bilirubin 6.0 H (0.0-1.0) mg/dL AST 140 H (5-37) U/L ALT 59 H (0-40) U/L Alkaline Phosphatase 189 H (39-117) U/L Ammonia 121 H (13-55) umol/L Troponin I High Sens < 2.7 (<3.5-35.0) ng/L Total Protein 6.9 (6.5-8.0) g/dL Albumin 2.8 L (3.5-5.0) g/dL Urine Color Dark Yellow Urine Appearance Cloudy Urine pH 6.5 (5.0-9.0) Ur Specific [place] 1.015 (1.005-1.025) Urine Protein Negative (Neg-Trace) mg/dL Urine Glucose (UA) Negative (Negative) mg/dL Urine Ketones Negative (Negative) mg/dL Urine Blood Negative (Negative) Urine Nitrite Negative (Negative) Ur Leukocyte Esterase Trace H (Negative) Urine RBC 0-2 (0-2) /HPF Urine WBC 0-5 (0-5) /HPF Ur Squamous Epith Cells 0-2 (0-2) /HPF Urine Bacteria None Seen (None Seen) Hyaline Casts 0-2 (0-2) /LPF Urine Opiates Screen Not Detected (Not Detect) Ur Buprenorphine Scrn Not Detected (Not Detect) ng/mL Ur Oxycodone Screen Not Detected (Not Detect) ng/mL Urine Methadone Screen Positive H (Not Detect) ng/mL Urine Fentanyl Screen Not Detected (Not Detect) Ur Barbiturates Screen Not Detected (Not Detect) Ur Phencyclidine Scrn Not Detected (Not Detect) Ur Amphetamines Screen Not Detected (Not Detect) U Benzodiazepines Scrn POSITIVE H (Not Detect) Urine Cocaine Screen Not Detected (Not Detect) U Marijuana (THC) Screen Not Detected (Not Detect) Ethyl Alcohol 69 mg/dL Independent Interpretation I performed an independent interpretation of an: EKG Interpretation: My independent interpretation of the ECG reveals normal sinus rhythm with rate of 72, normal axis, normal intervals, no ST elevations or depressions to suggest ischemic changes, no previous for comparison Radiology Impression Discussion of test interpretation with radiology: I have reviewed the radiologist's reading. External Record Review External record reviewed: Inpatient record Chronic Conditions Patient?s care impacted by: Other (Alcoholic liver cirrhosis) Social Determinants Patient?s care significantly limited by Social Determinants of Health including: Alcoholism and drug addiction in family Discharge Plan Discharge Clinical Impression: Acute hepatic encephalopathy, Alcohol use disorder, Alcoholic cirrhosis of liver Patient Disposition: Admitted As Inpatient Interventions: Admission Worksheet (ED) Last Done: 06/05/25 04:35 Discharge Date/Time: 06/05/25 05:25
[2025-06-04 21:02] LABS: Imm Gran Abs Auto 0.01 X10*3/uL (0.00-0.03); Imm Gran Pct Auto 0.2 % (0.0-0.4); Mean Corpuscular Volume 91.8 fL (80.0-98.0); NRBC Abs Auto 0.000 X10*3/uL (0.0-0.012); NRBC Pct Auto 0.0 /100WBC (0.0-0.2); PLT CLUMP 1; SCAN SMEAR FLAG 1
[2025-06-04 21:04] LABS: Hematocrit 39.0 % (42.0-52.0); Hemoglobin 13.8 g/dl (14.0-18.0); Lymphocytes Absolute Auto 1.8 X10*3/uL (1.2-4.9); Mean Corpuscular HGB Conc 35.4 g/dl (31.0-36.0); Mean Corpuscular Hemoglobin 32.5 pg (27.0-33.0); Red Blood Count 4.25 X10*6/uL (4.60-5.80)
[2025-06-04 21:06] LABS: MANUAL DIFF FLAG SCAN; Platelet Count 67 X10*3/uL (160-400); White Blood Count 4.8 X10*3/uL (4.8-10.8)
[2025-06-04 21:11] LABS: Ammonia 121 umol/L (13-55)
[2025-06-04 21:18] LABS: INTERNATIONAL NORM RATIO 1.3 (0.9-1.1); Prothrombin Time 14.9 SEC (10.9-12.4)
[2025-06-04 21:21] LABS: Alanine Aminotransferase 59 U/L (0-40); Albumin Level 2.8 g/dL (3.5-5.0); Alkaline Phosphatase 189 U/L (39-117); Anion Gap 11 (12-20); Aspartate Amino Transferase 140 U/L (5-37); Blood Urea Nitrogen 3 mg/dL (9-16); Calcium 8.3 mg/dL (8.4-10.2); Carbon Dioxide 24 mmol/L (22-29); Chloride 108 mmol/L (96-108); Creatinine Clr Calc Pharmacy 175.5; Estimated Glomerular Filt Rate > 60; Partial Thromboplastin Time 38.3 SEC (26.7-34.1); Potassium 3.9 mmol/L (3.3-5.1); Sodium 139 mmol/L (135-145); Total Protein 6.9 g/dL (6.5-8.0)
[2025-06-04 21:29] LABS: Troponin-I High Sensitivity < 2.7 ng/L (<3.5-35.0)
--- OUTSIDE RECORDS SUMMARY | 2025-06-04 22:02 | XMS_ITS | Clinical Summary ---
Author Organization [facility] Address [address] [place] [address] Care Team Providers Care Olive Knocker Name Role Phone Patient, Has No Pcp [...] and Ativan from streets. Received records from [facility] in [place] where he was admitted for detox 07/2015: Court ordered treatment, had felony charges for drugs. Reportedly he used suboxone in the past but was selling mostly?. 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
--- OUTSIDE RECORDS SUMMARY | 2025-06-04 22:02 | XMS_ITS | Clinical Summary ---
Author Organization [facility] Address [address] [place] [address] Phone Care Team Providers Care Strike On Machine Operator Name Role Phone Kim Lemus MD Primary Care Provider [phone] Allergies Active Allergy Reactions Criticality Noted Date [...] Noted Date Diagnosed Date Acute hepatic encephalopathy ([facility]/HCC V24, [facility]/ CC V28) 02/25/2025 Hepatic encephalopathy (CMS/HCC V24, CMS/HCC V28 ) 12/21/2024 Right upper quadrant abdominal pain 12/21/2024 Surgical History Surgery Date Site/Laterality Comments WISDOM TOOTH EXTRACTION PROCEDURE: HISTORICAL WISDOM TEETH EXTRACTION Medical History Medical History Date Comments Pneumonia DX:Pneumonia; CO MMENT: 2006 Cirrhosis (CMS/HCC V24, CMS/HCC V28) Pancreatitis Seizures (CMS/HCC V24, CMS/HCC V28) Viral hepatitis C Alcohol use disorder, severe , dependence (CMS/HCC V24, [facility] V28) Severe benzodiazepine use di sorder ([facility] V24, [facility] V28) Opioid dependence on agonist therapy ([facility] V24, [facility] V28) Depression Anxiety Family History Medical History [...] for your loved ones. For example, child neurologist or elderly care for an older adult? [...] 09/08/2022 COVID-19 Vaccine ( season) 2024 03/11/2021 Depression Screening 10/10/2024 Influenza [...] on patient's age to complete this topic Insurance [facility] [employer] [place] [id number] Advance Directives * Full Code - Default [...] currently active code status orders. Care Teams Strike On Machine Operator Relationship Specialty Start Date End Date Kim Lemus MD [address] [place], [place] [id number] PCP - General Internal Medicine 05/11/19
--- OUTSIDE RECORDS SUMMARY | 2025-06-04 22:03 | XMS_ITS | Clinical Summary ---
Author Organization [facility] Address [address] [place] [address] Care Team Providers Care Solutions Consultant Name Role Phone Emelia Ahn VEGETABLE CANNER Primary Care Provider [phone] Source Comments PLEASE NOTE, if this patient [...] 12/03/2015 Overview (12/03/2015): Dx as noted in [place] records; Reportedly followed [facility] 10/23/08. H/O: substance abuse ([facility] 11/27/2015 Overview (11/27/2015): Alcohol, Heroin, Xanax and Ativan from streets. Received records from [facility] in [place] where he was admitted for detox 07/2015: Court ordered treatment, had felony charges for drugs. Reportedly he used suboxone in the past but was selling mostly?. He was treated in detox with protocol( also including Hydroxyzine, clonidine, keppra prophylaxis, Remeron, Trazodone prn, Subutex) Depression with anxiety 11/08/2015 Overview (12/03/2015): Inconsistent History. Says that he is now Following with at [facility], [facility]. He brought a letter from his Clinical supervisor [employer] at [facility] suggesting that he will benefit from Pharmacotherapy. Per [facility] records prior to 2012, he was on Buspar, Trazodone, Effexor, Clonidine, Ativan. Smoking 11/08/2015 Immunizations Immunization Administration Dates Next Due DTAP (DAPTACEL),5 PERTUSSIS ANTIGENS ,08/05/1992,1991,08/21 HEP B, PED/ADOL ([id number]/RECOMBIVAX-PEDS) 06/11/2004,04/16/2003 Hib (PRP-OMP) (PedvaxHIB) 1991,1991 History Of [...] Plan of Treatment Not on file Insurance [facility] Member Subscriber Plan / Payer (Ef fective 2015-Present) Name:LUCIA RUSSELL Relation to Subscriber:Self Name:Lucia Russell Payer ID:[id number] (NAIC) Type:Indemnity Address: [facility] [id number] MEDICAID DENTAL [facility] SAF[employer]Y NET DENTAL Care Teams Solutions Consultant Relationship Specialty Start Date End Date Emelia Ahn FNP [address] [place] [address] PCP - General 12/05/18
[2025-06-04 22:38] VITALS: BP 126/76; PULSE 65; RESP 14; O2SAT 98
[2025-06-05] VITALS (8 sets, daily range): BP systolic 117–137; BP diastolic 61–81; PULSE 65–72; RESP 14–18; TEMP 35.9–36.9; O2SAT 96–98; BMI 38.7
[2025-06-05 00:14] LABS: Cannabinoid Screen Urine Not Detected (Not Detect)
[2025-06-05 01:37] LABS: Appearance Urine Cloudy; Glucose Urine UA Negative (Negative); PH 6.5 (5.0-9.0); Specific Gravity - Urine 1.015 (1.005-1.025); UMIC TRIGGER UACC YES
--- NOTE | 2025-06-05 03:25 | PM.IMHP ---
History of Present Illness Date of Service: 06/05/25 Chief Complaint: fall 35-year-old male with a past medical history of hep C, liver cirrhosis, history of hepatic encephalopathy, opiate dependence on methadone, obesity, alcohol use disorder; presented to the hospital today with a chief complaint of fall. Patient mentioned that he followed up the stairs. Denies any head strike or loss of consciousness. Reports pain on his right side of his lower chest wall. Denies any nausea vomiting or diarrhea. Mentions he has been noncompliant with his lactulose. Denies any signs of bleeding. Patient mentioned that he has been drinking alcohol about a pt every day. Last drink was earlier in the day. Review of all other systems is limited. ER course: Per ER team, patient on presentation has been on musculoskeletal examination except right lower tenderness; CT head, C-spine, CT chest abdomen pelvis showed no acute findings. Patient was slow to respond; ammonia level elevated to 121. Concern for possible hepatic encephalopathy. [facility] Medical History Multiple falls Chronic constipation Methadone maintenance therapy patient Alcohol use disorder, severe, dependence Liver failure Alcoholic cirrhosis of liver with ascites Cirrhosis Cirrhosis Edema Alcohol abuse Increased ammonia level Substance abuse Opiate use Social History Household Members: Other Household Members Other:: Brother Housing: House Do you presently have visiting nurse or other home services: No Alcohol intake: current Alcohol intake frequency: 3 or more drinks per day Alcohol type: hard liquor Comment: refusing alarms Patient Tobacco Use Status: Current everyday Tobacco user Tobacco use type: Cigarette and Smokeless Tobacco Cigarette Packs Per Day: 1 Cigarettes Per Day: 20.0 e-Cigarette/Vaping Use: Currently Using Advance Directives Date on File: 02/18/25 service: No Meds Allergies Allergy/AdvReac Type Severity Reaction Status Date / Time fish derived (fish) Allergy Anaphylaxis Verified 06/04/25 20:21 shellfish derived Allergy Anaphylaxis Verified 06/04/25 20:21 Pork/Porcine Containing AdvReac Gastrointestinal Verified 06/04/25 20:22 Products Upset Home Medications ?Medication ?Instructions ?Recorded ?Confirmed ?Last Taken ?Type methadone 10 mg/mL oral concentrate 85 mg PO DAILY 03/03/24 05/23/25 05/22/25 06:45 History clonidine HCl 0.1 mg tablet 0.1 mg PO TID 12/13/24 05/23/25 04/28/25 History gabapentin 800 mg tablet 800 mg PO TID 12/13/24 05/23/25 04/28/25 History sertraline 100 mg tablet 100 mg PO DAILY 12/13/24 05/23/25 04/28/25 History thiamine HCl (vitamin B1) 100 mg 200 mg PO DAILY 12/13/24 05/23/25 04/28/25 History tablet magnesium oxide 400 mg (241.3 mg 400 mg PO DAILY 02/12/25 05/23/25 04/28/25 History magnesium) tablet melatonin 5 mg tablet 5 - 10 mg PO BEDTIME PRN Sleep 02/12/25 05/23/25 04/28/25 History tamsulosin 0.4 mg capsule 0.4 mg PO DAILY 02/12/25 05/23/25 04/28/25 History lactulose 10 gram/15 mL oral 60 ml PO TID 03/28/25 05/23/25 04/28/25 History solution linaclotide 145 mcg capsule 145 mcg PO DAILY 03/28/25 05/23/25 04/28/25 History (Linzess) nicotine 21 mg/24 hr daily 1 patch topical DAILY 04/30/25 05/23/25 Unknown History transdermal patch folic acid 1 mg tablet 1 mg PO DAILY 05/23/25 05/23/25 Unknown History spironolactone 50 mg tablet 50 mg PO DAILY 05/23/25 05/23/25 Unknown History Physical Exam Vital Signs and Narrative: Vital Signs: Last Vital Signs Temp 98.0 F 06/05/25 00:56 Pulse 72 06/05/25 00:56 Resp 16 06/05/25 00:56 BP 117/69 06/05/25 00:56 Pulse Ox 97 06/05/25 00:56 O2 Del Method Room Air 06/05/25 00:56 BMI result Body Mass Index 37.2 Gen: Appears be in no acute distress HEENT: NCAT, Moist mucosa. Pulmonary: Vesicular breath sounds, fair air entry CVS: Normal S1-S2 Abdomen: BS+, Soft, Nontender Extremities: Warm well perfused Neuro: Alert and awake. Results Labs 06/04/25 20:54 08/26/25 20:54 Labs: Laboratory Results - last 24 hr 06/04/25 06/04/25 20:54 23:55 MCV 91.8 MCH 32.5 MCHC 35.4 RDW 14.1 Plt Count 67 L D MPV 9.9 Immature Gran % (Auto) 0.2 Neut % (Auto) 55.3 Lymph % (Auto) 37.1 [place] % (Auto) 6.0 Eos % (Auto) 1.0 Baso % (Auto) 0.4 Lymph # (Auto) 1.8 [place] # (Auto) 0.3 Eos # (Auto) 0.1 Baso # (Auto) 0.0 Abs Immat Gran (auto) 0.01 Absolute Neuts (auto) 2.7 Absolute Nucleated RBC 0.000 Nucleated RBC % (auto) 0.0 Smear Tech's Comments VERIFIED PT 14.9 H INR 1.3 H APTT 38.3 H Anion Gap 11 L Estim Creat Clear Calc 175.5 Estimated GFR > 60 Random Glucose 108 Calcium 8.3 L Total Bilirubin 6.0 H AST 140 H ALT 59 H Alkaline Phosphatase 189 H Ammonia 121 H Total Protein 6.9 Albumin 2.8 L Urine Color Dark Yellow Urine Appearance Cloudy Urine pH 6.5 Ur Specific [place] 1.015 Urine Protein Negative Urine Glucose (UA) Negative Urine Ketones Negative Urine Blood Negative Urine Nitrite Negative Ur Leukocyte Esterase Trace H Urine RBC 0-2 Urine WBC 0-5 Ur Squamous Epith Cells 0-2 Urine Bacteria None Seen Hyaline Casts 0-2 Urine Opiates Screen Not Detected Ur Buprenorphine Scrn Not Detected Ur Oxycodone Screen Not Detected Urine Methadone Screen Positive H Urine Fentanyl Screen Not Detected Ur Barbiturates Screen Not Detected Ur Phencyclidine Scrn Not Detected Ur Amphetamines Screen Not Detected U Benzodiazepines Scrn POSITIVE H Urine Cocaine Screen Not Detected U Marijuana (THC) Screen Not Detected Ethyl Alcohol 69 Assessment and Plan (1) Alcohol use disorder: Status: Acute Plan 35-year-old male with a past medical history of hep C, liver cirrhosis, history of hepatic encephalopathy, opiate dependence on methadone, obesity, alcohol use disorder; presented to the hospital today with a chief complaint of fall. Fall: Mechanical in nature Benign musculoskeletal exam except mild right lower chest wall tenderness. CT head, CT C-spine, CT chest abdomen pelvis showed no acute findings. Pain control Fall precautions PT/OT when ready for discharge Hepatic encephalopathy: Patient noted to have psychomotor slowing. Ammonia level elevated to 121. Patient has been noncompliant with his lactulose. Continue lactulose with goal bowel movements of 3-4 per day Continue home rifaximin Aspiration precautions Alcohol use disorder: Monitor on CIWA protocol with Ativan. Thiamine folate and multivitamins. Chronic thrombocytopenia: In the setting of liver disease. Denies any signs of bleeding. Will monitor. Opiate dependence: Patient on methadone. Will defer to the day team to confirm and resume home methadone in a.m.. DVT prophylaxis: SCD boots Code status: Full code Quality Stroke Does the patient have a stroke diagnosis?: No VTE Prior VTE?: No VTE Risk Level:: Medical - moderate - high VTE Device Contraindication: Treatment Not Indicated VTE Drug Contraindication: N/A - Med Ordered
--- NOTE | 2025-06-05 04:25 | PC.NURSE ---
pt was cooperative for safety search by [employer], only found two vapes that patient can obtain from security upon discharge. pt medicated per dec. reporting 05/19 abd pain and requesting pain medication. stated to pt will reach out to MD. pt states he wants to leave AMA, upon asking why patient stated i don't know i just don't want to stay tonight. and stated his dad will pick him up. MD Made aware.
[2025-06-05] MEDS: oxyCODONE HCl Immed Release 5 MG TABLET 10 MG PO (04:41)
--- NOTE | 2025-06-05 08:46 | MHC.CM.PN ---
Patient lives with his Parents, receives his Methadone from [facility] and is functionally independent. Home/resume said services is the goal and CM has initiated and will follow for dc planning. PCP is Dr. Stephen Biggs and Patient can arrange for his own transport to [place].
--- NOTE | 2025-06-05 09:09 | PHA.MEDREC ---
Addendum entered by Elliott Romero, PharmChris 06/05/25 11:23: [facility] rec checked by [facility] Original Note: Pharmacy Consult ? Medication Reconciliation Pharmacy has completed the medication reconciliation. Patient kept falling asleep but wakes up to his name. Patient was able to confirm his medications. Patient states he is no longer taking Folid Acid 1 mg, Linaclotide 145 mg, and Oxycodone 10 mg. Patient confirmed Methadone 90 mg daily from [facility], last dose was yesterday. Patient says he can't remember when he last had all his other medication.
[2025-06-05] MEDS: 0.9 % Sodium Chloride Flush 3 ML SYRINGE IVFLUSH ×3 (09:12→22:11)
--- NOTE | 2025-06-05 09:14 | HE.PHANOTE ---
RE: METHADONE Per Sarahy CONTRERAS at [facility], methadone dose is 90 mg last taken 06/04/25 @0705.
[2025-06-05 09:55] LABS: MANUAL DIFF FLAG NO
[2025-06-05 10:03] LABS: Hematocrit 38.0 % (42.0-52.0); Hemoglobin 13.1 g/dl (14.0-18.0); Imm Gran Abs Auto 0.00 X10*3/uL (0.00-0.03); Imm Gran Pct Auto 0.0 % (0.0-0.4); Lymphocytes Absolute Auto 1.2 X10*3/uL (1.2-4.9); Mean Corpuscular HGB Conc 34.5 g/dl (31.0-36.0); Mean Corpuscular Hemoglobin 32.2 pg (27.0-33.0); Mean Corpuscular Volume 93.4 fL (80.0-98.0); NRBC Abs Auto 0.000 X10*3/uL (0.0-0.012); NRBC Pct Auto 0.0 /100WBC (0.0-0.2); Red Blood Count 4.07 X10*6/uL (4.60-5.80); White Blood Count 2.9 X10*3/uL (4.8-10.8)
[2025-06-05 10:16] LABS: Platelet Count 49 X10*3/uL (160-400)
[2025-06-05] MEDS: methADONE HCl 20 MG/2 ML ORAL.CONC 90 MG PO (10:34)
[2025-06-05 10:36] LABS: Alanine Aminotransferase 53 U/L (0-40); Albumin Level 2.5 g/dL (3.5-5.0); Alkaline Phosphatase 169 U/L (39-117); Anion Gap 10 (12-20); Aspartate Amino Transferase 138 U/L (5-37); Blood Urea Nitrogen 6 mg/dL (9-16); Calcium 8.0 mg/dL (8.4-10.2); Carbon Dioxide 25 mmol/L (22-29); Chloride 107 mmol/L (96-108); Creatinine Clr Calc Pharmacy 197.2; Estimated Glomerular Filt Rate > 60; Potassium 3.6 mmol/L (3.3-5.1); Sodium 138 mmol/L (135-145); Total Protein 6.2 g/dL (6.5-8.0)
--- NOTE | 2025-06-05 11:10 | P.PNIM_ITS ---
Subjective Subjective Date of Service: 06/05/25 Interval History: foggy Physical Exam 2 Exam: Exam: Lethargic oriented x3, jaundice, ill-appearing, sluggish, abdomen soft and nondistended, lungs clear, no acute distress Vital Signs: Vital Signs: Last Vital Signs Temp 98.3 F 06/05/25 11:00 Pulse 70 06/05/25 11:00 Resp 18 06/05/25 11:00 BP 122/67 06/05/25 11:00 Pulse Ox 98 06/05/25 11:00 O2 Del Method Room Air 06/05/25 11:00 BMI result Body Mass Index 38.7 Objective Data Active Medications Calcium Carbonate (Calcium Carbonate 750 Mg Tab.Chew) 750 mg PO Q4H PRN PRN Reason: Heartburn Clonidine HCl (Clonidine Hcl 0.1 Mg Tablet) 0.1 mg PO TID [facility]; Protocol Folic Acid (Folic Acid 1 Mg Tablet) 1 mg PO DAILY [facility] Stop: 06/08/25 08:59 Last Admin: 06/05/25 09:07 Dose: 1 mg Documented By: SILVIA Furosemide (Furosemide 40 Mg Tablet) 40 mg PO DAILY [facility]; Protocol Gabapentin (Gabapentin 400 Mg Capsule) 800 mg PO TID [facility] Lactulose (Lactulose 20 Gm/30 Ml Solution) 40 gm PO TID [facility] Lorazepam (Lorazepam 1 Mg Tablet) 1 mg PO Q4H PRN PRN Reason: Breakthrough alcohol withdrawa Stop: 06/09/25 03:19 Lorazepam (Lorazepam 1 Mg Tablet) 1 mg PO Q4H [facility]; Taper Stop: 06/09/25 05:29 Last Admin: 06/05/25 09:07 Dose: 1 mg Documented By: SILVIA Magnesium Hydroxide (Milk Of Magnesia 30 Ml Oral.Susp) 30 ml PO DAILY PRN PRN Reason: Constipation Magnesium Oxide (Magnesium Oxide 400 Mg Tablet) 400 mg PO DAILY [facility] Melatonin (Melatonin 3 Mg Tablet) 6 mg PO BEDTIME PRN PRN Reason: Insomnia Methadone HCl (Methadone Hcl 20 Mg/2 Ml Oral.Conc) 90 mg PO DAILY@0800 [facility] Last Admin: 06/05/25 10:34 Dose: 90 mg Documented By: AMY Co-signed By: SILVIA Multivitamins/Vitamin C (Multivitamin Tablet) 1 tab PO DAILY [facility] Stop: 06/08/25 08:59 Last Admin: 06/05/25 09:07 Dose: 1 tab Documented By: SILVIA Rifaximin (Rifaximin 550 Mg Tablet) 550 mg PO BID [facility] Last Admin: 06/05/25 09:07 Dose: 550 mg Documented By: SILVIA Sertraline HCl (Sertraline Hcl 100 Mg Tablet) 100 mg PO DAILY [facility] Sodium Chloride (0.9 % Sodium Chloride Flush 3 Ml Syringe) 3 ml IVFLUSH QSHIFT [facility] Last Admin: 06/05/25 09:12 Dose: 3 ml Documented By: SILVIA Spironolactone (Spironolactone 25 Mg Tablet) 50 mg PO DAILY [facility]; Protocol Tamsulosin HCl (Tamsulosin Hcl 0.4 Mg Capsule) 0.4 mg PO DAILY [facility] Thiamine HCl (Thiamine Hcl 100 Mg Tablet) 100 mg PO DAILY [facility] Stop: 06/08/25 08:59 Last Admin: 06/05/25 09:07 Dose: 100 mg Documented By: SILVIA Labs 06/05/25 09:26 06/05/25 09:26 Labs: Laboratory Results - last 24 hr 06/04/25 06/04/25 06/05/25 20:54 23:55 09:26 MCV 91.8 93.4 MCH 32.5 32.2 MCHC 35.4 34.5 RDW 14.1 13.7 Plt Count 67 L D 49 L D MPV 9.9 10.1 Immature Gran % (Auto) 0.2 0.0 Neut % (Auto) 55.3 53.2 Lymph % (Auto) 37.1 39.7 [place] % (Auto) 6.0 5.8 Eos % (Auto) 1.0 1.0 Baso % (Auto) 0.4 0.3 Lymph # (Auto) 1.8 1.2 [place] # (Auto) 0.3 0.2 Eos # (Auto) 0.1 0.0 Baso # (Auto) 0.0 0.0 Abs Immat Gran (auto) 0.01 0.00 Absolute Neuts (auto) 2.7 1.6 L Absolute Nucleated RBC 0.000 0.000 Nucleated RBC % (auto) 0.0 0.0 Smear Tech's Comments VERIFIED PT 14.9 H INR 1.3 H APTT 38.3 H Anion Gap 11 L 10 L Estim Creat Clear Calc 175.5 197.2 Estimated GFR > 60 > 60 Random Glucose 108 125 H Calcium 8.3 L 8.0 L Total Bilirubin 6.0 H 6.7 H AST 140 H 138 H ALT 59 H 53 H Alkaline Phosphatase 189 H 169 H Ammonia 121 H Total Protein 6.9 6.2 L Albumin 2.8 L 2.5 L Urine Color Dark Yellow Urine Appearance Cloudy Urine pH 6.5 Ur Specific [place] 1.015 Urine Protein Negative Urine Glucose (UA) Negative Urine Ketones Negative Urine Blood Negative Urine Nitrite Negative Ur Leukocyte Esterase Trace H Urine RBC 0-2 Urine WBC 0-5 Ur Squamous Epith Cells 0-2 Urine Bacteria None Seen Hyaline Casts 0-2 Urine Opiates Screen Not Detected Ur Buprenorphine Scrn Not Detected Ur Oxycodone Screen Not Detected Urine Methadone Screen Positive H Urine Fentanyl Screen Not Detected Ur Barbiturates Screen Not Detected Ur Phencyclidine Scrn Not Detected Ur Amphetamines Screen Not Detected U Benzodiazepines Scrn POSITIVE H Urine Cocaine Screen Not Detected U Marijuana (THC) Screen Not Detected Ethyl Alcohol 69 Assessment and Plan (1) Alcohol use disorder: Status: Acute Plan 35M PMH alcohol dependence, HCV, decompensated liver cirrhosis, opiate dependence on methadone, obesity presented with fall Fall due to acute metabolic encephalopathy due to hepatic encephalopathy due to alcohol and HCV cirrhosis was Continue lactulose and rifaximin Goal of 2-4 bowel movements per day Monitor CIWA Continue vitamins Opiate dependence Methadone Obesity Weight loss recommended DVT prophylaxis-mechanical due to chronic thrombocytopenia from cirrhosis Full code reason for continued hospitalization: Treatment of encephalopathy Quality Stroke Does the patient have a stroke diagnosis?: No VTE Prior VTE?: No VTE Risk Level:: Medical - moderate - high VTE Device Contraindication: Treatment Not Indicated VTE Drug Contraindication: N/A - Med Ordered
--- NOTE | 2025-06-05 13:07 | PM.DS ---
DS: Providers Provider Date of Service: 06/05/25 Date of admission: 06/05/25 03:21 Date of discharge: 06/05/25 Primary care physician: Unknown Physician Consults: 06/05/25 03:20 Addiction Medicine Provider Routine Consulting Provider: Addiction Covering Reason for consultation: opiate dependence on methadone DS: Diagnosis Discharge Diagnosis (1) Alcohol use disorder: Status: Acute DS: Summary Time Attestation Discharge Coordination Time (in mins): 33 Quality: Safe Use of Opioids Does Pt have an Active Cancer Diagnosis on the Problem List?: No Quality: Stroke Does the patient have a stroke diagnosis?: No Physical Exam Vital Signs: Vital Signs: Last Vital Signs Temp 98.3 F 06/05/25 11:00 Pulse 70 06/05/25 11:00 Resp 18 06/05/25 11:00 BP 122/67 06/05/25 11:00 Pulse Ox 98 06/05/25 11:00 O2 Del Method Room Air 06/05/25 11:00 BMI result Body Mass Index 38.7 DS: Data Data Completed and Pending Completed studies during hospitalization [Text1]: Procedures Detoxification Services for Substance Abuse Treatment (12/13/24) Labs on day of discharge: Laboratory Results - last 24 hr 06/04/25 06/04/25 06/05/25 20:54 23:55 09:26 WBC 4.8 2.9 L RBC 4.25 L 4.07 L Hgb 13.8 L 13.1 L Hct 39.0 L 38.0 L MCV 91.8 93.4 MCH 32.5 32.2 MCHC 35.4 34.5 RDW 14.1 13.7 Plt Count 67 L D 49 L D MPV 9.9 10.1 Immature Gran % (Auto) 0.2 0.0 Neut % (Auto) 55.3 53.2 Lymph % (Auto) 37.1 39.7 [place] % (Auto) 6.0 5.8 Eos % (Auto) 1.0 1.0 Baso % (Auto) 0.4 0.3 Lymph # (Auto) 1.8 1.2 [place] # (Auto) 0.3 0.2 Eos # (Auto) 0.1 0.0 Baso # (Auto) 0.0 0.0 Abs Immat Gran (auto) 0.01 0.00 Absolute Neuts (auto) 2.7 1.6 L Absolute Nucleated RBC 0.000 0.000 Nucleated RBC % (auto) 0.0 0.0 Smear Tech's Comments VERIFIED PT 14.9 H INR 1.3 H APTT 38.3 H Sodium 139 138 Potassium 3.9 3.6 Chloride 108 107 Carbon Dioxide 24 25 Anion Gap 11 L 10 L BUN 3 L 6 L Creatinine 0.65 0.59 Estim Creat Clear Calc 175.5 197.2 Estimated GFR > 60 > 60 Random Glucose 108 125 H Calcium 8.3 L 8.0 L Total Bilirubin 6.0 H 6.7 H AST 140 H 138 H ALT 59 H 53 H Alkaline Phosphatase 189 H 169 H Ammonia 121 H Troponin I High Sens < 2.7 Total Protein 6.9 6.2 L Albumin 2.8 L 2.5 L Urine Color Dark Yellow Urine Appearance Cloudy Urine pH 6.5 Ur Specific [place] 1.015 Urine Protein Negative Urine Glucose (UA) Negative Urine Ketones Negative Urine Blood Negative Urine Nitrite Negative Ur Leukocyte Esterase Trace H Urine RBC 0-2 Urine WBC 0-5 Ur Squamous Epith Cells 0-2 Urine Bacteria None Seen Hyaline Casts 0-2 Urine Opiates Screen Not Detected Ur Buprenorphine Scrn Not Detected Ur Oxycodone Screen Not Detected Urine Methadone Screen Positive H Urine Fentanyl Screen Not Detected Ur Barbiturates Screen Not Detected Ur Phencyclidine Scrn Not Detected Ur Amphetamines Screen Not Detected U Benzodiazepines Scrn POSITIVE H Urine Cocaine Screen Not Detected U Marijuana (THC) Screen Not Detected Ethyl Alcohol 69 Discharge Plan Discharge Anticipated Discharge Date/Time: 06/05/25 13:06 Patient Disposition: Left Against Medical Advice Discharge Diagnosis: Hepatic encephalopathy Referrals: Physician,Unknown J [Primary Care Provider, Medical] - 1 Week Discharge Medications: No Action furosemide 40 mg tablet 40 mg PO DAILY 90 Days Qty: 90 1RF methadone 10 mg/mL Concentrate 90 mg PO DAILY Rx Instructions: [facility]UNC[facility] [phone] clonidine HCl 0.1 mg tablet 0.1 mg PO TID sertraline 100 mg tablet 100 mg PO DAILY thiamine HCl (vitamin B1) 100 mg tablet 200 mg PO DAILY gabapentin 800 mg tablet 800 mg PO TID spironolactone 50 mg tablet 50 mg PO DAILY lorazepam 0.5 mg tablet 0.5 mg PO BID PRN (Reason: Anxiety) magnesium oxide 400 mg (241.3 mg magnesium) tablet 400 mg PO DAILY tamsulosin 0.4 mg capsule 0.4 mg PO DAILY melatonin 5 mg Tablet 5 - 10 mg PO BEDTIME PRN (Reason: Sleep) Xifaxan 550 mg Tablet 550 mg PO BID Qty: 60 0RF nicotine 21 mg/24 hr patch 24 hour 1 patch topical DAILY PRN (Reason: Smoking Cessation) lactulose 10 gram/15 mL solution 60 ml PO TID Discharge Orders: Discharge Order (Routine); Ordered 06/05/25 Ordered By: Gagandeep Sandra Diet: Advance to usual diet Activity on Discharge: As tolerated Print Language: French Care Plan Goals: Recovery Health Concerns: Hepatic encephalopathy Plan of Treatment: Continue lactulose, can not treated properly outpatient Assessment: Left AMA
--- NOTE | 2025-06-05 16:06 | MHC.RECOVRN ---
TW attempted to meet with pt in 452 to offer support and resources after consult placed to Addiction Medicine for opiate dependance. On approach pt was laying in bed, resting with eyes closed, in no apparent distress, respirations even and unlabored. Pt was difficult to arouse. Pt attempted to speak to TW but speech was very difficult to understand as it was soft and mumbled. Pt had to repeat self several times before TW could determine pt wanted his bed lowered. Bed was lowered and pt returned to resting and unable to engage in assessment do to presentation. TW will attempt to meet with pt at later time and is available for questions, concerns, or support as needed.
--- NOTE | 2025-06-05 16:24 | HO.ADDICT_ITS ---
History of Present Illness Date of Service: 06/05/25 Chief Complaint: Fall Reason for Consult: AUD Sources of Information: chart reviewed HPI Narrative: Patient is a 35 year old male well known to t/w via previous admissions for encephalopathy secondary to elevated ammonia and complicated by alcohol withdrawal. Currently medically admitted after presenting to ED reporting a fall at home down several stairs with +LOC. Per ED note, patient reported drinking [place] prior to fall. Ammonia level 121 in ED --also reporting he has not been taking Lactulose at home. Patent seen in room 452. He was sleeping soundly upon approach. Wakes to voice. Very difficult to understand what patient is saying due to mumbled speech. Requiring frequent prompting to respond as he was very drowsy and unable to stay awake. He reported decrease in drinking at home, however unable to quantify how much. Denies withdrawal sx. Reporting abdominal pain. VSS No tremor, restlessness,diaphoresis or agitation noted. Review of Systems Constitutional: Reports as per HPI Diagnostics Vital Signs (24Hr): Vital Signs - 24 hr 06/04/25 20:18 06/04/25 22:38 06/05/25 00:56 Temperature 97.7 F 98.0 F Pulse Rate 74 65 72 Respiratory Rate 14 14 16 Blood Pressure 130/70 126/76 117/69 Pulse Oximetry 97 98 97 Oxygen Delivery Method Room Air Room Air Room Air 06/05/25 03:25 06/05/25 05:40 06/05/25 07:04 Temperature 98.5 F 97.1 F 97.0 F Pulse Rate 71 65 70 Respiratory Rate 14 18 16 Blood Pressure 126/70 137/81 117/79 Pulse Oximetry 96 97 97 Oxygen Delivery Method Room Air Room Air Room Air 06/05/25 11:00 06/05/25 15:16 Temperature 98.3 F 96.8 F Pulse Rate 70 65 Respiratory Rate 18 18 Blood Pressure 122/67 117/73 Pulse Oximetry 98 97 Oxygen Delivery Method Room Air Room Air BMI result Body Mass Index 38.7 Labs 06/05/25 09:26 06/05/25 09:26 Labs: Laboratory Results - last 48 hr 06/04/25 06/04/25 06/05/25 20:54 23:55 09:26 WBC 4.8 2.9 L RBC 4.25 L 4.07 L Hgb 13.8 L 13.1 L Hct 39.0 L 38.0 L MCV 91.8 93.4 MCH 32.5 32.2 MCHC 35.4 34.5 RDW 14.1 13.7 Plt Count 67 L D 49 L D MPV 9.9 10.1 Immature Gran % (Auto) 0.2 0.0 Neut % (Auto) 55.3 53.2 Lymph % (Auto) 37.1 39.7 [place] % (Auto) 6.0 5.8 Eos % (Auto) 1.0 1.0 Baso % (Auto) 0.4 0.3 Lymph # (Auto) 1.8 1.2 [place] # (Auto) 0.3 0.2 Eos # (Auto) 0.1 0.0 Baso # (Auto) 0.0 0.0 Abs Immat Gran (auto) 0.01 0.00 Absolute Neuts (auto) 2.7 1.6 L Absolute Nucleated RBC 0.000 0.000 Nucleated RBC % (auto) 0.0 0.0 Smear Tech's Comments VERIFIED PT 14.9 H INR 1.3 H APTT 38.3 H Sodium 139 138 Potassium 3.9 3.6 Chloride 108 107 Carbon Dioxide 24 25 Anion Gap 11 L 10 L BUN 3 L 6 L Creatinine 0.65 0.59 Estim Creat Clear Calc 175.5 197.2 Estimated GFR > 60 > 60 Random Glucose 108 125 H Calcium 8.3 L 8.0 L Total Bilirubin 6.0 H 6.7 H AST 140 H 138 H ALT 59 H 53 H Alkaline Phosphatase 189 H 169 H Ammonia 121 H Troponin I High Sens < 2.7 Total Protein 6.9 6.2 L Albumin 2.8 L 2.5 L Urine Color Dark Yellow Urine Appearance Cloudy Urine pH 6.5 Ur Specific [place] 1.015 Urine Protein Negative Urine Glucose (UA) Negative Urine Ketones Negative Urine Blood Negative Urine Nitrite Negative Ur Leukocyte Esterase Trace H Urine RBC 0-2 Urine WBC 0-5 Ur Squamous Epith Cells 0-2 Urine Bacteria None Seen Hyaline Casts 0-2 Urine Opiates Screen Not Detected Ur Buprenorphine Scrn Not Detected Ur Oxycodone Screen Not Detected Urine Methadone Screen Positive H Urine Fentanyl Screen Not Detected Ur Barbiturates Screen Not Detected Ur Phencyclidine Scrn Not Detected Ur Amphetamines Screen Not Detected U Benzodiazepines Scrn POSITIVE H Urine Cocaine Screen Not Detected U Marijuana (THC) Screen Not Detected Ethyl Alcohol 69 Mental Status Exam Mental Status Exam Level of Consciousness: Drowsy Judgement: Poor Medications Medications Current Medications Acetaminophen (Acetaminophen 325 Mg Tablet) 325 mg PO Q6H PRN PRN Reason: Pain, Moderate(Pain Scale 4-6) Last Admin: 06/05/25 12:15 Dose: 325 mg Calcium Carbonate (Calcium Carbonate 750 Mg Tab.Chew) 750 mg PO Q4H PRN PRN Reason: Heartburn Clonidine HCl (Clonidine Hcl 0.1 Mg Tablet) 0.1 mg PO TID [facility]; Protocol Last Admin: 06/05/25 16:13 Dose: 0.1 mg Folic Acid (Folic Acid 1 Mg Tablet) 1 mg PO DAILY LU Stop: 06/08/25 08:59 Last Admin: 06/05/25 09:07 Dose: 1 mg Furosemide (Furosemide 40 Mg Tablet) 40 mg PO DAILY [facility]; Protocol Gabapentin (Gabapentin 400 Mg Capsule) 800 mg PO TID [facility] Last Admin: 06/05/25 14:40 Dose: 800 mg Lactulose (Lactulose 20 Gm/30 Ml Solution) 40 gm PO TID [facility] Last Admin: 06/05/25 14:40 Dose: 40 gm Lorazepam (Lorazepam 1 Mg Tablet) 1 mg PO Q4H PRN PRN Reason: Breakthrough alcohol withdrawa Stop: 06/09/25 03:19 Lorazepam (Lorazepam 1 Mg Tablet) 1 mg PO Q4H [facility]; Taper Stop: 06/09/25 05:29 Last Admin: 06/05/25 14:41 Dose: 1 mg Magnesium Hydroxide (Milk Of Magnesia 30 Ml Oral.Susp) 30 ml PO DAILY PRN PRN Reason: Constipation Magnesium Oxide (Magnesium Oxide 400 Mg Tablet) 400 mg PO DAILY [facility] Melatonin (Melatonin 3 Mg Tablet) 6 mg PO BEDTIME PRN PRN Reason: Insomnia Methadone HCl (Methadone Hcl 20 Mg/2 Ml Oral.Conc) 90 mg PO DAILY@0800 [facility] Last Admin: 06/05/25 10:34 Dose: 90 mg Multivitamins/Vitamin C (Multivitamin Tablet) 1 tab PO DAILY [facility] Stop: 06/08/25 08:59 Last Admin: 06/05/25 09:07 Dose: 1 tab Rifaximin (Rifaximin 550 Mg Tablet) 550 mg PO BID [facility] Last Admin: 06/05/25 09:07 Dose: 550 mg Sertraline HCl (Sertraline Hcl 100 Mg Tablet) 100 mg PO DAILY [facility] Sodium Chloride (0.9 % Sodium Chloride Flush 3 Ml Syringe) 3 ml IVFLUSH QSHIFT [facility] Last Admin: 06/05/25 09:12 Dose: 3 ml Spironolactone (Spironolactone 25 Mg Tablet) 50 mg PO DAILY [facility]; Protocol Tamsulosin HCl (Tamsulosin Hcl 0.4 Mg Capsule) 0.4 mg PO DAILY [facility] Thiamine HCl (Thiamine Hcl 100 Mg Tablet) 100 mg PO DAILY [facility] Stop: 06/08/25 08:59 Last Admin: 06/05/25 09:07 Dose: 100 mg Allergies Allergies Allergy/AdvReac Type Severity Reaction Status Date / Time fish derived (fish) Allergy Anaphylaxis Verified 06/04/25 20:21 shellfish derived Allergy Anaphylaxis Verified 06/04/25 20:21 Pork/Porcine Containing AdvReac Gastrointestinal Verified 06/04/25 20:22 Products Upset Assessment & Plan Assessment & Plan (1) Alcohol use disorder: Status: Acute Code(s): F10.90 - Alcohol use, unspecified, uncomplicated Assessment and Plan: * lorazepam taper in place for mild withdrawal sx. * mental status makes it challenging to discuss any other options for AUD. May be beneficial to include family and discuss severity of illness to potentially have them participate in care, shea as liver function continues to worsen and patients cognitive fucntion appears to decline. Total time managing care of this patient today __25__ minutes. PMFSH Past Medical History Medical History Multiple falls Chronic constipation Methadone maintenance therapy patient Alcohol use disorder, severe, dependence Liver failure Alcoholic cirrhosis of liver with ascites Cirrhosis Cirrhosis Edema Alcohol abuse Increased ammonia level Substance abuse Opiate use Social History Social History Household Members: Other Household Members Other:: Brother Housing: House Do you presently have visiting nurse or other home services: No Alcohol intake: current Alcohol intake frequency: 3 or more drinks per day Alcohol type: hard liquor Comment: refusing alarms Patient Tobacco Use Status: Current everyday Tobacco user Tobacco use type: Cigarette and Smokeless Tobacco Cigarette Packs Per Day: 1 Cigarettes Per Day: 20.0 Smoked in Last 30 Days: Yes e-Cigarette/Vaping Use: Currently Using Patient Interested in Nicotine Replacement: Yes Patient Given Instructions on How to Stop Smoking: Yes Date Education Initiated: 06/05/25 Use of substances other than those prescribed or required for medical reasons: No Currently Displaying Signs/Symptoms of Drug Intoxication Withdrawal: No Have you been hit, kicked, punched, or otherwise hurt by someone within the past year? If so, by whom?: No Do you feel safe in your current relationship?: No Current Relationship Is there a partner from a previous relationship who is making you feel unsafe now?: No Are you made to feel afraid or neglected: No Advance Directives: Yes Advance Directives on File: Yes Advance Directives Date on File: 02/18/25 Do you have a plan to hurt others: No Plan Recently lost weight without trying: No Eating poorly because of decreased appetite: Yes Nutrition Risks: No Nutritional Risk service: No
[2025-06-05 22:46] LABS: Magnesium 1.8 mg/dL (1.6-2.6)
[2025-06-06] VITALS (8 sets, daily range): BP systolic 100–124; BP diastolic 59–78; PULSE 60–75; RESP 12–20; TEMP 36.1–36.8; O2SAT 95–99
[2025-06-06] MEDS: Nicotine 21 MG PATCH.TD24 TRANSDERMA ×2 (03:45→09:32)
--- NOTE | 2025-06-06 05:30 | PC.NURSE ---
06/05/25 1900 RN handover received and acquired care of pt. Pt. refusing bed exit alarm and fall risk socks. In room camera in use. Seizure precautions in place. Pt. somnolent beginning of shift. Awakened to voice but then back to sleep. Mumbles his speech. Pt. more awake at 22:30, ativan given then (see DEC for time). CIWA score of 2 at 20:00 and CIWA score of 2 at 00:00 06/06/25. At initial Biophysical assessment last evening pt. stated he couldn't stop pooping during the day when pt. refused bedtime dose of Lactulose. At 0335, as pt. more awake now pt. stated I haven't peed all day . When pt. questioned about all the BM's he c/o having all day, pt. stated I didn't want to take the Lactulose . At 0400, pt. bladder scanned for 781cc of urine. Pt denies urge to void and pt. states absolutely no straight catheter. Pt. ambulated in hallway with 1 assist and then pt. voided x2 large amts. per pt. in bathroom.
[2025-06-06 07:12] LABS: Hematocrit 37.1 % (42.0-52.0); Hemoglobin 12.9 g/dl (14.0-18.0); Mean Corpuscular HGB Conc 34.8 g/dl (31.0-36.0); Mean Corpuscular Hemoglobin 32.5 pg (27.0-33.0); Mean Corpuscular Volume 93.5 fL (80.0-98.0); NRBC Abs Auto 0.000 X10*3/uL (0.0-0.012); NRBC Pct Auto 0.0 /100WBC (0.0-0.2); Red Blood Count 3.97 X10*6/uL (4.60-5.80); White Blood Count 2.6 X10*3/uL (4.8-10.8)
[2025-06-06 07:16] LABS: Platelet Count 55 X10*3/uL (160-400)
--- NOTE | 2025-06-06 08:50 | ECG_ITS ---
Test Reason : check qt Blood Pressure : */* mmHG Vent. Rate : 60 BPM Atrial Rate : 60 BPM P-R Int : 180 ms QRS Dur : 80 ms QT Int : 534 ms P-R-T Axes : 46 25 3 degrees QTcB Int : 534 ms Normal sinus rhythm Normal ECG When compared with ECG of 04-Jun-2025 20:48, QT has lengthened Referred By: Gagandeep Sandra Electronically Signed By: TINO FRANK
--- NOTE | 2025-06-06 09:15 | PC.NURSE ---
QTc 562, Methadone held by Dr Sandra
[2025-06-06 09:57] LABS: Anion Gap 6 (12-20); Blood Urea Nitrogen 10 mg/dL (9-16); Calcium 8.0 mg/dL (8.4-10.2); Carbon Dioxide 28 mmol/L (22-29); Chloride 107 mmol/L (96-108); Creatinine Clr Calc Pharmacy 184.7; Estimated Glomerular Filt Rate > 60; Magnesium 1.7 mg/dL (1.6-2.6); Potassium 3.6 mmol/L (3.3-5.1); Sodium 137 mmol/L (135-145)
--- NOTE | 2025-06-06 10:44 | HO.PM.IMPN ---
Subjective Subjective Date of Service: 06/06/25 Interval History: still lethargic Physical Exam Exam: Exam: Lethargic oriented x3, jaundice, ill-appearing, sluggish, abdomen soft and nondistended, lungs clear, no acute distress Vital Signs: Vital Signs: Last Vital Signs Temp 97.1 F 06/06/25 07:28 Pulse 65 06/06/25 07:28 Resp 20 06/06/25 07:28 BP 116/65 06/06/25 07:28 Pulse Ox 95 06/06/25 07:28 O2 Del Method Room Air 06/06/25 07:28 BMI result Body Mass Index 38.7 Objective Data Active Medications Acetaminophen (Acetaminophen 325 Mg Tablet) 325 mg PO Q6H PRN PRN Reason: Pain, Moderate(Pain Scale 4-6) Last Admin: 06/05/25 12:15 Dose: 325 mg Documented By: SILVIA Calcium Carbonate (Calcium Carbonate 750 Mg Tab.Chew) 750 mg PO Q4H PRN PRN Reason: Heartburn Clonidine HCl (Clonidine Hcl 0.1 Mg Tablet) 0.1 mg PO TID [facility]; Protocol Last Admin: 06/06/25 09:29 Dose: 0.1 mg Documented By: PRIYANK Folic Acid (Folic Acid 1 Mg Tablet) 1 mg PO DAILY [facility] Stop: 06/08/25 08:59 Last Admin: 06/06/25 09:29 Dose: 1 mg Documented By: PRIYANK Furosemide (Furosemide 40 Mg Tablet) 40 mg PO DAILY [facility]; Protocol Last Admin: 06/06/25 09:31 Dose: 40 mg Documented By: PRIYANK Gabapentin (Gabapentin 400 Mg Capsule) 800 mg PO TID [facility] Last Admin: 06/06/25 09:31 Dose: 800 mg Documented By: PRIYANK Lactulose (Lactulose 20 Gm/30 Ml Solution) 40 gm PO TID [facility] Last Admin: 06/06/25 09:33 Dose: 40 gm Documented By: PRIYANK Lorazepam (Lorazepam 1 Mg Tablet) 1 mg PO Q4H PRN PRN Reason: Breakthrough alcohol withdrawa Stop: 06/09/25 03:19 Lorazepam (Lorazepam 1 Mg Tablet) 1 mg PO Q6H [facility]; Taper Stop: 06/09/25 05:29 Last Admin: 06/06/25 07:30 Dose: Not Given Documented By: KALINA Non-Admin Reason: received last dose at 0338 and sleeping sound Magnesium Hydroxide (Milk Of Magnesia 30 Ml Oral.Susp) 30 ml PO DAILY PRN PRN Reason: Constipation Magnesium Oxide (Magnesium Oxide 400 Mg Tablet) 400 mg PO DAILY [facility] Last Admin: 06/06/25 09:29 Dose: 400 mg Documented By: PRIYANK Melatonin (Melatonin 3 Mg Tablet) 6 mg PO BEDTIME PRN PRN Reason: Insomnia Methadone HCl (Methadone Hcl 20 Mg/2 Ml Oral.Conc) 90 mg PO DAILY@0800 [facility] Last Admin: 06/06/25 09:15 Dose: Not Given Documented By: PRIYANK Non-Admin Reason: Physician Held Med Multivitamins/Vitamin C (Multivitamin Tablet) 1 tab PO DAILY [facility] Stop: 06/08/25 08:59 Last Admin: 06/06/25 09:29 Dose: 1 tab Documented By: PRIYANK Nicotine (Nicotine 21 Mg Patch.Td24) 21 mg TRANSDERMA DAILY [facility] Last Admin: 06/06/25 09:32 Dose: 21 mg Documented By: PRIYANK Rifaximin (Rifaximin 550 Mg Tablet) 550 mg PO BID [facility] Last Admin: 06/06/25 09:29 Dose: 550 mg Documented By: PRIYANK Sertraline HCl (Sertraline Hcl 100 Mg Tablet) 100 mg PO DAILY [facility] Last Admin: 06/06/25 09:32 Dose: 100 mg Documented By: PRIYANK Sodium Chloride (0.9 % Sodium Chloride Flush 3 Ml Syringe) 3 ml IVFLUSH [facility] Last Admin: 06/05/25 22:11 Dose: 3 ml Documented By: KALINA Spironolactone (Spironolactone 25 Mg Tablet) 50 mg PO DAILY [facility]; Protocol Last Admin: 06/06/25 09:30 Dose: 50 mg Documented By: PRIYANK Tamsulosin HCl (Tamsulosin Hcl 0.4 Mg Capsule) 0.4 mg PO DAILY [facility] Last Admin: 06/06/25 09:29 Dose: 0.4 mg Documented By: PRIYANK Thiamine HCl (Thiamine Hcl 100 Mg Tablet) 100 mg PO DAILY [facility] Stop: 06/08/25 08:59 Last Admin: 06/06/25 09:29 Dose: 100 mg Documented By: PRIYANK Labs 06/06/25 06:27 06/06/25 08:26 Labs: Laboratory Results - last 24 hr 06/05/25 06/06/25 06/06/25 20:54 06:27 08:26 MCV 93.5 MCH 32.5 MCHC 34.8 RDW 13.5 Plt Count 55 L MPV 11.2 Absolute Nucleated RBC 0.000 Nucleated RBC % (auto) 0.0 Anion Gap 6 L Estim Creat Clear Calc 184.7 Estimated GFR > 60 Random Glucose 137 H Calcium 8.0 L Magnesium 1.8 1.7 Assessment and Plan (1) Alcohol use disorder: Status: Acute Plan 35M PMH alcohol dependence, HCV, decompensated liver cirrhosis, opiate dependence on methadone, obesity presented with fall Fall due to acute metabolic encephalopathy due to hepatic encephalopathy due to alcohol and HCV cirrhosis was Continue lactulose and rifaximin Goal of 2-4 bowel movements per day Monitor CIWA Continue vitamins Opiate dependence Methadone - hold for prolonged qt Obesity Weight loss recommended DVT prophylaxis-mechanical due to chronic thrombocytopenia from cirrhosis Full code reason for continued hospitalization: Treatment of encephalopathy Quality Stroke Does the patient have a stroke diagnosis?: No VTE Prior VTE?: No VTE Risk Level:: Medical - moderate - high VTE Device Contraindication: Treatment Not Indicated VTE Drug Contraindication: N/A - Med Ordered
[2025-06-06] MEDS: 0.9 % Sodium Chloride Flush 3 ML SYRINGE IVFLUSH ×3 (11:06→20:56)
--- NOTE | 2025-06-06 12:20 | P.CDIM_ITS ---
PROVIDER RESPONSE TEXT: To clarify, the appropriate diagnosis supported by the clinical indicators: Pancytopenia: chornic QUERY TEXT: PHYSICIAN'S DOCUMENTATION REQUEST Date of Query: 06/06/2025 12:09 PM EDT Patient Name: Shay Nicholas Admit Date: 06/05/2025 Dear Gagandeep Sandra MD, A review of the medical record indicates additional documentation may be needed. Please review below and update the documentation accordingly. Clinical Indicators: LABS: WBC 2.6 RBC 3.97 PLT 55 L ABS. NEUTS 1.6 L Cirrhosis due to alcohol and HCV Based on the above, could you clarify if there is a diagnosis that correlates with these findings? Pancytopenia possible, probable, suspected etc. Other specifics to the above findings Other (explain) Clinically unable to determine (explain) Thank you, Lupe Cerda, CCS, CDIS Use of terms such as suspected, likely, concern for, or probable (associated with a specific diagnosis that is being evaluated, monitored, or treated as if it exists) are acceptable and can be coded in the inpatient setting, when documented at the time of discharge. Please use your independent medical judgment in providing your response. THIS QUERY IS PART OF THE PERMANENT MEDICAL RECORD
--- NOTE | 2025-06-06 16:30 | PC.NURSE ---
Pt agitated , requesting Methadone , pacing on the hallway. Dr Chamorro was notified , recovery nurse present at the bedside for support. Morphine 2 mg Q6 hrs PRN was ordered for withdrawal . Pt swearing, stated that this amount if Morphine is not helping , multiple statements that he wants to leave AMA . DR Sandra aware about pt's behavior
--- NOTE | 2025-06-06 17:27 | MHC.RECOVRN ---
Late entry: TW met with pt in 452 to offer continued support. Pt reports he wants to leave AMA because he was not given his methadone. Methadone was held due to QTc 534. Pt was educated why he was not able to receive his dose to which he responded, then I'll just go somewhere else . Pt was further educated that any other hospital or provider would more than likely hold his dose due to the condition of his heart. TW further explained that we have his best interest in mind and the staff want him to be comfortable but healthy. Pt then got up from bed, left room, began ambulating down the winter, and stated, I'm going to find the doctor . TW waked with pt and persuaded him to return to bed. Pt followed TW's lead and returned to room. Pt thn picked up his cell phone and attemptd to make a call while sitting at the table in his room. He provided icecream. TW expained to pt that morphine was expected to be ordered until a repeat EKG could be performed and his QTc showed improvement. Pt was temporarily satisfied with this explanation. Tw is available for further questions or concerns if needed.
[2025-06-07] VITALS (9 sets, daily range): BP systolic 106–125; BP diastolic 55–74; PULSE 66–81; RESP 16–20; TEMP 36.1–37; O2SAT 96–99
[2025-06-07 07:07] LABS: Ammonia 107 umol/L (13-55)
[2025-06-07 07:15] LABS: Alanine Aminotransferase 50 U/L (0-40); Albumin Level 2.4 g/dL (3.5-5.0); Alkaline Phosphatase 159 U/L (39-117); Anion Gap 11 (12-20); Aspartate Amino Transferase 132 U/L (5-37); Blood Urea Nitrogen 7 mg/dL (9-16); Calcium 8.0 mg/dL (8.4-10.2); Carbon Dioxide 26 mmol/L (22-29); Chloride 103 mmol/L (96-108); Creatinine Clr Calc Pharmacy 173.7; Estimated Glomerular Filt Rate > 60; Potassium 3.5 mmol/L (3.3-5.1); Sodium 136 mmol/L (135-145); Total Protein 5.8 g/dL (6.5-8.0)
--- NOTE | 2025-06-07 07:38 | ECG_ITS ---
Test Reason : ck rhythm Blood Pressure : */* mmHG Vent. Rate : 67 BPM Atrial Rate : 67 BPM P-R Int : 192 ms QRS Dur : 82 ms QT Int : 468 ms P-R-T Axes : 45 10 -1 degrees QTcB Int : 494 ms Normal sinus rhythm Prolonged QT Abnormal ECG When compared with ECG of 06-Jun-2025 09:06, QT has shortened Referred By: Gagandeep Sandra Electronically Signed By: TINO FRANK
[2025-06-07] MEDS: methADONE HCl 20 MG/2 ML ORAL.CONC 90 MG PO (08:09)
[2025-06-07] MEDS: Nicotine 21 MG PATCH.TD24 TRANSDERMA (08:11)
[2025-06-07] MEDS: 0.9 % Sodium Chloride Flush 3 ML SYRINGE IVFLUSH ×3 (08:13→21:44)
--- NOTE | 2025-06-07 08:44 | HO.PM.IMPN ---
Subjective Subjective Date of Service: 06/07/25 Interval History: reports 3BMs Physical Exam Exam: Exam: Lethargic oriented x3, jaundice, ill-appearing, sluggish, abdomen soft and nondistended, lungs clear, no acute distress Vital Signs: Vital Signs: Last Vital Signs Temp 97.1 F 06/07/25 07:04 Pulse 66 06/07/25 07:04 Resp 20 06/07/25 07:04 BP 113/67 06/07/25 07:04 Pulse Ox 99 06/07/25 07:04 O2 Del Method Room Air 06/07/25 07:04 BMI result Body Mass Index 38.7 Objective Data Active Medications Acetaminophen (Acetaminophen 325 Mg Tablet) 325 mg PO Q6H PRN PRN Reason: Pain, Moderate(Pain Scale 4-6) Last Admin: 06/05/25 12:15 Dose: 325 mg Documented By: SILVIA Calcium Carbonate (Calcium Carbonate 750 Mg Tab.Chew) 750 mg PO Q4H PRN PRN Reason: Heartburn Clonidine HCl (Clonidine Hcl 0.1 Mg Tablet) 0.1 mg PO TID [facility]; Protocol Last Admin: 06/07/25 08:12 Dose: 0.1 mg Documented By: WEN Folic Acid (Folic Acid 1 Mg Tablet) 1 mg PO DAILY [facility] Stop: 06/08/25 08:59 Last Admin: 06/07/25 08:13 Dose: 1 mg Documented By: WEN Furosemide (Furosemide 40 Mg Tablet) 40 mg PO DAILY [facility]; Protocol Last Admin: 06/07/25 08:12 Dose: 40 mg Documented By: WEN Gabapentin (Gabapentin 400 Mg Capsule) 800 mg PO TID [facility] Last Admin: 06/07/25 08:12 Dose: 800 mg Documented By: WEN Lactulose (Lactulose 20 Gm/30 Ml Solution) 40 gm PO TID [facility] Last Admin: 06/07/25 08:13 Dose: 40 gm Documented By: WEN Lorazepam (Lorazepam 1 Mg Tablet) 1 mg PO Q4H PRN PRN Reason: Breakthrough alcohol withdrawa Stop: 06/09/25 03:19 Lorazepam (Lorazepam 1 Mg Tablet) 0.5 mg PO Q6H [facility]; Taper Stop: 06/09/25 05:29 Last Admin: 06/07/25 05:40 Dose: 0.5 mg Documented By: KALINA Magnesium Hydroxide (Milk Of Magnesia 30 Ml Oral.Susp) 30 ml PO DAILY PRN PRN Reason: Constipation Magnesium Oxide (Magnesium Oxide 400 Mg Tablet) 400 mg PO DAILY [facility] Last Admin: 06/07/25 08:13 Dose: 400 mg Documented By: WEN Melatonin (Melatonin 3 Mg Tablet) 6 mg PO BEDTIME PRN PRN Reason: Insomnia Methadone HCl (Methadone Hcl 20 Mg/2 Ml Oral.Conc) 90 mg PO DAILY@0800 [facility] Last Admin: 06/07/25 08:09 Dose: 90 mg Documented By: WEN Co-signed By: YAN Morphine Sulfate (Morphine Sulfate 2 Mg/Ml Cartridge) 2 mg IVPUSH Q6H PRN; Protocol PRN Reason: withdrawal Last Admin: 06/07/25 02:31 Dose: 2 mg Documented By: CHANTALE Multivitamins/Vitamin C (Multivitamin Tablet) 1 tab PO DAILY [facility] Stop: 06/08/25 08:59 Last Admin: 06/07/25 08:12 Dose: 1 tab Documented By: WEN Nicotine (Nicotine 21 Mg Patch.Td24) 21 mg TRANSDERMA DAILY [facility] Last Admin: 06/07/25 08:11 Dose: 21 mg Documented By: WEN Rifaximin (Rifaximin 550 Mg Tablet) 550 mg PO BID [facility] Last Admin: 06/07/25 08:12 Dose: 550 mg Documented By: WEN Sertraline HCl (Sertraline Hcl 100 Mg Tablet) 100 mg PO DAILY [facility] Last Admin: 06/07/25 08:12 Dose: 100 mg Documented By: WEN Sodium Chloride (0.9 % Sodium Chloride Flush 3 Ml Syringe) 3 ml IVFLUSH [facility] Last Admin: 06/07/25 08:13 Dose: 3 ml Documented By: WEN Spironolactone (Spironolactone 25 Mg Tablet) 50 mg PO DAILY [facility]; Protocol Last Admin: 06/07/25 08:12 Dose: 50 mg Documented By: WEN Tamsulosin HCl (Tamsulosin Hcl 0.4 Mg Capsule) 0.4 mg PO DAILY [facility] Last Admin: 06/07/25 08:13 Dose: 0.4 mg Documented By: WEN Thiamine HCl (Thiamine Hcl 100 Mg Tablet) 100 mg PO DAILY [facility] Stop: 06/08/25 08:59 Last Admin: 06/07/25 08:13 Dose: 100 mg Documented By: WEN Labs 06/06/25 06:27 06/07/25 06:49 Labs: Laboratory Results - last 24 hr 06/06/25 06/07/25 08:26 06:49 Anion Gap 6 L 11 L Estim Creat Clear Calc 184.7 173.7 Estimated GFR > 60 > 60 Random Glucose 137 H 183 H Calcium 8.0 L 8.0 L Magnesium 1.7 Total Bilirubin 4.6 H Direct Bilirubin 3.2 H AST 132 H ALT 50 H Alkaline Phosphatase 159 H Ammonia 107 H Total Protein 5.8 L Albumin 2.4 L Assessment and Plan (1) Alcohol use disorder: Status: Acute Plan 35M PMH alcohol dependence, HCV, decompensated liver cirrhosis, opiate dependence on methadone, obesity presented with fall Fall due to acute metabolic encephalopathy due to hepatic encephalopathy due to alcohol and HCV cirrhosis was Continue lactulose and rifaximin Goal of 2-4 bowel movements per day Monitor CIWA Continue vitamins Opiate dependence qt improved, can resume methadone Obesity Weight loss recommended DVT prophylaxis-mechanical due to chronic thrombocytopenia from cirrhosis Full code reason for continued hospitalization: Treatment of encephalopathy Quality Stroke Does the patient have a stroke diagnosis?: No VTE Prior VTE?: No VTE Risk Level:: Medical - moderate - high VTE Device Contraindication: Treatment Not Indicated VTE Drug Contraindication: N/A - Med Ordered
--- NOTE | 2025-06-07 13:27 | MHC.CM.PN ---
EMR reviewed and per MD rounds, pt is not medically cleared for discharge due to management of encephalopathy.
[2025-06-08] VITALS (7 sets, daily range): BP systolic 104–118; BP diastolic 54–69; PULSE 75–87; RESP 18–75; TEMP 36.3–36.9; O2SAT 92–98
[2025-06-08 07:22] LABS: Hematocrit 36.2 % (42.0-52.0); Hemoglobin 13.2 g/dl (14.0-18.0); Mean Corpuscular HGB Conc 36.5 g/dl (31.0-36.0); Mean Corpuscular Hemoglobin 33.2 pg (27.0-33.0); Mean Corpuscular Volume 91.2 fL (80.0-98.0); NRBC Abs Auto 0.020 X10*3/uL (0.0-0.012); NRBC Pct Auto 0.7 /100WBC (0.0-0.2); Red Blood Count 3.97 X10*6/uL (4.60-5.80); White Blood Count 3.0 X10*3/uL (4.8-10.8)
[2025-06-08 07:32] LABS: Alanine Aminotransferase 48 U/L (0-40); Albumin Level 2.4 g/dL (3.5-5.0); Alkaline Phosphatase 171 U/L (39-117); Anion Gap 13 (12-20); Aspartate Amino Transferase 145 U/L (5-37); Blood Urea Nitrogen 9 mg/dL (9-16); Calcium 8.0 mg/dL (8.4-10.2); Carbon Dioxide 23 mmol/L (22-29); Chloride 104 mmol/L (96-108); Creatinine Clr Calc Pharmacy 190.8; Estimated Glomerular Filt Rate > 60; Magnesium 1.6 mg/dL (1.6-2.6); Potassium 3.5 mmol/L (3.3-5.1); Sodium 136 mmol/L (135-145); Total Protein 6.3 g/dL (6.5-8.0)
[2025-06-08] MEDS: Nicotine 21 MG PATCH.TD24 TRANSDERMA (08:26)
[2025-06-08] MEDS: 0.9 % Sodium Chloride Flush 3 ML SYRINGE IVFLUSH ×3 (08:27→21:14)
[2025-06-08] MEDS: methADONE HCl 20 MG/2 ML ORAL.CONC 90 MG PO (08:28)
--- NOTE | 2025-06-08 09:39 | P.PNIM_ITS ---
Subjective Subjective Date of Service: 06/08/25 Interval History: intermittent compliance with lacutlose reports mutliple stools, but only 1 witnessed Physical Exam 2 Exam: Exam: Lethargic oriented x3, jaundice, ill-appearing, sluggish, abdomen soft and nondistended, lungs clear, no acute distress Vital Signs: Vital Signs: Last Vital Signs Temp 97.4 F 06/08/25 07:52 Pulse 77 06/08/25 07:52 Resp 18 06/08/25 07:52 BP 104/60 06/08/25 07:52 Pulse Ox 95 06/08/25 07:52 O2 Del Method Room Air 06/08/25 07:52 BMI result Body Mass Index 38.7 Objective Data Active Medications Acetaminophen (Acetaminophen 325 Mg Tablet) 325 mg PO Q6H PRN PRN Reason: Pain, Moderate(Pain Scale 4-6) Last Admin: 06/05/25 12:15 Dose: 325 mg Documented By: SILVIA Calcium Carbonate (Calcium Carbonate 750 Mg Tab.Chew) 750 mg PO Q4H PRN PRN Reason: Heartburn Clonidine HCl (Clonidine Hcl 0.1 Mg Tablet) 0.1 mg PO TID [facility]; Protocol Last Admin: 06/08/25 08:27 Dose: 0.1 mg Documented By: COY Furosemide (Furosemide 40 Mg Tablet) 40 mg PO DAILY [facility]; Protocol Last Admin: 06/08/25 08:27 Dose: 40 mg Documented By: COY Gabapentin (Gabapentin 400 Mg Capsule) 800 mg PO TID [facility] Last Admin: 06/08/25 08:31 Dose: 800 mg Documented By: COY Lactulose (Lactulose 20 Gm/30 Ml Solution) 40 gm PO TID [facility] Last Admin: 06/08/25 08:25 Dose: 40 gm Documented By: COY Lorazepam (Lorazepam 1 Mg Tablet) 1 mg PO Q4H PRN PRN Reason: Breakthrough alcohol withdrawa Stop: 06/09/25 03:19 Last Admin: 06/07/25 21:48 Dose: 1 mg Documented By: FRANCA Lorazepam (Lorazepam 1 Mg Tablet) 0.5 mg PO Q6H LU; Taper Stop: 06/09/25 05:29 Last Admin: 06/08/25 06:07 Dose: 0.5 mg Documented By: FRANCA Magnesium Hydroxide (Milk Of Magnesia 30 Ml Oral.Susp) 30 ml PO DAILY PRN PRN Reason: Constipation Magnesium Oxide (Magnesium Oxide 400 Mg Tablet) 400 mg PO DAILY [facility] Last Admin: 06/08/25 08:26 Dose: 400 mg Documented By: COY Melatonin (Melatonin 3 Mg Tablet) 6 mg PO BEDTIME PRN PRN Reason: Insomnia Methadone HCl (Methadone Hcl 20 Mg/2 Ml Oral.Conc) 90 mg PO DAILY@0800 [facility] Last Admin: 06/08/25 08:28 Dose: 90 mg Documented By: COY Co-signed By: WEN Morphine Sulfate (Morphine Sulfate 2 Mg/Ml Cartridge) 2 mg IVPUSH Q6H PRN; Protocol PRN Reason: withdrawal Last Admin: 06/08/25 06:22 Dose: 2 mg Documented By: FRANCA Nicotine (Nicotine 21 Mg Patch.Td24) 21 mg TRANSDERMA DAILY [facility] Last Admin: 06/08/25 08:26 Dose: 21 mg Documented By: COY Rifaximin (Rifaximin 550 Mg Tablet) 550 mg PO BID [facility] Last Admin: 06/08/25 08:26 Dose: 550 mg Documented By: COY Sertraline HCl (Sertraline Hcl 100 Mg Tablet) 100 mg PO DAILY [facility] Last Admin: 06/08/25 08:27 Dose: 100 mg Documented By: COY Sodium Chloride (0.9 % Sodium Chloride Flush 3 Ml Syringe) 3 ml IVFLUSH QSHIFT [facility] Last Admin: 06/08/25 08:27 Dose: 3 ml Documented By: COY Spironolactone (Spironolactone 25 Mg Tablet) 50 mg PO DAILY [facility]; Protocol Last Admin: 06/08/25 08:27 Dose: 50 mg Documented By: COY Tamsulosin HCl (Tamsulosin Hcl 0.4 Mg Capsule) 0.4 mg PO DAILY [facility] Last Admin: 06/08/25 08:27 Dose: 0.4 mg Documented By: COY Labs 06/08/25 06:46 06/08/25 06:46 Labs: Laboratory Results - last 24 hr 06/08/25 06:46 MCV 91.2 MCH 33.2 H MCHC 36.5 H RDW 13.7 Plt Count TNP MPV TNP Absolute Nucleated RBC 0.020 H Nucleated RBC % (auto) 0.7 H Anion Gap 13 Estim Creat Clear Calc 190.8 Estimated GFR > 60 Random Glucose 87 Calcium 8.0 L Magnesium 1.6 Total Bilirubin 5.7 H Direct Bilirubin 3.5 H AST 145 H ALT 48 H Alkaline Phosphatase 171 H Total Protein 6.3 L Albumin 2.4 L Assessment and Plan (1) Alcohol use disorder: Status: Acute Plan 35M PMH alcohol dependence, HCV, decompensated liver cirrhosis, opiate dependence on methadone, obesity presented with fall Fall due to acute metabolic encephalopathy due to hepatic encephalopathy due to alcohol and HCV cirrhosis was Continue lactulose and rifaximin Goal of 2-4 bowel movements per day Monitor CIWA Continue vitamins Opiate dependence qt improved, can resume methadone Obesity Weight loss recommended DVT prophylaxis-mechanical due to chronic thrombocytopenia from cirrhosis Full code reason for continued hospitalization: Treatment of encephalopathy Quality Stroke Does the patient have a stroke diagnosis?: No VTE Prior VTE?: No VTE Risk Level:: Medical - moderate - high VTE Device Contraindication: Treatment Not Indicated VTE Drug Contraindication: N/A - Med Ordered
[2025-06-09] VITALS (7 sets, daily range): BP systolic 100–121; BP diastolic 57–74; PULSE 65–80; RESP 16–20; TEMP 36.2–36.9; O2SAT 93–97
[2025-06-09] MEDS: 0.9 % Sodium Chloride Flush 3 ML SYRINGE IVFLUSH ×3 (07:53→20:50)
[2025-06-09] MEDS: Nicotine 21 MG PATCH.TD24 TRANSDERMA (07:55)
[2025-06-09] MEDS: methADONE HCl 20 MG/2 ML ORAL.CONC 90 MG PO (07:59)
[2025-06-09 08:07] LABS: NRBC Abs Auto 0.000 X10*3/uL (0.0-0.012); NRBC Pct Auto 0.0 /100WBC (0.0-0.2); PLT CLUMP 1
[2025-06-09 08:09] LABS: Hematocrit 35.5 % (42.0-52.0); Hemoglobin 12.4 g/dl (14.0-18.0); Mean Corpuscular HGB Conc 34.9 g/dl (31.0-36.0); Mean Corpuscular Hemoglobin 32.1 pg (27.0-33.0); Mean Corpuscular Volume 92.0 fL (80.0-98.0); Platelet Count 45 X10*3/uL (160-400); Red Blood Count 3.86 X10*6/uL (4.60-5.80); White Blood Count 3.1 X10*3/uL (4.8-10.8)
[2025-06-09 08:26] LABS: Alanine Aminotransferase 51 U/L (0-40); Albumin Level 2.6 g/dL (3.5-5.0); Alkaline Phosphatase 175 U/L (39-117); Anion Gap 12 (12-20); Aspartate Amino Transferase 141 U/L (5-37); Blood Urea Nitrogen 7 mg/dL (9-16); Calcium 7.9 mg/dL (8.4-10.2); Carbon Dioxide 27 mmol/L (22-29); Chloride 101 mmol/L (96-108); Creatinine Clr Calc Pharmacy 184.7; Estimated Glomerular Filt Rate > 60; Magnesium 1.7 mg/dL (1.6-2.6); Potassium 3.2 mmol/L (3.3-5.1); Sodium 137 mmol/L (135-145); Total Protein 6.6 g/dL (6.5-8.0)
--- NOTE | 2025-06-09 09:01 | P.PNIM_ITS ---
Subjective Subjective Date of Service: 06/09/25 Interval History: continues to report stools, but unwitnessed Physical Exam 2 Exam: Exam: Lethargic oriented x3, jaundice, ill-appearing, sluggish, abdomen soft and nondistended, lungs clear, no acute distress Vital Signs: Vital Signs: Last Vital Signs Temp 97.2 F 06/09/25 07:57 Pulse 67 06/09/25 07:57 Resp 18 06/09/25 07:57 BP 100/58 L 06/09/25 07:57 Pulse Ox 95 06/09/25 07:57 O2 Del Method Room Air 06/09/25 07:57 BMI result Body Mass Index 38.7 Objective Data Active Medications Acetaminophen (Acetaminophen 325 Mg Tablet) 325 mg PO Q6H PRN PRN Reason: Pain, Moderate(Pain Scale 4-6) Last Admin: 06/05/25 12:15 Dose: 325 mg Documented By: SILVIA Calcium Carbonate (Calcium Carbonate 750 Mg Tab.Chew) 750 mg PO Q4H PRN PRN Reason: Heartburn Clonidine HCl (Clonidine Hcl 0.1 Mg Tablet) 0.1 mg PO TID [facility]; Protocol Last Admin: 06/09/25 07:57 Dose: 0.1 mg Documented By: COY Furosemide (Furosemide 40 Mg Tablet) 40 mg PO DAILY [facility]; Protocol Last Admin: 06/09/25 07:58 Dose: 40 mg Documented By: COY Gabapentin (Gabapentin 400 Mg Capsule) 800 mg PO TID [facility] Last Admin: 06/09/25 07:56 Dose: 800 mg Documented By: COY Lactulose (Lactulose 20 Gm/30 Ml Solution) 40 gm PO TID [facility] Last Admin: 06/09/25 08:00 Dose: 40 gm Documented By: COY Magnesium Hydroxide (Milk Of Magnesia 30 Ml Oral.Susp) 30 ml PO DAILY PRN PRN Reason: Constipation Magnesium Oxide (Magnesium Oxide 400 Mg Tablet) 400 mg PO DAILY [facility] Last Admin: 06/09/25 07:57 Dose: 400 mg Documented By: COY Melatonin (Melatonin 3 Mg Tablet) 6 mg PO BEDTIME PRN PRN Reason: Insomnia Methadone HCl (Methadone Hcl 20 Mg/2 Ml Oral.Conc) 90 mg PO DAILY@0800 [facility] Last Admin: 06/09/25 07:59 Dose: 90 mg Documented By: COY Co-signed By: WEN Comments: Morphine Sulfate (Morphine Sulfate 2 Mg/Ml Cartridge) 2 mg IVPUSH Q6H PRN; Protocol PRN Reason: withdrawal Last Admin: 06/09/25 04:18 Dose: 2 mg Documented By: FRANCA Nicotine (Nicotine 21 Mg Patch.Td24) 21 mg TRANSDERMA DAILY [facility] Last Admin: 06/09/25 07:55 Dose: 21 mg Documented By: COY Rifaximin (Rifaximin 550 Mg Tablet) 550 mg PO BID [facility] Last Admin: 06/09/25 07:58 Dose: 550 mg Documented By: COY Sertraline HCl (Sertraline Hcl 100 Mg Tablet) 100 mg PO DAILY [facility] Last Admin: 06/09/25 07:58 Dose: 100 mg Documented By: COY Sodium Chloride (0.9 % Sodium Chloride Flush 3 Ml Syringe) 3 ml IVFLUSH QSHIFT [facility] Last Admin: 06/09/25 07:53 Dose: 3 ml Documented By: COY Spironolactone (Spironolactone 25 Mg Tablet) 50 mg PO DAILY [facility]; Protocol Last Admin: 06/09/25 07:58 Dose: 50 mg Documented By: COY Tamsulosin HCl (Tamsulosin Hcl 0.4 Mg Capsule) 0.4 mg PO DAILY [facility] Last Admin: 06/09/25 07:59 Dose: 0.4 mg Documented By: COY Labs 06/09/25 07:16 06/09/25 07:16 Labs: Laboratory Results - last 24 hr 06/09/25 07:16 MCV 92.0 MCH 32.1 MCHC 34.9 RDW 13.5 Plt Count 45 L MPV 11.5 Absolute Nucleated RBC 0.000 Nucleated RBC % (auto) 0.0 Anion Gap 12 Estim Creat Clear Calc 184.7 Estimated GFR > 60 Random Glucose 109 Calcium 7.9 L Magnesium 1.7 Total Bilirubin 5.2 H Direct Bilirubin 3.5 H AST 141 H ALT 51 H Alkaline Phosphatase 175 H Total Protein 6.6 Albumin 2.6 L Assessment and Plan (1) Alcohol use disorder: Status: Acute Plan 35M PMH alcohol dependence, HCV, decompensated liver cirrhosis, opiate dependence on methadone, obesity presented with fall Fall due to acute metabolic encephalopathy due to hepatic encephalopathy due to alcohol and HCV cirrhosis was Continue lactulose and rifaximin Goal of 2-4 bowel movements per day Monitor CIWA Continue vitamins reports stools, but likely overestimated as inconstently taking lacutlose and minimal clinical improvement Opiate dependence qt improved, can resume methadone Obesity Weight loss recommended DVT prophylaxis-mechanical due to chronic thrombocytopenia from cirrhosis Full code reason for continued hospitalization: Treatment of encephalopathy Quality Stroke Does the patient have a stroke diagnosis?: No VTE Prior VTE?: No VTE Risk Level:: Medical - moderate - high VTE Device Contraindication: Treatment Not Indicated VTE Drug Contraindication: N/A - Med Ordered
[2025-06-09] MEDS: Potassium Chloride ER 20 MEQ TAB.ER.PRT 40 MEQ PO (09:46)
[2025-06-10] VITALS (10 sets, daily range): BP systolic 95–115; BP diastolic 53–67; PULSE 65–88; RESP 16–19; TEMP 36.2–36.7; O2SAT 95–98
--- NOTE | 2025-06-10 01:54 | PC.NURSE ---
pt in 810 right side pain. Morphine not due until 0248. MD Lomax okayed early dose.
[2025-06-10] MEDS: 0.9 % Sodium Chloride Flush 3 ML SYRINGE IVFLUSH ×3 (08:04→21:04)
[2025-06-10] MEDS: Nicotine 21 MG PATCH.TD24 TRANSDERMA (08:04)
[2025-06-10] MEDS: methADONE HCl 20 MG/2 ML ORAL.CONC 90 MG PO (08:05)
[2025-06-10 08:13] LABS: Hematocrit 35.0 % (42.0-52.0); Hemoglobin 12.3 g/dl (14.0-18.0); Mean Corpuscular HGB Conc 35.1 g/dl (31.0-36.0); Mean Corpuscular Hemoglobin 32.5 pg (27.0-33.0); Mean Corpuscular Volume 92.3 fL (80.0-98.0); NRBC Abs Auto 0.000 X10*3/uL (0.0-0.012); NRBC Pct Auto 0.0 /100WBC (0.0-0.2); Red Blood Count 3.79 X10*6/uL (4.60-5.80); White Blood Count 2.7 X10*3/uL (4.8-10.8)
[2025-06-10 08:16] LABS: Platelet Count 44 X10*3/uL (160-400)
[2025-06-10 08:25] LABS: Ammonia 135 umol/L (13-55)
[2025-06-10 08:44] LABS: Alanine Aminotransferase 55 U/L (0-40); Albumin Level 2.6 g/dL (3.5-5.0); Alkaline Phosphatase 192 U/L (39-117); Anion Gap 9 (12-20); Aspartate Amino Transferase 145 U/L (5-37); Blood Urea Nitrogen 7 mg/dL (9-16); Calcium 8.0 mg/dL (8.4-10.2); Carbon Dioxide 27 mmol/L (22-29); Chloride 105 mmol/L (96-108); Creatinine Clr Calc Pharmacy 179.0; Estimated Glomerular Filt Rate > 60; Magnesium 1.6 mg/dL (1.6-2.6); Potassium 3.1 mmol/L (3.3-5.1); Sodium 138 mmol/L (135-145); Total Protein 6.2 g/dL (6.5-8.0)
--- NOTE | 2025-06-10 09:32 | HO.PM.IMPN ---
Subjective Subjective Date of Service: 06/10/25 Interval History: a bit mroe awake today Physical Exam Exam: Exam: less Lethargic oriented x3, jaundice, ill-appearing, sluggish, abdomen soft and nondistended, lungs clear, no acute distress Vital Signs: Vital Signs: Last Vital Signs Temp 97.2 F 06/10/25 07:37 Pulse 70 06/10/25 07:37 Resp 18 06/10/25 08:26 BP 111/63 06/10/25 07:37 Pulse Ox 96 06/10/25 07:37 O2 Del Method Room Air 06/10/25 07:37 BMI result Body Mass Index 38.7 Objective Data Active Medications Acetaminophen (Acetaminophen 325 Mg Tablet) 325 mg PO Q6H PRN PRN Reason: Pain, Moderate(Pain Scale 4-6) Last Admin: 06/05/25 12:15 Dose: 325 mg Documented By: SILVIA Calcium Carbonate (Calcium Carbonate 750 Mg Tab.Chew) 750 mg PO Q4H PRN PRN Reason: Heartburn Clonidine HCl (Clonidine Hcl 0.1 Mg Tablet) 0.1 mg PO TID [facility]; Protocol Last Admin: 06/10/25 08:04 Dose: 0.1 mg Documented By: WEN Furosemide (Furosemide 40 Mg Tablet) 40 mg PO DAILY [facility]; Protocol Last Admin: 06/10/25 08:04 Dose: 40 mg Documented By: WEN Gabapentin (Gabapentin 400 Mg Capsule) 800 mg PO TID [facility] Last Admin: 06/10/25 08:04 Dose: 800 mg Documented By: WEN Lactulose (Lactulose 20 Gm/30 Ml Solution) 40 gm PO TID [facility] Last Admin: 06/10/25 08:05 Dose: 40 gm Documented By: WEN Magnesium Hydroxide (Milk Of Magnesia 30 Ml Oral.Susp) 30 ml PO DAILY PRN PRN Reason: Constipation Magnesium Oxide (Magnesium Oxide 400 Mg Tablet) 400 mg PO DAILY [facility] Last Admin: 06/10/25 08:04 Dose: 400 mg Documented By: WEN Melatonin (Melatonin 3 Mg Tablet) 6 mg PO BEDTIME PRN PRN Reason: Insomnia Last Admin: 06/09/25 20:48 Dose: 6 mg Documented By: JOZEF Methadone HCl (Methadone Hcl 20 Mg/2 Ml Oral.Conc) 90 mg PO DAILY@0800 [facility] Last Admin: 06/10/25 08:05 Dose: 90 mg Documented By: WEN Co-signed By: JIMMY Morphine Sulfate (Morphine Sulfate 2 Mg/Ml Cartridge) 2 mg IVPUSH Q6H PRN; Protocol PRN Reason: withdrawal Last Admin: 06/10/25 08:26 Dose: 2 mg Documented By: WEN Nicotine (Nicotine 21 Mg Patch.Td24) 21 mg TRANSDERMA DAILY [facility] Last Admin: 06/10/25 08:04 Dose: 21 mg Documented By: WEN Rifaximin (Rifaximin 550 Mg Tablet) 550 mg PO BID [facility] Last Admin: 06/10/25 08:04 Dose: 550 mg Documented By: WEN Sertraline HCl (Sertraline Hcl 100 Mg Tablet) 100 mg PO DAILY [facility] Last Admin: 06/10/25 08:04 Dose: 100 mg Documented By: WEN Sodium Chloride (0.9 % Sodium Chloride Flush 3 Ml Syringe) 3 ml IVFLUSH QSHIFT [facility] Last Admin: 06/10/25 08:04 Dose: 3 ml Documented By: WEN Spironolactone (Spironolactone 25 Mg Tablet) 50 mg PO DAILY [facility]; Protocol Last Admin: 06/10/25 08:04 Dose: 50 mg Documented By: WEN Tamsulosin HCl (Tamsulosin Hcl 0.4 Mg Capsule) 0.4 mg PO DAILY [facility] Last Admin: 06/10/25 08:04 Dose: 0.4 mg Documented By: WEN Labs 06/10/25 08:01 06/10/25 08:01 Labs: Laboratory Results - last 24 hr 06/10/25 08:01 MCV 92.3 MCH 32.5 MCHC 35.1 RDW 13.7 Plt Count 44 L MPV 10.6 Absolute Nucleated RBC 0.000 Nucleated RBC % (auto) 0.0 Anion Gap 9 L Estim Creat Clear Calc 179.0 Estimated GFR > 60 Random Glucose 149 H Calcium 8.0 L Magnesium 1.6 Total Bilirubin 4.2 H Direct Bilirubin 3.0 H AST 145 H ALT 55 H Alkaline Phosphatase 192 H Ammonia 135 H Total Protein 6.2 L Albumin 2.6 L Assessment and Plan (1) Alcohol use disorder: Status: Acute Plan 35M PMH alcohol dependence, HCV, decompensated liver cirrhosis, opiate dependence on methadone, obesity presented with fall Fall due to acute metabolic encephalopathy due to hepatic encephalopathy due to alcohol and HCV cirrhosis was Continue lactulose and rifaximin Goal of 2-4 bowel movements per day Monitor CIWA Continue vitamins reports stools, but likely overestimated as inconstently taking lacutlose and minimal clinical improvement Opiate dependence qt improved, can resume methadone Obesity Weight loss recommended DVT prophylaxis-mechanical due to chronic thrombocytopenia from cirrhosis Full code reason for continued hospitalization: Treatment of encephalopathy Quality Stroke Does the patient have a stroke diagnosis?: No VTE Prior VTE?: No VTE Risk Level:: Medical - moderate - high VTE Device Contraindication: Treatment Not Indicated VTE Drug Contraindication: N/A - Med Ordered
--- NOTE | 2025-06-10 15:15 | MHC.RECOVRN ---
Tw attempted to meet with pt in 452 to offer continued recovery support. On approach pt was laying in bed, eyes closed, in no apparent distress. Respirations even and unlabored. Tw allowed pt to continue to rest and is available for further questions or concerns as needed.
[2025-06-11 03:38] VITALS: BP 118/63; PULSE 53; RESP 16; TEMP 36.7; O2SAT 97
[2025-06-11 07:27] VITALS: BP 98/57; PULSE 70; RESP 19; TEMP 36.3; O2SAT 97
[2025-06-11 07:31] LABS: Ammonia 67 umol/L (13-55)
[2025-06-11 07:35] LABS: Hematocrit 36.4 % (42.0-52.0); Hemoglobin 12.6 g/dl (14.0-18.0); Mean Corpuscular HGB Conc 34.6 g/dl (31.0-36.0); Mean Corpuscular Hemoglobin 32.2 pg (27.0-33.0); Mean Corpuscular Volume 93.1 fL (80.0-98.0); NRBC Abs Auto 0.000 X10*3/uL (0.0-0.012); NRBC Pct Auto 0.0 /100WBC (0.0-0.2); Platelet Count 44 X10*3/uL (160-400); Red Blood Count 3.91 X10*6/uL (4.60-5.80); White Blood Count 3.3 X10*3/uL (4.8-10.8)
[2025-06-11 07:41] LABS: Alanine Aminotransferase 58 U/L (0-40); Albumin Level 2.6 g/dL (3.5-5.0); Alkaline Phosphatase 175 U/L (39-117); Anion Gap 10 (12-20); Aspartate Amino Transferase 149 U/L (5-37); Blood Urea Nitrogen 6 mg/dL (9-16); Calcium 8.3 mg/dL (8.4-10.2); Carbon Dioxide 28 mmol/L (22-29); Chloride 102 mmol/L (96-108); Creatinine Clr Calc Pharmacy 193.9; Estimated Glomerular Filt Rate > 60; Magnesium 1.5 mg/dL (1.6-2.6); Potassium 3.3 mmol/L (3.3-5.1); Sodium 137 mmol/L (135-145); Total Protein 6.2 g/dL (6.5-8.0)
[2025-06-11 09:01] VITALS: BP 107/55
[2025-06-11] MEDS: methADONE HCl 20 MG/2 ML ORAL.CONC 90 MG PO (09:09)
[2025-06-11] MEDS: Nicotine 21 MG PATCH.TD24 TRANSDERMA (09:10)
[2025-06-11] MEDS: 0.9 % Sodium Chloride Flush 3 ML SYRINGE IVFLUSH ×2 (09:11→15:52)
--- NOTE | 2025-06-11 09:48 | P.PNIM_ITS ---
Subjective Subjective Date of Service: 06/11/25 Interval History: has improved somewhat, but still shaky, sluggish Physical Exam 2 Exam: Exam: General: AO X 3, no acute distress, jaundiced, able to ambulate but sluggish and unsteady Resp: CTA bilateral, no accessory muscles used CVS: S1,S2,RRR GI: soft, non tender, non distended Neuro: motor grossly intact, alert, tremor Psych: appropriate affect, appropriate insight Vital Signs: Vital Signs: Last Vital Signs Temp 97.4 F 06/11/25 07:27 Pulse 70 06/11/25 07:27 Resp 19 06/11/25 07:27 BP 107/55 L 06/11/25 09:01 Pulse Ox 97 06/11/25 07:27 O2 Del Method Room Air 06/11/25 07:27 BMI result Body Mass Index 38.7 Objective Data Active Medications Acetaminophen (Acetaminophen 325 Mg Tablet) 325 mg PO Q6H PRN PRN Reason: Pain, Moderate(Pain Scale 4-6) Last Admin: 06/05/25 12:15 Dose: 325 mg Documented By: SILVIA Calcium Carbonate (Calcium Carbonate 750 Mg Tab.Chew) 750 mg PO Q4H PRN PRN Reason: Heartburn Clonidine HCl (Clonidine Hcl 0.1 Mg Tablet) 0.1 mg PO TID [facility]; Protocol Last Admin: 06/11/25 09:10 Dose: 0.1 mg Documented By: VALERIE Furosemide (Furosemide 40 Mg Tablet) 40 mg PO DAILY [facility]; Protocol Last Admin: 06/11/25 09:09 Dose: 40 mg Documented By: VALERIE Gabapentin (Gabapentin 400 Mg Capsule) 800 mg PO TID [facility] Last Admin: 06/11/25 09:10 Dose: 800 mg Documented By: VALERIE Lactulose (Lactulose 20 Gm/30 Ml Solution) 40 gm PO TID [facility] Last Admin: 06/11/25 09:11 Dose: 40 gm Documented By: VALERIE Lorazepam (Lorazepam 0.5 Mg Tablet) 0.5 mg PO Q4H PRN PRN Reason: Anxiety Last Admin: 06/11/25 01:32 Dose: 0.5 mg Documented By: RON Magnesium Hydroxide (Milk Of Magnesia 30 Ml Oral.Susp) 30 ml PO DAILY PRN PRN Reason: Constipation Magnesium Oxide (Magnesium Oxide 400 Mg Tablet) 400 mg PO DAILY [facility] Last Admin: 06/11/25 09:10 Dose: 400 mg Documented By: VALERIE Melatonin (Melatonin 3 Mg Tablet) 6 mg PO BEDTIME PRN PRN Reason: Insomnia Last Admin: 06/11/25 01:32 Dose: 6 mg Documented By: RON Methadone HCl (Methadone Hcl 20 Mg/2 Ml Oral.Conc) 90 mg PO DAILY@0800 [facility] Last Admin: 06/11/25 09:09 Dose: 90 mg Documented By: VALERIE Co-signed By: PORFIRIO Morphine Sulfate (Morphine Sulfate 2 Mg/Ml Cartridge) 2 mg IVPUSH Q6H PRN; Protocol PRN Reason: withdrawal Last Admin: 06/10/25 23:04 Dose: 2 mg Documented By: RON Nicotine (Nicotine 21 Mg Patch.Td24) 21 mg TRANSDERMA DAILY [facility] Last Admin: 06/11/25 09:10 Dose: 21 mg Documented By: VALERIE Rifaximin (Rifaximin 550 Mg Tablet) 550 mg PO BID [facility] Last Admin: 06/11/25 09:10 Dose: 550 mg Documented By: VALERIE Sertraline HCl (Sertraline Hcl 100 Mg Tablet) 100 mg PO DAILY [facility] Last Admin: 06/11/25 09:10 Dose: 100 mg Documented By: VALERIE Sodium Chloride (0.9 % Sodium Chloride Flush 3 Ml Syringe) [facility] Last Admin: 06/11/25 09:11 Dose: 3 ml Documented By: VALERIE Spironolactone (Spironolactone 25 Mg Tablet) 50 mg PO DAILY [facility]; Protocol Last Admin: 06/11/25 09:10 Dose: 50 mg Documented By: VALREIE Tamsulosin HCl (Tamsulosin Hcl 0.4 Mg Capsule) 0.4 mg PO DAILY [facility] Last Admin: 06/11/25 09:10 Dose: 0.4 mg Documented By: VALERIE Labs 06/11/25 07:16 06/11/25 07:16 Labs: Laboratory Results - last 24 hr 06/11/25 06/11/25 07:13 07:16 MCV 93.1 MCH 32.2 MCHC 34.6 RDW 13.4 Plt Count 44 L MPV 10.9 Absolute Nucleated RBC 0.000 Nucleated RBC % (auto) 0.0 Anion Gap 10 L Estim Creat Clear Calc 193.9 Estimated GFR > 60 Random Glucose 86 Calcium 8.3 L Magnesium 1.5 L Total Bilirubin 4.8 H Direct Bilirubin 3.2 H AST 149 H ALT 58 H Alkaline Phosphatase 175 H Ammonia 67 H Total Protein 6.2 L Albumin 2.6 L Assessment and Plan (1) Alcohol use disorder: Status: Acute Plan 35M PMH alcohol dependence, HCV, decompensated liver cirrhosis, opiate dependence on methadone, obesity presented with fall Fall due to acute metabolic encephalopathy due to hepatic encephalopathy due to alcohol and HCV cirrhosis was Continue lactulose and rifaximin Goal of 2-4 bowel movements per day Monitor CIWA Continue vitamins Opiate dependence qt improved, can resume methadone Obesity Weight loss recommended DVT prophylaxis-mechanical due to chronic thrombocytopenia from cirrhosis Full code reason for continued hospitalization: Treatment of encephalopathy Quality Stroke Does the patient have a stroke diagnosis?: No VTE Prior VTE?: No VTE Risk Level:: Medical - moderate - high VTE Device Contraindication: Treatment Not Indicated VTE Drug Contraindication: N/A - Med Ordered
[2025-06-11 11:41] VITALS: BP 97/56; PULSE 64; RESP 18; TEMP 36.5; O2SAT 95
[2025-06-11 14:49] VITALS: BP 106/62; PULSE 68; RESP 20; TEMP 36.2; O2SAT 96
[2025-06-11 20:00] VITALS: BP 113/61; PULSE 65; RESP 16; TEMP 36.7; O2SAT 97
[2025-06-12] VITALS (7 sets, daily range): BP systolic 105–133; BP diastolic 57–73; PULSE 64–72; RESP 18–20; TEMP 36.2–36.7; O2SAT 94–98
[2025-06-12 07:02] LABS: Hematocrit 36.5 % (42.0-52.0); Hemoglobin 12.8 g/dl (14.0-18.0); Mean Corpuscular HGB Conc 35.1 g/dl (31.0-36.0); Mean Corpuscular Hemoglobin 32.5 pg (27.0-33.0); Mean Corpuscular Volume 92.6 fL (80.0-98.0); NRBC Abs Auto 0.000 X10*3/uL (0.0-0.012); NRBC Pct Auto 0.0 /100WBC (0.0-0.2); Platelet Count 47 X10*3/uL (160-400); Red Blood Count 3.94 X10*6/uL (4.60-5.80); White Blood Count 3.5 X10*3/uL (4.8-10.8)
[2025-06-12 07:13] LABS: Ammonia 131 umol/L (13-55)
[2025-06-12 07:24] LABS: Alanine Aminotransferase 66 U/L (0-40); Albumin Level 2.7 g/dL (3.5-5.0); Alkaline Phosphatase 187 U/L (39-117); Anion Gap 9 (12-20); Aspartate Amino Transferase 164 U/L (5-37); Blood Urea Nitrogen 7 mg/dL (9-16); Calcium 8.3 mg/dL (8.4-10.2); Carbon Dioxide 29 mmol/L (22-29); Chloride 103 mmol/L (96-108); Creatinine Clr Calc Pharmacy 176.3; Estimated Glomerular Filt Rate > 60; Magnesium 1.5 mg/dL (1.6-2.6); Potassium 3.1 mmol/L (3.3-5.1); Sodium 138 mmol/L (135-145); Total Protein 6.8 g/dL (6.5-8.0)
[2025-06-12] MEDS: methADONE HCl 20 MG/2 ML ORAL.CONC 90 MG PO (07:50)
[2025-06-12] MEDS: Nicotine 21 MG PATCH.TD24 TRANSDERMA (07:56)
[2025-06-12] MEDS: 0.9 % Sodium Chloride Flush 3 ML SYRINGE IVFLUSH ×3 (07:57→21:32)
[2025-06-12] MEDS: Potassium Chloride ER 20 MEQ TAB.ER.PRT PO (09:34)
--- NOTE | 2025-06-12 11:03 | MHC.CM.PN ---
Per ROUNDS discussion, Patient is not yet medically cleared for dc (elevated Ammonia); home is the goal and CM will continue to follow.
--- NOTE | 2025-06-12 17:27 | HO.PM.IMPN ---
Subjective Subjective Date of Service: 06/12/25 Interval History: encephalopathy Review of Systems Patient mental status slowly improving, but still somewhat drowsy Review of Systems: Yes all other systems are reviewed and are negative Physical Exam Exam: Exam: Appearance:awake,alert ,somewhat drowsy. cvs: rrr, [id number] . res: clear to auscultation ,no rhonchii or wheezing abd: no rebound or guarding ,nt, bs present. ext pulses present , no cyanosis . neuro: nonfocal. Vital Signs: Vital Signs: Last Vital Signs Temp 97.5 F 06/12/25 15:06 Pulse 72 06/12/25 15:06 Resp 18 06/12/25 15:06 BP 109/62 06/12/25 15:06 Pulse Ox 95 06/12/25 15:06 O2 Del Method Room Air 06/12/25 15:06 BMI result Body Mass Index 38.7 Objective Data Active Medications Acetaminophen (Acetaminophen 325 Mg Tablet) 325 mg PO Q6H PRN PRN Reason: Pain, Moderate(Pain Scale 4-6) Last Admin: 06/05/25 12:15 Dose: 325 mg Documented By: SILVIA Calcium Carbonate (Calcium Carbonate 750 Mg Tab.Chew) 750 mg PO Q4H PRN PRN Reason: Heartburn Clonidine HCl (Clonidine Hcl 0.1 Mg Tablet) 0.1 mg PO TID [facility]; Protocol Last Admin: 06/12/25 16:07 Dose: 0.1 mg Documented By: VALERIE Furosemide (Furosemide 40 Mg Tablet) 40 mg PO DAILY [facility]; Protocol Last Admin: 06/12/25 07:54 Dose: 40 mg Documented By: VALERIE Gabapentin (Gabapentin 400 Mg Capsule) 800 mg PO TID [facility] Last Admin: 06/12/25 16:07 Dose: 800 mg Documented By: VALERIE Lactulose (Lactulose 20 Gm/30 Ml Solution) 40 gm PO TID [facility] Last Admin: 06/12/25 16:08 Dose: 40 gm Documented By: VALERIE Lorazepam (Lorazepam 0.5 Mg Tablet) 0.5 mg PO Q4H PRN PRN Reason: Anxiety Last Admin: 06/12/25 14:07 Dose: 0.5 mg Documented By: VALERIE Magnesium Hydroxide (Milk Of Magnesia 30 Ml Oral.Susp) 30 ml PO DAILY PRN PRN Reason: Constipation Magnesium Oxide (Magnesium Oxide 400 Mg Tablet) 400 mg PO DAILY [facility] Last Admin: 06/12/25 07:55 Dose: 400 mg Documented By: VALERIE Melatonin (Melatonin 3 Mg Tablet) 6 mg PO BEDTIME PRN PRN Reason: Insomnia Last Admin: 06/11/25 01:32 Dose: 6 mg Documented By: RON Methadone HCl (Methadone Hcl 20 Mg/2 Ml Oral.Conc) 90 mg PO DAILY@0800 [facility] Last Admin: 06/12/25 07:50 Dose: 90 mg Documented By: VALERIE Co-signed By: PORFIRIO Nicotine (Nicotine 21 Mg Patch.Td24) 21 mg TRANSDERMA DAILY [facility] Last Admin: 06/12/25 07:56 Dose: 21 mg Documented By: VALERIE Rifaximin (Rifaximin 550 Mg Tablet) 550 mg PO BID [facility] Last Admin: 06/12/25 07:54 Dose: 550 mg Documented By: VALREIE Sertraline HCl (Sertraline Hcl 100 Mg Tablet) 100 mg PO DAILY [facility] Last Admin: 06/12/25 07:55 Dose: 100 mg Documented By: VALERIE Sodium Chloride (0.9 % Sodium Chloride Flush 3 Ml Syringe) [facility] Last Admin: 06/12/25 16:08 Dose: 3 ml Documented By: VALERIE Spironolactone (Spironolactone 25 Mg Tablet) 50 mg PO DAILY [facility]; Protocol Last Admin: 06/12/25 07:55 Dose: 50 mg Documented By: VALERIE Tamsulosin HCl (Tamsulosin Hcl 0.4 Mg Capsule) 0.4 mg PO DAILY [facility] Last Admin: 06/12/25 07:53 Dose: 0.4 mg Documented By: VALERIE Labs 06/12/25 06:53 06/12/25 06:53 Labs: Laboratory Results - last 24 hr 06/12/25 06:53 MCV 92.6 MCH 32.5 MCHC 35.1 RDW 13.3 Plt Count 47 L MPV 10.1 Absolute Nucleated RBC 0.000 Nucleated RBC % (auto) 0.0 Anion Gap 9 L Estim Creat Clear Calc 176.3 Estimated GFR > 60 Random Glucose 104 Calcium 8.3 L Magnesium 1.5 L Total Bilirubin 4.5 H Direct Bilirubin 3.2 H AST 164 H ALT 66 H Alkaline Phosphatase 187 H Ammonia 131 H Total Protein 6.8 Albumin 2.7 L Assessment and Plan (1) Alcohol use disorder: Status: Acute Plan 35M PMH alcohol dependence, HCV, decompensated liver cirrhosis, opiate dependence on methadone, obesity presented with fall Fall due to acute metabolic encephalopathy due to hepatic encephalopathy due to alcohol and HCV cirrhosis was lft's similar ,ammonia levels increasing Continue lactulose and rifaximin( complance advised ,patient is intermitently not taking lactulose). Goal of 2-4 bowel movements per day Monitor CIWA Continue vitamins acute hypokalemia : added po potassium Opiate dependence qt improved, can resume methadone Obesity Weight loss recommended DVT prophylaxis-mechanical due to chronic thrombocytopenia from cirrhosis Full code reason for continued hospitalization: Treatment of encephalopathy Quality Stroke Does the patient have a stroke diagnosis?: No VTE Prior VTE?: No VTE Risk Level:: Medical - moderate - high VTE Device Contraindication: Treatment Not Indicated VTE Drug Contraindication: N/A - Med Ordered
[2025-06-13 00:11] VITALS: PULSE 65; RESP 16
[2025-06-13 04:00] VITALS: BP 106/57; PULSE 63; RESP 20; TEMP 36.4; O2SAT 96
[2025-06-13 08:00] VITALS: BP 110/63; PULSE 61; RESP 18; TEMP 36.4; O2SAT 98
[2025-06-13 09:05] LABS: Ammonia 110 umol/L (13-55)
[2025-06-13 09:10] VITALS: BP 109/60
[2025-06-13 09:11] LABS: Anion Gap 9 (12-20); Blood Urea Nitrogen 7 mg/dL (9-16); Calcium 8.3 mg/dL (8.4-10.2); Carbon Dioxide 30 mmol/L (22-29); Chloride 104 mmol/L (96-108); Creatinine Clr Calc Pharmacy 181.8; Estimated Glomerular Filt Rate > 60; Potassium 3.3 mmol/L (3.3-5.1); Sodium 140 mmol/L (135-145)
[2025-06-13] MEDS: Nicotine 21 MG PATCH.TD24 TRANSDERMA (09:11)
[2025-06-13] MEDS: 0.9 % Sodium Chloride Flush 3 ML SYRINGE IVFLUSH (09:11)
[2025-06-13] MEDS: methADONE HCl 20 MG/2 ML ORAL.CONC 90 MG PO (09:11)
[2025-06-13 11:31] VITALS: BP 100/61; PULSE 66; RESP 18; TEMP 36.6; O2SAT 100
--- NOTE | 2025-06-13 12:17 | MHC.CM.PN ---
Patient has been medically cleared for dc to home today, self care.
[2025-06-13 13:54] VITALS: BP 100/61; PULSE 66; O2SAT 100
--- NOTE | 2025-06-13 14:25 | PM.DS ---
DS: Providers Provider Date of Service: 06/13/25 Date of admission: 06/05/25 03:21 Date of discharge: 06/13/25 Primary care physician: Stephen Biggs MD Consults: 06/05/25 03:20 Addiction Medicine Provider Routine Consulting Provider: Addiction Covering Reason for consultation: opiate dependence on methadone Attending physician on discharge: Seth Lucero Discharging clinician: Seth Lucero DS: Diagnosis Discharge Diagnosis (1) Alcohol use disorder: Status: Acute DS: Summary Hospital Course Hospital Course: HPI:35-year-old male with a past medical history of hep C, liver cirrhosis, history of hepatic encephalopathy, opiate dependence on methadone, obesity, alcohol use disorder; presented to the hospital today with a chief complaint of fall. Patient mentioned that he followed up the stairs. Denies any head strike or loss of consciousness. Reports pain on his right side of his lower chest wall. Denies any nausea vomiting or diarrhea. Mentions he has been noncompliant with his lactulose. Denies any signs of bleeding. Patient mentioned that he has been drinking alcohol about a pt every day. Last drink was earlier in the day. Review of all other systems is limited. ER course: Per ER team, patient on presentation has been on musculoskeletal examination except right lower tenderness; CT head, C-spine, CT chest abdomen pelvis showed no acute findings. Patient was slow to respond; ammonia level elevated to 121. Concern for possible hepatic encephalopathy. Hospital course: 35M PMH alcohol dependence, HCV, decompensated liver cirrhosis, opiate dependence on methadone, obesity presented with fall Fall due to acute metabolic encephalopathy due to hepatic encephalopathy due to alcohol and HCV cirrhosis was lft's similar ,ammonia levels improving Continue lactulose and rifaximin-compliance with home medication discussed in detail. Goal of 2-4 bowel movements per day Patient is ambulating fine, seen by PT-no acute PT need, patient is ambulating fine. Pancytopenia seems chronic: Monitor CBC outpatient acute hypokalemia : Replaced and resolved. Opiate dependence qt improved, can resume methadone Obesity Weight loss recommended. Plan:Continue lactulose, can not treated properly outpatient. Patient treated with lactulose, mental status improved to the baseline. Patient was strongly advised for compliance with lactulose and home medications. Also told him monitor the goal of bowel movement is 3 BMs a day. Hypokalemia repleted and resolved. Limited potassium supply given, monitor BMP outpatient with PCP. Monitor CBC and BMP outpatient. Consider outpatient GI follow-up per PCP. Above management discussed with the patient in detail length he understand and in agreement with the above plan, time spent 45 minute. All questions answered. Staff was present during conversation. Time Attestation Total time managing care of this patient today: 45 mintues. Discharge Coordination Time (in mins): 45 min Quality: Safe Use of Opioids Does Pt have an Active Cancer Diagnosis on the Problem List?: No Quality: Stroke Does the patient have a stroke diagnosis?: No Physical Exam Exam: Exam: Appearance:awake,alert ,somewhat drowsy. cvs: rrr, [id number] . res: clear to auscultation ,no rhonchii or wheezing abd: no rebound or guarding ,nt, bs present. ext pulses present , no cyanosis . neuro: nonfocal. Vital Signs: Vital Signs: Last Vital Signs Temp 97.8 F 06/13/25 11:31 Pulse 66 06/13/25 13:54 Resp 18 06/13/25 11:31 BP 100/61 06/13/25 13:54 Pulse Ox 100 06/13/25 13:54 O2 Del Method Room Air 06/13/25 11:31 BMI result Body Mass Index 38.7 DS: Data Data Completed and Pending Completed studies during hospitalization [Text1]: Procedures Detoxification Services for Substance Abuse Treatment (12/13/24) Labs on day of discharge: Laboratory Results - last 24 hr 06/13/25 08:44 Sodium 140 Potassium 3.3 Chloride 104 Carbon Dioxide 30 H Anion Gap 9 L BUN 7 L Creatinine 0.64 Estim Creat Clear Calc 181.8 Estimated GFR > 60 Random Glucose 82 Calcium 8.3 L Ammonia 110 H Imaging Chest x-ray: My impression: ct haed and cspine: 1. No acute intracranial findings. C spine ct: No acute findings. Discharge Plan Discharge Anticipated Discharge Date/Time: 06/05/25 13:06 Patient Disposition: Home, Self-Care Discharge Diagnosis: Hepatic encephalopathy Referrals: Physician,Unknown J [Physician, Medical] - 1 Week Discharge Medications: New potassium chloride 8 mEq capsule, extended release 8 meq PO DAILY Qty: 3 0RF Continued furosemide 40 mg tablet 40 mg PO DAILY 90 Days Qty: 90 1RF methadone 10 mg/mL Concentrate 90 mg PO DAILY Rx Instructions: MAU DUNCAN [phone] clonidine HCl 0.1 mg tablet 0.1 mg PO TID sertraline 100 mg tablet 100 mg PO DAILY thiamine HCl (vitamin B1) 100 mg tablet 200 mg PO DAILY gabapentin 800 mg tablet 800 mg PO TID spironolactone 50 mg tablet 50 mg PO DAILY lorazepam 0.5 mg tablet 0.5 mg PO BID PRN (Reason: Anxiety) magnesium oxide 400 mg (241.3 mg magnesium) tablet 400 mg PO DAILY tamsulosin 0.4 mg capsule 0.4 mg PO DAILY melatonin 5 mg Tablet 5 - 10 mg PO BEDTIME PRN (Reason: Sleep) Xifaxan 550 mg Tablet 550 mg PO BID Qty: 60 0RF nicotine 21 mg/24 hr patch 24 hour 1 patch topical DAILY PRN (Reason: Smoking Cessation) lactulose 10 gram/15 mL solution 60 ml PO TID Discharge Orders: Discharge Order (Routine); Ordered 06/13/25 Ordered By: Seth Lucero Diet: Advance to usual diet Activity on Discharge: As tolerated Stand Alone Forms: Patient Portal Discharge page Print Language: Setswana Other Ambulatory Orders: Complete Blood Count no Diff (Routine) Timeframe: 1 Week Facility: [facility] - Location: Laboratory Ordered By: Seth Lucero Comprehensive Met. Panel (Routine) Timeframe: 1 Week Facility: [facility] - Location: Laboratory Ordered By: Seth Lucero Care Plan Goals: [facility] Concerns: Hepatic encephalopathy Plan of Treatment: Continue lactulose, can not treated properly outpatient. Patient treated with lactulose, mental status improved to the baseline. Patient was strongly advised for compliance with lactulose and home medications. Also told him monitor the goal of bowel movement is 3 BMs a day. Hypokalemia repleted and resolved. Limited potassium supply given, monitor BMP outpatient with PCP. Consider outpatient GI follow-up per PCP. Assessment: follow up with pcp outpatient. Discharge Date/Time: 06/13/25 16:20
== END 2025-06-13 16:20 | disposition home or self-care (01) | DRG 280 ==
LOC: HO.ED 06-05 03:35 → HO.EDOVER 06-05 03:36 → HO.IMC 06-05 04:22
PROVIDERS: Internal Medicine; Physician Assistant; Admitting Provider Hospitalist; Emergency Provider Emergency Medicine; PCP Internal Medicine; Visit Provider Internal Medicine
DX: K70.30 Alcoholic cirrhosis of liver without ascites (principal); G93.41 Metabolic encephalopathy; D61.818 Other pancytopenia; K76.82 Hepatic encephalopathy; F10.20 Alcohol dependence, uncomplicated; F17.210 Nicotine dependence, cigarettes, uncomplicated; Y90.3 Blood alcohol level of 60-79 mg/100 ml; E87.6 Hypokalemia; Z71.6 Tobacco abuse counseling; E66.9 Obesity, unspecified; Z68.38 Body mass index [BMI] 38.0-38.9, adult; Z71.3 Dietary counseling and surveillance; Z91.148 Patient's other noncompliance with medication regimen for other reason; Z86.19 Personal history of other infectious and parasitic diseases; Z79.899 Other long term (current) drug therapy
CPT/HCPCS: 36415; 70450; 71250; 72125; 74176; 80048; 80053; 80076; 80307; 81001; 81003; 82140; 83735; 84484; 85025; 85027; 85610; 85730; 93005; 97161; 99285; J1171; J2270; J2405; S9485

== ENCOUNTER → 2025-06-04 20:26 | Outpatient (BNV) | payer OTHER, SELFPAY | PROVIDERS: Visit Provider Student in an Organized Health Care Education/Training Program | DX: R10.11 Right upper quadrant pain (principal); R07.89 Other chest pain; W19.XXXA Unspecified fall, initial encounter; K74.60 Unspecified cirrhosis of liver; Z04.3 Encounter for examination and observation following other accident | CPT/HCPCS: 70450; 71250; 72125; 74176 ==

== ENCOUNTER → 2025-06-04 20:48 | Outpatient (BNV) | payer OTHER, SELFPAY | PROVIDERS: Admitting Provider Hospitalist; Emergency Provider Emergency Medicine; PCP Internal Medicine; Visit Provider Internal Medicine | DX: R94.31 Abnormal electrocardiogram [ECG] [EKG] (principal); R10.11 Right upper quadrant pain | CPT/HCPCS: 93010 ==

== ENCOUNTER 2025-06-05 03:21 | Outpatient (BNV) | payer OTHER, SELFPAY | END 2025-06-06 08:50 | PROVIDERS: Admitting Provider Hospitalist; Emergency Provider Emergency Medicine; PCP Internal Medicine; Visit Provider Internal Medicine | DX: Z13.6 Encounter for screening for cardiovascular disorders (principal) | CPT/HCPCS: 93010 ==

== ENCOUNTER 2025-06-05 03:21 | Outpatient (BNV) | payer OTHER, SELFPAY | END 2025-06-07 07:38 | PROVIDERS: Admitting Provider Hospitalist; Emergency Provider Emergency Medicine; PCP Internal Medicine; Visit Provider Internal Medicine | DX: R94.31 Abnormal electrocardiogram [ECG] [EKG] (principal) | CPT/HCPCS: 93010 ==

== ENCOUNTER → 2025-06-05 03:21 | Outpatient (BNV) | payer OTHER, SELFPAY | PROVIDERS: Admitting Provider Hospitalist; Emergency Provider Emergency Medicine; PCP Internal Medicine; Visit Provider Nurse Practitioner Psychiatric/Mental Health | DX: F10.90 Alcohol use, unspecified, uncomplicated (principal) | CPT/HCPCS: 99222 ==

== ENCOUNTER → 2025-06-05 03:21 | Outpatient (BNV) | payer OTHER, SELFPAY | PROVIDERS: Admitting Provider Hospitalist; Emergency Provider Emergency Medicine; Visit Provider Internal Medicine | DX: F10.90 Alcohol use, unspecified, uncomplicated (principal) | CPT/HCPCS: 99222; 99499 ==

== ENCOUNTER 2025-07-03 04:16 | Inpatient (IN) | payer OTHER, SELFPAY ==
[2025-07-03] VITALS (7 sets, daily range): BP systolic 103–145; BP diastolic 53–78; PULSE 60–82; RESP 16–20; TEMP 36.2–37; O2SAT 95–100; BMI 22.4; BMI 38.5
--- NOTE | ~2025-07-03 | XR_ITS ---
EXAMINATION: XR CHEST CLINICAL INFORMATION: Mental status change COMPARISON: CT chest 06/04/2025. TECHNIQUE: AP view of the chest was obtained. FINDINGS: Projection is apical lordotic. Cardiac silhouette is prominent but may be magnified by the AP technique. Mediastinal and hilar contours appear normal. The lungs appear clear bilaterally. No pneumothorax or effusion. No focal osseous or soft tissue abnormality. XR/XR chest 1V IMPRESSION: No active pulmonary disease. Electronically signed by: Maximino Christianson MD 07/03/2025 08:15 AM EDT
--- OUTSIDE RECORDS SUMMARY | 2025-07-03 04:49 | XMS_ITS | Clinical Summary ---
Author Organization [facility] Address [address] [place] [address] Care Team Providers Care Manager Ob Name Role Phone Ref, Has No Pcp Or Primary Care Provider Unavail able Allergies Active Allergy Reactions Criticality Noted Date [...] and Ativan from streets. Received records from [facility] in [place] where he was admitted for detox 07/2015: Court ordered treatment, had felony charges for drugs. Reportedly he used suboxone in the past but was selling mostly?. He was treated in detox with protocol( also including Hydroxyzine, clonidine, keppra prophylaxis, Remeron, Trazodone prn, Subutex) Encounters Date Type Department Care Team Description 05/02/2025 Telephone [facility] [address] [place] [id number] Chinyere Baxter MD from Last 3 [...] series) 08/06/2004 06/11/2004, 04/16/2003 Pneumococcal Vaccine: Pediat karlnee (0-5 Years) and At-Risk Patients (6-50 Years) (1 of 2 - PCV) 2010 DTaP,Tdap,and Td Vaccines (6 - Td or Tdap) 06/01/2017 06/01/2007, 04/16/2003, 06/03/1996, Additional history exists Alcohol/Substance Use Screening 10/10/2024 Depression Screening and Follow-Up 10/10/2024 Social Drivers of Health Melonie ual Screening 10/10/2024 COVID-19 Vaccine (2 - 2024-2 6 season) 2025 03/11/2021 Influenza Vaccine (#1) 2025 , 06/24/2020, 07/10/2019, Additional history exists RSV Vaccine (60+ years old a nd patients) (1 - 1-dose 75+ series) 2066 Hepatitis C Screening Completed 07/10/2024 , 07/02/2024, 06/21/2024 Insurance [facility] MEDICAID Advance Directives Documents on File Type Date Recorded Patient Head Worker Expl anation Health Care Proxy 02/08/2024 5:53 PM 2023 * Full Code (Latest Code Status on File) Date Activated Date Inactivated Comments 01/23/2024 5:59 PM 02/16/2024 7:48 PM Healthcare Agents on File Name Relationship Healthcare Agent Relationshi p Communication Rney Nicholas Mother Health Care Agent Care Teams Manager Ob Relationship Specialty Start Date End Date Ref, Has No Pcp Or DO NOT EDIT THIS RECORD VIA PROVIDER ON THE FLY PCP - General Criminal Justice Department Chair 02/21/23
--- OUTSIDE RECORDS SUMMARY | 2025-07-03 04:49 | XMS_ITS | Clinical Summary ---
Author Organization [facility] Address [address] [place] [address] Phone Care Team Providers Care Jacquard Card Lacer Name Role Phone Kim Lemus MD Primary Care Provider [phone] Allergies Active Allergy Reactions Criticality Noted Date [...] Noted Date Diagnosed Date Acute hepatic encephalopathy ([facility]/HCC V24, [facility]/ CC V28) 02/25/2025 Hepatic encephalopathy (CMS/HCC [...] use disorder, severe , dependence (CMS/HCC V24, [facility] V28) Severe benzodiazepine use di sorder ([facility] V24, [facility] V28) Opioid dependence on agonist therapy ([facility] V24, [facility] V28) Depression Anxiety Family History Medical [...] your loved ones. For example, child welfare assistant or elderly care for an older adult? [...] Screening (Lipid Panel) 09/08/2022 HIV Screening 09/08/2022 Depression Screening 10/10/2024 COVID-19 Vaccine ( season) 2025 03/11/2021 Influenza Vaccine (#1) 2025 [...] patient's age to complete this topic Insurance [facility] PUBLIC PLANS [place] [id number] Advance Directives * Full Code - Default [...] currently active code status orders. Care Teams Jacquard Card Lacer Relationship Specialty Start Date End Date Kim Lemus MD [address] [place], [place] [id number] PCP - General Internal Medicine 05/11/19
--- NOTE | 2025-07-03 06:13 | ED.GENADULT ---
HPI - General Adult General Chief complaint: Recheck/Abnormal Lab/Rx Stated complaint: multi complaints Time Seen by Provider: 07/03/25 06:08 Source: patient Mode of arrival: ambulatory Limitations: no limitations History of Present Illness ED Provider: DR. Zamarripa HPI narrative: 35-year-old male pertinent PMHx hep C, liver cirrhosis, hepatic encephalopathy, opiate dependence on methadone, obesity, alcohol use disorder patient was recently hospitalized for hepatic encephalopathy and was discharged on lactulose returned back today for feeling dizzy, disoriented and confused having use lactulose for the last 2 weeks. Related Data Home Medications ?Medication ?Instructions ?Recorded ?Confirmed methadone 10 mg/mL oral concentrate 90 mg PO DAILY 03/03/24 06/05/25 clonidine HCl 0.1 mg tablet 0.1 mg PO TID 12/13/24 06/05/25 gabapentin 800 mg tablet 800 mg PO TID 12/13/24 06/05/25 sertraline 100 mg tablet 100 mg PO DAILY 12/13/24 06/05/25 thiamine HCl (vitamin B1) 100 mg 200 mg PO DAILY 12/13/24 06/05/25 tablet magnesium oxide 400 mg (241.3 mg 400 mg PO DAILY 02/12/25 06/05/25 magnesium) tablet melatonin 5 mg tablet 5 - 10 mg PO BEDTIME PRN Sleep 02/12/25 06/05/25 tamsulosin 0.4 mg capsule 0.4 mg PO DAILY 02/12/25 06/05/25 lactulose 10 gram/15 mL oral 60 ml PO TID 03/28/25 06/05/25 solution nicotine 21 mg/24 hr daily 1 patch topical DAILY PRN Smoking 04/30/25 06/05/25 transdermal patch Cessation spironolactone 50 mg tablet 50 mg PO DAILY 05/23/25 06/05/25 lorazepam 0.5 mg tablet 0.5 mg PO BID PRN Anxiety 06/05/25 06/05/25 Previous Rx's ?Medication ?Instructions ?Recorded rifaximin 550 mg tablet (Xifaxan) 550 mg PO BID #60 tabs 02/15/25 furosemide 40 mg tablet 40 mg PO DAILY 90 days #90 tabs 04/04/25 potassium chloride 8 mEq 8 meq PO DAILY #3 caps 06/13/25 capsule,extended release Allergies Allergy/AdvReac Type Severity Reaction Status Date / Time fish derived (fish) Allergy Anaphylaxis Verified 07/03/25 04:24 shellfish derived Allergy Anaphylaxis Verified 07/03/25 04:24 Pork/Porcine Containing AdvReac Gastrointestinal Verified 07/03/25 04:24 Products Upset Review of Systems Review of Systems: All other systems are reviewed and are negative Constitutional: Reports as per HPI and Reports no additional constitutional complaints Eyes: Reports as per HPI and Reports no additional eye complaints Reports system reviewed and no additional complaints, except as documented Cardiovascular: Reports as per HPI and Reports no additional cardiovascular complaints Respiratory: Reports as per HPI and Reports no additional respiratory complaints Gastrointestinal: Reports as per HPI and Reports no additional gastrointestinal complaints Genitourinary: Reports no additional female genitourinary complaints Musculoskeletal: Reports no additional musculoskeletal complaints Skin/Breast: Reports system reviewed and no additional complaints, except as docu Psychiatric: Reports no additional psychiatric complaints Endocrine: Reports no additional endocrine complaints Hematologic/Lymphatic: Reports no additional hematologic/lymphatic complaints Allergic/Immunologic: Reports no additional allergic/immunologic complaints Reports system reviewed and no additional complaints, except as documented and Reports Abnormal speech present PENDING SALE TO [facility] Past Medical History Medical History Multiple falls Chronic constipation Methadone maintenance therapy patient Alcohol use disorder, severe, dependence Liver failure Alcoholic cirrhosis of liver with ascites Cirrhosis Cirrhosis Edema Alcohol abuse Increased ammonia level Substance abuse Opiate use Social History Social History Household Members: Other Household Members Other:: Brother Housing: House Do you presently have visiting nurse or other home services: No Alcohol intake: current Alcohol intake frequency: 3 or more drinks per day Alcohol type: hard liquor Comment: Pt refusing assistance and alarms Patient Tobacco Use Status: Current everyday Tobacco user Tobacco use type: Cigarette and Smokeless Tobacco Cigarette Packs Per Day: 1 Cigarettes Per Day: 20.0 Smoked in Last 30 Days: Yes e-Cigarette/Vaping Use: Currently Using Use of substances other than those prescribed or required for medical reasons: No Advance Directives: Yes Advance Directives on File: Yes Advance Directives Date on File: 02/18/25 Do you have a plan to hurt others: No Plan service: No Physical Exam ED Vital Signs: Vital Signs - 24 hr 07/03/25 04:21 09/24/25 06:27 Temperature 97.8 F 98.5 F Pulse Rate 82 69 Respiratory Rate 20 16 Blood Pressure 131/67 103/53 L Pulse Oximetry 95 98 Oxygen Delivery Method Room Air Room Air BMI result Body Mass Index 22.4 Vital signs have been reviewed and appear to be correct. Blood pressure elevated. Heart rate normal. Respiratory rate normal. Temperature normal. Oxygen saturation normal. Appearance: Alert. Oriented X3. No acute distress. Head: Normal external exam. Normocephalic. Atraumatic. No Holt signs noted. No raccoon eyes noted Eyes: PERRLA. EOMI. Conjunctiva and sclera normal. Eyelids normal. ENT: TM's Normal. Pharynx normal. Uvula midline. Moist mucous membranes. No trismus noted. No drooling noted. No muffled voice noted. Neck: Normal inspection. Neck supple. FROM. No adenopathy. Thyroid Normal. No meningeal signs. No neck mass noted. CVS: Normal heart rate and rhythm. Heart sound normal. No murmurs noted. Pulses normal throughout. Respiratory: No respiratory distress. Painless inspiration. Breath sounds normal. No wheezes/rales/rhonchi noted. Chest nontender. No accessory muscle usage noted or decreased air movement noted. Abdomen: Soft and nontender. Bowel sounds normal in all 4 quadrants. No distention noted. No organomegaly noted. No visible injury noted. Back: No CVA tenderness. Full range of motion noted. Skin: Skin warm and dry. Normal skin color. Normal skin turgor. No rashes/lesions/lacerations noted. Extremities: No lower extremity edema. Extremities exhibit normal range of motion. Extremities nontender. Neuro: Oriented X 3. Cranial nerve exam: II-XII are grossly intact No motor deficit. No sensory deficit. Reflexes normal. Course Reevaluation(s) Reevaluation #1: Feeling disoriented and confused likely secondary to hyperammonemia. Administer lactulose in the ED and admit to the hospital. Afebrile, no abdominal pain SBP is not likely. Time: 07:21 Medications Administered Discontinued Medications Generic Name Dose Route Start Last Admin Trade Name Freq PRN Reason Stop Dose Admin Lactulose 30 gm 07/03/25 06:18 07/03/25 06:29 Lactulose 20 Gm/30 Ml Solution PO 07/03/25 06:19 30 gm ONCE ONE Administration Oxycodone HCl 5 mg 07/03/25 06:19 07/03/25 06:29 Oxycodone Hcl Immed Release 5 Mg Tablet PO 07/03/25 06:20 5 mg ONCE ONE Administration Medical Decision Making Differential Diagnosis Differential Diagnoses: The differential diagnosis associated with the presentation includes (Mental status change, hyperammonemia, electrolyte derangement, severe anemia, pneumonia, pneumothorax.) Admission/Observation Consideration of admission/observation: Escalation of care including admission/observation considered Lab Data MDM Lab Attestation statement: I reviewed the patient's lab results. 07/03/25 06:11 07/03/25 06:11 Labs: Lab Results 07/03/25 Range/Units 06:11 WBC 2.3 L (4.8-10.8) X10*3/uL RBC 3.57 L (4.60-5.80) X10*6/uL Hgb 11.5 L (14.0-18.0) g/dl Hct 32.7 L (42.0-52.0) % MCV 91.6 (80.0-98.0) fL MCH 32.2 (27.0-33.0) pg MCHC 35.2 (31.0-36.0) g/dl RDW 15.2 (11.0-16.0) % Plt Count 49 L (160-400) X10*3/uL MPV 10.2 (9.4-12.4) fL Immature Gran % (Auto) 0.0 (0.0-0.4) % Neut % (Auto) 47.0 (45-73) % Lymph % (Auto) 44.7 H (20-40) % [place] % (Auto) 6.6 (2-11) % Eos % (Auto) 1.3 (0-4) % Baso % (Auto) 0.4 (0-2) % Lymph # (Auto) 1.0 L (1.2-4.9) X10*3/uL [place] # (Auto) 0.2 (0.1-1.2) X10*3/uL Eos # (Auto) 0.0 (0.0-0.4) X10*3/uL Baso # (Auto) 0.0 (0.0-0.2) X10*3/uL Abs Immat Gran (auto) 0.00 (0.00-0.03) X10*3/uL Absolute Neuts (auto) 1.1 L (2.0-8.3) x10*3/uL Absolute Nucleated RBC 0.000 (0.0-0.012) X10*3/uL Nucleated RBC % (auto) 0.0 (0.0-0.2) /100WBC Sodium 138 (135-145) mmol/L Potassium 4.1 D (3.3-5.1) mmol/L Chloride 108 (96-108) mmol/L Carbon Dioxide 26 (22-29) mmol/L Anion Gap 8 L (12-20) BUN 7 L (9-16) mg/dL Creatinine 0.60 (0.5-1.4) mg/dL Estim Creat Clear Calc 150.1 Estimated GFR > 60 Random Glucose 109 (60-115) mg/dL Calcium 8.4 (8.4-10.2) mg/dL Total Bilirubin 6.6 H (0.0-1.0) mg/dL AST 166 H (5-37) U/L ALT 69 H (0-40) U/L Alkaline Phosphatase 208 H (39-117) U/L Ammonia 104 H (13-55) umol/L Total Protein 6.2 L (6.5-8.0) g/dL Albumin 2.5 L (3.5-5.0) g/dL Independent Interpretation I performed an independent interpretation of an: Plain X-Ray (Chest: No acute intrathoracic pathology) Radiology Impression Discussion of test interpretation with radiology: I have reviewed the radiologist's reading. Discharge Plan Discharge Clinical Impression: Acute hepatic encephalopathy, Hyperammonemia Patient Disposition: Admitted As Inpatient Print Language: Sammarinese
[2025-07-03 06:15] LABS: Hematocrit 32.7 % (42.0-52.0); Hemoglobin 11.5 g/dl (14.0-18.0); Imm Gran Abs Auto 0.00 X10*3/uL (0.00-0.03); Imm Gran Pct Auto 0.0 % (0.0-0.4); Lymphocytes Absolute Auto 1.0 X10*3/uL (1.2-4.9); Mean Corpuscular HGB Conc 35.2 g/dl (31.0-36.0); Mean Corpuscular Hemoglobin 32.2 pg (27.0-33.0); Mean Corpuscular Volume 91.6 fL (80.0-98.0); NRBC Abs Auto 0.000 X10*3/uL (0.0-0.012); NRBC Pct Auto 0.0 /100WBC (0.0-0.2); Red Blood Count 3.57 X10*6/uL (4.60-5.80); SCAN SMEAR FLAG 1; White Blood Count 2.3 X10*3/uL (4.8-10.8)
[2025-07-03 06:16] LABS: MANUAL DIFF FLAG NO; Platelet Count 49 X10*3/uL (160-400)
[2025-07-03 06:22] LABS: Ammonia 104 umol/L (13-55)
[2025-07-03] MEDS: oxyCODONE HCl Immed Release 5 MG TABLET PO (06:29)
[2025-07-03 06:30] LABS: Alanine Aminotransferase 69 U/L (0-40); Albumin Level 2.5 g/dL (3.5-5.0); Alkaline Phosphatase 208 U/L (39-117); Anion Gap 8 (12-20); Aspartate Amino Transferase 166 U/L (5-37); Blood Urea Nitrogen 7 mg/dL (9-16); Calcium 8.4 mg/dL (8.4-10.2); Carbon Dioxide 26 mmol/L (22-29); Chloride 108 mmol/L (96-108); Creatinine Clr Calc Pharmacy 150.1; Estimated Glomerular Filt Rate > 60; Potassium 4.1 mmol/L (3.3-5.1); Sodium 138 mmol/L (135-145); Total Protein 6.2 g/dL (6.5-8.0)
--- NOTE | 2025-07-03 08:22 | PM.IMHP ---
History of Present Illness Date of Service: 07/03/25 Attending physician on admission: Seth Lucero Chief Complaint: encephalopathy 35-year-old male pertinent PMHx hep C, liver cirrhosis, hepatic encephalopathy, opiate dependence on methadone, obesity, alcohol use disorder patient was recently hospitalized for hepatic encephalopathy and was discharged on lactulose-he says he is not taking his lactulose for at least 1 weeks ,he is feeling generlaised weak,answers most questions but seems slow ,says he had 3-4 bm's today after started lactulose . denies any fever of chills or nausea or vomiting or abd pain or any urinary c/o. inr:1.3, bili 6.6(Slightly elevated from 06/12/25) ammonia levels 104 pt/inr/ptt:14.9/1.4/38.3 cxr negative. has hypoalbuminemia patient was given 1 dose o lactulose in ed and requested admission for hepatic encephalopathy since patient missed lactlose . Review of Systems Review of Systems: as above. Yes all other systems are reviewed and are negative [facility] Medical History Multiple falls Chronic constipation Methadone maintenance therapy patient Alcohol use disorder, severe, dependence Liver failure Alcoholic cirrhosis of liver with ascites Cirrhosis Cirrhosis Edema Alcohol abuse Increased ammonia level Substance abuse Opiate use Social History Household Members: Family Household Members Other:: Brother Housing: House Do you presently have visiting nurse or other home services: No Alcohol intake: current Alcohol intake frequency: 3 or more drinks per day Alcohol type: hard liquor Comment: Pt refusing assistance and alarms Patient Tobacco Use Status: Current someday Tobacco user Tobacco use type: Smokeless Tobacco Cigarette Packs Per Day: 1 Cigarettes Per Day: 20.0 Smoked in Last 30 Days: Yes e-Cigarette/Vaping Use: Currently Using Frequency of e-Cigarette/Vaping Use: daily Patient Interested in Nicotine Replacement: Yes Use of substances other than those prescribed or required for medical reasons: No Currently Displaying Signs/Symptoms of Drug Intoxication Withdrawal: No Have you been hit, kicked, punched, or otherwise hurt by someone within the past year? If so, by whom?: No Do you feel safe in your current relationship?: No Current Relationship Is there a partner from a previous relationship who is making you feel unsafe now?: No Are you made to feel afraid or neglected: No Advance Directives: Yes Advance Directives on File: Yes Advance Directives Date on File: 02/18/25 Do you have a plan to hurt others: No Plan Recently lost weight without trying: No Nutrition Risks: No Nutritional Risk service: No Meds Allergies Allergy/AdvReac Type Severity Reaction Status Date / Time fish derived (fish) Allergy Anaphylaxis Verified 07/03/25 04:24 shellfish derived Allergy Anaphylaxis Verified 07/03/25 04:24 Pork/Porcine Containing AdvReac Gastrointestinal Verified 07/03/25 04:24 Products Upset Active Medications: Current Medications Acetaminophen (Acetaminophen 325 Mg Tablet) 650 mg PO Q6H PRN PRN Reason: Pain, Mild 1-3,fever,headache Calcium Carbonate (Calcium Carbonate 750 Mg Tab.Chew) 750 mg PO Q4H PRN PRN Reason: Heartburn Lactulose (Lactulose 20 Gm/30 Ml Solution) 30 gm PO TID LU Magnesium Hydroxide (Milk Of Magnesia 30 Ml Oral.Susp) 30 ml PO DAILY PRN PRN Reason: Constipation Melatonin (Melatonin 3 Mg Tablet) 6 mg PO BEDTIME PRN PRN Reason: Insomnia Ondansetron HCl (Ondansetron Hcl 4 Mg/2 Ml Vial) 4 mg IVPUSH Q8H PRN PRN Reason: Nausea and Vomiting Sodium Chloride (0.9 % Sodium Chloride Flush 3 Ml Syringe) [address] [facility] Home Medications ?Medication ?Instructions ?Recorded ?Confirmed ?Last Taken ?Type methadone 10 mg/mL oral concentrate 90 mg PO DAILY 03/03/24 07/03/25 07/02/25 History clonidine HCl 0.1 mg tablet 0.1 mg PO TID 12/13/24 07/03/25 04/28/25 History gabapentin 800 mg tablet 800 mg PO TID 12/13/24 07/03/25 04/28/25 History sertraline 100 mg tablet 100 mg PO DAILY 12/13/24 07/03/25 04/28/25 History thiamine HCl (vitamin B1) 100 mg 200 mg PO DAILY 12/13/24 07/03/25 04/28/25 History tablet magnesium oxide 400 mg (241.3 mg 400 mg PO DAILY 02/12/25 07/03/25 04/28/25 History magnesium) tablet melatonin 5 mg tablet 5 - 10 mg PO BEDTIME PRN Sleep 02/12/25 07/03/25 04/28/25 History tamsulosin 0.4 mg capsule 0.4 mg PO DAILY 02/12/25 07/03/25 04/28/25 History lactulose 10 gram/15 mL oral 60 ml PO TID 03/28/25 07/03/25 04/28/25 History solution nicotine 21 mg/24 hr daily 1 patch topical DAILY PRN Smoking 04/30/25 07/03/25 Unknown History transdermal patch Cessation spironolactone 50 mg tablet 50 mg PO DAILY 05/23/25 07/03/25 Unknown History lorazepam 0.5 mg tablet 0.5 mg PO BID PRN Anxiety 06/05/25 07/03/25 Unknown History Physical Exam Vital Signs and Narrative: Vital Signs: Last Vital Signs Temp 98.5 F 07/03/25 06:27 Pulse 69 07/03/25 06:27 Resp 16 07/03/25 06:27 BP 103/53 L 07/03/25 06:27 Pulse Ox 98 07/03/25 06:27 O2 Del Method Room Air 07/03/25 06:27 BMI result Body Mass Index 22.4 Appearance: Alert.? Oriented X3,answer slowly cvs: rrr, [id number]. res: clear to auscultation ,no rhonchii or wheezing abd: no rebound or guarding ,nt, bs present. ext pulses present , no cyanosis . neuro: axo3 , nonfocal. Results Labs 07/03/25 06:11 07/03/25 06:11 Labs: Laboratory Results - last 24 hr 07/03/25 06:11 MCV 91.6 MCH 32.2 MCHC 35.2 RDW 15.2 Plt Count 49 L MPV 10.2 Immature Gran % (Auto) 0.0 Neut % (Auto) 47.0 Lymph % (Auto) 44.7 H Banks % (Auto) 6.6 Eos % (Auto) 1.3 Baso % (Auto) 0.4 Lymph # (Auto) 1.0 L Banks # (Auto) 0.2 Eos # (Auto) 0.0 Baso # (Auto) 0.0 Abs Immat Gran (auto) 0.00 Absolute Neuts (auto) 1.1 L Absolute Nucleated RBC 0.000 Nucleated RBC % (auto) 0.0 Anion Gap 8 L Estim Creat Clear Calc 150.1 Estimated GFR > 60 Random Glucose 109 Calcium 8.4 Total Bilirubin 6.6 H AST 166 H ALT 69 H Alkaline Phosphatase 208 H Ammonia 104 H Total Protein 6.2 L Albumin 2.5 L Imaging Radiologist's Impressions: Impressions Chest X-Ray 07/03/25 08:00 IMPRESSION: No active pulmonary disease. Electronically signed by: Maximino Christianson MD 07/03/2025 08:15 AM EDT RP Assessment and Plan (1) Acute hepatic encephalopathy: Status: Acute Plan 35-year-old male with a past medical history of hep C, liver cirrhosis, history of hepatic encephalopathy, opiate dependence on methadone, obesity, alcohol use disorder; Hepatic encephalopathy: Patient noted to have psychomotor slowing. Ammonia level elevated to 104 ran out lactulose. Continue lactulose with goal bowel movements of 3-4 per day Continue home rifaximin Aspiration precautions , neurochecks Gi eval. Alcohol use disorder: ciwa scale thiamine ,folic acid . Liver cirrosis : continue lasix/sprinolactone . Chronic thrombocytopenia: In the setting of liver disease. Denies any signs of bleeding. Will monitor. Opiate dependence: Patient on methadone. DVT prophylaxis: SCD boots Patient will benefit from 2 midnight stay considering hepatic encephalopthy require monirting mental status ,renal function electrlytes as well as liver function monitering ,Gi input. above d/w patient inn detail ,he understands and inagreement with above plan, time spent 70 min, full code. Quality Stroke Does the patient have a stroke diagnosis?: No VTE Prior VTE?: No VTE Risk Level:: Medical - low VTE Device Contraindication: Treatment Not Indicated VTE Drug Contraindication: Treatment Not Indicated
--- NOTE | 2025-07-03 08:46 | PHA.MEDREC ---
Addendum entered by Elsa Mclean RPh 07/03/25 09:49: MED REC REVIEWED BY [facility] Original Note: Pharmacy Consult ? Medication Reconciliation Pharmacy has completed the medication reconciliation. Patient was just discharged 06/13/25 patient states only change is he completed Potassium 8 ofelia and she is still taking Xifaxan 550 mg BID. Patient confirmed Methadone 90 mg from [facility] ,last dose was yesterday. Patient thinks he last took his medications yesterday. his medications
--- NOTE | 2025-07-03 09:46 | PC.NURSE ---
Addendum entered by Sophie Coleman RN 07/03/25 10:14: Spoke with Pharmacy who reports no contact has been made with Pt Methadone clinic. Call placed to [facility]es[facility] @ [phone] Spoke with DIANE Brady who confirms Pt last received Methadone 90mg on 07/01/25 and received 1 bottle of 90mg as a take home dose for 07/02/25. Caitlyn states Pt is due to be dosed in the clinic today (07/03/25.) Caitlyn aware Pt is admitted to the hospital at this time. Methadone verification form completed and faxed to pharmacy @ [phone]. Addendum entered by Sophie Coleman RN 07/03/25 10:02: RN to RN report completed with DIANE Mercado in ED Overflow. Pt has left the main ED at this time. Pharmacy completed med rec including Methadone dose. This RN does not need to call [facility] as previously noted. DIANE Mercado made aware via [facility] connect. Original Note: This RN attempts to medicate Pt with 0900 Lactulose. Pt states he cannot take at this time d/t GI upset. Pt requests a [employer] and gingerale. Pt advised that given his reported GI upset and inability to take scheduled medications, will hold off of on food. Failed attempt at IV placement and Pt reports he frequently requires U/S guided IV. Pt will be proceeding to ED Overflow unit, DIANE Mercado to place U/S guided IV. Pt not agreeable at this time to change into hospital gown. Pt advised it is policy and that he is admitted at this time. Pt states he will remain in his personal clothing at this time. Pt states he [facility]. Will call to verify dose for ordering.
--- NOTE | 2025-07-03 10:49 | HE.PHANOTE ---
Re methadone verification last dose given at [facility] on 07/01/25 90 mg with 1x take home bottle given at that time. Take home bottle taken on 07/02/25 per patient (confimed by jabari Correia).
[2025-07-03] MEDS: 0.9 % Sodium Chloride Flush 3 ML SYRINGE IVFLUSH ×2 (10:54→15:46)
--- NOTE | 2025-07-03 10:55 | PC.NURSE ---
report taken from Sophie, she verified methadone and sent info to pharmacy, I contacted Dr Lucero and he will order. Pt without an IV with multiple attempts. IV placed via u/s. 20 r fa 5.7 cm. 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 pt had taken a dose at 0630. Pt agreeable to take at 1500 at next scheduled dose. pt immediately asked for food and drink on arrival and sandwich and sola mike provided. nad. fully alert
--- NOTE | 2025-07-03 13:45 | PC.NURSE ---
This RN reached out to provider at this time to ask for pt Methadone dose for today as it is ordered to start tomorrow, pt also asking about his gabapentin and ativan which are not ordered at this time. Awaiting further orders.
--- NOTE | 2025-07-03 14:13 | MHC.CM.PN ---
PT LIVES WITH PARENTS GETS HIS METHDONE FROM [facility] PT HAS OWN TRANS[facility]
[2025-07-03] MEDS: methADONE HCl 20 MG/2 ML ORAL.CONC 90 MG PO (14:19)
--- NOTE | 2025-07-03 14:30 | HO.NURTONUR ---
alert and oriented with cirrhosis of liver, jaundiced, ammonia 105, got 1 dose of lactulose, us iv l fa 20, steady gait. just got his methadone. here quite frequently, dr Lucero working on med rec but not in system yet.
--- NOTE | 2025-07-03 17:54 | PC.NURSE ---
Lab re order for UA and Culture, Collected by mistake on wrong patient.
[2025-07-03] MEDS: Albumin Human 25 % 100 ML IV (19:37)
[2025-07-04] VITALS (10 sets, daily range): BP systolic 98–125; BP diastolic 57–69; PULSE 69–80; RESP 16–19; TEMP 36.6–37.4; O2SAT 95–97
[2025-07-04 00:12] LABS: Appearance Urine Clear; Glucose Urine UA Negative (Negative); PH 6.5 (5.0-9.0); Specific Gravity - Urine 1.015 (1.005-1.025); UMIC TRIGGER UACC YES
[2025-07-04 00:20] LABS: UACC Culture Trigger YES
[2025-07-04] MEDS: 0.9 % Sodium Chloride Flush 3 ML SYRINGE IVFLUSH ×4 (00:59→23:30)
[2025-07-04] MEDS: Albumin Human 25 % 100 ML IV ×3 (01:00→12:04)
[2025-07-04 07:12] LABS: Hematocrit 30.7 % (42.0-52.0); Hemoglobin 10.7 g/dl (14.0-18.0); Mean Corpuscular HGB Conc 34.9 g/dl (31.0-36.0); Mean Corpuscular Hemoglobin 31.8 pg (27.0-33.0); Mean Corpuscular Volume 91.1 fL (80.0-98.0); NRBC Abs Auto 0.000 X10*3/uL (0.0-0.012); NRBC Pct Auto 0.0 /100WBC (0.0-0.2); Red Blood Count 3.37 X10*6/uL (4.60-5.80)
[2025-07-04 07:15] LABS: Platelet Count 49 X10*3/uL (160-400); White Blood Count 1.8 X10*3/uL (4.8-10.8)
[2025-07-04 07:32] LABS: Alanine Aminotransferase 57 U/L (0-40); Albumin Level 3.0 g/dL (3.5-5.0); Alkaline Phosphatase 175 U/L (39-117); Anion Gap 9 (12-20); Aspartate Amino Transferase 136 U/L (5-37); Blood Urea Nitrogen 8 mg/dL (9-16); Calcium 8.4 mg/dL (8.4-10.2); Carbon Dioxide 25 mmol/L (22-29); Chloride 110 mmol/L (96-108); Creatinine Clr Calc Pharmacy 196.7; Estimated Glomerular Filt Rate > 60; Potassium 3.9 mmol/L (3.3-5.1); Sodium 140 mmol/L (135-145); Total Protein 6.2 g/dL (6.5-8.0)
[2025-07-04] MEDS: methADONE HCl 20 MG/2 ML ORAL.CONC 90 MG PO (08:07)
--- NOTE | 2025-07-04 11:20 | MHC.RECOVRN ---
TW met with pt in 472 to discuss current AUD/RAPHAEL and concerns related to increased risk of substance use related problems. On approach, pt is sitting in bed, eyes closed, head tilted to the side. Pt awoke to name being called and reports continued pain in legs, rated 8/10, despite pain medication. He reports feeling ?achy?, he denies other symptoms of withdrawal at this time.? Pt states he is currently using crack cocaine and alcohol, which he states leads him to continued use of opioids. Pt reports he was originally attending [facility] but stopped attending because he had active warrants and would see the police sitting outside the clinic. Pt states he can mostly stay off opioids while attending the clinic but without methadone has returned to daily use. Pt states he is using ? bundle of heroin daily mixed w/ cocaine and used intravenously. Pt also reports consuming approximately 2 nips of fireball, when finances will allow.? Pt reports attending numerous programs including [facility], [place], [facility], [facility] ?If you name it, I?ve been there?.? Pt has had numerous legal issues and reports his longest period of abstinence has been 2 years while incarcerated.? Stress and triggers for relapse include lack of employment and stable housing.? During the interview pt reports, ?I;m done using, I can;t live like this anymore?. When asked how he plans to do it he states, ?I'm just not going to use it?. 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 Pt was agreeable to all with the exception of IOP.? Discussed how substance use has impacted health, including negative impact on mental health and overall physical wellbeing.? Discussed and provided written education and resources for harm reduction techniques including utilizing [employer] for sterile supplies and drug testing, harm reduction techniques such as not sharing needles, utilizing a test shot when using a supply from a new supplier, and the importance of seeking medical help for wound care as well as education about the current drug supply and cutting agents used. Discussed how alcohol use has impacted health, including negative impact on mental health and overall physical well being. Discussed risk and reduction strategies including drinking below the recommended limit and not combining substances. Provided pt with written resources including information on inpatient and outpatient treatment, JAR[facility], harm reduction and recovery coaching.?? Pt accepted referrals for Recovery coaching and START program and was initiated on methadone during admission. Pt states he will attend [facility] for dosing in the community. Pt declines outpatient appt for treatment related to AUD at this time.? Pt was provided with TW?s contact information if questions or concerns arise. Pt denies further questions or concerns at this time.?
--- NOTE | 2025-07-04 11:45 | P.PNIM_ITS ---
Subjective Subjective Date of Service: 07/04/25 Interval History: shaky, foggy Physical Exam 2 Exam: Exam: Lethargic oriented x3, jaundice, tremulous, abdomen soft and nontender Vital Signs: Vital Signs: Last Vital Signs Temp 98.5 F 07/04/25 11:30 Pulse 77 07/04/25 11:30 Resp 17 07/04/25 11:30 BP 113/63 07/04/25 11:30 Pulse Ox 97 07/04/25 11:30 O2 Del Method Room Air 07/04/25 11:30 BMI result Body Mass Index 38.5 Objective Data Active Medications Acetaminophen (Acetaminophen 325 Mg Tablet) 650 mg PO Q6H PRN PRN Reason: Pain, Mild 1-3,fever,headache Calcium Carbonate (Calcium Carbonate 750 Mg Tab.Chew) 750 mg PO Q4H PRN PRN Reason: Heartburn Clonidine HCl (Clonidine Hcl 0.1 Mg Tablet) 0.1 mg PO TID LU; Protocol Last Admin: 07/04/25 08:07 Dose: 0.1 mg Documented By: FREYA Folic Acid (Folic Acid 1 Mg Tablet) 1 mg PO DAILY LU Last Admin: 07/04/25 08:07 Dose: 1 mg Documented By: FREYA Furosemide (Furosemide 40 Mg Tablet) 40 mg PO DAILY LU; Protocol Last Admin: 07/04/25 08:07 Dose: 40 mg Documented By: FREYA Gabapentin (Gabapentin 400 Mg Capsule) 800 mg PO TID LU Last Admin: 07/04/25 08:06 Dose: 800 mg Documented By: FREYA Albumin Human (Kedbumin 25 %) 100 mls @ 100 mls/hr IV Q6H LU Stop: 07/04/25 13:59 Last Infusion: 07/04/25 08:35 Dose: Infused Documented By: FREYA Lactulose (Lactulose 20 Gm/30 Ml Solution) 60 gm PO TID LU Lorazepam (Lorazepam 0.5 Mg Tablet) 0.5 mg PO BID PRN PRN Reason: Anxiety Last Admin: 07/04/25 08:34 Dose: 0.5 mg Documented By: FREYA Comments: OK to give scheduled BID PRN Magnesium Hydroxide (Milk Of Magnesia 30 Ml Oral.Susp) 30 ml PO DAILY PRN PRN Reason: Constipation Melatonin (Melatonin 3 Mg Tablet) 6 mg PO BEDTIME PRN PRN Reason: Insomnia Methadone HCl (Methadone Hcl 20 Mg/2 Ml Oral.Conc) 90 mg PO DAILY [facility] Last Admin: 07/04/25 08:07 Dose: 90 mg Documented By: FREYA Co-signed By: SANJAY Nicotine (Nicotine 21 Mg Patch.Td24) 21 mg TRANSDERMA DAILY PRN PRN Reason: Smoking Cessation Ondansetron HCl (Ondansetron Hcl 4 Mg/2 Ml Vial) 4 mg IVPUSH Q8H PRN PRN Reason: Nausea and Vomiting Pharmacy Consult (Consult Rx Etoh Phenob Im/Po) 1 each MISCELLANE ONCE PRN; Protocol PRN Reason: Consult order Phenobarbital (Phenobarbital 15 Mg Tablet) 45 mg PO BID [facility] Stop: 07/06/25 09:01 Phenobarbital (Phenobarbital 30 Mg Tablet) 30 mg PO BID [facility] Stop: 07/08/25 09:01 Phenobarbital (Phenobarbital 30 Mg Tablet) 30 mg PO BEDTIME [facility] Stop: 07/09/25 21:01 Phenobarbital Sodium (Phenobarbital Sodium 130 Mg/Ml Vial) 70 mg IM Q3H [facility] Stop: 07/04/25 16:01 Rifaximin (Rifaximin 550 Mg Tablet) 550 mg PO BID [facility] Last Admin: 07/04/25 08:07 Dose: 550 mg Documented By: FREYA Sertraline HCl (Sertraline Hcl 100 Mg Tablet) 100 mg PO DAILY [facility] Last Admin: 07/04/25 08:07 Dose: 100 mg Documented By: FREYA Sodium Chloride (0.9 % Sodium Chloride Flush 3 Ml Syringe) 3 ml IVFLUSH QSHIFT [facility] Last Admin: 07/04/25 07:29 Dose: 3 ml Documented By: FREYA Tamsulosin HCl (Tamsulosin Hcl 0.4 Mg Capsule) 0.4 mg PO DAILY [facility] Last Admin: 07/04/25 08:07 Dose: 0.4 mg Documented By: FREYA Thiamine HCl (Thiamine Hcl 100 Mg Tablet) 200 mg PO DAILY [facility] Last Admin: 07/04/25 08:07 Dose: 200 mg Documented By: FREYA Labs 07/04/25 06:42 07/04/25 06:42 Labs: Laboratory Results - last 24 hr 07/03/25 07/04/25 23:00 06:42 MCV 91.1 MCH 31.8 MCHC 34.9 RDW 15.3 Plt Count 49 L MPV 10.9 Absolute Nucleated RBC 0.000 Nucleated RBC % (auto) 0.0 Anion Gap 9 L Estim Creat Clear Calc 196.7 Estimated GFR > 60 Random Glucose 126 H Calcium 8.4 Total Bilirubin 5.9 H AST 136 H ALT 57 H Alkaline Phosphatase 175 H Total Protein 6.2 L Albumin 3.0 L Urine Color Dark Yellow Urine Appearance Clear Urine pH 6.5 Ur Specific [place] 1.015 Urine Protein Negative Urine Glucose (UA) Negative Urine Ketones Trace Urine Blood Negative Urine Nitrite Negative Ur Leukocyte Esterase Moderate (2+) H Urine RBC 0-2 Urine WBC 21-50 H Ur Squamous Epith Cells 6-10 Calcium Oxalate Crystal Present Urine Bacteria None Seen Hyaline Casts 0-2 Assessment and Plan (1) Hyperammonemia: Status: Acute Plan 35M PMH HCV/alcoholic cirrhosis decompensated with history of hepatic encephalopathy, opiate dependence on methadone, obesity, alcohol dependence presented with altered mental status, has been noncompliant with lactulose Acute metabolic encephalopathy due to hepatic encephalopathy due to HCV/alcoholic cirrhosis noncompliant with lactulose Continue lactulose and rifaximin for 2-4 bowel movements per day Alcohol dependence with withdrawal will start low-dose phenobarbital protocol Chronic pancytopenia due to liver disease Opiate dependence Methadone DVT prophylaxis-mechanical due to thrombocytopenia Full Code reason for continued hospitalization:still altered Quality Stroke Does the patient have a stroke diagnosis?: No VTE Prior VTE?: No VTE Risk Level:: Medical - low VTE Device Contraindication: Treatment Not Indicated VTE Drug Contraindication: Treatment Not Indicated
--- NOTE | 2025-07-04 13:37 | HO.ADDICT_ITS ---
History of Present Illness Date of Service: 07/04/2025 Chief Complaint: hepatic encephalopathy Reason for Consult: AUD Sources of Information: patient interviewed and chart reviewed HPI Narrative: Patient is a 35 year old male with medical history that includes AUD, cirrhosis of liver, and OUD in remission. Medically admitted with hepatic encephalopathy in the context of elevated ammonia and missed lactulose doses. Patient seen in room 386, he is asleep on approach, but wakes easily to voice. Very challenging to illicit any recent history from him as he is tangential and has difficulty remaining on topic or answering questions directly. He has provided inconsistent history to clinical care team, including when he last had any alcohol. To lean leader he reported last drink day before admission To t/w he could not recall when he last had a drink. Pheno taper was started based on history of alcohol withdrawal requiring pheno. No overt withdrawal sx noted, aside from mild tremor Unclear what his support system is like. During each admission here t/w has never encountered any visitors. Labs reviewed -ammonia level 104. Bili 6.6 Medical Evaluation Reviewed: Yes Review of Systems Constitutional: Reports as per HPI (right sided abdominal pain (chronic)) Diagnostics Vital Signs (24Hr): Vital Signs - 24 hr 07/03/25 15:44 07/03/25 20:00 07/03/25 23:50 Temperature 98.6 F 97.2 F 97.8 F Pulse Rate 72 68 60 Respiratory Rate 19 19 19 Blood Pressure 145/72 H 109/62 105/60 Pulse Oximetry 95 98 96 Oxygen Delivery Method Room Air Room Air 07/04/25 03:33 07/04/25 04:19 07/04/25 07:36 Temperature 97.9 F 98.2 F Pulse Rate 70 73 69 Respiratory Rate 16 16 18 Blood Pressure 98/57 L 106/62 125/69 Pulse Oximetry 95 97 Oxygen Delivery Method Room Air Room Air 07/04/25 08:07 07/04/25 08:07 07/04/25 11:30 Temperature 98.5 F Pulse Rate 77 Respiratory Rate 17 Blood Pressure 125/69 125/69 113/63 Pulse Oximetry 97 Oxygen Delivery Method Room Air BMI result Body Mass Index 38.5 Labs 07/04/25 06:42 07/04/25 06:42 Labs: Laboratory Results - last 48 hr 07/03/25 07/03/25 07/04/25 06:11 23:00 06:42 WBC 2.3 L 1.8 L RBC 3.57 L 3.37 L Hgb 11.5 L 10.7 L Hct 32.7 L 30.7 L MCV 91.6 91.1 MCH 32.2 31.8 MCHC 35.2 34.9 RDW 15.2 15.3 Plt Count 49 L 49 L MPV 10.2 10.9 Immature Gran % (Auto) 0.0 Neut % (Auto) 47.0 Lymph % (Auto) 44.7 H Wilcox % (Auto) 6.6 Eos % (Auto) 1.3 Baso % (Auto) 0.4 Lymph # (Auto) 1.0 L Wilcox # (Auto) 0.2 Eos # (Auto) 0.0 Baso # (Auto) 0.0 Abs Immat Gran (auto) 0.00 Absolute Neuts (auto) 1.1 L Absolute Nucleated RBC 0.000 0.000 Nucleated RBC % (auto) 0.0 0.0 Sodium 138 140 Potassium 4.1 D 3.9 Chloride 108 110 H Carbon Dioxide 26 25 Anion Gap 8 L 9 L BUN 7 L 8 L Creatinine 0.60 0.59 Estim Creat Clear Calc 150.1 196.7 Estimated GFR > 60 > 60 Random Glucose 109 126 H Calcium 8.4 8.4 Total Bilirubin 6.6 H 5.9 H AST 166 H 136 H ALT 69 H 57 H Alkaline Phosphatase 208 H 175 H Ammonia 104 H Total Protein 6.2 L 6.2 L Albumin 2.5 L 3.0 L Urine Color Dark Yellow Urine Appearance Clear Urine pH 6.5 Ur Specific [place] 1.015 Urine Protein Negative Urine Glucose (UA) Negative Urine Ketones Trace Urine Blood Negative Urine Nitrite Negative Ur Leukocyte Esterase Moderate (2+) H Urine RBC 0-2 Urine WBC 21-50 H Ur Squamous Epith Cells 6-10 Calcium Oxalate Crystal Present Urine Bacteria None Seen Hyaline Casts 0-2 Imaging Radiology Impressions: ITS Impressions Chest X-Ray 07/03/25 08:00 IMPRESSION: No active pulmonary disease. Electronically signed by: Maximino Christianson MD 07/03/2025 08:15 AM EDT RP Mental Status Exam Mental Status Exam Level of Consciousness: Drowsy Patient Behavior: Appropriate Affect Description: Calm Speech Pattern: Cofabulation (possibly?) and Delayed Hallucinations: None Thought Content: positive for Hiller Judgement: Fair Medications Medications Current Medications Acetaminophen (Acetaminophen 325 Mg Tablet) 650 mg PO Q6H PRN PRN Reason: Pain, Mild 1-3,fever,headache Calcium Carbonate (Calcium Carbonate 750 Mg Tab.Chew) 750 mg PO Q4H PRN PRN Reason: Heartburn Clonidine HCl (Clonidine Hcl 0.1 Mg Tablet) 0.1 mg PO TID [facility]; Protocol Last Admin: 07/04/25 08:07 Dose: 0.1 mg Folic Acid (Folic Acid 1 Mg Tablet) 1 mg PO DAILY [facility] Last Admin: 07/04/25 08:07 Dose: 1 mg Furosemide (Furosemide 40 Mg Tablet) 40 mg PO DAILY [facility]; Protocol Last Admin: 07/04/25 08:07 Dose: 40 mg Gabapentin (Gabapentin 400 Mg Capsule) 800 mg PO TID [facility] Last Admin: 07/04/25 08:06 Dose: 800 mg Albumin Human (Kedbumin 25 %) 100 mls @ 100 mls/hr IV Q6H [facility] Stop: 07/04/25 13:59 Last Admin: 07/04/25 12:04 Dose: 100 mls/hr Lactulose (Lactulose 20 Gm/30 Ml Solution) 60 gm PO TID [facility] Lorazepam (Lorazepam 0.5 Mg Tablet) 0.5 mg PO BID PRN PRN Reason: Anxiety Last Admin: 07/04/25 08:34 Dose: 0.5 mg Magnesium Hydroxide (Milk Of Magnesia 30 Ml Oral.Susp) 30 ml PO DAILY PRN PRN Reason: Constipation Melatonin (Melatonin 3 Mg Tablet) 6 mg PO BEDTIME PRN PRN Reason: Insomnia Methadone HCl (Methadone Hcl 20 Mg/2 Ml Oral.Conc) 90 mg PO DAILY [facility] Last Admin: 07/04/25 08:07 Dose: 90 mg Nicotine (Nicotine 21 Mg Patch.Td24) 21 mg TRANSDERMA DAILY PRN PRN Reason: Smoking Cessation Ondansetron HCl (Ondansetron Hcl 4 Mg/2 Ml Vial) 4 mg IVPUSH Q8H PRN PRN Reason: Nausea and Vomiting Pharmacy Consult (Consult Rx Etoh Phenob Im/Po) 1 each MISCELLANE ONCE PRN; Protocol PRN Reason: Consult order Phenobarbital (Phenobarbital 15 Mg Tablet) 45 mg PO BID [facility] Stop: 07/06/25 09:01 Phenobarbital (Phenobarbital 30 Mg Tablet) 30 mg PO BID [facility] Stop: 07/08/25 09:01 Phenobarbital (Phenobarbital 30 Mg Tablet) 30 mg PO BEDTIME [facility] Stop: 07/09/25 21:01 Phenobarbital Sodium (Phenobarbital Sodium 130 Mg/Ml Vial) 70 mg IM Q3H [facility] Stop: 07/04/25 16:01 Last Admin: 07/04/25 12:04 Dose: 70 mg Rifaximin (Rifaximin 550 Mg Tablet) 550 mg PO BID [facility] Last Admin: 07/04/25 08:07 Dose: 550 mg Sertraline HCl (Sertraline Hcl 100 Mg Tablet) 100 mg PO DAILY [facility] Last Admin: 07/04/25 08:07 Dose: 100 mg Sodium Chloride (0.9 % Sodium Chloride Flush 3 Ml Syringe) 3 ml IVFLUSH QSHIFT [facility] Last Admin: 07/04/25 07:29 Dose: 3 ml Tamsulosin HCl (Tamsulosin Hcl 0.4 Mg Capsule) 0.4 mg PO DAILY [facility] Last Admin: 07/04/25 08:07 Dose: 0.4 mg Thiamine HCl (Thiamine Hcl 100 Mg Tablet) 200 mg PO DAILY [facility] Last Admin: 07/04/25 08:07 Dose: 200 mg Allergies Allergies Allergy/AdvReac Type Severity Reaction Status Date / Time fish derived (fish) Allergy Anaphylaxis Verified 07/03/25 04:24 shellfish derived Allergy Anaphylaxis Verified 07/03/25 04:24 Pork/Porcine Containing AdvReac Gastrointestinal Verified 07/03/25 04:24 Products Upset Assessment & Plan Assessment & Plan (1) Methadone maintenance therapy patient: Status: Acute Code(s): F11.20 - Opioid dependence, uncomplicated Assessment and Plan: * methadone dose continued --already established with OTP (2) Alcohol use disorder: Status: Acute Code(s): F10.90 - Alcohol use, unspecified, uncomplicated Assessment and Plan: * pheno protocol started due to risk of alcohol withdrawal and history of alcohol withdrawal --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 PMFSH Past Medical History Medical History Multiple falls Chronic constipation Methadone maintenance therapy patient Alcohol use disorder, severe, dependence Liver failure Alcoholic cirrhosis of liver with ascites Cirrhosis Cirrhosis Edema Alcohol abuse Increased ammonia level Substance abuse Opiate use Social History Social History Household Members: Family Household Members Other:: Brother Housing: House Do you presently have visiting nurse or other home services: No Alcohol intake: current Alcohol intake frequency: 3 or more drinks per day Alcohol type: hard liquor Comment: Pt refusing assistance and alarms Patient Tobacco Use Status: Current someday Tobacco user Tobacco use type: Smokeless Tobacco Cigarette Packs Per Day: 1 Cigarettes Per Day: 20.0 Smoked in Last 30 Days: Yes e-Cigarette/Vaping Use: Currently Using Frequency of e-Cigarette/Vaping Use: daily Patient Interested in Nicotine Replacement: Yes Use of substances other than those prescribed or required for medical reasons: No Currently Displaying Signs/Symptoms of Drug Intoxication Withdrawal: No Have you been hit, kicked, punched, or otherwise hurt by someone within the past year? If so, by whom?: No Do you feel safe in your current relationship?: No Current Relationship Is there a partner from a previous relationship who is making you feel unsafe now?: No Are you made to feel afraid or neglected: No Advance Directives: Yes Advance Directives on File: Yes Advance Directives Date on File: 02/18/25 Do you have a plan to hurt others: No Plan Recently lost weight without trying: No Nutrition Risks: No Nutritional Risk service: No
--- NOTE | 2025-07-04 14:55 | MHC.RECOVRN ---
TW met with the patient in 386-1? to discuss current alcohol use and concerns related to increased risk of alcohol use and related problems.? On approach pt is laying in bed, eyes closed, in no apparent distress. Pt awakens to name being called and agreed to meet with OSMANY Vásquez interview pt was lethargic & difficult to follow. Pt appeared to fall asleep several times in mid conversation but awoke to name being called and would continue his statement. Pt denies current withdrawal symptoms and states his last drink was the day prior to admission. He states he checked in with probation and then went home and drank 1 beer and 1 glass of wine. He states prior to that day, his last drink was 2 months ago. He denies current drug use and states he has been attending [facility] for methadone dosing within the community, current dose confirmed at 90mg. Pt reports he has an AA sponsor he meets with weekly but does not attend AA meetings due to transportation issues. Pt urged to utilize zoom or other recovery supports. He denies the need or desire for a men's golf coach or JARED at this time. Pt reports history of legal trouble and state he is currently on probation for assaulting several police officers while under the influence of alcohol. Pt reports this assault happened a few months ago. He states he has to check into probation weekly and needs to provide random drug/alcohol screens, a factor he feels has contributed to his decrease in alcohol use. if I test positive, I'll have to serve 2 years Pt states that while at [facility] a few weeks ago he was given 27 oxycodone but he states he threw them away, because I know where it would lead . Pt was unable to explain what the medication was prescribed for and stated, they just gave it to me Discussed how alcohol use has impacted health, including negative impact on mental health and overall physical well being. Discussed risk and reduction strategies including drinking below the recommended limit. Provided pt with written resources including information on inpatient and outpatient treatment, JARED, harm reduction and recovery coaching.?? Patient plans to continue Methadone dosing at [facility] upon discharge. Pt declines intervention, JARED, or outpatient appt for treatment related to AUD at this time. Pt was provided with TW?s contact information if questions or concerns arise, which he denies at this time.?
--- NOTE | 2025-07-04 15:07 | MHC.CM.PN ---
CM met with patient to discuss dc plan/noncompliance w/ lactulose. Patient vague w/ most answers. Lives at home w/ his parents. Reports his mom still struggles with alcoholism, though is getting better but dad has been sober x6 years and is his biggest supporter. When asked about noncompliance w/ lactulose patient unable to provide a clear answer. Reports he runs out, but knows how to get refills. When asked if he would like to include dad in planning for more support w/ compliance, patient is reluctant but will consider. CM will continue to follow for dc planning and support.
--- NOTE | 2025-07-04 15:35 | PM.GICN ---
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 Patient was recently hospitalized at [facility] for hepatic encephalopathy in 05/2025 and was discharged on lactulose. Pt stated he has not taking his lactulose for at least 1 week since he ran out. He complained of generalized weakness and was able to have 3-4 bm's after he was given lactulose in the ED. Pt denied fever of chills or nausea or vomiting or abd pain or any urinary c/o. He was given 1 dose of lactulose in ed and admitted for further management of hepatic encephalopathy. Labs showed INR of 1.3, bili 6.6(Slightly elevated from 06/12/25), ammonia levels 104 pt/inr/ptt:14.9/1.4/38.3 He is known to me from previous hospitalizations and follow-up in the GI clinic. Pt states no ETOH use for the past 3 months. He has a history of substance abuse but reports that he is only using methadone, no additional drug use. He reports a positive family hx of alcohol related liver disease in his Dad 05/23/[address] SCAN SHOWED: Nodular liver with enlarged spleen. The gallbladder, adrenal glands, pancreas, kidneys, ureters and bladder are within normal limits. Moderate fecal retention throughout the colon. No bowel obstruction, free air, free fluid, abscess or adenopathy. No acute osseous finding. Impression: No definite acute process. Cirrhosis with sequelae of portal venous hypertension again noted. Review of Systems Review of Systems: Yes all other systems are reviewed and are negative Neurologic: Reports confusion Psychiatric: Psychiatric: Reports confusion PMFSH Past Medical History Medical History Multiple falls Chronic constipation Methadone maintenance therapy patient Alcohol use disorder, severe, dependence Liver failure Alcoholic cirrhosis of liver with ascites Cirrhosis Cirrhosis Edema Alcohol abuse Increased ammonia level Substance abuse Opiate use Social History Social History Household Members: Family Household Members Other:: Brother Housing: House Do you presently have visiting nurse or other home services: No Alcohol intake: current Alcohol intake frequency: 3 or more drinks per day Alcohol type: hard liquor Comment: Pt refusing assistance and alarms Patient Tobacco Use Status: Current someday Tobacco user Tobacco use type: Smokeless Tobacco Cigarette Packs Per Day: 1 Cigarettes Per Day: 20.0 Smoked in Last 30 Days: Yes e-Cigarette/Vaping Use: Currently Using Frequency of e-Cigarette/Vaping Use: daily Patient Interested in Nicotine Replacement: Yes Use of substances other than those prescribed or required for medical reasons: No Currently Displaying Signs/Symptoms of Drug Intoxication Withdrawal: No Have you been hit, kicked, punched, or otherwise hurt by someone within the past year? If so, by whom?: No Do you feel safe in your current relationship?: No Current Relationship Is there a partner from a previous relationship who is making you feel unsafe now?: No Are you made to feel afraid or neglected: No Advance Directives: Yes Advance Directives on File: Yes Advance Directives Date on File: 02/18/25 Do you have a plan to hurt others: No Plan Recently lost weight without trying: No Nutrition Risks: No Nutritional Risk service: No Meds Allergies Allergy/AdvReac Type Severity Reaction Status Date / Time fish derived (fish) Allergy Anaphylaxis Verified 07/03/25 04:24 shellfish derived Allergy Anaphylaxis Verified 07/03/25 04:24 Pork/Porcine Containing AdvReac Gastrointestinal Verified 07/03/25 04:24 Products Upset Active Medications: Current Medications Acetaminophen (Acetaminophen 325 Mg Tablet) 650 mg PO Q6H PRN PRN Reason: Pain, Mild 1-3,fever,headache Calcium Carbonate (Calcium Carbonate 750 Mg Tab.Chew) 750 mg PO Q4H PRN PRN Reason: Heartburn Clonidine HCl (Clonidine Hcl 0.1 Mg Tablet) 0.1 mg PO TID [facility]; Protocol Last Admin: 07/04/25 14:01 Dose: 0.1 mg Folic Acid (Folic Acid 1 Mg Tablet) 1 mg PO DAILY [facility] Last Admin: 07/04/25 08:07 Dose: 1 mg Furosemide (Furosemide 40 Mg Tablet) 40 mg PO DAILY [facility]; Protocol Last Admin: 07/04/25 08:07 Dose: 40 mg Gabapentin (Gabapentin 400 Mg Capsule) 800 mg PO TID [facility] Last Admin: 07/04/25 14:01 Dose: 800 mg Thiamine HCl 100 mg/ Sodium (Chloride) 101 mls @ 202 mls/hr IV BID [facility] Stop: 07/07/25 20:59 Lactulose (Lactulose 20 Gm/30 Ml Solution) 60 gm PO TID [facility] Last Admin: 07/04/25 14:02 Dose: 60 gm Lorazepam (Lorazepam 0.5 Mg Tablet) 0.5 mg PO BID PRN PRN Reason: Anxiety Last Admin: 07/04/25 08:34 Dose: 0.5 mg Magnesium Hydroxide (Milk Of Magnesia 30 Ml Oral.Susp) 30 ml PO DAILY PRN PRN Reason: Constipation Melatonin (Melatonin 3 Mg Tablet) 6 mg PO BEDTIME PRN PRN Reason: Insomnia Methadone HCl (Methadone Hcl 20 Mg/2 Ml Oral.Conc) 90 mg PO DAILY [facility] Last Admin: 07/04/25 08:07 Dose: 90 mg Nicotine (Nicotine 21 Mg Patch.Td24) 21 mg TRANSDERMA DAILY PRN PRN Reason: Smoking Cessation Ondansetron HCl (Ondansetron Hcl 4 Mg/2 Ml Vial) 4 mg IVPUSH Q8H PRN PRN Reason: Nausea and Vomiting Pharmacy Consult (Consult Rx Etoh Phenob Im/Po) 1 each MISCELLANE ONCE PRN; Protocol PRN Reason: Consult order Phenobarbital (Phenobarbital 15 Mg Tablet) 45 mg PO BID [facility] Stop: 07/06/25 09:01 Phenobarbital (Phenobarbital 30 Mg Tablet) 30 mg PO BID [facility] Stop: 07/08/25 09:01 Phenobarbital (Phenobarbital 30 Mg Tablet) 30 mg PO BEDTIME [facility] Stop: 07/09/25 21:01 Phenobarbital Sodium (Phenobarbital Sodium 130 Mg/Ml Vial) 70 mg IM Q3H [facility] Stop: 07/04/25 16:01 Last Admin: 07/04/25 12:04 Dose: 70 mg Rifaximin (Rifaximin 550 Mg Tablet) 550 mg PO BID [facility] Last Admin: 07/04/25 08:07 Dose: 550 mg Sertraline HCl (Sertraline Hcl 100 Mg Tablet) 100 mg PO DAILY [facility] Last Admin: 07/04/25 08:07 Dose: 100 mg Sodium Chloride (0.9 % Sodium Chloride Flush 3 Ml Syringe) 3 ml IVFLUSH QSHIFT [facility] Last Admin: 07/04/25 07:29 Dose: 3 ml Tamsulosin HCl (Tamsulosin Hcl 0.4 Mg Capsule) 0.4 mg PO DAILY [facility] Last Admin: 07/04/25 08:07 Dose: 0.4 mg Home Medications ?Medication ?Instructions ?Recorded ?Confirmed ?Last Taken ?Type methadone 10 mg/mL oral concentrate 90 mg PO DAILY 03/03/24 07/03/25 07/02/25 History clonidine HCl 0.1 mg tablet 0.1 mg PO TID 12/13/24 07/03/25 04/28/25 History gabapentin 800 mg tablet 800 mg PO TID 12/13/24 07/03/25 04/28/25 History sertraline 100 mg tablet 100 mg PO DAILY 12/13/24 07/03/25 04/28/25 History thiamine HCl (vitamin B1) 100 mg 200 mg PO DAILY 12/13/24 07/03/25 04/28/25 History tablet magnesium oxide 400 mg (241.3 mg 400 mg PO DAILY 02/12/25 07/03/25 04/28/25 History magnesium) tablet melatonin 5 mg tablet 5 - 10 mg PO BEDTIME PRN Sleep 02/12/25 07/03/25 04/28/25 History tamsulosin 0.4 mg capsule 0.4 mg PO DAILY 02/12/25 07/03/25 04/28/25 History lactulose 10 gram/15 mL oral 60 ml PO TID 03/28/25 07/03/25 04/28/25 History solution nicotine 21 mg/24 hr daily 1 patch topical DAILY PRN Smoking 04/30/25 07/03/25 Unknown History transdermal patch Cessation spironolactone 50 mg tablet 50 mg PO DAILY 05/23/25 07/03/25 Unknown History lorazepam 0.5 mg tablet 0.5 mg PO BID PRN Anxiety 06/05/25 07/03/25 Unknown History Physical Exam Vital Signs: Vital Signs: Last Vital Signs Temp 99.3 F 07/04/25 14:00 Pulse 80 07/04/25 14:00 Resp 18 07/04/25 14:00 BP 117/63 07/04/25 14:01 Pulse Ox 96 07/04/25 14:00 O2 Del Method Room Air 07/04/25 14:00 BMI result Body Mass Index 38.5 Const: General: no acute distress and confusion Nutritional Appearance: obese Orientation/consciousness: confusion and Other orientation findings (slow response to questions) HEENT: Head: Yes normal to inspection Ears: hearing grossly normal bilaterally Eyes: Sclerae: sclerae normal Pupils: Equal, round and reactive pupils present Neck: Neck: Yes normal visual inspection Chest: Chest palpation & inspection: normal inspection of the chest Resp: Effort & Inspection: normal respiratory effort Auscultation: clear to auscultation bilaterally Cardio: Palpation: normal PMI Rate: regular rate Rhythm: regular rhythm Heart sounds: S1 normal heart sound present, S2 normal heart sound present and no murmurs GI: Palpation (GI): Soft to palpation, nontender and No hepatosplenomegaly present Auscultation: normal bowel sounds Rectal Exam - Male: Yes deferred Skin: General skin exam: no rashes or lesions noted and spider nevi Neuro: General: gait normal, moves all extremities and confusion Cranial nerves: Yes Equal, round and reactive pupils present Psych: Appearance: grossly normal Mental Status: mental status grossly normal Results Labs 07/04/25 06:42 07/04/25 06:42 Labs: Short CBC 07/04/25 Range/Units 06:42 WBC 1.8 L (4.8-10.8) X10*3/uL Hgb 10.7 L (14.0-18.0) g/dl Hct 30.7 L (42.0-52.0) % Plt Count 49 L (160-400) X10*3/uL BMP 07/04/25 06:42 Sodium 140 Potassium 3.9 Chloride 110 H Carbon Dioxide 25 BUN 8 L Creatinine 0.59 Calcium 8.4 Liver Function 07/04/25 Range/Units 06:42 Total Bilirubin 5.9 H (0.0-1.0) mg/dL AST 136 H (5-37) U/L ALT 57 H (0-40) U/L Alkaline Phosphatase 175 H (39-117) U/L Albumin 3.0 L (3.5-5.0) g/dL Urine 07/03/25 Range/Units 23:00 Urine Color Dark Yellow Urine Appearance Clear Urine pH 6.5 (5.0-9.0) Ur Specific [place] 1.015 (1.005-1.025) Urine Protein Negative (Neg-Trace) mg/dL Urine Glucose (UA) Negative (Negative) mg/dL Assessment and Plan (1) Chronic liver disease and cirrhosis: Status: Acute (2) Acute hepatic encephalopathy: Status: Acute Plan 35 YM with ESLD related to ETOH abuse and hepatitis-C untreated, hydrops of the gallbladder, substance abuse on methadone, Class 3 obesity, restless leg syndrome, anxiety depression ADMITTED TO [facility] on 07/03/25 with a change in mental status with hepatic encephalopathy likely due to noncompliance with lactulose. Pt has ESLD due to chronic Hep C and METALD complicated by hepatic encephalopathy He missed his FU appt in the GI clinic last month RECOMMENDATIONS: 1. Agree with IV PPI, pain medications and antiemetics 2. CIWA protocol for ETOH withdrawl 3. Lactulose TID for hepatic encephalopathy - titrate to 3 soft BMs a day 4. Hold off steroids due to hep C 5. High protein and calorie diet 6. Check mag, K, PO4 and replenish if low 7. Needs ETOH rehab after discharge to quit drinking - states no ETOH x 3 months 8. Needs to stop drinking before he can be treated for Hep C to ensure compliance with Hep C treatment. Pt will be scheduled for FU appt in the GI clinic after discharge Procedures Date of Service Date of Service: 07/04/25
[2025-07-04] MEDS: Thiamine HCL 100 MG in 0.9 % Sodium Chloride 100 ML 202 MG IV (21:08)
[2025-07-05] VITALS (8 sets, daily range): BP systolic 95–117; BP diastolic 55–70; PULSE 62–88; RESP 18–22; TEMP 36.6–36.9; O2SAT 94–98
[2025-07-05] MEDS: methADONE HCl 20 MG/2 ML ORAL.CONC 90 MG PO (08:01)
[2025-07-05] MEDS: Thiamine HCL 100 MG in 0.9 % Sodium Chloride 100 ML 202 MG IV ×2 (08:03→21:13)
[2025-07-05] MEDS: 0.9 % Sodium Chloride Flush 3 ML SYRINGE IVFLUSH ×2 (08:04→21:14)
--- NOTE | 2025-07-05 11:05 | MHC.CM.PN ---
Addendum entered by Chelsi Whitaker RN 07/05/25 14:01: RN aware of plan for father to be present or on the phone to discuss lactulose instructions at dc. Lazarus Portillo CM: [phone] Addendum entered by Chelsi Whitaker RN 07/05/25 13:58: Rec'd call from Cris Portillo's CM, who has been following patient for some time. Discussed plan to include patient's father in dc planning/lactulose instructions (patient agreeable). Lindsey will continue this plan when patient is home and include father on phone calls with patient. Patient also reporting concerns w/ delinquency prevention officer. Says he will need a note with admission dates on dc. Original Note: Per MD, patient not medically cleared for dc. CM will continue to follow.
--- NOTE | 2025-07-05 11:46 | P.PNIM_ITS ---
Subjective Subjective Date of Service: 07/05/25 Interval History: still feeling sluggish Neurologic Neurologic: Reports confusion Psychiatric Psychiatric: Reports confusion Physical Exam 2 Vital Signs: Vital Signs: Last Vital Signs Temp 97.9 F 07/05/25 11:26 Pulse 73 07/05/25 11:26 Resp 22 H 07/05/25 11:26 BP 107/62 07/05/25 11:26 Pulse Ox 96 07/05/25 11:26 O2 Del Method Room Air 07/05/25 11:26 BMI result Body Mass Index 38.5 Const: General: no acute distress and confusion Nutritional Appearance: o bese Orientation/consciousness: confusion and Other orientation findings (slow response to questions) HEENT: Head: Yes normal to inspection Ears: hearing grossly normal bilaterally Eyes: Sclerae: sclerae normal Pupils: Equal, round and reactive pupils present Neck: Neck: Yes normal visual inspection Chest: Chest palpation & inspection: normal inspection of the chest Resp: Effort & Inspection: normal respiratory effort Auscultation: clear to auscultation bilaterally Cardio: Palpation: normal PMI Rate: regular rate Rhythm: regular rhythm Heart sounds: S1 normal heart sound present, S2 normal heart sound present and no murmurs GI: Palpation (GI): Soft to palpation, nontender and No hepatosplenomegaly present Auscultation: normal bowel sounds Rectal Exam - Male: Yes deferred Skin: General skin exam: no rashes or lesions noted and spider nevi Neuro: General: gait normal, moves all extremities and confusion Cranial nerves: Yes Equal, round and reactive pupils present Psych: Appearance: grossly normal Mental Status: mental status grossly normal Objective Data Active Medications Acetaminophen (Acetaminophen 325 Mg Tablet) 650 mg PO Q6H PRN PRN Reason: Pain, Mild 1-3,fever,headache Calcium Carbonate (Calcium Carbonate 750 Mg Tab.Chew) 750 mg PO Q4H PRN PRN Reason: Heartburn Clonidine HCl (Clonidine Hcl 0.1 Mg Tablet) 0.1 mg PO TID [facility]; Protocol Last Admin: 07/05/25 08:02 Dose: 0.1 mg Documented By: VALERIE Folic Acid (Folic Acid 1 Mg Tablet) 1 mg PO DAILY [facility] Last Admin: 07/05/25 08:02 Dose: 1 mg Documented By: VALERIE Furosemide (Furosemide 40 Mg Tablet) 40 mg PO DAILY [facility]; Protocol Last Admin: 07/05/25 08:02 Dose: 40 mg Documented By: VALERIE Gabapentin (Gabapentin 400 Mg Capsule) 800 mg PO TID [facility] Last Admin: 07/05/25 08:02 Dose: 800 mg Documented By: VALERIE Thiamine HCl 100 mg/ Sodium (Chloride) 101 mls @ 202 mls/hr IV BID [facility] Stop: 07/07/25 20:59 Last Infusion: 07/05/25 08:33 Dose: Infused Documented By: VALERIE Lactulose (Lactulose 20 Gm/30 Ml Solution) 60 gm PO TID [facility] Last Admin: 07/05/25 08:03 Dose: 30 gm Documented By: VALERIE Comments: pt only agreed to take half of of the dose Lorazepam (Lorazepam 0.5 Mg Tablet) 0.5 mg PO BID PRN PRN Reason: Anxiety Last Admin: 07/04/25 08:34 Dose: 0.5 mg Documented By: FREYA Comments: OK to give scheduled BID PRN Magnesium Hydroxide (Milk Of Magnesia 30 Ml Oral.Susp) 30 ml PO DAILY PRN PRN Reason: Constipation Melatonin (Melatonin 3 Mg Tablet) 6 mg PO BEDTIME PRN PRN Reason: Insomnia Last Admin: 07/04/25 21:06 Dose: 6 mg Documented By: KENNY Methadone HCl (Methadone Hcl 20 Mg/2 Ml Oral.Conc) 90 mg PO DAILY [facility] Last Admin: 07/05/25 08:01 Dose: 90 mg Documented By: VALERIE Co-signed By: FREYA Nicotine (Nicotine 21 Mg Patch.Td24) 21 mg TRANSDERMA DAILY PRN PRN Reason: Smoking Cessation Ondansetron HCl (Ondansetron Hcl 4 Mg/2 Ml Vial) 4 mg IVPUSH Q8H PRN PRN Reason: Nausea and Vomiting Pharmacy Consult (Consult Rx Etoh Phenob Im/Po) 1 each MISCELLANE ONCE PRN; Protocol PRN Reason: Consult order Phenobarbital (Phenobarbital 15 Mg Tablet) 45 mg PO BID [facility] Stop: 07/06/25 09:01 Last Admin: 07/05/25 08:03 Dose: 45 mg Documented By: VALERIE Phenobarbital (Phenobarbital 30 Mg Tablet) 30 mg PO BID [facility] Stop: 07/08/25 09:01 Phenobarbital (Phenobarbital 30 Mg Tablet) 30 mg PO BEDTIME [facility] Stop: 07/09/25 21:01 Rifaximin (Rifaximin 550 Mg Tablet) 550 mg PO BID [facility] Last Admin: 07/05/25 08:02 Dose: 550 mg Documented By: VALERIE Sertraline HCl (Sertraline Hcl 100 Mg Tablet) 100 mg PO DAILY [facility] Last Admin: 07/05/25 08:02 Dose: 100 mg Documented By: VALERIE Sodium Chloride (0.9 % Sodium Chloride Flush 3 Ml Syringe) 3 ml IVFLUSH QSHIFT [facility] Last Admin: 07/05/25 08:04 Dose: 3 ml Documented By: VALERIE Tamsulosin HCl (Tamsulosin Hcl 0.4 Mg Capsule) 0.4 mg PO DAILY [facility] Last Admin: 07/05/25 08:02 Dose: 0.4 mg Documented By: VALERIE Labs 07/04/25 06:42 07/04/25 06:42 Microbiology Microbiology Results: Microbiology 07/04/25 Unknown Urine Culture - Final Urine clean catch No growth. Assessment and Plan (1) Hyperammonemia: Status: Acute Plan 35M PMH HCV/alcoholic cirrhosis decompensated with history of hepatic encephalopathy, opiate dependence on methadone, obesity, alcohol dependence presented with altered mental status, has been noncompliant with lactulose Acute metabolic encephalopathy due to hepatic encephalopathy due to HCV/alcoholic cirrhosis noncompliant with lactulose Continue lactulose and rifaximin for 2-4 bowel movements per day Alcohol dependence with withdrawal phenobarbital protocol Chronic pancytopenia due to liver disease Opiate dependence Methadone DVT prophylaxis-mechanical due to thrombocytopenia Full Code reason for continued hospitalization:still altered, sluggish Quality Stroke Does the patient have a stroke diagnosis?: No VTE Prior VTE?: No VTE Risk Level:: Medical - low VTE Device Contraindication: Treatment Not Indicated VTE Drug Contraindication: Treatment Not Indicated
[2025-07-06 03:37] VITALS: BP 105/68; PULSE 74; RESP 20; TEMP 36.7; O2SAT 96
[2025-07-06 06:25] LABS: Hematocrit 32.9 % (42.0-52.0); Hemoglobin 11.5 g/dl (14.0-18.0); Mean Corpuscular HGB Conc 35.0 g/dl (31.0-36.0); Mean Corpuscular Hemoglobin 32.2 pg (27.0-33.0); Mean Corpuscular Volume 92.2 fL (80.0-98.0); NRBC Abs Auto 0.000 X10*3/uL (0.0-0.012); NRBC Pct Auto 0.0 /100WBC (0.0-0.2); Platelet Count 44 X10*3/uL (160-400); Red Blood Count 3.57 X10*6/uL (4.60-5.80); White Blood Count 1.9 X10*3/uL (4.8-10.8)
[2025-07-06 06:26] LABS: Ammonia 101 umol/L (13-55)
[2025-07-06 06:38] LABS: Alanine Aminotransferase 51 U/L (0-40); Albumin Level 3.2 g/dL (3.5-5.0); Alkaline Phosphatase 164 U/L (39-117); Anion Gap 9 (12-20); Aspartate Amino Transferase 119 U/L (5-37); Blood Urea Nitrogen 6 mg/dL (9-16); Calcium 8.2 mg/dL (8.4-10.2); Carbon Dioxide 27 mmol/L (22-29); Chloride 107 mmol/L (96-108); Creatinine Clr Calc Pharmacy 223.2; Estimated Glomerular Filt Rate > 60; Potassium 3.6 mmol/L (3.3-5.1); Sodium 139 mmol/L (135-145); Total Protein 6.4 g/dL (6.5-8.0)
[2025-07-06 07:51] VITALS: BP 113/70; PULSE 65; RESP 16; TEMP 36.1; O2SAT 98
[2025-07-06] MEDS: Thiamine HCL 100 MG in 0.9 % Sodium Chloride 100 ML 202 MG IV ×2 (08:41→20:06)
[2025-07-06] MEDS: methADONE HCl 20 MG/2 ML ORAL.CONC 90 MG PO (08:41)
--- NOTE | 2025-07-06 08:52 | HO.PM.IMPN ---
Subjective Subjective Date of Service: 07/06/25 Interval History: No significant change, 3 bowel movements noted last 24 hours Neurologic Neurologic: Reports confusion Psychiatric Psychiatric: Reports confusion Physical Exam Vital Signs: Vital Signs: Last Vital Signs Temp 97.0 F 07/06/25 07:51 Pulse 65 07/06/25 07:51 Resp 16 07/06/25 07:51 BP 113/70 07/06/25 07:51 Pulse Ox 98 07/06/25 07:51 O2 Del Method Room Air 07/06/25 07:51 BMI result Body Mass Index 38.5 Const: General: no acute distress and confusion Nutritional Appearance: obese Orientation/consciousness: confusion and Other orientation findings (slow response to questions) HEENT: Head: Yes normal to inspection Ears: hearing grossly normal bilaterally Eyes: Sclerae: sclerae normal Pupils: Equal, round and reactive pupils present Neck: Neck: Yes normal visual inspection Chest: Chest palpation & inspection: normal inspection of the chest Resp: Effort & Inspection: normal respiratory effort Auscultation: clear to auscultation bilaterally Cardio: Palpation: normal PMI Rate: regular rate Rhythm: regular rhythm Heart sounds: S1 normal heart sound present, S2 normal heart sound present and no murmurs GI: Palpation (GI): Soft to palpation, nontender and No hepatosplenomegaly present Auscultation: normal bowel sounds Rectal Exam - Male: Yes deferred Skin: General skin exam: no rashes or lesions noted and spider nevi Neuro: General: gait normal, moves all extremities and confusion Cranial nerves: Yes Equal, round and reactive pupils present Psych: Appearance: grossly normal Mental Status: mental status grossly normal Objective Data Active Medications Acetaminophen (Acetaminophen 325 Mg Tablet) 650 mg PO Q6H PRN PRN Reason: Pain, Mild 1-3,fever,headache Calcium Carbonate (Calcium Carbonate 750 Mg Tab.Chew) 750 mg PO Q4H PRN PRN Reason: Heartburn Clonidine HCl (Clonidine Hcl 0.1 Mg Tablet) 0.1 mg PO TID [facility]; Protocol Last Admin: 07/06/25 08:40 Dose: 0.1 mg Documented By: MOODY Folic Acid (Folic Acid 1 Mg Tablet) 1 mg PO DAILY [facility] Last Admin: 07/06/25 08:41 Dose: 1 mg Documented By: MOODY Furosemide (Furosemide 40 Mg Tablet) 40 mg PO DAILY [facility]; Protocol Last Admin: 07/06/25 08:41 Dose: 40 mg Documented By: MOODY Gabapentin (Gabapentin 400 Mg Capsule) 800 mg PO TID [facility] Last Admin: 07/06/25 08:41 Dose: 800 mg Documented By: MOODY Thiamine HCl 100 mg/ Sodium (Chloride) 101 mls @ 202 mls/hr IV BID [facility] Stop: 07/07/25 20:59 Last Admin: 07/06/25 08:41 Dose: 202 mls/hr Documented By: MOODY Lactulose (Lactulose 20 Gm/30 Ml Solution) 30 gm PO Q4H [facility] Last Admin: 07/06/25 06:35 Dose: 30 gm Documented By: SG Lorazepam (Lorazepam 0.5 Mg Tablet) 0.5 mg PO BID PRN PRN Reason: Anxiety Last Admin: 07/05/25 21:54 Dose: 0.5 mg Documented By: SG Magnesium Hydroxide (Milk Of Magnesia 30 Ml Oral.Susp) 30 ml PO DAILY PRN PRN Reason: Constipation Melatonin (Melatonin 3 Mg Tablet) 6 mg PO BEDTIME PRN PRN Reason: Insomnia Last Admin: 07/04/25 21:06 Dose: 6 mg Documented By: KENNY Methadone HCl (Methadone Hcl 20 Mg/2 Ml Oral.Conc) 90 mg PO DAILY [facility] Last Admin: 07/06/25 08:41 Dose: 90 mg Documented By: MOODY Co-signed By: ALESSIA Nicotine (Nicotine 21 Mg Patch.Td24) 21 mg TRANSDERMA DAILY PRN PRN Reason: Smoking Cessation Ondansetron HCl (Ondansetron Hcl 4 Mg/2 Ml Vial) 4 mg IVPUSH Q8H PRN PRN Reason: Nausea and Vomiting Pharmacy Consult (Consult Rx Etoh Phenob Im/Po) 1 each MISCELLANE ONCE PRN; Protocol PRN Reason: Consult order Phenobarbital (Phenobarbital 15 Mg Tablet) 45 mg PO BID [facility] Stop: 07/06/25 09:01 Last Admin: 07/06/25 08:41 Dose: 45 mg Documented By: MOODY Phenobarbital (Phenobarbital 30 Mg Tablet) 30 mg PO BID [facility] Stop: 07/08/25 09:01 Phenobarbital (Phenobarbital 30 Mg Tablet) 30 mg PO BEDTIME [facility] Stop: 07/09/25 21:01 Rifaximin (Rifaximin 550 Mg Tablet) 550 mg PO BID [facility] Last Admin: 07/06/25 08:41 Dose: 550 mg Documented By: MOODY Sertraline HCl (Sertraline Hcl 100 Mg Tablet) 100 mg PO DAILY [facility] Last Admin: 07/06/25 08:41 Dose: 100 mg Documented By: MOODY Sodium Chloride (0.9 % Sodium Chloride Flush 3 Ml Syringe) 3 ml IVFLUSH QSHIFT [facility] Last Admin: 07/05/25 21:14 Dose: 3 ml Documented By: SG Tamsulosin HCl (Tamsulosin Hcl 0.4 Mg Capsule) 0.4 mg PO DAILY [facility] Last Admin: 07/06/25 08:41 Dose: 0.4 mg Documented By: MOODY Labs 07/06/25 06:09 07/06/25 06:09 Labs: Laboratory Results - last 24 hr 07/06/25 06:09 MCV 92.2 MCH 32.2 MCHC 35.0 RDW 15.6 Plt Count 44 L MPV 10.2 Absolute Nucleated RBC 0.000 Nucleated RBC % (auto) 0.0 Anion Gap 9 L Estim Creat Clear Calc 223.2 Estimated GFR > 60 Random Glucose 107 Calcium 8.2 L Total Bilirubin 6.1 H Direct Bilirubin 4.2 H AST 119 H ALT 51 H Alkaline Phosphatase 164 H Ammonia 101 H Total Protein 6.4 L Albumin 3.2 L Microbiology Microbiology Results: Microbiology 07/04/25 Unknown Urine Culture - Final Urine clean catch No growth. Assessment and Plan (1) Hyperammonemia: Status: Acute Plan 35M PMH HCV/alcoholic cirrhosis decompensated with history of hepatic encephalopathy, opiate dependence on methadone, obesity, alcohol dependence presented with altered mental status, has been noncompliant with lactulose Acute metabolic encephalopathy due to hepatic encephalopathy due to HCV/alcoholic cirrhosis noncompliant with lactulose Continue lactulose and rifaximin for 2-4 bowel movements per day Alcohol dependence with withdrawal phenobarbital protocol Chronic pancytopenia due to liver disease Opiate dependence Methadone DVT prophylaxis-mechanical due to thrombocytopenia Full Code reason for continued hospitalization:still altered, sluggish Quality Stroke Does the patient have a stroke diagnosis?: No VTE Prior VTE?: No VTE Risk Level:: Medical - low VTE Device Contraindication: Treatment Not Indicated VTE Drug Contraindication: Treatment Not Indicated
[2025-07-06 11:45] VITALS: BP 107/61; PULSE 76; RESP 16; TEMP 36.7; O2SAT 95
[2025-07-06] MEDS: Nicotine 21 MG PATCH.TD24 TRANSDERMA (11:49)
[2025-07-06 15:34] VITALS: BP 113/56; PULSE 72; RESP 19; TEMP 36.5; O2SAT 97
[2025-07-06] MEDS: 0.9 % Sodium Chloride Flush 3 ML SYRINGE IVFLUSH ×2 (15:40→22:56)
[2025-07-06 19:56] VITALS: BP 107/61; PULSE 65; RESP 19; TEMP 36.4; O2SAT 96
--- NOTE | 2025-07-06 22:08 | PC.NURSE ---
Pt refusing lactulose states had 5 bowel movements today.
[2025-07-06 23:48] VITALS: BP 102/65; PULSE 85; RESP 16; TEMP 36.3; O2SAT 96
[2025-07-07] VITALS (7 sets, daily range): BP systolic 100–116; BP diastolic 56–72; PULSE 65–81; RESP 16–20; TEMP 36.3–37.4; O2SAT 95–98
[2025-07-07] MEDS: Potassium Chloride ER 20 MEQ TAB.ER.PRT 40 MEQ PO (08:41)
[2025-07-07] MEDS: methADONE HCl 20 MG/2 ML ORAL.CONC 90 MG PO (08:42)
--- NOTE | 2025-07-07 09:03 | HO.PM.IMPN ---
Subjective Subjective Date of Service: 07/07/25 Interval History: still with asterixis Physical Exam Exam: Exam: General: AO X 3, no acute distress, sluggish Resp: CTA bilateral, no accessory muscles used CVS: S1,S2,RRR GI: soft, non tender, non distended Neuro: motor grossly intact, alert, flapping tremor Psych: appropriate affect, appropriate insight Vital Signs: Vital Signs: Last Vital Signs Temp 97.4 F 07/07/25 07:38 Pulse 65 07/07/25 07:38 Resp 16 07/07/25 07:38 BP 110/61 07/07/25 08:42 Pulse Ox 98 07/07/25 07:38 O2 Del Method Room Air 07/07/25 07:38 BMI result Body Mass Index 38.5 Objective Data Active Medications Acetaminophen (Acetaminophen 325 Mg Tablet) 650 mg PO Q6H PRN PRN Reason: Pain, Mild 1-3,fever,headache Calcium Carbonate (Calcium Carbonate 750 Mg Tab.Chew) 750 mg PO Q4H PRN PRN Reason: Heartburn Last Admin: 07/06/25 15:43 Dose: 750 mg Documented By: MOODY Clonidine HCl (Clonidine Hcl 0.1 Mg Tablet) 0.1 mg PO TID [facility]; Protocol Last Admin: 07/07/25 08:42 Dose: 0.1 mg Documented By: MOODY Folic Acid (Folic Acid 1 Mg Tablet) 1 mg PO DAILY [facility] Last Admin: 07/07/25 08:41 Dose: 1 mg Documented By: MOODY Furosemide (Furosemide 40 Mg Tablet) 40 mg PO DAILY [facility]; Protocol Last Admin: 07/07/25 08:42 Dose: 40 mg Documented By: MOODY Gabapentin (Gabapentin 400 Mg Capsule) 800 mg PO TID [facility] Last Admin: 07/07/25 08:41 Dose: 800 mg Documented By: MOODY Lactulose (Lactulose 20 Gm/30 Ml Solution) 30 gm PO Q4H [facility] Last Admin: 07/07/25 06:36 Dose: Not Given Documented By: SG Non-Admin Reason: Patient Refused Lorazepam (Lorazepam 0.5 Mg Tablet) 0.5 mg PO BID PRN PRN Reason: Anxiety Last Admin: 07/06/25 22:55 Dose: 0.5 mg Documented By: SG Magnesium Hydroxide (Milk Of Magnesia 30 Ml Oral.Susp) 30 ml PO DAILY PRN PRN Reason: Constipation Melatonin (Melatonin 3 Mg Tablet) 6 mg PO BEDTIME PRN PRN Reason: Insomnia Last Admin: 07/04/25 21:06 Dose: 6 mg Documented By: KENNY Methadone HCl (Methadone Hcl 20 Mg/2 Ml Oral.Conc) 90 mg PO DAILY [facility] Last Admin: 07/07/25 08:42 Dose: 90 mg Documented By: MOODY Co-signed By: JAZLYN Nicotine (Nicotine 21 Mg Patch.Td24) 21 mg TRANSDERMA DAILY PRN PRN Reason: Smoking Cessation Last Admin: 07/06/25 11:49 Dose: 21 mg Documented By: JAZLYN Ondansetron HCl (Ondansetron Hcl 4 Mg/2 Ml Vial) 4 mg IVPUSH Q8H PRN PRN Reason: Nausea and Vomiting Pharmacy Consult (Consult Rx Etoh Phenob Im/Po) 1 each MISCELLANE ONCE PRN; Protocol PRN Reason: Consult order Phenobarbital (Phenobarbital 30 Mg Tablet) 30 mg PO BID [facility] Stop: 07/08/25 09:01 Last Admin: 07/07/25 08:42 Dose: 30 mg Documented By: MOODY Phenobarbital (Phenobarbital 30 Mg Tablet) 30 mg PO BEDTIME [facility] Stop: 07/09/25 21:01 Rifaximin (Rifaximin 550 Mg Tablet) 550 mg PO BID [facility] Last Admin: 07/07/25 08:41 Dose: 550 mg Documented By: MOODY Sertraline HCl (Sertraline Hcl 100 Mg Tablet) 100 mg PO DAILY [facility] Last Admin: 07/07/25 08:41 Dose: 100 mg Documented By: MOODY Sodium Chloride (0.9 % Sodium Chloride Flush 3 Ml Syringe) 3 ml IVFLUSH QSHIFT [facility] Last Admin: 07/07/25 08:45 Dose: Not Given Documented By: MOODY Non-Admin Reason: Previously Administered Tamsulosin HCl (Tamsulosin Hcl 0.4 Mg Capsule) 0.4 mg PO DAILY [facility] Last Admin: 07/07/25 08:41 Dose: 0.4 mg Documented By: MOODY Thiamine HCl (Thiamine Hcl 100 Mg Tablet) 100 mg PO DAILY [facility] Last Admin: 07/07/25 08:41 Dose: 100 mg Documented By: MOODY Labs 07/06/25 06:09 07/06/25 06:09 Assessment and Plan (1) Hyperammonemia: Status: Acute Plan 35M PMH HCV/alcoholic cirrhosis decompensated with history of hepatic encephalopathy, opiate dependence on methadone, obesity, alcohol dependence presented with altered mental status, has been noncompliant with lactulose Acute metabolic encephalopathy due to hepatic encephalopathy due to HCV/alcoholic cirrhosis noncompliant with lactulose Continue lactulose and rifaximin for 2-4 bowel movements per day Alcohol dependence with withdrawal phenobarbital protocol Chronic pancytopenia due to liver disease Opiate dependence Methadone DVT prophylaxis-mechanical due to thrombocytopenia Full Code reason for continued hospitalization:still altered, sluggish, asterixis Quality Stroke Does the patient have a stroke diagnosis?: No VTE Prior VTE?: No VTE Risk Level:: Medical - low VTE Device Contraindication: Treatment Not Indicated VTE Drug Contraindication: Treatment Not Indicated
[2025-07-07] MEDS: Nicotine 21 MG PATCH.TD24 TRANSDERMA (10:06)
[2025-07-07] MEDS: 0.9 % Sodium Chloride Flush 3 ML SYRINGE IVFLUSH (21:05)
[2025-07-08 03:49] VITALS: BP 124/67; PULSE 71; RESP 18; TEMP 37.4; O2SAT 98
[2025-07-08 06:00] LABS: Hematocrit 31.2 % (42.0-52.0); Hemoglobin 10.8 g/dl (14.0-18.0); Mean Corpuscular HGB Conc 34.6 g/dl (31.0-36.0); Mean Corpuscular Hemoglobin 31.8 pg (27.0-33.0); Mean Corpuscular Volume 91.8 fL (80.0-98.0); NRBC Abs Auto 0.000 X10*3/uL (0.0-0.012); NRBC Pct Auto 0.0 /100WBC (0.0-0.2); Red Blood Count 3.40 X10*6/uL (4.60-5.80)
[2025-07-08 06:04] LABS: Ammonia 125 umol/L (13-55)
[2025-07-08 06:06] LABS: Platelet Count 40 X10*3/uL (160-400); White Blood Count 2.1 X10*3/uL (4.8-10.8)
[2025-07-08 06:14] LABS: Alanine Aminotransferase 48 U/L (0-40); Albumin Level 3.1 g/dL (3.5-5.0); Alkaline Phosphatase 157 U/L (39-117); Anion Gap 10 (12-20); Aspartate Amino Transferase 113 U/L (5-37); Blood Urea Nitrogen 7 mg/dL (9-16); Calcium 8.2 mg/dL (8.4-10.2); Carbon Dioxide 26 mmol/L (22-29); Chloride 105 mmol/L (96-108); Creatinine Clr Calc Pharmacy 207.3; Estimated Glomerular Filt Rate > 60; Magnesium 1.5 mg/dL (1.6-2.6); Potassium 3.0 mmol/L (3.3-5.1); Sodium 138 mmol/L (135-145); Total Protein 6.3 g/dL (6.5-8.0)
[2025-07-08 08:00] VITALS: BP 117/63; PULSE 76; RESP 17; TEMP 37.2; O2SAT 96
[2025-07-08] MEDS: methADONE HCl 20 MG/2 ML ORAL.CONC 90 MG PO (08:46)
[2025-07-08] MEDS: Potassium Chloride ER 20 MEQ TAB.ER.PRT 40 MEQ PO (08:50)
[2025-07-08] MEDS: 0.9 % Sodium Chloride Flush 3 ML SYRINGE IVFLUSH ×3 (08:53→21:10)
--- NOTE | 2025-07-08 08:53 | P.PNIM_ITS ---
Subjective Subjective Date of Service: 07/08/25 Interval History: no bm yesterday Physical Exam 2 Exam: Exam: General: AO X 3, no acute distress, sluggish Resp: CTA bilateral, no accessory muscles used CVS: S1,S2,RRR GI: soft, non tender, non distended Neuro: motor grossly intact, alert, flapping tremor Psych: appropriate affect, appropriate insight Vital Signs: Vital Signs: Last Vital Signs Temp 99.0 F 07/08/25 08:00 Pulse 76 07/08/25 08:00 Resp 17 07/08/25 08:00 BP 117/63 07/08/25 08:00 Pulse Ox 96 07/08/25 08:00 O2 Del Method Room Air 07/08/25 08:00 BMI result Body Mass Index 38.5 Objective Data Active Medications Acetaminophen (Acetaminophen 325 Mg Tablet) 650 mg PO Q6H PRN PRN Reason: Pain, Mild 1-3,fever,headache Calcium Carbonate (Calcium Carbonate 750 Mg Tab.Chew) 750 mg PO Q4H PRN PRN Reason: Heartburn Last Admin: 07/06/25 15:43 Dose: 750 mg Documented By: MOODY Clonidine HCl (Clonidine Hcl 0.1 Mg Tablet) 0.1 mg PO TID [facility]; Protocol Last Admin: 07/07/25 20:20 Dose: 0.1 mg Documented By: KURTIS Folic Acid (Folic Acid 1 Mg Tablet) 1 mg PO DAILY [facility] Last Admin: 07/07/25 08:41 Dose: 1 mg Documented By: MOODY Furosemide (Furosemide 40 Mg Tablet) 40 mg PO DAILY [facility]; Protocol Last Admin: 07/07/25 08:42 Dose: 40 mg Documented By: MOODY Gabapentin (Gabapentin 400 Mg Capsule) 800 mg PO TID [facility] Last Admin: 07/07/25 20:20 Dose: 800 mg Documented By: KURTIS Lactulose (Lactulose 20 Gm/30 Ml Solution) 30 gm PO Q4H [facility] Last Admin: 07/08/25 05:50 Dose: 30 gm Documented By: KURTIS Lorazepam (Lorazepam 0.5 Mg Tablet) 0.5 mg PO BID PRN PRN Reason: Anxiety Last Admin: 07/08/25 00:14 Dose: 0.5 mg Documented By: KURTIS Magnesium Hydroxide (Milk Of Magnesia 30 Ml Oral.Susp) 30 ml PO DAILY PRN PRN Reason: Constipation Melatonin (Melatonin 3 Mg Tablet) 6 mg PO BEDTIME PRN PRN Reason: Insomnia Last Admin: 07/04/25 21:06 Dose: 6 mg Documented By: KENNY Methadone HCl (Methadone Hcl 20 Mg/2 Ml Oral.Conc) 90 mg PO DAILY [facility] Last Admin: 07/08/25 08:46 Dose: 90 mg Documented By: VALERIE Co-signed By: UVALDO Nicotine (Nicotine 21 Mg Patch.Td24) 21 mg TRANSDERMA DAILY PRN PRN Reason: Smoking Cessation Last Admin: 07/07/25 10:06 Dose: 21 mg Documented By: JAZLYN Ondansetron HCl (Ondansetron Hcl 4 Mg/2 Ml Vial) 4 mg IVPUSH Q8H PRN PRN Reason: Nausea and Vomiting Pharmacy Consult (Consult Rx Etoh Phenob Im/Po) 1 each MISCELLANE ONCE PRN; Protocol PRN Reason: Consult order Phenobarbital (Phenobarbital 30 Mg Tablet) 30 mg PO BID [facility] Stop: 07/08/25 09:01 Last Admin: 07/07/25 20:20 Dose: 30 mg Documented By: KURTIS Phenobarbital (Phenobarbital 30 Mg Tablet) 30 mg PO BEDTIME [facility] Stop: 07/09/25 21:01 Rifaximin (Rifaximin 550 Mg Tablet) 550 mg PO BID [facility] Last Admin: 07/07/25 20:20 Dose: 550 mg Documented By: KURTIS Sertraline HCl (Sertraline Hcl 100 Mg Tablet) 100 mg PO DAILY [facility] Last Admin: 07/07/25 08:41 Dose: 100 mg Documented By: MOODY Sodium Chloride (0.9 % Sodium Chloride Flush 3 Ml Syringe) 3 ml IVFLUSH QSHIFT [facility] Last Admin: 07/07/25 21:05 Dose: 3 ml Documented By: KURTIS Tamsulosin HCl (Tamsulosin Hcl 0.4 Mg Capsule) 0.4 mg PO DAILY [facility] Last Admin: 07/07/25 08:41 Dose: 0.4 mg Documented By: MOODY Thiamine HCl (Thiamine Hcl 100 Mg Tablet) 100 mg PO DAILY [facility] Last Admin: 07/07/25 08:41 Dose: 100 mg Documented By: MOODY Labs 07/08/25 05:48 07/08/25 05:48 Labs: Laboratory Results - last 24 hr 07/08/25 05:48 MCV 91.8 MCH 31.8 MCHC 34.6 RDW 16.0 Plt Count 40 L MPV 10.8 Absolute Nucleated RBC 0.000 Nucleated RBC % (auto) 0.0 Anion Gap 10 L Estim Creat Clear Calc 207.3 Estimated GFR > 60 Random Glucose 149 H Calcium 8.2 L Magnesium 1.5 L Total Bilirubin 5.9 H Direct Bilirubin 3.8 H AST 113 H ALT 48 H Alkaline Phosphatase 157 H Ammonia 125 H Total Protein 6.3 L Albumin 3.1 L Assessment and Plan (1) Hyperammonemia: Status: Acute Plan 35M PMH HCV/alcoholic cirrhosis decompensated with history of hepatic encephalopathy, opiate dependence on methadone, obesity, alcohol dependence presented with altered mental status, has been noncompliant with lactulose Acute metabolic encephalopathy due to hepatic encephalopathy due to HCV/alcoholic cirrhosis noncompliant with lactulose Continue lactulose and rifaximin for 2-4 bowel movements per day a bit worse today, intermittent complaince Alcohol dependence with withdrawal phenobarbital protocol Chronic pancytopenia due to liver disease Opiate dependence Methadone DVT prophylaxis-mechanical due to thrombocytopenia Full Code reason for continued hospitalization:still altered, sluggish, asterixis Quality Stroke Does the patient have a stroke diagnosis?: No VTE Prior VTE?: No VTE Risk Level:: Medical - low VTE Device Contraindication: Treatment Not Indicated VTE Drug Contraindication: Treatment Not Indicated
[2025-07-08] MEDS: Nicotine 21 MG PATCH.TD24 TRANSDERMA (08:57)
--- NOTE | 2025-07-08 10:33 | MHC.CM.PN ---
Patient not medically cleared for dc at this time. CM will continue to follow.
[2025-07-08 12:00] VITALS: BP 107/62; PULSE 70; RESP 17; TEMP 36.4; O2SAT 96
--- NOTE | 2025-07-08 12:43 | P.CDIM_ITS ---
PROVIDER RESPONSE TEXT: To clarify, the appropriate diagnosis supported by the clinical indicators: Hypokalemia: acute QUERY TEXT: PHYSICIAN'S DOCUMENTATION REQUEST Date of Query: 07/08/2025 12:32 PM EDT Patient Name: Shay Nicholas Admit Date: 07/03/2025 Dear Gagandeep Sandra MD, A review of the medical record indicates additional documentation may be needed. Please review below and update the documentation accordingly. Clinical Indicators: LABS: Potassium 3.0 L Klor-Con Based on the above, is there a diagnosis that correlates with these lab findings: Hypokalemia resolved, possible, probable, suspected etc. Labs indicate a diagnosis of (please specify) Other (explain) Clinically unable to determine (explain) Thank you, Lupe Cerda, CCS, CDIS Use of terms such as suspected, likely, concern for, or probable (associated with a specific diagnosis that is being evaluated, monitored, or treated as if it exists) are acceptable and can be coded in the inpatient setting, when documented at the time of discharge. Please use your independent medical judgment in providing your response. THIS QUERY IS PART OF THE PERMANENT MEDICAL RECORD
[2025-07-08 15:21] VITALS: BP 129/70; PULSE 70; RESP 18; TEMP 36.3; O2SAT 97
[2025-07-08 19:28] VITALS: BP 114/64; PULSE 72; RESP 18; TEMP 36.3; O2SAT 99
[2025-07-09 03:30] VITALS: BP 110/53; PULSE 67; RESP 16; TEMP 36.3; O2SAT 98
[2025-07-09 06:11] LABS: Ammonia 86 umol/L (13-55)
[2025-07-09 06:22] LABS: Alanine Aminotransferase 45 U/L (0-40); Albumin Level 3.0 g/dL (3.5-5.0); Alkaline Phosphatase 149 U/L (39-117); Anion Gap 8 (12-20); Aspartate Amino Transferase 110 U/L (5-37); Blood Urea Nitrogen 7 mg/dL (9-16); Calcium 8.0 mg/dL (8.4-10.2); Carbon Dioxide 27 mmol/L (22-29); Chloride 106 mmol/L (96-108); Creatinine Clr Calc Pharmacy 227.6; Estimated Glomerular Filt Rate > 60; Potassium 3.1 mmol/L (3.3-5.1); Sodium 138 mmol/L (135-145); Total Protein 6.3 g/dL (6.5-8.0)
[2025-07-09 06:34] LABS: Hematocrit 31.4 % (42.0-52.0); Hemoglobin 11.0 g/dl (14.0-18.0); Mean Corpuscular HGB Conc 35.0 g/dl (31.0-36.0); Mean Corpuscular Hemoglobin 32.2 pg (27.0-33.0); Mean Corpuscular Volume 91.8 fL (80.0-98.0); NRBC Abs Auto 0.000 X10*3/uL (0.0-0.012); NRBC Pct Auto 0.0 /100WBC (0.0-0.2); Red Blood Count 3.42 X10*6/uL (4.60-5.80)
[2025-07-09 06:35] LABS: Platelet Count 41 X10*3/uL (160-400); White Blood Count 2.2 X10*3/uL (4.8-10.8)
--- NOTE | 2025-07-09 08:19 | PM.DS ---
DS: Providers Provider Date of Service: 07/09/25 Date of admission: 07/03/25 07:58 Date of discharge: 07/09/25 Primary care physician: Stephen Biggs MD Consults: 07/03/25 15:41 Consult to Gastroenterology Routine Consulting Provider: Conrad Herrera Reason for consultation: hepatic encepahlopathy Has provider been notified: No 07/03/25 19:12 Addiction Medicine Provider Routine Consulting Provider: Addiction Covering Reason for consultation: alcohol use Has provider been notified: No DS: Diagnosis Discharge Diagnosis (1) Hyperammonemia: Status: Acute DS: Summary Hospital Course Hospital Course: from initial hpi: 35-year-old male pertinent PMHx hep C, liver cirrhosis, hepatic encephalopathy, opiate dependence on methadone, obesity, alcohol use disorder patient was recently hospitalized for hepatic encephalopathy and was discharged on lactulose-he says he is not taking his lactulose for at least 1 weeks ,he is feeling generlaised weak,answers most questions but seems slow ,says he had 3-4 bm's today after started lactulose . denies any fever of chills or nausea or vomiting or abd pain or any urinary c/o. inr:1.3, bili 6.6(Slightly elevated from 06/12/25) ammonia levels 104 pt/inr/ptt:14.9/1.4/38.3 cxr negative. has hypoalbuminemia patient was given 1 dose o lactulose in ed and requested admission for hepatic encephalopathy since patient missed lactlose . hospital course: Patient was admitted for acute metabolic encephalopathy due to hepatic encephalopathy due to HCV/alcoholic cirrhosis noncompliant with lactulose. Was restarted on lactulose and rifaximin for goal of 2-4 bowel movements per day eventually had some improvement ammonia down to 80 which he states is around his baseline. He is encouraged to continue lactulose at home. For alcohol dependence with withdrawal received phenobarb and resolved. For chronic pancytopenia due to liver disease remained stable. For opiate dependence was continued on methadone. Patient is feeling better and he will be discharged home. Time Attestation Discharge Coordination Time (in mins): 33 Quality: Safe Use of Opioids Does Pt have an Active Cancer Diagnosis on the Problem List?: No Quality: Stroke Does the patient have a stroke diagnosis?: No Physical Exam Exam: Exam: General: AO X 3, no acute distress Resp: CTA bilateral, no accessory muscles used CVS: S1,S2,RRR GI: soft, non tender, non distended Neuro: motor grossly intact, alert Psych: appropriate affect, appropriate insight Vital Signs: Vital Signs: Last Vital Signs Temp 97.3 F 07/09/25 03:30 Pulse 67 07/09/25 03:30 Resp 16 07/09/25 03:30 BP 110/53 L 07/09/25 03:30 Pulse Ox 98 07/09/25 03:30 O2 Del Method Room Air 07/09/25 03:30 BMI result Body Mass Index 38.5 DS: Data Data Completed and Pending Completed studies during hospitalization [Text1]: Procedures Detoxification Services for Substance Abuse Treatment (12/13/24) Labs on day of discharge: Laboratory Results - last 24 hr 07/09/25 05:54 WBC 2.2 L RBC 3.42 L Hgb 11.0 L Hct 31.4 L MCV 91.8 MCH 32.2 MCHC 35.0 RDW 16.3 H Plt Count 41 L MPV 11.8 Absolute Nucleated RBC 0.000 Nucleated RBC % (auto) 0.0 Sodium 138 Potassium 3.1 L Chloride 106 Carbon Dioxide 27 Anion Gap 8 L BUN 7 L Creatinine 0.51 Estim Creat Clear Calc 227.6 Estimated GFR > 60 Random Glucose 124 H Calcium 8.0 L Total Bilirubin 6.3 H Direct Bilirubin 4.0 H AST 110 H ALT 45 H Alkaline Phosphatase 149 H Ammonia 86 H Total Protein 6.3 L Albumin 3.0 L Discharge Plan Discharge Anticipated Discharge Date/Time: 07/09/25 08:17 Patient Disposition: Home, Self-Care Discharge Diagnosis: Hepatic encephalopathy Referrals: Stephen Biggs MD [Primary Care Provider, Internal Medicine] - 1 Week Discharge Medications: Continued furosemide 40 mg tablet 40 mg PO DAILY 90 Days Qty: 90 1RF methadone 10 mg/mL Concentrate 90 mg PO DAILY Rx Instructions: MAU DUNCAN [phone] clonidine HCl 0.1 mg tablet 0.1 mg PO TID sertraline 100 mg tablet 100 mg PO DAILY thiamine HCl (vitamin B1) 100 mg tablet 200 mg PO DAILY gabapentin 800 mg tablet 800 mg PO TID spironolactone 50 mg tablet 50 mg PO DAILY lorazepam 0.5 mg tablet 0.5 mg PO BID PRN (Reason: Anxiety) magnesium oxide 400 mg (241.3 mg magnesium) tablet 400 mg PO DAILY tamsulosin 0.4 mg capsule 0.4 mg PO DAILY melatonin 5 mg Tablet 5 - 10 mg PO BEDTIME PRN (Reason: Sleep) Xifaxan 550 mg Tablet 550 mg PO BID Qty: 60 0RF nicotine 21 mg/24 hr patch 24 hour 1 patch topical DAILY PRN (Reason: Smoking Cessation) lactulose 10 gram/15 mL solution 60 ml PO TID 90 Days Qty: [id number] 0RF Discharge Orders: Discharge Order (Routine); Ordered 07/09/25 Ordered By: Gagandeep Sandra Diet: Advance to usual diet Activity on Discharge: As tolerated Stand Alone Forms: Patient Portal Discharge page Print Language: Ukrainian Care Plan Goals: Avoid encephalopathy Health Concerns: Hepatic encephalopathy Plan of Treatment: Titrate lactulose for 2-4 bowel movements per day Assessment: See above
[2025-07-09] MEDS: methADONE HCl 20 MG/2 ML ORAL.CONC 90 MG PO (08:50)
[2025-07-09 10:06] VITALS: BP 122/63; PULSE 75; RESP 18; TEMP 36.3; O2SAT 96
--- NOTE | 2025-07-09 10:26 | MHC.CM.PN ---
Patient medically cleared for dc home self care. Mother to transport. RN aware patient will call his father to be included in dc instructions, particularly re: lactulose. Patient was provided w/ a letter including admission/dc dates to provide to his chief risk officer per patient request.
--- NOTE | 2025-07-09 10:58 | PC.NURSE ---
Discharge instructions reviewed with patient and father via telephone. Reviewed medications including lactulose and educated patient and family regarding lactulose and the importance of it, both verbalized understanding and agreement. Last dose methadone envelope given to patient.
[2025-07-09 12:21] VITALS: BP 123/70; PULSE 95; RESP 18; TEMP 37; O2SAT 97
== END 2025-07-09 12:54 | disposition home or self-care (01) | DRG 280 ==
LOC: HO.ED 07:26 → HO.EDOVER 07:59 → HO.S3 13:47
PROVIDERS: Internal Medicine; Admitting Provider Internal Medicine; Emergency Provider Emergency Medicine; PCP Internal Medicine; Visit Provider Internal Medicine
DX: K70.30 Alcoholic cirrhosis of liver without ascites (principal); G93.41 Metabolic encephalopathy; D61.818 Other pancytopenia; B19.20 Unspecified viral hepatitis C without hepatic coma; E87.6 Hypokalemia; F10.239 Alcohol dependence with withdrawal, unspecified; F17.210 Nicotine dependence, cigarettes, uncomplicated; K76.82 Hepatic encephalopathy; Z71.6 Tobacco abuse counseling; Z91.148 Patient's other noncompliance with medication regimen for other reason; Z79.899 Other long term (current) drug therapy
CPT/HCPCS: 36415; 71045; 80048; 80053; 80076; 81001; 82140; 83735; 85025; 85027; 87086; 99285; J2560; J3411; P9047; S9485

== ENCOUNTER → 2025-07-03 07:20 | Outpatient (BNV) | payer OTHER, SELFPAY | PROVIDERS: Admitting Provider Internal Medicine; Emergency Provider Emergency Medicine; PCP Internal Medicine; Visit Provider Radiology Diagnostic Radiology | DX: R42 Dizziness and giddiness (principal) | CPT/HCPCS: 71045 ==

== ENCOUNTER → 2025-07-03 07:58 | Outpatient (BNV) | payer OTHER, SELFPAY | PROVIDERS: Admitting Provider Internal Medicine; Emergency Provider Emergency Medicine; PCP Internal Medicine; Visit Provider Internal Medicine Gastroenterology | DX: K74.60 Unspecified cirrhosis of liver (principal); K76.9 Liver disease, unspecified; K76.82 Hepatic encephalopathy | CPT/HCPCS: 99222 ==

== ENCOUNTER → 2025-07-03 07:58 | Outpatient (BNV) | payer OTHER, SELFPAY | PROVIDERS: Admitting Provider Internal Medicine; Emergency Provider Emergency Medicine; PCP Internal Medicine; Visit Provider Nurse Practitioner Psychiatric/Mental Health | DX: F11.20 Opioid dependence, uncomplicated (principal); F10.90 Alcohol use, unspecified, uncomplicated | CPT/HCPCS: 99222 ==

== ENCOUNTER → 2025-07-03 07:58 | Outpatient (BNV) | payer OTHER, SELFPAY | PROVIDERS: Admitting Provider Internal Medicine; Emergency Provider Emergency Medicine; PCP Internal Medicine; Visit Provider Internal Medicine | DX: E72.20 Disorder of urea cycle metabolism, unspecified (principal) | CPT/HCPCS: 99222; 99232; 99233 ==

== ENCOUNTER 2025-07-22 10:45 | Inpatient (IN) | payer OTHER, SELFPAY ==
[2025-07-22 10:49] VITALS: BP 128/68; PULSE 93; RESP 16; TEMP 36.6; O2SAT 94; BMI 38.3
--- NOTE | 2025-07-22 10:49 | ED.GENADULT ---
HPI - General Adult General Chief complaint: General Medical Stated complaint: pale, shaking Time Seen by Provider: 07/22/25 11:04 History of Present Illness ED Provider: Cait LOPEZ narrative: The patient is a 35-year-old male with a history of opioid use disorder on methadone. Apparently he presented to his methadone clinic this morning but the methadone clinic would not give him his dose today because they felt he did not look well. He was advised to come to the emergency department. He arrived here by private vehicle. The patient is very vague as to whether he does not feel well. He admits that he might not feel well but he is not certain how long he has not felt well nor is he able to say in what way he does not really feel well. He denies using any IV drugs. He says that he has not used IV drugs for years. He also denies using drugs nasally or taking non-prescribed pills. Related Data Home Medications ?Medication ?Instructions ?Recorded ?Confirmed methadone 10 mg/mL oral concentrate 90 mg PO DAILY 03/03/24 07/03/25 clonidine HCl 0.1 mg tablet 0.1 mg PO TID 12/13/24 07/03/25 gabapentin 800 mg tablet 800 mg PO TID 12/13/24 07/03/25 sertraline 100 mg tablet 100 mg PO DAILY 12/13/24 07/03/25 thiamine HCl (vitamin B1) 100 mg 200 mg PO DAILY 12/13/24 07/03/25 tablet magnesium oxide 400 mg (241.3 mg 400 mg PO DAILY 02/12/25 07/03/25 magnesium) tablet melatonin 5 mg tablet 5 - 10 mg PO BEDTIME PRN Sleep 02/12/25 07/03/25 tamsulosin 0.4 mg capsule 0.4 mg PO DAILY 02/12/25 07/03/25 nicotine 21 mg/24 hr daily 1 patch topical DAILY PRN Smoking 04/30/25 07/03/25 transdermal patch Cessation spironolactone 50 mg tablet 50 mg PO DAILY 05/23/25 07/03/25 lorazepam 0.5 mg tablet 0.5 mg PO BID PRN Anxiety 06/05/25 07/03/25 Previous Rx's ?Medication ?Instructions ?Recorded rifaximin 550 mg tablet (Xifaxan) 550 mg PO BID #60 tabs 02/15/25 furosemide 40 mg tablet 40 mg PO DAILY 90 days #90 tabs 04/04/25 lactulose 10 gram/15 mL oral 60 ml PO TID 90 days #16,200 mL 07/09/25 solution Allergies Allergy/AdvReac Type Severity Reaction Status Date / Time fish derived (fish) Allergy Anaphylaxis Verified 07/22/25 10:54 shellfish derived Allergy Anaphylaxis Verified 07/22/25 10:54 Pork/Porcine Containing AdvReac Gastrointestinal Verified 07/22/25 10:54 Products Upset Review of Systems Review of Systems: Yes all other systems are reviewed and are negative PMFSH Past Medical History Medical History Multiple falls Chronic constipation Methadone maintenance therapy patient Alcohol use disorder, severe, dependence Liver failure Alcoholic cirrhosis of liver with ascites Cirrhosis Cirrhosis Edema Alcohol abuse Increased ammonia level Substance abuse Opiate use Social History Social History Household Members: Family Household Members Other:: Brother Housing: House Do you presently have visiting nurse or other home services: No Alcohol intake: current Alcohol intake frequency: 3 or more drinks per day Alcohol type: hard liquor Comment: Pt refusing assistance and alarms Patient Tobacco Use Status: Current someday Tobacco user Tobacco use type: Smokeless Tobacco Cigarette Packs Per Day: 1 Cigarettes Per Day: 20.0 Smoked in Last 30 Days: No e-Cigarette/Vaping Use: Currently Using Use of substances other than those prescribed or required for medical reasons: No Substance Use Type Other:: on methadone Advance Directives: Yes Advance Directives on File: Yes Advance Directives Date on File: 02/18/25 Do you have a plan to hurt others: No Plan service: No Physical Exam ED Vital Signs: Vital Signs - 24 hr 07/22/25 10:49 07/22/25 11:13 07/22/25 14:12 Temperature 97.9 F 98.5 F Pulse Rate 93 69 Respiratory Rate 16 12 Blood Pressure 128/68 126/75 Pulse Oximetry 94 100 Oxygen Delivery Method Room Air Room Air 07/22/25 15:30 Temperature Pulse Rate 69 Respiratory Rate 14 Blood Pressure 135/77 Pulse Oximetry 96 Oxygen Delivery Method Room Air BMI result Body Mass Index 38.3 Const Other: The patient is a 35-year-old male who is awake but seems very drowsy. He responds slowly to questions. He does not seem in pain but he looks somewhat unwell. HENMT Other: The patient has a puffy face. His airway is clear however.. Eyes Other: Some mild scleral icterus, pupils are round equal Neck Neck: Yes normal visual inspection, Yes full ROM, Yes no meningeal signs and Yes no JVD Resp Effort & Inspection: normal respiratory effort Auscultation: clear to auscultation bilaterally Cardio Rate: regular rate Rhythm: regular rhythm Heart sounds: S1 normal heart sound present and S2 normal heart sound present GI Other: Abdomen is soft and seems nontender. Skin Other: The skin may be mildly jaundiced. Neuro Other: The patient is awake but seems drowsy. He answers questions very slowly. Pupils are round equal, extraocular movements are intact, the face is symmetrical, his speech is slow but I do not think there is a aphasia or dysarthria. He seems to have symmetrical strength in his extremities. He has positive asterixis. General: no meningeal signs Extrem Other: He has some mild edema of his lower extremities Course Course Course Narrative: Rapid medical examination performed in triage by Catrachita Esteban PA-C. Patient is a 35 year old assigned male at presenting to the emergency department stating that he doesn't feel well. Patient states that he was at the methadone clinic and they refused to dose him because he didn't look good . Detailed physical exam and review of systems are deferred to the mobile home servicer. Labs ordered. Patient placed back in the waiting room pending room availability and results. Medications Administered Generic Name Dose Route Start Last Admin Trade Name Freq PRN Reason Stop Dose Admin Lactulose 20 gm 07/22/25 15:30 07/22/25 15:42 Lactulose 20 Gm/30 Ml Solution PO Not Given Q4H LU Discontinued Medications Generic Name Dose Route Start Last Admin Trade Name Freq PRN Reason Stop Dose Admin Sodium Chloride 1,000 mls @ 999 mls/hr 07/22/25 12:45 07/22/25 14:14 Ns IV 07/22/25 13:45 Infused .Q1H1M LU Infusion Lactulose 60 gm 07/22/25 14:47 07/22/25 15:03 Lactulose 20 Gm/30 Ml Solution PO 07/22/25 14:48 60 gm ONCE ONE Administration Rifaximin 550 mg 07/22/25 12:39 07/22/25 12:49 Rifaximin 550 Mg Tablet PO 07/22/25 12:40 550 mg ONCE ONE Administration Medical Decision Making Medical Decision Making [facility] Narrative: The patient is a 35-year-old male with a chronic liver disease and a history of elevated ammonia levels who also has a history of opioid use disorder and is on methadone. Today he went to the methadone clinic to get his usual dose but the methadone clinic felt that he seemed to unwell to be given his dose so he was referred to the emergency room. He arrived here by private vehicle. Here he seems quite slow to respond although he has an otherwise nonfocal neurological exam except for the presence of asterixis. His ammonia level is 112. I suspect that he is experiencing some degree of hepatic encephalopathy. I ordered rifaximin and lactulose. Since he seems quite drowsy and since I do not feel that he has a very reliable follow up I have recommended that he be admitted to the hospitalist service. Lab Data 07/22/25 11:27 07/22/25 11:27 Labs: Lab Results 07/22/25 Range/Units 11:27 WBC 3.3 L (4.8-10.8) X10*3/uL RBC 3.70 L (4.60-5.80) X10*6/uL Hgb 11.9 L (14.0-18.0) g/dl Hct 35.6 L (42.0-52.0) % MCV 96.2 (80.0-98.0) fL MCH 32.2 (27.0-33.0) pg MCHC 33.4 (31.0-36.0) g/dl RDW 17.5 H (11.0-16.0) % Plt Count 52 L D (160-400) X10*3/uL MPV 10.0 (9.4-12.4) fL Immature Gran % (Auto) 0.0 (0.0-0.4) % Neut % (Auto) 64.5 (45-73) % Lymph % (Auto) 29.2 (20-40) % Wise % (Auto) 4.8 (2-11) % Eos % (Auto) 0.9 (0-4) % Baso % (Auto) 0.6 (0-2) % Lymph # (Auto) 1.0 L (1.2-4.9) X10*3/uL Wise # (Auto) 0.2 (0.1-1.2) X10*3/uL Eos # (Auto) 0.0 (0.0-0.4) X10*3/uL Baso # (Auto) 0.0 (0.0-0.2) X10*3/uL Abs Immat Gran (auto) 0.00 (0.00-0.03) X10*3/uL Absolute Neuts (auto) 2.1 (2.0-8.3) x10*3/uL Absolute Nucleated RBC 0.000 (0.0-0.012) X10*3/uL Nucleated RBC % (auto) 0.0 (0.0-0.2) /100WBC ESR 21 H (0-15) MM/HR Sodium 139 (135-145) mmol/L Potassium 4.2 D (3.3-5.1) mmol/L Chloride 104 (96-108) mmol/L Carbon Dioxide 28 (22-29) mmol/L Anion Gap 11 L (12-20) BUN 8 L (9-16) mg/dL Creatinine 0.64 (0.5-1.4) mg/dL Estim Creat Clear Calc 180.8 Estimated GFR > 60 Random Glucose 94 (60-115) mg/dL Calcium 8.8 D (8.4-10.2) mg/dL Magnesium 1.8 (1.6-2.6) mg/dL Total Bilirubin 5.5 H (0.0-1.0) mg/dL AST 146 H (5-37) U/L ALT 45 H (0-40) U/L Alkaline Phosphatase 195 H (39-117) U/L Ammonia 112 H (13-55) umol/L Troponin I High Sens < 2.7 (<3.5-35.0) ng/L C-Reactive Protein 1.19 H (< or = 0.50) mg/dL Total Protein 6.9 (6.5-8.0) g/dL Albumin 3.2 L (3.5-5.0) g/dL COVID-19 (JOCY) Negative (Negative) COVID-19 Clin Com See Note Influenza Type A (NADEEM) Negative (Negative) Influenza Type A (PCR) NEGATIVE (Negative) Influenza Type B (NADEEM) Negative (Negative) Influenza Type B (PCR) NEGATIVE (Negative) Influenza A & B Note See Note RSV RNA Qual (PCR) NEGATIVE (Negative) SARS-CoV-2 RNA (RT-PCR) NEGATIVE (Negative) Discharge Plan Discharge Clinical Impression: Acute hepatic encephalopathy, Opioid use disorder
--- NOTE | 2025-07-22 10:50 | ECG_ITS ---
Test Reason : WEAKNESS Blood Pressure : */* mmHG Vent. Rate : 78 BPM Atrial Rate : 78 BPM P-R Int : 166 ms QRS Dur : 78 ms QT Int : 508 ms P-R-T Axes : 37 29 44 degrees QTcB Int : 579 ms Normal sinus rhythm Anterior infarct , age undetermined Abnormal ECG When compared with ECG of 07-Jun-2025 07:52, QT has lengthened Referred By: Catrachita Esteban Electronically Signed By: Blake Raymundo
[2025-07-22 11:13] VITALS: TEMP 36.9
--- NOTE | 2025-07-22 11:14 | PC.NURSE ---
pt refusing rectal temperature, attempted to convince patient.
--- OUTSIDE RECORDS SUMMARY | 2025-07-22 11:20 | XMS_ITS | Clinical Summary ---
Author Organization [facility] Address [address] [place] [address] Phone Care Team Providers Care Wig Comber Name Role Phone Kim Lemus MD Primary Care Provider [phone] Allergies Active Allergy Reactions Criticality Noted Date [...] Noted Date Diagnosed Date Acute hepatic encephalopathy ([facility]/HCC V24, [facility]/ CC V28) 02/25/2025 Hepatic encephalopathy (CMS/HCC V24, [...] use disorder, severe , dependence (CMS/HCC V24, [facility] V28) Severe benzodiazepine use di sorder ([facility] V24, [facility] V28) Opioid dependence on agonist therapy ([facility] V24, [facility] V28) Depression Anxiety Family History [...] for your loved ones. For example, child psychometrist or elderly care for an older adult? [...] Date Recorded What is your living situation? Unrecognized valu e 02/25/2025 Interpersonal Safety Answer Date Record ed Physical Abuse Unrecognized value 02/25/2025 Verbal Abuse Unrecognized value 02/25/2025 Sex and Gender Information Value Date [...] 06/01/2017 06/01/2007, 04/16/2003, 06/03/1996, Additional history exists HPV Vaccines (1 - 3-dose SCDM series) 2018 Cholesterol Screening (Lipid Panel) 09/08/2022 HIV Screening 09/08/2022 Depression Screening 10/10/2024 COVID-19 Vaccine (2 - season) 2025 03/11/2021 Influenza Vaccine (#1) 2025 , 06/24/2020, 07/10/2019, Additional history exists Social Influencers of Health Screening 02/25/2026 02/25/2025 RSV Immunization Adult Patients (1 - 1-dose 75+ series) 2066 HIB Vaccines Aged Out 1991, 11/11, 1991, Additional history exists No longer eligible based on patient's age to complete this topic IPV Vaccines Completed 12/05/1996, 05/11, 1991, Additional history exists MMR Vaccines Completed 12/05/1996, 05/23/1996 Hepatitis B Vaccines Completed 06/11/2004, 04/16/20 03 Meningococcal ACWY Vaccine Completed 06/01/2007 Hepatitis C Screening Completed 07/10/2024 , 07/02/2024, 06/21/2024 Meningococcal B Vaccine Aged Out No l onger eligible based on patient's age to complete this topic RSV Immunization Patients Under 20 months Aged Out No longer eligible based on patient's age to complete this topic Varicella Vaccines Aged Out No longer eligible based on patient's age to complete this topic Insurance [facility] PUBLIC [employer] Advance Directives * Full [...] currently active code status orders. Care Teams Wig Comber Relationship Specialty Start Date End Date Kim Lemus MD [address] [place] [address] [place]aria[place], [place] PCP - General Internal Medicine 05/11/19
--- OUTSIDE RECORDS SUMMARY | 2025-07-22 11:20 | XMS_ITS | Clinical Summary ---
Author Organization [facility] Address [address] [place] [address] Care Team Providers Care Overedger Name Role Phone Emelia Ahn BUS AIDE Primary Care Provider [phone] Source Comments PLEASE NOTE, if this patient [...] 12/03/2015 Overview (12/03/2015): Dx as noted in [facility] records; Reportedly followed [facility] 10/23/08. H/O: substance abuse 11/27/2015 Overview (11/27/2015): Alcohol, Heroin, Xanax and Ativan from streets. Received records from [facility] in [place] where he was admitted for detox 07/2015: Court ordered treatment, had felony charges for drugs. Reportedly he used suboxone in the past but was selling mostly?. He was treated in detox with protocol( also including Hydroxyzine, clonidine, keppra prophylaxis, Remeron, Trazodone prn, Subutex) Depression with anxiety 11/08/2015 Overview (12/03/2015): Inconsistent History. Says that he is now Following with at [facility], [facility]. He brought a letter from his Clinical supervisor riveting at [facility] suggesting that he will benefit from Pharmacotherapy. Per [facility] records prior to 2012, he was on Buspar, Trazodone, Effexor, Clonidine, Ativan. Smoking 11/08/2015 Immunizations Immunization Administration Dates Next Due DTAP (DAPTACEL),5 PERTUSSIS ANTIGENS ,08/05/1992,1991,08/21 HEP B, PED/ADOL ([id number]/RECOMBIVAX-PEDS) 06/11/2004,04/16/2003 Hib (PRP-OMP) (PedvaxHIB) 1991,1991 History Of [...] Plan of Treatment Not on file Insurance [facility] Member Subscriber Plan / Payer (Ef fective 2015-Present) Name:LUCIA RUSSELL Relation to Subscriber:Self Name:Lucia Russell Payer ID:[id number] (NAIC) Type:Indemnity Address: [facility] [id number] MEDICAID DENTAL [facility] SAFETY NET DENTAL Care Teams Overedger Relationship Specialty Start Date End Date Emelia Ahn FNP [facility] [place] [address] PCP - General 12/05/18
--- OUTSIDE RECORDS SUMMARY | 2025-07-22 11:20 | XMS_ITS | Clinical Summary ---
Author Organization [facility] Address [address] [place] [address] Care Team Providers Care Standard Machine Stitcher Name Role Phone Ref, Has No Pcp [...] and Ativan from streets. Received records from [facility] in [place] where he was admitted for detox 07/2015: Court ordered treatment, had felony charges for drugs. Reportedly he used suboxone in the past but was selling mostly?. He was treated in detox with protocol( also including Hydroxyzine, clonidine, keppra prophylaxis, Remeron, Trazodone prn, Subutex) Encounters Date Type Department Care Team Description 05/02/2025 Telephone [facility] [address] [place] [id number] Chinyere Baxter MD from Last 3 [...] Screening Completed 07/10/2024 , 07/02/2024, 06/21/2024 Insurance [facility] MEDICAID Advance Directives Documents on File Type Date Recorded Patient Infrastructure Developer Expl anation Health Care Proxy 02/08/2024 5:53 PM 2023 * Full Code (Latest Code Status on File) Date Activated Date Inactivated Comments 01/23/2024 5:59 PM 02/16/2024 7:48 PM Healthcare Agents on File Name Relationship Healthcare Agent Relationshi p Communication Reny Nicholas Mother Health Care Agent Care Teams Standard Machine Stitcher Relationship Specialty Start Date End Date Ref, Has No Pcp Or DO NOT EDIT THIS RECORD VIA PROVIDER ON THE FLY PCP - General Stock Buyer 02/21/23
--- NOTE | 2025-07-22 11:33 | PC.NURSE ---
35 M presents to ED from methadone clinic after felling unwell, being refused methadone d/t patient looking sick. Pt is jaundice, confused, A+Ox1-[address], sts confusion. RR even and unlabored, denies CP or SOB. Pt normally ambulates.
[2025-07-22 11:34] LABS: MANUAL DIFF FLAG NO
[2025-07-22 11:40] LABS: Hematocrit 35.6 % (42.0-52.0); Hemoglobin 11.9 g/dl (14.0-18.0); Imm Gran Abs Auto 0.00 X10*3/uL (0.00-0.03); Imm Gran Pct Auto 0.0 % (0.0-0.4); Lymphocytes Absolute Auto 1.0 X10*3/uL (1.2-4.9); Mean Corpuscular HGB Conc 33.4 g/dl (31.0-36.0); Mean Corpuscular Hemoglobin 32.2 pg (27.0-33.0); Mean Corpuscular Volume 96.2 fL (80.0-98.0); NRBC Abs Auto 0.000 X10*3/uL (0.0-0.012); NRBC Pct Auto 0.0 /100WBC (0.0-0.2); Red Blood Count 3.70 X10*6/uL (4.60-5.80); White Blood Count 3.3 X10*3/uL (4.8-10.8)
[2025-07-22 11:43] LABS: Platelet Count 52 X10*3/uL (160-400)
[2025-07-22 11:47] LABS: Ammonia 112 umol/L (13-55)
[2025-07-22 11:54] LABS: COVID-19 Test Negative (Negative); IDNOW Serial# 08D9AD1C; IDNOW Serial# 6674DD1D; Influenza B2 Negative (Negative)
[2025-07-22 12:01] LABS: Alanine Aminotransferase 45 U/L (0-40); Albumin Level 3.2 g/dL (3.5-5.0); Alkaline Phosphatase 195 U/L (39-117); Anion Gap 11 (12-20); Aspartate Amino Transferase 146 U/L (5-37); Blood Urea Nitrogen 8 mg/dL (9-16); Calcium 8.8 mg/dL (8.4-10.2); Carbon Dioxide 28 mmol/L (22-29); Chloride 104 mmol/L (96-108); Creatinine Clr Calc Pharmacy 180.8; Estimated Glomerular Filt Rate > 60; Magnesium 1.8 mg/dL (1.6-2.6); Potassium 4.2 mmol/L (3.3-5.1); Sodium 139 mmol/L (135-145); Total Protein 6.9 g/dL (6.5-8.0)
[2025-07-22 12:06] LABS: Troponin-I High Sensitivity < 2.7 ng/L (<3.5-35.0)
[2025-07-22 12:15] LABS: Resp Syncy Virus RNA Qual PCR NEGATIVE (Negative); SARS COV2 PCR INHOUSE NEGATIVE (Negative)
[2025-07-22 14:12] VITALS: BP 126/75; PULSE 69; RESP 12; O2SAT 100
--- NOTE | 2025-07-22 14:48 | HE.PHANOTE ---
Methadone confirmation form received Patient takes 90 mg from [facility] last dose 90mg on 07/15
--- NOTE | 2025-07-22 15:22 | PM.IMHP ---
History of Present Illness Date of Service: 07/22/25 Chief Complaint: ams 35M PMH HCV/etoh cirrhosis, opiate dependence on methadone, obesity, alcohol dependence presented with altered mental status. patient was at his methadone clinic and they did not give him medication as he looked jittery and confused. Patient states that he has been compliant with lactulose though this is unreliable. Says he had 2 bowel movements yesterday but does not remember before that. He feels more confused and foggy. Denies abdominal pain, fever, chills, shortness of breath. Was admitted to [facility] [place] 07/03/25-07/08/25 for hepatic encephalpathy, at that time was discharged at baseline mental status, ambulating with minimal tremor, ammonia in low 80s. Review of Systems Review of Systems: Yes all other systems are reviewed and are negative [facility] Medical History Multiple falls Chronic constipation Methadone maintenance therapy patient Alcohol use disorder, severe, dependence Liver failure Alcoholic cirrhosis of liver with ascites Cirrhosis Cirrhosis Edema Alcohol abuse Increased ammonia level Substance abuse Opiate use Social History Household Members: Family Household Members Other:: Brother Housing: House Do you presently have visiting nurse or other home services: No Alcohol intake: current Alcohol intake frequency: 3 or more drinks per day Alcohol type: hard liquor Comment: Pt refusing assistance and alarms Patient Tobacco Use Status: Current someday Tobacco user Tobacco use type: Smokeless Tobacco Cigarette Packs Per Day: 1 Cigarettes Per Day: 20.0 Smoked in Last 30 Days: No e-Cigarette/Vaping Use: Currently Using Use of substances other than those prescribed or required for medical reasons: No Substance Use Type Other:: on methadone Advance Directives: Yes Advance Directives on File: Yes Advance Directives Date on File: 02/18/25 Do you have a plan to hurt others: No Plan service: No Meds Allergies Allergy/AdvReac Type Severity Reaction Status Date / Time fish derived (fish) Allergy Anaphylaxis Verified 07/22/25 10:54 shellfish derived Allergy Anaphylaxis Verified 07/22/25 10:54 Pork/Porcine Containing AdvReac Gastrointestinal Verified 07/22/25 10:54 Products Upset Active Medications: Current Medications Acetaminophen (Acetaminophen 325 Mg Tablet) 650 mg PO Q6H PRN PRN Reason: Pain, Mild 1-3,fever,headache Calcium Carbonate (Calcium Carbonate 750 Mg Tab.Chew) 750 mg PO Q4H PRN PRN Reason: Heartburn Magnesium Hydroxide (Milk Of Magnesia 30 Ml Oral.Susp) 30 ml PO DAILY PRN PRN Reason: Constipation Melatonin (Melatonin 3 Mg Tablet) 6 mg PO BEDTIME PRN PRN Reason: Insomnia Sodium Chloride (0.9 % Sodium Chloride Flush 3 Ml Syringe) 3 ml IVFLUSH [facility] Medications ?Medication ?Instructions ?Recorded ?Confirmed ?Last Taken ?Type methadone 10 mg/mL oral concentrate 90 mg PO DAILY 03/03/24 07/03/25 07/02/25 History clonidine HCl 0.1 mg tablet 0.1 mg PO TID 12/13/24 07/03/25 04/28/25 History gabapentin 800 mg tablet 800 mg PO TID 12/13/24 07/03/25 04/28/25 History sertraline 100 mg tablet 100 mg PO DAILY 12/13/24 07/03/25 04/28/25 History thiamine HCl (vitamin B1) 100 mg 200 mg PO DAILY 12/13/24 07/03/25 04/28/25 History tablet magnesium oxide 400 mg (241.3 mg 400 mg PO DAILY 02/12/25 07/03/25 04/28/25 History magnesium) tablet melatonin 5 mg tablet 5 - 10 mg PO BEDTIME PRN Sleep 02/12/25 07/03/25 04/28/25 History tamsulosin 0.4 mg capsule 0.4 mg PO DAILY 02/12/25 07/03/25 04/28/25 History nicotine 21 mg/24 hr daily 1 patch topical DAILY PRN Smoking 04/30/25 07/03/25 Unknown History transdermal patch Cessation spironolactone 50 mg tablet 50 mg PO DAILY 05/23/25 07/03/25 Unknown History lorazepam 0.5 mg tablet 0.5 mg PO BID PRN Anxiety 06/05/25 07/03/25 Unknown History Physical Exam Vital Signs and Narrative: Vital Signs: Last Vital Signs Temp 98.5 F 07/22/25 11:13 Pulse 69 07/22/25 14:12 Resp 12 07/22/25 14:12 BP 126/75 07/22/25 14:12 Pulse Ox 100 07/22/25 14:12 O2 Del Method Room Air 07/22/25 14:12 BMI result Body Mass Index 38.3 General: AO X 3, ill appearing, jaundiced Resp: CTA bilateral, no accessory muscles used CVS: S1,S2,RRR GI: soft, non tender, non distended Neuro: asterixis, grossly weak Psych: appropriate affect, appropriate insight Results Labs 07/22/25 11:27 07/22/25 11:27 Labs: Laboratory Results - last 24 hr 07/22/25 11:27 MCV 96.2 MCH 32.2 MCHC 33.4 RDW 17.5 H Plt Count 52 L D MPV 10.0 Immature Gran % (Auto) 0.0 Neut % (Auto) 64.5 Lymph % (Auto) 29.2 [place] % (Auto) 4.8 Eos % (Auto) 0.9 Baso % (Auto) 0.6 Lymph # (Auto) 1.0 L [place] # (Auto) 0.2 Eos # (Auto) 0.0 Baso # (Auto) 0.0 Abs Immat Gran (auto) 0.00 Absolute Neuts (auto) 2.1 Absolute Nucleated RBC 0.000 Nucleated RBC % (auto) 0.0 ESR 21 H Anion Gap 11 L Estim Creat Clear Calc 180.8 Estimated GFR > 60 Random Glucose 94 Calcium 8.8 D Magnesium 1.8 Total Bilirubin 5.5 H AST 146 H ALT 45 H Alkaline Phosphatase 195 H Ammonia 112 H Troponin I High Sens < 2.7 C-Reactive Protein 1.19 H Total Protein 6.9 Albumin 3.2 L COVID-19 (JOCY) Negative COVID-19 Clin Com See Note Influenza Type A (NADEEM) Negative Influenza Type A (PCR) NEGATIVE Influenza Type B (NADEEM) Negative Influenza Type B (PCR) NEGATIVE Influenza A & B Note See Note RSV RNA Qual (PCR) NEGATIVE SARS-CoV-2 RNA (RT-PCR) NEGATIVE Assessment and Plan (1) Alcohol use disorder: Status: Acute Plan 35M PMH HCV/etoh cirrhosis, opiate dependence on methadone, obesity, alcohol dependence presented with altered mental status Acute metabolic encephalopathy due to hepatic encephalopathy due to HCV/alcoholic cirrhosis suspected recurrence due to noncompliant with lactulose titrate lactulose for 2-4bm/day rifaximin etoh dependence monitor [facility] opiate dependence addiction eval chronic pancytopenia due to cirrhosis dvt prophylaxis - mechanical due to thrombocytopenia full code Given the extent of encephalopathy worse from baseline expected to require at least 2 midnights inpatient to improve Quality Stroke Does the patient have a stroke diagnosis?: No VTE Prior VTE?: No VTE Risk Level:: Medical - moderate - high VTE Device Contraindication: N/A - Device Ordered VTE Drug Contraindication: Treatment Not Tolerated
[2025-07-22 15:30] VITALS: BP 135/77; PULSE 69; RESP 14; O2SAT 96
--- NOTE | 2025-07-22 15:54 | HO.NURTONUR ---
35 M presents to ED from methadone clinic d/t not feeling well. Pt was not medicated because per staff at [facility], pt appeared lethargic and unwell. Pt c/o not feeling well and feeling confused. A+OX1-[address], jaundice color to skin and eyes. RR even and unlabored, denies CP or SOB. US IV 20G to L upper bicep. Labs: WBC 3.3, hgb 11.9/Hct 35.6, ESR 21, Anion gap 11, Bun 8, Bilirubin 5.5, AST 146, ALT 45, Alkaline phosphatase 195, *Ammonia 112*, c-reactive protein 1.19, Albumin 3.2 ECG: Normal Sinus Admit for hepatic encephalopathy Medicated per MAR
--- NOTE | 2025-07-22 16:13 | PC.NURSE ---
Spoke to HCP Reny to provide update on patient. Reny sts someone will be in tonight and tomorrow night to stop by to check on him. Notifed her that patient is admitted, waiting for a room.
[2025-07-22] MEDS: 0.9 % Sodium Chloride Flush 3 ML SYRINGE IVFLUSH ×2 (16:36→20:25)
--- NOTE | 2025-07-22 16:37 | PC.NURSE ---
pt is resting with eyes closed, responsive to verbal stimuli. Pt continues to be fatigued since arrival. RR even and unlabored, no visible s/s of distress.
--- NOTE | 2025-07-22 17:25 | PHA.MEDREC ---
Addendum entered by Benji Baez [facility] 07/23/25 13:04: Reviewed by [facility] Addendum entered by Anuja Ervin 07/23/25 12:27: patient confirmed Furosimide 40 mg not 20 mg. Addendum entered by Anuja Ervin 07/23/25 12:24: Spoke to patient and he was able to confirm his medications. Patient states he is no longer taking Vitamin B1 200 mg and Xifaxan 550 mg. Patient confirmed Methadone 95 mg from [facility] , last dose was 2 days ago. Original Note: Pharmacy Consult ? Medication Reconciliation Pharmacy has attempted the medication reconciliation x 2. Patient is unarousable. Will continue to attempt to speak to patient until 7 pm tonight. If patient remains unarousable, I will leave a note for AM pharmacist.
[2025-07-22 20:00] VITALS: BP 119/62; PULSE 79; RESP 20; TEMP 37.4; O2SAT 95
[2025-07-22] MEDS: oxyCODONE HCl Immed Release 5 MG TABLET PO (20:22)
[2025-07-22 23:42] VITALS: BP 103/61; PULSE 71; RESP 16; TEMP 36.4; O2SAT 95
[2025-07-23 03:05] VITALS: BP 100/59; PULSE 71; RESP 18; TEMP 36.3; O2SAT 95
[2025-07-23 06:24] LABS: NRBC Abs Auto 0.000 X10*3/uL (0.0-0.012); NRBC Pct Auto 0.0 /100WBC (0.0-0.2); PLT CLUMP 1
[2025-07-23 06:26] LABS: Hematocrit 35.5 % (42.0-52.0); Hemoglobin 11.8 g/dl (14.0-18.0); Mean Corpuscular HGB Conc 33.2 g/dl (31.0-36.0); Mean Corpuscular Hemoglobin 32.2 pg (27.0-33.0); Mean Corpuscular Volume 96.7 fL (80.0-98.0); Platelet Count 48 X10*3/uL (160-400); Red Blood Count 3.67 X10*6/uL (4.60-5.80); White Blood Count 2.7 X10*3/uL (4.8-10.8)
[2025-07-23 06:41] LABS: Alanine Aminotransferase 45 U/L (0-40); Albumin Level 3.1 g/dL (3.5-5.0); Anion Gap 11 (12-20); Aspartate Amino Transferase 137 U/L (5-37); Blood Urea Nitrogen 7 mg/dL (9-16); Calcium 8.4 mg/dL (8.4-10.2); Carbon Dioxide 29 mmol/L (22-29); Chloride 106 mmol/L (96-108); Creatinine Clr Calc Pharmacy 196.2; Estimated Glomerular Filt Rate > 60; Magnesium 1.8 mg/dL (1.6-2.6); Potassium 3.5 mmol/L (3.3-5.1); Sodium 142 mmol/L (135-145); Total Protein 6.8 g/dL (6.5-8.0)
[2025-07-23 06:47] LABS: Alkaline Phosphatase 190 U/L (39-117)
[2025-07-23 08:00] VITALS: BP 107/64; PULSE 64; RESP 18; TEMP 36.7; O2SAT 92
[2025-07-23] MEDS: 0.9 % Sodium Chloride Flush 3 ML SYRINGE IVFLUSH ×2 (09:34→20:55)
--- NOTE | 2025-07-23 09:51 | MHC.CM.PN ---
CM met with Patient at bedside;Patient fell back to sleep prior to CM completing the first question. Patient recently here and from chart review, Patient lives with his Parents and his Mother/HCP/Reny will transport to home at time of dc. Patient lives with his Parent, is functionally independent, and receives his Methadone from [facility]. Patient may benefit from a Recovery Team Consult to assist with disposition. CM has initiated and will follow for dc planning. PCP is Dr. Stephen Esquivel.
--- NOTE | 2025-07-23 09:53 | P.PNIM_ITS ---
Subjective Subjective Date of Service: 07/23/25 Interval History: had many BMs overnight Physical Exam 2 Exam: Exam: lethargic oriented time 3, jaundiced, asterixis, abd soft non distended Vital Signs: Vital Signs: Last Vital Signs Temp 98.0 F 07/23/25 08:00 Pulse 64 07/23/25 08:00 Resp 18 07/23/25 08:00 BP 107/64 07/23/25 08:00 Pulse Ox 92 07/23/25 08:00 O2 Del Method Room Air 07/23/25 08:00 BMI result Body Mass Index 38.3 Objective Data Active Medications Acetaminophen (Acetaminophen 325 Mg Tablet) 650 mg PO Q6H PRN PRN Reason: Pain, Mild 1-3,fever,headache Calcium Carbonate (Calcium Carbonate 750 Mg Tab.Chew) 750 mg PO Q4H PRN PRN Reason: Heartburn Lactulose (Lactulose 20 Gm/30 Ml Solution) 20 gm PO Q4H [facility] Last Admin: 07/23/25 07:45 Dose: Not Given Documented By: UVALDO Non-Admin Reason: Patient Refused Lorazepam (Lorazepam 0.5 Mg Tablet) 0.5 mg PO BID PRN PRN Reason: Anxiety Last Admin: 07/22/25 20:22 Dose: 0.5 mg Documented By: RON Magnesium Hydroxide (Milk Of Magnesia 30 Ml Oral.Susp) 30 ml PO DAILY PRN PRN Reason: Constipation Melatonin (Melatonin 3 Mg Tablet) 6 mg PO BEDTIME PRN PRN Reason: Insomnia Rifaximin (Rifaximin 550 Mg Tablet) 550 mg PO BID [facility] Last Admin: 07/23/25 09:33 Dose: 550 mg Documented By: UVALDO Sodium Chloride (0.9 % Sodium Chloride Flush 3 Ml Syringe) 3 ml IVFLUSH QSHIFT [facility] Last Admin: 07/23/25 09:34 Dose: 3 ml Documented By: UVALDO Labs 07/23/25 05:53 07/23/25 05:53 Labs: Laboratory Results - last 24 hr 07/22/25 07/23/25 11:27 05:53 MCV 96.2 96.7 MCH 32.2 32.2 MCHC 33.4 33.2 RDW 17.5 H 17.4 H Plt Count 52 L D 48 L MPV 10.0 11.2 Immature Gran % (Auto) 0.0 Neut % (Auto) 64.5 Lymph % (Auto) 29.2 [place] % (Auto) 4.8 Eos % (Auto) 0.9 Baso % (Auto) 0.6 Lymph # (Auto) 1.0 L [place] # (Auto) 0.2 Eos # (Auto) 0.0 Baso # (Auto) 0.0 Abs Immat Gran (auto) 0.00 Absolute Neuts (auto) 2.1 Absolute Nucleated RBC 0.000 0.000 Nucleated RBC % (auto) 0.0 0.0 ESR 21 H Anion Gap 11 L 11 L Estim Creat Clear Calc 180.8 196.2 Estimated GFR > 60 > 60 Random Glucose 94 82 Calcium 8.8 D 8.4 Magnesium 1.8 1.8 Total Bilirubin 5.5 H 7.4 H Direct Bilirubin 4.4 H AST 146 H 137 H ALT 45 H 45 H Alkaline Phosphatase 195 H 190 H Ammonia 112 H Troponin I High Sens < 2.7 C-Reactive Protein 1.19 H Total Protein 6.9 6.8 Albumin 3.2 L 3.1 L COVID-19 (JOCY) Negative COVID-19 Clin Com See Note Influenza Type A (NADEEM) Negative Influenza Type A (PCR) NEGATIVE Influenza Type B (NADEEM) Negative Influenza Type B (PCR) NEGATIVE Influenza A & B Note See Note RSV RNA Qual (PCR) NEGATIVE SARS-CoV-2 RNA (RT-PCR) NEGATIVE Assessment and Plan (1) Alcohol use disorder: Status: Acute Plan 35M PMH HCV/etoh cirrhosis, opiate dependence on methadone, obesity, alcohol dependence presented with altered mental status Acute metabolic encephalopathy due to hepatic encephalopathy due to HCV/alcoholic cirrhosis suspected recurrence due to noncompliant with lactulose titrate lactulose for 2-4bm/day rifaximin still appears more encephalopathic than baseline etoh dependence monitor [place]wa, so far no signs of withdrawal opiate dependence addiction eval, methadone chronic pancytopenia due to cirrhosis dvt prophylaxis - mechanical due to thrombocytopenia full code reason for continued hospitalization:still encephalopathic Quality Stroke Does the patient have a stroke diagnosis?: No VTE Prior VTE?: No VTE Risk Level:: Medical - moderate - high VTE Device Contraindication: N/A - Device Ordered VTE Drug Contraindication: Treatment Not Tolerated
[2025-07-23 12:00] VITALS: BP 122/67; PULSE 67; RESP 20; TEMP 36.9; O2SAT 95
--- NOTE | 2025-07-23 13:31 | P.DS_ITS ---
DS: Providers Provider Date of Service: 07/23/25 Date of admission: 07/22/25 15:55 Date of discharge: 07/23/25 Primary care physician: Stephen Biggs MD Consults: 07/22/25 15:20 Addiction Medicine Provider Routine Consulting Provider: Addiction Covering Reason for consultation: opiate, etoh DS: Diagnosis Discharge Diagnosis (1) Alcohol use disorder: Status: Acute DS: Summary Hospital Course Hospital Course: from initial hpi: 35M PMH HCV/etoh cirrhosis, opiate dependence on methadone, obesity, alcohol dependence presented with altered mental status. patient was at his methadone clinic and they did not give him medication as he looked jittery and confused. Patient states that he has been compliant with lactulose though this is unreliable. Says he had 2 bowel movements yesterday but does not remember before that. He feels more confused and foggy. Denies abdominal pain, fever, chills, shortness of breath. Was [place] [facility] [place]08[place] for hepatic encephalpathy, at that time was discharged at baseline mental status, ambulating with minimal tremor, ammonia in low 80s. currently 112. hospital course: Patient was admitted for acute metabolic encephalopathy due to hepatic encephalopathy due to HCV/alcoholic cirrhosis suspected recurrence due to noncompliance with lactulose. Was given lactulose and started to have some bowel movements also given rifaximin. Patient got a little bit better but is still appears more encephalopathic than baseline. However, patient decided to leave against medical advice. He has with an enough to be able to demonstrate understanding of the risks of doing so including . For alcohol dependency did not show any sign of withdrawal. For opiate dependence addiction eval was pending. For chronic pancytopenia this is due to cirrhosis. Time Attestation Discharge Coordination Time (in mins): 33 Quality: Safe Use of Opioids Does Pt have an Active Cancer Diagnosis on the Problem List?: No Quality: Stroke Does the patient have a stroke diagnosis?: No Physical Exam Exam: Exam: lethargic oriented time 3, jaundiced, asterixis, abd soft non distended Vital Signs: Vital Signs: Last Vital Signs Temp 98.4 F 07/23/25 12:00 Pulse 67 07/23/25 12:00 Resp 20 07/23/25 12:00 BP 122/67 07/23/25 12:00 Pulse Ox 95 07/23/25 12:00 O2 Del Method Room Air 07/23/25 12:00 BMI result Body Mass Index 38.3 DS: Data Data Completed and Pending Completed studies during hospitalization [Text1]: Procedures Detoxification Services for Substance Abuse Treatment (12/13/24) Labs on day of discharge: Laboratory Results - last 24 hr 07/23/25 05:53 WBC 2.7 L RBC 3.67 L Hgb 11.8 L Hct 35.5 L MCV 96.7 MCH 32.2 MCHC 33.2 RDW 17.4 H Plt Count 48 L MPV 11.2 Absolute Nucleated RBC 0.000 Nucleated RBC % (auto) 0.0 Sodium 142 Potassium 3.5 Chloride 106 Carbon Dioxide 29 Anion Gap 11 L BUN 7 L Creatinine 0.59 Estim Creat Clear Calc 196.2 Estimated GFR > 60 Random Glucose 82 Calcium 8.4 Magnesium 1.8 Total Bilirubin 7.4 H Direct Bilirubin 4.4 H AST 137 H ALT 45 H Alkaline Phosphatase 190 H Total Protein 6.8 Albumin 3.1 L Discharge Plan Discharge Anticipated Discharge Date/Time: 07/23/25 13:29 Patient Disposition: Left Against Medical Advice Discharge Diagnosis: Hepatic encephalopathy Referrals: Stephen Biggs MD [Primary Care Provider, Internal Medicine] - 1 Week Discharge Medications: Continued methadone 10 mg/mL Concentrate 90 mg PO DAILY Rx Instructions: [facility] [phone] clonidine HCl 0.1 mg tablet 0.1 mg PO TID sertraline 100 mg tablet 100 mg PO DAILY gabapentin 800 mg tablet 800 mg PO TID spironolactone 50 mg tablet 50 mg PO DAILY lorazepam 0.5 mg tablet 0.5 mg PO BID PRN (Reason: Anxiety) magnesium oxide 400 mg (241.3 mg magnesium) tablet 400 mg PO DAILY tamsulosin 0.4 mg capsule 0.4 mg PO DAILY melatonin 5 mg Tablet 5 - 10 mg PO BEDTIME PRN (Reason: Sleep) nicotine 21 mg/24 hr patch 24 hour 1 patch topical DAILY PRN (Reason: Smoking Cessation) lactulose 10 gram/15 mL solution 60 ml PO TID 90 Days Qty: [id number] 0RF furosemide 20 mg tablet 40 mg PO DAILY Discharge Orders: Discharge Order (Routine); Ordered 07/23/25 Ordered By: Gagandeep Sandra Diet: Advance to usual diet Activity on Discharge: As tolerated Print Language: Montenegrin Care Plan Goals: Manage encephalopathy Health Concerns: Hepatic encephalopathy, continued alcohol use, noncompliance Plan of Treatment: Cannot properly treat of the hospital but recommend avoiding alcohol use and taking lactulose as recommended Assessment: See above
[2025-07-23] MEDS: methADONE HCl 20 MG/2 ML ORAL.CONC 40 MG PO (13:44)
--- NOTE | 2025-07-23 14:10 | HO.ADDICTCON ---
History of Present Illness Date of Service: 07/23/2025 Chief Complaint: hepatic enceph Reason for Consult: AUD Sources of Information: chart reviewed HPI Narrative: Information obtained via chart review as patient unable to remain awake beyong answering simple questions. Patient is a 35 year old male with AUD and liver cirrhosis who is medically admitted with hepatic encephalopathy. He was at his [facility] and presented as confused and tremulous, and referred to ED for evaluation. Patient is known to this automobile and property underwriter via previous admissions, for similar presentations. At admission ammonia level is 112. Patient reported taking lactulose with regularity, however this seems unlikely, based on presentation. UDS and ETOH level not completed. Last dose of methadone noted to be 07/15 at 90mg QD. Unclear if patient has been receiving methadone elsewhere since 07/15 as he is often seen in various hospitals in this area. CIWA scores have been low 2's When seen by this automobile and property underwriter he is sleeping, wakes to voice, but falls back to sleep rather quickly. He denied any pain or withdrawal sx, when asked by t/w. He appeared well kempt, no diaphoresis or restlessness noted. He is jaundiced. Vital signs have been WNL he was seen by expert witness and he stated he last had alcohol 7 days ago-father present at that time, and he reportedly disputed this report, feeling that it had been more recent. T/w spoke with provider at [facility] regarding methadone dosing as patient continues to present as somnolent each presentation, with very brief periods of wakefulness. Agreeable to dose reduction as appropriate based on patient presentation. Medical Evaluation Reviewed: Yes Review of Systems Constitutional: Reports as per HPI (limited due to somnolence ) Diagnostics Vital Signs (24Hr): Vital Signs - 24 hr 07/22/25 14:12 07/22/25 15:30 07/22/25 20:00 Temperature 99.3 F Pulse Rate 69 69 79 Respiratory Rate 12 14 20 Blood Pressure 126/75 135/77 119/62 Pulse Oximetry 100 96 95 Oxygen Delivery Method Room Air Room Air Room Air 07/22/25 23:42 07/23/25 03:05 07/23/25 08:00 Temperature 97.6 F 97.4 F 98.0 F Pulse Rate 71 71 64 Respiratory Rate 16 18 18 Blood Pressure 103/61 100/59 L 107/64 Pulse Oximetry 95 95 92 Oxygen Delivery Method Room Air Room Air Room Air 07/23/25 12:00 Temperature 98.4 F Pulse Rate 67 Respiratory Rate 20 Blood Pressure 122/67 Pulse Oximetry 95 Oxygen Delivery Method Room Air BMI result Body Mass Index 38.3 Labs 07/23/25 05:53 07/23/25 05:53 Labs: Laboratory Results - last 48 hr 07/22/25 07/23/25 11:27 05:53 WBC 3.3 L 2.7 L RBC 3.70 L 3.67 L Hgb 11.9 L 11.8 L Hct 35.6 L 35.5 L MCV 96.2 96.7 MCH 32.2 32.2 MCHC 33.4 33.2 RDW 17.5 H 17.4 H Plt Count 52 L D 48 L MPV 10.0 11.2 Immature Gran % (Auto) 0.0 Neut % (Auto) 64.5 Lymph % (Auto) 29.2 Anson % (Auto) 4.8 Eos % (Auto) 0.9 Baso % (Auto) 0.6 Lymph # (Auto) 1.0 L Anson # (Auto) 0.2 Eos # (Auto) 0.0 Baso # (Auto) 0.0 Abs Immat Gran (auto) 0.00 Absolute Neuts (auto) 2.1 Absolute Nucleated RBC 0.000 0.000 Nucleated RBC % (auto) 0.0 0.0 ESR 21 H Sodium 139 142 Potassium 4.2 D 3.5 Chloride 104 106 Carbon Dioxide 28 29 Anion Gap 11 L 11 L BUN 8 L 7 L Creatinine 0.64 0.59 Estim Creat Clear Calc 180.8 196.2 Estimated GFR > 60 > 60 Random Glucose 94 82 Calcium 8.8 D 8.4 Magnesium 1.8 1.8 Total Bilirubin 5.5 H 7.4 H Direct Bilirubin 4.4 H AST 146 H 137 H ALT 45 H 45 H Alkaline Phosphatase 195 H 190 H Ammonia 112 H Troponin I High Sens < 2.7 C-Reactive Protein 1.19 H Total Protein 6.9 6.8 Albumin 3.2 L 3.1 L COVID-19 ([facility]) Negative COVID-19 Clin Com See Note Influenza Type A ([facility]) Negative Influenza Type A (PCR) NEGATIVE Influenza Type B ([facility]) Negative Influenza Type B (PCR) NEGATIVE Influenza A & B Note See Note RSV RNA Qual (PCR) NEGATIVE SARS-CoV-2 RNA (RT-PCR) NEGATIVE Mental Status Exam Mental Status Exam Patient Appearance: Well Grooomed Level of Consciousness: Drowsy Patient Behavior: Asleep Medications Medications Current Medications Acetaminophen (Acetaminophen 325 Mg Tablet) 650 mg PO Q6H PRN PRN Reason: Pain, Mild 1-3,fever,headache Calcium Carbonate (Calcium Carbonate 750 Mg Tab.Chew) 750 mg PO Q4H PRN PRN Reason: Heartburn Clonidine HCl (Clonidine Hcl 0.1 Mg Tablet) 0.1 mg PO TID [facility]; Protocol Last Admin: 07/23/25 13:44 Dose: 0.1 mg Furosemide (Furosemide 40 Mg Tablet) 40 mg PO DAILY [facility]; Protocol Gabapentin (Gabapentin 400 Mg Capsule) 800 mg PO TID [facility] Last Admin: 07/23/25 13:44 Dose: 800 mg Lactulose (Lactulose 20 Gm/30 Ml Solution) 20 gm PO Q4H [facility] Last Admin: 07/23/25 11:38 Dose: Not Given Lorazepam (Lorazepam 0.5 Mg Tablet) 0.5 mg PO BID PRN PRN Reason: Anxiety Last Admin: 07/23/25 13:11 Dose: 0.5 mg Magnesium Hydroxide (Milk Of Magnesia 30 Ml Oral.Susp) 30 ml PO DAILY PRN PRN Reason: Constipation Magnesium Oxide (Magnesium Oxide 400 Mg Tablet) 400 mg PO DAILY [facility] Melatonin (Melatonin 3 Mg Tablet) 6 mg PO BEDTIME PRN PRN Reason: Insomnia Methadone HCl (Methadone Hcl 20 Mg/2 Ml Oral.Conc) 40 mg PO DAILY@0800 [facility] Last Admin: 07/23/25 13:44 Dose: 40 mg Rifaximin (Rifaximin 550 Mg Tablet) 550 mg PO BID [facility] Last Admin: 07/23/25 09:33 Dose: 550 mg Sertraline HCl (Sertraline Hcl 100 Mg Tablet) 100 mg PO DAILY [facility] Sodium Chloride (0.9 % Sodium Chloride Flush 3 Ml Syringe) 3 ml IVFLUSH QSHIFT [facility] Last Admin: 07/23/25 09:34 Dose: 3 ml Spironolactone (Spironolactone 25 Mg Tablet) 50 mg PO DAILY [facility]; Protocol Tamsulosin HCl (Tamsulosin Hcl 0.4 Mg Capsule) 0.4 mg PO DAILY [facility] Allergies Allergies Allergy/AdvReac Type Severity Reaction Status Date / Time fish derived (fish) Allergy Anaphylaxis Verified 07/22/25 10:54 shellfish derived Allergy Anaphylaxis Verified 07/22/25 10:54 Pork/Porcine Containing AdvReac Gastrointestinal Verified 07/22/25 10:54 Products Upset Assessment & Plan Assessment & Plan (1) Alcohol use disorder: Status: Acute Code(s): F10.90 - Alcohol use, unspecified, uncomplicated Assessment and Plan: no withdrawal noted or reported continue CIWA unable to have any kind of risk reduction discussion due to level of alertness may benefit from ongoing family involvement in current care and ongoing care plan, shea given that patient has not followed up with any recent GI outpt appts. (2) Methadone maintenance therapy patient: Status: Acute Code(s): F11.20 - Opioid dependence, uncomplicated Assessment and Plan: received methadone 40mg today added methadone 15mg QD PRN for any reported withdrawal sx will adjust dosing as appropriate/when patient is more alert Total time managing care of this patient today ____ minutes. PMFSH Past Medical History Medical History Multiple falls Chronic constipation Methadone maintenance therapy patient Alcohol use disorder, severe, dependence Liver failure Alcoholic cirrhosis of liver with ascites Cirrhosis Cirrhosis Edema Alcohol abuse Increased ammonia level Substance abuse Opiate use Social History Social History Household Members: None Household Members Other:: Brother Housing: House Do you presently have visiting nurse or other home services: No Alcohol intake: current Alcohol intake frequency: 3 or more drinks per day Alcohol type: hard liquor Comment: Pt refusing assistance and alarms Patient Tobacco Use Status: Never used Tobacco Tobacco use type: Smokeless Tobacco Cigarette Packs Per Day: 1 Cigarettes Per Day: 20.0 Smoked in Last 30 Days: No e-Cigarette/Vaping Use: Never Used Patient Interested in Nicotine Replacement: No Patient Given Instructions on How to Stop Smoking: No Second Hand Smoke Exposure: No Use of substances other than those prescribed or required for medical reasons: No Substance Use Type Other:: on methadone Currently Displaying Signs/Symptoms of Drug Intoxication Withdrawal: No Have you been hit, kicked, punched, or otherwise hurt by someone within the past year? If so, by whom?: No Do you feel safe in your current relationship?: Yes Is there a partner from a previous relationship who is making you feel unsafe now?: No Are you made to feel afraid or neglected: No Je[employer] Healthcare Practices: n/a Advance Directives: Yes Advance Directives Information Provided: No Advance Directives on File: Yes Advance Directives Date on File: 02/18/25 Do you have a plan to hurt others: No Plan Recently lost weight without trying: No How much weight loss: Not applicable Eating poorly because of decreased appetite: No Nutrition screen score: 0 Nutrition Risks: No Nutritional Risk Poor oral hygiene: No service: No
[2025-07-23 16:00] VITALS: BP 100/70; PULSE 66; RESP 20; TEMP 36.4; O2SAT 92
[2025-07-23 19:15] VITALS: BP 97/55; PULSE 70; RESP 18; TEMP 36.3; O2SAT 96
[2025-07-23 23:51] VITALS: BP 111/62; PULSE 65; RESP 20; TEMP 36.8; O2SAT 97
[2025-07-24 02:54] VITALS: BP 107/60; PULSE 69; RESP 19; TEMP 36.4; O2SAT 95
[2025-07-24 06:36] LABS: Hematocrit 33.0 % (42.0-52.0); Hemoglobin 10.9 g/dl (14.0-18.0); Mean Corpuscular HGB Conc 33.0 g/dl (31.0-36.0); Mean Corpuscular Hemoglobin 32.1 pg (27.0-33.0); Mean Corpuscular Volume 97.1 fL (80.0-98.0); NRBC Abs Auto 0.000 X10*3/uL (0.0-0.012); NRBC Pct Auto 0.0 /100WBC (0.0-0.2); Red Blood Count 3.40 X10*6/uL (4.60-5.80)
[2025-07-24 06:37] LABS: Platelet Count 43 X10*3/uL (160-400); White Blood Count 2.1 X10*3/uL (4.8-10.8)
[2025-07-24 06:46] LABS: Ammonia 97 umol/L (13-55)
[2025-07-24 06:54] LABS: Anion Gap 11 (12-20); Blood Urea Nitrogen 5 mg/dL (9-16); Calcium 8.2 mg/dL (8.4-10.2); Carbon Dioxide 25 mmol/L (22-29); Chloride 106 mmol/L (96-108); Creatinine Clr Calc Pharmacy 189.7; Estimated Glomerular Filt Rate > 60; Magnesium 1.6 mg/dL (1.6-2.6); Potassium 3.3 mmol/L (3.3-5.1); Sodium 139 mmol/L (135-145)
[2025-07-24 07:28] VITALS: BP 105/57; PULSE 62; RESP 20; TEMP 36.3; O2SAT 96
[2025-07-24] MEDS: methADONE HCl 20 MG/2 ML ORAL.CONC 40 MG PO (08:35)
[2025-07-24] MEDS: 0.9 % Sodium Chloride Flush 3 ML SYRINGE IVFLUSH ×3 (08:40→19:40)
[2025-07-24 09:22] LABS: Alanine Aminotransferase 45 U/L (0-40); Albumin Level 2.6 g/dL (3.5-5.0); Alkaline Phosphatase 164 U/L (39-117); Aspartate Amino Transferase 129 U/L (5-37); Total Protein 5.9 g/dL (6.5-8.0)
[2025-07-24 11:14] VITALS: BP 101/55; PULSE 70; RESP 18; TEMP 36.4; O2SAT 97
[2025-07-24 15:41] VITALS: BP 121/58; PULSE 70; RESP 20; TEMP 36.5; O2SAT 95
--- NOTE | 2025-07-24 17:11 | HO.PM.IMPN ---
Subjective Subjective Date of Service: 07/24/25 Interval History: Encephalopathy Review of Systems Mental status somewhat improving, had 1 BM yesterday, 1 today Review of Systems: Yes all other systems are reviewed and are negative Physical Exam Exam: Exam: Appearance: More awake Alert.? Oriented X3.? Generalized weak cvs: rrr, [id number] , no murmur res: clear to auscultation ,no rhonchii or wheezing abd: no rebound or guarding ,nt, bs present. ext pulses present , no cyanosis . neuro: axo3 , nonfocal. Vital Signs: Vital Signs: Last Vital Signs Temp 97.7 F 07/24/25 15:41 Pulse 70 07/24/25 15:41 Resp 20 07/24/25 15:41 BP 121/58 L 07/24/25 15:41 Pulse Ox 95 07/24/25 15:41 O2 Del Method Room Air 07/24/25 15:41 BMI result Body Mass Index 38.3 Objective Data Active Medications Acetaminophen (Acetaminophen 325 Mg Tablet) 650 mg PO Q6H PRN PRN Reason: Pain, Mild 1-3,fever,headache Calcium Carbonate (Calcium Carbonate 750 Mg Tab.Chew) 750 mg PO Q4H PRN PRN Reason: Heartburn Clonidine HCl (Clonidine Hcl 0.1 Mg Tablet) 0.1 mg PO TID [facility]; Protocol Last Admin: 07/24/25 14:47 Dose: 0.1 mg Documented By: UVALDO Furosemide (Furosemide 40 Mg Tablet) 40 mg PO DAILY [facility]; Protocol Last Admin: 07/24/25 08:35 Dose: 40 mg Documented By: UVALDO Gabapentin (Gabapentin 400 Mg Capsule) 800 mg PO TID [facility] Last Admin: 07/24/25 14:47 Dose: 800 mg Documented By: UVALDO Lactulose (Lactulose 20 Gm/30 Ml Solution) 20 gm PO Q4H [facility] Last Admin: 07/24/25 14:47 Dose: 20 gm Documented By: UVALDO Lorazepam (Lorazepam 0.5 Mg Tablet) 0.5 mg PO BID PRN PRN Reason: Anxiety Last Admin: 07/24/25 10:42 Dose: 0.5 mg Documented By: UVALDO Magnesium Hydroxide (Milk Of Magnesia 30 Ml Oral.Susp) 30 ml PO DAILY PRN PRN Reason: Constipation Magnesium Oxide (Magnesium Oxide 400 Mg Tablet) 400 mg PO DAILY [facility] Last Admin: 07/24/25 08:36 Dose: 400 mg Documented By: UVALDO Melatonin (Melatonin 3 Mg Tablet) 6 mg PO BEDTIME PRN PRN Reason: Insomnia Methadone HCl (Methadone Hcl 20 Mg/2 Ml Oral.Conc) 40 mg PO DAILY@0800 [facility] Last Admin: 07/24/25 08:35 Dose: 40 mg Documented By: UVALDO Co-signed By: FREYA Methadone HCl (Methadone Hcl 20 Mg/2 Ml Oral.Conc) 15 mg PO DAILY PRN PRN Reason: Opiate Withdrawal Rifaximin (Rifaximin 550 Mg Tablet) 550 mg PO BID [facility] Last Admin: 07/24/25 08:36 Dose: 550 mg Documented By: UVALDO Sertraline HCl (Sertraline Hcl 100 Mg Tablet) 100 mg PO DAILY [facility] Last Admin: 07/24/25 08:35 Dose: 100 mg Documented By: UVALDO Sodium Chloride (0.9 % Sodium Chloride Flush 3 Ml Syringe) 3 ml IVFLUSH QSHIFT [facility] Last Admin: 07/24/25 14:47 Dose: 3 ml Documented By: UVALDO Spironolactone (Spironolactone 25 Mg Tablet) 50 mg PO DAILY [facility]; Protocol Last Admin: 07/24/25 08:36 Dose: 50 mg Documented By: UVALDO Tamsulosin HCl (Tamsulosin Hcl 0.4 Mg Capsule) 0.4 mg PO DAILY [facility] Last Admin: 07/24/25 08:36 Dose: 0.4 mg Documented By: UVALDO Labs 07/24/25 06:31 07/24/25 06:30 Labs: Laboratory Results - last 24 hr 07/24/25 07/24/25 06:30 06:31 MCV 97.1 MCH 32.1 MCHC 33.0 RDW 17.2 H Plt Count 43 L MPV 11.0 Absolute Nucleated RBC 0.000 Nucleated RBC % (auto) 0.0 Anion Gap 11 L Estim Creat Clear Calc 189.7 Estimated GFR > 60 Random Glucose 145 H Calcium 8.2 L Magnesium 1.6 Total Bilirubin 4.7 H Direct Bilirubin 3.2 H AST 129 H ALT 45 H Alkaline Phosphatase 164 H Ammonia 97 H Total Protein 5.9 L Albumin 2.6 L Assessment and Plan (1) Alcohol use disorder: Status: Acute Plan 35M PMH HCV/etoh cirrhosis, opiate dependence on methadone, obesity, alcohol dependence presented with altered mental status Acute metabolic encephalopathy due to hepatic encephalopathy due to HCV/alcoholic cirrhosis suspected recurrence due to noncompliant with lactulose titrate lactulose for 2-4bm/day rifaximin still appears more encephalopathic than baseline etoh dependence monitor ciwa, so far no signs of withdrawal opiate dependence addiction eval, methadone chronic pancytopenia due to cirrhosis dvt prophylaxis - mechanical due to thrombocytopenia full code reason for continued hospitalization:still encephalopathic Quality Stroke Does the patient have a stroke diagnosis?: No VTE Prior VTE?: No VTE Risk Level:: Medical - moderate - high VTE Device Contraindication: N/A - Device Ordered VTE Drug Contraindication: Treatment Not Tolerated
[2025-07-24 19:20] VITALS: BP 113/55; PULSE 60; RESP 18; TEMP 36.6; O2SAT 98
[2025-07-24 23:14] VITALS: BP 113/63; PULSE 61; RESP 18; TEMP 36.7; O2SAT 96
[2025-07-25 03:16] VITALS: BP 119/69; PULSE 56; RESP 18; TEMP 36.4; O2SAT 97
[2025-07-25 07:17] VITALS: BP 110/62; PULSE 57; RESP 18; TEMP 36.2; O2SAT 97
[2025-07-25] MEDS: 0.9 % Sodium Chloride Flush 3 ML SYRINGE IVFLUSH (07:47)
[2025-07-25] MEDS: methADONE HCl 20 MG/2 ML ORAL.CONC 40 MG PO (07:49)
--- NOTE | 2025-07-25 11:15 | P.DS_ITS ---
DS: Providers Provider Date of Service: 07/25/25 Date of admission: 07/22/25 15:55 Date of discharge: 07/25/25 Primary care physician: Stephen Biggs MD Consults: 07/22/25 15:20 Addiction Medicine Provider Routine Consulting Provider: Addiction Covering Reason for consultation: opiate, etoh Attending physician on discharge: Seth Lucero Discharging clinician: Seth Lucero DS: Diagnosis Discharge Diagnosis (1) Alcohol use disorder: Status: Acute DS: Summary Hospital Course Hospital Course: from initial hpi: 35M PMH HCV/etoh cirrhosis, opiate dependence on methadone, obesity, alcohol dependence presented with altered mental status. patient was at his methadone clinic and they did not give him medication as he looked jittery and confused. Patient states that he has been compliant with lactulose though this is unreliable. Says he had 2 bowel movements yesterday but does not remember before that. He feels more confused and foggy. Denies abdominal pain, fever, chills, shortness of breath. Was admitted to [facility] [place]/03/25-07/08/25 for hepatic encephalpathy, at that time was discharged at baseline mental status, ambulating with minimal tremor, ammonia in low 80s. currently 112. hospital course: Patient was admitted for acute metabolic encephalopathy due to hepatic encephalopathy due to HCV/alcoholic cirrhosis suspected recurrence due to noncompliance with lactulose. Was given lactulose and started to have some bowel movements also given rifaximin. With the bone management lactulose and rifaximin, patient is passing bowels-says that he had 3-4 bowel movements since yesterday. Mental status seems to be improved significantly. For alcohol dependency did not show any sign of withdrawal. Addiction saw the patient. For chronic pancytopenia this is due to cirrhosis. plan: Continue lactulose as prescribed as well as rifaximin. Strongly advised to abstain from alcohol. Monitor BMP and LFT outpatient. High protein and calorie diet. Patient is to follow up out patiently with PCP and GI for further management. Needs to abstain from alcohol before he can be treated for Hep C to ensure compliance with Hep C treatment( as per last GI note 07/04/25). Above management discussed with the patient in detail length with the patient and his mother in detail length-they understand and in agreement with the above plan, time spent 50 minutes and 50% time spent on counseling. Time Attestation Total time managing care of this patient today: 50 mintues. Discharge Coordination Time (in mins): 50 min Quality: Safe Use of Opioids Does Pt have an Active Cancer Diagnosis on the Problem List?: No Quality: Stroke Does the patient have a stroke diagnosis?: No Physical Exam Exam: Exam: Appearance: Alert.? Oriented X3. cvs: rrr, [id number] , no murmur res: clear to auscultation ,no rhonchii or wheezing abd: no rebound or guarding ,nt, bs present. ext pulses present , no cyanosis . neuro: axo3 , nonfocal. Vital Signs: Vital Signs: Last Vital Signs Temp 97.1 F 07/25/25 07:17 Pulse 57 07/25/25 07:17 Resp 18 07/25/25 07:17 BP 110/62 07/25/25 07:17 Pulse Ox 97 07/25/25 07:17 O2 Del Method Room Air 07/25/25 07:17 BMI result Body Mass Index 38.3 DS: Data Data Completed and Pending Completed studies during hospitalization [Text1]: Procedures Detoxification Services for Substance Abuse Treatment (12/13/24) Imaging Chest x-ray: My impression: cxr: No active pulmonary disease. Discharge Plan Discharge Anticipated Discharge Date/Time: 07/23/25 13:29 Patient Disposition: Home, Self-Care Discharge Diagnosis: Hepatic encephalopathy Referrals: Stephen Biggs MD [Primary Care Provider, Internal Medicine] - 1 Week Discharge Medications: New Xifaxan 550 mg Tablet 550 mg PO BID Qty: 180 0RF Continued methadone 10 mg/mL Concentrate 90 mg PO DAILY Rx Instructions: MA[facility] [phone] clonidine HCl 0.1 mg tablet 0.1 mg PO TID sertraline 100 mg tablet 100 mg PO DAILY gabapentin 800 mg tablet 800 mg PO TID spironolactone 50 mg tablet 50 mg PO DAILY lorazepam 0.5 mg tablet 0.5 mg PO BID PRN (Reason: Anxiety) magnesium oxide 400 mg (241.3 mg magnesium) tablet 400 mg PO DAILY tamsulosin 0.4 mg capsule 0.4 mg PO DAILY melatonin 5 mg Tablet 5 - 10 mg PO BEDTIME PRN (Reason: Sleep) nicotine 21 mg/24 hr patch 24 hour 1 patch topical DAILY PRN (Reason: Smoking Cessation) lactulose 10 gram/15 mL solution 60 ml PO TID 90 Days Qty: [id number] 0RF furosemide 20 mg tablet 40 mg PO DAILY Discharge Orders: Discharge Order (Routine); Ordered 07/25/25 Ordered By: Seth Lucero Diet: Advance to usual diet Activity on Discharge: As tolerated Stand Alone Forms: Patient Portal Discharge page Print Language: Paraguayan Care Plan Goals: Manage encephalopathy Health Concerns: Hepatic encephalopathy, continued alcohol use, noncompliance. High protein and calorie diet Needs to stop drinking before he can be treated for Hep C to ensure compliance with Hep C treatment( as per last GI note 07/04/25). Plan of Treatment: Cannot properly treat of the hospital but recommend avoiding alcohol use and taking lactulose as recommended Assessment: See above Patient Instructions: Hepatic Encephalopathy (DC) Discharge Date/Time: 07/25/25 13:50
--- NOTE | 2025-07-25 11:39 | MHC.CM.PN ---
Patient has been medically cleared for dc to home today, self care.
[2025-07-25 11:43] VITALS: BP 100/55; PULSE 66; RESP 16; TEMP 37.1; O2SAT 95
--- NOTE | 2025-07-25 12:39 | P.CDIM_ITS ---
PROVIDER RESPONSE TEXT: To clarify, the appropriate diagnosis supported by the clinical indicators: Other (explain): unclear duration QUERY TEXT: PHYSICIAN'S DOCUMENTATION REQUEST Date of Query: 07/25/2025 07:49 AM EDT Patient Name: Shay Nicholas Admit Date: 07/22/2025 Dear eSth Lucero MD, A review of the medical record indicates additional documentation may be needed. Please review below and update the documentation accordingly. Clinical Indicators: Progress note dated 07/23/25 - Acute metabolic encephalopathy due to hepatic encephalopathy due to HCV/alcoholic cirrhosis. Suspected recurrence due to non-compliance with lactulose. Alcohol dependence. Clarify which of the following accurately represents the acuity of the Viral Hepatitis C: Possible options might include: Acute Chronic Chronic stable condition Other (explain) Clinically unable to determine (explain) Thank you, Lupe Cerda, CCS, CDIS Use of terms such as suspected, likely, concern for, or probable (associated with a specific diagnosis that is being evaluated, monitored, or treated as if it exists) are acceptable and can be coded in the inpatient setting, when documented at the time of discharge. Please use your independent medical judgment in providing your response. THIS QUERY IS PART OF THE PERMANENT MEDICAL RECORD
[2025-07-25] MEDS: Naloxone HCl Nasal TAKE HOME 4 MG SPRAY 8 MG NOSTRILALT (13:20)
== END 2025-07-25 13:50 | disposition home or self-care (01) | DRG 280 ==
LOC: HO.ED 11:17 → HO.EDOVER 15:55 → HO.IMC 16:44
PROVIDERS: Physician Assistant Medical; Admitting Provider Internal Medicine; Emergency Provider Emergency Medicine; PCP Internal Medicine; Visit Provider Internal Medicine
DX: K76.82 Hepatic encephalopathy (principal); K70.30 Alcoholic cirrhosis of liver without ascites; D61.818 Other pancytopenia; B19.20 Unspecified viral hepatitis C without hepatic coma; F10.20 Alcohol dependence, uncomplicated; E66.9 Obesity, unspecified; Z68.38 Body mass index [BMI] 38.0-38.9, adult; F11.20 Opioid dependence, uncomplicated; Z91.148 Patient's other noncompliance with medication regimen for other reason; Z20.822 Contact with and (suspected) exposure to COVID-19; Z79.899 Other long term (current) drug therapy
CPT/HCPCS: 36415; 80048; 80053; 80076; 82140; 83735; 84484; 85025; 85027; 85652; 86140; 87502; 87635; 87637; 93005; 99285; S9485

== ENCOUNTER → 2025-07-22 10:50 | Outpatient (BNV) | payer OTHER, SELFPAY | PROVIDERS: Admitting Provider Internal Medicine; Emergency Provider Emergency Medicine; PCP Internal Medicine; Visit Provider Internal Medicine Cardiovascular Disease | DX: R94.31 Abnormal electrocardiogram [ECG] [EKG] (principal); R53.1 Weakness | CPT/HCPCS: 93010 ==

== ENCOUNTER → 2025-07-22 11:17 | Outpatient (BNV) | payer OTHER, SELFPAY | PROVIDERS: Emergency Provider Emergency Medicine; PCP Internal Medicine; Visit Provider Internal Medicine | DX: F10.90 Alcohol use, unspecified, uncomplicated (principal) | CPT/HCPCS: 99231 ==

== ENCOUNTER → 2025-07-22 15:55 | Outpatient (BNV) | payer OTHER, SELFPAY | PROVIDERS: Admitting Provider Internal Medicine; Emergency Provider Emergency Medicine; PCP Internal Medicine; Visit Provider Nurse Practitioner Psychiatric/Mental Health | DX: F10.90 Alcohol use, unspecified, uncomplicated (principal); F11.20 Opioid dependence, uncomplicated | CPT/HCPCS: 99222 ==

== ENCOUNTER 2025-10-08 21:52 | Outpatient (BNV) | payer OTHER, SELFPAY | END 2025-10-08 22:57 | PROVIDERS: Admitting Provider Physician Assistant; Emergency Provider Emergency Medicine; PCP Internal Medicine; Visit Provider Student in an Organized Health Care Education/Training Program | DX: K74.60 Unspecified cirrhosis of liver (principal); K22.89 Other specified disease of esophagus | CPT/HCPCS: 74176 ==

== ENCOUNTER → 2025-10-08 21:52 | Outpatient (BNV) | payer OTHER, SELFPAY | PROVIDERS: Admitting Provider Physician Assistant; Emergency Provider Emergency Medicine; PCP Internal Medicine; Visit Provider Physician Assistant | DX: G92.8 Other toxic encephalopathy (principal); F41.9 Anxiety disorder, unspecified; F11.90 Opioid use, unspecified, uncomplicated; E72.20 Disorder of urea cycle metabolism, unspecified; K76.82 Hepatic encephalopathy; K74.60 Unspecified cirrhosis of liver; K76.9 Liver disease, unspecified | CPT/HCPCS: 99222; 99232; 99233 ==